=== PATIENT | female | born 2000 | race Caucasian/White ===

== ENCOUNTER 2021-07-23 01:14 | Emergency (ER) | payer MEDICAID, SELFPAY ==
[2021-07-23 01:21] VITALS: BP 127/71; PULSE 79; TEMP 36.7; O2SAT 96; BMI 30.2
[2021-07-23 04:48] VITALS: BP 122/70; PULSE 90; RESP 16; TEMP 36.6; O2SAT 97
--- NOTE | 2021-07-23 04:53 | PC.NURSE ---
Assumed care of pt Pt c/o itching at nape of neck, scalp, abdomen and back of bilateral hands x 2 weeks Per pt, areas get red when she scratches it. No redness in areas currently but pt c/o itching Denies use of any new soaps/lotions. Denies any allergies NAD Will continue to monitor
--- NOTE | 2021-07-23 05:07 | ED.SKABFB ---
HPI - Skin/Abscess/Foreign Bdy General Chief complaint: Skin/Abscess/Foreign Body Stated complaint: rash on arms, hands, neck Time Seen by Provider: 07/23/21 01:29 Source: patient Mode of arrival: ambulatory Limitations: no limitations History of Present Illness HPI narrative: Patient complaining of itchy feeling for last few days no rash no shortness of breath no facial swelling no lip swelling or tongue swelling Related Data Previous Rx's Medication Instructions Recorded hydroxyzine HCl 25 mg tablet 25 mg PO Q6-8H PRN #20 tab 07/23/21 Allergies Allergy/AdvReac Type Severity Reaction Status Date / Time No Known Allergies Allergy Verified 07/23/21 05:11 Review of Systems Review of Systems: Yes all other systems are reviewed and are negative PMFSH Social History Social History Advance Directives: No Patient : No Physical Exam Vital Signs: Vital Signs: Last Vital Signs Temp 97.9 F 07/23/21 04:48 Pulse 90 07/23/21 04:48 Resp 16 07/23/21 04:48 BP 122/70 07/23/21 04:48 Pulse Ox 97 07/23/21 04:48 BMI result Body Mass Index 30.2 Appearance: Alert. Oriented X3. No acute distress. Anxious ENT: Pharynx normal. Oral Mucosa moist Neck: Normal inspection. Neck supple. CVS: Normal heart rate and rhythm. Pulses normal. Respiratory: No respiratory distress. Equal air entry bilateral, no wheezing/rales/rhonchi Abdomen: Soft and nontender. Bowel sounds are present, Skin: Skin warm and dry. Normal skin color. Normal skin turgor. No rash noticed patient has dry skin Extremities: No lower Discharge Plan Discharge Clinical Impression: Dry skin dermatitis Patient Disposition: Home, Self-Care Instructions: Dermatitis (ED) Additional Instructions: You have itching secondary to dry skin Take Atarax for itching and apply moisturizing lotion daily Prescriptions: New hydroxyzine HCl 25 mg tablet 25 mg PO Q6-8H PRN (Reason: itching) Qty: 20 0RF
[2021-07-23] MEDS: hydrOXYzine HCL 25 MG TABLET PO (05:23)
--- NOTE | 2021-07-23 05:26 | PC.NURSE ---
Pt medicated per MAR Pt tolerated well Will continue to monitor
== END 2021-07-23 05:28 | disposition home or self-care (01) ==
PROVIDERS: Emergency Provider Internal Medicine
DX: L30.9 Dermatitis, unspecified (principal); R21 Rash and other nonspecific skin eruption
CPT/HCPCS: 99283

== ENCOUNTER 2021-12-19 11:33 | Emergency (ER) | payer MEDICAID, SELFPAY ==
--- NOTE | ~2021-12-19 | US_ITS ---
EXAMINATION: ULTRASOUND ABDOMEN LIMITED. ULTRASOUND OB LESS THAN 14 WEEKS CLINICAL INFORMATION: Bilateral upper quadrant pain. Positive . LMP 11/04/2021. Distal age by LMP 6 weeks 3 days and KIARA of 08/11/2022. COMPARISON: None TECHNIQUE: Limited ultrasound imaging of gallbladder and CBD was performed. Transabdominal imaging of pelvis is performed. FINDINGS: Limited abdomen: The gallbladder is visualized with no echogenic stones or wall thickening. No tenderness in right upper quadrant. CBD measures 0.2 cm. OB: There is intrauterine gestational sac and yolk sac. pole is not seen. There is no heart rate seen. Right ovary measures 2.4 x 1.6 x 1.5 cm and appears unremarkable. Left ovary measures 2.9 x 2.2 x 2.0 cm. There is corpus luteal cyst measuring 1.8 x 2.0 x 1.2 cm. There is no free fluid in the cul-de-sac. US/US abdomen limited IMPRESSION: Unremarkable gallbladder on limited abdomen ultrasound. Intrauterine gestational sac with yolk sac but no pole seen. No heart rate. This is most likely too early in the . Small corpus luteal cyst left ovary. No free fluid in cul-de-sac.
--- NOTE | ~2021-12-19 | US_ITS ---
EXAMINATION: ULTRASOUND ABDOMEN LIMITED. ULTRASOUND OB LESS THAN 14 WEEKS CLINICAL INFORMATION: Bilateral upper quadrant pain. Positive . LMP 11/04/2021. Distal age by LMP 6 weeks 3 days and KIARA of 08/11/2022. COMPARISON: None TECHNIQUE: Limited ultrasound imaging of gallbladder and CBD was performed. Transabdominal imaging of pelvis is performed. FINDINGS: Limited abdomen: The gallbladder is visualized with no echogenic stones or wall thickening. No tenderness in right upper quadrant. CBD measures 0.2 cm. OB: There is intrauterine gestational sac and yolk sac. pole is not seen. There is no heart rate seen. Right ovary measures 2.4 x 1.6 x 1.5 cm and appears unremarkable. Left ovary measures 2.9 x 2.2 x 2.0 cm. There is corpus luteal cyst measuring 1.8 x 2.0 x 1.2 cm. There is no free fluid in the cul-de-sac. US/US OB <= 14 weeks fetus IMPRESSION: Unremarkable gallbladder on limited abdomen ultrasound. Intrauterine gestational sac with yolk sac but no pole seen. No heart rate. This is most likely too early in the . Small corpus luteal cyst left ovary. No free fluid in cul-de-sac.
[2021-12-19 11:38] VITALS: BP 125/69; PULSE 67; RESP 16; TEMP 36.3; O2SAT 98; BMI 29.9
[2021-12-19 11:49] LABS: MANUAL DIFF FLAG NO
[2021-12-19 11:57] LABS: Basophils Percent Auto 0.8 % (0-2); Eosinophils Absolute Auto 0.1 X10*3/uL (0.0-0.4); Hematocrit 37.5 % (37.0-47.0); Hemoglobin 12.3 g/dl (12.0-16.0); Imm Gran Abs Auto 0.01 X10*3/uL (0.00-0.03); Imm Gran Pct Auto 0.2 % (0.0-0.4); Lymphocytes Absolute Auto 2.2 X10*3/uL (1.2-4.9); Mean Corpuscular HGB Conc 32.8 g/dl (31.0-35.0); Mean Corpuscular Hemoglobin 26.3 pg (27.0-33.0); Mean Corpuscular Volume 80.1 fL (80.0-98.0); Mean Platelet Volume 9.5 fL (9.4-12.3); Monocytes Absolute Auto 0.4 X10*3/uL (0.1-1.2); Monocytes Percent Auto 8.6 % (2-11); Neutrophils Absolute Auto 2.2 x10*3/uL (2.0-8.3); Neutrophils Percent Auto 44.4 % (45-73); Platelet Count 318 X10*3/uL (160-400); Red Blood Count 4.68 X10*6/uL (4.20-5.50); Red Cell Distribution Width 15.4 % (11.0-16.0); White Blood Count 4.9 X10*3/uL (4.8-10.8)
[2021-12-19 12:09] LABS: Anion Gap 13 (12-20); Blood Urea Nitrogen 6 mg/dL (9-16); Calcium 8.7 mg/dL (8.4-10.2); Carbon Dioxide 22 mmol/L (22-29); Chloride 108 mmol/L (96-108); Creatinine Clr Calc Pharmacy 137.1; Estimated Glomerular Filt Rate > 60; Glucose Random 93 mg/dL (60-115); Potassium 4.3 mmol/L (3.3-5.1); Sodium 139 mmol/L (135-145)
[2021-12-19 12:20] LABS: HCG Quantitative 9701 mIU/mL
--- NOTE | 2021-12-19 16:15 | ED_ITS ---
HPI - Abdominal Pain General Chief Complaint: Abdominal Pain <MAGGIE Martínez Last Filed: 12/19/21 18:50> Stated Complaint: abd pain <MAGGIE Martínez Last Filed: 12/19/21 18:50> Time Seen by Provider: 12/19/21 16:02 <MAGGIE Martínez Last Filed: 12/19/21 18:50> Source: patient <MAGGIE Martínez Last Filed: 12/19/21 18:50> Mode of arrival: ambulatory <MAGGIE Martínez Last Filed: 12/19/21 18:50> Limitations: no limitations <MAGGIE Martínez Last Filed: 12/19/21 18:50> History of Present Illness HPI narrative: 21-year-old female who is healthy presents with 2 weeks of left upper quadrant abdominal pain with nausea. Patient denies any associated diarrhea, constipation, urinary symptoms, fevers or chills. Patient tells me she took a home test that was positive and she felt the symptoms may be some morning sickness however the pain got more severe in the last 24 hours which prompted her to come into the emergency room. She is . Her last menstrual cycle was November 04. She has an appointment January 22 with a OBGYN at [place] for her 1st appointment. She has not had an ultrasound to confirm IUP to this point She denies any lower abdominal pain, vaginal bleeding or cramping <MAGGIE Martínez Last Filed: 12/19/21 18:50> Related Data Home Medications: Previous Rx's Medication Instructions Recorded hydroxyzine HCl 25 mg tablet 25 mg PO Q6-8H PRN itching #20 tabs 07/23/21 cefuroxime axetil 250 mg tablet 250 mg PO BID #14 tabs 12/19/21 <MAGGIE Martínez Last Filed: 12/19/21 18:50> Allergies/Adverse Reactions: Allergies Allergy/AdvReac Type Severity Reaction Status Date / Time No Known Allergies Allergy Verified 07/23/21 05:11 <MAGGIE Martínez Last Filed: 12/19/21 18:50> Review of Systems Review of Systems Yes all other systems are reviewed and are negative <Thais Santiago NP - Last Filed: 12/19/21 18:50> Constitutional: Reports no additional constitutional complaints, Denies body ache(s), Denies chills, Denies fever(s), Denies headache(s) and Denies weakness <Thais Santiago NP - Last Filed: 12/19/21 18:50> Eyes: Reports no additional eye complaints and Denies change in vision <Thais Santiago NP - Last Filed: 12/19/21 18:50> Reports system reviewed and no additional complaints, except as documented, Denies dizziness, Denies headache(s), Denies nasal congestion, Denies nasal discharge and Denies neck pain <Thais Santiago NP - Last Filed: 12/19/21 18:50> Cardiovascular: Reports no additional cardiovascular complaints, Denies chest pain, Denies leg edema and Denies dyspnea <Thais Santiago NP - Last Filed: 12/19/21 18:50> Respiratory: Reports no additional respiratory complaints, Denies cough and Denies dyspnea <Thais Santiago NP - Last Filed: 12/19/21 18:50> Gastrointestinal: Reports no additional gastrointestinal complaints, Reports abdominal pain, Denies diarrhea, Reports nausea and Denies vomiting <Thais Santiago NP - Last Filed: 12/19/21 18:50> Genitourinary: Reports no additional female genitourinary complaints and Denies urinary incontinence <Thais Santiago NP - Last Filed: 12/19/21 18:50> Musculoskeletal: Reports no additional musculoskeletal complaints, Denies back pain, Denies arthralgias, Denies joint swelling, Denies neck pain, Denies numbness and Denies tingling <Thais Santiago NP - Last Filed: 12/19/21 18:50> Skin/Breast: Reports system reviewed and no additional complaints, except as docu and Denies rash <Thais Santiago NP - Last Filed: 12/19/21 18:50> Reports system reviewed and no additional complaints, except as documented, Denies dizziness, Denies headache(s), Denies numbness, Denies tingling and Denies weakness <Thais Santiago NP - Last Filed: 12/19/21 18:50> [facility] Past Medical History Attestation statement: The following information was validated with the patient. <Thais Santiago NP - Last Filed: 12/19/21 18:50> Source: old records reviewed and nursing notes reviewed <Thais Santiago NP - Last Filed: 12/19/21 18:50> Social History Social History: Social History Advance Directives: No Advance Directives Information Provided: No <Thais Santiago NP - Last Filed: 12/19/21 18:50> Physical Exam ED Vital Signs: Vital Signs - 24 hr 12/19/21 11:38 Temperature 97.4 F Pulse Rate 67 Respiratory Rate 16 Blood Pressure 125/69 Pulse Oximetry 98 Oxygen Delivery Method Room Air BMI result Body Mass Index 29.9 <Thais Santiago NP - Last Filed: 12/19/21 18:50> Vital Signs - 24 hr 12/19/21 11:38 Temperature 97.4 F Pulse Rate 67 Respiratory Rate 16 Blood Pressure 125/69 Pulse Oximetry 98 Oxygen Delivery Method Room Air BMI result Body Mass Index 29.9 <BOBY Conti - Last Filed: 12/19/21 19:29> Const General: cooperative, healthy appearing, comfortable and no acute distress <Thais Santiago NP - Last Filed: 12/19/21 18:50> Orientation/consciousness: patient oriented x3 <Thais Santiago NP - Last Filed: 12/19/21 18:50> Limitations: no limitations <Thais Santiago NP - Last Filed: 12/19/21 18:50> HENMT Head: Yes normal to inspection <Thais Santiago NP - Last Filed: 12/19/21 18:50> Ears: hearing grossly normal bilaterally <Thais Santiago NP - Last Filed: 12/19/21 18:50> Eyes General: appearance normal, both eyes and all related structures <Thais Santiago NP - Last Filed: 12/19/21 18:50> Pupils: Equal, round and reactive pupils present <Thais Santiago NP - Last Filed: 12/19/21 18:50> Neck Neck: Yes normal visual inspection, Yes full ROM and Yes no lymphadenopathy <Thais Santiago NP - Last Filed: 12/19/21 18:50> Chest Chest palpation & inspection: normal inspection of the chest <Thais Santiago NP - Last Filed: 12/19/21 18:50> Resp Effort & Inspection: normal respiratory effort <Thais Santiago NP - Last Filed: 12/19/21 18:5 0> Auscultation: clear to auscultation bilaterally <Thais Santiago NP - Last Filed: 12/19/21 18:50> Cardio Rate: regular rate <Thais Santiago NP - Last Filed: 12/19/21 18:50> Rhythm: regular rhythm <Thais Santiago NP - Last Filed: 12/19/21 18:50> Peripheral pulses: Peripheral pulses 2+ throughout <Thais Santiago [employer] - Last Filed: 12/19/21 18:50> GI Inspection: Yes normal to inspection <Thais Santiago NP - Last Filed: 12/19/21 18:50> Palpation (GI): Soft to palpation and Tenderness to palpation present (GI) in the LUQ <Thais Santiago NP - Last Filed: 12/19/21 18:50> General: Yes no CVA tenderness <Thais Santiago NP - Last Filed: 12/19/21 18:50> Back/Spine/Pelvis Back: no CVA tenderness <Thais Santiago NP - Last Filed: 12/19/21 18:50> Thoracic/Lumbar Spine: thoracic and lumbar spine normal to inspection <Thais Santiago NP - Last Filed: 12/19/21 18:50> Skin General skin exam: no rashes or lesions noted <Thais Santiago NP - Last Filed: 12/19/21 18:50> Neuro General: patient oriented x3 and moves all extremities <Thais Santiago NP - Last Filed: 12/19/21 18:50> Cranial nerves: Yes Equal, round and reactive pupils present <Thais Santiago NP - Last Filed: 12/19/21 18:50> Cognition (Neuro): normal cognition <Thais Santiago NP - Last Filed: 12/19/21 18:50> Gait exam (Neuro): Normal gait present <Thais Santiago NP - Last Filed: 12/19/21 18:50> Course Course Course Narrative: UA is consistent with UTI. Labs unremarkable. Patient will have abdominal ultrasound as well as ultrasound. No -related complaints. <Thais Santiago NP - Last Filed: 12/19/21 18:50> Reevaluation(s) Reevaluation #1: 1850- SIgn out to [facility] pending ultrasound and disposition <Thais Santiago NP - Last Filed: 12/19/21 18:50> Reevaluation #2: Ultrasound showing no acute intra abdominal pathology. Gestational sac and yolk were seen intrauterine, no heart tones most likely due to too early in . At this time patient is stable for discharge home with plan to follow-up with her OB. Antibiotics sent to her pharmacy for UTI. <BOBY Conti - Last Filed: 12/19/21 19:29> MDM - Abdominal Pain MDM Narrative Medical decision making narrative: 21-year-old female who is currently here with left upper quadrant abdominal pain for the last 2 weeks worsened over the last 24 hours with intermittent nausea. Patient will need labs, UA, anticipate US. No related complaints <Thais Santiago NP - Last Filed: 12/19/21 18:50> Medical Records Attestation: I reviewed the patient's medical records. <Thais Santiago NP - Last Filed: 12/19/21 18:50> Lab Data Attestation: I reviewed the patient's lab results. <Thais Santiago NP - Last Filed: 12/19/21 18:50> Result diagrams: : 12/19/21 11:45 08/16/22 11:45 <Thais Santiago, [employer] - Last Filed: 12/19/21 18:50> Labs: Lab Results 12/19/21 12/19/21 12/19/21 Range/Units 11:45 11:45 16:31 WBC 4.9 (4.8-10.8) X10*3/uL RBC 4.68 (4.20-5.50) X10*6/uL Hgb 12.3 (12.0-16.0) g/dl Hct 37.5 (37.0-47.0) % MCV 80.1 (80.0-98.0) fL MCH 26.3 L (27.0-33.0) pg MCHC 32.8 (31.0-35.0) g/dl RDW 15.4 (11.0-16.0) % Plt Count 318 (160-400) X10*3/uL MPV 9.5 (9.4-12.3) fL Immature Gran % (Auto) 0.2 (0.0-0.4) % Neut % (Auto) 44.4 L (45-73) % Lymph % (Auto) 45.0 H (20-40) % [place] % (Auto) 8.6 (2-11) % Eos % (Auto) 1.0 (0-4) % Baso % (Auto) 0.8 (0-2) % Lymph # (Auto) 2.2 (1.2-4.9) X10*3/uL [place] # (Auto) 0.4 (0.1-1.2) X10*3/uL Eos # (Auto) 0.1 (0.0-0.4) X10*3/uL Baso # (Auto) 0.0 (0.0-0.2) X10*3/uL Abs Immat Gran (auto) 0.01 (0.00-0.03) X10*3/uL Absolute Neuts (auto) 2.2 (2.0-8.3) x10*3/uL Absolute Nucleated RBC 0.000 (0.0-0.012) X10*3/uL Nucleated RBC % (auto) 0.0 (0.0-0.2) /100WBC Sodium 139 (135-145) mmol/L Potassium 4.3 (3.3-5.1) mmol/L Chloride 108 (96-108) mmol/L Carbon Dioxide 22 (22-29) mmol/L Anion Gap 13 (12-20) BUN 6 L (9-16) mg/dL Creatinine 0.71 (0.5-1.4) mg/dL Estim Creat Clear Calc 137.1 Estimated GFR > 60 Random Glucose 93 (60-115) mg/dL Calcium 8.7 (8.4-10.2) mg/dL Total Bilirubin 0.3 (0.0-1.0) mg/dL Direct Bilirubin 0.2 (0.0-0.5) mg/dL AST 14 (5-31) U/L ALT 12 (0-31) U/L Alkaline Phosphatase 80 (39-117) U/L Total Protein 7.2 (6.5-8.0) g/dL Albumin 4.2 (3.5-5.0) g/dL Lipase 31 (8-78) U/L Beta HCG, Quant 9701 mIU/mL Urine Color Yellow Urine Appearance Cloudy Urine pH 6.5 (5.0-8.0) Ur Specific [place] 1.025 (1.005-1.025) Urine Protein Negative (Neg-Trace) mg/dL Urine Glucose (UA) Negative (Negative) mg/dL Urine Ketones Trace (Negative) mg/dL Urine Blood Negative (Negative) Urine Nitrite Negative (Negative) Ur Leukocyte Esterase Moderate (2+) H (Negative) Urine RBC 3-5 H (0-2) /HPF Urine WBC 11-20 H (0-5) /HPF Ur Squamous Epith Cells 11-20 (0-2) /HPF Urine Bacteria 2+ (None Seen) Hyaline Casts 0-2 (0-2) /LPF <Thais Santiago, [employer] - Last Filed: 12/19/21 18:50> Lab Results 12/19/21 12/19/21 12/19/21 Range/Units 11:45 11:45 16:31 WBC 4.9 (4.8-10.8) X10*3/uL RBC 4.68 (4.20-5.50) X10*6/uL Hgb 12.3 (12.0-16.0) g/dl Hct 37.5 (37.0-47.0) % MCV 80.1 (80.0-98.0) fL MCH 26.3 L (27.0-33.0) pg MCHC 32.8 (31.0-35.0) g/dl RDW 15.4 (11.0-16.0) % Plt Count 318 (160-400) X10*3/uL MPV 9.5 (9.4-12.3) fL Immature Gran % (Auto) 0.2 (0.0-0.4) % Neut % (Auto) 44.4 L (45-73) % Lymph % (Auto) 45.0 H (20-40) % [place] % (Auto) 8.6 (2-11) % Eos % (Auto) 1.0 (0-4) % Baso % (Auto) 0.8 (0-2) % Lymph # (Auto) 2.2 (1.2-4.9) X10*3/uL [place] # (Auto) 0.4 (0.1-1.2) X10*3/uL Eos # (Auto) 0.1 (0.0-0.4) X10*3/uL Baso # (Auto) 0.0 (0.0-0.2) X10*3/uL Abs Immat Gran (auto) 0.01 (0.00-0.03) X10*3/uL Absolute Neuts (auto) 2.2 (2.0-8.3) x10*3/uL Absolute Nucleated RBC 0.000 (0.0-0.012) X10*3/uL Nucleated RBC % (auto) 0.0 (0.0-0.2) /100WBC Sodium 139 (135-145) mmol/L Potassium 4.3 (3.3-5.1) mmol/L Chloride 108 (96-108) mmol/L Carbon Dioxide 22 (22-29) mmol/L Anion Gap 13 (12-20) BUN 6 L (9-16) mg/dL Creatinine 0.71 (0.5-1.4) mg/dL Estim Creat Clear Calc 137.1 Estimated GFR > 60 Random Glucose 93 (60-115) mg/dL Calcium 8.7 (8.4-10.2) mg/dL Total Bilirubin 0.3 (0.0-1.0) mg/dL Direct Bilirubin 0.2 (0.0-0.5) mg/dL AST 14 (5-31) U/L ALT 12 (0-31) U/L Alkaline Phosphatase 80 (39-117) U/L Total Protein 7.2 (6.5-8.0) g/dL Albumin 4.2 (3.5-5.0) g/dL Lipase 31 (8-78) U/L Beta HCG, Quant 9701 mIU/mL Urine Color Yellow Urine Appearance Cloudy Urine pH 6.5 (5.0-8.0) Ur Specific [place] 1.025 (1.005-1.025) Urine Protein Negative (Neg-Trace) mg/dL Urine Glucose (UA) Negative (Negative) mg/dL Urine Ketones Trace (Negative) mg/dL Urine Blood Negative (Negative) Urine Nitrite Negative (Negative) Ur Leukocyte Esterase Moderate (2+) H (Negative) Urine RBC 3-5 H (0-2) /HPF Urine WBC 11-20 H (0-5) /HPF Ur Squamous Epith Cells 11-20 (0-2) /HPF Urine Bacteria 2+ (None Seen) Hyaline Casts 0-2 (0-2) /LPF <BOBY Conti - Last Filed: 12/19/21 19:29> Discharge Plan Discharge Clinical Impression: Abdominal pain, UTI (urinary tract infection) <Thais Santiago NP - Last Filed: 12/19/21 18:50> Patient Disposition: Still a Patient <Thais Santiago NP - Last Filed: 12/19/21 18:50> Instructions: Abdominal Pain (ED), Urinary Tract Infection in (ED) <Thais Santiago NP - Last Filed: 12/19/21 18:50> Additional Instructions: keep your appointment with the [facility] Tylenol only for pain Take your vitamins Return for intractable vomiting, fever, severe abdominal pain, vaginal bleeding <Thais Santiago NP - Last Filed: 12/19/21 18:50> Prescriptions: New cefuroxime axetil 250 mg tablet 250 mg PO BID Qty: 14 0RF No Action hydroxyzine HCl 25 mg tablet 25 mg PO Q6-8H PRN (Reason: itching) Qty: 20 0RF <Thais Santiago NP - Last Filed: 12/19/21 18:50> Referrals: Physician,Nonstaff [Primary Care Provider] - <Thais Santiago NP - Last Filed: 12/19/21 18:50>
[2021-12-19 16:38] LABS: Appearance Urine Cloudy; Color Urine Yellow; Glucose Urine UA Negative (Negative); Leukocyte Esterase Urine Moderate (2+) (Negative); Nitrite Urine Negative (Negative); PH 6.5 (5.0-8.0); Specific Gravity - Urine 1.025 (1.005-1.025); Urine Blood Negative (Negative); Urine Ketones Trace mg/dL (Negative); Urine Protein Negative (Neg-Trace)
[2021-12-19 16:42] LABS: Alanine Aminotransferase 12 U/L (0-31); Albumin Level 4.2 g/dL (3.5-5.0); Alkaline Phosphatase 80 U/L (39-117); Aspartate Amino Transferase 14 U/L (5-31); Bilirubin Direct 0.2 mg/dL (0.0-0.5); Bilirubin Total 0.3 mg/dL (0.0-1.0); Lipase 31 U/L (8-78); Total Protein 7.2 g/dL (6.5-8.0)
[2021-12-19 16:47] LABS: Bacteria Urine 2+ (None Seen); Hyaline Casts Urine 0-2 /LPF (0-2); UACC Culture Trigger YES
[2021-12-19 19:39] VITALS: BP 122/71; PULSE 75; RESP 12; TEMP 37.2; O2SAT 98
== END 2021-12-19 19:40 | disposition still patient (30) ==
PROVIDERS: Emergency Medicine; Nurse Practitioner Family; Emergency Provider Internal Medicine
DX: N39.0 Urinary tract infection, site not specified (principal); R10.12 Left upper quadrant pain; Z79.899 Other long term (current) drug therapy
CPT/HCPCS: 36415; 76705; 76801; 80048; 80076; 81001; 83690; 84702; 85025; 87086; 99283; 99284

== ENCOUNTER 2023-02-04 11:36 | Outpatient (REF) | payer MEDICAID, SELFPAY ==
--- NOTE | ~2023-02-04 | XR_ITS ---
EXAMINATION: XR CHEST CLINICAL INFORMATION: Chest pain since last night. Atypical chest pain COMPARISON: None available. TECHNIQUE: 2 views of the chest were obtained. 11:45 AM FINDINGS: No significant abnormality is noted involving the heart, lungs, mediastinum, bony thorax or soft tissues. XR/XR chest 2V IMPRESSION: No acute cardiopulmonary disease.
== END 2023-02-04 11:37 | disposition home or self-care (01) ==
LOC: HO.HHCX 11:36
PROVIDERS: Visit Provider Internal Medicine
DX: R07.89 Other chest pain (principal)
CPT/HCPCS: 36415; 71046; 85025; 85379; 85652

== ENCOUNTER 2023-02-04 12:21 | Outpatient (REF) | payer MEDICAID, SELFPAY ==
[2023-02-04 12:53] LABS: MANUAL DIFF FLAG NO
[2023-02-04 13:48] LABS: Basophils Percent Auto 0.7 % (0-2); Eosinophils Absolute Auto 0.1 X10*3/uL (0.0-0.4); Eosinophils Percent Auto 2.2 % (0-4); Hematocrit 38.3 % (37.0-47.0); Hemoglobin 11.7 g/dl (12.0-16.0); Imm Gran Abs Auto 0.02 X10*3/uL (0.00-0.03); Imm Gran Pct Auto 0.4 % (0.0-0.4); Lymphocytes Absolute Auto 2.5 X10*3/uL (1.2-4.9); Lymphocytes Percent Auto 45.1 % (20-40); Mean Corpuscular HGB Conc 30.5 g/dl (31.0-35.0); Mean Corpuscular Hemoglobin 23.2 pg (27.0-33.0); Mean Corpuscular Volume 75.8 fL (80.0-98.0); Mean Platelet Volume 9.7 fL (9.4-12.3); Monocytes Absolute Auto 0.5 X10*3/uL (0.1-1.2); Monocytes Percent Auto 8.1 % (2-11); Neutrophils Absolute Auto 2.4 x10*3/uL (2.0-8.3); Neutrophils Percent Auto 43.5 % (45-73); Platelet Count 278 X10*3/uL (160-400); Red Blood Count 5.05 X10*6/uL (4.20-5.50); Red Cell Distribution Width 21.7 % (11.0-16.0); White Blood Count 5.5 X10*3/uL (4.8-10.8)
[2023-02-04 14:19] LABS: D Dimer High Sensitivity 263 NG/ML
[2023-02-04 14:20] LABS: Erythrocyte Sedimentation Rate 22 MM/HR (0-20)
== END 2023-02-04 12:22 | disposition home or self-care (01) ==
LOC: HO.LAB 12:21
PROVIDERS: PCP Family Medicine; Visit Provider Internal Medicine
DX: R07.89 Other chest pain (principal)
CPT/HCPCS: 36415; 85025; 85379; 85652

== ENCOUNTER 2023-03-08 09:44 | Outpatient (REF) | payer MEDICAID, SELFPAY ==
[2023-03-08 14:44] LABS: MANUAL DIFF FLAG NO
[2023-03-08 14:47] LABS: Basophils Absolute Auto 0.1 X10*3/uL (0.0-0.2); Eosinophils Absolute Auto 0.2 X10*3/uL (0.0-0.4); Eosinophils Percent Auto 2.8 % (0-4); Hematocrit 39.3 % (37.0-47.0); Hemoglobin 12.5 g/dl (12.0-16.0); Imm Gran Abs Auto 0.01 X10*3/uL (0.00-0.03); Imm Gran Pct Auto 0.2 % (0.0-0.4); Lymphocytes Absolute Auto 2.7 X10*3/uL (1.2-4.9); Lymphocytes Percent Auto 43.2 % (20-40); Mean Corpuscular HGB Conc 31.8 g/dl (31.0-35.0); Mean Corpuscular Hemoglobin 25.2 pg (27.0-33.0); Mean Corpuscular Volume 79.1 fL (80.0-98.0); Mean Platelet Volume 9.5 fL (9.4-12.3); Monocytes Absolute Auto 0.6 X10*3/uL (0.1-1.2); Monocytes Percent Auto 9.5 % (2-11); Neutrophils Absolute Auto 2.7 x10*3/uL (2.0-8.3); Neutrophils Percent Auto 43.3 % (45-73); Platelet Count 388 X10*3/uL (160-400); Red Blood Count 4.97 X10*6/uL (4.20-5.50); Red Cell Distribution Width 22.6 % (11.0-16.0); White Blood Count 6.1 X10*3/uL (4.8-10.8)
[2023-03-08 15:41] LABS: Iron 38 mcg/dL (30-160); Percent Iron Saturation 12 % (15-50); Total Iron Binding Capacity 311 mcg/dL (228-428); Unsaturated Iron Binding 273 ug/dL
[2023-03-08 15:56] LABS: Ferritin 18 ng/mL (10-122)
[2023-03-12 12:18] LABS: VITAMIN D (1,25 OH) D3 53 pg/mL; Vit D (1,25-Dihydroxy) Total 53 pg/mL (18-72); Vitamin D (1,25 OH) D2 <8 pg/mL
== END 2023-03-08 09:45 | disposition home or self-care (01) ==
LOC: HO.CHCLDS 09:44
PROVIDERS: Visit Provider Family Medicine
DX: D50.9 Iron deficiency anemia, unspecified (principal); E55.9 Vitamin D deficiency, unspecified
CPT/HCPCS: 36415; 82652; 82728; 83540; 85025

== ENCOUNTER 2023-03-26 00:02 | Emergency (ER) | payer MEDICAID, SELFPAY ==
[2023-03-26 00:22] VITALS: BP 124/72; PULSE 67; RESP 18; TEMP 37; O2SAT 98; BMI 30.2
--- NOTE | 2023-03-26 00:38 | ED.GENADULT ---
HPI - General Adult General Chief complaint: General Medical Stated complaint: Rectal bleeding Time Seen by Provider: 03/26/23 00:35 Source: patient Mode of arrival: ambulatory Limitations: no limitations History of Present Illness HPI narrative: Patient 3 months noticed bright red blood when she wiped earlier today patient has been constipated lately no history of hemorrhoids no significant abdominal pain no nausea no vomiting no blood clots no significant family history of chronic inflammatory bowel disease no rectal pain Related Data Previous Rx's Medication Instructions Recorded hydroxyzine HCl 25 mg tablet 25 mg PO Q6-8H PRN itching #20 tabs 07/23/21 cefuroxime axetil 250 mg tablet 250 mg PO BID #14 tabs 12/19/21 hydrocortisone acetate 25 mg 25 mg [place] BID #24 ea 03/26/23 rectal suppository (Anusol-HC) polyethylene glycol 3350 17 17 g PO DAILY #510 grams 03/26/23 gram/dose oral powder (Miralax) Allergies Allergy/AdvReac Type Severity Reaction Status Date / Time No Known Allergies Allergy Verified 03/26/23 00:21 Review of Systems Review of Systems: Yes all other systems are reviewed and are negative [facility] Social History Social History Smoked in Last 30 Days: No Use of substances other than those prescribed or required for medical reasons: No Advance Directives: No Advance Directives Information Provided: Yes Physical Exam ED Vital Signs: Vital Signs - 24 hr 03/26/23 00:22 Temperature 98.6 F Pulse Rate 67 Respiratory Rate 18 Blood Pressure 124/72 Pulse Oximetry 98 Oxygen Delivery Method Room Air BMI result Body Mass Index 30.2 Appearance: Alert. Oriented X3. No acute distress. Eyes: PERRLA, No Nystagmus ENT: Pharynx normal. Oral Mucosa moist Neck: Normal inspection. Neck supple. CVS: Normal heart rate and rhythm. Pulses normal. Respiratory: No respiratory distress. Equal air entry bilateral, no wheezing/rales/rhonchi Abdomen: Soft and nontender. Bowel sounds are present, no mass palpable, no CVA tenderness rectal: Patient deferred exam Skin: Skin warm and dry. Normal skin color. Normal skin turgor. Extremities: No lower extremity edema. No calf tenderness Neuro: Oriented X 3. Medications Administered Discontinued Medications Generic Name Dose Route Start Last Admin Trade Name Freq PRN Reason Stop Dose Admin Magnesium Hydroxide 30 ml 03/26/23 00:46 03/26/23 01:04 Milk Of Magnesia 30 Ml Oral.Susp PO 03/26/23 00:47 30 ml ONCE ONE Administration Medical Decision Making Medical Decision Making [facility] Narrative: Patient clinically with internal hemorrhoids with minor bleed H&H stable chemistries stable advised to use Anusol suppository and avoid constipation Differential Diagnosis Differential Diagnoses: The differential diagnosis associated with the presentation includes Lab Data [facility] Lab Attestation statement: I reviewed the patient's lab results. 03/26/23 00:35 03/26/23 00:35 Labs: Lab Results 03/26/23 Range/Units 00:35 WBC 7.0 (4.8-10.8) X10*3/uL RBC 4.51 (4.20-5.50) X10*6/uL Hgb 11.3 L (12.0-16.0) g/dl Hct 35.5 L (37.0-47.0) % MCV 78.7 L (80.0-98.0) fL MCH 25.1 L (27.0-33.0) pg MCHC 31.8 (31.0-35.0) g/dl RDW 19.4 H (11.0-16.0) % Plt Count 289 D (160-400) X10*3/uL MPV 9.4 (9.4-12.3) fL Immature Gran % (Auto) 0.3 (0.0-0.4) % Neut % (Auto) 44.8 L (45-73) % Lymph % (Auto) 43.2 H (20-40) % [place] % (Auto) 8.7 (2-11) % Eos % (Auto) 2.4 (0-4) % Baso % (Auto) 0.6 (0-2) % Lymph # (Auto) 3.0 (1.2-4.9) X10*3/uL [place] # (Auto) 0.6 (0.1-1.2) X10*3/uL Eos # (Auto) 0.2 (0.0-0.4) X10*3/uL Baso # (Auto) 0.0 (0.0-0.2) X10*3/uL Abs Immat Gran (auto) 0.02 (0.00-0.03) X10*3/uL Absolute Neuts (auto) 3.2 (2.0-8.3) x10*3/uL Absolute Nucleated RBC 0.000 (0.0-0.012) X10*3/uL Nucleated RBC % (auto) 0.0 (0.0-0.2) /100WBC Sodium 140 (135-145) mmol/L Potassium 3.6 (3.3-5.1) mmol/L Chloride 109 H (96-108) mmol/L Carbon Dioxide 25 (22-29) mmol/L Anion Gap 10 L (12-20) BUN 10 (9-16) mg/dL Creatinine 0.71 (0.5-1.4) mg/dL Estim Creat Clear Calc 136.3 Estimated GFR > 60 Random Glucose 117 H (60-115) mg/dL Calcium 8.8 (8.4-10.2) mg/dL Total Bilirubin 0.2 (0.0-1.0) mg/dL AST 14 (5-31) U/L ALT 15 (0-31) U/L Alkaline Phosphatase 96 (39-117) U/L Total Protein 6.8 (6.5-8.0) g/dL Albumin 3.7 (3.5-5.0) g/dL Discharge Plan Discharge Clinical Impression: Bleeding internal hemorrhoids, Constipation Patient Disposition: Home, Self-Care Instructions: Constipation (ED), Hemorrhoids (ED) Additional Instructions: Avoid constipation Take stool softener as prescribed Use Anusol suppository twice daily as advised Prescriptions: New polyethylene glycol 3350 [Miralax] 17 gram/dose powder 17 g PO DAILY Qty: 510 0RF hydrocortisone acetate [Anusol-HC] 25 mg suppository 25 mg [place] BID Qty: 24 0RF No Action hydroxyzine HCl 25 mg tablet 25 mg PO Q6-8H PRN (Reason: itching) Qty: 20 0RF cefuroxime axetil 250 mg tablet 250 mg PO BID Qty: 14 0RF
[2023-03-26 00:39] LABS: Basophils Percent Auto 0.6 % (0-2); Eosinophils Absolute Auto 0.2 X10*3/uL (0.0-0.4); Eosinophils Percent Auto 2.4 % (0-4); Hematocrit 35.5 % (37.0-47.0); Hemoglobin 11.3 g/dl (12.0-16.0); Imm Gran Abs Auto 0.02 X10*3/uL (0.00-0.03); Imm Gran Pct Auto 0.3 % (0.0-0.4); Lymphocytes Percent Auto 43.2 % (20-40); MANUAL DIFF FLAG NO; Mean Corpuscular HGB Conc 31.8 g/dl (31.0-35.0); Mean Corpuscular Hemoglobin 25.1 pg (27.0-33.0); Mean Corpuscular Volume 78.7 fL (80.0-98.0); Mean Platelet Volume 9.4 fL (9.4-12.3); Monocytes Absolute Auto 0.6 X10*3/uL (0.1-1.2); Monocytes Percent Auto 8.7 % (2-11); Neutrophils Absolute Auto 3.2 x10*3/uL (2.0-8.3); Neutrophils Percent Auto 44.8 % (45-73); Platelet Count 289 X10*3/uL (160-400); Red Blood Count 4.51 X10*6/uL (4.20-5.50); Red Cell Distribution Width 19.4 % (11.0-16.0)
--- OUTSIDE RECORDS SUMMARY | 2023-03-26 00:44 | XMS_ITS | Continuity of Care Document ---
Author Name Unknown Organization [facility] ter Address [address] [place] [id number]- Care Team Providers Care Commissioning Manager Name Role Phone Not on Staff, PCP Primary Care Physician Unavail able Encounter [facility] Date(s): 12/19/22 - 12/21/[address] [address]- Discharge Disposition: A-D/C Home Attending Physician: Rosemarie Hearn DO Admitting Physician: Rosemarie Hearn DO Referring Physician: Rosemarie Hearn DO Allergies, Adverse Reactions, Alerts No Known Medication Allergies Immunizations Given and Recorded Vaccine Date Status Refusal Reason tetanus/diphtheria/pertussis, acel(Tdap) 10/26/22 Given Medications Acetaminophen Tablet 650 mg, Tablet, By Mouth, Every 4 hours, PRN for Pain , Mild, (1-3), may give 325mg per patient preference and re-dose with 325mg within 4 hours, if needed. Patient should only receive a total of 650mg of Acetaminophen every 4 hours., Routine, 12/19... Start Date: 12/19/22 Stop Date: 12/22/22 Status: Discontinued Alcohol Wipes See Instructions, # 200 each, Maintenance, glucose monitoring 4 times daily during , 10/15/22 11:28:00 EDT, Supply, 168, cm, 10/03/22 14:55:00 EDT, Height, 86, kg, 10/01/22 20:23:00 EDT, DryWeight Start Date: 10/15/22 Status: Ordered aspirin 81 mg oral delayed release tablet See Instructions, 2 tablet By Mouth Daily at bedtime, # 60 tablet, Refills 8, Tot. Refills 8, Maintenance, 08/30/22 14:18:00 EDT, Instructions Replace Required Details, Route to Pharmacy Electronically, [facility] #[id number], Partial fill upon p... Start Date: 08/30/22 Status: Ordered docusate sodium 100 mg oral capsule 1 capsule = 100 mg, By Mouth, 2 times a day, PRN as needed for constipation, # 20 capsule, 2 Refills, Maintenance, 11/15/22 12:51:00 EDT, Capsule, [facility] #[id number], Partial fill upon patient request if the prescription is for a schedule II... Start Date: 11/15/22 Status: Ordered famotidine 20 mg oral tablet 20 mg, 1, tablet, By Mouth, 2 times a day, Take twice daily for acid reflux and to help with nauseaand vomiting., # 60 tablet, Refills 2, Tot. Refills 2, Maintenance, 10/03/22 15:40:00 EDT, Route toPharmacy Electronically, [facility] #[id number]... Start Date: 10/03/22 Status: Ordered Freestyle Lite Lancets See Instructions, # 200 each, Maintenance, glucose monitoring 4 times daily during , 10/15/22 11:28:00 EDT, Supply, 168, cm, 10/03/22 14:55:00 EDT, Height, 86, kg, 10/01/22 20:23:00 EDT, DryWeight Start Date: 10/15/22 Status: Ordered ibuprofen 600 mg oral tablet 600 mg, 1, tablet, By Mouth, Every 6 hours, # 40 tablet, Refills 0, Tot. Refills 0, Maintenance, 12/20/22 9:10:00 EDT, Route to Pharmacy Electronically, [facility] #[id number], Partial fill uponpatient request if the prescription is for a schedu... Start Date: 12/20/22 Status: Ordered Ibuprofen Tablet 800 mg, Tablet, By Mouth, Every 8 hours, PRN for Pain , Moderate, (4-6), may give 400mg per patientpreference and re-dose with 400mg within 8 hours if needed. Patient should only receive a total of 800mg of Ibuprofen every 8 hours., Routine, ... Start Date: 12/19/22 Stop Date: 12/22/22 Status: Discontinued MiraLax oral powder for reconstitution = 17 Gm, By Mouth, Daily, Take daily as needed for constipation, # 255 Gm, 1 Refills, Maintenance, 06/25/22 15:48:00 EST, REC Powder, [facility] #[id number], Partial fill upon patient request ifthe prescription is for a schedule II opioid drug.,... Start Date: 06/25/22 Status: Ordered MiraLax oral powder for reconstitution = 17 Gm, By Mouth, Daily, dissolve in water before taking, # 255 Gm, 0 Refills, Maintenance, 12/20/22 9:10:00 EDT, REC Powder, [facility] #[id number], Partial fill upon patient request if the prescription is for a schedule II opioid drug., 17 Gm... Start Date: 12/20/22 Status: Ordered MiraLax oral powder for reconstitution = 17 Gm, By Mouth, Daily, dissolve in water before taking. Use daily until regular bowel movements., # 255 Gm, 4 Refills, Maintenance, 11/15/22 12:51:00 EDT, [id number], Partial fill upon patient request if the prescriptio... Start Date: 11/15/22 Status: Ordered Multivitamins with Folic Acid 1 mg oral tablet 1 tablet, By Mouth, Daily, # 30 tablet, 0 Refills, Maintenance, 03/07/22 11:03:00 EDT, Tablet, Partial fill upon patient request if the prescription is for a schedule II opioid drug. Start Date: 03/07/22 Status: Ordered simethicone 180 mg oral capsule 1 capsule = 180 mg, By Mouth, 4 times a day, # 60 capsule, 0 Refills, Maintenance, 12/20/22 9:10:00EDT, Capsule, [facility] #[id number], Partial fill upon patient request if the prescription isfor a schedule II opioid drug., 168, cm, 12/20/22 8... Start Date: 12/20/22 Status: Ordered Tylenol 325 mg oral tablet 975 mg, 3, tablet, By Mouth, Every 8 hours, # 60 tablet, Refills 0, Tot. Refills 0, Maintenance, 12/20/22 9:10:00 EDT, Route to Pharmacy Electronically, [facility] #[id number], Partial fill uponpatient request if the prescription is for a schedu... Start Date: 12/20/22 Status: Ordered Unisom 25 mg oral tablet 1 tablet = 25 mg, By Mouth, Daily at bedtime, PRN for sleep, # 32 tablet, 0 Refills, Maintenance, 07/03/22 5:15:00 EST, Tablet, [facility] #[id number], Partial fill upon patient request if the prescription is for a schedule II opioid drug., 168,... Start Date: 07/03/22 Status: Ordered Problem List Condition Confirmation Course Effective Dates Status Health St atus Informant Marginal insertion of umbilical cord affecting management of mother Confirmed Active Anemia Confirmed Active Constipation Confirmed Active Increased nuchal translucency space on ultrasound Confirmed Active Frequent headaches Confirmed Active Acid reflux Confirmed Active Gestational diabetes Confirmed Active Three previous miscarriages, affecting care of mother in first trimester, antepartum Confirmed Active H/O gestational diabetes in prior , currently 1 Confirmed Active History of placental abruption Confirmed Active Confirmed Active 99069 then 3 miscarriages Vital Signs Most recent to oldest [Reference Range]: 1 2 3 Height 168 cm (12/21/22 8:50 AM) 168 cm (12/20/22 4:45 PM) 168 cm (12/20/22 8:57 AM) Weight 91.8 kg (12/19/22 6:25 AM) 91.8 kg (12/19/22 2:23 AM) Oxygen Saturation [94-100 %] 97 % (12/21/22 8:50 AM) 100 % (12/21/22 12:00 AM) 98 % (12/20/22 4:45 PM) Pulse Rate [55-90 bpm] 68 bpm (12/21/22 8:50 AM) 67 bpm (12/21/22 12:00 AM) 76 bpm (12/20/22 4:45 PM) Body Mass Index [18.5-24.99 kg/m2] 32.53 kg/m2 *>HHI* (12/19/22 6:25 AM) Blood Pressure [90-138/55-84 mm Hg] 118/77mm Hg (12/21/22 8:50 AM) 117/68mm Hg (12/21/22 12:00 AM) 121/74mm Hg (12/20/22 4:45 PM) Respiratory Rate [16-30 br/min] 18 br/min (12/21/22 10:00 AM) 18 br/min (12/21/22 10:00 AM) 18 br/min (12/21/22 8:50 AM) Temperature [96.8-100.4 DegF] 98.1 DegF (12/21/22 8:50 AM) 98.4 DegF (12/21/22 12:00 AM) 98.2 DegF (12/20/22 4:45 PM) Mode of Delivery (Oxygen) Room air (12/21/22 8:50 AM) Room air (12/21/22 12:00 AM) Room air (12/20/22 4:45 PM) Blood pressure sites Arm, right (12/21/22 8:50 AM) Arm, right (12/21/22 12:00 AM) Arm, right (12/20/22 4:45 PM) Temperature Route Oral (12/21/22 8:50 AM) Oral (12/21/22 12:00 AM) Oral (12/20/22 4:45 PM) Dry Weight 91.8 kg (12/19/22 6:25 AM) 91.8 kg (12/19/22 2:23 AM) Weight Obtained Via Standing scale (12/19/22 2:23 AM) Dry Weight Obtained Via Standing scale (12/19/22 2:23 AM) Social History Social History Type Response Smoking Status Never (less than 100 in lifetime) entered on: 05/22/22 Sex History and physical note * Will Linda MD: PERFORM Event Display: History and Physical Hospital Authored Date: [id number] Patient: ??RUDY WILKINS ? Age:??22 Years?Sex:??Female?:??2000?? OB Reason for Admission OB Reason for Admission Reason for admission: labor LMP/EGA/KIARA Gestational Age (EGA) and KIARA? * Note: EGA calculated as of 12/19/2022 ?? KIARA:??01/18/2023?EGA*:??35 weeks 5 days ? History?(1,0,3,1)?Method:??Ultrasound??(06/04/2022) History of Present Illness Patient is a??22 year old @??35w5d gestation??presenting for labor. She reports regular contractions every 2-5 minutes. Denies??LOF, VB. Reports decreased movement for 2 days. Denies fever/chills, LIMA, dizziness, changes in vision, CP, SOB, RUQ pain, UE/LE swelling. Overall, doing well with no complaints. Review of Systems Constitutional:??No fever, chills, or fatigue. HEENT:??No changes in vision, sneezing, congestion, runny nose or sore throat. Skin:??No rash or itching. Cardiovascular:??No chest pain. Respiratory:??No shortness of breath. Gastrointestinal:??No anorexia, nausea/vomiting, constipation/diarrhea. Genitourinary:??No burning micturition, urinary frequency or incontinence. Gynecologic: No vaginal bleeding, vaginal discharge, or vaginal itching. Neurologic:??No headaches. Musculoskeletal:??No muscle pains. Psychiatric:??No depression or anxiety. Physical Exam Vitals & Measurements T:??98.0?F?? HR:??71??(Monitored)?? RR:??18?? BP:??111/63?? SpO2:??99%?? WT:??91.8??kg?? Constitutional:??Well-developed, no acute distress. Respiratory:??Unlabored breathing. ?? Abdomen/GI:??Soft, non-tender, non-distended, no guarding or rebound tenderness.??Gravid. Gynecologic:?External Genitalia: normal exam, without lesions ??Vagina: no lesions, well-rugated ??Cervix: normal exam, no lesions Extremities:??Warm and well-perfused.?? Skin:??Normal for ethnicity. Neurological/Psychiatric:??Appearance appropriate, mood and affect stable. Presentation confirmed by:??Cephalic by U/S OB Assessment Baby A Cervical Estimated Weight:2800 gm Membrane Status:Intact Cervical Cervical Dilatation4 cm Cervical Vilusiqfye24% Station-2 Assessment/Plan Assessment:??22 yo @35w5d admitted for labor. GBS negative. Early labor. Expectant management at this time. Cat I tracing. ?? labor (O60.00):? -Expectant management -Continuous monitoring -Low PPH risk -Pain control: Desires epidural in active labor -Re-evaluation in 2 hrs or PRN ?? Gestational diabetes (O24.419):? GDMA2 on insulin Lantus: 47u --> 24u?? Lispro 20/20/20 with meals POCs fasting and post-prandial POCs q2h with epidural, q1h in active labor ?? History of placental abruption (Z87.59):? Abruption??suspected in her last based on clots noted on the placenta at time of delivery Cat 1 tracing on admission with no vaginal bleeding ?? Marginal insertion of umbilical cord affecting management of mother (O43.199):??. ?? Plan of care discussed with Dr. Hearn, attending. OB History History?(1,0,3,1)? # 1 ?Baby 1 ?Outcome Date:??2018 ?Outcome or Result:??Vaginal ?Gest Age:??38 weeks 6 days ? Outcome:??Live ? Sex:??Male ?Maternal Complications:??Gestational diabetes ?Child's Name:??Herve ?Hospital:[facility] ?? # 2 ?Baby 1 ?Outcome Date:??2020 ?Outcome or Result:??Spontaneous ?Gest Age:??4 weeks ? Outcome:? Sex:??-- ?? # 3 ?Baby 1 ?Outcome Date:??2021 ?Outcome or Result:??Spontaneous ?Gest Age:??4 weeks ? Outcome:? Sex:??-- ?? # 4 ?Baby 1 ?Outcome Date:??02/2022 ?Outcome or Result:??Spontaneous with D&C ?Gest Age:??12 weeks ? Outcome:? Sex:??-- ?Comment:??She states she was 12 weeks she was told she was only 6 weeks. Labs Labs Labs & Tests Antibody Screen: Negative (05/22/22) Chlamydia Trachomatis Amplified Probe: NEGATIVE (12/03/22) Creatinine-Blood: 0.5 mg/dL (07/03/22) Fibronectin: NEGATIVE (11/18/22) Glucose 3hr Gest Ras, +120 minutes:??171 mg/dL??High (10/12/22) Glucose 3hr Gest Ras, +180 minutes:??156 mg/dL??High (10/12/22) Glucose 3hr Gest Ras, +60 minutes:??208 mg/dL??High (10/12/22) Glucose 50 Gm, +60 Minutes:??141 mg/dL??High (10/03/22) Glucose Tolerance, Fasting:??98 mg/dL??High (10/12/22) Hct:??31.3 %??Low (10/26/22) Hepatitis B Surface Antigen: NEGATIVE (05/22/22) Hepatitis C Ab: NEGATIVE (05/22/22) Hgb:??9.9 Gm/dL??Low (10/26/22) HIV 4th Generation Ab-Ag Result: NEGATIVE (05/22/22) RPR Titer Result: NOT INDICATED (10/26/22) Rubella IgG Ab: POSITIVE (05/22/22) Syphilis Screen by MATT: NEGATIVE (10/26/22) Urine Culture: Urine Culture (12/03/22) Problem List Active Active Problem List Acid reflux: (Medical) Anemia: (Medical) Constipation: (Medical) Frequent headaches: (Medical) Gestational diabetes: (Medical) H/O gestational diabetes in prior , currently : (Medical) 2019 then 3 miscarriages History of placental abruption: (Medical) Increased nuchal translucency space on ultrasound: (Medical) Marginal insertion of umbilical cord affecting management of mother: (Medical) : (Obstetric) (04/06/22) : (Medical) Three previous miscarriages, affecting care of mother in first trimester, antepartum: (Medical) Procedure/Surgical History Vaginal delivery Miscarriage Home Medications Aspirin: See Instructions, 2 tablet By Mouth Daily at bedtime Docusate: 100 mg = 1 capsule, By Mouth, 2 times a day, PRN (as needed for constipation) Doxylamine: 25 mg = 1 tablet, By Mouth, Daily at bedtime, PRN (for sleep) Durable Medical Equipment: See Instructions, glucose monitoring 4 times daily during Durable Medical Equipment: See Instructions, glucose monitoring 4 times daily during Durable Medical Equipment: See Instructions, glucose monitoring 4 times daily during Durable Medical Equipment: See Instructions, glucose monitoring 4 times daily during Famotidine: 20 mg = 1 tablet, By Mouth, 2 times a day, Take twice daily for acid reflux and to helpwith nausea and vomiting. Ferrous Sulfate: 325 mg = 1 tablet, By Mouth, Daily Insulin Glargine: 45 units, Subcutaneous Injection, Daily at bedtime Insulin Glargine: 47 units, Subcutaneous Injection, Daily at bedtime Insulin Lispro: 20 units, Subcutaneous Infusion, 3 times a day before meals Metronidazole Topical: 1 application, Vaginally, Daily, At night Miscellaneous Rx (FREESTYLE LANCETS 100): See Instructions, USE DIRECTED FOUR TIMES DAILY Miscellaneous Rx (FREESTYLE LITE BLOOD GLUCOSE STRIPS): See Instructions, USE DIRECTED FOUR TIMES DAILY Multivitamin, : 1 tablet, By Mouth, Daily Polyethylene Glycol 3350: 17 Gm, By Mouth, Daily, Take daily as needed for constipation Polyethylene Glycol 3350: 17 Gm, By Mouth, Daily, dissolve in water before taking. Use daily until regular bowel movements. Allergies No Known Medication Allergies Social History Alcohol Use: Never. Electronic Cigarette/Vaping Electronic Cigarette Use: Never. Employment/School Status: Employed. Other: [employer]. Exercise Self assessment: Good condition. Other: Stopped gym while . Home/Environment Living situation: Home/Independent. Lives with: Children, Spouse. Other: [employer]. Nutrition/Health Diet: Regular. Sexual Sexually involved in last 6 months: Yes. Gender identity: Identifies as female. Self described orientation: Straight or heterosexual. Substance Abuse Use: Never. Tobacco Use: Never (less than 100 in lifetime). Family History Mother: Negative Father: Negative Plan OB Plan Feeding Plan: Breast milk & Formula (12/19/22) Labor Coping Mechanisms: Epidural (12/19/22) Patient Requests: girl (12/19/22) * Rosemarie Hearn DO: PERFORM Event Display: History and Physical Hospital Authored Date: [id number] Attending Attestation:??I have seen and evaluated this patient. ??I have discussed the case and itsmanagement with the resident and agree with the findings and plan as documented in the resident???snote. ?? Lauro, DO?? Hospital Progress note * Carmen Cruz RN: PERFORM, SIGN, VERIFY Event Display: Progress Note Hospital Authored Date: [id number] Patient: RUDY WILKINS Age: 22 years Sex: Female : 2000 Associated Diagnoses: None Author: Carmen Cruz RN OB stable upon discharge. Incision well approximated. No s/s of infection. Pt educated on warning signs, care, care and need for follow-up for self and . Pt verbalized understanding and all questions were answered. identification bracelets were verified. Pt discharged to home with . placed in car seat by patient prior to leaving. Findings Problem Related to Alteration in Comfort : Alteration in Comfort/new 12/21/2022 14:00 EDT Alteration in Comfort Related to Other: vaginal delivery Goals & Outcomes: Comfort Pt will report acceptable level of comfort & pain control, Pt will state importance of adhering to pain strategy regime, Non- verbal indicators will indicate comfort/pain control Interventions Implemented: Comfort Assess pain using appropriate pain scale/tools Goals/Interventions, Comfort Yes Comfort, Problem Start 12/19/2022 23:00 Reviewed plan with, Comfort Patient Patient Progression, Comfort Resolved problem Comfort, Problem Ongoing Yes Comfort, Problem Resolved 12/21/2022 14:40 . * Alana Wilcox RN: PERFORM, SIGN, VERIFY Event Display: Progress Note Hospital Authored Date: [id number] Patient: RUDY WILKINS Age: 22 years Sex: Female : 2000 Associated Diagnoses: None Author: Alana Wilcox RN Findings Narrative/Incidental Pt alert and oriented x4. VSS overnight. Pain well controlled with PRN meds. Endorses intermittent increasing abd cramping. OB stable. Down 1, firm. Mild lochia noted with no clots observed. +CMS noted to all extremities. Trace edema. Tolerating PO intake without nausea, passing flatus. Denies issues with urination. Ambulating to bathroom and within room with steady gait. Pumping and formula feeding . Bonding appropriately. Safe sleep continuously encouraged. No acute distress noted. Callbell within reach. Plan of care updated.. * Desiree Jarrell RN: PERFORM, SIGN, VERIFY Event Display: Progress Note Hospital Authored Date: [id number] Patient: RUDY WILKINS Age: 22 years Sex: Female : 2000 Associated Diagnoses: None Author: Desiree Jarrell RN Findings Patient doing well. Pain well controlled with Tylenol and Motrin. Lochia is minimal, fundus firm. Patient ambulating to NICU throughout the morning. voiding independently. and bottle feeding, plans to pump as well. EPDS left bedside. plan of care discussed. All needs met Note * Artis Barbosa: PERFORM Event Display: Care Team Progress Note Authored Date: Patient: ??RUDY WILKINS ? Age:??22 Years?Sex:??Female?:??2000?? Subjective Follow up consult for multip and 35w5d now 39hrs.?? Reunited from NICU.?? Baby is being supplemented with 22cal and expressed milk. Assessment/Plan ?? Maternal barriers to : maternal separation barriers to : large amounts of formula, early introduction of artificial nipples, prematurity Feeding Observation: Scheduled with mother to return for feeding, when arrived mother stated she fed baby just before LCarrival.?? Verbally reviewed positioning. ?? Care Plan: ??Breastfeed baby on demand, following their feeding cues, attempting a feeding q2-3 hours Frequent skin to skin helps baby with feeding reflexes and stimulates mother's milk production Adequate diaper output for days of life is a good indication of milk transfer Follow up with if any concerns about output or weight loss ?? Late Pre-Term & Early Term [place] Education:? Higher risk for feeding related issues ? Under developed fat cheek pads leading to less milk removal in early days ? Increased sleepiness?? Parent Resource Sheet given including??supplement recommendations via ABM protocol ? Day 1: Hand express and spoon feed 5-10 mL? Day 2-4: Hand express/pump 10-15 mL using spoon/bottle or cup with provider guidance ? Day 4 and on: Pump 10-30 mL using bottle or cup with provider guidance ?*These measurements are to supplement when a latch is not achieved and can be added to the end of??feed during slow weight gain ?? Education Given:?? Frequent breast stimulation for initiation and maintenance of milk supply ?Stimulation and Milk Supply Education ? Breast milk supply is created in the first two weeks ? Stimulate every 2-3 hours for optimal supply ? Don't go longer than 4 hours without stimulation ? Stimulation includes hand expression, latching or pumping ? Hormones release with initial touch, therefore frequent touch is supportive ? Coming to full milk volume in first 14 days Engorgement prevention and management ? Between day 3-5 milk volume will dramatically increase as milk transitions from colostrum to mature milk.? Frequent milk removal by latching baby or pumping--do not overstimulate breasts by pumping after feeding unless instructed to do so by ? Discomfort can be managed with cool compresses and/or ice on breasts after feeding ? If engorgement remains painful call When to use a breast pump Information on how to obtain a breast pump [place] Expectations ?1-2 feeds/1??void?in first 24 hours, ? 8-10 feeds/ 4 voids/2-3 stool by day 4 when milk arrives, ? Feeds are not routine but balance out over 24 hours.? Sleepy behavior during the day ? Frustrated and cluster feeding throughout the night ?? Consultation reference guide given to mother with contact information for services and ongoing support as needed.? OB Summary : 5 Parity: 1 . Baby A - Weight: 3.151 kg Baby A - Date, Time of : 12/19/22 17:25:00 Baby A - Date, Time of : 12/19/22 14:25:00 Baby A - Gender: Female Baby A - Gender: Female Baby A - Complications: None Baby A - Complications: None EGA at Documented Date, Time: 35W 5D Weight at Delivery Baby A - Delivery Type: Vaginal Baby A - Delivery Type: Vaginal Delivery Complications: None OB History History?(1,0,3,1)? # 1 ?Baby 1 ?Outcome Date:??2018 ?Outcome or Result:??Vaginal ?Gest Age:??38 weeks 6 days ? Outcome:??Live ? Sex:??Male ?Maternal Complications:??Gestational diabetes ?Child's Name:??Herve ?Hospital:[facility] ?? # 2 ?Baby 1 ?Outcome Date:??2020 ?Outcome or Result:??Spontaneous ?Gest Age:??4 weeks ? Outcome:? Sex:??-- ?? # 3 ?Baby 1 ?Outcome Date:??2021 ?Outcome or Result:??Spontaneous ?Gest Age:??4 weeks ? Outcome:? Sex:??-- ?? # 4 ?Baby 1 ?Outcome Date:??02/2022 ?Outcome or Result:??Spontaneous with D&C ?Gest Age:??12 weeks ? Outcome:? Sex:??-- ?Comment:??She states she was 12 weeks she was told she was only 6 weeks. 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, antepartum: (Medical) Home Medications Acetaminophen: 975 mg = 3 tablet, By Mouth, Every 8 hours Aspirin: See Instructions, 2 tablet By Mouth Daily at bedtime Docusate: 100 mg = 1 capsule, By Mouth, 2 times a day, PRN (as needed for constipation) Doxylamine: 25 mg = 1 tablet, By Mouth, Daily at bedtime, PRN (for sleep) Durable Medical Equipment: See Instructions, glucose monitoring 4 times daily during Durable Medical Equipment: See Instructions, glucose monitoring 4 times daily during Famotidine: 20 mg = 1 tablet, By Mouth, 2 times a day, Take twice daily for acid reflux and to helpwith nausea and vomiting. Ibuprofen: 600 mg = 1 tablet, By Mouth, Every 6 hours Multivitamin, : 1 tablet, By Mouth, Daily Polyethylene Glycol 3350: 17 Gm, By Mouth, Daily, Take daily as needed for constipation Polyethylene Glycol 3350: 17 Gm, By Mouth, Daily, dissolve in water before taking. Use daily until regular bowel movements. Polyethylene Glycol 3350: 17 Gm, By Mouth, Daily, dissolve in water before taking Simethicone: 180 mg = 1 capsule, By Mouth, 4 times a day Medications Medications (4) Active SCHEDULED: (1) Multivitamin Tablet ??1 tablet, By Mouth, Daily CONTINUOUS: (0) PRN: (3) Acetaminophen 325 mg Tablet (Acetaminophen Tablet) ??650 mg, By Mouth, Every 4 hours Docusate Sodium 100 mg Capsule (Docusate Sodium Capsule) ??100 mg 1 capsule, By Mouth, 2 times a day Ibuprofen 800 mg Tablet (Ibuprofen Tablet) ??800 mg, By Mouth, Every 8 hours * Carmen Cruz RN: PERFORM Event Display: Discharge/Transfer Note Hospital Authored Date: [id number] Nursing Discharge Note Entered On: 12/21/2022 14:44 EDT Performed On: 12/21/2022 14:43 EDT by Carmen Cruz RN Nursing Discharge Note 2 Discharge Time : 12/21/2022 14:40 EDT Discharge Level of Care at Discharge : Home/Usp/Foster Care Patient Left Unit Via : Ambulatory Patient Accompanied Off Unit with : Significant other DC Instructions Provided & Signed by Pt : Yes Patient Understands D/C Instructions : Yes Patient Instructions Discharge Signed : Yes Did Pt have Specialty Bed or Wound Vac : No Carmen Cruz RN - 12/21/2022 14:43 EDT * Luz Bills DO: PERFORM Event Display: Discharge/Transfer Note Hospital Authored Date: [id number] Patient: ??RUDY WILKINS ? Age:??22 Years?Sex:??Female?:??2000?? Admit Date Admission Date: 12/19/2022 Discharge Date 12/21/2022 OB Reason for Admission OB Reason for Admission Reason for admission: labor [facility] Hospital Course 22 yo @35w5d admitted for labor. GBS unknown. Rh positive. Rubella immune. Patient proceeded to on 12/19 of female with first degree repair. course was uncomplicated. ?? Patient would like to be discharged today.??On day of discharge, patient is resting comfortably and feeling well. States her pain is well controlled with PO pain meds. Her lochia is like a medium period. She is ambulating, voiding spontaneously, and tolerating regular diet. Has passed flatus. Bonding with baby appropriately. ?? Denies fevers, chills, headache, dizziness, vision changes, chest pain, shortness of breath, RUQ pain, nausea, vomiting, and calf tenderness. ?? Discussed self care, and depression. Patient was counseled on warning signs for calling or returning to care including but not limited to fever of 100.4 or greater, heavy vaginal bleeding, foul-smelling vaginal discharge, difficulty or burning with urination, nausea and vomiting with inability to tolerate food, pain not controlled by medications, shortness of breath or chest pain, and depression. Counseled to place nothing in the vagina in the next 4-6wks. Patient verbalized understanding. Objective/Physical Exam on Day of Discharge Vitals & Measurements T:??98.4?F?? HR:??67??(Peripheral)?? RR:??18?? BP:??117/68?? SpO2:??100%?? HT:??168??cm?? WT:??91.8??kg?? BMI:??32.53?? General: Awake, alert HEENT: Within normal limits Breast: Not engorged, nipples intact and everted CV: RRR, no murmurs, rubs or gallops Lung: CTAB, no wheezes, crackles, or rhonchi Abdomen: Fundus is firm??@ umbilicus -2 Perineum: 1st degree laceration well approximated, no erythema, no edema Ext: No edema of bilateral lower ext. Assessment/Plan/Discharge Diagnosis Assessment:??Patient is a 22 yo G5 now P2 s/p on 12/19 with first degree repair. Pain well controlled with prn ibuprofen/tylenol. control is OCPs. The patient is meeting appropriate milestones. ?? state (Z39.2):? - Continue routine care - Diet: Regular - Pain control: Ibuprofen & Tylenol - Encourage ambulation - Expected discharge PPD2 - PPBC: OCPs - Feeding plan: Pumping and bottle feeding ?? Gestational diabetes (O24.419):? - In : GDMA2 on insulin - ( ) 2hr GTT in 6 weeks ?? Elevated BP without diagnosis of hypertension (R03.0):? - Will continue to monitor Care: Screening for diabetes Delivery Summary Delivery Summary Maternal Information ??Labor Information ?Baby A ?Labor Onset Methods: ??Spontaneous ??Delivery Information ?Gestational Age at Delivery: ??35W 5D ?Anesthesia OB: ??Epidural ??12/19/22 08:40:32 ?Obstetrical Laceration: ??Perineal laceration ?Perineal Laceration: ??Midline, 1st degree ?Perineal Laceration Repair: ??Vicryl suture ?Anesthesia for Repair: ??Epidural ?Delivery Complications: ??None ?Blood Loss - Quantitative: ??300 mL ? Baby A ??Delivery Information ?Delivery Type: ??Vaginal ?Date, Time of : ??12/19/22 17:25:00 ? Position: ??Supine ?Foot of bed removed: ??No ?Delayed Cord Clamping: ??Yes ?Placenta Delivery Date/Time: ??12/19/22 17:29:00 ?Placenta Delivery Method: ??Assisted ?Placenta Appearance: ??Marginal cord insertion ?Placenta to Pathology: ??No ??Care Team ?Attending Provider: ??James Morelos MD ?Delivery Physician: ??Negar KAPOOR, Luz ?residential treatment staff #1: ??Dolores Moreno RN ?residential treatment staff #2: ??Liseth Quigley RN ?A[employer]: ??Obed KAPOOR, Jeffrey Paz ?Anesthesiology Attending: ??James Morelos MD ?Time NICU Team Called: ??12/19/22 17:19:00 ??Labor Information ? monitoring: ??External monitor ?? Information ? Outcome: ??Live ? Position: ??Right occiput anterior ? Weight: ??3.151 kg ? Score 1 minute: ??8 ? Score 5 minute: ??9 ? Score 10 minute: ??9 ?Transferred To: ?? Care area with Family ?Umbilical Cord Description: ??3 vessel cord, Nuchal cord ?Nuchal cord times: ??1 ?Nuchal cord tension: ??Loose ?Nuchal cord Intervention: ??Somersault maneuver ? Complications: ??None ?Gender: ??Female ? Procedures Performed Vaginal delivery ? Discharge Medications ???Acetaminophen (Tylenol 325 mg oral tablet)???Aspirin (aspirin 81 mg oral delayed release tablet)???Docusate (docusate sodium 100 mg oral capsule)???Doxylamine (Unisom 25 mg oral tablet)???Durable Medical Equipment (Alcohol Wipes)???Durable Medical Equipment (Freestyle Lite Lancets)???Famotidine (famotidine 20 mg oral tablet)???Ibuprofen (ibuprofen 600 mg oral tablet)???Multivitamin, ( Multivitamins with Folic Acid 1 mg oral tablet)???Polyethylene Glycol 3350 (MiraLax oral powder for reconstitution)???Polyethylene Glycol 3350 (MiraLax oral powder for reconstitution)???Polyethylene Glycol 3350 (MiraLax oral powder for reconstitution)???Simethicone (simethicone 180 mg oral capsule) Stop taking these medications ???Ferrous Sulfate (ferrous sulfate 325 mg oral tablet)???Insulin Glargine (Lantus Solostar Pen 100 units/mL subcutaneous solution)???Insulin Glargine (Lantus Solostar Pen 100 units/mL subcutaneous solution)???Insulin Lispro (Insulin Lispro KwikPen 100 units/mL injectable solution)???Metronidazole Topical (metroNIDAZOLE 0.75% topical gel)???Miscellaneous Rx (FREESTYLE LANCETS 100)???Miscellaneous Rx (FREESTYLE LITE BLOOD GLUCOSE STRIPS) Immunizations during Hospitalization Vaccine Date Status tetanus/diphtheria/pertussis, acel(Tdap) 10/26/2022 Given Contraception Combined oral contraceptive device [pill/patch/ring] ? Infant Feeding Method No Results Patient Instructions Congratulations on your baby! ?? Discharge: home, Call your the office with any concerns including:?? Heavy vaginal bleeding?? Fever of 100.4 or greater Foul-smelling vaginal discharge Difficulty or burning with urination?? Nausea and vomiting with inability to tolerate food,?? Pain not controlled by your prescribed medications Shortness of breath or chest pain. Swelling of the extremities. ?? General Instructions: - Avoid lifting anything 15 lbs or greater until cleared by doctor. - Stairs are OK but avoid multiple trips/ skipping steps and go slowly. - Walk as often as you are able. - Do not put anything in the vagina. No intercourse, tampons, or douching - Continue your stool softeners (examples: colace/docusate, senna, miralax) - Shower as usual. Avoid tubs/ soaking/ pools. ?? Thank you for allowing us to be part of your care team. * Ariana LINN, Colby Jacobs: PERFORM Event Display: Discharge/Transfer Note Hospital Authored Date: I saw the above patient and reviewed the findings and plan with the resident. Agree with assessmentand plan. K Ariana LINN * Anthony RICE, Carmen: PERFORM Event Display: Patient Education/Instruction Authored Date: Inpatient Adult Discharge Instructions [place] [id number] Name: RUDY ORDAZ : 2000 Visit: 12/19/2022 03:09:00 Current Date: 12/21/2022 11:51 Account: [id number] Inpatient Adult Discharge Instructions We would like to thank you for allowing us to assist you with your healthcare needs. The following includes patient education materials and information regarding your injury/illness. Our entire staffstrives to provide an excellent experience for our patients and their families. PLEASE ENSURE YOU FOLLOW-UP PER THE INSTRUCTIONS BELOW! ?? YOUR OPINION IS IMPORTANT TO US! Please complete the survey you may receive by mail or email. Your feedback will be used to make improvements to the healthcare experiences of our patients and their families. Surveys are administered by [employer] ?? If further treatment with your primary care physician or another doctor is recommended, it is important for you to keep the appointment. Call your primary care physician or return to the Emergency Department immediately if your condition worsens, fails to improve, or new symptoms develop. If you need to find a doctor, you can call [facility] [employer] [facility] for a referral at [phone] or toll free at [phone] or log in to [email or web address].. ?? You can view and manage your care through the patient portal or by using a health care [facility] of your choosing. [employer] is a website that allows you to securely view your medical information including your hospital discharge summary, office visit summaries, medications and follow-up visits. You can also request appointments, renew medications, and request access to your medical information using a health care [facility] of your choosing, or just ask a question. You can enroll at [email or web address] or register during your next office visit. You have been discharged from [facility], Patient Care Unit: WIN2. If you have any questions regarding these instructions after you leave, please call us and we will be happy to assist you. [facility] Your Care Team Attending Physician Rosemarie Hearn DO Discharging Providers Luz Bills DO Reason for Admission labor Your Diagnosis Gestational diabetes labor Marginal insertion of umbilical cord affecting management of mother History of placental abruption state Elevated BP without diagnosis of hypertension Tests Performed Below is a partial list of the tests performed during your hospitalization. You may have had other tests and procedures not included in this list. Please discuss all test results with your provider. CBC GLUCOSE POC Type and Screen Primary Care Provider Not on Staff, PCP Advance Directive Health Care Proxy on File Yes - Health Care Proxy Discharge Vitals Temperature: 98.1 DegF Height: 168 cm Pulse Rate: 68 bpm Weight: 91.8 kg Respiratory Rate: 18 br/min Body Mass Index:??32.53 kg/m2??Critical Systolic Blood Pressure: 118 mm Hg Body surface area: 2.07 Diastolic Blood Pressure: 77 mm Hg ?? Oxygen Saturation: 97 % ?? Studies Pending All tests and labs ordered during this hospital stay have been completed unless listed below. Please discuss all pending results with your provider listed above in these instructions. ?? No incomplete studies found What to do next Instructions From Your Doctor Congratulations on your baby! ?? Discharge: home, Call your the office with any concerns including:?? Heavy vaginal bleeding?? Fever of 100.4 or greater Foul-smelling vaginal discharge Difficulty or burning with urination?? Nausea and vomiting with inability to tolerate food,?? Pain not controlled by your prescribed medications Shortness of breath or chest pain. Swelling of the extremities. ?? General Instructions: - Avoid lifting anything 15 lbs or greater until cleared by doctor. - Stairs are OK but avoid multiple trips/ skipping steps and go slowly. - Walk as often as you are able. - Do not put anything in the vagina. No intercourse, tampons, or douching - Continue your stool softeners (examples: colace/docusate, senna, miralax) - Shower as usual. Avoid tubs/ soaking/ pools. ?? Thank you for allowing us to be part of your care team. Discharge Orders Scheduled Follow-Up Appointments Saturday 1:40 PM EDT ?? Where: [facility] - Shutdown Coordinator [address] [place] [id number] Status: Pending You Need to Schedule the Following Appointments Follow Up with??Please follow up with [facility] pediatricians on 12/24/22 at 10:00am Discharge Medications RUDY WILKINS :2000 Visit Date:12/19/2022 Medications: Please continue your medications until treatment is completed or stopped by your provider. Medications not listed below should be discontinued. Discuss any questions related to medications with your provider. What How Much When Why Instructions Next Dose New Acetaminophen (Tylenol 325 mg oral tablet) 3 tab(s) Oral Every 8 hours Pickup at [facility] #[id number] 5:00pm New Ibuprofen (ibuprofen 600 mg oral tablet) 1 tab(s) Oral Every 6 hours Pickup at [facility] #24768 3:00pm New Simethicone (simethicone 180 mg oral capsule) 1 capsule Oral 4 times a day Pickup at [facility] #[id number] Changed Durable Medical Equipment (Alcohol Wipes) See instructions glucose monitoring 4 times daily during ?? Changed Durable Medical Equipment (Freestyle Lite Lancets) See instructions glucose monitoring 4 times daily during ?? Changed Polyethylene Glycol 3350 (MiraLax oral powder for reconstitution) 17 gram Oral Daily dissolve in water before taking ?? Pickup at [facility] #[id number] Changed Polyethylene Glycol 3350 (MiraLax oral powder for reconstitution) 17 gram Oral Daily Take daily as needed for constipation ?? Changed Polyethylene Glycol 3350 (MiraLax oral powder for reconstitution) 17 gram Oral Daily dissolve in water before taking. Use daily until regular bowel movements. ?? Unchanged Aspirin (aspirin 81 mg oral delayed release tablet) See instructions History of gestational diabetes 2 tablet By Mouth Daily at bedtime ?? Unchanged Docusate (docusate sodium 100 mg oral capsule) 1 capsule Oral Twice a day as needed for as needed for constipation Unchanged Doxylamine (Unisom 25 mg oral tablet) 1 tab(s) Oral Daily at Bedtime as needed for for sleep Unchanged Famotidine (famotidine 20 mg oral tablet) 1 tab(s) Oral Twice a day Take twice daily for acid reflux and to help with nausea and vomiting. ?? Unchanged Multivitamin, ( Multivitamins with Folic Acid 1 mg oral tablet) 1 tab(s) Oral Daily Pharmacy Information [facility] #[id number]: [address] [place] [address] [phone] ?? What How Much When Why Comments Stop Taking Ferrous Sulfate (ferrous sulfate 325 mg oral tablet) 1 tab(s) Oral Daily Stop Taking Insulin Glargine (Lantus Solostar Pen 100 units/ mL subcutaneous solution) 47 unit(s) Subcutaneous Injection Daily at Bedtime Gestational diabetes Stop Taking Insulin Glargine (Lantus Solostar Pen 100 units/ mL subcutaneous solution) 45 unit(s) Subcutaneous Injection Daily at Bedtime Stop Taking Insulin Lispro (Insulin Lispro KwikPen 100 units/ mL injectable solution) 20 unit(s) Subcutaneous Infusion 3 times a day before meals Gestational diabetes Stop Taking Metronidazole Topical (metroNIDAZOLE 0.75% topical gel) 1 quin[facility] Vaginally Daily Duration: 5 Days At night ?? Stop Taking Miscellaneous Rx (FREESTYLE LANCETS 100) See instructions USE DIRECTED FOUR TIMES DAILY ?? Stop Taking Miscellaneous Rx (FREESTYLE LITE BLOOD GLUCOSE STRIPS) See instructions USE DIRECTED FOUR TIMES DAILY ?? Test Results Below is a partial list of the most recent Laboratory test results done prior to this discharge. You may have had other tests and procedures not included in this list. Please discuss all test resultswith your provider. Antibody Identification 1 - Inconclusive Wkup use SP XMs (12/19/2022) CBC (12/19/2022) ???WBC - 8.8 k/mm3???RBC - 4.29 m/mm3???Hgb - 9.8 Gm/dL???Hct - 32.9 %???MCV - 76.7 femtoliters???MCH - 22.8 pg???MCHC - 29.8 g/dL???Platelet Count - 262 k/mm3???RDW-SD - 44.9 femtoliters???MPV - 10.2 femtoliters???Nucleated RBC (Automated) - 0.0 #/100 WBC'S???Abs. NRBC - 0.0 k/mm3 GLUCOSE POC (12/19/2022) ???Glucose, POC - 75 mg/dL Type and Screen (12/19/2022) ???Blood Type - AB Positive???Antibody Screen - Positive Allergies (NKA means No Known Allergies) No Known Medication Allergies Problems Active Problems??(12) Acid reflux?? Anemia?? Constipation?? Frequent headaches?? Gestational diabetes?? H/O gestational diabetes in prior , currently ?? History of placental abruption?? Increased nuchal translucency space on ultrasound?? Marginal insertion of umbilical cord affecting management of mother? 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 Education Materials Below is the list of Educational Leaflet Providered with your Discharge Instructions. OB [facility]- Discharge Instructions?? Valuables and Belongings I fully understand and agree that [facility] accepts no responsibility for all my personal property including clothing, toilet articles, radios, jewelry, dentures, hearing aids, rings, money, or any other property that is in my possession or is brought to me after admission. I understand certain valuables may be placed in a hospital safe for a short period of time. I understand that the hospital is not liable for loss or damage due to accident, fire, or other natural occurrence while said property is in the safe. I accept full responsibility for any personal property that I keep with me, and will not hold the hospital responsible in case of loss or disappearance. I acknowledge that i have been encouraged to send valuables and belongings home. ?? Disposition of Belongings: Sent home with patient/family Date for Pt to Sign Valuables/Belongings: 12/21/22 09:09:00 ?? Other Discharge Information ? Pulmonary Rehab Status?? Pulmonary Rehab Discharge Status?? Respiratory Rate: 18 br/min ? Common Emergency Awareness Tips IS IT A STROKE? Act FAST and Check for these signs: FACE Does the face look uneven? ARM Does one arm drift down? SPEECH Does their speech sound strange? TIME Call at any sign of stroke ?? Heart Attack Signs Chest discomfort: Most heart attacks involve discomfort in the center of the chest and lasts more than a few minutes, or goes away and comes back. It can feel like uncomfortable pressure, squeezing, fullness or pain. Discomfort in upper body: Symptoms can include pain or discomfort in one or both arms, back, neck, jaw or stomach. Shortness of breath: With or without discomfort. Other signs: Breaking out in a cold sweat, nausea, or lightheaded. Remember, MINUTES DO MATTER. If you experience any of these heart attack warning signs, call to get immediate medical attention! ?? Smoking can increase your chances of developing chronic health problems and can cause harmful effects to other family members in your house. If you smoke, you are strongly encouraged to quit. Please call [facility] [employer] Link at [phone] or [phone] ([phone]) or log in to [email or web address] for referrals to smoking cessation programs. ?? 170 Suicide & Crisis Lifeline is available 26/11 if you or someone you know needs to find a reason to keep living. By calling 053 you'll be connected to a skilled, trained counselor at a crisis center in your area. INPATIENT DISCHARGE INSTRUCTIONS SIGNATURE PAGE RUDY WILKINS Location:[facility] Registration Date and Time:12/19/2022 03:09 EDT Primary Care Physician: Not on Staff, PCP Attending Physician: Rosemarie Hearn DO, I RUDY WILKINS, have received the above patient education materials/instructions and have verbalized understanding. If ambulance or transport services are being used I further acknowledge beinggiven a choice of service. ?? If you need to contact me, please call me at this number: . Patient/Coiler Operator Name: Patient/Coiler Operator Signature: Relationship to Patient: Witness Name/Signature: Date: * Carmen Cruz RN: PERFORM, SIGN, VERIFY Event Display: Patient Education Handout Authored Date: [id number] * Carmen Cruz RN: PERFORM Event Display: Patient Education Leaflets Authored Date: [id number] OB PP [facility]- Discharge Instructions ?? 209 Discharge Care Instructions for the New Mom and Baby Please take a few moments to read through these helpful instructions before you leave the hospital.?? Your nurse will be glad to answer any questions you may have.?? You can also find this and more information throughout the purple Becoming a Family booklet, [facility]???s New Beginnings Guide and the Consultation Services Guide given to you after the of your baby.?? You may also phone our nurses stations if you have further questions.?? [facility]:?? First Floor ([phone]), Second Floor ([phone]).?? Please call your provider if you have any questions or concerns?? before your next appointment. For ongoing support please ???Like?? us on our Facebook page ???[facility]???s New Beginnings?? andsign up for our email newsletter at [email or web address].?? News and information will besent to you until your baby???s third birthday. Instructions for the New Mother Activity: For the next 2 weeks at home ??? no heavy lifting, avoid unnecessary stair climbing, and no driving(especially if you are taking medicine that may make you sleepy or feel that you are sleep deprived).?? For the next 4-6 weeks - no tampons, no douches, no sexual intercourse. Use your maya bottle to rinse your perineum until your vaginal flow stops.?? If you have stitches in your bottom, they generally dissolve within 7-10 days.?? Apply Tucks/witch julia pads until your soreness subsides.?? Use your bathroom at home every 3 to 4 hours, rinse, and change your pads. Warm showers feel great on achy muscles, sore backs and sore bottoms. Exercise: Walking is the best form of exercise.?? Wait until your follow up appointment with your provider in4-6 weeks before engaging in more strenuous activity. Diet: Drink plenty of fluids to avoid constipation and to help support your recovery. Eat plenty of iron rich foods such as red meat, iron fortified cereals like Total and Cream of Wheat, raisins, prunes, greens and spinach.?? These will help to build your blood count back up as all women lose some blood after delivery.?? Also add foods rich in Vitamin C such as strawberries, oranges, papayas, kale and kraus peppers. Continue to take your vitamins if you are .?? If you are not follow the instructions of your provider.?? If you were prescribed iron supplements such as ferrous sulfate, it is important to continue these until your doctor or machine heddle cleaner tells you to stop. Breast Care for Nursing Mothers: Wear a comfortable fitting, supportive nursing bra.?? An underwire bra is not recommended. Express drops of breast milk and rub over your nipples and areola (brown area) before and after each feeding to protect and heal sensitive skin and then air dry your nipples.?? If you are experiencing any soreness, you may purchase nipple cream such as TenderCare or Lansinoh.?? Use it in the following manner:?? finish your feeding or pumping session, self-express colostrum onto your nipple and air dry, apply the nipple cream to the nipple and areola.?? Use only small amounts for best results. If you are having difficulty getting the baby to latch onto the breast due to swelling of the areola, try applying pressure with your fingers for a couple of minutes above and below your nipple and walk your fingers outward softening the area and pushing the swelling away.?? This technique is knownas reverse pressure softening.?? For demonstrations of this and other techniques such as the [place] Hand Expression technique, please refer to the resources section of the Consultation Services Guide that you received from services. When your milk first comes in, usually within 3 to 5 days after delivery, you may experience engorgement.?? Your breasts may become swollen and very tender.?? Cold compresses work great to help with discomfort and reduce swelling. It will get better in a couple of days.?? Continue to nurse your baby frequently.?? Call [facility]???s Consultation Service at [phone], press 1 to schedule an outpatient appointment or press 3 and a method consultant will return your call that day or the next if you call after 3pm. Breast Care for Bottle Feeding Mothers: Engorgement may occur within the first week after delivery.?? Your breasts may become hard and verytender.?? A cool compress of cleaned raw green cabbage leaves applied to the breast and changed as leaves wilt has been proven helpful for many women.?? Ice packs or frozen bags of peas also work nicely to ease the discomfort.?? The soreness will only last a couple of days. Keep your back turned to the water while showering to decrease breast stimulation. Wear a snug fitting bra such as a sports bra. Incision Care Following Tubal or Section: You may shower as directed by your doctor or machine heddle cleaner.?? Pat your incision dry with a clean towel.??You will not need a bandage after the first day. Call your doctor or machine heddle cleaner with any signs of infection such as a hard, hot swollen tender incision, especially if the skin around the incision looks pink or red.?? Yellow drainage with an odor may also be a sign of infection to report. Call your doctor or machine heddle cleaner if the incision begins to separate. If you have steri-strips on the incision, they will likely fall off in the first week.?? If they have not fallen off by 10 days after delivery, you may remove them. Control: Your doctor or machine heddle cleaner will discuss control methods with you when [facility] or at your checkup.?? Be sure to let your provider know if you are . You had a Paragard IUD placed on .?? This control method is effective for 10 years. You had a Liletta placed on .?? This control method is effective for up to 5 years. You had a Nexplanon placed on .?? This control method is effective for up to 3 years. You received a Depo Provera injection on .?? This control method is effective as longas you repeat it every 3 months.?? Schedule your next dose before . You have a prescription for control pills .?? It is important to take a pill everyday at around the same time of day for effective control protection.?? Pain Management: Cramping after is common and increases in strength with each baby you have.?? If you experience painful cramps, and have no allergies to acetaminophen (Tylenol) or ibuprofen (Motrin), you may continue to take these medications as you did in the hospital.?? Ibuprofen is also helpful with back aches following epidurals, perineal pain following a vaginal delivery, and moderate incisional pain after a section or a tubal ligation.?? If you experience gas distention, especially after surgery, you may take an over the counter medication called simethicone.?? Take these chewable tablets 4 times a day as needed and directed on the package.?? Keep moving.?? Walking or rocking in a chair, will help to move the gas along.?? Bryce tea made with heated bryce jennifer (instead of water) and a tea bag, stirred to dissolve carbonation (bubbles) is a helpful drink to soothe a gassy stomach. Warning Signs of a Problem to Notify Your Doctor or Pick Pulling Machine Operator of: Heavy vaginal bleeding ??? which is soaking a pad every hour with bright red blood. Passing blood clots the size of an egg or larger. An incision that is not healing. A temperature greater than or equal to 100.4 especially if accompanied by any of the following symptoms ??? painful, frequent urination; extreme back or flank pain; lower belly pain with a foul smellto your vaginal flow; a red hard hot area on your breast.?? Severe headache that does not go away after taking acetaminophen or ibuprofen.?? A headache that changes your vision, including seeing spots or blurring. Right sided upper abdominal pain along the rib cage area. Pain in your legs that is warm and tender to the touch. depression signs may include ??? loss of interest in your baby, weepiness, difficulty focusing, weight loss with no appetite, exhaustion, feeling overwhelmed or anxious, feelings of despair, or thoughts of harming yourself or your baby.?? These symptoms are important and should be discussed with your doctor or machine heddle cleaner. depression may develop over a period of time and needs prompt medical attention.?? Do not suffer in silence.?? In both the Becoming a Family booklet and [facility] Guide there is a screening tool used to identify women at risk, called the George Scale which you have taken in the office prior to delivery and again during your hospital s [place].?? Three to four weeks after your delivery, and before your check with your provider, take this test and share your results with your provider.?? Be sure to mention any score of 10 or more.?? Many women, and even some partners, may experience the ???baby blues?? .?? This is a state of feeling overwhelmed and weepy.?? Discomfort from childbirth, hormonal changes, exhaustion, changes to your body and lifestyle are a few of the things that contribute to the highs and lows new parents go through.?? Don???t be afraid to ask your partner or family and friends for some help at home so you can get some rest and a few minutes to yourself.?? The blues will quickly pass. Personal Safety: Every person has the right to feel safe at home and live free from physical or emotional harm.?? Ifyou have suffered mental or physical abuse at home, you are not alone.?? There is help.?? Please call [employer] or the [employer] [facility] at [phone]. CARE Bathing: Give your baby a sponge bath until the cord falls off in about 1-3 weeks.?? It is not necessary to bathe your baby every day, usually every few days is sufficient. ??Keep the cord area dry.?? Some baby girls will have a small bloody vaginal discharge. No need to worry as this is normal. It is not necessary to use lotions on the baby???s skin.?? Powders and oils are not recommended.?? Babies often get rash on their skin which comes and goes quickly and does not require any special care.?? Diaper rash can be treated with a zinc oxide preparation such as Desitin or Balmex diaper cream. Circumcision Care: Your nurse will teach you how to care for your baby???s circumcision depending on the type of circumcision your doctor or machine heddle cleaner performed.?? Most circumcisions require A&D ointment for about 4-5 days.?? Be generous with the amount of A&D used as this will prevent the diaper from sticking when you go to change it. If a plastibell circumcision was done, the plastic ring around the penis will fall off in a week orso. Diapers: After the 1st??few days, the baby will start wetting more often.?? A breast fed baby will wet about6-8 times a day once mom???s milk comes in ??? usually day 4 or 5.?? This is a good sign that the baby is getting plenty to eat.?? You may notice an orangey-pink stain in the diaper which is normal for the first few days. The baby???s first bowel movements are sticky, black and tarry.?? As the baby starts to feed more often over the next couple of days, the stool will change to a seedy yellowish green color and eventually a loose mustard like stool for a breast fed baby and a more formed yellow stool for a bottle fed baby. your Baby: ??Congratulations on deciding to breastfeed your baby! You are providing your baby with the most nourishing food source on the planet, your breast milk.?? Cues such as rooting, suckling, licking and fussing may be telling you that your baby is ready to eat ??? and it is time to offer your breasts. The first weeks following the are a time for you and your baby to learn.?? The baby may be sleepy the first day after with 8 to 12 attempts ??? including 2 to 4 good feedings.?? Over the next couple of days the baby will become more wakeful, feed 8 to 12 times a day and have more wet and poopy diapers.?? Cluster feeding, especially during the evening/night time, is normal. ?? Listen for swallowing sounds and watch the baby as they become more relaxed at the breast ??? both good signs that the baby is getting a good amount of milk.?? Refrain from smoking or eating edible marijuana while you are . Even though marijuana is legal in the state of [place],??it is harmful for your baby.??It stays in breast milk for along period of time and THC can be found in the baby's urine for up to 3 weeks. Second hand smoke can also increase the risk??of Sudden Infant Syndrome / SIDS. ?? Nursing is wonderful but many moms and babies have some degree of difficulty with at first. Don???t give up!?? There are many resources available to help you overcome these temporary problems. Your dye house wheel operator wants to hear from you if you are having difficulties and can offermany helpful suggestions.?? Some offices have consultants on staff. [facility]???s Consultation Service is available 7 days a week, 8am to 3pm at [phone].?? Press 1 to schedule an outpatient appointment.?? Press 3 to leave a message for the sap business objects consultant, a method consultant will return your call that day or the next if you call after 3pm. Support Groups ??? [facility] offers free gatherings for moms and babies weekly.?? All groups meet at the [facility]???s 2nd??floor, typically in the [facility] Conference Room, Saturday???s 1 to 2 pm.?? [employer] is a worldwide organization with local community support, mother to mother support.?? Information can be found at https://www.lllusa.org Formula Feeding your Baby: Formula fed babies should eat every 3 to 4 hours.?? Look for cues that your baby is ready ??? such as rooting and sucking, licking and fussing.?? At the baby???s stomach is small and may take 10-15ml of formula.?? Over the next few days the baby will become more wakeful and feed more frequently, gradually increasing the amounts of formula taken at a feeding.?? Your dye house wheel operator will provideinstructions on how to increase the amount.?? Refer to packaging for formula preparation directions, depending on the type of formula you purchase ??? powder, concentrate or ready to feed. Infant Safety: ALWAYS REMEMBER - BACK TO SLEEP! Babies sleep safest on their backs.?? Every sleep.?? Every time.?? Every nap. Babies need a firm sleep surface with a tight fitting bottom sheet.?? NO loose bedding.?? NO pillows.?? NO bumper pads or rolls.?? NO heavy or fluffy blankets. NO stuffed toys. It is not safe for your baby to sleep in your bed, in a chair, or on a sofa.?? Your baby should notsleep with you or anyone else. Car Seat: Always place your baby in a rear facing car seat in the backseat of the car. Car seat inserts that come with the car seat can be used as they are crash tested with the seat.?? You should not buy additional inserts.?? Dress the baby in a weather appropriate outfit.?? Avoid bulky clothing such as snowsuits or jackets as the baby may squirm in the seat, loosening the shoulder straps and come out of the top of the harness if you need to brake hard or are in an accident.?? Once the baby issecured in the seat you can cover your little one with a blanket if needed.?? If your baby was bornprematurely, follow the directions given to you.?? If you have not already done so, check to make sure your car seat is installed correctly. Check with your local Fire and Police Department to see if they offer car seat inspections at a location close to you. Babies Can Move: ?? Never leave your baby unattended on any surface, raised or flat, or while bathing.?? They can squirm, fall or hurt themselves.?? Always fasten the safety belt when using an infantseat or swing ??? as they may lean forward and fall. Good Handwashing is the number one way you can protect the baby from too?? many germs and prevent infection.?? When family and friends visit ask that they wash their hands before holding your baby.??Also avoid crowds the first month of your baby???s life to protect from colds and flus. Shaking a baby out of frustration can cause severe and lasting damage, even to a baby.?? If you feel you are becoming angry or overwhelmed, place the baby in a safe place and walk away.?? Call a friend or family member.?? If they are not able to offer immediate help call the Parental Stress Hotline at?? , an anonymous 26/11 source of help. Warning Signs to notify your dye house wheel operator of: Most babies develop a small amount of jaundice (a yellowish skin color) in the face and upper chest, by about 3 days of age.?? If the yellow color extends below the baby???s belly or if the baby is very sleepy and not feeding well, call your dye house wheel operator. A rectal temperature of 100.4F as it could be a sign of infection. Projectile vomiting that continues with each feeding could indicate reflux or a problem with the formula. Extreme sleepiness or very fussy. Cold symptoms with nasal stuffiness, especially if the baby is having difficulty feeding. Constipation with hard stools. Blue or dusky color, call 911. If Your Baby Needs to Remain in the Hospital: Please leave your baby???s ID bracelets on if your baby needs to remain in the hospital after you are discharged home. The phone number to NICU is [phone]. The phone number to [facility] is [phone]. The phone number to [facility] is [phone]. moms should pump every 2-3 hours or 8-12 times in 24 hours.?? If unable to place the baby to breast, if you are having difficulty getting the baby to latch on, or if the baby remains inthe hospital after you are discharged ??? bring the pumped milk to the hospital, labeled with name,date and time.?? Carry it in a small cooler or diaper bag with an ice pack and bring it the next time you visit your baby.?? Consultation Services is available if you need to rent or purchase a pump or products.?? Call and leave a message at [phone] ??? press 3 and a method consultant will return your call that day or the next if you call after 3pm. ? * Joellen RICE, Rosemarie Nelson: PERFORM Event Display: Care Team Progress Note Authored Date: [id number] Patient: ??RUDY WILKINS ? Age:??22 Years?Sex:??Female?:??2000?? Subjective my baby is coming back to me today Assessment/Plan Symphony pump use demonstrated to mother.?Initiation/maintenance mode explained.?? Set up and flange fit to 27mm. ??Educated on: Frequency and duration of pumping Hands on pumping Adding hand expression Correct flange size Cleaning of pump parts ?? Mother states she has pumped once in the NICU and has latched the baby once with some good sucks.??She noted that the pump was painful when she used it. Flange fit and increased her size.?? Mother denies any pain now with pumping. Encouraged to continue to pump even after feeding baby due to late .?? Mom states baby is supplementing with formula in the NICU currently. ?? guide and services contact information given.?? Encouraged mom to call out to nurse for help with latch when baby comes back to her room. services will follow up before discharge. MOther admits to having a pump for home already. OB Summary : 5 Parity: 1 . Baby A - Weight: 3.151 kg Baby A - Date, Time of : 12/19/22 17:25:00 Baby A - Date, Time of : 12/19/22 14:25:00 Baby A - Gender: Female Baby A - Gender: Female Baby A - Complications: None Baby A - Complications: None EGA at Documented Date, Time: 35W 5D Weight at Delivery Baby A - Delivery Type: Vaginal Baby A - Delivery Type: Vaginal Delivery Complications: None OB History History?(1,0,3,1)? # 1 ?Baby 1 ?Outcome Date:??2018 ?Outcome or Result:??Vaginal ?Gest Age:??38 weeks 6 days ? Outcome:??Live ? Sex:??Male ?Maternal Complications:??Gestational diabetes ?Child's Name:??Herve ?Hospital:[facility] M ?? # 2 ?Baby 1 ?Outcome Date:??2020 ?Outcome or Result:??Spontaneous ?Gest Age:??4 weeks ? Outcome:? Sex:??-- ?? # 3 ?Baby 1 ?Outcome Date:??2021 ?Outcome or Result:??Spontaneous ?Gest Age:??4 weeks ? Outcome:? Sex:??-- ?? # 4 ?Baby 1 ?Outcome Date:??02/2022 ?Outcome or Result:??Spontaneous with D&C ?Gest Age:??12 weeks ? Outcome:? Sex:??-- ?Comment:??She states she was 12 weeks she was told she was only 6 weeks. 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, antepartum: (Medical) Home Medications Acetaminophen: 975 mg = 3 tablet, By Mouth, Every 8 hours Aspirin: See Instructions, 2 tablet By Mouth Daily at bedtime Docusate: 100 mg = 1 capsule, By Mouth, 2 times a day, PRN (as needed for constipation) Doxylamine: 25 mg = 1 tablet, By Mouth, Daily at bedtime, PRN (for sleep) Durable Medical Equipment: See Instructions, glucose monitoring 4 times daily during Durable Medical Equipment: See Instructions, glucose monitoring 4 times daily during Durable Medical Equipment: See Instructions, glucose monitoring 4 times daily during Durable Medical Equipment: See Instructions, glucose monitoring 4 times daily during Famotidine: 20 mg = 1 tablet, By Mouth, 2 times a day, Take twice daily for acid reflux and to helpwith nausea and vomiting. Ferrous Sulfate: 325 mg = 1 tablet, By Mouth, Daily Ibuprofen: 600 mg = 1 tablet, By Mouth, Every 6 hours Insulin Glargine: 45 units, Subcutaneous Injection, Daily at bedtime Insulin Glargine: 47 units, Subcutaneous Injection, Daily at bedtime Insulin Lispro: 20 units, Subcutaneous Infusion, 3 times a day before meals Metronidazole Topical: 1 application, Vaginally, Daily, At night Miscellaneous Rx (FREESTYLE LANCETS 100): See Instructions, USE DIRECTED FOUR TIMES DAILY Miscellaneous Rx (FREESTYLE LITE BLOOD GLUCOSE STRIPS): See Instructions, USE DIRECTED FOUR TIMES DAILY Multivitamin, : 1 tablet, By Mouth, Daily Polyethylene Glycol 3350: 17 Gm, By Mouth, Daily, Take daily as needed for constipation Polyethylene Glycol 3350: 17 Gm, By Mouth, Daily, dissolve in water before taking. Use daily until regular bowel movements. Polyethylene Glycol 3350: 17 Gm, By Mouth, Daily, dissolve in water before taking Simethicone: 180 mg = 1 capsule, By Mouth, 4 times a day Medications Medications (5) Active SCHEDULED: (2) Insulin Glargine 100 units/mL Inj (Lantus Inj) ??24 units 0.24 mL, Subcutaneous Injection, Daily atbedtime Multivitamin Tablet ??1 tablet, By Mouth, Daily CONTINUOUS: (0) PRN: (3) Acetaminophen 325 mg Tablet (Acetaminophen Tablet) ??650 mg, By Mouth, Every 4 hours Docusate Sodium 100 mg Capsule (Docusate Sodium Capsule) ??100 mg 1 capsule, By Mouth, 2 times a day Ibuprofen 800 mg Tablet (Ibuprofen Tablet) ??800 mg, By Mouth, Every 8 hours Patient Care team information Care Team Personnel Name: Not on Staff, PCP Position: [facility] Physician (General Medicine) Member Role: PCP Name: Cara Haq RN Position: [facility] OB RN Member Role: Patient Care Provider Name: Carmen Cruz RN Position: [facility] OB RN Member Role: Patient Care Provider Care Team Related Persons Name: RUDY WILKINS GIRL Address: [id number] Address: home [address] [place] [id number] Name: KEI DUNCAN Address: home [address] [place] [id number]
--- OUTSIDE RECORDS SUMMARY | 2023-03-26 00:44 | XMS_ITS | Continuity of Care Document ---
Author Name Unknown Organization [facility] Address [address] [place] [id number] Care Team Providers Care Behavioral Health Rn Name Role Phone Not on Staff, PCP Primary Care Physician Unavail able Encounter [facility] Date(s): 05/09/22 - 06/08/[address] [id number]- Allergies, Adverse Reactions, Alerts No Known Medication Allergies Medications doxylamine 25 mg oral tablet 1 tablet = 25 mg, By Mouth, Daily at bedtime, PRN for sleep, # 60 tablet, 0 Refills, Maintenance, 05/27/22 22:41:00 EST, Tablet, [id number], Partial fill upon patient request if the prescription is for a schedule II opioid drug., 168,... Start Date: 05/27/22 Status: Ordered ondansetron 4 mg oral tablet 1 tablet = 4 mg, By Mouth, Every 6 hours, # 12 tablet, 1 Refills, Maintenance, 05/27/22 21:28:00 EST, Tablet, [facility] #[id number], Partial fill upon patient request if the prescription is fora schedule II opioid drug., 168, cm, 05/27/22 12:06... Start Date: 05/27/22 Status: Ordered Multivitamins with Folic Acid 1 mg oral tablet 1 tablet, By Mouth, Daily, # 30 tablet, 0 Refills, Maintenance, 03/07/22 11:03:00 EDT, Tablet, Partial fill upon patient request if the prescription is for a schedule II opioid drug. Start Date: 03/07/22 Status: Ordered Vitamin B6 25 mg oral tablet 1 tablet = 25 mg, By Mouth, 3 times a day, # 60 tablet, 0 Refills, Maintenance, 05/27/22 22:41:00 EST, [facility] #[id number], Partial fill upon patient request if the prescription is for a schedule II opioid drug., 168, cm, 05/27/22 12:06:00 EST... Start Date: 05/27/22 Status: Ordered Vitamin D2 2000 intl units oral capsule 1 capsule = 50 mcg, By Mouth, Daily, with food, # 60 capsule, 0 Refills, Maintenance, 03/07/22 11:03:00 EDT, Capsule, Partial fill upon patient request if the prescription is for a schedule II opioiddrug. Start Date: 03/07/22 Status: Ordered Problem List Condition Confirmation Course Effective Dates Status Health St [facility]us Informant Three previous miscarriages, affecting care of mother in first trimester, antepartum Confirmed Active H/O gestational diabetes in prior , currently 1 Confirmed Active [id number] then 3 miscarriages Social History Social History Type Response Smoking Status Never (less than 100 in lifetime) entered on: 05/22/22 Sex Patient Care team information Care Team Personnel Name: Not on Staff, PCP Position: S Physician (General Medicine) Member Role: PCP Care Team Related Persons Name: HALEYGUILLERMINAKEI Address: home [address] [place] [id number]
--- OUTSIDE RECORDS SUMMARY | 2023-03-26 00:44 | XMS_ITS | Continuity of Care Document ---
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 Date(s): 10/26/22 - 01/06/[address] [address]- Attending Physician: Not on Staff, Attending MD Admitting Physician: Not on Staff, Admitting MD Referring Physician: Not on Staff, Referring MD Allergies, Adverse Reactions, Alerts No Known Medication Allergies Immunizations Given and Recorded Vaccine Date Status Refusal Reason tetanus/diphtheria/pertussis, acel(Tdap) 10/26/22 Given Medications Alcohol Wipes See Instructions, # 200 each, [...] Replace Required Details, Route to Pharmacy Electronically, [facility] #[id number], Partial fill upon p... Start Date: 08/30/22 Status: Ordered docusate sodium 100 mg oral capsule 1 capsule = 100 mg, By Mouth, 2 times a day, PRN as needed for constipation, # 20 capsule, 2 Refills, Maintenance, 11/15/22 12:51:00 EDT, Capsule, [email or web address] #[id number], Partial fill upon patient request if the prescription is for a schedule II... Start Date: 11/15/22 Status: Ordered famotidine 20 mg oral tablet 20 mg, 1, tablet, By Mouth, 2 times a day, Take twice daily for acid reflux and to help with nauseaand vomiting., # 60 tablet, Refills 2, Tot. Refills 2, Maintenance, 10/03/22 15:40:00 EDT, Route toPharmacy Electronically, [facility] #[id number]... Start Date: 10/03/22 Status: Ordered Freestyle [...] 12/20/22 9:10:00 EDT, Route to Pharmacy Electronically, [email or web address] #[id number], Partial fill uponpatient request if the prescription is for a schedu... Start Date: 12/20/22 Status: Ordered MiraLax oral powder for reconstitution = 17 Gm, By Mouth, Daily, Take daily as needed for constipation, # 255 Gm, 1 Refills, Maintenance, 06/25/22 15:48:00 EST, REC Powder, [facility] #[id number], Partial fill upon patient request ifthe prescription is for a schedule II opioid drug.,... Start Date: 06/25/22 Status: Ordered MiraLax oral powder for reconstitution = 17 Gm, By Mouth, Daily, dissolve in water before taking, # 255 Gm, 0 Refills, Maintenance, 12/20/22 9:10:00 EDT, REC Powder, [facility] #[id number], Partial fill upon patient request if the prescription is for a schedule II opioid drug., 17 Gm... Start Date: 12/20/22 Status: Ordered MiraLax oral powder for reconstitution = 17 Gm, By Mouth, Daily, dissolve in water before taking. Use daily until regular bowel movements., # 255 Gm, 4 Refills, Maintenance, 11/15/22 12:51:00 EDT, REC Powder, [facility] #[id number], Partial fill upon patient request if the [...] capsule, 0 Refills, Maintenance, 12/20/22 9:10:00EDT, Capsule, [facility] #[id number], Partial fill upon patient request if the prescription isfor a schedule II opioid drug., 168, cm, 12/20/22 8... Start Date: 12/20/22 Status: Ordered Tylenol 325 mg oral tablet 975 mg, 3, tablet, By Mouth, Every 8 hours, # 60 tablet, Refills 0, Tot. Refills 0, Maintenance, 12/20/22 9:10:00 EDT, Route to Pharmacy Electronically, [facility] #[id number], Partial fill uponpatient request if the prescription is for a schedu... Start Date: 12/20/22 Status: Ordered Unisom 25 mg oral tablet 1 tablet = 25 mg, By Mouth, Daily at bedtime, PRN for sleep, # 32 tablet, 0 Refills, Maintenance, 07/03/22 5:15:00 EST, Tablet, [facility] #[id number], Partial fill upon patient request if the [...] of placental abruption Confirmed Active Confirmed Active 35166 then 3 miscarriages Social History Social History Type Response Smoking Status Never (less than 100 in lifetime) entered on: 05/22/22 Sex Patient Care team information Care Team Personnel Name: Not on Staff, PCP Position: S Physician (General Medicine) Member Role: PCP Care Team Related Persons Name: KEI DUNCAN Address: home [address] [place] [id number] Name: DILEEP DUNCAN Address: [id number] Address: home [address] [place] [address]
--- OUTSIDE RECORDS SUMMARY | 2023-03-26 00:44 | XMS_ITS | Continuity of Care Document ---
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 Start Date: 08/30/22 Status: Ordered docusate sodium 100 mg oral capsule 1 capsule = 100 mg, By Mouth, 2 times a day, PRN as needed for constipation, # 20 capsule, 2 Refills, Maintenance, 11/15/22 12:51:00 EDT, Capsule, [facility] #[id number], Partial fill upon patient request if the prescription is for a schedule II... Start Date: 11/15/22 Status: Ordered famotidine 20 mg oral tablet 20 mg, 1, tablet, By Mouth, 2 times a day, Take twice daily for acid reflux and to help with nauseaand vomiting., # 60 tablet, Refills 2, Tot. Refills 2, Maintenance, 10/03/22 15:40:00 EDT, Route toPharmacy Electronically, [facility] #[id number]... Start Date: 10/03/22 Status: Ordered ferrous sulfate 325 mg oral tablet 1 tablet = 325 mg, By Mouth, Daily, # 90 tablet, 1 Refills, Maintenance, 11/02/22 7:39:00 EDT, Tablet, [facility] #[id number], Partial fill upon patient request if the prescription is for a schedule II opioid drug., 168, cm, 10/26/22 13:03:00 EDT... Start Date: 11/02/22 Status: Ordered Freestyle Lite Lancets See Instructions, # 200 each, Maintenance, glucose monitoring 4 times daily during , 10/15/22 11:28:00 EDT, Supply, 168, cm, 10/03/22 14:55:00 EDT, Height, 86, kg, 10/01/22 20:23:00 EDT, DryWeight Start Date: 10/15/22 Status: Ordered Freestyle Lite Monitor See Instructions, # 1 each, Refills 0, Tot. Refills 0, Maintenance, glucose monitoring 4 times daily during , 10/15/22 11:28:00 EDT, Supply, 168, cm, 10/03/22 14:55:00 EDT, Height, 86, kg, 10/01/22 20:23:00 EDT, Dry Weight Start Date: 10/15/22 Status: Ordered Freestyle Lite Test Strips See Instructions, # 200 each, Refills 0, Tot. Refills 0, Maintenance, glucose monitoring 4 times daily during , 10/15/22 11:28:00 EDT, Supply, 168, cm, 10/03/22 14:55:00 EDT, Height, 86, kg,10/01/22 20:23:00 EDT, Dry Weight Start Date: 10/15/22 Status: Ordered Insulin Lispro KwikPen 100 units/mL injectable solution = 20 units, Subcutaneous Infusion, 3 times a day before meals, # 15 mL, 1 Refills, Maintenance, 11/16/22 16:15:00 EDT, [facility] #[id number], Partial fill upon patient request if the prescription is for a schedule II opioid drug. This replaces p... Start Date: 11/16/22 Status: Ordered Lantus Solostar Pen 100 units/mL subcutaneous solution = 45 units, Subcutaneous Injection, Daily at bedtime, # 15 mL, 0 Refills, Maintenance, 10/22/22 14:12:00 EDT, Solution, [facility], Partial fill upon patient request if the prescriptionis for a schedule II opioid drug., 168, cm, ... Start Date: 10/22/22 Status: Ordered Lantus Solostar Pen 100 units/mL subcutaneous solution = 47 units, Subcutaneous Injection, Daily at bedtime, # 15 mL, 1 Refills, Maintenance, 11/16/22 16:15:00 EDT, Solution, [facility] #[id number], Partial fill upon patient request if the prescription is for a schedule II opioid drug. This replaces... Start Date: 11/16/22 Status: Ordered MiraLax oral powder for reconstitution = 17 Gm, By Mouth, Daily, Take daily as needed for constipation, # 255 Gm, 1 Refills, Maintenance, 06/25/22 15:48:00 EST, REC Powder, [facility] #[id number], Partial fill upon patient request ifthe prescription is for a schedule II opioid drug.,... Start Date: 06/25/22 Status: Ordered MiraLax oral powder for reconstitution = 17 Gm, By Mouth, Daily, dissolve in water before taking. Use daily until regular bowel movements., # 255 Gm, 4 Refills, Maintenance, 11/15/22 12:51:00 EDT, REC Powder, [facility] #[id number], Partial fill upon patient request if the prescriptio... Start Date: 11/15/22 Status: Ordered ondansetron 4 mg oral tablet 1 tablet = 4 mg, By Mouth, Every 8 hours, PRN Nausea & Vomiting, # 10 tablet, 0 Refills, Acute 12/06/22 23:41:00 EDT, 12/02/22 23:41:00 EDT, Tablet, [facility] #[id number], Partial fill uponpatient request if the prescription is for a schedule I... Start Date: 12/02/22 Stop Date: 12/06/22 Status: Ordered Multivitamins with Folic Acid 1 mg oral tablet 1 tablet, By Mouth, Daily, # 30 tablet, 0 Refills, Maintenance, 03/07/22 11:03:00 EDT, Tablet, Partial fill upon patient request if the prescription is for a schedule II opioid drug. 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
--- OUTSIDE RECORDS SUMMARY | 2023-03-26 00:44 | XMS_ITS | Continuity of Care Document ---
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 Start Date: 03/07/22 Status: Ordered ibuprofen 800 mg oral tablet 800 mg, 1, tablet, By Mouth, Every 8 hours, # 30 tablet, Refills 0, Tot. Refills 0, Maintenance, 01/22/22 13:08:00 EDT, Route to Pharmacy Electronically, [facility] #[id number], Partial fill upon patient request if the prescription is for a sched... Start Date: 01/22/22 Status: Ordered ondansetron 4 mg oral tablet, disintegrating 1 tablet = 4 mg, By Mouth, Every 8 hours, PRN Nausea & Vomiting, # 10 tablet, 0 Refills, Maintenance, 08/05/21 18:51:00 EDT, Tablet, [facility] #[id number], Partial fill upon patient requestif the prescription is for a schedule II opioid drug.,... Start Date: 08/05/21 Status: Ordered Multivitamins with Folic Acid 1 mg oral tablet 1 tablet, By Mouth, Daily, # 30 tablet, 0 Refills, Maintenance, 03/07/22 11:03:00 EDT, Tablet, Partial fill upon patient request if the prescription is for a schedule II opioid drug. Start Date: 03/07/22 Status: Ordered Tylenol Extra Strength 500 mg oral tablet 2 tablet = 1,000 mg, By Mouth, Every 8 hours, PRN for pain, # 40 tablet, 0 Refills, Maintenance, 01/22/22 13:08:00 EDT, Tablet, [facility] #[id number], Partial fill upon patient request if the prescription is for a schedule II opioid drug., 168,... Start Date: 01/22/22 Status: Ordered Vitamin D2 2000 intl units oral capsule 1 capsule = 50 mcg, By Mouth, Daily, with food, # 60 capsule, 0 Refills, Maintenance, 03/07/22 11:03:00 EDT, Capsule, Partial fill upon patient request if the prescription is for a schedule II opioiddrug. Start Date: 03/07/22 Status: Ordered Vitamin D3 50,000 intl units oral capsule 1 capsule = 1,250 mcg, By Mouth, Every week, # 12 capsule, 0 Refills, Maintenance, 03/07/22 11:03:00 EDT, Capsule, Partial fill upon patient request if the prescription is for a schedule II opioid drug. Start Date: 03/07/22 Status: Ordered Problem List Condition Confirmation Course Effective Dates Status [facility] Informant Obese class I Confirmed Active Social History Social History Type Response Smoking Status Never (less than 100 in lifetime) entered on: 08/05/21 Sex Patient Care team information Care Team Personnel Name: Not on Staff, PCP Position: S Physician (General Medicine) Member Role: PCP Care Team Related Persons Name: KEI DUNCAN Address: home [address] [place] [id number]
--- OUTSIDE RECORDS SUMMARY | 2023-03-26 00:44 | XMS_ITS | Continuity of Care Document ---
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 Role Phone Not on Staff, PCP Primary Care Physician Unavail able Encounter [facility] Date(s): 07/09/22 - 08/08/22 [facility] [address] [place] [id number] Attending Physician: Héctor Zaldivar Admitting Physician: Héctor Zaldivar Referring Physician: Admtr, Ar8 Allergies, Adverse Reactions, Alerts No Known Medication Allergies Medications doxylamine 25 mg oral tablet 1 tablet = 25 mg, By Mouth, Daily at bedtime, PRN for sleep, # 60 tablet, 0 Refills, Maintenance, 05/27/22 22:41:00 EST, Tablet, [facility] #[id number], Partial fill upon patient request if the prescription is for a schedule II opioid drug., 168,... Start Date: 05/27/22 Status: Ordered famotidine 20 mg oral tablet 20 mg, 1, tablet, By Mouth, 2 times a day, Take twice daily for acid reflux and to help with nauseaand vomiting., # 60 tablet, Refills 2, Tot. Refills 2, Maintenance, 06/25/22 15:48:00 EST, Route toPharmacy Electronically, [facility] #[id number]... Start Date: 06/25/22 Status: Ordered MiraLax oral powder for reconstitution = 17 Gm, By Mouth, Daily, Take daily as needed for constipation, # 255 Gm, 1 Refills, Maintenance, 06/25/22 15:48:00 EST, REC Powder, [facility] #[id number], Partial fill upon patient request ifthe prescription is for a schedule II opioid drug.,... Start Date: 06/25/22 Status: Ordered ondansetron 4 mg oral tablet 1 tablet = 4 mg, By Mouth, Every 6 hours, # 12 tablet, 1 Refills, Maintenance, 05/27/22 21:28:00 EST, Tablet, [facility] #[id number], Partial fill upon patient request if the prescription is fora schedule II opioid drug., 168, cm, 05/27/22 12:06... Start Date: 05/27/22 Status: Ordered ondansetron 4 mg oral tablet, disintegrating 1 tablet = 4 mg, By Mouth, Every 8 hours, PRN Nausea & Vomiting, # 30 tablet, 0 Refills, Maintenance, 07/03/22 5:15:00 EST, Tablet, [facility] #[id number], Partial fill upon patient request if the prescription is for a schedule II opioid drug., 1... Start Date: 07/03/22 Status: Ordered pantoprazole 20 mg oral delayed release tablet 1 tablet = 20 mg, By Mouth, Daily, # 30 tablet, 0 Refills, Maintenance, 07/03/22 5:17:00 EST, CR Tablet, 168, cm, 07/03/22 5:10:00 EST, Height, 87, kg, 05/27/22 12:06:00 EST, Dry Weight Start Date: 07/03/22 Status: Ordered Multivitamins with Folic Acid 1 mg oral tablet 1 tablet, By Mouth, Daily, # 30 tablet, 0 Refills, Maintenance, 03/07/22 11:03:00 EDT, Tablet, Partial fill upon patient request if the prescription is for a schedule II opioid drug. Start Date: 03/07/22 Status: Ordered Reglan 10 mg oral tablet 1 tablet = 10 mg, By Mouth, 3 times a day, PRN Nausea & Vomiting, # 30 tablet, 1 Refills, Maintenance, 06/25/22 15:25:00 EST, [facility] #[id number], Partial fill upon patient request if theprescription is for a schedule II opioid drug., 168, cm... Start Date: 06/25/22 Status: Ordered Unisom 25 mg oral tablet 1 tablet = 25 mg, By Mouth, Daily at bedtime, PRN for sleep, # 32 tablet, 0 Refills, Maintenance, 07/03/22 5:15:00 EST, Tablet, [facility] #[id number], Partial fill upon patient request if the prescription is for a schedule II opioid drug., 168,... Start Date: 07/03/22 Status: Ordered Vitamin B6 25 mg oral tablet 1 tablet = 25 mg, By Mouth, 3 times a day, # 60 tablet, 0 Refills, Maintenance, 05/27/22 22:41:00 EST, [facility] #[id number], Partial fill upon patient request if the prescription is for a schedule II opioid drug., 168, cm, 05/27/22 12:06:00 EST... Start Date: 05/27/22 Status: Ordered Vitamin B6 50 mg oral tablet 50 mg, 1, tablet, By Mouth, 3 times a day, for 30 days, # 90 tablet, Refills 2, Tot. Refills 2, Acute 10/04/22 15:53:00 EDT, 07/06/22 15:53:00 EST, Route to Pharmacy Electronically, [facility] #[id number], Partial fill upon patient request if the... Start Date: 07/06/22 Stop Date: 10/04/22 Status: Ordered Vitamin D2 2000 intl units oral capsule 1 capsule = 50 mcg, By Mouth, Daily, with food, # 60 capsule, 0 Refills, Maintenance, 03/07/22 11:03:00 EDT, Capsule, Partial fill upon patient request if the prescription is for a schedule II opioiddrug. Start Date: 03/07/22 Status: Ordered Problem List Condition Confirmation Course Effective Dates Status [facility] Inform[facility] Constipation Confirmed Active Frequent headaches Confirmed Active Acid reflux Confirmed Active Three previous miscarriages, affecting care of mother in first trimester, antepartum Confirmed Active H/O gestational diabetes in prior , currently 1 Confirmed Active History of placental abruption Confirmed Active Nausea and vomiting in Confirmed Active Confirmed Active [address] then 3 miscarriages Social History Social History Type Response Smoking Status Never (less than 100 in lifetime) entered on: 05/22/22 Sex Patient Care team information Care Team Personnel Name: Not on Staff, PCP Position: S Physician (General Medicine) Member Role: PCP Care Team Related Persons Name: KEI DUNCAN Address: home [address] [place] [address] [address] [place] [address]
--- OUTSIDE RECORDS SUMMARY | 2023-03-26 00:44 | XMS_ITS | Continuity of Care Document ---
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 Name Role Phone Not on Staff, PCP Primary Care Physician Unavail able Encounter [facility] Date(s): 07/03/22 - 07/03/[address] [address]- Discharge Disposition: A-D/C Home Attending Physician: Lanette Constantino MD Admitting Physician: Lanette Constantino MD Referring Physician: Lanette Constantino MD Allergies, Adverse Reactions, Alerts No Known Medication Allergies Medications doxylamine 25 mg oral tablet 1 tablet = 25 mg, By Mouth, Daily at bedtime, PRN for sleep, # 60 tablet, 0 Refills, Maintenance, 05/27/22 22:41:00 EST, Tablet, [facility] #[id number], Partial fill upon patient request if the prescription is for a schedule II opioid drug., 168,... Start Date: 05/27/22 Status: Ordered famotidine 20 mg oral tablet 20 mg, 1, tablet, By Mouth, 2 times a day, Take twice daily for acid reflux and to help with nauseaand vomiting., # 60 tablet, Refills 2, Tot. Refills 2, Maintenance, 06/25/22 15:48:00 EST, Route toPharmacy Electronically, [facility] #[id number]... Start Date: 06/25/22 Status: Ordered MiraLax oral powder for reconstitution = 17 Gm, By Mouth, Daily, Take daily as needed for constipation, # 255 Gm, 1 Refills, Maintenance, 06/25/22 15:48:00 EST, REC Powder, [facility] #[id number], Partial fill upon patient request ifthe prescription is for a schedule II opioid drug.,... Start Date: 06/25/22 Status: Ordered ondansetron 4 mg oral tablet 1 tablet = 4 mg, By Mouth, Every 6 hours, # 12 tablet, 1 Refills, Maintenance, 05/27/22 21:28:00 EST, Tablet, [facility] #[id number], Partial fill upon patient request if the prescription is fora schedule II opioid drug., 168, cm, 05/27/22 12:06... Start Date: 05/27/22 Status: Ordered ondansetron 4 mg oral tablet, disintegrating 1 tablet = 4 mg, By Mouth, Every 8 hours, PRN Nausea & Vomiting, # 30 tablet, 0 Refills, Maintenance, 07/03/22 5:15:00 EST, Tablet, [facility] #[id number], Partial fill upon patient request if the [...] tablet, 1 Refills, Maintenance, 06/25/22 15:25:00 EST, [facility] #[id number], Partial fill upon patient request if theprescription is for a schedule II opioid drug., 168, cm... Start Date: 06/25/22 Status: Ordered Unisom 25 mg oral tablet 1 tablet = 25 mg, By Mouth, Daily at bedtime, PRN for sleep, # 32 tablet, 0 Refills, Maintenance, 07/03/22 5:15:00 EST, Tablet, [facility] #[id number], Partial fill upon patient request if the prescription is for a schedule II opioid drug., 168,... Start Date: 07/03/22 Status: Ordered Vitamin B6 25 mg oral tablet 1 tablet = 25 mg, By Mouth, 3 times a day, # 60 tablet, 0 Refills, Maintenance, 05/27/22 22:41:00 EST, [facility] #[id number], Partial fill upon patient request if the prescription is for a schedule II opioid drug., 168, cm, 05/27/22 12:06:00 EST... Start Date: 05/27/22 Status: Ordered Vitamin B6 50 mg oral tablet 50 mg, 1, tablet, By Mouth, 3 times a day, for 30 days, # 90 tablet, Refills 0, Tot. Refills 0, Acute 08/02/22 5:15:00 EDT, 07/03/22 5:15:00 EST, Route to Pharmacy Electronically, [facility] #[id number], Partial fill upon patient request if the p... Start Date: 07/03/22 Stop Date: 08/02/22 Status: Ordered Vitamin D2 2000 intl units oral capsule 1 capsule = 50 mcg, By Mouth, Daily, with food, # 60 capsule, 0 Refills, Maintenance, 03/07/22 11:03:00 EDT, Capsule, Partial fill upon patient request if the prescription is for a schedule II opioiddrug. Start Date: 03/07/22 Status: Ordered Problem List Condition Confirmation Course Effective Dates Status Health St atus Informant Constipation Confirmed Active Frequent headaches Confirmed Active Acid reflux Confirmed Active Three previous miscarriages, affecting care of mother in first trimester, antepartum Confirmed Active H/O gestational diabetes in prior , currently 1 Confirmed Active History of placental abruption Confirmed Active Nausea and vomiting in Confirmed Active Confirmed Active 18092 then 3 miscarriages Vital Signs Most recent to oldest [Reference Range]: 1 Height 168 cm (07/02/22 11:58 PM) Oxygen Saturation [94-100 %] 99 % (07/03/22 12:13 AM) Pulse Rate [55-90 bpm] 72 bpm (07/03/22 12:13 AM) Blood Pressure [90-138/55-84 mm Hg] 102/ 55mm Hg (07/03/22 12:13 AM) Respiratory Rate [16-30 br/min] 18 br/mi n (07/03/22 12:13 AM) Temperature [96.8-100.4 DegF] 98.0 DegF (07/03/22 12:13 AM) Mode of Delivery (Oxygen) Room air (07/03/22 12:13 AM) Blood pressure sites Arm, left 1 (07/03/22 12:13 AM) Temperature Route Oral (07/03/22 12:13 AM) 1Result Comment: 35cm Social History Social History Type Response Smoking Status Never (less than 100 in lifetime) entered on: 05/22/22 Sex Note * Kim RICE, Breann Parry: PERFORM Event Display: Discharge/Transfer Note Hospital Authored Date: [id number] Nursing Discharge Note Entered On: 07/03/2022 5:11 EST Performed On: 07/03/2022 5:11 EST by Breann Alvarez RN Nursing Discharge Note 2 Discharge Time : 07/03/2022 5:11 EST Discharge Level of Care at Discharge : Home/Nursing Home/Foster Care Patient Left Unit Via : Ambulatory Patient Accompanied Off Unit with : Other: self DC Instructions Provided & Signed by Pt : Yes Patient Understands D/C Instructions : Yes Patient Instructions Discharge Signed : Yes Did Pt have Specialty Bed or Wound Vac : No Breann Alvarez RN - 07/03/2022 5:11 EST * Event Display: Discharge/Transfer Note Hospital Authored Date: [id number] * Breann Alvarez RN: PERFORM Event Display: Patient Education/Instruction Authored Date: [id number] Inpatient Adult Discharge Instructions [address] [address] Name: RUDY ORDAZ : 2000 Visit: 07/03/2022 00:03:00 Current Date: 07/03/2022 04:43 Account: [id number] Inpatient Adult Discharge Instructions We would like [...] and their families. Surveys are administered by [employer] ?? If further treatment with your primary care physician or another doctor is recommended, it is important for you to keep the appointment. Call your primary care physician or return to the Emergency Department immediately if your condition worsens, fails to improve, or new symptoms develop. If you need to find a doctor, you can call [facility] for a referral at [phone] or toll free at [phone]) or log in to [email or web address].. ?? You can view and manage your care through the patient portal or by using a health care [facility] of your choosing. [employer] is a website that allows you to securely view your medical information including your hospital discharge summary, office visit summaries, medications and follow-up visits. You can also request appointments, renew medications, and request access to your medical information using a health care [facility] of your choosing, or just ask a question. You can enroll at [email or web address] or register during your next office visit. You have been discharged from [facility], Patient Care Unit: [id number]. If you have any questions regarding these instructions after you leave, please call us and we will be happy to assist you. [facility] Your Care Team Attending Physician Dougie LINN, Lanette Jacobs Reason for Admission PREG KIARA 01 11 23 ABDPAANA PAULA Tests Performed Below is a partial list of the tests performed during your hospitalization. You may have had other tests and procedures not included in this list. Please discuss all test results with your provider. Amylase CBC Comprehensive Metabolic Panel Lipase Primary Care Provider Not on Staff, PCP Advance Directive Health Care Proxy on File No Discharge Vitals Temperature: 98 DegF Pulse Rate: 72 bpm Respiratory Rate: 18 br/min Systolic Blood Pressure: 102 mm Hg Diastolic Blood Pressure: 55 mm Hg Oxygen Saturation: 99 % Studies Pending All tests and labs ordered during this hospital stay have been completed unless listed below. Please discuss all pending results with your provider listed above in these instructions. ?? No incomplete studies found What to do next Instructions From Your Doctor Discharge Orders Scheduled Follow-Up Appointments Saturday 2:40 PM EDT ?? With: Renate Cotter CNM Where: [facility] [address] [place] [id number]- Saturday 1:00 PM EDT ?? With: Renate Cotter CNM Where: [facility] [address] [place] [phone]- Saturday 2:20 PM EDT ?? With: Ladonna Lovell DO Where: [facility] [address] [place] [address]- You Need to Schedule the Following Appointments Follow Up with??[facility] [phone] When?? Discharge Medications EL RUDY ORDAZ :2000 Visit Date:07/03/2022 Medications: Please continue your medications until treatment is completed or stopped by your provider. Medications not listed below should be discontinued. Discuss any questions related to medications with your provider. What How Much When Instructions Next Dose Unchanged Doxylamine (doxylamine 25 mg oral tablet) 1 tab(s) Oral Daily at Bedtime as needed for for sleep Unchanged Ergocalciferol (Vitamin D2 2000 intl units oral capsule) 1 capsule Oral Daily with food ?? Unchanged Famotidine (famotidine 20 mg oral tablet) 1 tab(s) Oral Twice a day Take twice daily for acid reflux and to help with nausea and vomiting. ?? Unchanged Metoclopramide (Reglan 10 mg oral tablet) 1 tab(s) Oral 3 times a day as needed for Nausea & Vomiting Unchanged Multivitamin, ( Multivitamins with Folic Acid 1 mg oral tablet) 1 tab(s) Oral Daily Unchanged Ondansetron (ondansetron 4 mg oral tablet) 1 tab(s) Oral Every 6 hours Unchanged Polyethylene Glycol 3350 (MiraLax oral powder for reconstitution) 17 gram Oral Daily Take daily as needed for constipation ?? Unchanged Pyridoxine (Vitamin B6 25 mg oral tablet) 1 tab(s) Oral 3 times a day Test Results Below is a partial list of the most recent Laboratory test results done prior to this discharge. You may have had other tests and procedures not included in this list. Please discuss all test resultswith your provider. Amylase (07/03/2022) ???Amylase - 85 units/L CBC (07/03/2022) ???WBC - 9.2 k/mm3???RBC - 4.31 m/mm3???Hgb - 12.2 Gm/dL???Hct - 35.5 %???MCV - 82.4 femtoliters???MCH - 28.3 pg???MCHC - 34.4 g/dL???Platelet Count - 276 k/mm3???RDW-SD - 42.8 femtoliters???MPV - 9.8 femtoliters???Nucleated RBC (Automated) - 0.0 #/100 WBC'S???Abs. NRBC - 0.0 k/mm3 Comprehensive Metabolic Panel (07/03/2022) ???Sodium - 135 mmol/L???Potassium - 4.4 mmol/L???Chloride - 102 mmol/L???Bicarbonate Level - 20 mmol/L???Anion Gap - 13???Glucose Level - 100 mg/dL???BUN - 5 mg/dL???Creatinine-Blood - 0.5 mg/dL???Estimated GFR Creatinine - 139 ML/MIN/1.73 M2???Calcium - 9.2 mg/dL???Protein, Total - 6.8 Gm/dL???Alb umin - 3.8 Gm/dL???AG Ratio - 1.3???Alkaline Phosphatase - 104 units/L???AST (SGOT) - 24 units/L???ALT (SGPT) - 13 units/L???Bilirubin, Total - 0.4 mg/dL Lipase (07/03/2022) ???Lipase - 51 units/L Allergies (NKA means No Known Allergies) No Known Medication Allergies Problems Active Problems??(9) Acid reflux?? Constipation?? Frequent headaches?? H/O gestational diabetes in prior , currently ?? History of placental abruption?? Nausea and vomiting in ? 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 Education Materials Below is the list of Educational Leaflet Providered with your Discharge Instructions. : Your First Trimester Changes?? Adapting to : First Trimester?? Common Discomforts During ?? Severe Morning Sickness (Hyperemesis Gravidarum)?? Hyperemesis Gravidarum?? Valuables and Belongings I fully understand and agree that [facility] accepts no responsibility for all [...] encouraged to send valuables and belongings home. ? Other Discharge Information ? Pulmonary Rehab Status?? [...] strongly encouraged to quit. Please call [facility] at [phone] or [phone] ([phone]) or log in to [email or web address] for referrals to smoking cessation programs. ?? The National Suicide Prevention Hotline is available 26/11 if you or someone you know needs to find a reason to keep living. By calling 8-171-139-NextDocs (0555) you'll be connected to a skilled, trained counselor at a crisis center in your area. INPATIENT DISCHARGE INSTRUCTIONS SIGNATURE PAGE RUDY WILKINS Location:[facility] Registration Date and Time:07/03/2022 00:03 EST Primary Care Physician: Not on Staff, PCP I RUDY WILKINS, have received the above patient education materials/instructions and have verbalized understanding. If ambulance or transport services are being used I further acknowledge beinggiven a choice of service. ?? If you need to contact me, please call me at this number: . Patient/Corporate Financial Analyst Name: Patient/Corporate Financial Analyst Signature: Relationship to Patient: Witness Name/Signature: Date: * Breann Alvarez RN: PERFORM Event Display: Patient Education Leaflets Authored Date: : Your First Trimester Changes ?? [address] : Your First Trimester Changes The first trimester is a time of rapid development for your baby. Because your baby is growing so quickly, it is important that you start a healthy lifestyle right away. By the end of the first trimester, your baby has formed all of its major body organs and weighs just over an ounce. Month 1 (weeks 1 to 4) The placenta (the organ that nourishes your baby) begins to form. The??brain, spinal cord,??heart,??gastrointestinal tract,??and lungs begin to develop. Your baby is about ?? inch long by the end of the first month. Actual size of baby is 1/4 . ?? Month 2 (weeks 5 to 8) All of your baby???s major body organs form. The face, fingers, toes, ears, and eyes appear. By theend of the month, your baby is about 1 inch long. Actual size of baby is 1 . ?? Month 3 (weeks 9 to 12) Your baby can open and close its fists and mouth. The sexual organs begin to form. As the first trimester ends, your baby is about 3 inches long. Actual size of baby is 3 . ?? Last Reviewed Date: 2022 ?? [employer]. All rights reserved. This information is not intended as a substitute for professional medical care. Always follow your healthcare professional's instructions. ?? * Breann Alvarez RN: PERFORM Event Display: Patient Education Leaflets Authored Date: [id number] Adapting to : First Trimester ?? [id number] Adapting to : First Trimester As your body adjusts during your first trimester of , you may have to change or limit yourdaily activities. You???ll need more rest. You may also need to use the energy you have more wisely. Your changing body Almost every part of your body is affected as you adapt to . The uterus and cervix will start to soften right away. You may not look very during the first 3 months. But you are likely to have some common signs of early : ??? Nausea ??? Fatigue ??? Frequent urination ??? Mood swings ??? Bloating of the belly ??? Constipation ??? Heartburn ??? Missed or light periods (first trimester bleeding) ??? Nipple or breast tenderness and breast swelling ?? It???s not too late to start good habits What matters most is protecting your baby from this moment on. If you smoke, drink alcohol, or use drugs, now is the time to stop. If you need help, talk with your healthcare provider: ??? Smoking increases the risk of stillbirth??or having a [id number]-[id number] baby. If you smoke, quit now. ??? Alcohol and drugs have been linked with miscarriage, defects, intellectual disability, and low weight. Don't drink alcohol or take drugs. ?? Tips to relieve nausea During , nausea can happen at any time of the day, but it may be worse in the morning. To help prevent nausea: ??? Eat small, light meals at frequent intervals. ??? Drink fluids often. ??? Get up slowly. Eat a few unsalted crackers before you get out of bed. ??? Avoid smells that bother you. ??? Avoid spicy and fatty foods. ??? Eat an ice pop??in your favorite flavor. ??? Get plenty of rest. ??? Ask your healthcare provider about taking bryce or vitamin B6 for nausea and vomiting. ???Talk with your healthcare provider if you take vitamins that upset your stomach. ?? Work concerns The end of the first trimester is a good time to discuss working during with your employer. Follow your healthcare provider???s advice if your job needs you to stand for a long time, work with hazardous tools, or even sit at a desk all day. Your workspace, workload, or scheduled hours mayneed to be adjusted. Perhaps you can change body postures more often or take an extra break. ?? Advice for travel Talk to your healthcare provider first, but the second trimester may be the best time for any travel. You may be advised to avoid certain trips while you???re . Food and water can be concernsin developing countries. Travel by car is a good choice, as you can stop, get out, and stretch. Bring snacks and water along. Fasten the lap belt below your belly, low over your hips. Also be sure to wear the shoulder harness. ?? Intimacy Unless your healthcare provider tells you to, there's no reason to stop having sex while you???re . You or your partner may notice changes in desire. Desire may be less in the first trimesterdue to nausea and fatigue. In the second trimester, sex may be very enjoyable. The third trimester can be a challenge comfort-sethi. Try different positions and see what???s best for you both. ?? How daily issues affect your health Many things in your daily life impact your health. This can include transportation, money problems,housing, access to food, and child daycare worker. If you can???t get to medical appointments, you may not receive the care you need. When money is tight, it may be difficult to pay for medicines. And living far from a grocery store can make it hard to buy healthy food. If you have concerns in any of these or other areas, talk with your healthcare team. They may know of local resources to assist you. Or they may have a staff person who can help. ?? Last Reviewed Date: 2022 ?? [id number] [employer]. All rights reserved. This information is not intended as a substitute for professional medical care. Always follow your healthcare professional's instructions. ?? * Kim RICE, Breann Parry: PERFORM Event Display: Patient Education Leaflets Authored Date: [id number] Common Discomforts During ?? Q09005 Common Discomforts During Symptoms of discomfort due to vary from person to person. Below are some common discomforts. But each [id number] may have different symptoms or none at all: ??? Nausea and vomiting. Abouthalf of all people have nausea and sometimes vomiting in the first trimester. This is alsocalled morning sickness. That's because symptoms are most severe in the morning. Some people may have nausea and vomiting throughout the .??Morning sickness may be due to the changes in hormone levels during . Morning sickness seems to be??made worse??by stress, traveling, and certain foods, like spicy or fatty foods. Eating small meals several times a day may help lessen the symptoms. A diet high in protein and complex carbohydrates (like whole-wheat bread, pasta, bananas, and green, leafy vegetables) may also help reduce the severity of the nausea. If vomiting is severe, causing you to lose fluids and weight, it may??be a sign of??a condition called hyperemesis gravidarum. Hyperemesis can lead to dehydration and may need a hospital stay for intravenous fluids and nutrition. Call your healthcare provider or special weapons unit officer if you are having constant or severe nausea and vomiting. ??? Fatigue. As the body works overtime to provide a nourishing environment for the fetus, it is no wonder a person often feels tired. In the first trimester, their blood volume and other fluids increase as their body adjusts to the . Sometimes anemia is the underlying cause of the fatigue. Anemia is a drop in the ability of red blood cells to carry oxygen. It is often due to low iron levels. A simple blood test done at a visit will check for anemia. ??? Hemorrhoids. Hemorrhoids are common in late . That's because of the increased pressure on the rectum and perineum, the increased blood volume, and the increased likelihood of becoming constipated as the progresses. Preventing constipation and straining may help to prevent hemorrhoids. Always check with your healthcare provider or special weapons unit officer before using any medicine to treat this condition.??? Varicose veins. Varicose veins???swollen, purple veins???are common in the legs and around the vaginal opening during late . In most cases, varicose veins are caused by the increased pressure on the legs and the pelvic veins. It is also caused by the increased blood volume. ??? Heartburn and indigestion. Heartburn and indigestion is caused by pressure on the intestines and stomach (which, in turn, pushes stomach contents back up into the esophagus). It can be prevented or reduced by eating smaller meals throughout the day and by not lying down shortly after eating. ??? Bleeding gums. Gums may become more spongy as blood flow increases during . This causes them to bleedeasily. A person should continue to take care of her teeth and gums and go to the dentist for regular checkups. This symptom usually disappears after . ??? Pica. Pica is a rare craving to eat substances other than food, like dirt, magdalena, or coal. The craving may be a sign of a nutritional deficiency. ??? Swelling or fluid retention. Mild swelling is common during . But se james swelling that??lasts may??be a sign of??preeclampsia (abnormal condition marked by high blood pressure). Lying on the left side, elevating the legs, and wearing support hose and comfortable shoes may help to relieve the swelling. Be sure to notify your??healthcare provider??or special weapons unit officer about sudden swelling, especially in the hands or face, or rapid weight gain. ??? Skin changes. Because of changes in hormone levels, including hormones that stimulate pigmentation of the skin, brown, blotchypatches may??happen on the face, forehead, or cheeks. This is often called the mask of , or chloasma. It often disappears soon after delivery. Using sunscreen when outside can reduce the amount of darkening that happens.?? Pigmentation may also increase in the skin surrounding the nipples,called the areola. A dark line??also often appears down the middle of the stomach. Freckles may darken, and moles may grow. ??? Stretch rizo. Pinkish stretch rizo may appear on the stomach, breasts, thighs, or buttocks. Stretch rizo are generally caused by a rapid increase in weight. The rizo us ually fade after . ??? Yeast infections. Due to hormone changes and increased vaginal discharge, also called leukorrhea, a person is more prone to yeast infections. Yeast infectionscause a thick, whitish discharge from the vagina and itching. Yeast infections are highly treatable. Always talk with your healthcare provider or special weapons unit officer before taking any medicine for this condition.? Congested or bloody nose. During , the lining of the respiratory tract receives more blood, often making it more congested. This congestion can also cause stuffiness in the nose or nosebleeds. Small blood vessels in the nose are also easily damaged due to the increased blood volume, causing nosebleeds. ??? Constipation. Increased pressure from the on the rectum and intestines can interfere with digestion and bowel movements. Hormone changes may also slow down the food being processed by the body. Increasing fluids, exercising regularly, and increasing the fiber in your diet are some of the ways to prevent constipation. Always check with your healthcare provider or special weapons unit officer before taking any medicine for this condition.? Backache. As a person's weight increases, their balance changes. Their center of gravity is pulled forward,??straining the back. Pelvic joints that begin to loosen in preparation for childbirth also contribute to this back strain. Correct posture and correct lifting methods throughout the can help reduce the strain on the back.??? Dizziness. Dizziness during is a common symptom. It may be caused by: o Low blood pressure due to the uterus compressing major arteries o Low blood sugar o Low iron o Quickly moving from a sitting position to a standing position o Dehydration To prevent injury from falling during episodes of dizziness, a person should stand up slowly and hold on to the childers and other stable structures for support and balance. ??? Headaches. Hormonal changes may be the cause of headaches during , especially during the first trimester. Rest, correct nutrition, and adequate fluidintake may help??ease headache symptoms. Always talk with your healthcare provider or special weapons unit officer??before taking any medicine for this condition. If you have a severe headache or a headache that does notgo away, call your healthcare provider. It may be a sign of preeclampsia.?? Last Reviewed Date: 2022 ?? 9037-9241 [employer]. All rights reserved. This information is not intended as a substitute for professional medical care. Always follow your healthcare professional's instructions. ?? Patient Care team information Care Team Personnel Name: Not on Staff, PCP Position: [facility] Physician (General Medicine) Member Role: PCP Name: Breann Alvarez RN Position: [facility] OB RN Member Role: Patient Care Provider Care Team Related Persons Name: KEI DUNCAN Address: home [address] [place] [id number]
--- OUTSIDE RECORDS SUMMARY | 2023-03-26 00:44 | XMS_ITS | Continuity of Care Document ---
Author Name Unknown Organization [facility] Address [address] [place] [address]- Care Team Providers Care Utility Lineman Name Role Phone Not on Staff, PCP Primary Care Physician Unavail able Encounter [facility] Date(s): 12/14/22 - 01/19/23 [facility] [address] [address]- Attending Physician: Hannah Covington MD Admitting Physician: Hannah Covington MD Referring Physician: Will Linda MD Allergies, Adverse Reactions, Alerts No Known [...] Replace Required Details, Route to Pharmacy Electronically, [facility] #[id number], Partial fill upon p... Start Date: 08/30/22 Status: Ordered docusate sodium 100 mg oral capsule 1 capsule = 100 mg, By Mouth, 2 times a day, PRN as needed for constipation, # 20 capsule, 2 Refills, Maintenance, 11/15/22 12:51:00 EDT, Capsule, [facility] #[id number], Partial fill upon patient request if the prescription is for a schedule II... Start Date: 11/15/22 Status: Ordered famotidine 20 mg oral tablet 20 mg, 1, tablet, By Mouth, 2 times a day, Take twice daily for acid reflux and to help with nauseaand vomiting., # 60 tablet, Refills 2, Tot. Refills 2, Maintenance, 10/03/22 15:40:00 EDT, Route toPharmacy Electronically, [facility] #[id number]... Start Date: 10/03/22 Status: Ordered [...] 12/20/22 9:10:00 EDT, Route to Pharmacy Electronically, [facility] #[id number], Partial fill uponpatient request if the prescription is for a schedu... Start Date: 12/20/22 Status: Ordered MiraLax oral powder for reconstitution = 17 Gm, By Mouth, Daily, Take daily as needed for constipation, # 255 Gm, 1 Refills, Maintenance, 06/25/22 15:48:00 EST, REC Powder, [facility] #[id number], Partial fill upon patient request ifthe prescription is for a schedule II opioid drug.,... Start Date: 06/25/22 Status: Ordered MiraLax oral powder for reconstitution = 17 Gm, By Mouth, Daily, dissolve in water before taking, # 255 Gm, 0 Refills, Maintenance, 12/20/22 9:10:00 EDT, REC Powder, [facility] #[id number], Partial fill upon patient request if the prescription is for a schedule II opioid drug., 17 Gm... Start Date: 12/20/22 Status: Ordered MiraLax oral powder for reconstitution = 17 Gm, By Mouth, Daily, dissolve in water before taking. Use daily until regular bowel movements., # 255 Gm, 4 Refills, Maintenance, 11/15/22 12:51:00 EDT, REC Powder, [facility] #[id number], Partial fill upon patient request if the [...] capsule, 0 Refills, Maintenance, 12/20/22 9:10:00EDT, Capsule, [facility] #[id number], Partial fill upon patient request if the prescription isfor a schedule II opioid drug., 168, cm, 12/20/22 8... Start Date: 12/20/22 Status: Ordered Tylenol 325 mg oral tablet 975 mg, 3, tablet, By Mouth, Every 8 hours, # 60 tablet, Refills 0, Tot. Refills 0, Maintenance, 12/20/22 9:10:00 EDT, Route to Pharmacy Electronically, [facility] #[id number], Partial fill uponpatient request if the prescription is for a schedu... Start Date: 12/20/22 Status: Ordered Unisom 25 mg oral tablet 1 tablet = 25 mg, By Mouth, Daily at bedtime, PRN for sleep, # 32 tablet, 0 Refills, Maintenance, 07/03/22 5:15:00 EST, Tablet, [facility] #[id number], Partial fill upon patient request if the [...] of placental abruption Confirmed Active Confirmed Active 70890 then 3 miscarriages Social History Social History Type Response Smoking Status Never (less than 100 in lifetime) entered on: 05/22/22 Sex Patient Care team information Care Team Personnel Name: Not on Staff, PCP Position: S Physician (General Medicine) Member Role: PCP Care Team Related Persons Name: KEI DUNCAN Address: [address] [address] Name: DILEEP DUNCAN Address: [id number] Address: home [address] [place] [address]
--- OUTSIDE RECORDS SUMMARY | 2023-03-26 00:44 | XMS_ITS | Continuity of Care Document ---
Author Name Unknown Organization [facility] ter Address [address] [place] [address]- Care Team Providers Care Nutrition Representative Name Role Phone Not on Staff, PCP Primary Care Physician Unavail able Encounter [facility] ACCT R [id number] Date(s): 08/05/21 - 08/05/[address] [address]- Encounter Diagnosis Viral gastritis(Final) - 08/05/21 Abdominal pain(Final) - 08/05/21 Discharge Disposition: A-D/C Home Attending Physician: Miguel Millan MD Admitting Physician: Miguel Millan MD Referring Physician: Not on Staff, Referring MD Allergies, Adverse Reactions, Alerts No Known Medication Allergies Medications cephalexin monohydrate 500 mg oral capsule 1 capsule = 500 mg, By Mouth, 4 times a day, for 7 days, # 28 capsule, 0 Refills, Acute 08/12/21 20:31:00 EDT, 08/05/21 20:31:00 EDT, Capsule, [facility] #[id number], Partial fill upon patient request if the prescription is for a schedule II opio... Start Date: 08/05/21 Stop Date: 08/12/21 Status: Ordered ondansetron 4 mg oral tablet, disintegrating 1 tablet = 4 mg, By Mouth, Every 8 hours, PRN Nausea & Vomiting, # 10 tablet, 0 Refills, Maintenance, 08/05/21 18:51:00 EDT, Tablet, [facility] #[id number], Partial fill upon patient requestif the prescription is for a schedule II opioid drug.,... Start Date: 08/05/21 Status: Ordered Problem List Condition Effective Dates Status Health Status Inform ant Obese class I(Confirmed) Active Vital Signs Most recent to oldest [Reference Range]: 1 2 3 Height 168 cm (08/05/21 6:17 PM) 168 cm (08/05/21 4:32 PM) 168 cm (08/05/21 10:34 AM) Weight 85.9 kg (08/05/21 6:17 PM) 85.9 kg (08/05/21 4:32 PM) 85.9 kg (08/05/21 10:34 AM) Oxygen Saturation [94-100 %] 98 % (08/05/21 6:17 PM) 98 % (08/05/21 4:32 PM) 100 % (08/05/21 2:27 PM) Pulse Rate [55-90 bpm] 70 bpm (08/05/21 6:17 PM) 88 bpm (08/05/21 4:32 PM) 75 bpm (08/05/21 2:27 PM) Body Mass Index [18.5-24.99] 30.44 *>HHI* (08/05/21 6:17 PM) 30.44 *>HHI* (08/05/21 4:32 PM) 30.44 *>HHI* (08/05/21 10:34 AM) Blood Pressure [90-138/55-84 mm Hg] 115/71mm Hg (08/05/21 6:17 PM) 118/68mm Hg (08/05/21 4:32 PM) 114/72mm Hg (08/05/21 2:27 PM) Respiratory Rate [16-30 br/min] 15 br/min *L* (08/05/21 6:17 PM) 20 br/min (08/05/21 4:32 PM) 20 br/min (08/05/21 10:34 AM) Temperature [96.8-100.4 DegF] 98.2 DegF (08/05/21 6:17 PM) 98.9 DegF (08/05/21 4:32 PM) 97.8 DegF (08/05/21 2:27 PM) Liters per Minute 0 L/min (08/05/21 6:17 PM) 0 L/min (08/05/21 4:32 PM) Mode of Delivery (Oxygen) Room air (08/05/21 6:17 PM) Room air (08/05/21 4:32 PM) Room air (08/05/21 2:27 PM) Blood pressure sites Arm, right (08/05/21 6:17 PM) Arm, right (08/05/21 4:32 PM) Arm, right (08/05/21 2:27 PM) Temperature Route Oral (08/05/21 6:17 PM) Oral (08/05/21 4:32 PM) Oral (08/05/21 2:27 PM) Dry Weight 85.9 kg (08/05/21 6:17 PM) 85.9 kg (08/05/21 4:32 PM) 85.9 kg (08/05/21 10:34 AM) Social History Social History Type Response Smoking Status Never (less than 100 in lifetime) entered on: 08/05/21 Sex
--- OUTSIDE RECORDS SUMMARY | 2023-03-26 00:44 | XMS_ITS | Continuity of Care Document ---
Author Name Unknown Organization [facility] Address [address] [place] [address]- Care Team Providers Care Firearms Instructor Name Role Phone Not on Staff, PCP Primary Care Physician Unavail able Encounter [facility] Date(s): 10/22/22 - 11/21/[address] [address]- Allergies, Adverse Reactions, Alerts No Known Medication [...] Replace Required Details, Route to Pharmacy Electronically, [facility] #[id number], Partial fill upon p... Start Date: 08/30/22 Status: Ordered docusate sodium 100 mg oral capsule 1 capsule = 100 mg, By Mouth, 2 times a day, PRN as needed for constipation, # 20 capsule, 2 Refills, Maintenance, 11/15/22 12:51:00 EDT, Capsule, [facility] #[id number], Partial fill upon patient request if the prescription is for a schedule II... Start Date: 11/15/22 Status: Ordered famotidine 20 mg oral tablet 20 mg, 1, tablet, By Mouth, 2 times a day, Take twice daily for acid reflux and to help with nauseaand vomiting., # 60 tablet, Refills 2, Tot. Refills 2, Maintenance, 10/03/22 15:40:00 EDT, Route toPharmacy Electronically, [facility] #[id number]... Start Date: 10/03/22 Status: Ordered ferrous sulfate 325 mg oral tablet 1 tablet = 325 mg, By Mouth, Daily, # 90 tablet, 1 Refills, Maintenance, 11/02/22 7:39:00 EDT, Tablet, [facility] #[id number], Partial fill upon patient request if the prescription is for a schedule II opioid drug., 168, cm, 10/26/22 13:03:00 EDT... Start Date: 11/02/22 Status: Ordered ferrous sulfate 325 mg oral tablet 1 tablet = 325 mg, By Mouth, Every other day, # 90 tablet, 0 Refills, Maintenance, 10/01/22 22:08:00 EDT, Tablet, [facility] #[id number], Partial fill upon patient request if the prescription isfor a schedule II opioid drug., 168, cm, 08/30/22 1... Start Date: 10/01/22 Status: Ordered Freestyle Lite Lancets See Instructions, [...] mL, 1 Refills, Maintenance, 11/16/22 16:15:00 EDT, [facility] #[id number], Partial fill upon patient request if the prescription is for a schedule II opioid drug. This replaces p... Start Date: 11/16/22 Status: Ordered Lantus Solostar Pen 100 units/mL subcutaneous solution = 45 units, Subcutaneous Injection, Daily at bedtime, # 15 mL, 0 Refills, Maintenance, 10/22/22 14:12:00 EDT, Solution, [facility], Partial fill upon patient request if the prescriptionis for a schedule II opioid drug., 168, cm, ... Start Date: 10/22/22 Status: Ordered Lantus Solostar Pen 100 units/mL subcutaneous solution = 47 units, Subcutaneous Injection, Daily at bedtime, # 15 mL, 1 Refills, Maintenance, 11/16/22 16:15:00 EDT, Solution, [facility] #[id number], Partial fill upon patient request if the prescription is for a schedule II opioid drug. This replaces... Start Date: 11/16/22 Status: Ordered metroNIDAZOLE 500 mg oral tablet 1 tablet = 500 mg, By Mouth, Every 12 hours, for 7 days, # 14 tablet, 0 Refills, Acute 11/26/22 9:46:00 EDT, 11/19/22 9:46:00 EDT, Tablet, [facility] #[id number], Partial fill upon patient request if the prescription is for a schedule II opioid d... Start Date: 11/19/22 Stop Date: 11/26/22 Status: Ordered MiraLax oral powder for reconstitution = 17 Gm, By Mouth, Daily, Take daily as needed for constipation, # 255 Gm, 1 Refills, Maintenance, 06/25/22 15:48:00 EST, REC Powder, [facility] #[id number], Partial fill upon patient request ifthe prescription is for a schedule II opioid drug.,... Start Date: 06/25/22 Status: Ordered MiraLax oral powder for reconstitution = 17 Gm, By Mouth, Daily, dissolve in water before taking. Use daily until regular bowel movements., # 255 Gm, 4 Refills, Maintenance, 11/15/22 12:51:00 EDT, REC Powder, [facility] #[id number], Partial fill upon patient request if the prescriptio... Start Date: 11/15/22 Status: Ordered ondansetron 4 mg oral tablet 1 tablet = 4 mg, By Mouth, Every 6 hours, # 12 tablet, 1 Refills, Maintenance, 05/27/22 21:28:00 EST, Tablet, [facility] #[id number], Partial fill upon patient request if the prescription is fora schedule II opioid drug., 168, cm, 05/27/22 12:06... Start Date: 05/27/22 Status: Ordered pantoprazole 20 mg oral delayed [...] 0 Refills, Maintenance, 07/03/22 5:15:00 EST, Tablet, [facility] #[id number], Partial fill upon patient request if the [...] and vomiting in Confirmed Active Confirmed Active 72382 then 3 miscarriages Social History Social History Type Response Smoking Status Never (less than 100 in lifetime) entered on: 05/22/22 Sex Patient Care team information Care Team Personnel Name: Not on Staff, PCP Position: [facility] Physician (General Medicine) Member Role: PCP Care Team Related Persons Name: BARRIE DUNCANSARA Address: home [address] [place] [address]
--- OUTSIDE RECORDS SUMMARY | 2023-03-26 00:44 | XMS_ITS | Continuity of Care Document ---
Author Name Unknown Organization [facility] ter Address [address] [place] [address]- Care Team Providers Care Excavator Backhoe Operator Name Role Phone Not on Staff, PCP Primary Care Physician Unavail able En[place] [facility] Date(s): 11/26/22 - 11/26/[address] [address]- Discharge Disposition: A-D/C Home Attending Physician: Rowena Schwartz DO Admitting Physician: Rowena Schwartz DO Referring Physician: Phoebe Gutiérrez MD Allergies, Adverse Reactions, Alerts No Known [...] Replace Required Details, Route to Pharmacy Electronically, [facility] #[id number], Partial fill upon p... Start Date: 08/30/22 Status: Ordered docusate sodium 100 mg oral capsule 1 capsule = 100 mg, By Mouth, 2 times a day, PRN as needed for constipation, # 20 capsule, 2 Refills, Maintenance, 11/15/22 12:51:00 EDT, Capsule, [facility] #[id number], Partial fill upon patient request if the prescription is for a schedule II... Start Date: 11/15/22 Status: Ordered famotidine 20 mg oral tablet 20 mg, 1, tablet, By Mouth, 2 times a day, Take twice daily for acid reflux and to help with nauseaand vomiting., # 60 tablet, Refills 2, Tot. Refills 2, Maintenance, 10/03/22 15:40:00 EDT, Route toPharmacy Electronically, [facility] #[id number]... Start Date: 10/03/22 Status: Ordered ferrous sulfate 325 mg oral tablet 1 tablet = 325 mg, By Mouth, Daily, # 90 tablet, 1 Refills, Maintenance, 11/02/22 7:39:00 EDT, Tablet, [facility] #[id number], Partial fill upon patient request if the [...] mL, 1 Refills, Maintenance, 11/16/22 16:15:00 EDT, [facility] #[id number], Partial fill upon patient request if the prescription is for a schedule II opioid drug. This replaces p... Start Date: 11/16/22 Status: Ordered Lantus Solostar Pen 100 units/mL subcutaneous solution = 45 units, Subcutaneous Injection, Daily at bedtime, # 15 mL, 0 Refills, Maintenance, 10/22/22 14:12:00 EDT, Solution, [facility], Partial fill upon patient request if the prescriptionis for a schedule II opioid drug., 168, cm, ... Start Date: 10/22/22 Status: Ordered Lantus Solostar Pen 100 units/mL subcutaneous solution = 47 units, Subcutaneous Injection, Daily at bedtime, # 15 mL, 1 Refills, Maintenance, 11/16/22 16:15:00 EDT, Solution, [facility] #[id number], Partial fill upon patient request if the prescription is for a schedule II opioid drug. This replaces... Start Date: 11/16/22 Status: Ordered MiraLax oral powder for reconstitution = 17 Gm, By Mouth, Daily, Take daily as needed for constipation, # 255 Gm, 1 Refills, Maintenance, 06/25/22 15:48:00 EST, REC Powder, [facility] #[id number], Partial fill upon patient request ifthe prescription is for a schedule II opioid drug.,... Start Date: 06/25/22 Status: Ordered MiraLax oral powder for reconstitution = 17 Gm, By Mouth, Daily, dissolve in water before taking. Use daily until regular bowel movements., # 255 Gm, 4 Refills, Maintenance, 11/15/22 12:51:00 EDT, REC Powder, [facility] #[id number], Partial fill upon patient request if the [...] 0 Refills, Maintenance, 07/03/22 5:15:00 EST, Tablet, [facility] #[id number], Partial fill upon patient request if the [...] of placental abruption Confirmed Active Confirmed Active 38437 then 3 miscarriages Social History Social History Type Response Smoking Status Never (less than 100 in lifetime) entered on: 05/22/22 Sex Patient Care team information Care Team Personnel Name: Not on Staff, PCP Position: [facility] Physician (General Medicine) Member Role: PCP Name: Rowan Stokes V Position: [facility] OB RN Member Role: Patient Care Provider Care Team Related Persons Name: KEI DUNCAN Address: [address] [address]
--- OUTSIDE RECORDS SUMMARY | 2023-03-26 00:44 | XMS_ITS | Continuity of Care Document ---
Author Name Unknown Organization [facility] Address [address] [place] [address]- Care Team Providers Care Medical Office Assistant Instructor Name Role Phone Not on Staff, PCP Primary Care Physician Unavail able Encounter [facility] Date(s): 11/22/22 - 12/22/22 [facility] [address] [place] [id number] Allergies, Adverse Reactions, Alerts No Known Medication [...] Replace Required Details, Route to Pharmacy Electronically, [facility] #[id number], Partial fill upon p... Start Date: 08/30/22 Status: Ordered docusate sodium 100 mg oral capsule 1 capsule = 100 mg, By Mouth, 2 times a day, PRN as needed for constipation, # 20 capsule, 2 Refills, Maintenance, 11/15/22 12:51:00 EDT, Capsule, [facility] #[id number], Partial fill upon patient request if the prescription is for a schedule II... Start Date: 11/15/22 Status: Ordered famotidine 20 mg oral tablet 20 mg, 1, tablet, By Mouth, 2 times a day, Take twice daily for acid reflux and to help with nauseaand vomiting., # 60 tablet, Refills 2, Tot. Refills 2, Maintenance, 10/03/22 15:40:00 EDT, Route toPharmacy Electronically, [facility] #[id number]... Start Date: 10/03/22 Status: Ordered Freestyle [...] 12/20/22 9:10:00 EDT, Route to Pharmacy Electronically, [facility] #[id number], Partial fill uponpatient request if the prescription is for a schedu... Start Date: 12/20/22 Status: Ordered MiraLax oral powder for reconstitution = 17 Gm, By Mouth, Daily, Take daily as needed for constipation, # 255 Gm, 1 Refills, Maintenance, 06/25/22 15:48:00 EST, REC Powder, [facility] #[id number], Partial fill upon patient request ifthe prescription is for a schedule II opioid drug.,... Start Date: 06/25/22 Status: Ordered MiraLax oral powder for reconstitution = 17 Gm, By Mouth, Daily, dissolve in water before taking, # 255 Gm, 0 Refills, Maintenance, 12/20/22 9:10:00 EDT, REC Powder, [facility] #[id number], Partial fill upon patient request if the prescription is for a schedule II opioid drug., 17 Gm... Start Date: 12/20/22 Status: Ordered MiraLax oral powder for reconstitution = 17 Gm, By Mouth, Daily, dissolve in water before taking. Use daily until regular bowel movements., # 255 Gm, 4 Refills, Maintenance, 11/15/22 12:51:00 EDT, REC Powder, [facility] #[id number], Partial fill upon patient request if the [...] capsule, 0 Refills, Maintenance, 12/20/22 9:10:00EDT, Capsule, [facility] #[id number], Partial fill upon patient request if the prescription isfor a schedule II opioid drug., 168, cm, 12/20/22 8... Start Date: 12/20/22 Status: Ordered Tylenol 325 mg oral tablet 975 mg, 3, tablet, By Mouth, Every 8 hours, # 60 tablet, Refills 0, Tot. Refills 0, Maintenance, 12/20/22 9:10:00 EDT, Route to Pharmacy Electronically, [facility] #[id number], Partial fill uponpatient request if the prescription is for a schedu... Start Date: 12/20/22 Status: Ordered Unisom 25 mg oral tablet 1 tablet = 25 mg, By Mouth, Daily at bedtime, PRN for sleep, # 32 tablet, 0 Refills, Maintenance, 07/03/22 5:15:00 EST, Tablet, [facility] #[id number], Partial fill upon patient request if the [...] of placental abruption Confirmed Active Confirmed Active 69999 then 3 miscarriages Social History Social History Type Response Smoking Status Never (less than 100 in lifetime) entered on: 05/22/22 Sex Patient Care team information Care Team Personnel Name: Not on Staff, PCP Position: [facility] Physician (General Medicine) Member Role: PCP Care Team Related Persons Name: RUDY WILKINS GIRL Address: [id number] Address: home [address] [place] [address] Name: SHAR DUNCANGIA Address: home [address] [place] [address]
--- OUTSIDE RECORDS SUMMARY | 2023-03-26 00:44 | XMS_ITS | Continuity of Care Document ---
Author Name Unknown Organization [facility] Address [address] [place] [address]- Care Team Providers Care Military Personnel Specialist Name Role Phone Not on Staff, PCP Primary Care Physician Unavail able Encounter [facility] [id number] Date(s): 01/23/22 - 03/09/[address] [address]- Attending Physician: Not on Staff, Attending MD Allergies, Adverse Reactions, Alerts No Known [...] 01/22/22 13:08:00 EDT, Route to Pharmacy Electronically, [facility] #[id number], Partial fill upon patient request if the prescription is for a sched... Start Date: 01/22/22 Status: Ordered ondansetron 4 mg oral tablet, disintegrating 1 tablet = 4 mg, By Mouth, Every 8 hours, PRN Nausea & Vomiting, # 10 tablet, 0 Refills, Maintenance, 08/05/21 18:51:00 EDT, Tablet, [facility] #[id number], Partial fill upon patient requestif the prescription [...] 0 Refills, Maintenance, 01/22/22 13:08:00 EDT, Tablet, [facility] #[id number], Partial fill upon patient request if the [...] Effective Dates Status Health St atus Informant Obese class I Confirmed Active Social History Social History Type Response Smoking Status Never (less than 100 in lifetime) entered on: 08/05/21 Sex Patient Care team information Personnel Name: Not on Staff, PCP
--- OUTSIDE RECORDS SUMMARY | 2023-03-26 00:44 | XMS_ITS | Continuity of Care Document ---
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 Start Date: 08/30/22 Status: Ordered docusate sodium 100 mg oral capsule 1 capsule = 100 mg, By Mouth, 2 times a day, PRN as needed for constipation, # 20 capsule, 2 Refills, Maintenance, 11/15/22 12:51:00 EDT, Capsule, [facility] #[id number], Partial fill upon patient request if the prescription is for a schedule II... Start Date: 11/15/22 Status: Ordered famotidine 20 mg oral tablet 20 mg, 1, tablet, By Mouth, 2 times a day, Take twice daily for acid reflux and to help with nauseaand vomiting., # 60 tablet, Refills 2, Tot. Refills 2, Maintenance, 10/03/22 15:40:00 EDT, Route toPharmacy Electronically, [facility] #[id number]... Start Date: 10/03/22 Status: Ordered ferrous sulfate 325 mg oral tablet 1 tablet = 325 mg, By Mouth, Daily, # 90 tablet, 1 Refills, Maintenance, 11/02/22 7:39:00 EDT, Tablet, [facility] #[id number], Partial fill upon patient request if the prescription is for a schedule II opioid drug., 168, cm, 10/26/22 13:03:00 EDT... Start Date: 11/02/22 Status: Ordered FREESTYLE LANCETS 100 FREESTYLE LANCETS 100, See Instructions, # 200 each, 0 Refills, Maintenance, USE DIRECTED FOUR TIMES DAILY, 12/06/22 13:05:00 EDT, 168, cm, 11/22/22 15:57:00 EDT, Height, 86, kg, 10/01/22 20:23:00EDT, Dry Weight Start Date: 12/06/22 Status: Ordered FREESTYLE LITE BLOOD GLUCOSE STRIPS FREESTYLE LITE BLOOD GLUCOSE STRIPS, See Instructions, # 200 Unknown, 0 Refills, Maintenance, USE DIRECTED FOUR TIMES DAILY, 12/06/22 13:05:00 EDT, 168, cm, 11/22/22 15:57:00 EDT, Height, 86, kg, 10/01/22 20:23:00 EDT, Dry Weight Start Date: 12/06/22 Status: Ordered Freestyle Lite Lancets See Instructions, [...] mL, 1 Refills, Maintenance, 11/16/22 16:15:00 EDT, [email or web address] #[id number], Partial fill upon patient request if the prescription is for a schedule II opioid drug. This replaces p... Start Date: 11/16/22 Status: Ordered Lantus Solostar Pen 100 units/mL subcutaneous solution = 45 units, Subcutaneous Injection, Daily at bedtime, # 15 mL, 0 Refills, Maintenance, 10/22/22 14:12:00 EDT, Solution, [facility], Partial fill upon patient request if the prescriptionis for a schedule II opioid drug., 168, cm, ... Start Date: 10/22/22 Status: Ordered Lantus Solostar Pen 100 units/mL subcutaneous solution = 47 units, Subcutaneous Injection, Daily at bedtime, # 15 mL, 1 Refills, Maintenance, 11/16/22 16:15:00 EDT, Solution, [email or web address] #[id number], Partial fill upon patient request if the prescription is for a schedule II opioid drug. This replaces... Start Date: 11/16/22 Status: Ordered metroNIDAZOLE 0.75% topical gel 1 application, Vaginally, Daily, At night, # 70 Gm, 0 Refills, Maintenance, 12/04/22 13:55:00 EDT, [facility] #[id number], Partial fill upon patient request if the prescription is for a scheduleII opioid drug., 1 application Vaginally Daily,x5 d... Start Date: 12/04/22 Stop Date: 12/09/22 Status: Ordered MiraLax oral powder for reconstitution = 17 Gm, By Mouth, Daily, Take daily as needed for constipation, # 255 Gm, 1 Refills, Maintenance, 06/25/22 15:48:00 EST, REC Powder, [facility] #[id number], Partial fill upon patient request ifthe prescription is for a schedule II opioid drug.,... Start Date: 06/25/22 Status: Ordered MiraLax oral powder for reconstitution = 17 Gm, By Mouth, Daily, dissolve in water before taking. Use daily until regular bowel movements., # 255 Gm, 4 Refills, Maintenance, 11/15/22 12:51:00 EDT, REC Powder, [facility] #[id number], Partial fill upon patient request if the [...] 0 Refills, Maintenance, 07/03/22 5:15:00 EST, Tablet, [facility] #[id number], Partial fill upon patient request if the [...] of placental abruption Confirmed Active Confirmed Active 96107 then 3 miscarriages Social History Social History Type Response Smoking Status Never (less than 100 in lifetime) entered on: 05/22/22 Sex Radiology * Event Display: PDC Limited Fluid Check * Event Display: PDC Limited Fluid Check Authored Date: [id number] OBSTETRICS REPORT PATIENT INFO: CMRN: [id number] BMRN: [id number] : [birth year] (22 yrs)(F) Name: RUDY ORDAZ Visit Date: 12/17/2022 01:20 pm PERFORMED BY: Performed By: Gretel Monson RDMS Attending: Evelyn Ernandez MD Referred By: SIDDHARTH Schwartz DO [facility] INDICATIONS: Marginal insertion of umbilical cord affecting O43.199 management of mother Gestational diabetes requiring insulin O24.414 FHR deceleration, arrhythmia ( variables) O36.83 VITAL SIGNS: Height: 5'6 EVALUATION: Num Of Fetuses: 1 Heart Rate(bpm): 166 Cardiac Activity: Present Presentation: Cephalic Placenta: Anterior Amniotic Fluid CHERI FV: Within normal limits CHERI Sum(cm) Largest Pocket(cm) 15.3 6.2 RUQ(cm) RLQ(cm) LUQ(cm) LLQ(cm) 6.2 2.4 3.3 3.4 BIOMETRY: OB HISTORY: Blood Type: AB+ : 5 Term: 1 SAB: 3 Livin GESTATIONAL AGE: LMP: 36w 4d Date: 04/05/22 KIARA: 01/10/23 Best: 35w 3d Det. By: Peña Olson KIARA: 01/18/23 (06/04/22) CERVIX UTERUS ADNEXA: Cervix Not well seen COMMENTS: The amniotic fluid volume is normal. Evelyn Ernandez MD Electronically Signed Corrected Final Report 12/17/2022 02:53 pm * Event Display: PDC Limited Fluid Check Authored Date: [id number] Please click on pdf link to open report Patient Care team information Care Team Personnel Name: Not on Staff, PCP Position: [facility] Physician (General Medicine) Member Role: PCP Care Team Related Persons Name: KEI DUNCAN Address: home [address] [place] [address]
--- OUTSIDE RECORDS SUMMARY | 2023-03-26 00:44 | XMS_ITS | Continuity of Care Document ---
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 Start Date: 08/30/22 Status: Ordered docusate sodium 100 mg oral capsule 1 capsule = 100 mg, By Mouth, 2 times a day, PRN as needed for constipation, # 20 capsule, 2 Refills, Maintenance, 11/15/22 12:51:00 EDT, Capsule, [facility] #[id number], Partial fill upon patient request if the prescription is for a schedule II... Start Date: 11/15/22 Status: Ordered famotidine 20 mg oral tablet 20 mg, 1, tablet, By Mouth, 2 times a day, Take twice daily for acid reflux and to help with nauseaand vomiting., # 60 tablet, Refills 2, Tot. Refills 2, Maintenance, 10/03/22 15:40:00 EDT, Route toPharmacy Electronically, [facility] #[id number]... Start Date: 10/03/22 Status: Ordered Freestyle [...] 12/20/22 9:10:00 EDT, Route to Pharmacy Electronically, [facility] #[id number], Partial fill uponpatient request if the prescription is for a schedu... Start Date: 12/20/22 Status: Ordered MiraLax oral powder for reconstitution = 17 Gm, By Mouth, Daily, Take daily as needed for constipation, # 255 Gm, 1 Refills, Maintenance, 06/25/22 15:48:00 EST, REC Powder, [facility] #[id number], Partial fill upon patient request ifthe prescription is for a schedule II opioid drug.,... Start Date: 06/25/22 Status: Ordered MiraLax oral powder for reconstitution = 17 Gm, By Mouth, Daily, dissolve in water before taking, # 255 Gm, 0 Refills, Maintenance, 12/20/22 9:10:00 EDT, REC Powder, [facility] #[id number], Partial fill upon patient request if the prescription is for a schedule II opioid drug., 17 Gm... Start Date: 12/20/22 Status: Ordered MiraLax oral powder for reconstitution = 17 Gm, By Mouth, Daily, dissolve in water before taking. Use daily until regular bowel movements., # 255 Gm, 4 Refills, Maintenance, 11/15/22 12:51:00 EDT, REC Powder, [facility] #[id number], Partial fill upon patient request if the [...] capsule, 0 Refills, Maintenance, 12/20/22 9:10:00EDT, Capsule, [facility] #[id number], Partial fill upon patient request if the prescription isfor a schedule II opioid drug., 168, cm, 12/20/22 8... Start Date: 12/20/22 Status: Ordered Tylenol 325 mg oral tablet 975 mg, 3, tablet, By Mouth, Every 8 hours, # 60 tablet, Refills 0, Tot. Refills 0, Maintenance, 12/20/22 9:10:00 EDT, Route to Pharmacy Electronically, [facility] #[id number], Partial fill uponpatient request if the prescription is for a schedu... Start Date: 12/20/22 Status: Ordered Unisom 25 mg oral tablet 1 tablet = 25 mg, By Mouth, Daily at bedtime, PRN for sleep, # 32 tablet, 0 Refills, Maintenance, 07/03/22 5:15:00 EST, Tablet, [facility] #[id number], Partial fill upon patient request if the [...] of placental abruption Confirmed Active Confirmed Active [address] then 3 miscarriages Social History Social History Type Response Smoking Status Never (less than 100 in lifetime) entered on: 05/22/22 Sex Patient Care team information Care Team Personnel Name: Not on Staff, PCP Position: S Physician (General Medicine) Member Role: PCP Care Team Related Persons Name: KEI DUNCAN Address: home [address] [place] [id number] Name: DILEEP DUNCAN Address: [id number] Address: home [address] [place] [address]
--- OUTSIDE RECORDS SUMMARY | 2023-03-26 00:45 | XMS_ITS | Continuity of Care Document ---
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 Start Date: 08/30/22 Status: Ordered docusate sodium 100 mg oral capsule 1 capsule = 100 mg, By Mouth, 2 times a day, PRN as needed for constipation, # 20 capsule, 2 Refills, Maintenance, 11/15/22 12:51:00 EDT, Capsule, [email or web address] #[id number], Partial fill upon patient request if the prescription is for a schedule II... Start Date: 11/15/22 Status: Ordered famotidine 20 mg oral tablet 20 mg, 1, tablet, By Mouth, 2 times a day, Take twice daily for acid reflux and to help with nauseaand vomiting., # 60 tablet, Refills 2, Tot. Refills 2, Maintenance, 10/03/22 15:40:00 EDT, Route toPharmacy Electronically, [email or web address] #[id number]... Start Date: 10/03/22 Status: Ordered Freestyle [...] 12/20/22 9:10:00 EDT, Route to Pharmacy Electronically, [email or web address] #[id number], Partial fill uponpatient request if the prescription is for a schedu... Start Date: 12/20/22 Status: Ordered MiraLax oral powder for reconstitution = 17 Gm, By Mouth, Daily, Take daily as needed for constipation, # 255 Gm, 1 Refills, Maintenance, 06/25/22 15:48:00 EST, REC Powder, [email or web address] #23737, Partial fill upon patient request ifthe prescription is for a schedule II opioid drug.,... Start Date: 06/25/22 Status: Ordered MiraLax oral powder for reconstitution = 17 Gm, By Mouth, Daily, dissolve in water before taking, # 255 Gm, 0 Refills, Maintenance, 12/20/22 9:10:00 EDT, REC Powder, [facility] #[id number], Partial fill upon patient request if the prescription is for a schedule II opioid drug., 17 Gm... Start Date: 12/20/22 Status: Ordered MiraLax oral powder for reconstitution = 17 Gm, By Mouth, Daily, dissolve in water before taking. Use daily until regular bowel movements., # 255 Gm, 4 Refills, Maintenance, 11/15/22 12:51:00 EDT, REC Powder, [facility] #[id number], Partial fill upon patient request if the [...] capsule, 0 Refills, Maintenance, 12/20/22 9:10:00EDT, Capsule, [facility] #[id number], Partial fill upon patient request if the prescription isfor a schedule II opioid drug., 168, cm, 12/20/22 8... Start Date: 12/20/22 Status: Ordered Tylenol 325 mg oral tablet 975 mg, 3, tablet, By Mouth, Every 8 hours, # 60 tablet, Refills 0, Tot. Refills 0, Maintenance, 12/20/22 9:10:00 EDT, Route to Pharmacy Electronically, [facility] #[id number], Partial fill uponpatient request if the prescription is for a schedu... Start Date: 12/20/22 Status: Ordered Unisom 25 mg oral tablet 1 tablet = 25 mg, By Mouth, Daily at bedtime, PRN for sleep, # 32 tablet, 0 Refills, Maintenance, 07/03/22 5:15:00 EST, Tablet, [facility] #[id number], Partial fill upon patient request if the [...] of placental abruption Confirmed Active Confirmed Active 47180 then 3 miscarriages Social History Social History Type Response Smoking Status Never (less than 100 in lifetime) entered on: 05/22/22 Sex Patient Care team information Care Team Personnel Name: Not on Staff, PCP Position: [facility] Physician (General Medicine) Member Role: PCP Care Team Related Persons Name: HALEYGUILLERMINA KEI Address: home [address] [place] [address] Name: DILEEP DUNCAN Address: [id number] Address: home [address] [place] [address]
--- OUTSIDE RECORDS SUMMARY | 2023-03-26 00:45 | XMS_ITS | Continuity of Care Document ---
Author Name Unknown Organization 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 Start Date: 08/30/22 Status: Ordered docusate sodium 100 mg oral capsule 1 capsule = 100 mg, By Mouth, 2 times a day, PRN as needed for constipation, # 20 capsule, 2 Refills, Maintenance, 11/15/22 12:51:00 EDT, Capsule, [facility] #[id number], Partial fill upon patient request if the prescription is for a schedule II... Start Date: 11/15/22 Status: Ordered famotidine 20 mg oral tablet 20 mg, 1, tablet, By Mouth, 2 times a day, Take twice daily for acid reflux and to help with nauseaand vomiting., # 60 tablet, Refills 2, Tot. Refills 2, Maintenance, 10/03/22 15:40:00 EDT, Route toPharmacy Electronically, [facility] #[id number]... Start Date: 10/03/22 Status: Ordered Freestyle [...] 12/20/22 9:10:00 EDT, Route to Pharmacy Electronically, [facility] #[id number], Partial fill uponpatient request if the prescription is for a schedu... Start Date: 12/20/22 Status: Ordered MiraLax oral powder for reconstitution = 17 Gm, By Mouth, Daily, Take daily as needed for constipation, # 255 Gm, 1 Refills, Maintenance, 06/25/22 15:48:00 EST, REC Powder, [facility] #[id number], Partial fill upon patient request ifthe prescription is for a schedule II opioid drug.,... Start Date: 06/25/22 Status: Ordered MiraLax oral powder for reconstitution = 17 Gm, By Mouth, Daily, dissolve in water before taking, # 255 Gm, 0 Refills, Maintenance, 12/20/22 9:10:00 EDT, REC Powder, [facility] #[id number], Partial fill upon patient request if the prescription is for a schedule II opioid drug., 17 Gm... Start Date: 12/20/22 Status: Ordered MiraLax oral powder for reconstitution = 17 Gm, By Mouth, Daily, dissolve in water before taking. Use daily until regular bowel movements., # 255 Gm, 4 Refills, Maintenance, 11/15/22 12:51:00 EDT, REC Powder, [facility] #[id number], Partial fill upon patient request if the [...] capsule, 0 Refills, Maintenance, 12/20/22 9:10:00EDT, Capsule, [facility] #[id number], Partial fill upon patient request if the prescription isfor a schedule II opioid drug., 168, cm, 12/20/22 8... Start Date: 12/20/22 Status: Ordered Tylenol 325 mg oral tablet 975 mg, 3, tablet, By Mouth, Every 8 hours, # 60 tablet, Refills 0, Tot. Refills 0, Maintenance, 12/20/22 9:10:00 EDT, Route to Pharmacy Electronically, [facility] #[id number], Partial fill uponpatient request if the prescription is for a schedu... Start Date: 12/20/22 Status: Ordered Unisom 25 mg oral tablet 1 tablet = 25 mg, By Mouth, Daily at bedtime, PRN for sleep, # 32 tablet, 0 Refills, Maintenance, 07/03/22 5:15:00 EST, Tablet, [facility] #[id number], Partial fill upon patient request if the [...] of placental abruption Confirmed Active Confirmed Active 536[address] then 3 miscarriages Social History Social History Type Response Smoking Status Never (less than 100 in lifetime) entered on: 05/22/22 Sex Patient Care team information Care Team Personnel Name: Not on Staff, PCP Position: [facility] Physician (General Medicine) Member Role: PCP Care Team Related Persons Name: RUDY WILKINS GIRL Address: [id number] Address: home [address] [address] Name: KEI DUNCAN Address: home [address] [address]
--- OUTSIDE RECORDS SUMMARY | 2023-03-26 00:45 | XMS_ITS | Continuity of Care Document ---
Author Name Unknown Organization [facility] ter Address [address] [place] [id number]- Care Team Providers Care Toddler Caregiver Name Role Phone Not on Staff, PCP Primary Care Physician Unavail able Encounter [facility] Date(s): 11/18/22 - 11/19/[address] [address]- Discharge Disposition: A-D/C Home Attending Physician: Rosemarie [...] Replace Required Details, Route to Pharmacy Electronically, [facility] #[id number], Partial fill upon p... Start Date: 08/30/22 Status: Ordered docusate sodium 100 mg oral capsule 1 capsule = 100 mg, By Mouth, 2 times a day, PRN as needed for constipation, # 20 capsule, 2 Refills, Maintenance, 11/15/22 12:51:00 EDT, Capsule, [facility] #[id number], Partial fill upon patient request if the prescription is for a schedule II... Start Date: 11/15/22 Status: Ordered famotidine 20 mg oral tablet 20 mg, 1, tablet, By Mouth, 2 times a day, Take twice daily for acid reflux and to help with nauseaand vomiting., # 60 tablet, Refills 2, Tot. Refills 2, Maintenance, 10/03/22 15:40:00 EDT, Route toPharmacy Electronically, [facility] #[id number]... Start Date: 10/03/22 Status: Ordered ferrous sulfate 325 mg oral tablet 1 tablet = 325 mg, By Mouth, Daily, # 90 tablet, 1 Refills, Maintenance, 11/02/22 7:39:00 EDT, Tablet, [facility] #[id number], Partial fill upon patient request if the prescription is for a schedule II opioid drug., 168, cm, 10/26/22 13:03:00 EDT... Start Date: 11/02/22 Status: Ordered ferrous sulfate 325 mg oral tablet 1 tablet = 325 mg, By Mouth, Every other day, # 90 tablet, 0 Refills, Maintenance, 10/01/22 22:08:00 EDT, Tablet, [facility] #[id number], Partial fill upon patient request if the [...] mL, 1 Refills, Maintenance, 11/16/22 16:15:00 EDT, [facility] #[id number], Partial fill upon patient request if the prescription is for a schedule II opioid drug. This replaces p... Start Date: 11/16/22 Status: Ordered Lantus Solostar Pen 100 units/mL subcutaneous solution = 45 units, Subcutaneous Injection, Daily at bedtime, # 15 mL, 0 Refills, Maintenance, 10/22/22 14:12:00 EDT, Solution, [facility], Partial fill upon patient request if the prescriptionis for a schedule II opioid drug., 168, cm, ... Start Date: 10/22/22 Status: Ordered Lantus Solostar Pen 100 units/mL subcutaneous solution = 47 units, Subcutaneous Injection, Daily at bedtime, # 15 mL, 1 Refills, Maintenance, 11/16/22 16:15:00 EDT, Solution, [facility] #[id number], Partial fill upon patient request if the prescription is for a schedule II opioid drug. This replaces... Start Date: 11/16/22 Status: Ordered metroNIDAZOLE 500 mg oral tablet 1 tablet = 500 mg, By Mouth, Every 12 hours, for 7 days, # 14 tablet, 0 Refills, Acute 11/26/22 9:46:00 EDT, 11/19/22 9:46:00 EDT, Tablet, [facility] #[id number], Partial fill upon patient request if the prescription is for a schedule II opioid d... Start Date: 11/19/22 Stop Date: 11/26/22 Status: Ordered MiraLax oral powder for reconstitution = 17 Gm, By Mouth, Daily, Take daily as needed for constipation, # 255 Gm, 1 Refills, Maintenance, 06/25/22 15:48:00 EST, REC Powder, [facility] #[id number], Partial fill upon patient request ifthe prescription is for a schedule II opioid drug.,... Start Date: 06/25/22 Status: Ordered MiraLax oral powder for reconstitution = 17 Gm, By Mouth, Daily, dissolve in water before taking. Use daily until regular bowel movements., # 255 Gm, 4 Refills, Maintenance, 11/15/22 12:51:00 EDT, REC Powder, [facility] #[id number], Partial fill upon patient request if the prescriptio... Start Date: 11/15/22 Status: Ordered ondansetron 4 mg oral tablet 1 tablet = 4 mg, By Mouth, Every 6 hours, # 12 tablet, 1 Refills, Maintenance, 05/27/22 21:28:00 EST, Tablet, [facility] #[id number], Partial fill upon patient request if the [...] 0 Refills, Maintenance, 07/03/22 5:15:00 EST, Tablet, [facility] #[id number], Partial fill upon patient request if the [...] and vomiting in Confirmed Active Confirmed Active [address] then 3 miscarriages Results Orders for Microbiology Reports Name Date Urine Culture (Culture Urine) 11/18/22 Microbiology Reports TEST:Urine Culture STATUS:Auth (Verified) BODY SITE: SOURCE:URINE COLLECTED DATE/TIME:11/18/22 9:50 PM Urine Culture SPECIMEN DESCRIPTION : URINE CLEAN CATCH/MIDSTREAM SPECIAL REQUESTS : NONE CULTURE : Mixed bacterial migdalia, indicative of urogenital contamination. REPORT STATUS : FINAL 11/19/2022 Vital Signs Most recent to oldest [Reference Range]: 1 2 Weight 90.5 kg (11/18/22 9:31 PM) Oxygen Saturation [94-100 %] 99 % (11/18/22 9:51 PM) 99 % (11/18/22 9:32 PM) Blood Pressure [90-138/55-84 mm Hg] 111/ 61mm Hg (11/18/22 9:32 PM) Respiratory Rate [16-30 br/min] 18 br/mi n (11/18/22 9:31 PM) Temperature [96.8-100.4 DegF] 98.2 DegF (11/18/22 9:31 PM) Mode of Delivery (Oxygen) Room air (11/18/22 9:31 PM) Blood pressure sites Arm, right (11/18/22 9:31 PM) Temperature Route Oral (11/18/22 9:31 PM) Weight Obtained Via Standing scale (11/18/22 9:31 PM) Social History Social History Type Response Smoking Status Never (less than 100 in lifetime) entered on: 05/22/22 Sex Note * Rafa RICE, Rowena: PERFORM Event Display: Discharge/Transfer Note Hospital Authored Date: [id number] Nursing Discharge Note Entered On: 11/19/2022 1:48 EDT Performed On: 11/19/2022 1:47 EDT by Rowena Craig RN Nursing Discharge Note 2 Discharge Time : 11/19/2022 1:30 EDT Discharge Level of Care at Discharge : Home/Alf/Foster Care Accounting Methods Analyst Utilized : No Patient Left Unit Via : Ambulatory Patient Accompanied Off Unit with : Significant other, Responsible adult DC Instructions Provided & Signed by Pt : Yes Patient Understands D/C Instructions : Yes Verbalized Understanding of D/C Plan By : Patient, Significant other Patient Instructions Discharge Signed : Yes Did Pt have Specialty Bed or Wound Vac : No Rowena Craig RN - 11/19/2022 1:47 EDT Caregiver Notification Patient has a Designated Caregiver : No Rowena Craig RN - 11/19/2022 1:47 EDT * Kim RICE, Breann Parry: PERFORM Event Display: Patient Education/Instruction Authored Date: [id number] Inpatient Adult Discharge Instructions [address] [address] Name: RUDY ORDAZ : 2000 Visit: 11/18/2022 21:08:00 Current Date: 11/19/2022 00:25 Account: [id number] Inpatient Adult Discharge Instructions We would like [...] and their families. Surveys are administered by [employer] ?? If further treatment with your primary care physician or another doctor is recommended, it is important for you to keep the appointment. Call your primary care physician or return to the Emergency Department immediately if your condition worsens, fails to improve, or new symptoms develop. If you need to find a doctor, you can call [facility] [employer] for a referral at [phone] or toll free at [phone]) or log in to [email or web address].. ?? You can view and manage your care through the patient portal or by using a health care [facility] of your choosing. [employer] is a website that allows you to securely view your medical information including your hospital discharge summary, office visit summaries, medications and follow-up visits. You can also request appointments, renew medications, and request access to your medical information using a health care [facility] of your choosing, or just ask a question. You can enroll at [email or web address] or register during your next office visit. You have been discharged from [facility], Patient Care Unit: [id number]. If you have any questions regarding these instructions after you leave, please call us and we will be happy to assist you. [facility] Your Care Team Attending Physician Rosemarie Hearn DO Tests Performed Below is a partial list of the tests performed during your hospitalization. You may have had other tests and procedures not included in this list. Please discuss all test results with your provider. Fibronectin Urinalysis Complete Primary Care Provider Not on Staff, PCP Advance Directive Health Care Proxy on File No Patient has a Designated Caregiver: No Discharge Vitals Temperature: 98.2 DegF Weight: 90.5 kg Respiratory Rate: 18 br/min ?? Systolic Blood Pressure: 111 mm Hg ?? Diastolic Blood Pressure: 61 mm Hg ?? Oxygen Saturation: 99 % ?? Studies Pending All tests and labs ordered during this hospital stay have been completed unless listed below. Please discuss all pending results with your provider listed above in these instructions. ?? Chlamydia/N. Gonorrhoeae TMA (NAAT) Group B Strep by PCR Urine Culture (Culture Urine) What to do next Instructions From Your Doctor Discharge Orders Scheduled Follow-Up Appointments 2022 4:20 PM EDT ?? With: Robson Jay MD Where: [facility] [address] [place] [id number]- Status: Pending 2022 1:40 PM EDT ?? Where: [facility] [address] [place] [address]- Status: Pending 2022 2:00 PM EDT ?? With: Phoebe Gutiérrez MD Where: [facility] [address] [place] [id number]- Status: Pending 2022 1:40 PM EDT ?? Where: [facility] [address] [place] [phone]- Status: Pending 2022 2:40 PM EDT ?? With: Phoebe Gutiérrez MD Where: [address] [address]- Status: Pending 2022 4:00 PM EDT ?? With: Zaida Ashraf MD Where: [address] [address]- Status: Pending 2022 3:00 PM EDT ?? With: Zaida Ashraf MD Where: [facility] [address] [address]- Status: Pending You Need to Schedule the Following Appointments Follow Up with??[facility] [phone] Discharge Medications EL MAYLINRUDY GRAY :2000 Visit Date:11/18/2022 Medications: Please continue your medications until treatment is completed or stopped by your provider. Medications not listed below should be discontinued. Discuss any questions related to medications with your provider. What How Much When Why Instructions Next Dose Unchanged Aspirin (aspirin 81 mg oral delayed releasetablet) See instructions History of gestational diabetes 2 tablet By Mouth Daily at bedtime ?? Unchanged Docusate (docusate sodium 100 mg oral capsule) 1 capsule Oral Twice a day as needed for as needed for constipation Unchanged Doxylamine (Unisom 25 mg oral tablet) 1 tab(s) Oral Daily at Bedtime as needed for for sleep Unchanged Durable Medical Equipment (Alcohol Wipes) See instructions glucose monitoring 4 times daily during ?? Unchanged Durable Medical Equipment (Freestyle Lite Lancets) See instructions glucose monitoring 4 times daily during ?? Unchanged Durable Medical Equipment (Freestyle Lite Monitor) See instructions glucose monitoring 4 times daily during ?? Unchanged Durable Medical Equipment (Freestyle Lite Test Strips) See instructions glucose monitoring 4 times daily during ?? Unchanged Famotidine (famotidine 20 mg oral tablet) 1 tab(s) Oral Twice a day Take twice daily for acid reflux and to help with nausea and vomiting. ?? Unchanged Ferrous Sulfate (ferrous sulfate 325 mg oral tablet) 1 tab(s) Oral Every other day Unchanged Ferrous Sulfate (ferrous sulfate 325 mg oral tablet) 1 tab(s) Oral Daily Unchanged Insulin Glargine (Lantus Solostar Pen 100 units/ mL subcutaneous solution) 47 unit(s) Subcutaneous Injection Daily at Bedtime Gestational diabetes Unchanged Insulin Glargine (Lantus Solostar Pen 100 units/ mL subcutaneous solution) 45 unit(s) Subcutaneous Injection Daily at Bedtime Unchanged Insulin Lispro (Insulin Lispro KwikPen 100 units/ mL injectable solution) 20 unit(s) Subcutaneous Infusion 3 times a day before meals Gestational diabetes Unchanged Multivitamin, ( Multivitamins with Folic Acid 1 mg oral tablet) 1 tab(s) Oral Daily Unchanged Ondansetron (ondansetron 4 mg oral tablet) 1 tab(s) Oral Every 6 hours Unchanged Pantoprazole (pantoprazole 20 mg oral delayed release tablet) 1 tab(s) Oral Daily Unchanged Polyethylene Glycol 3350 (MiraLax oral powder for reconstitution) 17 gram Oral Daily Take daily as needed for constipation ?? Unchanged Polyethylene Glycol 3350 (MiraLax oral powder for reconstitution) 17 gram Oral Daily dissolve in water before taking. Use daily until regular bowel movements. ?? Test Results Below is a partial list of the most recent Laboratory test results done prior to this discharge. You may have had other tests and procedures not included in this list. Please discuss all test resultswith your provider. Fibronectin (11/18/2022) ??? Fibronectin - NEGATIVE Urinalysis Complete (11/18/2022) ???Appear/Color, Urine - YELLOW???Specific Pease, Urine - 1.027???pH, Urine - 6.5???Albumin, Urine - 1+???Glucose, Urine - NEGATIVE???Ketones, Urine - NEGATIVE???Bilirubin, Urine - NEGATIVE???Hemoglobin, Urine - NEGATIVE???Nitrite, Urine - NEGATIVE???Leukocyte, Urine - 3+???Urobilinogen - NORMAL???WBC's, Urine - 18 /HPF???RBC's, Urine - 1 /HPF???Bacteria - HEAVY???Squamous Epith - 36 /HPF???Amorphous Crystals - SLIGHT???Calcium Oxal - SLIGHT???Mucus - MODERATE Allergies (NKA means No Known Allergies) No Known Medication Allergies Problems Active Problems??(9) Acid reflux?? Constipation?? Frequent headaches?? H/O gestational diabetes in prior , currently ?? History of placental abruption?? Nausea and vomiting in ? 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 Education Materials Below is the list of Educational Leaflet Providered with your Discharge Instructions. Vaginal Infection: Bacterial Vaginosis?? Bacterial Vaginosis?? Premature Labor?? Kick Counts?? : Your Third Trimester Changes?? Adapting to : Third Trimester?? Valuables and Belongings I fully understand and agree that [facility] accepts no responsibility for all my personal [...] are strongly encouraged to quit. Please call [facility] [employer] at [phone] or [phone] ([phone]) or log in to [email or web address] for referrals to smoking cessation programs. ?? 717 Suicide & Crisis Lifeline is available 26/11 if you or someone you know needs to find a reason to keep living. By calling 614 you'll be connected to a skilled, trained counselor at a crisis center in your area. INPATIENT DISCHARGE INSTRUCTIONS SIGNATURE PAGE RUDY WILKINS Location:[facility] Registration Date and Time:11/18/2022 21:08 EDT Primary Care Physician: Not on Staff, PCP Attending Physician: Rosemarie Hearn DO, I NESTOR RUDY ORDAZ, have received the above patient education materials/instructions and have verbalized understanding. If ambulance or transport services are being used I further acknowledge beinggiven a choice of service. ?? If you need to contact me, please call me at this number: . Patient/Information Resources Director Name: Patient/Information Resources Director Signature: Relationship to Patient: Witness Name/Signature: Date: * Kim RICE, Breann Parry: PERFORM Event Display: Patient Education Leaflets Authored Date: [id number] Vaginal Infection: Bacterial Vaginosis ?? [address] Vaginal Infection: Bacterial Vaginosis Both good and bad bacteria are present in a healthy vagina. Bacterial vaginosis (BV) occurs when these bacteria get out of balance. The numbers of good bacteria decrease. This allows the numbers of bad bacteria to increase and cause BV. BV is not a serious problem in most cases. Causes of bacterial vaginosis The cause of BV is not clear. Douching may lead to it. Having sex with a new partner or more than??one partner makes it more likely. ?? Symptoms of bacterial vaginosis Symptoms of BV vary for each person. Some people have few symptoms or none at all. If symptoms are present, they can include: ??? Thin, milky white or cheney or sometimes green discharge ??? Unpleasant???fishy?? odor ??? Irritation, itching, and burning at opening of vagina. This may mean it's caused by more than one type of bacteria. ??? Burning or irritation with sex or when you pee. This may mean it's caused by more than one type of bacteria. ?? Diagnosing bacterial vaginosis Your healthcare provider will ask about your symptoms and health history. They will also do a pelvic exam. This is an exam of your vagina and cervix. They may take a sample of vaginal fluid or discharge. This sample is checked for signs of BV. ?? Treating bacterial vaginosis BV is often treated with antibiotics. They may be given as a pill you take by mouth or as a vaginalcream. To use these medicines: ??? Be sure to take all of your medicine, even if your symptoms go away. ??? If you???re taking antibiotic pills, don't drink alcohol until you???re finished with all of your medicine. ??? If you???re using vaginal cream, apply it as directed. Be aware that the cream may make condoms and diaphragms less effective. ??? Call your healthcare provider if symptoms don't go away within 4 days of starting treatment. Also call if you have a reaction to the medicine. ?? Why treatment matters BV should be treated even if you have no symptoms or your symptoms are mild. Untreated BV can lead to health problems such as: ??? Increased risk for delivery if you???re ??? Increased risk for complications after surgery on the reproductive organs ??? Possible increased risk for pelvic inflammatory disease (PID) ?? Last Reviewed Date: 2021 ?? 1216-7416 [employer]. All rights reserved. This information is not intended as a substitute for professional medical care. Always follow your healthcare professional's instructions. ?? * Kim RICE, Breann Parry: PERFORM Event Display: Patient Education Leaflets Authored Date: [id number] Bacterial Vaginosis ?? [id number] Bacterial Vaginosis You have a vaginal infection called bacterial vaginosis (BV). Both good and bad bacteria are present in a healthy vagina. BV occurs when these bacteria get out of balance. The number of bad bacteria increase. And the number of good bacteria decrease. BV is linked with sexual activity, but it's not a sexually transmitted infection (STI). BV may or may not cause symptoms. If symptoms do occur, they can include: ??? Thin, cheney, milky-white, or sometimes green discharge ??? Unpleasant odor or ???fishy?? smell ??? Itching, burning, or pain in or around the vagina It's not known what causes BV, but certain factors can make the problem more likely. These can include: ??? Douching ??? Spermicides ??? Use of antibiotics ??? Change in hormone levels with , , or menopause ??? Having sex with a new partner ??? Having sex with more than one partner BV will sometimes go away on its own. But treatment is often advised. This is because untreated BV can raise the risk of more serious health problems, such as: ??? Pelvic inflammatory disease (PID) ??? delivery (giving to a baby early if you???re ) ??? HIV and some other sexually transmitted infections (STIs) ??? Infection after surgery on the reproductive organs Home care General care ??? BV is most often treated with medicines called antibiotics. These may be given as pills or as avaginal cream.??If antibiotics are prescribed, be sure to use them exactly as directed. And complete all of the medicine, even if your symptoms go away. ??? Don't douche or have sex during treatment.??? If you have sex with a female partner, ask your healthcare provider if she should also be treated. Prevention ??? Don't douche. ??? Don't have sex. If you do have sex, take steps to lower your risk:o Use condoms when having sex. o Limit the number of sex partners you have. ?? Follow-up care Follow up with your healthcare provider, or as advised. ?? When to get medical advice Call your healthcare provider right away if any of the following occur: ??? You have a fever of??100.4??F (38??C)??or higher, or as directed by your healthcare provider. ??? Your symptoms get worse, or they don???t go away within a few days of starting treatment. ??? You have new pain in the lower belly??or pelvic region. ??? You have side effects that bother you or a reaction to the pills or cream you???re prescribed. ??? You or any of your sex partners have new symptoms, such as a rash, jointpain, or sores. ?? Last Reviewed Date: 2022 ?? [employer]. All rights reserved. This information is not intended as a substitute for professional medical care. Always follow your healthcare professional's instructions. ?? * Kim RICE, Breann Parry: PERFORM Event Display: Patient Education Leaflets Authored Date: [id number] Premature Labor ?? [id number] Premature Labor Premature labor ( labor) is when symptoms of labor occur before 37 weeks of . (Thisis 3 weeks before your due date.) Premature labor can lead to premature delivery. This means givingbirth to your baby early. Babies need at least 37 weeks of for all the organs to develop normally. The earlier the delivery, the greater the risks to the baby. In most cases, the cause of premature labor is unknown. But certain factors may make the problem more likely. These include: ??? History of premature labor with other pregnancies ??? Smoking ??? Alcohol or substance abuse ??? Low prepregnancy weight or weight gain during ??? Short time period between pregnancies ??? Being with twins, triplets, or more ??? History of certain types of surgery on the cervix or uterus ??? Having a short cervix ??? Certain infections There are a number of other risk factors. Ask your healthcare provider to help you understand the risk factors specific to your case. Then find out what you can do to control or reduce them. Contractions are one of the main signs of premature labor. A contraction is different from cramping. It may feel painful and the belly (abdomen) may get hard. It can last from a few seconds to a few minutes. Some women may feel only a sense of pressure in the belly, thighs, rectum, or vagina. Some may feel only the hardening of the uterus without pain or pressure. Or there may be a constant pain in the lower back, which spreads forward toward the belly. Premature labor is often treated with medicines.??A hospital stay may be needed. If labor doesn't progress and you and your baby are both healthy, you may be discharged to continue care at home. Home care ??? Ask your provider any questions you have. Be certain you understand how to care for yourself at home. Also follow all recommendations given by your healthcare providers. ??? Learn the signs of premature labor.??Watch for these signs when you get home. ??? Limit or restrict activities as advised. This may include stopping certain physical activities and cutting back hours at work. ??? Don't do strenuous work as advised by your provider.??Ask family and friends for help with tasks and support at home, if needed. ??? Don???t smoke, drink alcohol, or use other harmful substances. ??? Take steps to reduce stress. ??? Report any unusual symptoms to your provider. ?? Follow-up care Follow up with your healthcare provider directed.??Weekly visits with your provider may be needed. ?? When to seek medical advice Call your healthcare provider right away if any of these occur: ??? Regular or frequent contractions, whether they're painful or not ??? Pressure in the pelvis ??? Pressure in the lower belly or mildcramping in your belly with or without diarrhea ??? Constant low, dull backache ??? Gush or slow leaking of water from your vagina ??? Change in vaginal discharge (watery, mucus, or bloody) ??? Any vaginal bleeding ??? Decreased movement of your baby ?? Last Reviewed Date: 2021 ?? 9513-5614 [employer]. All rights reserved. This information is not intended as a substitute for professional medical care. Always follow your healthcare professional's instructions. ?? Patient Care team information Care Team Personnel Name: Not on Staff, PCP Position: [facility] Physician (General Medicine) Member Role: PCP Name: Rowena Craig RN Position: [facility] OB RN Member Role: OB RN Care Team Related Persons Name: SHAR DUNCANGIA Address: [address] [address]
--- OUTSIDE RECORDS SUMMARY | 2023-03-26 00:45 | XMS_ITS | Continuity of Care Document ---
Author Name Unknown Organization [facility] Address [address] [place] [id number]- Care Team Providers Care Cuff Slitter Name Role Phone Not on Staff, PCP Primary Care Physician Unavail able Encounter [facility] Date(s): 10/12/22 - 11/11/22 [facility] [address] [address]- Allergies, Adverse Reactions, Alerts No Known Medication [...] Replace Required Details, Route to Pharmacy Electronically, [facility] #[id number], Partial fill upon p... Start Date: 08/30/22 Status: Ordered famotidine 20 mg oral tablet 20 mg, 1, tablet, By Mouth, 2 times a day, Take twice daily for acid reflux and to help with nauseaand vomiting., # 60 tablet, Refills 2, Tot. Refills 2, Maintenance, 10/03/22 15:40:00 EDT, Route toPharmacy Electronically, [facility] #[id number]... Start Date: 10/03/22 Status: Ordered ferrous sulfate 325 mg oral tablet 1 tablet = 325 mg, By Mouth, Daily, # 90 tablet, 1 Refills, Maintenance, 11/02/22 7:39:00 EDT, Tablet, [facility] #[id number], Partial fill upon patient request if the prescription is for a schedule II opioid drug., 168, cm, 10/26/22 13:03:00 EDT... Start Date: 11/02/22 Status: Ordered ferrous sulfate 325 mg oral tablet 1 tablet = 325 mg, By Mouth, Every other day, # 90 tablet, 0 Refills, Maintenance, 10/01/22 22:08:00 EDT, Tablet, [facility] #[id number], Partial fill upon patient request if the [...] Dry Weight Start Date: 10/15/22 Status: Ordered insulin lispro 100 u/ml subcutaneous injection = 15 units, Subcutaneous Injection, 3 times a day with meals, # 10 mL, 0 Refills, Maintenance, 10/22/22 14:12:00 EDT, Solution, [facility], Partial fill upon patient request if the prescription is for a schedule II opioid drug., 168, cm,... Start Date: 10/22/22 Status: Ordered insulin lispro 100 units/mL injectable solution = 18 units, Subcutaneous Injection, 3 times a day before meals, # 10 mL, 0 Refills, Maintenance, 10/26/22 23:16:00 EDT, Solution, [facility], Partial fill upon patient request if the prescription is for a schedule II opioid drug., 168, c... Start Date: 10/26/22 Status: Ordered Lantus Solostar Pen 100 units/mL subcutaneous solution = 45 units, Subcutaneous Injection, Daily at bedtime, # 15 mL, 0 Refills, Maintenance, 10/22/22 14:12:00 EDT, Solution, [facility], Partial fill upon patient request if the prescriptionis for a schedule II opioid drug., 168, cm, ... Start Date: 10/22/22 Status: Ordered MiraLax oral powder for reconstitution = 17 Gm, By Mouth, Daily, Take daily as needed for constipation, # 255 Gm, 1 Refills, Maintenance, 06/25/22 15:48:00 EST, REC Powder, [facility] #[id number], Partial fill upon patient request ifthe prescription is for a schedule II opioid drug.,... 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
--- OUTSIDE RECORDS SUMMARY | 2023-03-26 00:45 | XMS_ITS | Continuity of Care Document ---
Author Name Unknown Organization [facility] Address [address] [place] [address]- Care Team Providers Care Pump Technician Name Role Phone Not on Staff, PCP Primary Care Physician Unavail able Encounter [facility] [place] Date(s): 02/07/23 - 03/09/[address] [address]- Attending Physician: Héctor Zaldivar Admitting Physician: Héctor Zaldivar Referring Physician: AdmtrHéctor Allergies, Adverse Reactions, Alerts No Known Medication [...] Replace Required Details, Route to Pharmacy Electronically, [facility] #[id number], Partial fill upon p... Start Date: 08/30/22 Status: Ordered docusate sodium 100 mg oral capsule 1 capsule = 100 mg, By Mouth, 2 times a day, PRN as needed for constipation, # 20 capsule, 2 Refills, Maintenance, 11/15/22 12:51:00 EDT, Capsule, [facility] #[id number], Partial fill upon patient request if the prescription is for a schedule II... Start Date: 11/15/22 Status: Ordered famotidine 20 mg oral tablet 20 mg, 1, tablet, By Mouth, 2 times a day, Take twice daily for acid reflux and to help with nauseaand vomiting., # 60 tablet, Refills 2, Tot. Refills 2, Maintenance, 10/03/22 15:40:00 EDT, Route toPharmacy Electronically, [facility] #[id number]... Start Date: 10/03/22 Status: Ordered Freestyle Lite Lancets See Instructions, # 200 each, Maintenance, glucose monitoring 4 times daily during , 10/15/22 11:28:00 EDT, Supply, 168, cm, 10/03/22 14:55:00 EDT, Height, 86, kg, 10/01/22 20:23:00 EDT, DryWeight Start Date: 10/15/22 Status: Ordered ibuprofen 600 mg oral tablet 600 mg, 1, tablet, By Mouth, 4 times a day, # 40 tablet, Refills 0, Tot. Refills 0, Maintenance, 02/04/23 21:07:00 EDT, Route to Pharmacy Electronically, [facility] #[id number], Partial fill upon patient request if the prescription is for a sched... Start Date: 02/04/23 Status: Ordered ibuprofen 600 mg oral tablet 600 mg, 1, tablet, By Mouth, Every 6 hours, # 40 tablet, Refills 0, Tot. Refills 0, Maintenance, 12/20/22 9:10:00 EDT, Route to Pharmacy Electronically, [facility] #[id number], Partial fill uponpatient request if the prescription is for a schedu... Start Date: 12/20/22 Status: Ordered MiraLax oral powder for reconstitution = 17 Gm, By Mouth, Daily, Take daily as needed for constipation, # 255 Gm, 1 Refills, Maintenance, 06/25/22 15:48:00 EST, REC Powder, [facility] #[id number], Partial fill upon patient request ifthe prescription is for a schedule II opioid drug.,... Start Date: 06/25/22 Status: Ordered MiraLax oral powder for reconstitution = 17 Gm, By Mouth, Daily, dissolve in water before taking, # 255 Gm, 0 Refills, Maintenance, 12/20/22 9:10:00 EDT, REC Powder, [facility] #[id number], Partial fill upon patient request if the prescription is for a schedule II opioid drug., 17 Gm... Start Date: 12/20/22 Status: Ordered MiraLax oral powder for reconstitution = 17 Gm, By Mouth, Daily, dissolve in water before taking. Use daily until regular bowel movements., # 255 Gm, 4 Refills, Maintenance, 11/15/22 12:51:00 EDT, REC Powder, [facility] #[id number], Partial fill upon patient request if the prescriptio... Start Date: 11/15/22 Status: Ordered ondansetron 8 mg oral tablet, disintegrating 1 tablet = 8 mg, By Mouth, 3 times a day, PRN Nausea & Vomiting, # 9 tablet, 0 Refills, Maintenance, 02/04/23 21:08:00 EDT, DIS Tablet, [facility] #[id number], Partial fill upon patient request if the prescription is for a schedule II opioid drug... Start Date: 02/04/23 Status: Ordered Multivitamins with Folic Acid 1 [...] capsule, 0 Refills, Maintenance, 12/20/22 9:10:00EDT, Capsule, [facility] #[id number], Partial fill upon patient request if the prescription isfor a schedule II opioid drug., 168, cm, 12/20/22 8... Start Date: 12/20/22 Status: Ordered Sprintec 0.25 mg-35 mcg oral tablet 1 tablet, By Mouth, Daily, Maintenance, # 28 tablet, 12 Refills, Maintenance, 02/07/23 12:19:00 EDT, [facility] #[id number], Partial fill upon patient request if the prescription is for a schedule II opioid drug., 1 tablet By Mouth Daily,x28 days... Start Date: 02/07/23 Stop Date: 02/06/24 Status: Ordered Tylenol 325 mg oral tablet 975 mg, 3, tablet, By Mouth, Every 8 hours, # 60 tablet, Refills 0, Tot. Refills 0, Maintenance, 12/20/22 9:10:00 EDT, Route to Pharmacy Electronically, [facility] #[id number], Partial fill uponpatient request if the prescription is for a schedu... Start Date: 12/20/22 Status: Ordered Unisom 25 mg oral tablet 1 tablet = 25 mg, By Mouth, Daily at bedtime, PRN for sleep, # 32 tablet, 0 Refills, Maintenance, 07/03/22 5:15:00 EST, Tablet, [facility] #[id number], Partial fill upon patient request if the prescription is for a schedule II opioid drug., 168,... Start Date: 07/03/22 Status: Ordered Problem List Condition Confirmation Course Effective Dates Status Health St atus Informant Constipation Confirmed Active Social History Social History Type Response Smoking Status Never (less than 100 in lifetime) entered on: 05/22/22 Sex Patient Care team information Care Team Personnel Name: Not on Staff, PCP Position: S Physician (General Medicine) Member Role: PCP Care Team Related Persons Name: KEI DUNCAN Address: home [address] [place] [id number] Name: DILEEP DUNCAN Address: [id number] Address: home [address] [place] [address]
--- OUTSIDE RECORDS SUMMARY | 2023-03-26 00:45 | XMS_ITS | Continuity of Care Document ---
Author Name Unknown Organization [facility] Address [address] [place] [id number]- Care Team Providers Care Triage Technician Name Role Phone Not on Staff, PCP Primary Care Physician Unavail able Encounter [facility] Date(s): 11/09/22 - 01/19/23 [facility] [address] [address]- Attending Physician: Not on Staff, Attending MD [...] Replace Required Details, Route to Pharmacy Electronically, [facility] #[id number], Partial fill upon p... Start Date: 08/30/22 Status: Ordered docusate sodium 100 mg oral capsule 1 capsule = 100 mg, By Mouth, 2 times a day, PRN as needed for constipation, # 20 capsule, 2 Refills, Maintenance, 11/15/22 12:51:00 EDT, Capsule, [facility] #[id number], Partial fill upon patient request if the prescription is for a schedule II... Start Date: 11/15/22 Status: Ordered famotidine 20 mg oral tablet 20 mg, 1, tablet, By Mouth, 2 times a day, Take twice daily for acid reflux and to help with nauseaand vomiting., # 60 tablet, Refills 2, Tot. Refills 2, Maintenance, 10/03/22 15:40:00 EDT, Route toPharmacy Electronically, [facility] #[id number]... Start Date: 10/03/22 Status: Ordered Freestyle [...] 12/20/22 9:10:00 EDT, Route to Pharmacy Electronically, [facility] #[id number], Partial fill uponpatient request if the prescription is for a schedu... Start Date: 12/20/22 Status: Ordered MiraLax oral powder for reconstitution = 17 Gm, By Mouth, Daily, Take daily as needed for constipation, # 255 Gm, 1 Refills, Maintenance, 06/25/22 15:48:00 EST, REC Powder, [facility] #[id number], Partial fill upon patient request ifthe prescription is for a schedule II opioid drug.,... Start Date: 06/25/22 Status: Ordered MiraLax oral powder for reconstitution = 17 Gm, By Mouth, Daily, dissolve in water before taking, # 255 Gm, 0 Refills, Maintenance, 12/20/22 9:10:00 EDT, REC Powder, [facility] #[id number], Partial fill upon patient request if the prescription is for a schedule II opioid drug., 17 Gm... Start Date: 12/20/22 Status: Ordered MiraLax oral powder for reconstitution = 17 Gm, By Mouth, Daily, dissolve in water before taking. Use daily until regular bowel movements., # 255 Gm, 4 Refills, Maintenance, 11/15/22 12:51:00 EDT, REC Powder, [facility] #[id number], Partial fill upon patient request if the [...] capsule, 0 Refills, Maintenance, 12/20/22 9:10:00EDT, Capsule, [facility] #[id number], Partial fill upon patient request if the prescription isfor a schedule II opioid drug., 168, cm, 12/20/22 8... Start Date: 12/20/22 Status: Ordered Tylenol 325 mg oral tablet 975 mg, 3, tablet, By Mouth, Every 8 hours, # 60 tablet, Refills 0, Tot. Refills 0, Maintenance, 12/20/22 9:10:00 EDT, Route to Pharmacy Electronically, [facility] #[id number], Partial fill uponpatient request if the prescription is for a schedu... Start Date: 12/20/22 Status: Ordered Unisom 25 mg oral tablet 1 tablet = 25 mg, By Mouth, Daily at bedtime, PRN for sleep, # 32 tablet, 0 Refills, Maintenance, 07/03/22 5:15:00 EST, Tablet, [facility] #[id number], Partial fill upon patient request if the [...] of placental abruption Confirmed Active Confirmed Active 12263 then 3 miscarriages Social History Social History Type Response Smoking Status Never (less than 100 in lifetime) entered on: 05/22/22 Sex Patient Care team information Care Team Personnel Name: Not on Staff, PCP Position: S Physician (General Medicine) Member Role: PCP Care Team Related Persons Name: KEI DUNCAN Address: home [address] [place] [address] Name: DILEEP DUNCAN Address: [id number] Address: home [address] [place] [address]
--- OUTSIDE RECORDS SUMMARY | 2023-03-26 00:45 | XMS_ITS | Continuity of Care Document ---
Author Name Unknown Organization [facility] Address [address] [place] [address]- Care Team Providers Care Food And Nutrition Supervisor Name Role Phone Marielle Hayes MD Primary Care Physician Encounter [facility] [place] [place] Date(s): 02/04/23 - 02/04/[address] [address]- Discharge Disposition: A-D/C Home Attending Physician: Andriy Driscoll MD Admitting Physician: Andriy Driscoll MD Referring Physician: Not on Staff, Referring [...] Replace Required Details, Route to Pharmacy Electronically, [facility] #[id number], Partial fill upon p... Start Date: 08/30/22 Status: Ordered docusate sodium 100 mg oral capsule 1 capsule = 100 mg, By Mouth, 2 times a day, PRN as needed for constipation, # 20 capsule, 2 Refills, Maintenance, 11/15/22 12:51:00 EDT, Capsule, [facility] #[id number], Partial fill upon patient request if the prescription is for a schedule II... Start Date: 11/15/22 Status: Ordered famotidine 20 mg oral tablet 20 mg, 1, tablet, By Mouth, 2 times a day, Take twice daily for acid reflux and to help with nauseaand vomiting., # 60 tablet, Refills 2, Tot. Refills 2, Maintenance, 10/03/22 15:40:00 EDT, Route toPharmacy Electronically, [facility] #[id number]... Start Date: 10/03/22 Status: Ordered [...] 02/04/23 21:07:00 EDT, Route to Pharmacy Electronically, [facility] #[id number], Partial fill upon patient request if the prescription is for a sched... Start Date: 02/04/23 Status: Ordered ibuprofen 600 mg oral tablet 600 mg, 1, tablet, By Mouth, Every 6 hours, # 40 tablet, Refills 0, Tot. Refills 0, Maintenance, 12/20/22 9:10:00 EDT, Route to Pharmacy Electronically, [facility] #[id number], Partial fill uponpatient request if the prescription is for a schedu... Start Date: 12/20/22 Status: Ordered MiraLax oral powder for reconstitution = 17 Gm, By Mouth, Daily, Take daily as needed for constipation, # 255 Gm, 1 Refills, Maintenance, 06/25/22 15:48:00 EST, REC Powder, [facility] #[id number], Partial fill upon patient request ifthe prescription is for a schedule II opioid drug.,... Start Date: 06/25/22 Status: Ordered MiraLax oral powder for reconstitution = 17 Gm, By Mouth, Daily, dissolve in water before taking, # 255 Gm, 0 Refills, Maintenance, 12/20/22 9:10:00 EDT, REC Powder, [facility] #[id number], Partial fill upon patient request if the prescription is for a schedule II opioid drug., 17 Gm... Start Date: 12/20/22 Status: Ordered MiraLax oral powder for reconstitution = 17 Gm, By Mouth, Daily, dissolve in water before taking. Use daily until regular bowel movements., # 255 Gm, 4 Refills, Maintenance, 11/15/22 12:51:00 EDT, REC Powder, [facility] #[id number], Partial fill upon patient request if the prescriptio... Start Date: 11/15/22 Status: Ordered ondansetron 8 mg oral tablet, disintegrating 1 tablet = 8 mg, By Mouth, 3 times a day, PRN Nausea & Vomiting, # 9 tablet, 0 Refills, Maintenance, 02/04/23 21:08:00 EDT, DIS Tablet, [facility] #[id number], Partial fill upon patient request if the [...] capsule, 0 Refills, Maintenance, 12/20/22 9:10:00EDT, Capsule, [facility] #[id number], Partial fill upon patient request if the prescription isfor a schedule II opioid drug., 168, cm, 12/20/22 8... Start Date: 12/20/22 Status: Ordered Tylenol 325 mg oral tablet 975 mg, 3, tablet, By Mouth, Every 8 hours, # 60 tablet, Refills 0, Tot. Refills 0, Maintenance, 12/20/22 9:10:00 EDT, Route to Pharmacy Electronically, [facility] #[id number], Partial fill uponpatient request if the prescription is for a schedu... Start Date: 12/20/22 Status: Ordered Unisom 25 mg oral tablet 1 tablet = 25 mg, By Mouth, Daily at bedtime, PRN for sleep, # 32 tablet, 0 Refills, Maintenance, 07/03/22 5:15:00 EST, Tablet, [facility] #[id number], Partial fill upon patient request if the [...] of placental abruption Confirmed Active Confirmed Active 04419 then 3 miscarriages Results Radiology Reports * Exam Date Time Procedure Performing Provider Status 02/04/23 8:09 PM Chest 2 Views Frontal and Lat Esme Marquez; Pio (Verified) Notes: (Chest 2 Views Frontal and Lat) Reason For Exam: Shortness of Breath, Fever;Other: RESULT: Chest 2 Views Frontal and Lat Chest 2 Views Frontal and Lat Reason: Other:; Shortness of Breath, Fever; Clinical Question(s): Pneumonia COMPARISON: 04/14/2022 FINDINGS: LINES AND TUBES: None. LUNGS AND PLEURA: Clear lungs. Normal pulmonary vascularity. No pleural effusion. No pneumothorax. HEART, MEDIASTINUM AND VARSHA: Heart is normal in size. Normal mediastinal and hilar contour. BONES AND SOFT TISSUES: No acute abnormality. IMPRESSION: No acute abnormality. WSN: [id number] Ordering Physician: Davidson Watson Dictated By: Narciso Miles MD Dictated Date/Time: 02/04/23 8:24 pm Reviewed By: Narciso Miles MD Signed By: Narciso Miles MD Signed Date/Time: 02/04/23 8:24 pm Transcribed By: NANCY Transcribed Date/Time: 02/04/23 8:24 pm Vital Signs Most recent to oldest [Reference Range]: 1 2 3 Height 168 cm (02/04/23 10:00 PM) 168 cm (02/04/23 8:48 PM) 168 cm (02/04/23 4:04 PM) Oxygen Saturation [94-100 %] 100 % (02/04/23 10:00 PM) 99 % (02/04/23 4:04 PM) Pulse Rate [55-90 bpm] 62 bpm (02/04/23 10:00 PM) 74 bpm (02/04/23 4:04 PM) Blood Pressure [90-138/55-84 mm Hg] 114/71mm Hg (02/04/23 10:00 PM) 121/69mm Hg (02/04/23 4:04 PM) Respiratory Rate [16-30 br/min] 20 br/min (02/04/23 10:00 PM) 18 br/min (02/04/23 4:04 PM) Temperature [96.8-100.4 DegF] 98.2 DegF (02/04/23 4:04 PM) Mode of Delivery (Oxygen) Room air (02/04/23 10:00 PM) Room air (02/04/23 4:04 PM) Blood pressure sites Arm, right (02/04/23 10:00 PM) Arm, left (02/04/23 4:04 PM) Temperature Route Oral (02/04/23 4:04 PM) Dry Weight 80.5 kg (02/04/23 10:00 PM) 80.5 kg (02/04/23 8:48 PM) 80.5 kg (02/04/23 4:04 PM) Dry Weight Obtained Via Patient/family s tated (02/04/23 4:04 PM) Social History Social History Type Response Smoking Status Never (less than 100 in lifetime) entered on: 05/22/22 Sex Note * Yamila LINN, Andriy Nelson: PERFORM Event Display: Patient Education Leaflets Authored Date: [id number] Chest Wall Pain: Costochondritis ?? [id number] Chest Wall Pain: Costochondritis The chest pain that you have had today is caused by costochondritis. This condition is caused by aninflammation of the cartilage joining your ribs to your breastbone. It's not caused by heart or lung problems. Your healthcare team has made sure that the chest pain you feel is not from a life threatening cause of chest pain such as heart attack, collapsed lung, blood clot in the lung, tear in theaorta, or esophageal rupture. The inflammation may have been brought on by a blow to the chest, lifting heavy objects, intense exercise, or an illness that made you cough and sneeze a lot. It??often occurs??during times of emotional stress.??It can be painful, but it's not dangerous. It usually goes away in 1 to 2 weeks. But it may happen again. Rarely, a more serious condition may cause symptomssimilar to costochondritis. That???s why it???s important to watch for the warning signs listed below. Home care Follow these guidelines when caring for yourself at home: ??? If you feel that emotional stress is a cause of your condition, try to figure out the sources of that stress. It may not be obvious. Learn ways to deal with the stress in your life. This can include regular exercise, muscle relaxation, meditation, or simply taking time out for yourself. ??? You may use acetaminophen, ibuprofen, or naproxen to control pain, unless another pain medicine was prescribed. If you have liver or kidney disease or ever had a stomach ulcer, talk with your healthcare provider before using these medicines. ???You can also help ease pain by using a hot, wet compress or heating pad. Use this with or without amedicated skin cream that helps relieves pain. ??? Do stretching exercise as advised by your provider. Typically rest is beneficial for the first few days. Avoid strenuous activity that worsens the pain. ??? Take any prescribed medicines as directed. ?? Follow-up care Follow up with your healthcare provider, or as advised. Call 911 Call 911 if any of these occur: ??? A change in the type of pain which feels different, becomes more serious, lasts longer, or spreads into your shoulder, arm, neck, jaw, or back ??? Fainting ??? Shortness of breath or trouble breathing ?? When to get medical advice Call your healthcare provider right away if any of these occur: ??? Pain gets worse when you breathe ??? Weakness or dizziness ??? Cough with dark-colored sputum (phlegm) or blood ??? Fever of 100.4??F (38??C) or higher, or as advised by your provider ?? Last Reviewed Date: 2021 ?? [id number] [employer]. All rights reserved. This information is not intended as a substitute for professional medical care. Always follow your healthcare professional's instructions. ?? Patient Care team information Care Team Personnel Name: Marielle Hayes MD Position: Reference Physician Member Role: PCP Address: Address: [address] [place] [id number] Name: *[facility], ED Attending Position: [facility] ED Attendings Patient Name: Marjorie Escobar Position: [facility] ED TA [facility] Name: Andriy Driscoll MD Position: [facility] ED Medicine MD Member Role: Admitting Physician Address: Address: [address] [place] [id number] Name: Davidson Watson MD Position: [facility] ED Medicine MD Member Role: ED Attending Physician Address: Address: [address] [place] [id number] Name: Rachel Cruz RN Position: [facility] ED RN W/OE and Tasks Member Role: Patient Care Provider Care Team Related Persons Name: KEI DUNCAN Address: home [address] [address] Name: DILEEP DUNCAN Address: [id number] Address: home [address] [address] [place]
--- OUTSIDE RECORDS SUMMARY | 2023-03-26 00:45 | XMS_ITS | Continuity of Care Document ---
Author Name Unknown Organization [facility] ter Address [address] [place] [address]- Care Team Providers Care Ash Worker Name Role Phone Not on Staff, PCP Primary Care Physician Unavail able [place] [facility] [place] - 01/22/[address] [address]- Encounter Diagnosis Spontaneous miscarriage(Final) - 01/22/22 Discharge Disposition: A-D/C Home Attending Physician: Ladonna Yoder MD Admitting Physician: Ladonna Yoder MD Referring Physician: Not on Staff, Referring MD Allergies, Adverse Reactions, Alerts No Known Medication Allergies Medications ibuprofen 800 mg oral tablet 800 mg, 1, tablet, By Mouth, Every 8 hours, # 30 tablet, Refills 0, Tot. Refills 0, Maintenance, 01/22/22 13:08:00 EDT, Route to Pharmacy Electronically, [facility] #[id number], Partial fill upon patient request if the prescription is for a sched... Start Date: 01/22/22 Status: Ordered MorPHINE Inj 4 mg, Injection, IV Push Slowly, Every 3 hours for 7 days, PRN for Pain , Moderate, Routine, 01/22/22 9:01:00 EDT, Stop date 01/29/22 9:00:00 EDT Start Date: 01/22/22 Stop Date: 01/22/22 Status: Discontinued ondansetron 4 mg oral tablet, disintegrating 1 tablet = 4 mg, By Mouth, Every 8 hours, PRN Nausea & Vomiting, # 10 tablet, 0 Refills, Maintenance, 08/05/21 18:51:00 EDT, Tablet, [facility] #[id number], Partial fill upon patient requestif the prescription is for a schedule II opioid drug.,... Start Date: 08/05/21 Status: Ordered Tylenol Extra Strength 500 mg oral tablet 2 tablet = 1,000 mg, By Mouth, Every 8 hours, PRN for pain, # 40 tablet, 0 Refills, Maintenance, 01/22/22 13:08:00 EDT, Tablet, [email or web address] #[id number], Partial fill upon patient request if the prescription is for a schedule II opioid drug., 168,... Start Date: 01/22/22 Status: Ordered Problem List Condition Effective Dates Status Health Status Inform ant Obese class I(Confirmed) Active Vital Signs Most recent to oldest [Reference Range]: 1 2 3 Oxygen Saturation [94-100 %] 98 % (01/22/22 10:37 AM) 100 % (01/22/22 9:54 AM) Pulse Rate [55-90 bpm] 75 bpm (01/22/22 10:37 AM) 69 bpm (01/22/22 9:54 AM) Blood Pressure [90-138/55-84 mm Hg] 125/69mm Hg (01/22/22 10:37 AM) 135/68mm Hg (01/22/22 9:54 AM) Respiratory Rate [16-30 br/min] 16 br/min (01/22/22 10:37 AM) 22 br/min (01/22/22 9:54 AM) 18 br/min (01/22/22 9:20 AM) Temperature [96.8-100.4 DegF] 97.6 DegF (01/22/22 9:54 AM) Mode of Delivery (Oxygen) Room air (01/22/22 10:37 AM) Room air (01/22/22 9:54 AM) Blood pressure sites Arm, left (01/22/22 10:37 AM) Temperature Route Oral (01/22/22 9:54 AM) Social History Social History Type Response Smoking Status Never (less than 100 in lifetime) entered on: 08/05/21 Sex Care Team Personnel Name: Not on Staff, PCP
--- OUTSIDE RECORDS SUMMARY | 2023-03-26 00:45 | XMS_ITS | Continuity of Care Document ---
Author Name Unknown Organization [facility] Address [address] [place] [address]- Care Team Providers Care Mortgage Processor Name Role Phone Not on Staff, PCP Primary Care Physician Unavail able Encounter [facility] [place] Date(s): 07/23/22 - 08/22/[address] [address]- Allergies, Adverse Reactions, Alerts No Known Medication Allergies Medications doxylamine 25 mg oral tablet 1 tablet = 25 mg, By Mouth, Daily at bedtime, PRN for sleep, # 60 tablet, 0 Refills, Maintenance, 05/27/22 22:41:00 EST, Tablet, [facility] #[id number], Partial fill upon patient request if the prescription is for a schedule II opioid drug., 168,... Start Date: 05/27/22 Status: Ordered famotidine 20 mg oral tablet 20 mg, 1, tablet, By Mouth, 2 times a day, Take twice daily for acid reflux and to help with nauseaand vomiting., # 60 tablet, Refills 2, Tot. Refills 2, Maintenance, 06/25/22 15:48:00 EST, Route toPharmacy Electronically, [facility] #[id number]... Start Date: 06/25/22 Status: Ordered MiraLax oral powder for reconstitution = 17 Gm, By Mouth, Daily, Take daily as needed for constipation, # 255 Gm, 1 Refills, Maintenance, 06/25/22 15:48:00 EST, REC Powder, [facility] #[id number], Partial fill upon patient request ifthe prescription is for a schedule II opioid drug.,... Start Date: 06/25/22 Status: Ordered ondansetron 4 mg oral tablet 1 tablet = 4 mg, By Mouth, Every 6 hours, # 12 tablet, 1 Refills, Maintenance, 05/27/22 21:28:00 EST, Tablet, [facility] #[id number], Partial fill upon patient request if the prescription is fora schedule II opioid drug., 168, cm, 05/27/22 12:06... Start Date: 05/27/22 Status: Ordered ondansetron 4 mg oral tablet, disintegrating 1 tablet = 4 mg, By Mouth, Every 8 hours, PRN Nausea & Vomiting, # 30 tablet, 0 Refills, Maintenance, 07/03/22 5:15:00 EST, Tablet, [facility] #[id number], Partial fill upon patient request if the [...] tablet, 1 Refills, Maintenance, 06/25/22 15:25:00 EST, [facility] #[id number], Partial fill upon patient request if theprescription is for a schedule II opioid drug., 168, cm... Start Date: 06/25/22 Status: Ordered Unisom 25 mg oral tablet 1 tablet = 25 mg, By Mouth, Daily at bedtime, PRN for sleep, # 32 tablet, 0 Refills, Maintenance, 07/03/22 5:15:00 EST, Tablet, [facility] #[id number], Partial fill upon patient request if the prescription is for a schedule II opioid drug., 168,... Start Date: 07/03/22 Status: Ordered Vitamin B6 25 mg oral tablet 1 tablet = 25 mg, By Mouth, 3 times a day, # 60 tablet, 0 Refills, Maintenance, 05/27/22 22:41:00 EST, [facility] #[id number], Partial fill upon patient request if the prescription is for a schedule II opioid drug., 168, cm, 05/27/22 12:06:00 EST... Start Date: 05/27/22 Status: Ordered Vitamin B6 50 mg oral tablet 50 mg, 1, tablet, By Mouth, 3 times a day, for 30 days, # 90 tablet, Refills 2, Tot. Refills 2, Acute 10/04/22 15:53:00 EDT, 07/06/22 15:53:00 EST, Route to Pharmacy Electronically, [facility] #[id number], Partial fill upon patient request if the... [...] and vomiting in Confirmed Active Confirmed Active 37019 then 3 miscarriages Social History Social History Type Response Smoking Status Never (less than 100 in lifetime) entered on: 05/22/22 Sex Patient Care team information Care Team Personnel Name: Not on Staff, PCP Position: S Physician (General Medicine) Member Role: PCP Care Team Related Persons Name: KEI DUNCAN Address: home [address] [place] [id number]
--- OUTSIDE RECORDS SUMMARY | 2023-03-26 00:45 | XMS_ITS | Continuity of Care Document ---
Author Name Unknown Organization [facility] Address [address] [place] [address]- Care Team Providers Care Records Management Coordinator Name Role Phone Not on Staff, PCP Primary Care Physician Unavail able [place] [facility] [place] - 01/20/[address] [address]- Allergies, Adverse Reactions, Alerts No Known Medication [...] Replace Required Details, Route to Pharmacy Electronically, [facility] #[id number], Partial fill upon p... Start Date: 08/30/22 Status: Ordered docusate sodium 100 mg oral capsule 1 capsule = 100 mg, By Mouth, 2 times a day, PRN as needed for constipation, # 20 capsule, 2 Refills, Maintenance, 11/15/22 12:51:00 EDT, Capsule, [facility] #[id number], Partial fill upon patient request if the prescription is for a schedule II... Start Date: 11/15/22 Status: Ordered famotidine 20 mg oral tablet 20 mg, 1, tablet, By Mouth, 2 times a day, Take twice daily for acid reflux and to help with nauseaand vomiting., # 60 tablet, Refills 2, Tot. Refills 2, Maintenance, 10/03/22 15:40:00 EDT, Route toPharmacy Electronically, [facility] #[id number]... Start Date: 10/03/22 Status: Ordered Freestyle [...] 12/20/22 9:10:00 EDT, Route to Pharmacy Electronically, [facility] #[id number], Partial fill uponpatient request if the prescription is for a schedu... Start Date: 12/20/22 Status: Ordered MiraLax oral powder for reconstitution = 17 Gm, By Mouth, Daily, Take daily as needed for constipation, # 255 Gm, 1 Refills, Maintenance, 06/25/22 15:48:00 EST, REC Powder, [facility] #[id number], Partial fill upon patient request ifthe prescription is for a schedule II opioid drug.,... Start Date: 06/25/22 Status: Ordered MiraLax oral powder for reconstitution = 17 Gm, By Mouth, Daily, dissolve in water before taking, # 255 Gm, 0 Refills, Maintenance, 12/20/22 9:10:00 EDT, REC Powder, [facility] #[id number], Partial fill upon patient request if the prescription is for a schedule II opioid drug., 17 Gm... Start Date: 12/20/22 Status: Ordered MiraLax oral powder for reconstitution = 17 Gm, By Mouth, Daily, dissolve in water before taking. Use daily until regular bowel movements., # 255 Gm, 4 Refills, Maintenance, 11/15/22 12:51:00 EDT, REC Powder, [facility] #[id number], Partial fill upon patient request if the [...] capsule, 0 Refills, Maintenance, 12/20/22 9:10:00EDT, Capsule, [facility] #[id number], Partial fill upon patient request if the prescription isfor a schedule II opioid drug., 168, cm, 12/20/22 8... Start Date: 12/20/22 Status: Ordered Tylenol 325 mg oral tablet 975 mg, 3, tablet, By Mouth, Every 8 hours, # 60 tablet, Refills 0, Tot. Refills 0, Maintenance, 12/20/22 9:10:00 EDT, Route to Pharmacy Electronically, [facility] #[id number], Partial fill uponpatient request if the prescription is for a schedu... Start Date: 12/20/22 Status: Ordered Unisom 25 mg oral tablet 1 tablet = 25 mg, By Mouth, Daily at bedtime, PRN for sleep, # 32 tablet, 0 Refills, Maintenance, 07/03/22 5:15:00 EST, Tablet, [facility] #[id number], Partial fill upon patient request if the [...] of placental abruption Confirmed Active Confirmed Active 53154 then 3 miscarriages Social History Social History Type Response Smoking Status Never (less than 100 in lifetime) entered on: 05/22/22 Sex Patient Care team information Care Team Personnel Name: Not on Staff, PCP Position: [facility] Physician (General Medicine) Member Role: PCP Care Team Related Persons Name: KEI DUNCAN Address: home [address] [place] [address] Name: DILEEP DUNCAN Address: [id number] Address: home [address] [place] [address]
--- OUTSIDE RECORDS SUMMARY | 2023-03-26 00:45 | XMS_ITS | Continuity of Care Document ---
Author Name Unknown Organization [facility] Address [address] [place] [address]- Care Team Providers Care Furniture Associate Name Role Phone Not on Staff, PCP Primary Care Physician Unavail able Encounter [facility] [place] Date(s): 10/26/22 - 12/23/[address] [address]- Attending Physician: Not on Staff, Attending MD [...] Replace Required Details, Route to Pharmacy Electronically, [facility] #[id number], Partial fill upon p... Start Date: 08/30/22 Status: Ordered docusate sodium 100 mg oral capsule 1 capsule = 100 mg, By Mouth, 2 times a day, PRN as needed for constipation, # 20 capsule, 2 Refills, Maintenance, 11/15/22 12:51:00 EDT, Capsule, [facility] #[id number], Partial fill upon patient request if the prescription is for a schedule II... Start Date: 11/15/22 Status: Ordered famotidine 20 mg oral tablet 20 mg, 1, tablet, By Mouth, 2 times a day, Take twice daily for acid reflux and to help with nauseaand vomiting., # 60 tablet, Refills 2, Tot. Refills 2, Maintenance, 10/03/22 15:40:00 EDT, Route toPharmacy Electronically, [facility] #[id number]... Start Date: 10/03/22 Status: Ordered Freestyle [...] 12/20/22 9:10:00 EDT, Route to Pharmacy Electronically, [facility] #[id number], Partial fill uponpatient request if the prescription is for a schedu... Start Date: 12/20/22 Status: Ordered MiraLax oral powder for reconstitution = 17 Gm, By Mouth, Daily, Take daily as needed for constipation, # 255 Gm, 1 Refills, Maintenance, 06/25/22 15:48:00 EST, REC Powder, [facility] #[id number], Partial fill upon patient request ifthe prescription is for a schedule II opioid drug.,... Start Date: 06/25/22 Status: Ordered MiraLax oral powder for reconstitution = 17 Gm, By Mouth, Daily, dissolve in water before taking, # 255 Gm, 0 Refills, Maintenance, 12/20/22 9:10:00 EDT, REC Powder, [facility] #[id number], Partial fill upon patient request if the prescription is for a schedule II opioid drug., 17 Gm... Start Date: 12/20/22 Status: Ordered MiraLax oral powder for reconstitution = 17 Gm, By Mouth, Daily, dissolve in water before taking. Use daily until regular bowel movements., # 255 Gm, 4 Refills, Maintenance, 11/15/22 12:51:00 EDT, REC Powder, [facility] #[id number], Partial fill upon patient request if the [...] capsule, 0 Refills, Maintenance, 12/20/22 9:10:00EDT, Capsule, [facility] #[id number], Partial fill upon patient request if the prescription isfor a schedule II opioid drug., 168, cm, 12/20/22 8... Start Date: 12/20/22 Status: Ordered Tylenol 325 mg oral tablet 975 mg, 3, tablet, By Mouth, Every 8 hours, # 60 tablet, Refills 0, Tot. Refills 0, Maintenance, 12/20/22 9:10:00 EDT, Route to Pharmacy Electronically, [facility] #[id number], Partial fill uponpatient request if the prescription is for a schedu... Start Date: 12/20/22 Status: Ordered Unisom 25 mg oral tablet 1 tablet = 25 mg, By Mouth, Daily at bedtime, PRN for sleep, # 32 tablet, 0 Refills, Maintenance, 07/03/22 5:15:00 EST, Tablet, [facility] #[id number], Partial fill upon patient request if the [...] of placental abruption Confirmed Active Confirmed Active 93021 then 3 miscarriages Social History Social History Type Response Smoking Status Never (less than 100 in lifetime) entered on: 05/22/22 Sex Patient Care team information Care Team Personnel Name: Not on Staff, PCP Position: S Physician (General Medicine) Member Role: PCP Care Team Related Persons Name: RUDY WILKINS GIRL Address: [id number] Address: home [address] [place], [place] [id number] [place] Name: KEI DUNCAN Address: home [address] [place] [address]
--- OUTSIDE RECORDS SUMMARY | 2023-03-26 00:45 | XMS_ITS | Continuity of Care Document ---
Author Name Unknown Organization [facility] Address [address] [place] [address]- Care Team Providers Care Med Spa Manager Name Role Phone Not on Staff, PCP Primary Care Physician Unavail able [place] [facility] [place] - 08/22/[address] [address]- Attending Physician: Renate Cotter CNM Admitting Physician: Renate Cotter CNM Allergies, Adverse Reactions, Alerts No Known Medication Allergies Medications doxylamine 25 mg oral tablet 1 tablet = 25 mg, By Mouth, Daily at bedtime, PRN for sleep, # 60 tablet, 0 Refills, Maintenance, 05/27/22 22:41:00 EST, Tablet, [facility] #[id number], Partial fill upon patient request if the prescription is for a schedule II opioid drug., 168,... Start Date: 05/27/22 Status: Ordered famotidine 20 mg oral tablet 20 mg, 1, tablet, By Mouth, 2 times a day, Take twice daily for acid reflux and to help with nauseaand vomiting., # 60 tablet, Refills 2, Tot. Refills 2, Maintenance, 06/25/22 15:48:00 EST, Route toPharmacy Electronically, [facility] #[id number]... Start Date: 06/25/22 Status: Ordered MiraLax oral powder for reconstitution = 17 Gm, By Mouth, Daily, Take daily as needed for constipation, # 255 Gm, 1 Refills, Maintenance, 06/25/22 15:48:00 EST, REC Powder, [facility] #[id number], Partial fill upon patient request ifthe prescription is for a schedule II opioid drug.,... Start Date: 06/25/22 Status: Ordered ondansetron 4 mg oral tablet 1 tablet = 4 mg, By Mouth, Every 6 hours, # 12 tablet, 1 Refills, Maintenance, 05/27/22 21:28:00 EST, Tablet, [facility] #[id number], Partial fill upon patient request if the prescription is fora schedule II opioid drug., 168, cm, 05/27/22 12:06... Start Date: 05/27/22 Status: Ordered ondansetron 4 mg oral tablet, disintegrating 1 tablet = 4 mg, By Mouth, Every 8 hours, PRN Nausea & Vomiting, # 30 tablet, 0 Refills, Maintenance, 07/03/22 5:15:00 EST, Tablet, [facility] #[id number], Partial fill upon patient request if the [...] tablet, 1 Refills, Maintenance, 06/25/22 15:25:00 EST, [facility] #[id number], Partial fill upon patient request if theprescription is for a schedule II opioid drug., 168, cm... Start Date: 06/25/22 Status: Ordered Unisom 25 mg oral tablet 1 tablet = 25 mg, By Mouth, Daily at bedtime, PRN for sleep, # 32 tablet, 0 Refills, Maintenance, 07/03/22 5:15:00 EST, Tablet, [facility] #[id number], Partial fill upon patient request if the prescription is for a schedule II opioid drug., 168,... Start Date: 07/03/22 Status: Ordered Vitamin B6 25 mg oral tablet 1 tablet = 25 mg, By Mouth, 3 times a day, # 60 tablet, 0 Refills, Maintenance, 05/27/22 22:41:00 EST, [facility] #[id number], Partial fill upon patient request if the prescription is for a schedule II opioid drug., 168, cm, 05/27/22 12:06:00 EST... Start Date: 05/27/22 Status: Ordered Vitamin B6 50 mg oral tablet 50 mg, 1, tablet, By Mouth, 3 times a day, for 30 days, # 90 tablet, Refills 2, Tot. Refills 2, Acute 10/04/22 15:53:00 EDT, 07/06/22 15:53:00 EST, Route to Pharmacy Electronically, [facility] #[id number], Partial fill upon patient request if the... [...] and vomiting in Confirmed Active Confirmed Active 249[address] then 3 miscarriages Social History Social History Type Response Smoking Status Never (less than 100 in lifetime) entered on: 05/22/22 Sex Patient Care team information Care Team Personnel Name: Not on Staff, PCP Position: S Physician (General Medicine) Member Role: PCP Care Team Related Persons Name: BARRIE DUNCANSARA Address: home [address] [place] [address] [address] [place] [address]
--- OUTSIDE RECORDS SUMMARY | 2023-03-26 00:45 | XMS_ITS | Continuity of Care Document ---
Author Name Unknown Organization [facility] ter Address [address] [place] [address]- Care Team Providers Care Flight Operations Specialist Name Role Phone Not on Staff, PCP Primary Care Physician Unavail able [place] [facility] [place] - 10/22/[address] [address]- Discharge Disposition: A-D/C Home Attending Physician: James Morelos MD Admitting Physician: James Morelos MD Referring Physician: James Morelos MD Allergies, Adverse Reactions, Alerts No Known Medication Allergies Medications Alcohol Wipes See Instructions, # 200 [...] Replace Required Details, Route to Pharmacy Electronically, [facility] #[id number], Partial fill upon p... Start Date: 08/30/22 Status: Ordered famotidine 20 mg oral tablet 20 mg, 1, tablet, By Mouth, 2 times a day, Take twice daily for acid reflux and to help with nauseaand vomiting., # 60 tablet, Refills 2, Tot. Refills 2, Maintenance, 10/03/22 15:40:00 EDT, Route toPharmacy Electronically, [facility] #[id number]... Start Date: 10/03/22 Status: Ordered ferrous sulfate 325 mg oral tablet 1 tablet = 325 mg, By Mouth, Every other day, # 90 tablet, 0 Refills, Maintenance, 10/01/22 22:08:00 EDT, Tablet, [facility] #[id number], Partial fill upon patient request if the [...] 0 Refills, Maintenance, 10/22/22 14:12:00 EDT, Solution, [facility], Partial fill upon patient request if the prescription is for a schedule II opioid drug., 168, cm,... Start Date: 10/22/22 Status: Ordered Lantus Solostar Pen 100 units/mL subcutaneous solution = 45 units, Subcutaneous Injection, Daily at bedtime, # 15 mL, 0 Refills, Maintenance, 10/22/22 14:12:00 EDT, Solution, [facility], Partial fill upon patient request if the prescriptionis for a schedule II opioid drug., 168, cm, ... Start Date: 10/22/22 Status: Ordered MiraLax oral powder for reconstitution = 17 Gm, By Mouth, Daily, Take daily as needed for constipation, # 255 Gm, 1 Refills, Maintenance, 06/25/22 15:48:00 EST, REC Powder, [facility] #[id number], Partial fill upon patient request ifthe prescription is for a schedule II opioid drug.,... Start Date: 06/25/22 Status: Ordered ondansetron 4 mg oral tablet 1 tablet = 4 mg, By Mouth, Every 6 hours, # 12 tablet, 1 Refills, Maintenance, 05/27/22 21:28:00 EST, Tablet, [facility] #[id number], Partial fill upon patient request if the [...] 0 Refills, Maintenance, 07/03/22 5:15:00 EST, Tablet, [facility] #[id number], Partial fill upon patient request if the [...] and vomiting in Confirmed Active Confirmed Active 64197 then 3 miscarriages Social History Social History Type Response Smoking Status Never (less than 100 in lifetime) entered on: 05/22/22 Sex Patient Care team information Care Team Personnel Name: Not on Staff, PCP Position: [facility] Physician (General Medicine) Member Role: PCP Name: Yin Mtz RN Position: [facility] OB RN Member Role: Patient Care Provider Care Team Related Persons Name: BARRIE DUNCANSARA Address: home [address] [place] [phone]
--- OUTSIDE RECORDS SUMMARY | 2023-03-26 00:45 | XMS_ITS | Continuity of Care Document ---
Author Name Unknown Organization [facility] Address [address] [place] [address]- Care Team Providers Care Chaplain Name Role Phone Not on Staff, PCP Primary Care Physician Unavail able Encounter [facility] Date(s): 10/05/22 - 11/04/[address] [address]- Allergies, Adverse Reactions, Alerts No Known Medication [...] Replace Required Details, Route to Pharmacy Electronically, [facility] #[id number], Partial fill upon p... Start Date: 08/30/22 Status: Ordered famotidine 20 mg oral tablet 20 mg, 1, tablet, By Mouth, 2 times a day, Take twice daily for acid reflux and to help with nauseaand vomiting., # 60 tablet, Refills 2, Tot. Refills 2, Maintenance, 10/03/22 15:40:00 EDT, Route toPharmacy Electronically, [facility] #[id number]... Start Date: 10/03/22 Status: Ordered ferrous sulfate 325 mg oral tablet 1 tablet = 325 mg, By Mouth, Daily, # 90 tablet, 1 Refills, Maintenance, 11/02/22 7:39:00 EDT, Tablet, [facility] #[id number], Partial fill upon patient request if the prescription is for a schedule II opioid drug., 168, cm, 10/26/22 13:03:00 EDT... Start Date: 11/02/22 Status: Ordered ferrous sulfate 325 mg oral tablet 1 tablet = 325 mg, By Mouth, Every other day, # 90 tablet, 0 Refills, Maintenance, 10/01/22 22:08:00 EDT, Tablet, [facility] #[id number], Partial fill upon patient request if the [...] 0 Refills, Maintenance, 10/22/22 14:12:00 EDT, Solution, [facility], Partial fill upon patient request if the prescription is for a schedule II opioid drug., 168, cm,... Start Date: 10/22/22 Status: Ordered insulin lispro 100 units/mL injectable solution = 18 units, Subcutaneous Injection, 3 times a day before meals, # 10 mL, 0 Refills, Maintenance, 10/26/22 23:16:00 EDT, Solution, [facility], Partial fill upon patient request if the prescription is for a schedule II opioid drug., 168, c... Start Date: 10/26/22 Status: Ordered Lantus Solostar Pen 100 units/mL subcutaneous solution = 45 units, Subcutaneous Injection, Daily at bedtime, # 15 mL, 0 Refills, Maintenance, 10/22/22 14:12:00 EDT, Solution, [facility], Partial fill upon patient request if the prescriptionis for a schedule II opioid drug., 168, cm, ... Start Date: 10/22/22 Status: Ordered MiraLax oral powder for reconstitution = 17 Gm, By Mouth, Daily, Take daily as needed for constipation, # 255 Gm, 1 Refills, Maintenance, 06/25/22 15:48:00 EST, REC Powder, [facility] #[id number], Partial fill upon patient request ifthe prescription is for a schedule II opioid drug.,... Start Date: 06/25/22 Status: Ordered ondansetron 4 mg oral tablet 1 tablet = 4 mg, By Mouth, Every 6 hours, # 12 tablet, 1 Refills, Maintenance, 05/27/22 21:28:00 EST, Tablet, [facility] #[id number], Partial fill upon patient request if the prescription is fora schedule II opioid drug., 168 cm, 05/27/22 12:06... Start Date: 05/27/22 Status: [...] 0 Refills, Maintenance, 07/03/22 5:15:00 EST, Tablet, [facility] #[id number], Partial fill upon patient request if the [...] and vomiting in Confirmed Active Confirmed Active 23840 then 3 miscarriages Social History Social History Type Response Smoking Status Never (less than 100 in lifetime) entered on: 05/22/22 Sex Patient Care team information Care Team Personnel Name: Not on Staff, PCP Position: S Physician (General Medicine) Member Role: PCP Care Team Related Persons Name: KEI DUNCAN Address: home [address] [place] [id number]
--- OUTSIDE RECORDS SUMMARY | 2023-03-26 00:45 | XMS_ITS | Continuity of Care Document ---
Author Name Unknown Organization [facility] ter Address [address] [place] [address]- Care Team Providers Care Manager Farm Name Role Phone Not on Staff, PCP Primary Care Physician Unavail able Encounter [facility] Date(s): 05/27/22 - 05/27/[address] [address]- Discharge Disposition: A-D/C Home Attending Physician: Freddy Engel DO Admitting Physician: Freddy Engel DO Referring Physician: Not on Staff, Referring MD Allergies, Adverse Reactions, Alerts No Known Medication Allergies Medications doxylamine 25 mg oral tablet 1 tablet = 25 mg, By Mouth, Daily at bedtime, PRN for sleep, # 60 tablet, 0 Refills, Maintenance, 05/27/22 22:41:00 EST, Tablet, [facility] #[id number], Partial fill upon patient request if the prescription is for a schedule II opioid drug., 168,... Start Date: 05/27/22 Status: Ordered ondansetron 4 mg oral tablet 1 tablet = 4 mg, By Mouth, Every 6 hours, # 12 tablet, 1 Refills, Maintenance, 05/27/22 21:28:00 EST, Tablet, [facility] #[id number], Partial fill upon patient request if the [...] tablet, 0 Refills, Maintenance, 05/27/22 22:41:00 EST, [facility] #[id number], Partial fill upon patient request if the [...] in prior , currently 1 Confirmed Active 13269 then 3 miscarriages Vital Signs Most recent to oldest [Reference Range]: 1 2 3 Height 168 cm (05/27/22 12:06 PM) Weight 87 kg (05/27/22 12:06 PM) Oxygen Saturation [94-100 %] 99 % (05/27/22 1:47 PM) 100 % (05/27/22 12:06 PM) 99 % (05/27/22 11:54 AM) Pulse Rate [55-90 bpm] 80 bpm (05/27/22 1:47 PM) 99 bpm *H* (05/27/22 12:06 PM) 84 bpm (05/27/22 11:54 AM) Body Mass Index [18.5-24.99 kg/m2] 30.82 kg/m2 *>HHI* (05/27/22 12:06 PM) Blood Pressure [90-138/55-84 mm Hg] 126/61mm Hg (05/27/22 1:47 PM) 157/94mm Hg *H* (05/27/22 12:06 PM) Respiratory Rate [16-30 br/min] 18 br/min (05/27/22 1:47 PM) 16 br/min (05/27/22 12:06 PM) Temperature [96.8-100.4 DegF] 98.1 DegF (05/27/22 1:47 PM) 99.3 DegF (05/27/22 12:06 PM) Mode of Delivery (Oxygen) Room air (05/27/22 1:47 PM) Room air (05/27/22 12:06 PM) Room air (05/27/22 11:54 AM) Blood pressure sites Arm, left (05/27/22 1:47 PM) Arm, right (05/27/22 12:06 PM) Temperature Route Oral (05/27/22 1:47 PM) Oral (05/27/22 12:06 PM) Dry Weight 87 kg (05/27/22 12:06 PM) Weight Obtained Via Patient/family state d (05/27/22 12:06 PM) Dry Weight Obtained Via Patient/family s tated (05/27/22 12:06 PM) Social History Social History Type Response Smoking Status Never (less than 100 in lifetime) entered on: 05/22/22 Sex Patient Care team information Care Team Personnel Name: Not on Staff, PCP Position: [facility] Physician (General Medicine) Member Role: PCP Name: Freddy Engel DO Position: [facility] Resident Member Role: Admitting Physician Address: Address: [address] [place] [address] [place] [address]- Name: Yin Walker RN Position: [facility] ED RN W/OE and Tasks Member Role: Patient Care Provider Care Team Related Persons Name: KEI DUNCAN Address: [address] [address]
--- OUTSIDE RECORDS SUMMARY | 2023-03-26 00:45 | XMS_ITS | Continuity of Care Document ---
Author Name Unknown Organization [facility] Address [address] [place] [address]- Care Team Providers Care Medical Affairs Director Name Role Phone Not on Staff, PCP Primary Care Physician Unavail able [place] [facility] [place] - 01/17/[address] [address]- Attending Physician: Not on Staff, Attending MD [...] Replace Required Details, Route to Pharmacy Electronically, [facility] #[id number], Partial fill upon p... Start Date: 08/30/22 Status: Ordered docusate sodium 100 mg oral capsule 1 capsule = 100 mg, By Mouth, 2 times a day, PRN as needed for constipation, # 20 capsule, 2 Refills, Maintenance, 11/15/22 12:51:00 EDT, Capsule, [facility] #[id number], Partial fill upon patient request if the prescription is for a schedule II... Start Date: 11/15/22 Status: Ordered famotidine 20 mg oral tablet 20 mg, 1, tablet, By Mouth, 2 times a day, Take twice daily for acid reflux and to help with nauseaand vomiting., # 60 tablet, Refills 2, Tot. Refills 2, Maintenance, 10/03/22 15:40:00 EDT, Route toPharmacy Electronically, [facility] #[id number]... Start Date: 10/03/22 Status: Ordered Freestyle [...] 12/20/22 9:10:00 EDT, Route to Pharmacy Electronically, [facility] #[id number], Partial fill uponpatient request if the prescription is for a schedu... Start Date: 12/20/22 Status: Ordered MiraLax oral powder for reconstitution = 17 Gm, By Mouth, Daily, Take daily as needed for constipation, # 255 Gm, 1 Refills, Maintenance, 06/25/22 15:48:00 EST, REC Powder, [facility] #[id number], Partial fill upon patient request ifthe prescription is for a schedule II opioid drug.,... Start Date: 06/25/22 Status: Ordered MiraLax oral powder for reconstitution = 17 Gm, By Mouth, Daily, dissolve in water before taking, # 255 Gm, 0 Refills, Maintenance, 12/20/22 9:10:00 EDT, REC Powder, [facility] #[id number], Partial fill upon patient request if the prescription is for a schedule II opioid drug., 17 Gm... Start Date: 12/20/22 Status: Ordered MiraLax oral powder for reconstitution = 17 Gm, By Mouth, Daily, dissolve in water before taking. Use daily until regular bowel movements., # 255 Gm, 4 Refills, Maintenance, 11/15/22 12:51:00 EDT, REC Powder, [facility] #[id number], Partial fill upon patient request if the [...] capsule, 0 Refills, Maintenance, 12/20/22 9:10:00EDT, Capsule, [facility] #[id number], Partial fill upon patient request if the prescription isfor a schedule II opioid drug., 168, cm, 12/20/22 8... Start Date: 12/20/22 Status: Ordered Tylenol 325 mg oral tablet 975 mg, 3, tablet, By Mouth, Every 8 hours, # 60 tablet, Refills 0, Tot. Refills 0, Maintenance, 12/20/22 9:10:00 EDT, Route to Pharmacy Electronically, [facility] #[id number], Partial fill uponpatient request if the prescription is for a schedu... Start Date: 12/20/22 Status: Ordered Unisom 25 mg oral tablet 1 tablet = 25 mg, By Mouth, Daily at bedtime, PRN for sleep, # 32 tablet, 0 Refills, Maintenance, 07/03/22 5:15:00 EST, Tablet, [facility] #[id number], Partial fill upon patient request if the [...] of placental abruption Confirmed Active Confirmed Active 245[address] then 3 miscarriages Social History Social History Type Response Smoking Status Never (less than 100 in lifetime) entered on: 05/22/22 Sex Patient Care team information Care Team Personnel Name: Not on Staff, PCP Position: S Physician (General Medicine) Member Role: PCP Care Team Related Persons Name: KEI DUNCAN Address: home [address] [place] [phone] Name: DILEEP DUNCAN Address: [id number] Address: home [address] [place] [address]
--- OUTSIDE RECORDS SUMMARY | 2023-03-26 00:45 | XMS_ITS | Continuity of Care Document ---
Author Name Unknown Organization [facility] Address [address] [place] [address]- Care Team Providers Care Animal Shelter Manager Name Role Phone Not on Staff, PCP Primary Care Physician Unavail able Encounter [facility] Date(s): 11/01/22 - 12/01/22 [facility] [address] [address]- Allergies, Adverse Reactions, Alerts No Known Medication [...] Replace Required Details, Route to Pharmacy Electronically, [facility] #[id number], Partial fill upon p... Start Date: 08/30/22 Status: Ordered docusate sodium 100 mg oral capsule 1 capsule = 100 mg, By Mouth, 2 times a day, PRN as needed for constipation, # 20 capsule, 2 Refills, Maintenance, 11/15/22 12:51:00 EDT, Capsule, [facility] #[id number], Partial fill upon patient request if the prescription is for a schedule II... Start Date: 11/15/22 Status: Ordered famotidine 20 mg oral tablet 20 mg, 1, tablet, By Mouth, 2 times a day, Take twice daily for acid reflux and to help with nauseaand vomiting., # 60 tablet, Refills 2, Tot. Refills 2, Maintenance, 10/03/22 15:40:00 EDT, Route toPharmacy Electronically, [facility] #[id number]... Start Date: 10/03/22 Status: Ordered ferrous sulfate 325 mg oral tablet 1 tablet = 325 mg, By Mouth, Daily, # 90 tablet, 1 Refills, Maintenance, 11/02/22 7:39:00 EDT, Tablet, [facility] #[id number], Partial fill upon patient request if the [...] mL, 1 Refills, Maintenance, 11/16/22 16:15:00 EDT, [facility] #[id number], Partial fill upon patient request if the prescription is for a schedule II opioid drug. This replaces p... Start Date: 11/16/22 Status: Ordered Lantus Solostar Pen 100 units/mL subcutaneous solution = 45 units, Subcutaneous Injection, Daily at bedtime, # 15 mL, 0 Refills, Maintenance, 10/22/22 14:12:00 EDT, Solution, [facility], Partial fill upon patient request if the prescriptionis for a schedule II opioid drug., 168, cm, ... Start Date: 10/22/22 Status: Ordered Lantus Solostar Pen 100 units/mL subcutaneous solution = 47 units, Subcutaneous Injection, Daily at bedtime, # 15 mL, 1 Refills, Maintenance, 11/16/22 16:15:00 EDT, Solution, [facility] #[id number], Partial fill upon patient request if the prescription is for a schedule II opioid drug. This replaces... Start Date: 11/16/22 Status: Ordered MiraLax oral powder for reconstitution = 17 Gm, By Mouth, Daily, Take daily as needed for constipation, # 255 Gm, 1 Refills, Maintenance, 06/25/22 15:48:00 EST, REC Powder, [facility] #[id number], Partial fill upon patient request ifthe prescription is for a schedule II opioid drug.,... Start Date: 06/25/22 Status: Ordered MiraLax oral powder for reconstitution = 17 Gm, By Mouth, Daily, dissolve in water before taking. Use daily until regular bowel movements., # 255 Gm, 4 Refills, Maintenance, 11/15/22 12:51:00 EDT, REC Powder, [facility] #[id number], Partial fill upon patient request if the [...] 0 Refills, Maintenance, 07/03/22 5:15:00 EST, Tablet, [facility] #[id number], Partial fill upon patient request if the [...] of placental abruption Confirmed Active Confirmed Active 66365 then 3 miscarriages Social History Social History Type Response Smoking Status Never (less than 100 in lifetime) entered on: 05/22/22 Sex Patient Care team information Care Team Personnel Name: Not on Staff, PCP Position: S Physician (General Medicine) Member Role: PCP Care Team Related Persons Name: PERLA KEI Address: home [address] [place] [id number]
--- OUTSIDE RECORDS SUMMARY | 2023-03-26 00:45 | XMS_ITS | Continuity of Care Document ---
Author Name Unknown Organization [facility] Address [address] [place] [address]- Care Team Providers Care Metaphysician Name Role Phone Not on Staff, PCP Primary Care Physician Unavail able Encounter [facility] Date(s): 12/04/22 - 01/03/[address] [address]- Allergies, Adverse Reactions, Alerts No Known Medication [...] Replace Required Details, Route to Pharmacy Electronically, [facility] #[id number], Partial fill upon p... Start Date: 08/30/22 Status: Ordered docusate sodium 100 mg oral capsule 1 capsule = 100 mg, By Mouth, 2 times a day, PRN as needed for constipation, # 20 capsule, 2 Refills, Maintenance, 11/15/22 12:51:00 EDT, Capsule, [facility] #[id number], Partial fill upon patient request if the prescription is for a schedule II... Start Date: 11/15/22 Status: Ordered famotidine 20 mg oral tablet 20 mg, 1, tablet, By Mouth, 2 times a day, Take twice daily for acid reflux and to help with nauseaand vomiting., # 60 tablet, Refills 2, Tot. Refills 2, Maintenance, 10/03/22 15:40:00 EDT, Route toPharmacy Electronically, [facility] #[id number]... Start Date: 10/03/22 Status: Ordered Freestyle [...] 12/20/22 9:10:00 EDT, Route to Pharmacy Electronically, [facility] #[id number], Partial fill uponpatient request if the prescription is for a schedu... Start Date: 12/20/22 Status: Ordered MiraLax oral powder for reconstitution = 17 Gm, By Mouth, Daily, Take daily as needed for constipation, # 255 Gm, 1 Refills, Maintenance, 06/25/22 15:48:00 EST, REC Powder, [facility] #[id number], Partial fill upon patient request ifthe prescription is for a schedule II opioid drug.,... Start Date: 06/25/22 Status: Ordered MiraLax oral powder for reconstitution = 17 Gm, By Mouth, Daily, dissolve in water before taking, # 255 Gm, 0 Refills, Maintenance, 12/20/22 9:10:00 EDT, REC Powder, [facility] #[id number], Partial fill upon patient request if the prescription is for a schedule II opioid drug., 17 Gm... Start Date: 12/20/22 Status: Ordered MiraLax oral powder for reconstitution = 17 Gm, By Mouth, Daily, dissolve in water before taking. Use daily until regular bowel movements., # 255 Gm, 4 Refills, Maintenance, 11/15/22 12:51:00 EDT, REC Powder, [facility] #[id number], Partial fill upon patient request if the [...] capsule, 0 Refills, Maintenance, 12/20/22 9:10:00EDT, Capsule, [facility] #[id number], Partial fill upon patient request if the prescription isfor a schedule II opioid drug., 168, cm, 12/20/22 8... Start Date: 12/20/22 Status: Ordered Tylenol 325 mg oral tablet 975 mg, 3, tablet, By Mouth, Every 8 hours, # 60 tablet, Refills 0, Tot. Refills 0, Maintenance, 12/20/22 9:10:00 EDT, Route to Pharmacy Electronically, [facility] #[id number], Partial fill uponpatient request if the prescription is for a schedu... Start Date: 12/20/22 Status: Ordered Unisom 25 mg oral tablet 1 tablet = 25 mg, By Mouth, Daily at bedtime, PRN for sleep, # 32 tablet, 0 Refills, Maintenance, 07/03/22 5:15:00 EST, Tablet, [facility] #[id number], Partial fill upon patient request if the [...] of placental abruption Confirmed Active Confirmed Active 990[address] then 3 miscarriages Social History Social History Type Response Smoking Status Never (less than 100 in lifetime) entered on: 05/22/22 Sex Patient Care team information Care Team Personnel Name: Not on Staff, PCP Position: [facility] Physician (General Medicine) Member Role: PCP Care Team Related Persons Name: KEI DUNCAN Address: home [address] [place] [address] Name: DILEEP DUNCAN Address: [id number] Address: home [address] [place] [address]
--- OUTSIDE RECORDS SUMMARY | 2023-03-26 00:45 | XMS_ITS | Continuity of Care Document ---
Author Name Unknown Organization [facility] ter Address [address] [place] [address]- Care Team Providers Care Assistant Floor Covering Printer Name Role Phone Not on Staff, PCP Primary Care Physician Unavail able Encounter [facility] Date(s): 12/18/22 - 01/23/[address] [address]- Attending Physician: Rowena Schwartz DO Admitting Physician: [...] Replace Required Details, Route to Pharmacy Electronically, [facility] #[id number], Partial fill upon p... Start Date: 08/30/22 Status: Ordered docusate sodium 100 mg oral capsule 1 capsule = 100 mg, By Mouth, 2 times a day, PRN as needed for constipation, # 20 capsule, 2 Refills, Maintenance, 11/15/22 12:51:00 EDT, Capsule, [facility] #[id number], Partial fill upon patient request if the prescription is for a schedule II... Start Date: 11/15/22 Status: Ordered famotidine 20 mg oral tablet 20 mg, 1, tablet, By Mouth, 2 times a day, Take twice daily for acid reflux and to help with nauseaand vomiting., # 60 tablet, Refills 2, Tot. Refills 2, Maintenance, 10/03/22 15:40:00 EDT, Route toPharmacy Electronically, [facility] #[id number]... Start Date: 10/03/22 Status: Ordered Freestyle [...] 12/20/22 9:10:00 EDT, Route to Pharmacy Electronically, [facility] #[id number], Partial fill uponpatient request if the prescription is for a schedu... Start Date: 12/20/22 Status: Ordered MiraLax oral powder for reconstitution = 17 Gm, By Mouth, Daily, Take daily as needed for constipation, # 255 Gm, 1 Refills, Maintenance, 06/25/22 15:48:00 EST, REC Powder, [facility] #[id number], Partial fill upon patient request ifthe prescription is for a schedule II opioid drug.,... Start Date: 06/25/22 Status: Ordered MiraLax oral powder for reconstitution = 17 Gm, By Mouth, Daily, dissolve in water before taking, # 255 Gm, 0 Refills, Maintenance, 12/20/22 9:10:00 EDT, REC Powder, [facility] #[id number], Partial fill upon patient request if the prescription is for a schedule II opioid drug., 17 Gm... Start Date: 12/20/22 Status: Ordered MiraLax oral powder for reconstitution = 17 Gm, By Mouth, Daily, dissolve in water before taking. Use daily until regular bowel movements., # 255 Gm, 4 Refills, Maintenance, 11/15/22 12:51:00 EDT, REC Powder, [facility] #[id number], Partial fill upon patient request if the [...] capsule, 0 Refills, Maintenance, 12/20/22 9:10:00EDT, Capsule, [facility] #[id number], Partial fill upon patient request if the prescription isfor a schedule II opioid drug., 168, cm, 12/20/22 8... Start Date: 12/20/22 Status: Ordered Tylenol 325 mg oral tablet 975 mg, 3, tablet, By Mouth, Every 8 hours, # 60 tablet, Refills 0, Tot. Refills 0, Maintenance, 12/20/22 9:10:00 EDT, Route to Pharmacy Electronically, [facility] #[id number], Partial fill uponpatient request if the prescription is for a schedu... Start Date: 12/20/22 Status: Ordered Unisom 25 mg oral tablet 1 tablet = 25 mg, By Mouth, Daily at bedtime, PRN for sleep, # 32 tablet, 0 Refills, Maintenance, 07/03/22 5:15:00 EST, Tablet, [facility] #[id number], Partial fill upon patient request if the [...] of placental abruption Confirmed Active Confirmed Active 12636 then 3 miscarriages Social History Social History Type Response Smoking Status Never (less than 100 in lifetime) entered on: 05/22/22 Sex Patient Care team information Care Team Personnel Name: Not on Staff, PCP Position: S Physician (General Medicine) Member Role: PCP Care Team Related Persons Name: KEI DUNCAN Address: home [address] [place] [id number] Name: DILEEP DUNCAN Address: [id number] Address: home [address] [place] [address]
--- OUTSIDE RECORDS SUMMARY | 2023-03-26 00:45 | XMS_ITS | Continuity of Care Document ---
Author Name Unknown Organization [facility] Address [address] [place] [id number]- Care Team Providers Care Branch Services Manager Name Role Phone Not on Staff, PCP Primary Care Physician Unavail able [place] [facility] [place] - 10/[place]/22 [facility] [address] [address]- Attending Physician: Ya Howe CNM Admitting Physician: Ya Howe CNM Allergies, Adverse Reactions, Alerts No Known [...] Replace Required Details, Route to Pharmacy Electronically, [facility] #[id number], Partial fill upon p... Start Date: 08/30/22 Status: Ordered famotidine 20 mg oral tablet 20 mg, 1, tablet, By Mouth, 2 times a day, Take twice daily for acid reflux and to help with nauseaand vomiting., # 60 tablet, Refills 2, Tot. Refills 2, Maintenance, 10/03/22 15:40:00 EDT, Route toPharmacy Electronically, [facility] #[id number]... Start Date: 10/03/22 Status: Ordered ferrous sulfate 325 mg oral tablet 1 tablet = 325 mg, By Mouth, Every other day, # 90 tablet, 0 Refills, Maintenance, 10/01/22 22:08:00 EDT, Tablet, [facility] #[id number], Partial fill upon patient request if the [...] 0 Refills, Maintenance, 10/22/22 14:12:00 EDT, Solution, [facility], Partial fill upon patient request if the prescription is for a schedule II opioid drug., 168, cm,... Start Date: 10/22/22 Status: Ordered insulin lispro 100 units/mL injectable solution = 18 units, Subcutaneous Injection, 3 times a day before meals, # 10 mL, 0 Refills, Maintenance, 10/26/22 23:16:00 EDT, Solution, [facility], Partial fill upon patient request if the prescription is for a schedule II opioid drug., 168, c... Start Date: 10/26/22 Status: Ordered Lantus Solostar Pen 100 units/mL subcutaneous solution = 45 units, Subcutaneous Injection, Daily at bedtime, # 15 mL, 0 Refills, Maintenance, 10/22/22 14:12:00 EDT, Solution, [facility], Partial fill upon patient request if the prescriptionis for a schedule II opioid drug., 168, cm, ... Start Date: 10/22/22 Status: Ordered MiraLax oral powder for reconstitution = 17 Gm, By Mouth, Daily, Take daily as needed for constipation, # 255 Gm, 1 Refills, Maintenance, 06/25/22 15:48:00 EST, REC Powder, [facility] #[id number], Partial fill upon patient request ifthe prescription is for a schedule II opioid drug.,... Start Date: 06/25/22 Status: Ordered ondansetron 4 mg oral tablet 1 tablet = 4 mg, By Mouth, Every 6 hours, # 12 tablet, 1 Refills, Maintenance, 05/27/22 21:28:00 EST, Tablet, [facility] #[id number], Partial fill upon patient request if the [...] 0 Refills, Maintenance, 07/03/22 5:15:00 EST, [facility][id number], Partial fill upon patient request if the [...] and vomiting in Confirmed Active Confirmed Active 81202 then 3 miscarriages Social History Social History Type Response Smoking Status Never (less than 100 in lifetime) entered on: 05/22/22 Sex Patient Care team information Care Team Personnel Name: Not on Staff, PCP Position: S Physician (General Medicine) Member Role: PCP Care Team Related Persons Name: KEI DUNCAN Address: home [address] [place] [id number]
--- OUTSIDE RECORDS SUMMARY | 2023-03-26 00:45 | XMS_ITS | Continuity of Care Document ---
Author Name Unknown Organization [facility] Address [address] [place] [id number]- Care Team Providers Care Dedicated Local Truck Driver Name Role Phone Not on Staff, PCP Primary Care Physician Unavail able [place] [facility] [place] 10[place]26/22 - 02/03/23 [facility] [address] [address]- Attending Physician: Not on Staff, Attending MD [...] Replace Required Details, Route to Pharmacy Electronically, [facility] #[id number], Partial fill upon p... Start Date: 08/30/22 Status: Ordered docusate sodium 100 mg oral capsule 1 capsule = 100 mg, By Mouth, 2 times a day, PRN as needed for constipation, # 20 capsule, 2 Refills, Maintenance, 11/15/22 12:51:00 EDT, Capsule, [facility] #[id number], Partial fill upon patient request if the prescription is for a schedule II... Start Date: 11/15/22 Status: Ordered famotidine 20 mg oral tablet 20 mg, 1, tablet, By Mouth, 2 times a day, Take twice daily for acid reflux and to help with nauseaand vomiting., # 60 tablet, Refills 2, Tot. Refills 2, Maintenance, 10/03/22 15:40:00 EDT, Route toPharmacy Electronically, [facility] #[id number]... Start Date: 10/03/22 Status: Ordered Freestyle [...] 12/20/22 9:10:00 EDT, Route to Pharmacy Electronically, [facility] #[id number], Partial fill uponpatient request if the prescription is for a schedu... Start Date: 12/20/22 Status: Ordered MiraLax oral powder for reconstitution = 17 Gm, By Mouth, Daily, Take daily as needed for constipation, # 255 Gm, 1 Refills, Maintenance, 06/25/22 15:48:00 EST, REC Powder, [facility] #[id number], Partial fill upon patient request ifthe prescription is for a schedule II opioid drug.,... Start Date: 06/25/22 Status: Ordered MiraLax oral powder for reconstitution = 17 Gm, By Mouth, Daily, dissolve in water before taking, # 255 Gm, 0 Refills, Maintenance, 12/20/22 9:10:00 EDT, REC Powder, [facility] #[id number], Partial fill upon patient request if the prescription is for a schedule II opioid drug., 17 Gm... Start Date: 12/20/22 Status: Ordered MiraLax oral powder for reconstitution = 17 Gm, By Mouth, Daily, dissolve in water before taking. Use daily until regular bowel movements., # 255 Gm, 4 Refills, Maintenance, 11/15/22 12:51:00 EDT, REC Powder, [facility] #[id number], Partial fill upon patient request if the [...] capsule, 0 Refills, Maintenance, 12/20/22 9:10:00EDT, Capsule, [facility] #[id number], Partial fill upon patient request if the prescription isfor a schedule II opioid drug., 168, cm, 12/20/22 8... Start Date: 12/20/22 Status: Ordered Tylenol 325 mg oral tablet 975 mg, 3, tablet, By Mouth, Every 8 hours, # 60 tablet, Refills 0, Tot. Refills 0, Maintenance, 12/20/22 9:10:00 EDT, Route to Pharmacy Electronically, [facility] #[id number], Partial fill uponpatient request if the prescription is for a schedu... Start Date: 12/20/22 Status: Ordered Unisom 25 mg oral tablet 1 tablet = 25 mg, By Mouth, Daily at bedtime, PRN for sleep, # 32 tablet, 0 Refills, Maintenance, 07/03/22 5:15:00 EST, Tablet, [facility] #[id number], Partial fill upon patient request if the [...] of placental abruption Confirmed Active Confirmed Active 13525 then 3 miscarriages Social History Social History Type Response Smoking Status Never (less than 100 in lifetime) entered on: 05/22/22 Sex Patient Care team information Care Team Personnel Name: Not on Staff, PCP Position: [facility] Physician (General Medicine) Member Role: PCP Care Team Related Persons Name: KEI DUNCAN Address: home [address] [place] [address] Name: DILEEP DUNCAN Address: [id number] Address: home [address] [place] [address]
--- OUTSIDE RECORDS SUMMARY | 2023-03-26 00:45 | XMS_ITS | Continuity of Care Document ---
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 Start Date: 08/30/22 Status: Ordered docusate sodium 100 mg oral capsule 1 capsule = 100 mg, By Mouth, 2 times a day, PRN as needed for constipation, # 20 capsule, 2 Refills, Maintenance, 11/15/22 12:51:00 EDT, Capsule, [facility] #[id number], Partial fill upon patient request if the prescription is for a schedule II... Start Date: 11/15/22 Status: Ordered famotidine 20 mg oral tablet 20 mg, 1, tablet, By Mouth, 2 times a day, Take twice daily for acid reflux and to help with nauseaand vomiting., # 60 tablet, Refills 2, Tot. Refills 2, Maintenance, 10/03/22 15:40:00 EDT, Route toPharmacy Electronically, [facility] #[id number]... Start Date: 10/03/22 Status: Ordered Freestyle [...] 02/04/23 21:07:00 EDT, Route to Pharmacy Electronically, [facility] #[id number], Partial fill upon patient request if the prescription is for a sched... Start Date: 02/04/23 Status: Ordered ibuprofen 600 mg oral tablet 600 mg, 1, tablet, By Mouth, Every 6 hours, # 40 tablet, Refills 0, Tot. Refills 0, Maintenance, 12/20/22 9:10:00 EDT, Route to Pharmacy Electronically, [facility] #[id number], Partial fill uponpatient request if the prescription is for a schedu... Start Date: 12/20/22 Status: Ordered MiraLax oral powder for reconstitution = 17 Gm, By Mouth, Daily, Take daily as needed for constipation, # 255 Gm, 1 Refills, Maintenance, 06/25/22 15:48:00 EST, REC Powder, [facility] #[id number], Partial fill upon patient request ifthe prescription is for a schedule II opioid drug.,... Start Date: 06/25/22 Status: Ordered MiraLax oral powder for reconstitution = 17 Gm, By Mouth, Daily, dissolve in water before taking, # 255 Gm, 0 Refills, Maintenance, 12/20/22 9:10:00 EDT, REC Powder, [facility] #[id number], Partial fill upon patient request if the prescription is for a schedule II opioid drug., 17 Gm... Start Date: 12/20/22 Status: Ordered MiraLax oral powder for reconstitution = 17 Gm, By Mouth, Daily, dissolve in water before taking. Use daily until regular bowel movements., # 255 Gm, 4 Refills, Maintenance, 11/15/22 12:51:00 EDT, REC Powder, [facility] #[id number], Partial fill upon patient request if the prescriptio... Start Date: 11/15/22 Status: Ordered ondansetron 8 mg oral tablet, disintegrating 1 tablet = 8 mg, By Mouth, 3 times a day, PRN Nausea & Vomiting, # 9 tablet, 0 Refills, Maintenance, 02/04/23 21:08:00 EDT, DIS Tablet, [facility] #[id number], Partial fill upon patient request if the [...] capsule, 0 Refills, Maintenance, 12/20/22 9:10:00EDT, Capsule, [facility] #[id number], Partial fill upon patient request if the prescription isfor a schedule II opioid drug., 168, cm, 12/20/22 8... Start Date: 12/20/22 Status: Ordered Sprintec 0.25 mg-35 mcg oral tablet 1 tablet, By Mouth, Daily, Maintenance, # 28 tablet, 12 Refills, Maintenance, 02/07/23 12:19:00 EDT, [facility] #[id number], Partial fill upon patient request if the prescription is for a schedule II opioid drug., 1 tablet By Mouth Daily,x28 days... Start Date: 02/07/23 Stop Date: 02/06/24 Status: Ordered Tylenol 325 mg oral tablet 975 mg, 3, tablet, By Mouth, Every 8 hours, # 60 tablet, Refills 0, Tot. Refills 0, Maintenance, 12/20/22 9:10:00 EDT, Route to Pharmacy Electronically, [facility] #[id number], Partial fill uponpatient request if the prescription is for a schedu... Start Date: 12/20/22 Status: Ordered Unisom 25 mg oral tablet 1 tablet = 25 mg, By Mouth, Daily at bedtime, PRN for sleep, # 32 tablet, 0 Refills, Maintenance, 07/03/22 5:15:00 EST, Tablet, [facility] #[id number], Partial fill upon patient request if the [...] Related Persons Name: KEI DUNCAN Address: home [address] [place] [address] Name: DILEEP DUNCAN Address: [id number] Address: home [address] [place] [id number] [place]
--- OUTSIDE RECORDS SUMMARY | 2023-03-26 00:45 | XMS_ITS | Continuity of Care Document ---
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 Start Date: 08/30/22 Status: Ordered docusate sodium 100 mg oral capsule 1 capsule = 100 mg, By Mouth, 2 times a day, PRN as needed for constipation, # 20 capsule, 2 Refills, Maintenance, 11/15/22 12:51:00 EDT, Capsule, [facility] #[id number], Partial fill upon patient request if the prescription is for a schedule II... Start Date: 11/15/22 Status: Ordered famotidine 20 mg oral tablet 20 mg, 1, tablet, By Mouth, 2 times a day, Take twice daily for acid reflux and to help with nauseaand vomiting., # 60 tablet, Refills 2, Tot. Refills 2, Maintenance, 10/03/22 15:40:00 EDT, Route toPharmacy Electronically, [facility] #[id number]... Start Date: 10/03/22 Status: Ordered Freestyle [...] 12/20/22 9:10:00 EDT, Route to Pharmacy Electronically, [facility] #[id number], Partial fill uponpatient request if the prescription is for a schedu... Start Date: 12/20/22 Status: Ordered MiraLax oral powder for reconstitution = 17 Gm, By Mouth, Daily, Take daily as needed for constipation, # 255 Gm, 1 Refills, Maintenance, 06/25/22 15:48:00 EST, REC Powder, [facility] #[id number], Partial fill upon patient request ifthe prescription is for a schedule II opioid drug.,... Start Date: 06/25/22 Status: Ordered MiraLax oral powder for reconstitution = 17 Gm, By Mouth, Daily, dissolve in water before taking, # 255 Gm, 0 Refills, Maintenance, 12/20/22 9:10:00 EDT, REC Powder, [facility] #[id number], Partial fill upon patient request if the prescription is for a schedule II opioid drug., 17 Gm... Start Date: 12/20/22 Status: Ordered MiraLax oral powder for reconstitution = 17 Gm, By Mouth, Daily, dissolve in water before taking. Use daily until regular bowel movements., # 255 Gm, 4 Refills, Maintenance, 11/15/22 12:51:00 EDT, REC Powder, [facility] #[id number], Partial fill upon patient request if the [...] capsule, 0 Refills, Maintenance, 12/20/22 9:10:00EDT, Capsule, [facility] #[id number], Partial fill upon patient request if the prescription isfor a schedule II opioid drug., 168, cm, 12/20/22 8... Start Date: 12/20/22 Status: Ordered Tylenol 325 mg oral tablet 975 mg, 3, tablet, By Mouth, Every 8 hours, # 60 tablet, Refills 0, Tot. Refills 0, Maintenance, 12/20/22 9:10:00 EDT, Route to Pharmacy Electronically, [facility] #[id number], Partial fill uponpatient request if the prescription is for a schedu... Start Date: 12/20/22 Status: Ordered Unisom 25 mg oral tablet 1 tablet = 25 mg, By Mouth, Daily at bedtime, PRN for sleep, # 32 tablet, 0 Refills, Maintenance, 07/03/22 5:15:00 EST, Tablet, [facility] #[id number], Partial fill upon patient request if the [...] of placental abruption Confirmed Active Confirmed Active 668[address] then 3 miscarriages Social History Social History Type Response Smoking Status Never (less than 100 in lifetime) entered on: 05/22/22 Sex Patient Care team information Care Team Personnel Name: Not on Staff, PCP Position: S Physician (General Medicine) Member Role: PCP Care Team Related Persons Name: KEI DUNCAN Address: home [address] [place] [address] Name: DILEEP DUNCAN Address: [id number] Address: home [address] [place] [address]
--- OUTSIDE RECORDS SUMMARY | 2023-03-26 00:46 | XMS_ITS | Continuity of Care Document ---
Author Name Unknown Organization [facility] ter Address [address] [place] [address]- Care Team Providers Care Fitting Room Associate Name Role Phone Not on Staff, PCP Primary Care Physician Unavail able Encounter [facility] Date(s): 12/03/22 - 12/10/[address] [address]- Encounter Diagnosis Other specified related conditions, third trimester(Final) - Discharge Disposition: A-D/C Home Attending Physician: Rowena [...] Replace Required Details, Route to Pharmacy Electronically, [facility] #[id number], Partial fill upon p... Start Date: 08/30/22 Status: Ordered docusate sodium 100 mg oral capsule 1 capsule = 100 mg, By Mouth, 2 times a day, PRN as needed for constipation, # 20 capsule, 2 Refills, Maintenance, 11/15/22 12:51:00 EDT, Capsule, [facility] #[id number], Partial fill upon patient request if the prescription is for a schedule II... Start Date: 11/15/22 Status: Ordered famotidine 20 mg oral tablet 20 mg, 1, tablet, By Mouth, 2 times a day, Take twice daily for acid reflux and to help with nauseaand vomiting., # 60 tablet, Refills 2, Tot. Refills 2, Maintenance, 10/03/22 15:40:00 EDT, Route toPharmacy Electronically, [facility] #[id number]... Start Date: 10/03/22 Status: Ordered ferrous sulfate 325 mg oral tablet 1 tablet = 325 mg, By Mouth, Daily, # 90 tablet, 1 Refills, Maintenance, 11/02/22 7:39:00 EDT, Tablet, [facility] #[id number], Partial fill upon patient request if the [...] mL, 1 Refills, Maintenance, 11/16/22 16:15:00 EDT, [facility] #[id number], Partial fill upon patient request if the prescription is for a schedule II opioid drug. This replaces p... Start Date: 11/16/22 Status: Ordered Lantus Solostar Pen 100 units/mL subcutaneous solution = 45 units, Subcutaneous Injection, Daily at bedtime, # 15 mL, 0 Refills, Maintenance, 10/22/22 14:12:00 EDT, Solution, [facility], Partial fill upon patient request if the prescriptionis for a schedule II opioid drug., 168, cm, ... Start Date: 10/22/22 Status: Ordered Lantus Solostar Pen 100 units/mL subcutaneous solution = 47 units, Subcutaneous Injection, Daily at bedtime, # 15 mL, 1 Refills, Maintenance, 11/16/22 16:15:00 EDT, Solution, [facility] #[id number], Partial fill upon patient request if the prescription is for a schedule II opioid drug. This replaces... Start Date: 11/16/22 Status: Ordered metroNIDAZOLE 0.75% topical gel 1 application, Vaginally, Daily, At night, # 70 Gm, 0 Refills, Maintenance, 12/04/22 13:55:00 EDT, [facility] #[id number], Partial fill upon patient request if the prescription is for a scheduleII opioid drug., 1 application Vaginally Daily,x5 d... Start Date: 12/04/22 Stop Date: 12/09/22 Status: Ordered MiraLax oral powder for reconstitution = 17 Gm, By Mouth, Daily, Take daily as needed for constipation, # 255 Gm, 1 Refills, Maintenance, 06/25/22 15:48:00 EST, REC Powder, [facility] #[id number], Partial fill upon patient request ifthe prescription is for a schedule II opioid drug.,... Start Date: 06/25/22 Status: Ordered MiraLax oral powder for reconstitution = 17 Gm, By Mouth, Daily, dissolve in water before taking. Use daily until regular bowel movements., # 255 Gm, 4 Refills, Maintenance, 11/15/22 12:51:00 EDT, REC Powder, [facility] #[id number], Partial fill upon patient request if the [...] 0 Refills, Maintenance, 07/03/22 5:15:00 EST, Tablet, [facility] #[id number], Partial fill upon patient request if the [...] of placental abruption Confirmed Active Confirmed Active 45656 then 3 miscarriages Results Orders for Microbiology Reports Name Date Urine Culture 12/03/22 Microbiology Reports TEST:Urine Culture STATUS:Auth (Verified) BODY SITE: SOURCE:URINE COLLECTED DATE/TIME:12/03/22 1:30 PM Urine Culture SPECIMEN DESCRIPTION : URINE CLEAN CATCH/MIDSTREAM SPECIAL REQUESTS : NONE CULTURE : Mixed bacterial migdalia, indicative of urogenital contamination. REPORT STATUS : FINAL 12/05/2022 Vital Signs Most recent to oldest [Reference Range]: 1 Weight 89.9 kg (12/03/22 2:49 PM) Oxygen Saturation [94-100 %] 100 % (12/03/22 1:03 PM) Blood Pressure [90-138/55-84 mm Hg] 120/ 67mm Hg (12/03/22 1:03 PM) Respiratory Rate [16-30 br/min] 16 br/mi n (12/03/22 1:03 PM) Temperature [96.8-100.4 DegF] 98.3 DegF (12/03/22 2:49 PM) Mode of Delivery (Oxygen) Room air (12/03/22 1:03 PM) Blood pressure sites Arm, left (12/03/22 1:03 PM) Temperature Route Oral (12/03/22 2:49 PM) Weight Obtained Via Standing scale (12/03/22 2:49 PM) Social History Social History Type Response Smoking Status Never (less than 100 in lifetime) entered on: 05/22/22 Sex Note * Event Display: Discharge/Transfer Note Hospital Authored Date: [id number] * Denisa Anthony: PERFORM Event Display: Discharge/Transfer Note Hospital Authored Date: [id number] Nursing Discharge Note Entered On: 12/03/2022 19:03 EDT Performed On: 12/03/2022 19:03 EDT by Denisa Anthony Nursing Discharge Note 2 Discharge Time : 12/03/2022 19:03 EDT Discharge Level of Care at Discharge : Home/Halfway/Foster Care Patient Left Unit Via : Ambulatory Patient Accompanied Off Unit with : Significant other DC Instructions Provided & Signed by Pt : Yes Patient Understands D/C Instructions : Yes Patient Instructions Discharge Signed : Yes Did Pt have Specialty Bed or Wound Vac : No Denisa Anthony - 12/03/2022 19:03 EDT * Denisa Anthony: PERFORM Event Display: Patient Education/Instruction Authored Date: [id number] Inpatient Adult Discharge Instructions [address] [address] Name: RUDY ORDAZ : 2000 Visit: 12/03/2022 10:47:00 Current Date: 12/03/2022 18:05 Account: [id number] Inpatient Adult Discharge Instructions We would like [...] and their families. Surveys are administered by [employer] ?? If further treatment with your primary care physician or another doctor is recommended, it is important for you to keep the appointment. Call your primary care physician or return to the Emergency Department immediately if your condition worsens, fails to improve, or new symptoms develop. If you need to find a doctor, you can call [facility] for a referral at [phone] or toll free at [phone] or log in to [email or web address].. ?? You can view and manage your care through the patient portal or by using a health care quincy of your choosing. [employer] is a website that allows you to securely view your medical information including your hospital discharge summary, office visit summaries, medications and follow-up visits. You can also request appointments, renew medications, and request access to your medical information using a health care quin[facility] of your choosing, or just ask a question. You can enroll at [email or web address] or register during your next office visit. You have been discharged from [facility], Patient Care Unit: [id number]. If you have any questions regarding these instructions after you leave, please call us and we will be happy to assist you. [facility] Your Care Team Attending Physician Rowena Schwartz DO Your Diagnosis contractions Nausea Tests Performed Below is a partial list of the tests performed during your hospitalization. You may have had other tests and procedures not included in this list. Please discuss all test results with your provider. COMPLETE URINALYSIS GLUCOSE POC Primary Care Provider Not on Staff, PCP Advance Directive Health Care Proxy on File No Discharge Vitals Temperature: 98.3 DegF Weight: 89.9 kg Respiratory Rate: 16 br/min ?? Systolic Blood Pressure: 120 mm Hg ?? Diastolic Blood Pressure: 67 mm Hg ?? Oxygen Saturation: 100 % ?? Studies Pending All tests and labs ordered during this hospital stay have been completed unless listed below. Please discuss all pending results with your provider listed above in these instructions. ?? Chlamydia/N. Gonorrhoeae TMA (NAAT) Urine Culture Vaginosis Vaginitis Panel (BV, CV/TV) What to do next Instructions From Your Doctor Discharge Orders Scheduled Follow-Up Appointments 2022 2:00 PM EDT ?? With: Phoebe Gutiérrez MD Where: [facility] - Reporting Consultant [address] [place] [address]- Status: Pending 2022 1:40 PM EDT ?? Where: [address] [address]- Status: Pending 2022 2:40 PM EDT ?? With: Phoebe Gutiérrez MD Where: [facility] Reporting Consultant [address] [place] [address]- Status: Pending 2022 4:00 PM EDT ?? With: Zaida Ashraf MD Where: [facility] Reporting Consultant [address] [place] [address]- Status: Pending 2022 3:00 PM EDT ?? With: Zaida Ashraf MD Where: [facility] Reporting Consultant [address] [place] [address]- Status: Pending You Need to Schedule the Following Appointments Follow Up with[facility] [phone] Why: Keep scheduled appointments. Call office with questions or concerns. Discharge Medications EL RUDY ORDAZ :2000 Visit Date:12/03/2022 Medications: Please continue your medications until treatment [...] oral tablet) 1 tab(s) Oral Daily Unchanged Polyethylene [...] Please discuss all test resultswith your provider. COMPLETE URINALYSIS (12/03/2022) ???Appear/Color, Urine - YELLOW???Specific [place], Urine - 1.028???pH, Urine - 6.5???Albumin, Urine - 1+???Glucose, Urine - NEGATIVE???Ketones, Urine - 4+???Bilirubin, Urine - NEGATIVE???Hemoglobin,Urine - NEGATIVE???Nitrite, Urine - NEGATIVE???Leukocyte, Urine - 2+???Urobilinogen - NORMAL???WBC's, Urine - 6 /HPF???RBC's, Urine - 3 /HPF???Bacteria - SLIGHT???Squamous Epith - 32 /HPF???Mucus - HEAVY GLUCOSE POC (12/03/2022) ???Glucose, POC - 74 mg/dL Allergies (NKA means No Known Allergies) No Known Medication Allergies Problems Active Problems??(11) Acid reflux?? Anemia?? Constipation?? Frequent headaches?? H/O gestational diabetes in prior , currently ?? History of placental abruption?? Increased nuchal translucency space on ultrasound?? Marginal insertion of umbilical cord affecting management of mother? 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 Education Materials Below is the list of Educational Leaflet Providered with your Discharge Instructions. Common Discomforts During ?? Understanding Labor?? Kick Counts?? Valuables and Belongings I fully understand and agree that [facility] accepts no responsibility for all my [...] Status?? Pulmonary Rehab Discharge Status?? Respiratory Rate: 16 br/min ? Common Emergency Awareness Tips IS [...] are strongly encouraged to quit. Please call [facility] Link at [phone] or [phone]) or log in to [email or web address] for referrals to smoking cessation programs. ?? 852 Suicide & Crisis Lifeline is available 26/11 if you or someone you know needs to find a reason to keep living. By calling 667 you'll be connected to a skilled, trained counselor at a crisis center in your area. INPATIENT DISCHARGE INSTRUCTIONS SIGNATURE PAGE RUDY WILKINS Location:[facility] Registration Date and Time:12/03/2022 10:47 EDT Primary Care Physician: Not on Staff, PCP Attending Physician: Rowena Schwartz DO, I RUDY WILKINS, have received the above patient education materials/instructions and have verbalized understanding. If ambulance or transport services are being used I further acknowledge beinggiven a choice of service. ?? If you need to contact me, please call me at this number: . Patient/Cad Draftsman Name: Patient/Cad Draftsman Signature: Relationship to Patient: Witness Name/Signature: Date: * Denisa Anthony: PERFORM Event Display: Patient Education Leaflets Authored Date: [id number] Common Discomforts During ?? [id number] Common Discomforts During Symptoms of discomfort due to vary from person to person. Below are some common discomforts. But each [id number] may have different symptoms or none at [...] and nutrition. Call your healthcare provider or lead software qa engineer if you are having constant or severe [...] Always check with your healthcare provider or lead software qa engineer before using any medicine to treat this [...] swelling. Be sure to notify your??healthcare provider??or lead software qa engineer about sudden swelling, especially in the hands [...] Always talk with your healthcare provider or lead software qa engineer before taking any medicine for this condition.? [...] Always check with your healthcare provider or lead software qa engineer before taking any medicine for this condition.? [...] Always talk with your healthcare provider or lead software qa engineer??before taking any medicine for this condition. If you have a severe headache or a headache that does notgo away, call your healthcare provider. It may be a sign of preeclampsia.?? Last Reviewed Date: 2022 ?? 2191-6254 [employer]. All rights reserved. This information is not intended as a substitute for professional medical care. Always follow your healthcare professional's instructions. ?? * Denisa Anthony: PERFORM Event Display: Patient Education Leaflets Authored Date: [id number] Understanding Labor ?? 37309 Understanding Labor Going into labor before week 37 of is called labor. labor can cause your baby to be born too soon. This can lead to health problems for your baby. Before labor, the cervix is thick and closed. In labor, the cervix begins to efface (thin) and dilate (open). Symptoms of labor If you think you???re having labor, get medical help right away. Contractions alone don???tmean you???re in labor. What matters more are changes in your cervix. The cervix is the opening at the lower end of the uterus. Symptoms of labor include: ??? 4 or more contractions per hour ??? Strong contractions ??? Constant menstrual-like cramping ??? Low-back pain ??? Mucous orbloody fluid from the vagina ??? Bleeding or spotting in the second or third trimester ?? Evaluating labor Your??healthcare provider??will try to find out if you???re in labor or just having contractions. They may watch you for a few hours. You may have these tests: ??? Pelvic exam. This is??to see if your cervix has effaced (thinned) and dilated (opened). ??? Uterine activity monitoring. This is used??to detect contractions. ??? monitoring. This is??done to check the health of your baby. ??? Ultrasound. This test looks at your baby???s size and position. ??? Amniocentesis. This test??checks how mature your baby???s lungs are. ?? Caring for yourself at home If you have contractions, but your cervix is still thick and closed, your healthcare provider may tell you to: ??? Drink plenty of water. ??? Do fewer activities. ??? Rest in bed on your side. ??? Don't have intercourse or stimulate your nipples. ?? When to call your healthcare provider Call your healthcare provider if you have any of these: ??? 4 or more contractions per hour ??? Bagof water breaks ??? Bleeding or spotting ?? If you need hospital care labor often means that you need hospital care. You may need complete bed rest. You may havean IV (intravenous) line in your arm or hand. This is to give you fluids. You may be given pills orinjections. These are done to help prevent contractions. You may get a medicine called a corticosteroid.??This is to help your baby???s lungs mature more quickly. ?? Are you at risk? Any woman can have labor. It may start for no reason. But these risk factors can increase your chances: ??? Past labor or early ??? Smoking, drug, or alcohol use in ??? A multiple (twins or more) ??? Problems with the shape of the uterus ??? Bleeding during the ?? The dangers of A baby born too soon may have health problems. This is because the baby didn???t have enough time to grow. Some of the risks for your baby include: ??? Not or feeding well ??? Having immature lungs ??? Bleeding in the brain ? Reaching term Your goal is to get as close to term (week 37 or later) as you can before giving . The closer you get to term, the??higher your chance of having a healthy baby. Work with your healthcare provider. Together, you can take steps that may keep you from giving too early. ?? Last Reviewed Date: 2021 ?? 3052-5717 [employer]. All rights reserved. This information is not intended as a substitute for professional medical care. Always follow your healthcare professional's instructions. ?? * Denisa Anthony: PERFORM Event Display: Patient Education Leaflets Authored Date: [id number] Kick Counts ?? [address] Kick Counts It???s normal to worry about your baby???s health. Generally, you will feel your baby start to movein your 2nd trimester at around 16 to 24 weeks. Getting to know the pattern of your baby's movements is one way to know what's normal for you and baby. This is called a kick count. Talk with your healthcare provider about kick counts and your specific situation. Always follow your provider's instructions. How to count kicks Here is just one way to do kick counts. Always follow your healthcare provider's instructions. Starting at 28 weeks, count your baby's movements daily. Time how long it takes you to feel 10 kicks, flutters, swishes, or rolls. Ideally, you want to feel at least 10 movements in 2 hours. You will likely feel 10 movements in less time than that. Here are tips for counting kicks: ??? Choose a time when the baby is active, such as after a meal.? Sit comfortably or lie on your side.? The first time the baby moves,??write down??the time.? Count each movement until the baby has moved?? 10??times. This can take from 20 minutes to 2??hours.? If you haven't felt 10 kicks by the end of the second hour, wait a few hours. Then try again. ??? Try to do it at the same time each day. ?? When to call your healthcare provider Follow your provider's instructions about when to call about your baby's movements. Don't hesitate to call if you have concerns. Call your healthcare provider?? right away??if: ??? You do a couple sets of kick counts during the day and your baby moves fewer than 10??times in??2??hours. ??? Your baby moves much less often than on the??days before. ??? You haven't felt your baby move all day. ?? Last Reviewed Date: 2022 ?? 4678-8671 [employer]. All rights reserved. This information is not intended as a substitute for professional medical care. Always follow your healthcare professional's instructions. ?? Patient Care team information Care Team Personnel Name: Not on Staff, PCP Position: S Physician (General Medicine) Member Role: PCP Care Team Related Persons Name: PERLA KEI Address: [address] [place] [id number]
--- OUTSIDE RECORDS SUMMARY | 2023-03-26 00:46 | XMS_ITS | Continuity of Care Document ---
Author Name Unknown Organization [facility] ter Address [address] [place] [phone] Care Team Providers Care Assistant Department Manager Name Role Phone Not on Staff, PCP Primary Care Physician Unavail able Encounter [facility] Date(s): 04/14/22 - 04/15/[address] [address]- Encounter Diagnosis Chest wall pain(Final) - 04/14/22 Discharge Disposition: A-D/C Home Attending Physician: Palma Gutiérrez MD Admitting Physician: Palma Gutiérrez MD Referring Physician: Not on Staff, Referring [...] 01/22/22 13:08:00 EDT, Route to Pharmacy Electronically, [facility][id number], Partial fill upon patient request if the prescription is for a sched... Start Date: 01/22/22 Status: Ordered ondansetron 4 mg oral tablet, disintegrating 1 tablet = 4 mg, By Mouth, Every 8 hours, PRN Nausea & Vomiting, # 10 tablet, 0 Refills, Maintenance, 08/05/21 18:51:00 EDT, Tablet, [id number], Partial fill upon patient requestif the prescription [...] 0 Refills, Maintenance, 01/22/22 13:08:00 EDT, Tablet, [facility] #[id number], Partial fill upon patient request if the [...] opioid drug. Start Date: 03/07/22 Status: Ordered Results Radiology Reports * Exam Date Time Procedure Performing Provider Status 04/14/22 8:52 PM Chest 2 Views Frontal and Lat Fatimah Wolf; Auth (Verified) Notes: (Chest 2 Views Frontal and Lat) Reason For Exam: Shortness of Breath, Fever;Other: RESULT: Chest 2 Views Frontal and Lat Chest 2 Views Frontal and Lat Hx of Present Illness: L shoulder pain x 2 weeks going into arm and chest. Intermittant shortness of breath and feeling faint; Reason: Other:; Shortness of Breath, Fever; Clinical Question(s): Pneumonia COMPARISON: None. FINDINGS: LINES AND TUBES: None. LUNGS AND PLEURA: Clear lungs. Normal pulmonary vascularity. No pleural effusion. No pneumothorax. HEART, MEDIASTINUM AND VARSHA: Heart is normal in size. Normal mediastinal and hilar contour. BONES AND SOFT TISSUES: No acute abnormality. IMPRESSION: No acute abnormality. WSN: [id number] Ordering Physician: Palma Gutiérrez Dictated By: Tramaine Portillo MD Dictated Date/Time: 04/14/22 8:53 pm Reviewed By: Tramaine Portillo MD Signed By: Tramaine Portillo MD Signed Date/Time: 04/14/22 8:53 pm Transcribed By: NANCY Transcribed Date/Time: 04/14/22 8:53 pm Vital Signs Most recent to oldest [Reference Range]: 1 2 3 Height 196 cm (04/15/22 12:01 AM) 196 cm (04/14/22 3:43 PM) 196 cm (04/14/22 3:07 PM) Weight 89.5 kg (04/15/22 12:01 AM) 89.5 kg (04/14/22 3:43 PM) 89.5 kg (04/14/22 3:07 PM) Oxygen Saturation [94-100 %] 98 % (04/15/22 12:01 AM) 100 % (04/14/22:22 PM) 98 % (04/14/22: PM) Pulse Rate [55-90 bpm] 61 bpm (04/15/22 12:01 AM) 75 bpm (04/14/22:22 PM) 71 bpm (04/14/22:22 PM) Body Mass Index [18.5-24.99 kg/m2] 23.3 kg/m2 (04/15/22 12:01 AM) 23.3 kg/m2 (04/14/22 3:07 PM) Blood Pressure [90-138/55-84 mm Hg] 115/85mm Hg (04/15/22 12:01 AM) 134/74mm Hg (04/14/22:22 PM) 124/73mm Hg (04/14/22:22 PM) Respiratory Rate [16-30 br/min] 16 br/min (04/15/22 12:01 AM) 16 br/min (04/14/22:22 PM) 18 br/min (04/14/22 3:07 PM) Temperature [96.8-100.4 DegF] 97.7 DegF (04/15/22 12:01 AM) 97.7 DegF (04/14/22 8:22 PM) 98.3 DegF (04/14/22:22 PM) Mode of Delivery (Oxygen) Room air (04/15/22 12:01 AM) Room air (04/14/22 8:22 PM) Room air (04/14/22 5:22 PM) Blood pressure sites Arm, left (04/15/22 12:01 AM) Arm, right (04/14/22 8:22 PM) Arm, right (04/14/22 5:22 PM) Temperature Route Oral (04/15/22 12:01 AM) Oral (04/14/22 8:22 PM) Oral (04/14/22 5:22 PM) Dry Weight 89.5 kg (04/15/22 12:01 AM) 89.5 kg (04/14/22 3:43 PM) 89.5 kg (04/14/22 3:07 PM) Weight Obtained Via Patient/family state d (04/14/22 3:07 PM) Dry Weight Obtained Via Patient/family s tated (04/14/22 3:07 PM) Social History Social History Type Response Smoking Status Never (less than 100 in lifetime) entered on: 08/05/21 Sex EKG study * Event Display: EKG Authored Date: * Event Display: ECG 12-Lead Authored Date: Please click on pdf link to open report * Event Display: ECG 12-Lead Authored Date: Ventricular Rate: 75 BPM Atrial Rate: 75 BPM P-R Interval: 138 ms QRS Duration: 88 ms Q-T Interval: 370 ms QTC Calculation(Bazett): 413 ms P [place]: 64 degrees R [place]: 73 degrees T [place]: 57 degrees Normal sinus rhythm with sinus arrhythmia Normal ECG When compared with ECG of 22-JAN-2022 08:33, Vent. rate has decreased BY 37 BPM T wave inversion no longer evident in Inferior leads Confirmed by SYDNEY MACKAY DO ([id number]) on 04/15/2022 10:08:19 AM [place]: SYDNEY MACKAY DO Note * Krystyna Zhong MD, Palma: PERFORM Event Display: Patient Education Leaflets Authored Date: Chest Wall Pain: Costochondritis ?? [id number] Chest Wall Pain: Costochondritis The chest pain [...] provider ?? Last Reviewed Date: 2021 ?? [id number] [employer]. All rights reserved. This information is not intended as a substitute for professional medical care. Always follow your healthcare professional's instructions. ?? * [employer] , CIS S: TRANSCRIBE Tramaine Portillo MD: VERIFY Event Display: Result: Authored Date: [id number] Chest 2 Views Frontal and Lat Hx of Present Illness: L shoulder pain x 2 weeks going into arm and chest. Intermittant shortness of breath and feeling faint; Reason: Other:; Shortness of Breath, Fever; Clinical Question(s): Pneumonia COMPARISON: None. FINDINGS: LINES AND TUBES: None. LUNGS AND PLEURA: Clear lungs. Normal pulmonary vascularity. No pleural effusion. No pneumothorax. HEART, MEDIASTINUM AND VARSHA: Heart is normal in size. Normal mediastinal and hilar contour. BONES AND SOFT TISSUES: No acute abnormality. IMPRESSION: No acute abnormality. WSN: [id number] Ordering Physician: Palma Gutiérrez Dictated By: Tramaine Portillo MD Dictated Date/Time: 04/14/22 8:53 pm Reviewed By: Tramaine Portillo MD Signed By: Tramaine Portillo MD Signed Date/Time: 04/14/22 8:53 pm Transcribed By: NANCY Transcribed Date/Time: 04/14/22 8:53 pm Patient Care team information Care Team Personnel Name: Not on Staff, PCP Position: [facility] Physician (General Medicine) Member Role: PCP Name: Palma Gutiérrez MD Position: [facility] ED Medicine MD Member Role: ED Attending Physician Address: Address: [address] [place] [address] [place] [address]- [place] Name: Gabrielle Carver RN Position: S ED RN W/OE and Tasks Member Role: Patient Care Provider Care Team Related Persons Name: SHAR DUNCANGIA Address: home [address] [place] [id number]
[2023-03-26 00:55] LABS: Alanine Aminotransferase 15 U/L (0-31); Albumin Level 3.7 g/dL (3.5-5.0); Alkaline Phosphatase 96 U/L (39-117); Anion Gap 10 (12-20); Aspartate Amino Transferase 14 U/L (5-31); Bilirubin Total 0.2 mg/dL (0.0-1.0); Blood Urea Nitrogen 10 mg/dL (9-16); Calcium 8.8 mg/dL (8.4-10.2); Carbon Dioxide 25 mmol/L (22-29); Chloride 109 mmol/L (96-108); Creatinine Clr Calc Pharmacy 136.3; Estimated Glomerular Filt Rate > 60; Glucose Random 117 mg/dL (60-115); Potassium 3.6 mmol/L (3.3-5.1); Sodium 140 mmol/L (135-145); Total Protein 6.8 g/dL (6.5-8.0)
[2023-03-26] MEDS: Milk of Magnesia 30 ML ORAL.SUSP PO (01:04)
== END 2023-03-26 01:08 | disposition home or self-care (01) ==
PROVIDERS: Emergency Provider Internal Medicine
DX: K64.9 Unspecified hemorrhoids (principal); K59.00 Constipation, unspecified; Z79.899 Other long term (current) drug therapy
CPT/HCPCS: 36415; 80053; 85025; 99283; 99284

== ENCOUNTER 2023-04-28 10:43 | Emergency (ER) | payer MEDICAID, SELFPAY ==
[2023-04-28 11:02] VITALS: BP 101/69; PULSE 93; RESP 18; TEMP 37.6; O2SAT 98; BMI 29.9
[2023-04-28 11:32] LABS: MANUAL DIFF FLAG NO
[2023-04-28 11:35] LABS: Basophils Percent Auto 0.2 % (0-2); Eosinophils Absolute Auto 0.1 X10*3/uL (0.0-0.4); Eosinophils Percent Auto 2.3 % (0-4); Hemoglobin 12.9 g/dl (12.0-16.0); Imm Gran Abs Auto 0.01 X10*3/uL (0.00-0.03); Imm Gran Pct Auto 0.2 % (0.0-0.4); Lymphocytes Absolute Auto 0.8 X10*3/uL (1.2-4.9); Lymphocytes Percent Auto 16.2 % (20-40); Mean Corpuscular HGB Conc 32.3 g/dl (31.0-35.0); Mean Corpuscular Volume 80.6 fL (80.0-98.0); Mean Platelet Volume 9.3 fL (9.4-12.3); Monocytes Absolute Auto 0.6 X10*3/uL (0.1-1.2); Monocytes Percent Auto 13.4 % (2-11); Neutrophils Absolute Auto 3.2 x10*3/uL (2.0-8.3); Neutrophils Percent Auto 67.7 % (45-73); Platelet Count 274 X10*3/uL (160-400); Red Blood Count 4.96 X10*6/uL (4.20-5.50); Red Cell Distribution Width 14.9 % (11.0-16.0); White Blood Count 4.7 X10*3/uL (4.8-10.8)
[2023-04-28 11:36] LABS: Appearance Urine Turbid; Color Urine Yellow; Glucose Urine UA Negative (Negative); Leukocyte Esterase Urine Small (1+) (Negative); Nitrite Urine Negative (Negative); PH 5.5 (5.0-9.0); Specific Gravity - Urine >= 1.030 (1.005-1.025); UMIC TRIGGER UACC YES; Urine Blood Negative (Negative); Urine Ketones Trace mg/dL (Negative); Urine Protein Negative (Neg-Trace)
[2023-04-28 11:37] LABS: UPreg QC Valid YES; Urine Pregnancy POSITIVE (NEGATIVE)
[2023-04-28 11:48] LABS: Bacteria Urine Trace (None Seen); Hyaline Casts Urine 0-2 /LPF (0-2); RBC Urine 0-2 /HPF (0-2); Squamous Epithelial Cell Urine >20 /HPF (0-2); UACC Culture Trigger YES
[2023-04-28 11:53] LABS: COVID-19 Test Negative (Negative); IDNOW Serial# 08D9AD1C; IDNOW Serial# BCCEAD1C; Influenza A Positive (Negative); Influenza B2 Negative (Negative)
[2023-04-28 11:56] LABS: Alanine Aminotransferase 15 U/L (0-31); Alkaline Phosphatase 97 U/L (39-117); Anion Gap 12 (12-20); Aspartate Amino Transferase 15 U/L (5-31); Bilirubin Total 0.3 mg/dL (0.0-1.0); Blood Urea Nitrogen 9 mg/dL (9-16); Carbon Dioxide 22 mmol/L (22-29); Chloride 108 mmol/L (96-108); Creatinine Clr Calc Pharmacy 127.3; Estimated Glomerular Filt Rate > 60; Glucose Random 97 mg/dL (60-115); Lipase 26 U/L (8-78); Potassium 3.7 mmol/L (3.3-5.1); Sodium 138 mmol/L (135-145); Total Protein 7.4 g/dL (6.5-8.0)
[2023-04-28 12:36] LABS: HCG Quantitative 361 mIU/mL
--- NOTE | 2023-04-28 13:22 | ED_ITS ---
HPI - Nausea/Vomiting/Diarrhea General Chief complaint: Nausea/Vomiting/Diarrhea Stated complaint: Nausea, dizziness, headache Time Seen by Provider: 04/28/23 11:34 Source: patient Mode of arrival: ambulatory History of Present Illness HPI Narrative: This is a 23-year-old female who is 4 months and reports 6-7 days of headache, nausea, vomiting, decreased appetite and reports some diarrhea. Patient reports that she is on control. Related Data Previous Rx's Medication Instructions Recorded hydroxyzine HCl 25 mg tablet 25 mg PO Q6-8H PRN itching #20 tabs 07/23/21 cefuroxime axetil 250 mg tablet 250 mg PO BID #14 tabs 12/19/21 hydrocortisone acetate 25 mg 25 mg [place] BID #24 ea 03/26/23 rectal suppository (Anusol-HC) polyethylene glycol 3350 17 17 g PO DAILY #510 grams 03/26/23 gram/dose oral powder (Miralax) ondansetron HCl 4 mg tablet 4 mg PO Q8H PRN nausea and 04/28/23 vomiting 4 days #14 tabs Allergies Allergy/AdvReac Type Severity Reaction Status Date / Time No Known Allergies Allergy Verified 03/26/23 00:21 Review of Systems 2 Review of Systems: Pertinent positives and negatives as stated in HPI PMFSH Past Medical History Source: nursing notes reviewed Social History Social History Advance Directives: No Advance Directives Information Provided: Yes Physical Exam 2 Vital Signs: Vital Signs: Last Vital Signs Temp 99.7 F 04/28/23 11:02 Pulse 93 04/28/23 11:02 Resp 18 04/28/23 11:02 BP 101/69 04/28/23 11:02 Pulse Ox 98 04/28/23 11:02 O2 Del Method Room Air 04/28/23 11:02 BMI result Body Mass Index 29.9 VITAL SIGNS: Reviewed. GENERAL: Well developed, well nourished, in no acute distress. HEAD: Normocephalic/atraumatic EYES: PERRLA, EOMI EARS: Ext canals without abnormality, TMs non-bulging and non-erythematous NOSE: Nares patent bilateral OROPHARYNX: no oral lesions noted, posterior pharynx clear and non-erythematous without noted tonsillar enlargement/erythema/exudates NECK: Supple, no adenopathy LUNGS: Normal breath sounds. No adventitious sounds or accessory muscle use. SpO2<98> CARDIOVASCULAR: Regular rate and rhythm without noted murmurs ABDOMEN: Soft, non-tender, non-distended with bowel sounds. MUSCULOSKELETAL: No tenderness, deformities, or effusions noted on gross inspection. EXTREMITIES: No cyanosis, clubbing or edema. SKIN: Inspection of the skin reveals no rashes NEUROLOGIC: Alert and oriented x 4. Strength and sensation to light touch were grossly intact x 4. Medical Decision Making Medical Decision Making [facility] Narrative: 23-year-old female with history and clinical presentation, DDX: Viral syndrome, UTI, gastroenteritis a viral etiology, lower clinical suspicion for given patient currently on control. I reviewed all investigations and hematologic indices are negative for leukocytosis or left shift, there is no anemia or thrombocytopenia. Chemistry indices are grossly within normal limits and there are no derangements. Baby hCG-361 with a positive urine test. Urinalysis is a contaminated sample and despite patient being I will not empirically treat for a urinary tract infection. I did discuss all results and findings with the patient at bedside she understands that she will need to stop all control measures at this time. Viral testing is positive for influenza A but patient is on day 6/7 and recommended Tylenol for symptoms and will discharge with a prescription for Zofran. Patient is otherwise discharged with viral illness, influenza A positive, positive. Differential Diagnosis Differential Diagnoses: The differential diagnosis associated with the presentation includes Please see the discussion above Admission/Observation Consideration of admission/observation: Escalation of care including admission/observation considered Please see the discussion above Lab Data [facility] Lab Attestation statement: I reviewed the patient's lab results. Please see the discussion above 04/28/23 11:27 04/28/23 11:27 Labs: Lab Results 04/28/23 04/28/23 Range/Units 11:25 11:27 WBC 4.7 L (4.8-10.8) X10*3/uL RBC 4.96 (4.20-5.50) X10*6/uL Hgb 12.9 (12.0-16.0) g/dl Hct 40.0 (37.0-47.0) % MCV 80.6 (80.0-98.0) fL MCH 26.0 L (27.0-33.0) pg MCHC 32.3 (31.0-35.0) g/dl RDW 14.9 (11.0-16.0) % Plt Count 274 (160-400) X10*3/uL MPV 9.3 L (9.4-12.3) fL Immature Gran % (Auto) 0.2 (0.0-0.4) % Neut % (Auto) 67.7 (45-73) % Lymph % (Auto) 16.2 L (20-40) % Morgan % (Auto) 13.4 H (2-11) % Eos % (Auto) 2.3 (0-4) % Baso % (Auto) 0.2 (0-2) % Lymph # (Auto) 0.8 L (1.2-4.9) X10*3/uL Morgan # (Auto) 0.6 (0.1-1.2) X10*3/uL Eos # (Auto) 0.1 (0.0-0.4) X10*3/uL Baso # (Auto) 0.0 (0.0-0.2) X10*3/uL Abs Immat Gran (auto) 0.01 (0.00-0.03) X10*3/uL Absolute Neuts (auto) 3.2 (2.0-8.3) x10*3/uL Absolute Nucleated RBC 0.000 (0.0-0.012) X10*3/uL Nucleated RBC % (auto) 0.0 (0.0-0.2) /100WBC Sodium 138 (135-145) mmol/L Potassium 3.7 (3.3-5.1) mmol/L Chloride 108 (96-108) mmol/L Carbon Dioxide 22 (22-29) mmol/L Anion Gap 12 (12-20) BUN 9 (9-16) mg/dL Creatinine 0.75 (0.5-1.4) mg/dL Estim Creat Clear Calc 127.3 Estimated GFR > 60 Random Glucose 97 (60-115) mg/dL Calcium 9.0 (8.4-10.2) mg/dL Total Bilirubin 0.3 (0.0-1.0) mg/dL AST 15 (5-31) U/L ALT 15 (0-31) U/L Alkaline Phosphatase 97 (39-117) U/L Total Protein 7.4 (6.5-8.0) g/dL Albumin 4.0 (3.5-5.0) g/dL Lipase 26 (8-78) U/L Beta HCG, Quant 361 mIU/mL Urine Color Yellow Urine Appearance Turbid Urine pH 5.5 (5.0-9.0) Ur Specific [place] >= 1.030 H (1.005-1.025) Urine Protein Negative (Neg-Trace) mg/dL Urine Glucose (UA) Negative (Negative) mg/dL Urine Ketones Trace (Negative) mg/dL Urine Blood Negative (Negative) Urine Nitrite Negative (Negative) Ur Leukocyte Esterase Small (1+) H (Negative) Urine RBC 0-2 (0-2) /HPF Urine WBC 6-10 (0-5) /HPF Ur Squamous Epith Cells >20 (0-2) /HPF Urine Bacteria Trace (None Seen) Hyaline Casts 0-2 (0-2) /LPF Urine Test POSITIVE H (NEGATIVE) COVID-19 (TITO) Negative (Negative) COVID-19 Clin Com See Note Influenza Type A (DAVIS) Positive A (Negative) Influenza Type B (DAVIS) Negative (Negative) Influenza A & B Note See Note External Record Review External record reviewed: Outpatient record, Prior outpatient labs and Prior outpatient radiology Discharge Plan Discharge Clinical Impression: Viral syndrome, , Influenza A Patient Disposition: Home, Self-Care Instructions: (ED), Influenza (ED), Viral Syndrome (ED) Additional Instructions: 1. Recommend [id number] Tylenol for headache, temperatures greater than 100.4, body aches. 2. I have given you prescription for nausea control. 3. Your test is positive today and you need to stop the control. 4. Please follow-up with a primary care doctor or an real estate sales associate at your earliest convenience. Return to the emergency room for any worsening symptoms. Prescriptions: New ondansetron HCl 4 mg tablet 4 mg PO Q8H PRN (Reason: nausea and vomiting) 4 Days Qty: 14 0RF No Action hydroxyzine HCl 25 mg tablet 25 mg PO Q6-8H PRN (Reason: itching) Qty: 20 0RF cefuroxime axetil 250 mg tablet 250 mg PO BID Qty: 14 0RF polyethylene glycol 3350 [Miralax] 17 gram/dose powder 17 g PO DAILY Qty: 510 0RF hydrocortisone acetate [Anusol-HC] 25 mg suppository 25 mg WI BID Qty: 24 0RF Referrals: Marielle Hayes MD [Primary Care Provider] -
[2023-04-28 13:54] VITALS: BP 132/76; PULSE 102; RESP 12; TEMP 36.9; O2SAT 98
== END 2023-04-28 14:05 | disposition home or self-care (01) ==
PROVIDERS: Emergency Provider Student in an Organized Health Care Education/Training Program; PCP Family Medicine
DX: O98.519 Other viral diseases complicating pregnancy, unspecified trimester (principal); B34.9 Viral infection, unspecified; O99.519 Diseases of the respiratory system complicating pregnancy, unspecified trimester; J10.1 Influenza due to other identified influenza virus with other respiratory manifestations; Z3A.00 Weeks of gestation of pregnancy not specified; Z11.52 Encounter for screening for COVID-19
CPT/HCPCS: 80053; 81001; 81025; 83690; 84702; 85025; 87086; 87502; 87635; 99283

== ENCOUNTER 2023-05-30 22:25 | Outpatient (REF) | payer MEDICAID, SELFPAY | END 2023-05-30 22:26 | disposition home or self-care (01) | LOC: HO.HHCLNP 22:25 | PROVIDERS: Visit Provider Family Medicine | DX: R10.9 Unspecified abdominal pain (principal) | CPT/HCPCS: 87338 ==

== ENCOUNTER 2023-12-10 13:14 | Outpatient (REF) | payer MEDICAID, SELFPAY ==
[2023-12-10 15:36] LABS: Bacterial Vaginosis PCR NEGATIVE (Negative); Candida Group PCR DETECTED (Not Detect); Candida glab krusei PCR NOT DETECTED (Not Detect); Trichomonas vaginalis PCR NOT DETECTED (Not Detect)
[2023-12-10 16:06] LABS: CT PCR NOT DETECTED (Not Detect.); NG PCR NOT DETECTED (Not Detect.)
== END 2023-12-10 13:15 | disposition home or self-care (01) ==
LOC: HO.CHCLNP 13:14
PROVIDERS: Visit Provider Internal Medicine
DX: B37.31 Acute candidiasis of vulva and vagina (principal)
CPT/HCPCS: 0352U; 87491; 87591

== ENCOUNTER 2023-12-16 17:52 | Outpatient (REF) | payer MEDICAID, SELFPAY ==
[2023-12-17 11:33] LABS: Bacterial Vaginosis PCR NEGATIVE (Negative); Candida Group PCR NOT DETECTED (Not Detect); Candida glab krusei PCR NOT DETECTED (Not Detect); Trichomonas vaginalis PCR NOT DETECTED (Not Detect)
== END 2023-12-16 17:53 | disposition home or self-care (01) ==
LOC: HO.HHCLNP 17:52
PROVIDERS: Visit Provider Internal Medicine Geriatric Medicine
DX: B37.31 Acute candidiasis of vulva and vagina (principal)
CPT/HCPCS: 0352U

== ENCOUNTER 2023-12-17 18:34 | Emergency (ER) | payer MEDICAID, SELFPAY ==
--- NOTE | ~2023-12-17 | XR_ITS ---
EXAMINATION: XR LUMBOSACRAL SPINE CLINICAL INFORMATION: Low back pain, fall. COMPARISON: None available. TECHNIQUE: Three views of the lumbosacral spine. FINDINGS: Mild right apical curvature of the lumbar spine. No evidence of acute compression deformity or subluxation. Intervertebral disc heights are maintained. Normal appearance of the posterior elements. SI joints are symmetric. No significant paraspinal soft tissue abnormality. XR/XR lumbar spine 2-3V IMPRESSION: No significant radiographic abnormality.
[2023-12-17 18:44] VITALS: BP 128/64; PULSE 92; RESP 18; TEMP 36.8; O2SAT 100; BMI 30.7
--- NOTE | 2023-12-17 18:45 | ED_ITS ---
HPI - Back Pain/Injury General Chief Complaint: Back Pain/Injury Stated Complaint: back spasm/pain Time Seen by Provider: 12/17/23 19:04 Source: patient, RN notes reviewed and old records reviewed Mode of arrival: wheelchair Limitations: no limitations History of Present Illness ED Provider: Jose SCOTT Narrative: 23-year-old female presents for evaluation of lower back pain. Patient reports she has had lower back pain for the last few hours. Patient states that she was changing her baby's diaper. She states that while turning she heard a crack in her lower back. The immediate pain caused her to fall to the floor. She called the ambulance and was transported to [facility]. She reports that from there she was ?waiting for a while and they were not listening to me so I came here instead. ? She denies any numbness, tingling. She reports that her pain radiates into both of her legs Her pain is 10/10 and is uncomfortable for her to sit, stand or lie down The patient is 1 month Related Data Previous Rx's ?Medication ?Instructions ?Recorded hydroxyzine HCl 25 mg tablet 25 mg PO Q6-8H PRN itching #20 tabs 07/23/21 cefuroxime axetil 250 mg tablet 250 mg PO BID #14 tabs 12/19/21 hydrocortisone acetate 25 mg 25 mg [place] BID #24 ea 03/26/23 rectal suppository (Anusol-HC) polyethylene glycol 3350 17 17 g PO DAILY #510 grams 03/26/23 gram/dose oral powder (Miralax) ondansetron HCl 4 mg tablet 4 mg PO Q8H PRN nausea and 04/28/23 vomiting 4 days #14 tabs dexamethasone 4 mg tablet 4 mg PO BID #6 tabs 12/17/23 morphine 15 mg immediate release 15 mg PO Q8H PRN severe pain 12/17/23 tablet (scale score 7-10) #12 tabs Allergies Allergy/AdvReac Type Severity Reaction Status Date / Time No Known Allergies Allergy Verified 12/17/23 18:45 Review of Systems Constitutional: Constitutional: Denies body ache(s), Denies chills and Denies headache(s) ENT: Denies headache(s) Cardiovascular: Cardiovascular: Denies chest pain and Denies dyspnea Respiratory: Respiratory: Denies cough and Denies dyspnea Gastrointestinal: Gastrointestinal: Denies abdominal pain, Denies nausea and Denies vomiting Musculoskeletal: Musculoskeletal: Reports back pain and Reports radiating pain into limb Integumentary/Breasts: Skin/Breast: Denies rash Neurologic: Denies headache(s) PMFSH Social History Social History Advance Directives: No Advance Directives Information Provided: No Do you have a plan to hurt others: No Plan Physical Exam Vital Signs: Vital Signs: Last Vital Signs Temp 98.1 F 12/17/23 22:41 Pulse 70 12/17/23 22:41 Resp 20 12/17/23 22:41 BP 118/76 12/17/23 22:41 Pulse Ox 97 12/17/23 22:41 O2 Del Method Room Air 12/17/23 22:41 BMI result Body Mass Index 30.7 Const: General: healthy appearing, alert, awake and acute distress mild Nutritional Appearance: well nourished Orientation/consciousness: patient oriented x3 HEENT: Head: Yes normocephalic and Yes atraumatic Eyes: Eyelids: Yes eyelids normal Conjunctivae: conjunctivae normal Sclerae: sclerae normal Corneas: corneas normal Pupils: Equal, round and reactive pupils present EOM: EOMs intact bilaterally Neck: Neck: Yes full ROM Resp: Effort & Inspection: normal respiratory effort, able to speak in complete sentences and not labored GI: Inspection: No distended Palpation (GI): Soft to palpation, not firm, nontender, no guarding and not rigid Back/Spine/Pelvis: Other: Patient has tenderness across the lumbar spine and paraspinous region. No step- offs or deformities. Straight leg raise positive bilaterally. Skin: General skin exam: elasticity normal Neuro: General: patient oriented x3 Cranial nerves: Yes Equal, round and reactive pupils present and Yes Bilaterally intact EOM present Cognition (Neuro): normal cognition Course Course Course Narrative: This is a Rapid Medical Examination (RME) performed by Otoniel Hopkins PA-C in triage. Full HPI, ROS, assessment and treatment plan per primary provider in the Main ED. 23 yo female presenting to the ER for evaluation of lower back pain that started today. She reports feeling a pop or crack today when she was changing her baby's diaper and she fell to the ground. Pain radiates to both of the lower extremities. No numbness or tingling in the legs. Difficulty standing, walking and sitting. Plan: XR lumbar spine, UA, treat pain and reassess Reevaluation(s) Reevaluation #1: Patient feels much better after receiving a few doses of analgesia as well as steroids. She is able to stand and ambulate without assistance at this time. She is comfortable with discharge. She is generally her child but is currently holding breast milk due to being on antibiotics. I encouraged her to continue to withhold breast-feeding and feed the baby with formula while she is taking narcotics. Time: 23:25 Medications Administered Discontinued Medications Generic Name Dose Route Start Last Admin Trade Name Corbyq PRN Reason Stop Dose Admin Hydromorphone HCl 1 mg 12/17/23 22:03 12/17/23 22:31 Hydromorphone Hcl 1 Mg/Ml Syringe IVPUSH 12/17/23 22:04 1 mg ONCE ONE Administration Protocol Methylprednisolone Sodium Succinate 125 mg 12/17/23 19:38 12/17/23 20:18 Methylprednisolone Sod Succ 125 Mg/2 Ml Vial IVPUSH 12/17/23 19:39 125 mg ONCE ONE Administration Morphine Sulfate 4 mg 12/17/23 19:38 12/17/23 20:18 Morphine Sulfate 4 Mg/Ml Cartridge IVPUSH 12/17/23 19:39 4 mg ONCE ONE Administration Protocol Ondansetron HCl 4 mg 12/17/23 19:38 12/17/23 20:18 Ondansetron Hcl 4 Mg/2 Ml Vial IVPUSH 12/17/23 19:39 4 mg ONCE ONE Administration Medical Decision Making Medical Decision Making [facility] Narrative: 23-year-old female presents for evaluation of sudden onset of back pain. There was no significant trauma, the patient was standing changing her child when she felt a sharp pain in her back. She is quite uncomfortable and physical exam is limited by her pain at this time. Will treat her pain and re-evaluate. X-ray w as ordered as well as a urinalysis. She has no warning signs for cauda equina syndrome, no weakness, no numbness, tingling, no difficulty urinating. Differential Diagnosis Differential Diagnoses: The differential diagnosis associated with the presentation includes Acute low back pain Radiculopathy Sciatica Muscle spasm Discharge Plan Discharge Clinical Impression: Lumbar radiculopathy Patient Disposition: Home, Self-Care Instructions: Lumbar Radiculopathy (ED) Additional Instructions: Your x-ray showed no fractures You do have mild curvature of the lower back/lumbar spine which can be followed up with your primary doctor In the meantime, take dexamethasone twice daily for 3 days. Use ibuprofen/Tylenol as needed for pain You may use morphine for severe breakthrough pain. I recommend avoiding breast-feeding while taking the morphine Prescriptions: New morphine 15 mg tablet 15 mg PO Q8H PRN (Reason: severe pain (scale score 7-10)) Qty: 12 0RF Rx Instructions: Partial Fill upon patient request. dexamethasone 4 mg tablet 4 mg PO BID Qty: 6 0RF No Action hydroxyzine HCl 25 mg tablet 25 mg PO Q6-8H PRN (Reason: itching) Qty: 20 0RF cefuroxime axetil 250 mg tablet 250 mg PO BID Qty: 14 0RF ondansetron HCl 4 mg tablet 4 mg PO Q8H PRN (Reason: nausea and vomiting) 4 Days Qty: 14 0RF polyethylene glycol 3350 [Miralax] 17 gram/dose powder 17 g PO DAILY Qty: 510 0RF hydrocortisone acetate [Anusol-HC] 25 mg suppository 25 mg [place] BID Qty: 24 0RF Print Language: Persian
[2023-12-17] MEDS: ondansetron HCL 4 MG/2 ML VIAL IVPUSH (20:18)
[2023-12-17] MEDS: Morphine Sulfate 4 MG/ML CARTRIDGE IVPUSH (20:18)
[2023-12-17] MEDS: methylPREDNISolone Sod Succ 125 MG/2 ML VIAL IVPUSH (20:18)
[2023-12-17 21:01] VITALS: BP 117/77; PULSE 71; RESP 20; TEMP 36.6; O2SAT 98
[2023-12-17 22:31] VITALS: RESP 18
[2023-12-17] MEDS: HYDROmorphone HCl 1 MG/ML SYRINGE IVPUSH (22:31)
[2023-12-17 22:41] VITALS: BP 118/76; PULSE 70; RESP 20; TEMP 36.7; O2SAT 97
[2023-12-17 23:33] VITALS: BP 118/76; PULSE 70; RESP 20; TEMP 36.7; O2SAT 97
== END 2023-12-17 23:34 | disposition home or self-care (01) ==
PROVIDERS: Emergency Provider Emergency Medicine; PCP Family Medicine
DX: M54.16 Radiculopathy, lumbar region (principal); M54.50 Low back pain, unspecified
CPT/HCPCS: 72100; 96374; 96375; 99282; 99284; J1170; J2270; J2405; J2919

== ENCOUNTER 2023-12-26 22:00 | Emergency (ER) | payer MEDICAID, SELFPAY ==
--- NOTE | 2023-12-26 | ECG_ITS ---
Test Reason : CHEST PAIN COVID Blood Pressure : / mmHG Vent. Rate : 096 BPM Atrial Rate : 096 BPM P-R Int : 128 ms QRS Dur : 082 ms QT Int : 330 ms P-R-T Axes : 051 041 022 degrees QTc Int : 416 ms Normal sinus rhythm Normal ECG No previous ECGs available Referred By: Generic ED Physician Electronically Signed By:MALVIN NUNEZ
[2023-12-26 22:23] VITALS: BP 136/73; PULSE 108; RESP 22; TEMP 37.6; O2SAT 97; BMI 31.1
[2023-12-26 23:02] LABS: Alanine Aminotransferase 14 U/L (0-31); Alkaline Phosphatase 108 U/L (39-117); Anion Gap 12 (12-20); Aspartate Amino Transferase 14 U/L (5-31); Bilirubin Total 0.2 mg/dL (0.0-1.0); Blood Urea Nitrogen 10 mg/dL (9-16); Calcium 8.8 mg/dL (8.4-10.2); Carbon Dioxide 21 mmol/L (22-29); Chloride 112 mmol/L (96-108); Creatinine Clr Calc Pharmacy 133.5; Estimated Glomerular Filt Rate > 60; Glucose Random 103 mg/dL (60-115); Potassium 3.7 mmol/L (3.3-5.1); Sodium 141 mmol/L (135-145); Total Protein 7.2 g/dL (6.5-8.0)
[2023-12-26 23:09] LABS: Troponin-I High Sensitivity < 2.7 ng/L (<3.5-17.0)
[2023-12-26 23:10] LABS: Hematocrit 33.6 % (37.0-47.0); Hemoglobin 10.3 g/dl (12.0-16.0); Mean Corpuscular HGB Conc 30.7 g/dl (31.0-35.0); Mean Corpuscular Hemoglobin 22.2 pg (27.0-33.0); Mean Corpuscular Volume 72.4 fL (80.0-98.0); Mean Platelet Volume 9.6 fL (9.4-12.3); Platelet Count 362 X10*3/uL (160-400); Red Blood Count 4.64 X10*6/uL (4.20-5.50); White Blood Count 8.9 X10*3/uL (4.8-10.8)
[2023-12-27 03:22] VITALS: BP 107/59; PULSE 93; RESP 16; TEMP 37; O2SAT 97
--- NOTE | 2023-12-27 03:36 | ED_ITS ---
HPI - Chest Pain General Chief Complaint: Chest Pain Stated Complaint: chest pain Time Seen by Provider: 12/27/23 03:26 Source: patient Limitations: no limitations History of Present Illness ED Provider: erinn SCOTT narrative: Patient with cough upper respiratory symptoms for last 2 days other family member sick checked COVID at home were positive complaining of body aches and cough mostly dry and low-grade fever Related Data Previous Rx's ?Medication ?Instructions ?Recorded hydroxyzine HCl 25 mg tablet 25 mg PO Q6-8H PRN itching #20 tabs 07/23/21 cefuroxime axetil 250 mg tablet 250 mg PO BID #14 tabs 12/19/21 hydrocortisone acetate 25 mg 25 mg IA BID #24 ea 03/26/23 rectal suppository (Anusol-HC) polyethylene glycol 3350 17 17 g PO DAILY #510 grams 03/26/23 gram/dose oral powder (Miralax) ondansetron HCl 4 mg tablet 4 mg PO Q8H PRN nausea and 04/28/23 vomiting 4 days #14 tabs dexamethasone 4 mg tablet 4 mg PO BID #6 tabs 12/17/23 morphine 15 mg immediate release 15 mg PO Q8H PRN severe pain 12/17/23 tablet (scale score 7-10) #12 tabs benzonatate 200 mg capsule 200 mg PO TID PRN cough #30 caps 12/27/23 ibuprofen 600 mg tablet 600 mg PO Q6H PRN fever or pain 12/27/23 #30 tabs Allergies Allergy/AdvReac Type Severity Reaction Status Date / Time No Known Allergies Allergy Verified 12/26/23 22:25 Review of Systems 2 Review of Systems: Yes all other systems are reviewed and are negative [facility] Social History Social History Smoked in Last 30 Days: No Use of substances other than those prescribed or required for medical reasons: No Advance Directives: No Advance Directives Information Provided: No Do you have a plan to hurt others: No Plan Patient : No Physical Exam 2 Vital Signs: Vital Signs: Last Vital Signs Temp 98.6 F 12/27/23 03:57 Pulse 93 12/27/23 03:57 Resp 16 12/27/23 03:57 BP 107/59 L 12/27/23 03:57 Pulse Ox 97 12/27/23 03:57 O2 Del Method Room Air 12/27/23 03:57 BMI result Body Mass Index 31.1 Appearance: Alert. Oriented X3. No acute distress. ENT: Pharynx normal. Oral Mucosa moist Neck: Normal inspection. Neck supple. CVS: Normal heart rate and rhythm. Pulses normal. Respiratory: No respiratory distress. Equal air entry bilateral, no wheezing/rales/rhonchi Skin: Skin warm and dry. Normal skin color. Normal skin turgor. Extremities: No lower extremity edema. Neuro: Oriented X 3. Medications Administered Discontinued Medications Generic Name Dose Route Start Last Admin Trade Name Freq PRN Reason Stop Dose Admin Benzonatate 200 mg 12/27/23 03:26 12/27/23 03:39 Benzonatate 100 Mg Capsule PO 12/27/23 03:27 200 mg ONCE ONE Administration Ibuprofen 600 mg 12/27/23 03:26 12/27/23 03:39 Ibuprofen 600 Mg Tablet PO 12/27/23 03:27 600 mg ONCE ONE Administration Medical Decision Making Medical Decision Making [facility] Narrative: Patient with COVID positive stable labs stable vitals will discharge patient home on Tessalon supportive treatment advised to take ibuprofen for pain drink plenty of fluids Lab Data [facility] Lab Attestation statement: I reviewed the patient's lab results. 12/26/23 22:31 12/26/23 22:31 Labs: Lab Results 12/26/23 Range/Units 22:31 WBC 8.9 (4.8-10.8) X10*3/uL RBC 4.64 (4.20-5.50) X10*6/uL Hgb 10.3 L D (12.0-16.0) g/dl Hct 33.6 L (37.0-47.0) % MCV 72.4 L (80.0-98.0) fL MCH 22.2 L (27.0-33.0) pg MCHC 30.7 L (31.0-35.0) g/dl RDW 18.0 H (11.0-16.0) % Plt Count 362 D (160-400) X10*3/uL MPV 9.6 (9.4-12.3) fL Absolute Nucleated RBC 0.000 (0.0-0.012) X10*3/uL Nucleated RBC % (auto) 0.0 (0.0-0.2) /100WBC Sodium 141 (135-145) mmol/L Potassium 3.7 (3.3-5.1) mmol/L Chloride 112 H (96-108) mmol/L Carbon Dioxide 21 L (22-29) mmol/L Anion Gap 12 (12-20) BUN 10 (9-16) mg/dL Creatinine 0.73 (0.5-1.4) mg/dL Estim Creat Clear Calc 133.5 Estimated GFR > 60 Random Glucose 103 (60-115) mg/dL Calcium 8.8 (8.4-10.2) mg/dL Total Bilirubin 0.2 (0.0-1.0) mg/dL AST 14 (5-31) U/L ALT 14 (0-31) U/L Alkaline Phosphatase 108 (39-117) U/L Troponin I High Sens < 2.7 (<3.5-17.0) ng/L Total Protein 7.2 (6.5-8.0) g/dL Albumin 4.0 (3.5-5.0) g/dL Discharge Plan Discharge Clinical Impression: COVID-19 Patient Disposition: Home, Self-Care Instructions: COVID-19 (Coronavirus Disease 2019) (ED) Additional Instructions: Drink plenty of fluids Cough drops as advised Ibuprofen /Tylenol for pain Prescriptions: New benzonatate 200 mg capsule 200 mg PO TID PRN (Reason: cough) Qty: 30 0RF ibuprofen 600 mg tablet 600 mg PO Q6H PRN (Reason: fever or pain) Qty: 30 0RF No Action hydroxyzine HCl 25 mg tablet 25 mg PO Q6-8H PRN (Reason: itching) Qty: 20 0RF cefuroxime axetil 250 mg tablet 250 mg PO BID Qty: 14 0RF ondansetron HCl 4 mg tablet 4 mg PO Q8H PRN (Reason: nausea and vomiting) 4 Days Qty: 14 0RF morphine 15 mg tablet 15 mg PO Q8H PRN (Reason: severe pain (scale score 7-10)) Qty: 12 0RF Rx Instructions: Partial Fill upon patient request. dexamethasone 4 mg tablet 4 mg PO BID Qty: 6 0RF polyethylene glycol 3350 [Miralax] 17 gram/dose powder 17 g PO DAILY Qty: 510 0RF hydrocortisone acetate [Anusol-HC] 25 mg suppository 25 mg IA BID Qty: 24 0RF Interventions: ED Discharge Assessment Last Done: 12/27/23 03:57 Discharge Date/Time: 12/27/23 03:58 Print Language: Egyptian
[2023-12-27] MEDS: Ibuprofen 600 MG TABLET PO (03:39)
[2023-12-27] MEDS: Benzonatate 100 MG CAPSULE 200 MG PO (03:39)
[2023-12-27 03:57] VITALS: BP 107/59; PULSE 93; RESP 16; TEMP 37; O2SAT 97
== END 2023-12-27 03:58 | disposition home or self-care (01) ==
PROVIDERS: Emergency Provider Internal Medicine; PCP Family Medicine
DX: U07.1 COVID-19 (principal); R05.9 Cough, unspecified
CPT/HCPCS: 36415; 80053; 84484; 85027; 93005; 99283; 99285

== ENCOUNTER 2024-01-27 09:02 | Outpatient (AMB) | payer MEDICAID, SELFPAY ==
--- NOTE | 2024-01-27 09:09 | MHC.OFFVIS ---
Vital Signs 01/27/24 09:12 Height 5 ft 6 in Weight 192 lb BMI 31.0 BP 100/51 L Blood Pressure Location Lt brachial Position Sitting Pulse 75 Intake Visit Reasons: Abdominal pain Intake Note: Patient new consult for abdominal pain. 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 Reports around 3 years ago started noticing some vague epigastric discomfort with heartburn. At that time assoc with . (had 2 pregnancies close together) However now for the past 3 months despite delivering the baby has persistent sx. 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 Yellow/bilious output. Took omeprazole during which helped but has not been on since delivering her baby. Also reports having low back pain and a dental infection recently and was taking ibuprofen 600 frequently. [facility] Social History (Updated 01/27/24 @ 09:11 by Margot Delvalle) Household Members: Spouse and Family Alcohol intake: never Patient Tobacco Use Status: Never used Tobacco Review of Systems Const All systems reviewed & are unremarkable except as noted in HPI and below Physical Exam Vital Signs: Last Vital Signs Pulse 75 01/27/24 09:12 BP 100/51 L 01/27/24 09:12 BMI result Body Mass Index 31.0 No apparent distress Nonicteric Abdomen soft, tenderness in epigastrium, nondistended Alert and oriented x3, normal gait Assessment & Plan Assessment & Plan (1) Abdominal pain: Code(s): R10.9 - Unspecified abdominal pain Category: Medical (2) Nausea & vomiting: Code(s): R11.2 - Nausea with vomiting, unspecified Category: Medical Plan DDx include GERD, esophagitis, gastritis, PUD, celiac, symptomatic gallstones. Plan: - Labs as below - Barium swallow - US Abd - Omeprazole 20 mg once daily in the AM 30-40 mins before breakfast FOllow up 2 months Orders: Orders Hepatitis B Core Antibody Today R10.9 - Unspecified abdominal pain Hepatitis B Surface Antigen Today R10.9 - Unspecified abdominal pain Immunoglobulin A Today R10.9 - Unspecified abdominal pain HIV Ab/Ag Today R10.9 - Unspecified abdominal pain TSH reflex Free T4 Today R10.9 - Unspecified abdominal pain US abdomen complete Today R10.13 - Epigastric pain FL barium swallow Today R11.2 - Nausea with vomiting, unspecified Hemoglobin A1c Today R10.9 - Unspecified abdominal pain Hepatitis A IgG Today R10.9 - Unspecified abdominal pain Hepatitis B Surface Antibody Today R10.9 - Unspecified abdominal pain Hepatitis C Antibody Today R10.9 - Unspecified abdominal pain Transglutaminase IgA Today R10.9 - Unspecified abdominal pain Medications: New omeprazole 20 mg PO DAILY 90 days 90 caps 1RF Coding Level of Care Code New Pt Level 4 (24703) Diagnoses Abdominal pain R10.9 Nausea & vomiting R11.2
[2024-01-27 09:12] VITALS: BP 100/51; PULSE 75; BMI 31.0
== END 2024-01-27 12:42 | disposition home or self-care (01) ==
PROVIDERS: PCP Family Medicine; Visit Provider Internal Medicine
DX: R10.9 Unspecified abdominal pain (principal); R11.2 Nausea with vomiting, unspecified
CPT/HCPCS: 99204

== ENCOUNTER 2024-01-27 09:02 | Outpatient (REF) | payer MEDICAID, SELFPAY ==
[2024-01-27 10:57] LABS: Estimated Average Glucose 108 mg/dL; Hemoglobin A1c % 5.4 % (<6.0)
[2024-01-27 11:42] LABS: TSH reflex Free T4 1.27 uIU/mL (0.32-4.0)
[2024-01-27 11:43] LABS: Hepatitis A Antibody IgG REACTIVE (Nonreactive); ~Hepatitis A Antibody IgG 12.69 S/CO (0.00-0.99)
[2024-01-27 11:44] LABS: HBS Num1 7.84 mIU/mL (0-7.99); HBsAGNum1 0.28 S/CO (0.00-0.99); HIV AB/AG Nonreactive (Nonreactive); HIV Num 1 0.05 S/CO (0.00-0.99); Hepatitis B Core Antibody Nonreactive (Nonreactive); Hepatitis B Surface Antigen Negative (Negative); ~HepC Num1 0.21 S/CO (0.00-0.79); ~Hepatitis B Surface Antibody NONREACTIVE (Nonreactive); ~Hepatitis C Antibody Nonreactive (Nonreactive)
[2024-01-28 13:53] LABS: Immunoglobulin A 159 mg/dL (47-310)
[2024-01-28 20:38] LABS: Transglutaminase IgA <1.0 U/mL
== END 2024-01-27 09:03 | disposition home or self-care (01) ==
LOC: HO.LAB 09:02
PROVIDERS: PCP Family Medicine; Visit Provider Internal Medicine
DX: R10.9 Unspecified abdominal pain (principal); R11.2 Nausea with vomiting, unspecified
CPT/HCPCS: 36415; 82784; 83036; 84443; 86364; 86704; 86706; 86708; 86803; 87340; 87389; 99202

== ENCOUNTER 2024-02-10 10:14 | Outpatient (REF) | payer MEDICAID, SELFPAY ==
[2024-02-10 14:12] LABS: MANUAL DIFF FLAG NO
[2024-02-10 14:18] LABS: Basophils Absolute Auto 0.1 X10*3/uL (0.0-0.2); Basophils Percent Auto 1.2 % (0-2); Eosinophils Absolute Auto 0.2 X10*3/uL (0.0-0.4); Eosinophils Percent Auto 3.3 % (0-4); Hematocrit 35.1 % (37.0-47.0); Hemoglobin 10.5 g/dl (12.0-16.0); Imm Gran Abs Auto 0.01 X10*3/uL (0.00-0.03); Imm Gran Pct Auto 0.2 % (0.0-0.4); Lymphocytes Absolute Auto 2.1 X10*3/uL (1.2-4.9); Lymphocytes Percent Auto 43.6 % (20-40); Mean Corpuscular HGB Conc 29.9 g/dl (31.0-35.0); Mean Corpuscular Hemoglobin 21.8 pg (27.0-33.0); Mean Platelet Volume 9.7 fL (9.4-12.3); Monocytes Absolute Auto 0.4 X10*3/uL (0.1-1.2); Monocytes Percent Auto 8.1 % (2-11); Neutrophils Absolute Auto 2.1 x10*3/uL (2.0-8.3); Neutrophils Percent Auto 43.6 % (45-73); Platelet Count 355 X10*3/uL (160-400); Red Blood Count 4.81 X10*6/uL (4.20-5.50); Red Cell Distribution Width 18.4 % (11.0-16.0); White Blood Count 4.8 X10*3/uL (4.8-10.8)
[2024-02-10 14:33] LABS: Iron 27 mcg/dL (30-160); Percent Iron Saturation 9 % (15-50); Total Iron Binding Capacity 288 mcg/dL (228-428); Unsaturated Iron Binding 261 ug/dL
[2024-02-10 14:47] LABS: Ferritin 6 ng/mL (10-122); Vitamin D 25-OH Total 43.1 ng/mL (>30)
== END 2024-02-10 10:15 | disposition home or self-care (01) ==
LOC: HO.CHCLDS 10:14
PROVIDERS: Visit Provider Family Medicine
DX: D50.9 Iron deficiency anemia, unspecified (principal); E55.9 Vitamin D deficiency, unspecified
CPT/HCPCS: 36415; 82306; 82728; 83540; 85025

== ENCOUNTER 2024-02-18 09:00 | Outpatient (RCR) | payer MEDICAID, SELFPAY | END 2024-03-18 14:52 | disposition home or self-care (01) | LOC: HO.PTCHIC 09:00 | PROVIDERS: PCP Family Medicine; Visit Provider Family Medicine | DX: M54.16 Radiculopathy, lumbar region (principal) | CPT/HCPCS: 97110; 97162 ==

== ENCOUNTER 2024-03-06 08:57 | Outpatient (REF) | payer MEDICAID, SELFPAY | END 2024-03-06 08:58 | disposition home or self-care (01) | LOC: HO.US 08:57 | PROVIDERS: PCP Family Medicine; Visit Provider Internal Medicine | DX: R10.13 Epigastric pain (principal) | CPT/HCPCS: 76700 ==

== ENCOUNTER → 2024-03-06 08:59 | Outpatient (BNV) | payer MEDICAID, SELFPAY | PROVIDERS: PCP Family Medicine; Visit Provider Radiology Diagnostic Radiology | DX: R10.13 Epigastric pain (principal) | CPT/HCPCS: 76700 ==

== ENCOUNTER 2024-03-24 10:27 | Outpatient (REF) | payer MEDICAID, SELFPAY ==
--- NOTE | ~2024-03-24 | XR_ITS ---
EXAMINATION: XR CHEST 2 VIEW CLINICAL INFORMATION: Pleuritic left chest pain COMPARISON: 02/04/2023 TECHNIQUE: PA and lateral views of the chest obtained. FINDINGS: The lungs are clear. There are no pleural effusions. The cardiomediastinal silhouette is normal. XR/XR chest 2V IMPRESSION: No acute cardiopulmonary disease. Electronically signed by: Oli Moscoso MD 03/24/2024 11:25 AM [facility]
== END 2024-03-24 10:28 | disposition home or self-care (01) ==
LOC: HO.HHCX 10:27
PROVIDERS: Visit Provider Internal Medicine
DX: R07.81 Pleurodynia (principal)
CPT/HCPCS: 71046

== ENCOUNTER 2024-04-14 09:03 | Outpatient (REF) | payer MEDICAID, SELFPAY ==
--- NOTE | ~2024-04-14 | FL_ITS ---
EXAMINATION: XR FLUOROSCOPY UPPER GI WITH AIR CLINICAL INFORMATION: Nausea. Epigastric pain. COMPARISON: None TECHNIQUE: Fluoroscopic air contrast upper GI examination was performed utilizing standard techniques with thin and thick barium and effervescent granules. Numerous spot images were obtained. FINDINGS: Dual and single contrast images of the esophagus demonstrate normal caliber, contour, and mucosal pattern. No evidence of stricture, mass, or ulcerations identified. Esophageal peristalsis was normal. No evidence of hiatus hernia identified. No significant gastroesophageal reflux was seen during the course of the examination and on reflux views. Dual contrast and single contrast images of the stomach demonstrated a normal contour. The gastric rugal folds have a mildly thickened appearance, suggestive of gastritis. No masses or ulcerations are seen. Contrast freely passed into the gastric antrum and duodenal bulb without delay. Single and air-contrast images of the duodenal bulb demonstrate no abnormality. The duodenal sweep has a normal appearance, course, and mucosal fold appearance. The imaged proximal jejunum has a normal fold pattern and caliber. FLUOROSCOPY TIME: 3 minutes 12 seconds Number of Spot Images: 7 Number of Cine: 12 DOSE AREA PRODUCT: 2181 uGy-m2 (microgray-meter squared) FL/FL barium swallow with air IMPRESSION: 1. Mildly thickened appearance of the gastric rugal folds, suggestive of gastritis, otherwise unremarkable upper GI series. This procedure was performed by Jeramie Lepe PA-C, and supervised by Dr. Ramos Electronically signed by: Naun Ramos MD 04/15/2024 05:43 PM [facility]
== END 2024-04-14 09:04 | disposition home or self-care (01) ==
LOC: HO.XRAY 09:03
PROVIDERS: PCP Family Medicine; Visit Provider Internal Medicine
DX: R11.2 Nausea with vomiting, unspecified (principal)
CPT/HCPCS: 74221

== ENCOUNTER → 2024-04-14 09:04 | Outpatient (BNV) | payer MEDICAID, SELFPAY | PROVIDERS: PCP Family Medicine; Visit Provider Physician Assistant Surgical | DX: R10.13 Epigastric pain (principal) | CPT/HCPCS: 74221 ==

== ENCOUNTER 2024-04-20 14:07 | Outpatient (REF) | payer MEDICAID, SELFPAY ==
[2024-04-20 16:00] LABS: Hematocrit 36.4 % (37.0-47.0); Hemoglobin 11.3 g/dl (12.0-16.0); Mean Corpuscular Volume 74.1 fL (80.0-98.0); Mean Platelet Volume 9.9 fL (9.4-12.3); Platelet Count 381 X10*3/uL (160-400); Red Blood Count 4.91 X10*6/uL (4.20-5.50); Red Cell Distribution Width 17.6 % (11.0-16.0); White Blood Count 6.1 X10*3/uL (4.8-10.8)
[2024-04-20 17:25] LABS: Ferritin 12 ng/mL (10-122)
[2024-04-20 17:41] LABS: Folate 10.6 ng/mL (> or = 4.0); Vitamin B12 367 pg/mL (200-900)
== END 2024-04-20 14:08 | disposition home or self-care (01) ==
LOC: HO.LAB 14:07
PROVIDERS: PCP Family Medicine; Visit Provider Internal Medicine
DX: D64.9 Anemia, unspecified (principal); R10.9 Unspecified abdominal pain; R11.2 Nausea with vomiting, unspecified; R10.13 Epigastric pain
CPT/HCPCS: 36415; 82607; 82728; 82746; 85027; 99212

== ENCOUNTER 2024-04-20 14:07 | Outpatient (AMB) | payer MEDICAID, SELFPAY ==
[2024-04-20 14:13] VITALS: BP 124/64; PULSE 72; O2SAT 98; BMI 33.4
--- NOTE | 2024-04-20 14:13 | MHC.OFFVIS ---
Vital Signs 04/20/24 14:13 Height 5 ft 6 in Weight 207 lb 3.752 oz BMI 33.4 BP 124/64 Blood Pressure Location Rt brachial Position Sitting Pulse 72 Pulse Source Pulse Oximeter Pulse Oximetry (%) 98 Oxygen Delivery Method Room Air Intake Visit Reasons: 2 months f/u Abdominal pain r/s from 03/25 Intake Note: ESTABLISHED PATIENT David presents in office today for a scheduled ~ 2-3 mos FUV. Meds and Allergies reviewed? Y No recent or relevant surgeries? None Any significant concerns or new changes? No significant concerns or sx at this time. Pharmacy verified? [facility] [employer] Network Architect Required: No Allergies No Known Allergies Allergy (Verified 04/20/24 14:14) HPI Comments Details: 23 y.o F who is here for abd complaints as below. Reports around 3 years ago started noticing some vague epigastric discomfort with heartburn. At that time assoc with . (had 2 pregnancies close together) However now for the past 3 months despite delivering the baby has persistent sx. 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 Yellow/bilious output. Took omeprazole during which helped but has not been on since delivering her baby. Also reports having low back pain and a dental infection recently and was taking ibuprofen 600 frequently. 04/20/24: Here for follow up. Reports minimal improvement with omeprazole, in fact if anything, sx got worse the past few weeks. US abd pending. Barium swallow reviewed. Pt also with RAPHAEL and on iron supplements through her PCP. [facility] Social History Household Members: Spouse and Family Alcohol intake: never Patient Tobacco Use Status: Never used Tobacco Review of Systems Const All systems reviewed & are unremarkable except as noted in HPI and below Physical Exam Vital Signs: Last Vital Signs Pulse 72 04/20/24 14:13 BP 124/64 04/20/24 14:13 Pulse Ox 98 04/20/24 14:13 Oxygen Delivery Method Room Air 04/20/24 14:13 BMI result Body Mass Index 33.4 No apparent distress Nonicteric Abdomen soft, nondistended Alert and oriented x3, normal gait Results Reviewed Results Reviewed: 04/14/24: 1. Mildly thickened appearance of the gastric rugal folds, suggestive of gastritis, otherwise unremarkable upper GI series. Assessment & Plan Assessment & Plan (1) Abdominal pain: Code(s): R10.9 - Unspecified abdominal pain Category: Medical (2) Nausea & vomiting: Code(s): R11.2 - Nausea with vomiting, unspecified Category: Medical (3) Anemia: Code(s): D64.9 - Anemia, unspecified Category: Medical (4) Epigastric pain: Code(s): R10.13 - Epigastric pain Category: Medical Plan Reviewed with the pt that typically expect gastritis to improve with PPI therapy. Will book for egd to r/o other causes such as PUD, eosinophilic GI disorder, etc. We will also get US ABd read expedited. Plan: - EGD to be booked - US read pending - Omeprazole 20 mg once daily In terms of RAPHAEL 2/2 menstrual losses, will recheck labs and if cont with suboptimal ferritin, can discuss IV iron. Orders: Orders Complete Blood Count no Diff Today D64.9 - Anemia, unspecified Vitamin B12 and Folate Today D64.9 - Anemia, unspecified Ferritin Today D64.9 - Anemia, unspecified Coding Level of Care Code Est Pt Level 4 (09679) Diagnoses Abdominal pain R10.9 Nausea & vomiting R11.2 Anemia D64.9 Epigastric pain R10.13
== END 2024-04-22 09:27 | disposition home or self-care (01) ==
PROVIDERS: PCP Family Medicine; Visit Provider Internal Medicine
DX: R10.9 Unspecified abdominal pain (principal); R11.2 Nausea with vomiting, unspecified; D64.9 Anemia, unspecified; R10.13 Epigastric pain
CPT/HCPCS: 99214

== ENCOUNTER 2024-06-06 19:22 | Emergency (ER) | payer MEDICAID, SELFPAY ==
[2024-06-06 19:25] VITALS: BP 116/70; PULSE 82; RESP 16; TEMP 36.7; O2SAT 98; BMI 33.8
--- NOTE | 2024-06-06 19:26 | ED.ABDPAIN ---
HPI - Abdominal Pain General Chief Complaint: Abdominal Pain Stated Complaint: abd pain , n+v Time Seen by Provider: 06/06/24 21:28 Source: patient, RN notes reviewed and old records reviewed Mode of arrival: ambulatory Limitations: no limitations History of Present Illness ED Provider: Wilda HPI narrative: Patient is a 24-year-old female with history of iron-deficiency anemia, chronic abdominal pain followed by GI presenting to the emergency department with acute exacerbation of epigastric pain as well as nausea, vomiting and diarrhea since yesterday. Reports subjective fevers. States emesis was nonbloody, nonbilious. Denies hematochezia. Is currently on omeprazole but was unable to tolerate any food or fluids by mouth today. MD elicited complaint: abdominal pain Onset (ago): day(s) Location: epigastric Severity: severe Exacerbating factors: eating Associated symptoms: nausea, vomiting, diarrhea and chills Related Data Home Medications ?Medication ?Instructions ?Recorded ?Confirmed cholecalciferol (vitamin D3) 50 50 mcg PO DAILY 04/20/24 mcg (2,000 unit) capsule Previous Rx's ?Medication ?Instructions ?Recorded hydroxyzine HCl 25 mg tablet 25 mg PO Q6-8H PRN itching #20 tabs 07/23/21 hydrocortisone acetate 25 mg 25 mg DE BID #24 ea 03/26/23 rectal suppository (Anusol-HC) polyethylene glycol 3350 17 17 g PO DAILY #510 grams 03/26/23 gram/dose oral powder (Miralax) ondansetron HCl 4 mg tablet 4 mg PO Q8H PRN nausea and 04/28/23 vomiting 4 days #14 tabs dexamethasone 4 mg tablet 4 mg PO BID #6 tabs 12/17/23 benzonatate 200 mg capsule 200 mg PO TID PRN cough #30 caps 12/27/23 ibuprofen 600 mg tablet 600 mg PO Q6H PRN fever or pain 12/27/23 #30 tabs omeprazole 20 mg capsule,delayed 20 mg PO DAILY 90 days #90 caps 01/27/24 release sucralfate 1 gram tablet 1 g PO TID #20 tabs 06/06/24 Allergies Allergy/AdvReac Type Severity Reaction Status Date / Time No Known Allergies Allergy Verified 06/06/24 19:29 Review of Systems Review of Systems As per HPI Yes all other systems are reviewed and are negative Constitutional: Reports as per [facility] Social History Social History Household Members: Spouse and Family Alcohol intake: never Patient Tobacco Use Status: Never used Tobacco Smoked in Last 30 Days: No Use of substances other than those prescribed or required for medical reasons: No Advance Directives: No Advance Directives Information Provided: No Do you have a plan to hurt others: No Plan Patient : No Physical Exam ED Vital Signs: Vital Signs - 24 hr 06/06/24 23:23 06/06/24 23:50 Temperature 98.4 F 98.4 F Pulse Rate 69 69 Respiratory Rate 16 16 Blood Pressure 106/44 L 106/44 L Pulse Oximetry 99 99 Oxygen Delivery Method Room Air Room Air BMI result Body Mass Index 33.8 Vital signs have been reviewed and appear to be correct. Blood pressure normal. Heart rate normal. Respiratory rate normal. Temperature normal. Oxygen saturation normal. Const General: cooperative, healthy appearing and no acute distress Orientation/consciousness: oriented to person, oriented to place, oriented to time and patient oriented x3 Limitations: no limitations [facility] Head: Yes normocephalic and Yes atraumatic Ears: external ears normal General nose exam: Normal external nose present Face and sinus: Yes face symmetric Mouth: oropharynx normal and moist mucous membranes Throat: Yes uvula midline Eyes Pupils: Equal, round and reactive pupils present Neck Neck: Yes normal visual inspection and Yes supple Resp Effort & Inspection: normal respiratory effort and able to speak in complete sentences Auscultation: clear to auscultation bilaterally Cardio Rate: regular rate Rhythm: regular rhythm Heart sounds: S1 normal heart sound present and S2 normal heart sound present GI Inspection: Yes normal to inspection Palpation (GI): Soft to palpation, Tenderness to palpation present (GI) in the epigastrum, no guarding, No hepatosplenomegaly present and No Rebound tenderness present Auscultation: normoactive bowel sounds General: Yes no CVA tenderness Back/Spine/Pelvis Back: no CVA tenderness Skin General skin exam: elasticity normal and turgor normal Neuro General: oriented to person, oriented to place, oriented to time, patient oriented x3, moves all extremities, no focal motor deficits and CN's II-XI intact bilaterally Cranial nerves: Yes Equal, round and reactive pupils present Cognition (Neuro): normal cognition Extrem General: Yes full ROM, Yes no pedal edema and Yes no calf tenderness Psych Mental Status: mental status grossly normal Affect: normal affect Thought process: Normal thought process present Course Course Course Narrative: This is a Rapid Medical Exam performed in triage by Carla Alejandre PA-C. Full HPI, ROS and PE to be performed by primary ED provider. 24yo F w/PMHx chronic abd pain, 6mos post vaginal delivery, follows with GI here presenting to the ED c/o epigastric abdominal pain, nausea, vomiting worsening since yesterday. denies fever, chills. PE: abdomen soft, epigastric/LLQ tenderness. No rebound or guarding Plan: labs, UA Medical Decision Making Medical Decision Making [facility] Narrative: Patient is a 24-year-old female with history of iron-deficiency anemia, chronic abdominal pain followed by GI presenting to the emergency department with acute exacerbation of epigastric pain as well as nausea, vomiting and diarrhea since yesterday. On exam patient is awake, A+Ox3, VS WNL, afebrile, normal neurological exam without focal deficits, physical exam findings as above. Given reported symptoms and physical exam findings, initial differential includes but is not limited to GERD, PUD, gastritis, gastroenteritis. Labs unremarkable. Urinalysis is without evidence of infection. Abdomen soft and nontender on exam, do not feel imaging indicated at this time. Patient reports full resolution of symptoms after medications administered in the ED. Will discharge with prescription for sucralfate. Follow up with GI to schedule EGD. Return precautions discussed. Patient verbalized understanding of and agreement with plan. Differential Diagnosis Differential Diagnoses: The differential diagnosis associated with the presentation includes As per [facility] Admission/Observation Consideration of admission/observation: Escalation of care including admission/observation considered Patient would have been admitted to the hospital had their work up had any findings where hospital admission was appropriate and their clinical presentation warranted hospital admission. Lab Data [facility] Lab Attestation statement: I reviewed the patient's lab results. As per [facility] 06/06/24 19:51 06/06/24 19:51 Labs: Lab Results 06/06/24 06/06/24 Range/Units 19:51 20:38 WBC 4.8 (4.8-10.8) X10*3/uL RBC 5.06 (4.20-5.50) X10*6/uL Hgb 11.9 L (12.0-16.0) g/dl Hct 37.5 (37.0-47.0) % MCV 74.1 L (80.0-98.0) fL MCH 23.5 L (27.0-33.0) pg MCHC 31.7 (31.0-35.0) g/dl RDW 16.8 H (11.0-16.0) % Plt Count 338 (160-400) X10*3/uL MPV 9.2 L (9.4-12.3) fL Immature Gran % (Auto) 0.2 (0.0-0.4) % Neut % (Auto) 50.4 (45-73) % Lymph % (Auto) 36.2 (20-40) % Mckean % (Auto) 11.6 H (2-11) % Eos % (Auto) 1.2 (0-4) % Baso % (Auto) 0.4 (0-2) % Lymph # (Auto) 1.8 (1.2-4.9) X10*3/uL Mckean # (Auto) 0.6 (0.1-1.2) X10*3/uL Eos # (Auto) 0.1 (0.0-0.4) X10*3/uL Baso # (Auto) 0.0 (0.0-0.2) X10*3/uL Abs Immat Gran (auto) 0.01 (0.00-0.03) X10*3/uL Absolute Neuts (auto) 2.4 (2.0-8.3) x10*3/uL Absolute Nucleated RBC 0.000 (0.0-0.012) X10*3/uL Nucleated RBC % (auto) 0.0 (0.0-0.2) /100WBC Sodium 142 (135-145) mmol/L Potassium 3.7 (3.3-5.1) mmol/L Chloride 112 H (96-108) mmol/L Carbon Dioxide 22 (22-29) mmol/L Anion Gap 12 (12-20) BUN 10 (9-16) mg/dL Creatinine 0.69 (0.5-1.4) mg/dL Estim Creat Clear Calc 146.0 Estimated GFR > 60 Random Glucose 98 (60-115) mg/dL Calcium 8.8 (8.4-10.2) mg/dL Magnesium 1.9 (1.6-2.6) mg/dL Total Bilirubin 0.3 (0.0-1.0) mg/dL Direct Bilirubin 0.1 (0.0-0.5) mg/dL AST 20 (5-31) U/L ALT 18 (0-31) U/L Alkaline Phosphatase 100 (39-117) U/L Total Protein 7.8 (6.5-8.0) g/dL Albumin 4.2 (3.5-5.0) g/dL Lipase 37 (8-78) U/L Urine Color Yellow Urine Appearance Clear Urine pH 6.5 (5.0-9.0) Ur Specific [place] 1.025 (1.005-1.025) Urine Protein Negative (Neg-Trace) mg/dL Urine Glucose (UA) Negative (Negative) mg/dL Urine Ketones Trace (Negative) mg/dL Urine Blood Negative (Negative) Urine Nitrite Negative (Negative) Ur Leukocyte Esterase Trace H (Negative) Urine RBC 0-2 (0-2) /HPF Urine WBC 0-5 (0-5) /HPF Ur Squamous Epith Cells 3-5 (0-2) /HPF Urine Bacteria None Seen (None Seen) Hyaline Casts 0-2 (0-2) /LPF Urine Test NEGATIVE (NEGATIVE) External Record Review External record reviewed: Inpatient record, Office record and Outpatient record Prescription Management I considered prescription management with: Other Attestation Attending Attestation: I was personally present and available for consultation in the ED. I have reviewed everything on the chart that is available and agree with the documentation provided by the ANATOLY including discussion about the assessment, treatment plan and discussion. Based on medical record the care appears appropriate. Musa Maciel MD FAEM Emergency Medicine Medications Administered Discontinued Medications Generic Name Dose Route Start Last Admin Trade Name Freq PRN Reason Stop Dose Admin Al Hydroxide/Mg Hydroxide 30 ml 06/06/24 22:09 06/06/24 22:22 Magnesium Hydrox/Alum Hydrox 30 Ml Oral.Susp PO 06/06/24 22:10 30 ml ONCE ONE Administration Dicyclomine HCl 10 mg 06/06/24 22:09 06/06/24 22:22 Dicyclomine Hcl 10 Mg Capsule PO 06/06/24 22:10 10 mg ONCE ONE Administration Lidocaine HCl 15 ml 06/06/24 22:09 06/06/24 22:22 Lidocaine Hcl Viscous 2 % 15 Ml Solution MUCOUS MEM 06/06/24 22:10 15 ml ONCE ONE Administration Ondansetron HCl 4 mg 06/06/24 22:09 06/06/24 22:22 Ondansetron Odt 4 Mg Tab.Dariodis JERALDINGU 06/06/24 22:10 4 mg ONCE ONE Administration Discharge Plan Discharge Clinical Impression: Epigastric pain, Nausea, vomiting, and diarrhea Patient Disposition: Home, Self-Care Instructions: Acute Nausea and Vomiting (ED), Acute Diarrhea (ED), Abdominal Pain (ED), Epigastric Pain (ED), Chronic Abdominal Pain (ED), Upper Endoscopy (DC) Additional Instructions: You have been evaluated in the emergency department today for abdominal pain. Your evaluation did not show evidence of medical conditions requiring emergent intervention at this time. Your symptoms improved in the emergency department with medication. We recommend that you follow-up with your plate gauger to complete the previously scheduled upper endoscopy. You are being prescribed a medication called sucralfate which you can take prior to eating to decrease your pain. Please schedule an appointment with your primary care physician as well. Return to the emergency department if you experience worsening or uncontrolled pain, fevers 100.4? F or greater, recurrent vomiting, inability to tolerate food or fluids by mouth, bloody stools or vomit, black or tarry stools, or any other concerning symptoms. Prescriptions: New sucralfate 1 gram tablet 1 g PO TID Qty: 20 0RF No Action hydroxyzine HCl 25 mg tablet 25 mg PO Q6-8H PRN (Reason: itching) Qty: 20 0RF ondansetron HCl 4 mg tablet 4 mg PO Q8H PRN (Reason: nausea and vomiting) 4 Days Qty: 14 0RF dexamethasone 4 mg tablet 4 mg PO BID Qty: 6 0RF benzonatate 200 mg capsule 200 mg PO TID PRN (Reason: cough) Qty: 30 0RF ibuprofen 600 mg tablet 600 mg PO Q6H PRN (Reason: fever or pain) Qty: 30 0RF polyethylene glycol 3350 [Miralax] 17 gram/dose powder 17 g PO DAILY Qty: 510 0RF hydrocortisone acetate [Anusol-HC] 25 mg suppository 25 mg DE BID Qty: 24 0RF omeprazole 20 mg capsule,delayed release(DR/EC) 20 mg PO DAILY 90 Days Qty: 90 1RF cholecalciferol (vitamin D3) 50 mcg (2,000 unit) capsule 50 mcg PO DAILY Referrals: Gina Nicole MD [Physician] - Interventions: ED Discharge Assessment Last Done: 06/06/24 23:50 Discharge Date/Time: 06/06/24 23:53 Print Language: Bolivian
[2024-06-06 19:56] LABS: Basophils Percent Auto 0.4 % (0-2); Eosinophils Absolute Auto 0.1 X10*3/uL (0.0-0.4); Eosinophils Percent Auto 1.2 % (0-4); Hematocrit 37.5 % (37.0-47.0); Hemoglobin 11.9 g/dl (12.0-16.0); Imm Gran Abs Auto 0.01 X10*3/uL (0.00-0.03); Imm Gran Pct Auto 0.2 % (0.0-0.4); Lymphocytes Absolute Auto 1.8 X10*3/uL (1.2-4.9); Lymphocytes Percent Auto 36.2 % (20-40); MANUAL DIFF FLAG NO; Mean Corpuscular HGB Conc 31.7 g/dl (31.0-35.0); Mean Corpuscular Hemoglobin 23.5 pg (27.0-33.0); Mean Corpuscular Volume 74.1 fL (80.0-98.0); Mean Platelet Volume 9.2 fL (9.4-12.3); Monocytes Absolute Auto 0.6 X10*3/uL (0.1-1.2); Monocytes Percent Auto 11.6 % (2-11); Neutrophils Absolute Auto 2.4 x10*3/uL (2.0-8.3); Neutrophils Percent Auto 50.4 % (45-73); Platelet Count 338 X10*3/uL (160-400); Red Blood Count 5.06 X10*6/uL (4.20-5.50); Red Cell Distribution Width 16.8 % (11.0-16.0); White Blood Count 4.8 X10*3/uL (4.8-10.8)
--- OUTSIDE RECORDS SUMMARY | 2024-06-06 20:03 | XMS_ITS | Encounter Summary ---
Author Organization [employer] Address [address] [place] [address] Care Team Providers Care International Student Advisor Name Role Phone Marielle Hayes MD Primary Care Provider [phone] Reason for Visit * Reason Onset Date Comments ER Follow-up 12/18/2023 Encounter Details Date Type Department Care Team (Late st Contact Info) Description 12/18/2023 Telephone [facility] [address] [place] [address] Marielle Hayes MD [address] [place], [place] [id number] ER Follow-up Social History Tobacco Use Types Packs/Day Years Used Date Smoking Tobacco: Never Passive Smoke Exposure: Never Smokeless Tobacco: Never Housing Stability Answer Date Recorded What is your housing situation today? I have adithya tayla 02/18/[address] you li ve. Do you have problems with any of the following? None of the above 02/18/2023 Food Insecurity Answer Date Recorded Within the past 12 months, y ou worried that your food would run out before you got money to buy more: Never True 02/18/2023 Within the past 12 months,th e food you bought just didn't last and you didn't have enough money to get more: Never True Transportation Answer Date Recorded In the past 12 months, has l ack of transportation kept you from medical appts, meetings, work or from getting things needed for daily living? No 02/18/2023 Utilities Answer Date Recorded In the past 12 months, has t he electric, gas, oil or water [employer] threatened to shut off services in your home? No 02/18/2023 Comments Yes Sex and Gender Information Value Date Recorded Sex Assigned at Female 03/05/2022 10:40 AM EDT Legal Sex Female 10:40 AM EDT Gender Identity Female 03/05/2022 10:40 AM EDT Sexual Orientation Choose not to disclose 2023 10:23 AM EDT documented as of this encounter Miscellaneous Notes * Telephone Encounter - Gretel Vasquez RN - 12/18/2023 2:51 PM EDT Triage call Pt reports had back pain which caused bilateral lower leg weakness and Pt fell down. Ptwent to [facility] via ambulance but, because it was so full Pt then went to [facility] ED 12/17/23 .Pt did have xrays done and was told the pain was due to sciatica and there was a curvature in the spine. [facility] information is not on the chart but, will be requested. Pt reports when discharged Pt was gerardo paulson prescription for MS 15mg and dexamethasone. Pt was supposed to stop breast feeding but, reports no other alternative for feeding baby. Pt requests to see PCP only. ASK apt with Dr. Hayes 330pm 12/30/23. Insurance is verified as active prior to booking. Protocol Used: Back Pain (Adult) Protocol-Based Disposition: See in Office or Video Visit within 3 Days Override (Final) Disposition: See in Office or Video Visit within 2 Weeks Override Reason: Other Override Notes: Pt seen in [facility] Ed Video visit not offered Positive Triage Questions: * Moderate back pain (e.g., interferes with normal activities) and present > 3 days * Pain radiates into the thigh or further down the leg * All higher-acuity triage questions were negative Care Advice Discussed: * Reassurance and Education - Back Pain * Cold or Heat * Sleep * Activity * Pain Medicines * Pain Medicines - Extra Notes and Warnings * Reasons To Call Back - Fever occurs - Numbness or weakness occurs, or bowel/bladder problems - Pain begins to shoot into the leg - Pain persists over 2 weeks - Pain becomes worse - You become worse * Use a Cold Pack for Pain * Use Heat After 48 Hours for Pain * Telephone Encounter - Kiki Thomas - 12/18/2023 1:52 PM EDT Tc from Alondra at [facility] stating pt is still in severe pain and is requesting to speak to a nurse or be seen. Alondra stated pt is unable to take medication prescribed at [facility] due to breast feeding. Advised will forward to triage nurse. Contact pt at [phone] * Telephone Encounter - Nirav Corrales - 12/18/2023 8:31 AM EDT Patient calling to report ED visit on : Date: 12/16 Hospital: [facility] Seen for: Back Pain Patient advised will forward to team nurse for follow up documented in this encounter Plan of Treatment Upcoming Encounters Date Type Department Care Team (Late st Contact Info) Description 08/18/2024 10:00 AM EDT Office Visit [facility] [address] [place] [address] Celso Gil documented as of this encounter Visit Diagnoses Not on filedocumented in this encounter Care Teams International Student Advisor Relationship Specialty Start Date End Date Marielle Hayes MD [address] [place] [id number] PCP - General Family Medicine 01/25/22 marielle Hayes Shield CleanerGate Clerk 07/11/23 Bryan Vyas Shield CleanerGate Clerk 11/05/23 documented as of this encounter
--- OUTSIDE RECORDS SUMMARY | 2024-06-06 20:03 | XMS_ITS | Clinical Summary ---
Author Organization [employer] Address [address] [facility] [address] [place] [address] Care Team Providers Care Phone Triage Specialist Name Role Phone Andrea Hayes MD Primary Care Provider [phone] Allergies No known active allergies Medications simethicone (Mylicon,Gas-X) 180 MG capsule Take 1 capsule by mouth if needed in the morning, at noon, in the evening, and at bedtime. Active polyethylene glycol, PEG, 3350 (Glycolax) 17 GM/SCOOP powder TAKE 17GM BY MOUTH DISSOLVED IN WATER ONCE DAILY 12/21/19 23 Active Aspirin Low Dose 81 MG EC tablet TAKE 2 TABLETS BY MOUTH DAILY AT BEDTIME 08/31/19 23 Active multivitamin () 27-0.8 MG tablet Take 1 tablet by mouth in the morning. 120 tablet 1 03/11/20 23 Active Additional Information Patient not taking.Reported on 02/14/2024 diclofenac (Cataflam) 50 MG tablet Take 1 tablet (50 mg) by mouth 3 times daily. 90 tablet 12/30/19 24 Active Additional Information Patient not taking.Reported on 02/14/2024 cyclobenzaprine (Flexeril) 10 MG tablet Take 1 tablet (10 mg) by mouth 3 times daily for 10 days. 30 tablet 12/30/19 24 Active cholecalciferol (Vitamin D-3) 50 MCG (1999 UT) capsule Take 1 capsule (50 mcg) by mouth Once per day. 120 capsule 3 12/30/19 24 Active acetaminophen (Tylenol) 500 MG tablet Take 1 tablet (500 mg) by mouth every 6 (six) hours if needed for mild pain for up to 20 doses. 20 tablet 01/01/20 24 Active Additional Information Patient not taking.Reported on 02/14/2024 hydrocortisone (Anusol-HC) 2.5 % rectal cream Insert into the rectum 2 times daily. 90 g 1 02/10/20 24 Active Additional Information Patient not taking.Reported on 02/14/2024 hydrocortisone (Anusol-HC) 25 MG suppository Insert 1 suppository (25 mg) into the rectum 2 times daily. 60 suppository 1 02/10/20 24 Active Additional Information Patient not taking.Reported on 02/14/2024 senna-docusate sodium (Senokot-S) 8.6-50 MG tablet Take 1 tablet by mouth Once per day. 30 tablet 11 02/10/20 24 025 Active Additional Information Patient not taking.Reported on 02/14/2024 Etonogestrel (NEXPLANON SC) Inject under the skin. Active ferrous gluconate (Fergon) 324 (38 Fe) MG tablet Take 1 tablet (324 mg) by mouth 2 times daily. 180 tablet 1 02/11/20 24 Active Additional Information Patient not taking.Reported on 02/14/2024 ibuprofen 400 MG tablet Take 1 tablet (400 mg) by mouth every 8 (eight) hours if needed for moderate pain. 60 tablet 03/24/20 24 Active Active Problems Problem Noted Date Diagnosed Date History of gestational diabetes 02/10/2024 Assessment & Plan (02/10/2024 10:11 AM EDT): Continue to follow up with lab work. 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 Referral to PT. Follow up in 6 weeks. Relevant Medication Diclofenac (Cataflam) 50 mg tablet Cyclobenzaprine (Flexeril) 10 mg tablet Encounter for health-related screening Assessment & Plan (03/11/2023 9:33 AM EST): Patient was advised to get Flu shot, however, patient denied. Medication and refill. -Labs: HIV-1/2, Hep.C, Iron deficiency anemia 01/04/2023 Assessment & Plan (12/30/2023 4:04 PM EDT): Hx of anemia, ordering lab work for recheck. Prescribing Fergon. Relevant Medications Ferrous Gluconate (Fergon) 324 (38 Fe) mg tablet Assessment & Plan (03/11/2023 9:33 AM EST): -Labs: CBC, Ferritin, Iron and Iron Binding Capacity. Assessment & Plan (01/04/2023 9:18 AM EDT): Will send labs Vitamin D deficiency 01/04/2023 Assessment & Plan (12/30/2023 4:03 PM EDT): Prescribing Cholecalciferol (Vitamin D-3) 50 MCG (1999 UT) capsule Assessment & Plan (03/11/2023 9:32 AM EST): Cholecalciferol refill. Upper back pain on right side 01/04/2023 Assessment & Plan (01/04/2023 9:17 AM EDT): Patient with complaints of back pain was referred for further evaluation. Resolved Problems Problem Noted Date Diagnosed Date Resolved Date Insulin controlled gestation al diabetes mellitus (GDM) during , antepartum 01/04/2023 02/10/2024 Encounters Date Type Department Care Team Description 06/06/2024 Orders Only GENERIC EXTERNAL DATA DEPARTMENT Provider, Generic External Data 04/22/2024 5:20 PM EST Office Visit [facility] [address] [place] [phone] Shashi Flynn MD Dyspnea, unspecified type (Primary Dx); Dizziness 04/22/2024 Telephone [facility] [address] [place] [address] Shalonda Dent, DWAYNE Nurse Triage 04/20/2024 Orders Only GENERIC EXTERNAL DATA DEPARTMENT Provider, Generic External Data 04/14/2024 Orders Only [facility] External Provider, [facility] 03/24/2024 10:20 AM EST Office Visit [facility] [address] [place] [address] María Lewis MD Pleuritic chest pain (Primary Dx) 03/09/2024 Patient Outreach [facility] [address] [place] [address] Andrea Hayes MD Care Coordination (CH[facility] outreach for SDOH PT-1 and food needs-referral completed /) 03/09/2024 Telephone [facility] [address] [place] [address] Andrea Hayes MD PT-1 from Last 3 Months Immunizations Name Administration Dates Next Due Tdap 10/18/2023,10/26/2022 Social History Tobacco Use Types Packs/Day Years Used Date Smoking Tobacco: Never Passive Smoke Exposure: Never Smokeless Tobacco: Never Tobacco Cessation:Counseling Given: Not Answered Alcohol Use Standard Drinks/Week Comments Defer 0 (1 standard drink = 0.6 oz pur e alcohol) Depression Answer Date Recorded Patient Health Questionnaire-9 Score 0 02/10/2024 Patient Health Questionnaire-9 Score 0 02/10/2024 Last PHQ-9: Questionnaire Data Not on file 1 Housing Stability Answer Date Recorded What is your housing situation today? I have adithya bourne 02/10/[address] you li ve. Do you have problems with any of the following? None of the above 02/10/2024 Food Insecurity Answer Date Recorded Within the past 12 months, y ou worried that your food would run out before you got money to buy more: Never True 02/10/2024 Within the past 12 months,th e food you bought just didn't last and you didn't have enough money to get more: Never True 11/2023 Transportation Answer Date Recorded In the past 12 months, has l ack of transportation kept you from medical appts, meetings, work or from getting things needed for daily living? No 02/10/2024 Utilities Answer Date Recorded In the past 12 months, has t he electric, gas, oil or water company threatened to shut off services in your home? No 02/10/2024 Depression Answer Date Recorded Patient Health Questionnaire-2 Score 0 02/10/2024 Internet Access Answer Date Recorded Internet Access Q1 Yes 02/10/2024 Internet Access Q2 Not on file 02/10/2024 Comments No Sex and Gender Information Value Date Recorded Sex Assigned at Female 03/05/2022 10:40 AM EDT Legal Sex Female 10:40 AM EDT Gender Identity Female 03/05/2022 10:40 AM EDT Sexual Orientation Choose not to disclose 2023 10:23 AM EDT Last Filed Vital Signs Vital Sign Reading Time Taken Comments Blood Pressure 136/88 04/22/2024 4:58 PM EST Pulse 74 04/22/2024 4:58 PM EST Temperature 36.5 ??C (97.7 ??F) 04/22/2024 4:58 PM ES T Respiratory Rate 18 04/22/2024 4:58 PM EST Oxygen Saturation 98% 04/22/2024 4:58 PM EST Inhaled Oxygen Concentration - - Weight 88.5 kg (195 lb) 04/22/2024 4:58 PM EST Height 167.6 cm (5' 6 ) 04/22/2024 4:58 PM EST Body Mass Index 31.47 04/22/2024 4:58 PM EST Plan of Treatment Upcoming Encounters Date Type Department Care Team (Late st Contact Info) Description 08/18/2024 10:00 AM EDT Office Visit [facility] [address] [place] [phone] Celso Gil Health Maintenance Due Date Last Done Comments Alcohol/Substance Use Screening 2012 Family Planning (PISQ) 2015 Dental Oral Exam 07/29/2024 01/29/2024 Dental Prophylaxis 08/15/2024 02/14/2024 Influenza Vaccine (#1) 2024 Postp oned from 01/05/2024 (Patient Refused) Dental X-Ray: Bitewings 01/29/2025 01/29/2024 COVID-19 Vaccine ( - 2023-2 5 season) 2025 Postponed from 01/05/2024 (Patient Refused) Depression Screening 02/09/2025 02/10/2024, 01/04/2023 HPV Vaccines (1 - 3-dose series) 02/09/2025 Postponed from 2015 (Patient Refused) SDOH Screening 02/09/2025 02/10/2024 Tobacco Screening 04/22/2025 04/22/2024 Pap Smear 06/25/2025 06/25/2022 Dental X-Ray: Full Mouth 01/29/2027 024, 11/26/2023 DTaP/Tdap/Td Vaccines (3 - T d or Tdap) 10/17/2033 10/18/2023, 10/26/2022 Zoster Vaccines (1 of 2) 2050 RSV Patients and Patients Aged 60 years or older (1 - 1-dose 75+ series) 2075 HIV Screening Completed 01/27/2024 Hepatitis C Screening Completed 01/27/2024 , 06/25/2022 HIB Vaccines Aged Out No longer eligi ble based on patient's age to complete this topic Hepatitis A Vaccines Aged Out No long er eligible based on patient's age to complete this topic Hepatitis B Vaccines Discontinued IPV Vaccines Aged Out No longer eligi ble based on patient's age to complete this topic Meningococcal Vaccine Aged Out No ai ondina eligible based on patient's age to complete this topic Pneumococcal Vaccine: Pediatrics (0 to 5 Years) and At-Risk Patients (6 to 49) Years) Aged Out No longer eligible b ased on patient's age to complete this topic RSV under 20 months Aged Out No longe r eligible based on patient's age to complete this topic Rotavirus Vaccines Aged Out No longer eligible based on patient's age to complete this topic Procedures Procedure Name Priority Date/Time Associated Diagnosis Comments CBC WITH AUTO DIFFERENTIAL Routine 06/06/2024 7:51 PM EST ECG 12-LEAD Routine 04/22/2024 8:35 PM EST Dyspnea, unspecified type VITAMIN B12/FOLATE, SERUM PANEL Routine 04/20/2024 3:20 PM EST FERRITIN Routine 04/20/2024 3:20 PM EST CBC Routine 04/20/2024 3:20 PM EST FL ESOPHAGUS BARIUM SWALLOW WITH AIR Routine 04/14/2024 9:30 AM EST XR CHEST 2 VIEWS STAT 03/24/2024 10:2 7 AM EST Pleuritic chest pain US ABDOMEN COMPLETE Routine 03/06/2024 9 :12 AM EDT PROPHYLAXIS - ADULT Routine 02/14/2024 9 :00 AM EDT DIAGNOSTIC - DIAGNOSTIC IMAGING - INTRAORAL - COMPREHENSIVE SERIES OF RADIOGRAPHIC IMAGES Routine 01/29/2024 9:30 AM EDT COMPREHENSIVE ORAL EVALUATION - NEW OR ESTABLISHED PATIENT Routine 01/29/2024 9:30 AM EDT HEPATITIS C ANTIBODY Routine 01/27/2024 10:13 AM EDT HIV 1/2 ANTIGEN/ANTIBODY, FOURTH GENERATION W/RFL Routine 01/27/2024 10:13 AM EDT HM PAP/HPV Routine 06/25/2022 from Last 3 Months or Most Recently Relevant to Health Maintenance Results * (ABNORMAL) CBC auto differential (06/06/2024 7:51 PM EST) White Blood Count 4.8 4.8 - 10.8 X10*3/uL [facility] Red Blood Count 5.06 4.20 - 5.50 X10*6/uL [facility] Hemoglobin 11.9(L) 12.0 - 16.0 g/dl [facility] Hematocrit 37.5 37.0 - 47.0 % [facility] Mean Corpuscular Volume 74.1(L) 80.0 - 98.0 fL [facility] Mean Corpuscular Hemoglobin 23.5(L) 27.0 - 33.0 pg [facility] Mean Corpuscular HGB Conc 31.7 31.0 - 35.0 g/dl [facility] Red Cell Distribution Width 16.8(H) 11.0 - 16.0 % [facility] Platelet Count 338 160 - 400 X10*3/uL [facility] Mean Platelet Volume 9.2(L) 9.4 - 12.3 fL [facility] Neutrophils Percent Auto 50.4 45 - 73 % [facility] Imm Gran Pct Auto 0.2 0.0 - 0.4 % [facility] Lymphocytes Percent Auto 36.2 20 - 40 % [facility] Monocytes Percent Auto 11.6(H) 2 - 11 % [facility] Eosinophils Percent Auto 1.2 0 - 4 % [facility] Basophils Percent Auto 0.4 0 - 2 % [facility] NRBC Pct Auto 0.0 0.0 - 0.2 /100WBC [facility] Neutrophils Absolute Auto 2.4 2.0 - 8.3 x10*3/uL [facility] Imm Gran Abs Auto 0.01 0.00 - 0.03 X10*3/uL [facility] Lymphocytes Absolute Auto 1.8 1.2 - 4.9 X10*3/uL [facility] Monocytes Absolute Auto 0.6 0.1 - 1.2 X10*3/uL [facility] Eosinophils Absolute Auto 0.1 0.0 - 0.4 X10*3/uL [facility] Basophils Absolute Auto 0.0 0.0 - 0.2 X10*3/uL [facility] NRBC Abs Auto 0.000 0.0 - 0.012 X10*3/uL [facility] 06/06/2024 7:51 PM EST 06/06/2024 7:55 PM EST us Generic External Data Provider LAB BLOOD ORDERAB LES Final Result [facility] [address] [place] [phone] * ECG 12 lead (04/22/2024 8:35 PM EST) Narrative Shashi Flynn MD - 04/22/2024 8:35 PM EST NSR 69, no arrhythmia, normal axis, no ST-T changes, no Q-waves. us Shashi Flynn MD ECG ORDERABLES Final Result * Vitamin B12 (Cobalamin) and Folate Panel, Serum (04/20/2024 3:20 PM EST) Pathologist [facility] Vitamin B12 367 200 - 900 pg/mL [facility] Comment:NORMAL 200-900 PG/ML INDETERMINATE 160-199 PG/ML DEFICIENT < 160 PG/ML Folate 10.6 > or = 4.0 ng/mL [facility] Comment:Reference Values:> o r = 4.0 ng/mL< 4.0 ng/mL suggests folate deficiency Methotrexate, aminopterin and folinic acid(leucovorin) are chemotherapeutic agents whose molecularstructures are similar to folate; therefore, the Architectfolate assay cannot be used for patients using these drugs. 04/20/2024 3:20 PM EST 04/20/2024 3:20 PM EST us Generic External Data Provider LAB BLOOD ORDERAB LES Final Result Performing Organization Address City/State/[facility] Co de Phone Number [facility] [address] [place] [phone] * (ABNORMAL) CBC (04/20/2024 3:20 PM EST) Pathologist [facility] White Blood Count 6.1 4.8 - 10.8 X10*3/uL [facility] Red Blood Count 4.91 4.20 - 5.50 X10*6/uL [facility] Hemoglobin 11.3(L) 12.0 - 16.0 g/dl [facility] Hematocrit 36.4(L) 37.0 - 47.0 % [facility] Mean Corpuscular Volume 74.1(L) 80.0 - 98.0 fL [facility] Mean Corpuscular Hemoglobin 23.0(L) 27.0 - 33.0 pg [facility] Mean Corpuscular HGB Conc 31.0 31.0 - 35.0 g/dl [facility] Red Cell Distribution Width 17.6(H) 11.0 - 16.0 % [facility] Platelet Count 381 160 - 400 X10*3/uL [facility] Mean Platelet Volume 9.9 9.4 - 12.3 fL [facility] NRBC Pct Auto 0.0 0.0 - 0.2 /100WBC [facility] NRBC Abs Auto 0.000 0.0 - 0.012 X10*3/uL [facility] 04/20/2024 3:20 PM EST 04/20/2024 3:20 PM EST us Generic External Data Provider LAB BLOOD ORDERAB LES Final Result Performing Organization Address [facility] de Phone Number [facility] [address] [place] [phone] * Ferritin (04/20/2024 3:20 PM EST) Ferritin 12 10 - 122 ng/mL [facility] 04/20/2024 3:20 PM EST 04/20/2024 3:20 PM EST Generic External Data Provider LAB BLOOD ORDERAB LES Final Result Performing Organization Address [facility] Phone Number [facility] [address] [place] [phone] * FL Esophagus Barium Swallow w/Air (04/14/2024 9:30 AM EST) Anatomical Region Laterality Modality Head, Neck Radiographic Bailee ging 04/14/2024 9:30 AM EST Narrative 04/15/2024 5:45 PM EST ? [facility] ?[address] ?[place] [address] ? Fluoroscopy Report ? Signed ? Patient: Elatifi,Soukaina ?MR#: [id number] ?? [id number] ? : 2000 ?Acct:[id number] ? Age/Sex: 24 / F ?ADM Date: 12/10/24 ? Loc: HO.XRAY ? Attending Dr: Gina Nicole MD ? Ordering Physician: Gina Nicole MD ?? Date of Service: 04/14/24 ?? Procedure(s): FL barium swallow with air ?? Accession Number(s): [id number] ? cc: Andrea Hayes MD; Gina Nicole MD ? EXAMINATION: ?? XR FLUOROSCOPY UPPER GI WITH AIR ? CLINICAL INFORMATION: ?? Nausea. ??Epigastric pain. ? COMPARISON: ?? None ? TECHNIQUE: ?? Fluoroscopic air contrast upper GI examination was performed utilizing ?? standard techniques with thin and thick barium and effervescent ?? granules. Numerous spot images were obtained. ? FINDINGS: ?? Dual and single contrast images of the esophagus demonstrate normal ?? caliber, contour, and mucosal pattern. No evidence of stricture, mass, ?? or ulcerations identified. Esophageal peristalsis was normal. ? No evidence of hiatus hernia identified. No significant ?? gastroesophageal reflux was seen during the course of the examination ?? and on reflux views. ? Dual contrast and single contrast images of the stomach demonstrated a ?? normal contour. The gastric rugal folds have a mildly thickened ?? appearance, suggestive of gastritis. No masses or ulcerations are seen. ?? Contrast freely passed into the gastric antrum and duodenal bulb ?? without delay. ? Single and air-contrast images of the duodenal bulb demonstrate no ?? abnormality. The duodenal sweep has a normal appearance, course, and ?? mucosal fold appearance. The imaged proximal jejunum has a normal fold ?? pattern and caliber. ? FLUOROSCOPY TIME: ?? 3 minutes 12 seconds ? Number of Spot Images: 7 ?? Number of Cine: 12 ? DOSE AREA PRODUCT: ?? 2181 uGy-m2 (microgray-meter squared) ? FL/FL barium swallow with air ?? IMPRESSION: ?? 1. Mildly thickened appearance of the gastric rugal folds, suggestive ?? of gastritis, otherwise unremarkable upper GI series. ? This procedure was performed by Jeramie Lepe PA-C, and supervised by ?? Dr. Ramos ? Electronically signed by: ??Naun Ramos MD ??04/15/2024 05:43 PM EST RP ? Dictated By: ?Jeramie Lepe ? Signed By: ?<Electronically signed by Jeramie Lepe in OV> ? 04/15/24 1743 ?<Electronically signed by Naun Ramos MD in OV> ? 04/15/24 1745 ? DD/ 0930 ? TD/TT: 04/14/24 0930 ? Remediation Project Engineer: ? Procedure Note Donotuseinterpreter, Image - 04/15/[address] [address] Fluoroscopy Report Signed Patient: David SilvaMR#: [id number] : 2000Acct:[id number] Age/Sex: 24 / FADM Date: 04/14/24 Loc: HO.XRAY Attending Dr: Gina Nicole MD Ordering Physician: Gina Nicole MD Date of Service: 04/14/24 Procedure(s): FL barium swallow with air Accession Number(s): [id number] cc: Andrea Hayes MD; Gina Nicole MD EXAMINATION: XR FLUOROSCOPY UPPER GI WITH AIR CLINICAL INFORMATION: Nausea. Epigastric pain. COMPARISON: None TECHNIQUE: Fluoroscopic air contrast upper GI examination was performed utilizing standard techniques with thin and thick barium and effervescent granules. Numerous spot images were obtained. FINDINGS: Dual and single contrast images of the esophagus demonstrate normal caliber, contour, and mucosal pattern. No evidence of stricture, mass, or ulcerations identified. Esophageal peristalsis was normal. No evidence of hiatus hernia identified. No significant gastroesophageal reflux was seen during the course of the examination and on reflux views. Dual contrast and single contrast images of the stomach demonstrated a normal contour. The gastric rugal folds have a mildly thickened appearance, suggestive of gastritis. No masses or ulcerations are seen. Contrast freely passed into the gastric antrum and duodenal bulb without delay. Single and air-contrast images of the duodenal bulb demonstrate no abnormality. The duodenal sweep has a normal appearance, course, and mucosal fold appearance. The imaged proximal jejunum has a normal fold pattern and caliber. FLUOROSCOPY TIME: 3 minutes 12 seconds Number of Spot Images: 7 Number of Cine: 12 DOSE AREA PRODUCT: 2181 uGy-m2 (microgray-meter squared) FL/FL barium swallow with air IMPRESSION: 1. Mildly thickened appearance of the gastric rugal folds, suggestive of gastritis, otherwise unremarkable upper GI series. This procedure was performed by Jeramie Lepe PA-C, and supervised by Dr. Ramos Electronically signed by: Naun Ramos MD 04/15/2024 05:43 PM EST RP Dictated By: Jeramie Lepe Signed By: <Electronically signed by Jeramie Lepe in OV> 04/15/241742 <Electronically signed by Naun Ramos MD in OV> 04/15/241744 DD/ 9 TD/TT: 04/14/24929 Remediation Project Engineer: [facility] External Provider IMG FLU OROSCOPY PROCEDURES Final Result * XR Chest 2 Views (03/24/2024 10:27 AM EST) Anatomical Region Laterality Modality Chest Radiographic Bailee ging 03/24/2024 10:2 7 AM EST Narrative 03/24/2024 11:28 AM EST ?[facility] ?[address] ?[place] [address] ?XRay Report ? Signed ? Patient: Elatifi,Soukaina ?MR#: [id number] ?? [id number] ? : 2000 ?Acct:[id number] ? Age/Sex: 23 / F ?ADM Date: 03/24/24 ? Loc: HO.HHCX ? Attending Dr: María Lewis MD ? Ordering Physician: María Lewis MD ?? Date of Service: 03/24/24 ?? Procedure(s): XR chest 2V ?? Accession Number(s): [id number] ? cc: María Lewis MD ? EXAMINATION: ?? XR CHEST 2 VIEW ? CLINICAL INFORMATION: ?? Pleuritic left chest pain ? COMPARISON: ?? 02/04/2023 ? TECHNIQUE: ?? PA and lateral views of the chest obtained. ? FINDINGS: ?? The lungs are clear. There are no pleural effusions. The ?? cardiomediastinal silhouette is normal. ? XR/XR chest 2V ?? IMPRESSION: ?? No acute cardiopulmonary disease. ? Electronically signed by: ??Oli Moscoso MD ??03/24/2024 11:25 AM EST RP ? Dictated By: ?Oli Moscoso MD ? Signed By: ?<Electronically signed by Oli Moscoso MD in OV> ?03/24/24 1125 ? DD/ 1027 ? TD/TT: 03/24/24 1040 ? Remediation Project Engineer: ? Procedure Note DonJimmie poole - 03/24/2024 [facility] [address] [place] [address] XRay Report Signed Patient: David SilvaMR#: [id number] : 2000Acct:[id number] Age/Sex: 23 / FADM Date: 03/24/24 Loc: HO.HHCX Attending Dr: María Lewis MD Ordering Physician: María Lewis MD Date of Service: 03/24/24 Procedure(s): XR chest 2V Accession Number(s): [id number] cc: María Lewis MD EXAMINATION: XR CHEST 2 VIEW CLINICAL INFORMATION: Pleuritic left chest pain COMPARISON: 02/04/2023 TECHNIQUE: PA and lateral views of the chest obtained. FINDINGS: The lungs are clear. There are no pleural effusions. The cardiomediastinal silhouette is normal. XR/XR chest 2V IMPRESSION: No acute cardiopulmonary disease. Electronically signed by: Oli Moscoso MD 03/24/2024 11:25 AM EST Dictated By: Oli Moscoso MD Signed By: <Electronically signed by Oli Moscoso MD in OV> 03/24/24 1125 DD/ 1027 TD/TT: 03/24/24 1040 Remediation Project Engineer: us María Lewis MD IMG XR PROCEDURES Final Resul t * US Abdomen Complete (03/06/2024 9:12 AM EDT) Anatomical Region Laterality Modality Abdomen Ultrasound 03/06/2024 9:12 AM EDT Narrative 04/22/2024 2:45 PM EST ? [facility] ?[address] ?[place] [address] ? Ultrasound Report ? Signed ? Patient: Elatifi,Soukaina ?MR#: [id number] ?? [id number] ? : 2000 ?Acct:[id number] ? Age/Sex: 23 / F ?ADM Date: 11/01/24 ? Loc: HO.US ? Attending Dr: Gina Nicole MD ? Ordering Physician: Gina Nicole MD ?? Date of Service: 03/06/24 ?? Procedure(s): US abdomen complete ?? Accession Number(s): [id number] ? cc: Andrea Hayes MD; Gina Nicole MD ? EXAMINATION: ?? US ABDOMEN COMPLETE ? CLINICAL INFORMATION: ?? Epigastric pain. ? COMPARISON: ?? Ultrasound abdomen Limited 12/19/2021. ? TECHNIQUE: ?? Real-time imaging of the abdominal viscera. Technically limited study ?? secondary to bowel gas. ? FINDINGS: ? PANCREAS: Normal. Tail obscured by gas. ? ABDOMINAL AORTA: The proximal, mid, and distal segments are normal in ?? caliber. ? INFERIOR VENA CAVA: Visualized portions are normal. ? LIVER: The liver is normal in size. The liver contour is normal. There ?? is slightly increased hepatic echogenicity. No focal hepatic lesion. ?? There is no intrahepatic biliary duct dilatation seen. ? GALLBLADDER: Normal. The gallbladder is physiologically distended ?? without evidence of stones, sludge, polyps, wall thickening or ?? pericholecystic fluid. ? COMMON BILE DUCT: Normal in caliber measuring 0.3 cm in diameter. ? RIGHT KIDNEY: Normal. No hydronephrosis. No renal calculi or focal ?? parenchymal lesions. The kidney measures 10.7 cm in maximum dimension. ? LEFT KIDNEY: Normal. No hydronephrosis. No renal calculi or focal ?? parenchymal lesions. The kidney measures 11.3 cm in maximum dimension. ? SPLEEN: Normal. The spleen measures 10.1 cm in maximum dimension. ? FREE FLUID: None. ? US/US abdomen complete ?? IMPRESSION: ? 1. Mild fatty infiltration of the liver. Normal hepatic contour. No ?? focal liver lesion. ?? 2. No biliary or gallbladder abnormality. ?? 3. The remainder the exam is normal. ? Electronically signed by: ??Naun Ramos MD ??04/22/2024 02:43 PM EST RP ? Dictated By: ?Naun Ramos MD ? Signed By: ?<Electronically signed by Naun Ramos MD in OV> ?04/22/24 1443 ? DD/ 1 ? TD/TT: 03/06/24 0946 ? Remediation Project Engineer: ? Procedure Note Donotuseinterpreter, Image - 04/22/2024 [place] [address] Ultrasound Report Signed Patient: David SilvaMR#: [id number] : 2000Acct:[id number] Age/Sex: 23 / FADM Date: 03/06/24 Loc: HO.US Attending Dr: Gina Nicole MD Ordering Physician: Gina Nicole MD Date of Service: 03/06/24 Procedure(s): US abdomen complete Accession Number(s): [id number] cc: Andrea Hayes MD; Gina Nicole MD EXAMINATION: US ABDOMEN COMPLETE CLINICAL INFORMATION: Epigastric pain. COMPARISON: Ultrasound abdomen Limited 12/19/2021. TECHNIQUE: Real-time imaging of the abdominal viscera. Technically limited study secondary to bowel gas. FINDINGS: PANCREAS: Normal. Tail obscured by gas. ABDOMINAL AORTA: The proximal, mid, and distal segments are normal in caliber. INFERIOR VENA CAVA: Visualized portions are normal. LIVER: The liver is normal in size. The liver contour is normal. There is slightly increased hepatic echogenicity. No focal hepatic lesion. There is no intrahepatic biliary duct dilatation seen. GALLBLADDER: Normal. The gallbladder is physiologically distended without evidence of stones, sludge, polyps, wall thickening or pericholecystic fluid. COMMON BILE DUCT: Normal in caliber measuring 0.3 cm in diameter. RIGHT KIDNEY: Normal. No hydronephrosis. No renal calculi or focal parenchymal lesions. The kidney measures 10.7 cm in maximum dimension. LEFT KIDNEY: Normal. No hydronephrosis. No renal calculi or focal parenchymal lesions. The kidney measures 11.3 cm in maximum dimension. SPLEEN: Normal. The spleen measures 10.1 cm in maximum dimension. FREE FLUID: None. US/US abdomen complete IMPRESSION: 1. Mild fatty infiltration of the liver. Normal hepatic contour. No focal liver lesion. 2. No biliary or gallbladder abnormality. 3. The remainder the exam is normal. Electronically signed by: Naun Ramos MD 04/22/2024 02:43 PM [facility] Dictated By: Naun Ramos MD Signed By: <Electronically signed by Naun Ramos MD in OV> 04/22/24 1443 DD/ 0912 TD/TT: 03/06/24 0946 Remediation Project Engineer: [facility] External Provider IMG US PROCEDURES Edited Result - Final * Hepatitis C Ab (01/27/2024 10:13 AM EDT) Hepatitis C Antibody Nonreactive Nonreactive [facility] Comment:Antibodies to HCV no t detected; does not exclude early acuteHCV infection. 01/27/2024 10:1 3 AM EDT 01/27/2024 10:13 AM EDT Generic External Data Provider LAB BLOOD ORDERAB LES Final Result [facility] [address] [place] [phone] * HIV-1/2 Antigen and Antibodies, Fourth Generation, with Reflexes (01/27/2024 10:13 AM EDT) HIV AB/AG Nonreactive Nonreactive [facility] Comment:HIV-1 p24 Ag and/or HIV-1/HIV-2 Ab not detected.A test result that is nonreactive does not exclude thepossibility of exposure to or infection with HIV-1 and/orHIV-2. Nonreactive results in this assay for individualswith prior exposure to HIV-1 and/or HIV-2 may be due toantigen and antibody levels that are below the limit ofdetection of this assay.The SeeWhy HIV Ag/Ab Combo assay result andsupplemental assay results should be interpreted inconjunction with the patient's clinical presentation,history and other laboratory results. If the results areinconsistent with clinical evidence, additional testing issuggested to confirm the result. 01/27/2024 10:1 3 AM EDT 01/27/2024 10:13 AM EDT us Generic External Data Provider LAB BLOOD ORDERAB LES Final Result [facility] [address] [place] [address] [phone] * Pap Smear (06/25/2022) Pap Negative for intraephithelial lesion or malignancy Negative for intraephithelial lesion or malignancy, Other Historical Provider HEALTH MAINTENANCE Final Result from Last 3 Months or Most Recently Relevant to Health Maintenance Insurance [facility] C3 DENTAL-[facility] MEDICAID STAND ADULT Care Teams Phone Triage Specialist Relationship Specialty Start Date End Date Andrea Hayes MD [address] [place] [phone] PCP - General Family Medicine 01/25/22 andrea Hayes Savings TellerOccupational Therapist Aide 07/11/23 Bryan Vyas Savings TellerOccupational Therapist Aide 11/05/23
--- OUTSIDE RECORDS SUMMARY | 2024-06-06 20:03 | XMS_ITS | Encounter Summary ---
Author Organization [employer] Address [address] [facility] 7t [place] [address] Care Team Providers Care Manager Publishing Name Role Phone Marielle Hayes MD Primary Care Provider [phone] Encounter Details Date Type Department Care Team ([facility] st Contact Info) Description 02/11/2024 Orders Only [facility] CHC MED & PEDS [address] [place] [address] Marielle Hayes MD [address] [place] [address] Iron deficiency anemia, unspecified iron deficiency anemia type (Primary Dx) Social History Tobacco Use Types Packs/Day Years Used Date Smoking Tobacco: Never Passive Smoke Exposure: Never Smokeless Tobacco: Never Depression Answer Date Recorded Patient Health Questionnaire-9 Score 0 02/10/2024 Patient Health Questionnaire-9 Score 0 02/10/2024 Last PHQ-9: Questionnaire Data Not on file 1 Housing Stability Answer Date Recorded What is your housing situation today? I have adithyabrandie bourne 02/10/[address] you [...] AM EDT documented as of this encounter Plan of Treatment Upcoming Encounters Date Type Department Care Team (Late st Contact Info) Description 08/18/2024 10:00 AM EDT Office Visit [facility] ADULT DENTAL [address] [place] [address] Celso Gil Scheduled Orders Name Type Priority Associated Diagnoses Orde r Schedule CBC auto differential Lab Routine Iron deficiency anemia, unspecified iron deficiency anemia type Expected: 02/11/2024 (Approximate), Expires: 02/10/2025 documented as of this encounter Procedures Procedure Name Priority Date/Time Associated Diagnosis Comments US ABDOMEN COMPLETE Routine 03/06/2024 9 :12 AM EDT documented in this encounter Results * US Abdomen Complete (03/06/2024 9:12 AM EDT) Anatomical Region Laterality Modality Abdomen Ultrasound 03/06/2024 9:12 AM EDT Narrative 04/22/2024 2:45 PM EST ? [facility] ?[address] ?[place] [address] ? Ultrasound Report ? Signed ? Patient: Elatifi,Soukaina ?MR#: [id number] ?? [id number] ? : 2000 ?Acct:[id number] ? Age/Sex: 23 / F ?ADM Date: 11/01/24 ? Loc: HO.US ? Attending Dr: Gina Nicole MD ? Ordering Physician: Gina Nicole MD ?? Date of Service: 03/06/24 ?? Procedure(s): US abdomen complete ?? Accession Number(s): [id number] ? cc: Marielle Hayes MD; Gina Nicole MD ? EXAMINATION: [...] MD in OV> ?04/22/24 1443 ? DD/ ? TD/TT: 03/06/24 0946 ? Hammer Shop Supervisor: ? Procedure Note Donotuseinterpreter, Image - 04/22/[address] [address] Ultrasound Report Signed Patient: David SilvaMR#: [id number] : 2000Acct:[id number] Age/Sex: 23 / FADM Date: 03/06/24 Loc: HO.US Attending Dr: Gina Nicole MD Ordering Physician: Gina Nicole MD Date of Service: 03/06/24 Procedure(s): US abdomen complete Accession Number(s): [id number] cc: Marielle Hayes MD; Gina Nicole MD EXAMINATION: US [...] by: Naun Ramos MD 04/22/2024 02:43 PM EST Dictated By: Naun Ramos MD Signed By: <Electronically signed by Naun Ramos MD in OV> 04/22/24 1443 DD/ 1 TD/TT: 03/06/24945 Hammer Shop Supervisor: [facility] External Provider IMG US PROCEDURES Edited Result - Final documented in this encounter Visit Diagnoses Diagnosis Iron deficiency anemia, unspecified iron deficiency anemia type- Primary documented in this encounter Additional Health Concerns Assessment Noted Time PHQ-9 Depression Total Score: 0 02/10/20 9:50 AM EDT documented as of this encounter Care Teams Manager Publishing Relationship Specialty Start Date End Date Marielle Hayes MD [address] [place] [address] PCP - General Family Medicine 01/25/22 marielle Hayes Hand LaminatorCommercial Artist 07/11/23 Bryan Vyas Hand LaminatorCommercial Artist 11/05/23 documented as of this encounter
--- OUTSIDE RECORDS SUMMARY | 2024-06-06 20:03 | XMS_ITS | Encounter Summary ---
Author Organization [employer] Address [address] [facility] 7t [place] [address] Care Team Providers Care Indexer Name Role Phone Marielle Hayes MD Primary Care Provider [phone] Reason for Visit * Reason Onset Date Comments PT-1 03/09/2024 Encounter Details Date Type Department Care Team (Late st Contact Info) Description 03/09/2024 Telephone [facility] MEDICINE [address] [place] [address] Marielle Hayes MD [address] [place] [address] PT-1 Social History Tobacco Use Types Packs/Day Years Used Date Smoking Tobacco: Never Passive Smoke Exposure: Never Smokeless Tobacco: Never Alcohol Use Standard Drinks/Week Comments Defer 0 [...] encounter Miscellaneous Notes * Telephone Encounter - Dee Ventura - 03/09/2024 9:55 AM EST Tc from [place] animal caretaker supervisor from [facility] calling requesting PT1 Home Address verified: Y/N: Yes Provider name or facility name: [facility] Address: [address] [place] [address] Escort needed: Yes ( companionship three kids ) Do you have a wheelchair: Y/N: No If yes- Manual or electric: No Visits: 8-12 x a month documented in this encounter Plan of Treatment Upcoming Encounters Date Type Department Care Team (Late st Contact Info) Description 08/18/2024 10:00 AM EDT Office Visit [facility] CH[facility] ADULT DENTAL [address] [place] [address] Celso Gil documented as of this encounter Visit Diagnoses Not on filedocumented in this encounter Additional Health Concerns Assessment Noted Time PHQ-9 Depression Total Score: 0 02/10/20 24 9:50 AM EDT documented as of this encounter Care Teams Indexer Relationship Specialty Start Date End Date Marielle Hayes MD [address] [place] [address] PCP - General Family Medicine 01/25/22 marielle Hayes Professor Of GermanHarvest Field Ticketer 07/11/23 Bryan Vyas Professor Of GermanHarvest Field Ticketer 11/05/23 documented as of this encounter
--- OUTSIDE RECORDS SUMMARY | 2024-06-06 20:03 | XMS_ITS | Encounter Summary ---
Author Organization [employer] Address [address] [facility] 7t [place] [address] Care Team Providers Care Canvas Goods Supervisor Name Role Phone Marielle Hayes MD Primary Care Provider [phone] Encounter Details Date Type Department Care Team ([facility] st Contact Info) Description 11/26/2023 Orders Only [facility] CHC MED & PEDS [address] [place] [address] Bora Gil MD [address] [place] [address] Social History Tobacco Use Types Packs/Day Years Used Date Smoking Tobacco: Never Passive Smoke Exposure: Never Smokeless Tobacco: Never Housing Stability Answer Date Recorded What is your housing situation today? I have adithyabrandie bourne 02/18/[address] you li [...] 10:00 AM EDT Office Visit [facility] ADULT DENTAL [address] [place] [address] Celso Gil documented as of this encounter Procedures Procedure Name Priority Date/Time Associated Diagnosis Comments XR LUMBAR SPINE 2-3 VIEWS Routine 12/17/2023 7:05 PM EDT documented in this encounter Results * XR Lumbar Spine 2-3 Views (12/17/2023 7:05 PM EDT) Anatomical Region Laterality Modality Spine, L-spine Radiographic Bailee ging 12/17/2023 7:05 PM EDT Narrative 12/17/2023 8:08 PM EDT ? [facility] ?[address] ?[place] [address] ?XRay Report ? Signed ? Patient: Elatifi,Soukaina ?MR#: [id number] ?? [id number] ? : 2000 ?Acct:[id number] ? Age/Sex: 23 / F ?ADM Date: 12/17/23 ? Loc: HO.ED ? Attending Dr: ? Ordering Physician: Stephanie Hopkins ?? Date of Service: 12/17/23 ?? Procedure(s): XR lumbar spine 2-3V ?? Accession Number(s): [id number] ? cc: Stephanie Hopkins; Marielle Hayes MD ? EXAMINATION: ?? XR LUMBOSACRAL SPINE ? CLINICAL INFORMATION: ?? Low back pain, fall. ? COMPARISON: ?? None available. ? TECHNIQUE: ?? Three views of the lumbosacral spine. ? FINDINGS: ?? Mild right apical curvature of the lumbar spine. No evidence of acute ?? compression deformity or subluxation. Intervertebral disc heights are ?? maintained. Normal appearance of the posterior elements. SI joints are ?? symmetric. No significant paraspinal soft tissue abnormality. ? XR/XR lumbar spine 2-3V ?? IMPRESSION: ?? No significant radiographic abnormality. ? Dictated By: ?Adair,Autumn ? Signed By: ?<Electronically signed by Autumn ??Dager in OV> ? 12/17/23 2005 ? DD/ ? TD/TT: ? Handmade Tile Artist: ? Procedure Note Gem, Image - 12/17/[address] [address] XRay Report Signed Patient: David SilvaMR#: [id number] : 2000Acct:[id number] Age/Sex: 23 / FADM Date: 12/17/23 Loc: HO.ED Attending Dr: Ordering Physician: Stephanie Hopkins Date of Service: 12/17/23 Procedure(s): XR lumbar spine 2-3V Accession Number(s): [id number] cc: Stephanie Hopkins; Marielle Hayes MD EXAMINATION: XR LUMBOSACRAL SPINE CLINICAL INFORMATION: Low back pain, fall. COMPARISON: None available. TECHNIQUE: Three views of the lumbosacral spine. FINDINGS: Mild right apical curvature of the lumbar spine. No evidence of acute compression deformity or subluxation. Intervertebral disc heights are maintained. Normal appearance of the posterior elements. SI joints are symmetric. No significant paraspinal soft tissue abnormality. XR/XR lumbar spine 2-3V IMPRESSION: No significant radiographic abnormality. Dictated By: Autumn Borrero Signed By: <Electronically signed by Autumn Borrero in OV> 12/17/232004 DD/ 04 TD/TT: Handmade Tile Artist: [facility] External Provider IMG XR PROCEDURES Edited Result - Final documented in this encounter Visit Diagnoses Not on filedocumented in this encounter Care Teams Canvas Goods Supervisor Relationship Specialty Start Date End Date Marielle Hayes MD [address] [place] [address] PCP - General Family Medicine 01/25/22 marielle Hayes Revenue AccountantClinique Counter Manager 07/11/23 Bryan Vyas Revenue AccountantClinique Counter Manager 11/05/23 documented as of this encounter
--- OUTSIDE RECORDS SUMMARY | 2024-06-06 20:03 | XMS_ITS | Encounter Summary ---
Author Organization [employer] Address [address] [facility] 7t [place] [address] Care Team Providers Care Call Center Director Name Role Phone Marielle Hayes MD Primary Care Provider [phone] Reason for Visit * Reason Onset Date Comments Nurse Triage 12/13/2023 Encounter Details Date Type Department Care Team (Late st Contact Info) Description 12/13/2023 Telephone [facility] MEDICINE [address] [place] [address] Marielle Hayes MD [address] [place], [place] [phone] Nurse Triage Social History Tobacco Use Types Packs/Day Years [...] encounter Miscellaneous Notes * Telephone Encounter - Ann Aguilar RN - 12/13/2023 11:37 AM EDT called pt to triage, spoke to pt. pt states seen in the clinic on 12/09 and treated for vaginal yeast. pt took the one day oral medication and is taking the vaginal cream for 7 days. pt states itching and burning and was told if no better by the end of the week to call back. no available appt to schedule, and was advised home care: rest, fluids, continue and complete the vaginal cream, and call back Saturday if no improvement. pt understands and agrees with plan. insurance verified. Protocol Used: Vaginal Symptoms (Adult) Protocol-Based Disposition: Home Care Positive Triage Question: * Symptoms of a yeast infection (i.e., itchy, white discharge, not bad smelling) and feels like prior vaginal yeast infections * All higher-acuity triage questions were negative Care Advice Discussed: * Reassurance and Education - Vaginal Yeast Infection * Antifungal Medicine for Yeast Infection * Antifungal Medicine for Yeast Infection - Extra Notes and Warnings * Genital Hygiene * Expected Course * Reasons To Call Back - Vaginal discharge becomes yellow or green - Vaginal discharge becomes foul smelling or itchy - Fever or abdomen pain occur - You become worse * Telephone Encounter - Jose Elias Finch - 12/13/2023 10:12 AM EDT Symptom: Vaginal Symptoms - Not Bleeding Outcome: Schedule an urgent appointment (within 1 hour) or talk to a nurse or provider soon Reason: Any pelvic pain documented in this encounter Plan of Treatment Upcoming Encounters Date Type Department Care Team (Angelo Contact Info) Description 08/18/2024 10:00 AM EDT Office Visit [facility] ADULT D[facility] [address] [place] [address] Celso Gil documented as of this encounter Visit Diagnoses Not on filedocumented in this encounter Care Teams Call Center Director Relationship Specialty Start Date End Date Marielle Hayes MD [address] [place] [address] PCP - General Family Medicine 01/25/22 marielle Hayes Value EngineerNursing Assistants Teacher 07/11/23 Bryan Vyas Value EngineerNursing Assistants Teacher 11/05/23 documented as of this encounter
--- OUTSIDE RECORDS SUMMARY | 2024-06-06 20:03 | XMS_ITS | Encounter Summary ---
Author Organization [employer] Address [address] [facility] 7t [place] [address] Care Team Providers Care Ribbon Blocker Name Role Phone Andrea Hayes MD Primary Care Provider [phone] Encounter Details Date Type Department Care Team (Late st Contact Info) Description 06/06/2024 Orders Only GENERIC EXTERNAL DATA DEPARTMENT Provider, Generic External Data Social History Tobacco Use Types Packs/Day Years [...] Description 08/18/2024 10:00 AM EDT Office Visit [facility] ADULT D[facility] [address] [place] [address] Celso Gil documented as of this encounter Procedures Procedure Name Priority Date/Time Associated Diagnosis Comments CBC WITH AUTO DIFFERENTIAL Routine 06/06/2024 7:51 PM EST documented in this encounter Results * (ABNORMAL) CBC auto differential (06/06/2024 7:51 PM EST) White Blood Count 4.8 4.8 - 10.8 X10*3/uL [facility] Red Blood Count 5.06 4.20 - 5.50 X10*6/uL [facility] Hemoglobin 11.9(L) 12.0 - 16.0 g/dl [facility] Hematocrit 37.5 37.0 - 47.0 % [facility] Mean Corpuscular Volume 74.1(L) 80.0 - 98.0 fL [facility] Mean Corpuscular Hemoglobin 23.5(L) 27.0 - 33.0 pg [facility] Mean Corpuscular HGB Conc 31.7 31.0 - 35.0 g/dl [facility] Red Cell Distribution Width 16.8(H) 11.0 - 16.0 % [facility] Platelet Count 338 160 - 400 X10*3/uL [facility] Mean Platelet Volume 9.2(L) 9.4 - 12.3 fL [facility] Neutrophils Percent Auto 50.4 45 - 73 % [facility] Imm Gran Pct Auto 0.2 0.0 - 0.4 % [facility] Lymphocytes Percent Auto 36.2 20 - 40 % [facility] Monocytes Percent Auto 11.6(H) 2 - 11 % [facility] Eosinophils Percent Auto 1.2 0 - 4 % [facility] Basophils Percent Auto 0.4 0 - 2 % [facility] NRBC Pct Auto 0.0 0.0 - 0.2 /100WBC [facility] Neutrophils Absolute Auto 2.4 2.0 - 8.3 x10*3/uL [facility] Imm Gran Abs Auto 0.01 0.00 - 0.03 X10*3/uL [facility] Lymphocytes Absolute Auto 1.8 1.2 - 4.9 X10*3/uL [facility] Monocytes Absolute Auto 0.6 0.1 - 1.2 X10*3/uL [facility] Eosinophils Absolute Auto 0.1 0.0 - 0.4 X10*3/uL [facility] Basophils Absolute Auto 0.0 0.0 - 0.2 X10*3/uL [facility] NRBC Abs Auto 0.000 0.0 - 0.012 X10*3/uL [facility] 06/06/2024 7:51 PM EST 06/06/2024 7:55 PM EST us Generic External Data Provider LAB BLOOD ORDERAB LES Final Result [facility] [address] [place] [address] [phone] documented in this encounter Visit Diagnoses Not on filedocumented in this encounter Additional Health Concerns Assessment Noted Time PHQ-9 Depression Total Score: 0 02/10/20 24 9:50 AM EDT documented as of this encounter Care Teams Ribbon Blocker Relationship Specialty Start Date End Date Andrea Hayes MD [address] [place] [address] PCP - General Family Medicine 01/25/22 andrea Hayes Outside Sales InspectorHealth Insurance Sales Agent 07/11/23 Bryan Vyas Outside Sales InspectorHealth Insurance Sales Agent 11/05/23 documented as of this encounter
[2024-06-06 20:13] LABS: Alanine Aminotransferase 18 U/L (0-31); Albumin Level 4.2 g/dL (3.5-5.0); Alkaline Phosphatase 100 U/L (39-117); Anion Gap 12 (12-20); Aspartate Amino Transferase 20 U/L (5-31); Bilirubin Direct 0.1 mg/dL (0.0-0.5); Bilirubin Total 0.3 mg/dL (0.0-1.0); Blood Urea Nitrogen 10 mg/dL (9-16); Calcium 8.8 mg/dL (8.4-10.2); Carbon Dioxide 22 mmol/L (22-29); Chloride 112 mmol/L (96-108); Estimated Glomerular Filt Rate > 60; Glucose Random 98 mg/dL (60-115); Lipase 37 U/L (8-78); Magnesium 1.9 mg/dL (1.6-2.6); Potassium 3.7 mmol/L (3.3-5.1); Sodium 142 mmol/L (135-145); Total Protein 7.8 g/dL (6.5-8.0)
[2024-06-06 20:33] VITALS: BP 106/61; PULSE 73; RESP 20; TEMP 36.8; O2SAT 100
[2024-06-06 20:52] LABS: Appearance Urine Clear; Color Urine Yellow; Glucose Urine UA Negative (Negative); Leukocyte Esterase Urine Trace (Negative); Nitrite Urine Negative (Negative); PH 6.5 (5.0-9.0); Specific Gravity - Urine 1.025 (1.005-1.025); UMIC TRIGGER UACC YES; Urine Blood Negative (Negative); Urine Ketones Trace mg/dL (Negative); Urine Protein Negative (Neg-Trace)
[2024-06-06 20:57] LABS: Bacteria Urine None Seen (None Seen); Hyaline Casts Urine 0-2 /LPF (0-2); RBC Urine 0-2 /HPF (0-2); UPreg QC Valid YES; Urine Pregnancy NEGATIVE (NEGATIVE); WBC Urine 0-5 /HPF (0-5)
[2024-06-06] MEDS: Magnesium Hydrox/Alum Hydrox 30 ML ORAL.SUSP PO (22:22)
[2024-06-06] MEDS: Lidocaine HCl Viscous 2 % 15 ML SOLUTION MUCOUS MEM (22:22)
[2024-06-06] MEDS: Ondansetron ODT 4 MG TAB.RAPDIS TRANSLINGU (22:22)
[2024-06-06] MEDS: Dicyclomine HCl 10 MG CAPSULE PO (22:22)
[2024-06-06 23:23] VITALS: BP 106/44; PULSE 69; RESP 16; TEMP 36.9; O2SAT 99
[2024-06-06 23:50] VITALS: BP 106/44; PULSE 69; RESP 16; TEMP 36.9; O2SAT 99
== END 2024-06-06 23:53 | disposition home or self-care (01) ==
PROVIDERS: Physician Assistant; Emergency Provider Emergency Medicine; PCP Family Medicine
DX: R10.13 Epigastric pain (principal); R11.2 Nausea with vomiting, unspecified; R19.7 Diarrhea, unspecified; D50.9 Iron deficiency anemia, unspecified; Z79.899 Other long term (current) drug therapy
CPT/HCPCS: 36415; 80048; 80076; 81001; 81025; 83690; 83735; 85025; 99283; 99284

== ENCOUNTER 2024-07-08 17:28 | Outpatient (REF) | payer MEDICAID, SELFPAY ==
--- OUTSIDE RECORDS SUMMARY | 2024-07-08 19:31 | XMS_ITS | Encounter Summary ---
Author Organization [employer] Address [address] [facility] [address] [place] [address] Care Team Providers Care Marine Insurance Claim Examiner Name Role Phone Marielle aHyes MD Primary Care Provider [phone] Encounter Details Date Type Department Care Team ([facility] st Contact Info) Description 07/08/2024 9:40 AM EST Office Visit [facility] [address] [place] [id number] Margot Alexandra MD [address] [place] [address] Dizziness; UTI symptoms Social History Tobacco Use Types Packs/Day Years [...] AM EDT documented as of this encounter Last Filed Vital Signs Vital Sign Reading Time Taken Comments Blood Pressure 116/70 07/08/2024 10:02 AM EST Pulse 70 07/08/2024 10:02 AM EST Temperature 36.9 ??C (98.5 ??F) 07/08/2024 10:[address] Respiratory Rate 20 07/08/2024 10:02 AM EST Oxygen Saturation 98% 07/08/2024 10:02 AM EST Inhaled Oxygen Concentration - - Weight 94.3 kg (208 lb) 07/08/2024 10:02 AM EST Height 167.6 cm (5' 6 ) 07/08/2024 10:02 AM EST Body Mass Index 33.57 07/08/2024 10:02 AM EST documented in this encounter Progress Notes * Margot Marquez MD - 07/08/2024 9:40 AM EST SUBJECTIVE: David Lopez is a 24 y.o. year old female who presents for sick appointment . Acute Concerns: Patient reports for the past few days she has being having nausea, dizziness, body ache, malaise, she also reports urinary frequency, bilateral flank pain, change in color of urine and strong odor. Patient is concerned because she has history of gestational diabetes and a strong family history of diabetes she would like to know how long her sugars and her A1c. Social History Social History Narrative Not on file Patient Active Problem List Diagnosis Iron deficiency anemia Vitamin D deficiency Upper back pain on right side Encounter for health-related screening Lumbar back pain with radiculopathy affecting lower extremity History of gestational diabetes Pelvic somatic dysfunction UTI symptoms Dizziness No family history on file. Review of Systems Constitutional: Negative. HENT: Negative. Respiratory: Negative. Cardiovascular: Negative. Genitourinary: Positive for flank pain, frequency and urgency. Negative for decreased urine volume,difficulty urinating, dyspareunia, dysuria, enuresis, genital sores, hematuria, menstrual problem, pelvic pain, vaginal bleeding, vaginal discharge and vaginal pain. OBJECTIVE: Vitals: 07/08/24 1002 BP: 116/70 BP Location: Right arm Patient Position: Sitting BP Cuff Size: Adult Pulse: 70 Resp: 20 Temp: 98.5 ??F (36.9 ??C) TempSrc: Temporal SpO2: 98% Weight: 208 lb (94.3 kg) Height: 5' 6 (1.676 m) Physical Exam Constitutional: Appearance: Normal appearance. Cardiovascular: Rate and Rhythm: Normal rate and regular rhythm. Pulmonary: Effort: Pulmonary effort is normal. Breath sounds: Normal breath sounds. Abdominal: General: Abdomen is flat. Palpations: Abdomen is soft. Tenderness: There is no abdominal tenderness. There is right CVA tenderness and left CVA tenderness. Musculoskeletal: Right lower leg: No edema. Left lower leg: No edema. Neurological: Mental Status: She is alert. Follow Up: No follow-ups on file. Current Outpatient Medications on File Prior to Visit Medication Sig Dispense Refill acetaminophen (Tylenol) 500 MG tablet Take 1 tablet (500 mg) by mouth every 6 (six) hours if neededfor mild pain for up to 20 doses. (Patient not taking: Reported on 02/14/2024) 20 tablet 0 Aspirin Low Dose 81 MG EC tablet TAKE 2 TABLETS BY MOUTH DAILY AT BEDTIME cholecalciferol (Vitamin D-3) 50 MCG (2000 UT) capsule Take 1 capsule (50 mcg) by mouth Once per day. 120 capsule 3 cyclobenzaprine (Flexeril) 10 MG tablet Take 1 tablet (10 mg) by mouth 3 times daily for 10 days. 30 tablet 0 diclofenac (Cataflam) 50 MG tablet Take 1 tablet (50 mg) by mouth 3 times daily. (Patient not taking: Reported on 02/14/2024) 90 tablet 0 Etonogestrel (NEXPLANON SC) Inject under the skin. ferrous gluconate (Fergon) 324 (38 Fe) MG tablet Take 1 tablet (324 mg) by mouth 2 times daily. (Patient not taking: Reported on 02/14/2024) 180 tablet 1 hydrocortisone (Anusol-HC) 2.5 % rectal cream Insert into the rectum 2 times daily. (Patient not taking: Reported on 02/14/2024) 90 g 1 hydrocortisone (Anusol-HC) 25 MG suppository Insert 1 suppository (25 mg) into the rectum 2 times daily. (Patient not taking: Reported on 02/14/2024) 60 suppository 1 ibuprofen 400 MG tablet Take 1 tablet (400 mg) by mouth every 8 (eight) hours if needed for moderate pain. 60 tablet 0 multivitamin () 27-0.8 MG tablet Take 1 tablet by mouth in the morning. (Patient not taking: Reported on 02/14/2024) 120 tablet 1 polyethylene glycol, PEG, 3350 (Glycolax) 17 GM/SCOOP powder TAKE 17GM BY MOUTH DISSOLVED IN WATER ONCE DAILY senna-docusate sodium (Senokot-S) 8.6-50 MG tablet Take 1 tablet by mouth Once per day. (Patient not taking: Reported on 02/14/2024) 30 tablet 11 simethicone (Mylicon,Gas-X) 180 MG capsule Take 1 capsule by mouth if needed in the morning, at noon, in the evening, and at bedtime. No current facility-administered medications on file prior to visit. Problem List Items Addressed This Visit Dizziness I reviewed with patient her glucose and A1c results, I let her know glucose is 119 and A1c is 5.7 this means that she does not has diabetes at this time but she may be at risk, counseling done about healthy diet and weight reduction. I advised to drink plenty of water and change positions slowly Relevant Orders POCT Glucose (Completed) POCT HGB A1C (Completed) UTI symptoms Drink plenty of fluids do not hold the urine I will prescribe Macrobid 100 mg twice a day for 1 week in light of clinical symptoms Acetaminophen as needed x-ray results: UA and culture done patient will be contacted with culture results Relevant Medications nitrofurantoin, macrocrystal-monohydrate, (Macrobid) 100 MG capsule acetaminophen (Tylenol Extra Strength) 500 MG tablet Other Relevant Orders POCT urinalysis dipstick manually resulted (Completed) Culture, Urine, Routine documented in this encounter Miscellaneous Notes * Assessment & Plan Note - Margot Marquez MD - 07/08/2024 10:37 AM EST Associated Problem(s): Dizziness I reviewed with patient her glucose and A1c results, I let her know glucose is 119 and A1c is 5.7 this means that she does not has diabetes at this time but she may be at risk, counseling done about healthy diet and weight reduction. I advised to drink plenty of water and change positions slowly * Assessment & Plan Note - Margot Marquez MD - 07/08/2024 10:35 AM EST Associated Problem(s): UTI symptoms Drink plenty of fluids do not hold the urine I will prescribe Macrobid 100 mg twice a day for 1 week in light of clinical symptoms Acetaminophen as needed x-ray results: UA and culture done patient will be contacted with culture results documented in this encounter Plan of Treatment Upcoming Encounters Date Type Department Care Team (Late st Contact Info) Description 08/18/2024 10:00 AM EDT Office Visit [facility]ULT [facility] [address] [place] [address] Celso Gil Scheduled Orders Name Type Priority Associated Diagnoses Orde r Schedule Culture, Urine, Routine Microbiology Routine UTI symptoms Ordered: 07/08/2024 documented as of this encounter Procedures Procedure Name Priority Date/Time Associated Diagnosis Comments POCT URINALYSIS DIPSTICK Routine 07/08/2024 10:34 AM EST UTI symptoms POCT GLYCATED HEMOGLOBIN, TOTAL Routine 07/08/2024 10:06 AM EST Dizziness POCT GLUCOSE Routine 07/08/2024 10:04 AM EST Dizziness documented in this encounter Results * (ABNORMAL) POCT urinalysis dipstick manually resulted (07/08/2024 10:34 AM EST) Color, UA Yellow Clarity, UA Clear Glucose, UA Negative Bilirubin, UA Negative Ketones, UA Negative Spec Grav, UA 1.030 Blood, UA Positive(A) Negative, None Detected Comment:Trace pH, UA 5.5 Protein, UA Negative Urobilinogen, UA 0.2 Leukocytes, UA Negative Negative, Rare, Trace Nitrite, UA Negative Negative, None Detected Appearance, UA OK Urine 07/08/2024 10:3 4 AM EST Margot Marquez MD POINT OF CARE TEST EN TER/EDIT ORDERABLES Final Result * POCT HGB A1C (07/08/2024 10:06 AM EST) Hemoglobin A1C 5.7 4.0 - 6.0 % QC Media Lot # [id number] Lot# Expiration Date Blood 07/08/2024 10:0 6 AM EST Margot Marquez MD POINT OF CARE TEST EN TER/EDIT ORDERABLES Final Result * POCT Glucose (07/08/2024 10:04 AM EST) Glucose Blood, POC 118 60 - 200 mg/dL Comment:Fasting QC Media Lot # [id number] Lot# Expiration Date Blood Capillary blood specimen / Unknown 07/08/2024 10:04 AM EST us Margot Marquez MD POINT OF CARE TEST EN TER/EDIT ORDERABLES Final Result documented in this encounter Visit Diagnoses Diagnosis Dizziness Dizziness and giddiness UTI symptoms documented in this encounter Additional Health Concerns Assessment Noted Time PHQ-9 Depression Total Score: 0 02/10/20 9:50 AM EDT documented as of this encounter Care Teams Marine Insurance Claim Examiner Relationship Specialty Start Date End Date Marielle Hayes MD [address] [place] [id number] PCP - General Family Medicine 01/25/22 marielle Hayes Milk Bottling Machine OperatorStenciling Machine Tender 07/11/23 Bryan Vyas Milk Bottling Machine OperatorStenciling Machine Tender 11/05/23 documented as of this encounter
--- OUTSIDE RECORDS SUMMARY | 2024-07-08 19:31 | XMS_ITS | Encounter Summary ---
Author Organization [employer] Address [address] [facility] 7t [place] [address] Care Team Providers Care Failure Analysis Engineer Name Role Phone Marielle Hayes MD Primary Care Provider [phone] Encounter Details Date Type Department Care Team ([facility] st Contact Info) Description 02/11/2024 Orders Only [facility] [address] [place] [address] Marielle Hayes MD [address] [place] [address] Iron deficiency anemia, unspecified iron deficiency anemia [...] 08/18/2024 10:00 AM EDT Office Visit [facility] [address] [place] [address] Celso Gil Scheduled Orders Name Type Priority [...] EDT Narrative 04/22/2024 2:45 PM EST ? [facility] ?[address] ?[place] [address] ? Ultrasound Report ? Signed ? Patient: Elatifi,Soukaina ?MR#: [id number] ?? [id number] ? : 2000 ?Acct:[id number] ? Age/Sex: 23 / F ?ADM Date: 11/01/24 ? Loc: HO.US ? Attending Dr: Gina Nicole MD ? Ordering Physician: Gina Nicole MD ?? Date of Service: 03/06/24 ?? Procedure(s): US abdomen complete ?? Accession Number(s): [id number] ? cc: Marielle Hayes MD; Gina Nicole [...] ? DD/ ? TD/TT: 03/06/24 0946 ? Teller Supervisor: ? Procedure Note Donotuseinterpreter, Image - 04/22/[address] [address] Ultrasound Report Signed Patient: David SilvaMR#: [id number] : 2000Acct:[id number] Age/Sex: 23 / FADM Date: 03/06/24 Loc: HO.US Attending Dr: Gina Nicole MD Ordering Physician: Gina Nicole MD Date of Service: 03/06/24 Procedure(s): US abdomen complete Accession Number(s): [id number] cc: Marielle Hayes MD; Gina Nicole MD [...] OV> 04/22/24 1443 DD/ 1 TD/TT: 03/06/249[address] Teller Supervisor: [facility] External Provider IMG US PROCEDURES Edited Result - Final documented in this encounter Visit Diagnoses Diagnosis Iron deficiency anemia, unspecified iron deficiency anemia type- Primary documented in this encounter Additional Health Concerns Assessment Noted Time PHQ-9 Depression Total Score: 0 02/10/20 9:50 AM EDT documented as of this encounter Care Teams Failure Analysis Engineer Relationship Specialty Start Date End Date Marielle Hayes MD [address] [place] [address] PCP - General Family Medicine 01/25/22 marielle Hayes Final Cigar And Box ExaminerNon Destructive Testing Scientist 07/11/23 Bryan Vyas Final Cigar And Box ExaminerNon Destructive Testing Scientist 11/05/23 documented as of this encounter
--- OUTSIDE RECORDS SUMMARY | 2024-07-08 19:31 | XMS_ITS | Encounter Summary ---
Author Organization [employer] Address [address] [facility] 7t [place] [address] Care Team Providers Care Mail Carrier Name Role Phone Marielle Hayes MD Primary Care Provider [phone] Reason for Visit * Reason Onset Date Comments ER Follow-up 12/18/2023 Encounter Details Date Type Department Care Team (Late st Contact Info) Description 12/18/2023 Telephone [facility] [address] [place] [address] Marielle Hayes MD [address] [place], [place] [id number] ER Follow-up Social History Tobacco Use Types [...] t he electric, gas, oil or water [employer] threatened to shut off services in your [...] weakness and Pt fell down. Ptwent to [facility] via ambulance but, because it was so full Pt then went to [facility] 12/17/23 .Pt did have xrays done and was told the pain was due to sciatica and there was a curvature in the spine. [facility] information is not on the chart but, [...] Reason: Other Override Notes: Pt seen in [facility] Ed Video visit not offered Positive Triage [...] 1:52 PM EDT Tc from Alondra at [facility] stating pt is still in severe pain and is requesting to speak to a nurse or be seen. Alondra stated pt is unable to take medication prescribed at [facility] due to breast feeding. Advised will forward to triage nurse. Contact pt at [phone] * Telephone Encounter - Nirav Corrales - 12/18/2023 8:31 AM EDT Patient calling to report ED visit on : Date: 12/16 Hospital: [facility] Seen for: Back Pain Patient advised will forward to team nurse for follow up documented in this encounter Plan of Treatment Upcoming Encounters Date Type Department Care Team (Late st Contact Info) Description 08/18/2024 10:00 AM EDT Office Visit [facility] [address] [place] [address] Celso Gil documented as of this encounter Visit Diagnoses Not on filedocumented in this encounter Care Teams Mail Carrier Relationship Specialty Start Date End Date Marielle Hayes MD [address] [place] [id number] PCP - General Family Medicine 01/25/22 marielle Hayes Segment Block LayerCrossword Puzzle Maker 07/11/23 Bryan Vyas Segment Block LayerCrossword Puzzle Maker 11/05/23 documented as of this encounter
--- OUTSIDE RECORDS SUMMARY | 2024-07-08 19:31 | XMS_ITS | Encounter Summary ---
Author Organization [employer] Address [address] [facility] [address] [place] [address] Care Team Providers Care Telecom Field Technician Name Role Phone Marielle Hayes MD Primary Care Provider [phone] Reason for Visit * Reason Onset Date Comments Nurse Triage 12/13/2023 Encounter Details Date Type Department Care Team (Late st Contact Info) Description 12/13/2023 Telephone [facility] [address] [place] [address] Marielle Hayes MD [address] [place], [place] [phone] Nurse Triage Social History Tobacco Use Types [...] Description 08/18/2024 10:00 AM EDT Office Visit [facility] [address] [place] [address] Cleso Gil documented as of this encounter Visit Diagnoses Not on filedocumented in this encounter Care Teams Telecom Field Technician Relationship Specialty Start Date End Date Marielle Hayes MD [address] [place] [address] PCP - General Family Medicine 01/25/22 marielle Hayes Wedding Transportation DriverCraft Artist 07/11/23 Bryan Vyas Wedding Transportation DriverCraft Artist 11/05/23 documented as of this encounter
--- OUTSIDE RECORDS SUMMARY | 2024-07-08 19:31 | XMS_ITS | Clinical Summary ---
Author Organization [facility] Address [address] [place] [address] Care Team Providers Care Theology Professor Name Role Phone Unavailable Primary Care Provider Unavailabl e Social History Tobacco Use Types Packs/Day Years Used Date Smoking Tobacco: Never Assessed Comments Unknown Sex and Gender Information Value Date Recorded Sex Assigned at Not on file Legal Sex Female 4:22 PM EST Gender Identity Not on file Sexual Orientation Not on file Plan of Treatment Health Maintenance Due Date Last Done Comments Gonorrhea/Chlamydia Screening 2000 HPV Vaccines (1 - 3-dose series) 2015 DTaP,Tdap,and Td Vaccines (1 - Tdap) 2019 Hepatitis B Vaccines (1 of 3 - 19+ 3-dose series) 2019 Cervical Cancer Screening: P ap Smear 2021 Depression Screening 04/04/2022 HIV Screening 04/04/2022 Hepatitis C Screening 04/04/2022 Social Influencers of Health Screening 04/04/2022 COVID-19 Vaccine (2023-2 5 season) 2024 Influenza Vaccine (#1) 2024 HIB Vaccines Aged Out No longer eligi ble based on patient's age to complete this topic Hepatitis A Vaccines Aged Out No long er eligible based on patient's age to complete this topic IPV Vaccines Aged Out No longer eligi ble based on patient's age to complete this topic MMR Vaccines Aged Out No longer eligi ble based on patient's age to complete this topic Meningococcal ACWY Vaccine Aged Out N o longer eligible based on patient's age to complete this topic Meningococcal B Vacine Aged Out No lo nger eligible based on patient's age to complete this topic Pneumococcal Vaccine: Pediat rics (0 to 5 Years) and At-Risk Patients (6 to 64 Years) Aged Out No longer eligible b ased on patient's age to complete this topic RSV Immunization Patients Un alejandro 20 months Aged Out No longer eligible b ased on patient's age to complete this topic Varicella Vaccines Aged Out No longer eligible based on patient's age to complete this topic
--- OUTSIDE RECORDS SUMMARY | 2024-07-08 19:31 | XMS_ITS | Encounter Summary ---
Author Organization [employer] Address [address] [facility] [address] [place] [address] Care Team Providers Care Yarn Hauler Name Role Phone Marielle Hayes MD Primary Care Provider [phone] Encounter Details Date Type Department Care Team ([facility] st Contact Info) Description 11/26/2023 Orders Only [facility] [address] [place] [address] Bora Gil MD [address] [place] [address] Social History Tobacco Use Types Packs/Day Years [...] Description 08/18/2024 10:00 AM EDT Office Visit [facility] [address] [place] [address] Celso Gil documented as of this encounter Procedures Procedure Name Priority Date/Time Associated Diagnosis Comments XR LUMBAR SPINE 2-3 VIEWS Routine 12/17/2023 7:05 PM EDT documented in this encounter Results * XR Lumbar Spine 2-3 Views (12/17/2023 7:05 PM EDT) Anatomical Region Laterality Modality Spine, L-spine Radiographic Bailee ging 12/17/2023 7:05 PM EDT Narrative 12/17/2023 8:08 PM EDT ? [facility] ?[address] ?[place] [address] ?XRay Report ? Signed ? Patient: Elatifi,Soukaina ?MR#: [id number] ?? [id number] ? : 2000 ?Acct:[id number] ? Age/Sex: 23 / F ?ADM Date: 12/17/23 ? Loc: HO.ED ? Attending Dr: ? Ordering Physician: Stephanie Hopkins ?? Date of Service: 12/17/23 ?? Procedure(s): XR lumbar spine 2-3V ?? Accession Number(s): [id number] ? cc: Stephanie Hopkins; Marielle Hayes MD [...] 12/17/23 2005 ? DD/ ? TD/TT: ? Traffic Engineering Technician: ? Procedure Note Gem, Image - 12/17/[address] [address] XRay Report Signed Patient: David SilvaMR#: [id number] : 2000Acct:[id number] Age/Sex: 23 / FADM Date: 12/17/23 Loc: HO.ED Attending Dr: Ordering Physician: Stephanie Hpokins Date of Service: 12/17/23 Procedure(s): XR lumbar spine 2-3V Accession Number(s): [id number] cc: Stephanie Hopkins; Marielle Hayes MD EXAMINATION: [...] Borrero in OV> 12/17/232004 DD/ 04 TD/TT: Traffic Engineering Technician: [facility] External Provider IMG XR PROCEDURES Edited Result - Final documented in this encounter Visit Diagnoses Not on filedocumented in this encounter Care Teams Yarn Hauler Relationship Specialty Start Date End Date Marielle Hayes MD [address] [place] [address] PCP - General Family Medicine 01/25/22 marielle Hayes Certified Flex Endoscope ReprocessorMusical Instrument Maker Or Repairer 07/11/23 Bryan Vyas Certified Flex Endoscope ReprocessorMusical Instrument Maker Or Repairer 11/05/23 documented as of this encounter
--- OUTSIDE RECORDS SUMMARY | 2024-07-08 19:31 | XMS_ITS | Clinical Summary ---
Author Organization [employer] Address [address] [facility] [address] [place] [address] Care Team Providers Care Control Area Operator Name Role Phone Andrea Hayes MD Primary Care Provider [phone] Allergies No known active allergies Medications simethicone [...] 2 times daily. 90 g 1 02/10/20 Active Additional Information Patient not taking.Reported on [...] 2 times daily. 180 tablet 1 02/11/20 Active Additional Information Patient not taking.Reported on 02/14/2024 ibuprofen 400 MG tablet Take 1 tablet (400 mg) by mouth every 8 (eight) hours if needed for moderate pain. 60 tablet 03/24/20 24 Active nitrofurantoin, macrocrystal-mo nohydrate, (Macrobid) 100 MG capsuleIndicati ons:UTI symptoms Take 1 capsule (100 mg) by mouth 2 times daily for 7 days. 14 capsule 07/09/19 25 025 Active acetaminophen (Tylenol Extra Strength) 500 MG tabletIndicatio ns:UTI symptoms Take 2 tablets (1,000 mg) by mouth every 8 (eight) hours if needed for mild pain for up to 10 days. 30 tablet 07/09/19 25 025 Active Active Problems Problem Noted Date Diagnosed Date UTI symptoms 07/08/2024 Assessment & Plan (07/08/2024 10:35 AM EST): Drink plenty of fluids do not hold the urine I will prescribe Macrobid 100 mg twice a day for 1 week in light of clinical symptoms Acetaminophen as needed x-ray results: UA and culture done patient will be contacted with culture results Dizziness 07/08/2024 Assessment & Plan (07/08/2024 10:37 AM EST): I reviewed with patient her glucose and A1c results, I let her know glucose is 119 and A1c is 5.7 this means that she does not has diabetes at this time but she may be at risk, counseling done about healthy diet and weight reduction. I advised to drink plenty of water and change positions slowly History of gestational diabetes 02/10/2024 Assessment & [...] Encounters Date Type Department Care Team Description 07/08/2024 9:40 AM EST Office Visit [facility] [address] [address] Margot Alexandra MD Dizziness; UTI symptoms 06/06/2024 Orders Only GENERIC EXTERNAL DATA DEPARTMENT Provider, Generic External Data 04/22/2024 5:20 PM EST Office Visit [facility] [address] [address] Shashi Flynn MD Dyspnea, unspecified type (Primary Dx); Dizziness 04/22/2024 [facility] [address] [address] Shalonda Dent, DWAYNE Nurse Triage 04/20/2024 Orders Only GENERIC EXTERNAL DATA DEPARTMENT Provider, Generic External Data 04/14/2024 Orders Only [facility] External Provider, [facility] from Last 3 Months Immunizations Name Administration [...] Mass Index 33.57 07/08/2024 10:02 AM EST Plan of Treatment Upcoming Encounters Date Type Department Care Team (Late st Contact Info) Description 08/18/2024 10:00 AM EDT Office Visit [facility] ADULT DENTAL [address] [place], [place] [phone] Celso Gil Health Maintenance Due Date Last [...] 2015 (Patient Refused) SDOH Screening 02/09/2025 02/10/2024 HPV/Cotest 06/25/2025 Pap Smear 06/25/2025 06/25/2022 Diabetes: Hemoglobin A1C 07/08/2025 025, 01/27/2024 Tobacco Screening 07/08/2025 07/08/2024 Dental X-Ray: Full Mouth 01/29/2027 024, 11/26/2023 [...] GLUCOSE Routine 07/08/2024 10:04 AM EST Dizziness HCG, QL, URINE Routine 06/06/2024 8:38 PM EST URINALYSIS, COMPLETE, WITH REFLEX TO CULTURE Routine 06/06/2024 8:38 PM EST LIPASE Routine 06/06/2024 7:51 PM EST MAGNESIUM Routine 06/06/2024 7:51 PM EST BASIC METABOLIC PANEL Routine 06/06/2024 7:51 PM EST HEPATIC FUNCTION PANEL Routine 7:51 PM EST CBC WITH AUTO DIFFERENTIAL Routine 06/06/2024 7:51 PM EST ECG 12-LEAD Routine 04/22/2024 8:35 PM EST Dyspnea, unspecified type VITAMIN B12/FOLATE, SERUM PANEL Routine 04/20/2024 3:20 PM EST FERRITIN Routine 04/20/2024 3:20 PM EST CBC Routine 04/20/2024 3:20 PM EST FL ESOPHAGUS BARIUM SWALLOW WITH AIR Routine 04/14/2024 9:30 AM EST PROPHYLAXIS - ADULT Routine 02/14/2024 9 :00 AM EDT INTRAORAL - COMPLETE SERIES OF RADIOGRAPHIC IMAGES Routine 01/29/2024 9:30 AM EDT COMPREHENSIVE ORAL EVALUATION - NEW OR ESTABLISHED PATIENT Routine 01/29/2024 9:30 AM EDT HEPATITIS C ANTIBODY Routine 01/27/2024 10:13 AM EDT HIV 1/2 ANTIGEN/ANTIBODY, FOURTH GENERATION W/RFL Routine 01/27/2024 10:13 AM EDT HM PAP/HPV Routine 06/25/2022 from Last 3 Months or Most Recently Relevant to Health Maintenance Results * (ABNORMAL) POCT urinalysis dipstick manually [...] OK Urine 07/08/2024 10:3 4 AM EST us Margot Marquez MD POINT OF CARE TEST EN TER/EDIT ORDERABLES Final Result * POCT HGB A1C (07/08/2024 10:06 AM EST) Hemoglobin A1C 5.7 4.0 - 6.0 % QC Media Lot # [id number] Lot# Expiration Date Blood 07/08/2024 10:0 6 AM EST us Margot Marquez MD POINT OF CARE TEST EN TER/EDIT ORDERABLES Final Result * POCT Glucose (07/08/2024 10:04 AM EST) Glucose Blood, POC 118 60 - 200 mg/dL Comment:Fasting QC Media Lot # [id number] Lot# Expiration Date Blood Capillary blood specimen / Unknown 07/08/2024 10:04 AM EST us Margot Marquez MD POINT OF CARE TEST EN TER/EDIT ORDERABLES Final Result * (ABNORMAL) Urinalysis, Complete, with Reflex to Culture (06/06/2024 8:38 PM EST) Color Urine Yellow [facility] Appearance Urine Clear [facility] PH 6.5 5.0 - 9.0 [facility] Glucose Urine UA Negative Negative mg/dL [facility] Urine Blood Negative Negative [facility] Specific [place] - Urine 1.025 1.005 - 1.025 [facility] Urine Protein Negative Neg-Trace mg/dL [facility] Urine Ketones Trace Negative mg/dL [facility] Nitrite Urine Negative Negative [facility] Leukocyte Esterase Urine Trace(A) Negative [facility] RBC Urine 0-2 0 - 2 /HPF [facility] Urine WBC 0-5 0 - 5 /HPF [facility] Urine Squamous Epithelial Cell 3-5 0 - 2 /HPF [facility] Urine Bacteria None Seen None Seen [facility] Hyaline Casts, Urine 0-2 0 - 2 /LPF [facility] 06/06/2024 8:38 PM EST 06/06/2024 8:43 PM EST Narrative [facility] - 06/06/2024 9:00 PM EST Urine, Clean Catch us Generic External Data Provider LAB URINE ORDERAB LES Final Result [facility] [address] [place] [phone] * HCG, Qualitative, Urine (06/06/2024 8:38 PM EST) Urine NEGATIVE NEGATIVE [facility] Comment:This test was develo ped to detect early . Falsenegative results may occur after the 5th - 7th week ofpregnancy when using this test method. If clinicallyindicated, consider a serum hCG. 06/06/2024 8:38 PM EST 06/06/2024 8:43 PM EST us Generic External Data Provider LAB URINE ORDERAB LES Final Result [facility] [address] [place] [address] [phone] * (ABNORMAL) CBC auto differential (06/06/2024 7:51 PM EST) White Blood Count 4.8 4.8 - 10.8 X10*3/uL [facility] Red Blood Count 5.06 4.20 - 5.50 X10*6/uL [facility] Hemoglobin 11.9(L) 12.0 - 16.0 g/dl [facility] Hematocrit 37.5 37.0 - 47.0 % [facility] Mean Corpuscular Volume 74.1(L) 80.0 - 98.0 fL [facility] Mean Corpuscular Hemoglobin 23.5(L) 27.0 - 33.0 pg [facility] Mean Corpuscular HGB Conc 31.7 31.0 - 35.0 g/dl [facility] Red Cell Distribution Width 16.8(H) 11.0 - 16.0 % [facility] Platelet Count 338 160 - 400 X10*3/uL [facility] Mean Platelet Volume 9.2(L) 9.4 - 12.3 fL [facility] Neutrophils Percent Auto 50.4 45 - 73 % [facility] Imm Gran Pct Auto 0.2 0.0 - 0.4 % [facility] Lymphocytes Percent Auto 36.2 20 - 40 % [facility] Monocytes Percent Auto 11.6(H) 2 - 11 % [facility] Eosinophils Percent Auto 1.2 0 - 4 % [facility] Basophils Percent Auto 0.4 0 - 2 % [facility] NRBC Pct Auto 0.0 0.0 - 0.2 /100WBC [facility] Neutrophils Absolute Auto 2.4 2.0 - 8.3 x10*3/uL [facility] Imm Gran Abs Auto 0.01 0.00 - 0.03 X10*3/uL [facility] Lymphocytes Absolute Auto 1.8 1.2 - 4.9 X10*3/uL [facility] Monocytes Absolute Auto 0.6 0.1 - 1.2 X10*3/uL [facility] Eosinophils Absolute Auto 0.1 0.0 - 0.4 X10*3/uL [facility] Basophils Absolute Auto 0.0 0.0 - 0.2 X10*3/uL [facility] NRBC Abs Auto 0.000 0.0 - 0.012 X10*3/uL [facility] 06/06/2024 7:51 PM EST 06/06/2024 7:55 PM EST us Generic External Data Provider LAB BLOOD ORDERAB LES Final Result Performing Organization Address [facility]/ZIP Co de Phone Number [facility] [address] [place] [phone] * Magnesium (06/06/2024 7:51 PM EST) Magnesium 1.9 1.6 - 2.6 mg/dL [facility] 06/06/2024 7:51 PM EST 06/06/2024 7:55 PM EST Generic External Data Provider LAB BLOOD ORDERAB LES Final Result Performing Organization Address [facility]/ZIP Co de Phone Number [facility] [address] [place] [phone] * Lipase (06/06/2024 7:51 PM EST) Lipase 37 8 - 78 U/L [facility] 06/06/2024 7:51 PM EST 06/06/2024 7:55 PM EST Generic External Data Provider LAB BLOOD ORDERAB LES Final Result Performing Organization Address [facility] Co de Phone Number [facility] [address] [place] [phone] * Hepatic Function Panel (06/06/2024 7:51 PM EST) Pathologist [facility] Bilirubin, Total 0.3 0.0 - 1.0 mg/dL [facility] Bilirubin, Direct 0.1 0.0 - 0.5 mg/dL [facility] Aspartate Amino Transferase 20 5 - 31 U/L [facility] Alanine Aminotransferase 18 0 - 31 U/L [facility] Total Protein 7.8 6.5 - 8.0 g/dL [facility] Albumin Level 4.2 3.5 - 5.0 g/dL [facility] Alkaline Phosphatase 100 39 - 117 U/L [facility] 06/06/2024 7:51 PM EST 06/06/2024 7:55 PM EST us Generic External Data Provider LAB BLOOD ORDERAB LES Final Result Performing Organization Address [facility] Co de Phone Number [facility] [address] [place] [phone] * (ABNORMAL) Basic Metabolic Panel (06/06/2024 7:51 PM EST) Pathologist [facility] Sodium 142 135 - 145 mmol/L [facility] Potassium 3.7 3.3 - 5.1 mmol/L [facility] Chloride 112(H) 96 - 108 mmol/L [facility] Carbon Dioxide 22 22 - 29 mmol/L [facility] Anion Gap 12 12 - 20 [facility] Urea Nitrogen (BUN) 10 9 - 16 mg/dL [facility] Creatinine, Serum 0.69 0.5 - 1.4 mg/dL [facility] Creatinine Clr Calc Pharmacy 146.0 [facility] Comment:Provided height and weight: 167.64 cm,95 kg.eGFR (calculated from the MDRD study equation) and eCrCl(calculated from the Cockcroft-Gault equation) are based ondifferent parameters and may not yield comparable results.If eCrCl result is absurd, please check patient'sheight/weight. Estimated Glomerular Filt Rate >60 [facility] Comment:Chronic Kidney Disea se: Estimated GFR < 60 mL/min/1.55v1Jsuokd Kidney Disease: Estimated GFR < 15 mL/min/1.73m2 Glucose 98 60 - 115 mg/dL [facility] Calcium 8.8 8.4 - 10.2 mg/dL [facility] 06/06/2024 7:51 PM EST 06/06/2024 7:55 PM EST us Generic External Data Provider LAB BLOOD ORDERAB LES Final Result [facility] [address] [place], [place] [phone] * ECG 12 lead (04/22/2024 8:35 PM EST) Narrative Shashi Flynn MD - 04/22/2024 8:35 PM EST NSR 69, no arrhythmia, normal axis, no ST-T changes, no Q-waves. us Shashi Flynn MD ECG ORDERABLES Final Result * Vitamin B12 (Cobalamin) and Folate Panel, Serum (04/20/2024 3:20 PM EST) Vitamin B12 367 200 - 900 pg/mL [facility] Comment:NORMAL 200-900 PG/M L INDETERMINATE 160-199 PG/ML DEFICIENT < 160 PG/ML Folate 10.6 > or = 4.0 ng/mL [facility] Comment:Reference Values:> o r = 4.0 ng/mL< 4.0 ng/mL suggests folate deficiency Methotrexate, aminopterin and folinic acid(leucovorin) are chemotherapeutic agents whose molecularstructures are similar to folate; therefore, the Architectfolate assay cannot be used for patients using these drugs. 04/20/2024 3:20 PM EST 04/20/2024 3:20 PM EST us Generic External Data Provider LAB BLOOD ORDERAB LES Final Result [facility] [address] [place] [phone] * (ABNORMAL) CBC (04/20/2024 3:20 PM EST) White Blood Count 6.1 4.8 - 10.8 X10*3/uL [facility] Red Blood Count 4.91 4.20 - 5.50 X10*6/uL [facility] Hemoglobin 11.3(L) 12.0 - 16.0 g/dl [facility] Hematocrit 36.4(L) 37.0 - 47.0 % [facility] Mean Corpuscular Volume 74.1(L) 80.0 - 98.0 fL [facility] Mean Corpuscular Hemoglobin 23.0(L) 27.0 - 33.0 pg [facility] Mean Corpuscular HGB Conc 31.0 31.0 - 35.0 g/dl [facility] Red Cell Distribution Width 17.6(H) 11.0 - 16.0 % [facility] Platelet Count 381 160 - 400 X10*3/uL [facility] Mean Platelet Volume 9.9 9.4 - 12.3 fL [facility] NRBC Pct Auto 0.0 0.0 - 0.2 /100WBC [facility] NRBC Abs Auto 0.000 0.0 - 0.012 X10*3/uL [facility] 04/20/2024 3:20 PM EST 04/20/2024 3:20 PM EST us Generic External Data Provider LAB BLOOD ORDERAB LES Final Result Performing Organization Address [facility] de Phone Number [facility] [address] [place] [phone] * Ferritin (04/20/2024 3:20 PM EST) Ferritin 12 10 - 122 ng/mL [facility] 04/20/2024 3:20 PM EST 04/20/2024 3:20 PM EST Generic External Data Provider LAB BLOOD ORDERAB LES Final Result Performing Organization Address [facility] Phone Number [facility] [address] [place] [phone] * FL Esophagus Barium Swallow w/Air (04/14/2024 9:30 AM EST) Anatomical Region Laterality Modality Head, Neck Radiographic Bailee ging 04/14/2024 9:30 AM EST Narrative 04/15/2024 5:45 PM EST ? [facility] ?[address] ?[place] [address] ? Fluoroscopy Report ? Signed ? Patient: David Silva ?MR#: [id number] ?? [id number] ? : 2000 ?Acct:[id number] ? Age/Sex: 24 / F ?ADM Date: 04/14/24 ? Loc: HO.XRAY ? Attending Dr: Gina Nicole MD ? Ordering Physician: Gina Nicole MD ?? Date of Service: 04/14/24 ?? Procedure(s): FL barium swallow with air ?? Accession Number(s): [id number] ? cc: Andrea Hayes MD; Gina Nicole [...] Ramos MD ??04/15/2024 05:43 PM EST RP ?? Workstation: [id number] ? Dictated By: ?Jeramie Lepe ? Signed By: ?<Electronically signed by Jeramie Lepe in OV> ? 04/15/24 1743 ?<Electronically signed by Naun Ramos MD in OV> ? 04/15/24 1745 ? DD/ 9 ? TD/TT: 04/14/2430 ? Form Setter Helper: ? Procedure Note Jimmie Rabago - 04/15/[address] [address] Fluoroscopy Report Signed Patient: David SilvaMR#: [id number] : 2000Acct:[id number] Age/Sex: 24 / FADM Date: 04/14/24 Loc: HO.XRAY Attending Dr: Gina Nicole MD Ordering Physician: Gina Nicole MD Date of Service: 04/14/24 Procedure(s): FL barium swallow with air Accession Number(s): [id number] cc: Andrea Hayes MD; Gina Nicole MD [...] by: Naun Ramos MD 04/15/2024 05:43 PM [facility] Dictated By: Jeramie Lepe Signed By: <Electronically signed by Jeramie Lepe in OV> 04/15/241742 <Electronically signed by Naun Ramos MD in OV> 04/15/241744 DD/ 9 TD/TT: 04/14/24929 Form Setter Helper: [facility] External Provider IMG FLU OROSCOPY PROCEDURES Final Result * Hepatitis C Ab (01/27/2024 10:13 AM EDT) Pathologist [facility] Hepatitis C Antibody Nonreactive Nonreactive [facility] Comment:Antibodies to HCV no t detected; does not exclude early acuteHCV infection. 01/27/2024 10:1 3 AM EDT 01/27/2024 10:13 AM EDT us Generic External Data Provider LAB BLOOD ORDERAB LES Final Result Performing Organization Address City/[facility]/ZIP Co de Phone Number [facility] [address] [place] [phone] * HIV-1/2 Antigen and Antibodies, Fourth Generation, with Reflexes (01/27/2024 10:13 AM EDT) [facility] HIV AB/AG Nonreactive Nonreactive [facility] Comment:HIV-1 p24 Ag and/or HIV-1/HIV-2 Ab not detected.A test result that is nonreactive does not exclude thepossibility of exposure to or infection with HIV-1 and/orHIV-2. Nonreactive results in this assay for individualswith prior exposure to HIV-1 and/or HIV-2 may be due toantigen and antibody levels that are below the limit ofdetection of this assay.The [employer] Watchdog HIV Ag/Ab Combo assay result andsupplemental assay results should be interpreted inconjunction with the patient's clinical presentation,history and other laboratory results. If the results areinconsistent with clinical evidence, additional testing issuggested to confirm the result. 01/27/2024 10:1 3 AM EDT 01/27/2024 10:13 AM EDT us Generic External Data Provider LAB BLOOD ORDERAB LES Final Result Performing Organization Address [facility]/ZIP Co de Phone Number [facility] [address] [place] [phone] * Hm Pap Smear (06/25/2022) Pap Negative for intraephithelial lesion or malignancy Negative for intraephithelial lesion or malignancy, Other us Historical Provider HEALTH MAINTENANCE Final Result from Last 3 Months or Most Recently Relevant to Health Maintenance Insurance [facility] MEDICAID STAND ADULT Care Teams Control Area Operator Relationship Specialty Start Date End Date Andrea Hayes MD [address] [place] [address] PCP - General Family Medicine 01/25/22 andrea Hayes Guest Experience RepresentativeTechnical Proposal Writer 07/11/23 Bryan Vyas Guest Experience RepresentativeTechnical Proposal Writer 11/05/23
== END 2024-07-08 17:29 | disposition home or self-care (01) ==
LOC: HO.HHCLNP 17:28
PROVIDERS: Visit Provider Internal Medicine
DX: R39.9 Unspecified symptoms and signs involving the genitourinary system (principal)
CPT/HCPCS: 87086

== ENCOUNTER 2024-07-12 14:49 | Emergency (ER) | payer MEDICAID, SELFPAY ==
[2024-07-12 15:01] VITALS: BP 140/75; PULSE 85; RESP 20; TEMP 36.8; O2SAT 97; BMI 33.3
--- NOTE | 2024-07-12 15:12 | ED.GENADULT ---
HPI - General Adult General Chief complaint: Abdominal Pain Stated complaint: kidney pain - possibly History of Present Illness HPI narrative: patient left before completion of treatment by ED provider. Related Data Home Medications ?Medication ?Instructions ?Recorded ?Confirmed cholecalciferol (vitamin D3) 50 50 mcg PO DAILY 04/20/24 mcg (2,000 unit) capsule Previous Rx's ?Medication ?Instructions ?Recorded hydroxyzine HCl 25 mg tablet 25 mg PO Q6-8H PRN itching #20 tabs 07/23/21 hydrocortisone acetate 25 mg 25 mg UT BID #24 ea 03/26/23 rectal suppository (Anusol-HC) polyethylene glycol 3350 17 17 g PO DAILY #510 grams 03/26/23 gram/dose oral powder (Miralax) ondansetron HCl 4 mg tablet 4 mg PO Q8H PRN nausea and 04/28/23 vomiting 4 days #14 tabs dexamethasone 4 mg tablet 4 mg PO BID #6 tabs 12/17/23 benzonatate 200 mg capsule 200 mg PO TID PRN cough #30 caps 12/27/23 ibuprofen 600 mg tablet 600 mg PO Q6H PRN fever or pain 12/27/23 #30 tabs omeprazole 20 mg capsule,delayed 20 mg PO DAILY 90 days #90 caps 01/27/24 release sucralfate 1 gram tablet 1 g PO TID #20 tabs 06/06/24 Allergies Allergy/AdvReac Type Severity Reaction Status Date / Time No Known Allergies Allergy Verified 07/12/24 15:05 [facility] Social History Social History Household Members: Spouse and Family Alcohol intake: never Patient Tobacco Use Status: Never used Tobacco Advance Directives: No Advance Directives Information Provided: No Do you have a plan to hurt others: No Plan Physical Exam ED Vital Signs: Vital Signs - 24 hr 07/12/24 15:01 Temperature 98.2 F Pulse Rate 85 Respiratory Rate 20 Blood Pressure 140/75 H Pulse Oximetry 97 Oxygen Delivery Method Room Air BMI result Body Mass Index 33.3 Course Course Course Narrative: RME 24 yold female presents to the ED for Rigth flank pain and states positive at home. labs, hCG, UA ordered. Medical Decision Making Lab Data 07/12/24 15:42 07/12/24 15:42 Labs: Lab Results 07/12/24 Range/Units 15:42 WBC 5.0 (4.8-10.8) X10*3/uL RBC 4.81 (4.20-5.50) X10*6/uL Hgb 11.4 L (12.0-16.0) g/dl Hct 36.0 L (37.0-47.0) % MCV 74.8 L (80.0-98.0) fL MCH 23.7 L (27.0-33.0) pg MCHC 31.7 (31.0-35.0) g/dl RDW 16.8 H (11.0-16.0) % Plt Count 383 (160-400) X10*3/uL MPV 9.6 (9.4-12.3) fL Immature Gran % (Auto) 0.2 (0.0-0.4) % Neut % (Auto) 47.0 (45-73) % Lymph % (Auto) 38.2 (20-40) % [place] % (Auto) 11.4 H (2-11) % Eos % (Auto) 2.4 (0-4) % Baso % (Auto) 0.8 (0-2) % Lymph # (Auto) 1.9 (1.2-4.9) X10*3/uL [place] # (Auto) 0.6 (0.1-1.2) X10*3/uL Eos # (Auto) 0.1 (0.0-0.4) X10*3/uL Baso # (Auto) 0.0 (0.0-0.2) X10*3/uL Abs Immat Gran (auto) 0.01 (0.00-0.03) X10*3/uL Absolute Neuts (auto) 2.3 (2.0-8.3) x10*3/uL Absolute Nucleated RBC 0.000 (0.0-0.012) X10*3/uL Nucleated RBC % (auto) 0.0 (0.0-0.2) /100WBC PT 12.6 H (10.9-12.4) SEC INR 1.1 (0.9-1.1) APTT 31.8 (26.0-36.8) SEC Sodium 142 (135-145) mmol/L Potassium 4.0 (3.3-5.1) mmol/L Chloride 112 H (96-108) mmol/L Carbon Dioxide 23 (22-29) mmol/L Anion Gap 11 L (12-20) BUN 11 (9-16) mg/dL Creatinine 0.66 (0.5-1.4) mg/dL Estim Creat Clear Calc 151.4 Estimated GFR > 60 Random Glucose 94 (60-115) mg/dL Calcium 8.8 (8.4-10.2) mg/dL Total Bilirubin 0.3 (0.0-1.0) mg/dL AST 17 (5-31) U/L ALT 14 (0-31) U/L Alkaline Phosphatase 101 (39-117) U/L Total Protein 7.5 (6.5-8.0) g/dL Albumin 4.0 (3.5-5.0) g/dL Beta HCG, Quant < 2 mIU/mL Urine Color Yellow Urine Appearance Clear Urine pH 8.0 (5.0-9.0) Ur Specific [place] 1.025 (1.005-1.025) Urine Protein Trace (Neg-Trace) mg/dL Urine Glucose (UA) Negative (Negative) mg/dL Urine Ketones 15 (Negative) mg/dL Urine Blood Negative (Negative) Urine Nitrite Negative (Negative) Ur Leukocyte Esterase Negative (Negative) Urine Test NEGATIVE (NEGATIVE) Blood Type AB Positive Discharge Plan Discharge Clinical Impression: Flank pain Patient Disposition: Left W/O Completing Treatment Prescriptions: No Action hydroxyzine HCl 25 mg tablet 25 mg PO Q6-8H PRN (Reason: itching) Qty: 20 0RF ondansetron HCl 4 mg tablet 4 mg PO Q8H PRN (Reason: nausea and vomiting) 4 Days Qty: 14 0RF dexamethasone 4 mg tablet 4 mg PO BID Qty: 6 0RF benzonatate 200 mg capsule 200 mg PO TID PRN (Reason: cough) Qty: 30 0RF ibuprofen 600 mg tablet 600 mg PO Q6H PRN (Reason: fever or pain) Qty: 30 0RF polyethylene glycol 3350 [Miralax] 17 gram/dose powder 17 g PO DAILY Qty: 510 0RF hydrocortisone acetate [Anusol-HC] 25 mg suppository 25 mg UT BID Qty: 24 0RF sucralfate 1 gram tablet 1 g PO TID Qty: 20 0RF omeprazole 20 mg capsule,delayed release(DR/EC) 20 mg PO DAILY 90 Days Qty: 90 1RF cholecalciferol (vitamin D3) 50 mcg (2,000 unit) capsule 50 mcg PO DAILY Discharge Date/Time: 07/12/24 20:47
--- OUTSIDE RECORDS SUMMARY | 2024-07-12 15:44 | XMS_ITS | Clinical Summary ---
Author Organization [employer] Address [address] [facility] 7t [place] [address] Care Team Providers Care Community Services Manager Name Role Phone Andrea Hayes MD Primary Care Provider [phone] Allergies No known active allergies Medications simethicone [...] Description 07/08/2024 9:40 AM EST Office Visit [facility] [address] [address] Margot Alexandra MD Dizziness; UTI symptoms 06/06/2024 Orders Only GENERIC EXTERNAL DATA DEPARTMENT Provider, Generic External Data 04/22/2024 5:20 PM EST Office Visit [facility] [address] [address] Shashi Flynn MD Dyspnea, unspecified type (Primary Dx); Dizziness 04/22/[address] [facility] [address] [address] Shalonda Dent, DWAYNE Nurse Triage 04/20/2024 Orders Only GENERIC EXTERNAL DATA DEPARTMENT Provider, Generic External Data 04/14/2024 Orders Only [facility] External Provider, [facility] from Last 3 Months Immunizations Name Administration [...] Visit [facility] [address] [place], [place] [phone] Celso Gil Health Maintenance Due Date Last [...] Routine 07/08/2024 10:34 AM EST UTI symptoms CULTURE, URINE, ROUTINE Routine 07/08/2024 10:33 AM EST UTI symptoms POCT GLYCATED HEMOGLOBIN, [...] TEST EN TER/EDIT ORDERABLES Final Result * Culture, Urine, Routine (07/08/2024 10:33 AM EST) Urine Urine specimen obtained by clean catch procedure / Unknown 07/08/2024 10:33 AM EST 07/08/2024 5:29 PM EST Comment:UACC Narrative [facility] - 07/10/2024 12:17 PM EST Urine Culture Report Result Urine Culture 50,000 to 100,000 cfu/ml Urine Culture Mixed bacterial migdalia characteristic of Urine Culture urogenital contamination. Specimen Source: Urine clean catch Margot Marquez MD LAB MICROBIOLOGY - GE NERAL ORDERABLES Final Result [facility] [address] [place] [address] [phone] * POCT HGB A1C (07/08/2024 10:06 AM EST) Hemoglobin A1C 5.7 4.0 - 6.0 % QC Media Lot # [id number] Lot# Expiration Date Blood 07/08/2024 10:0 6 AM EST Result [facility] Margot Marquez MD POINT OF CARE TEST EN TER/EDIT ORDERABLES Final Result * POCT Glucose (07/08/2024 10:04 AM EST) Glucose Blood, POC 118 60 - 200 mg/dL Comment:Fasting QC Media Lot # [id number] Lot# Expiration Date Blood Capillary blood specimen / Unknown 07/08/2024 10:04 AM EST Result [facility] Margot Marquez MD POINT OF CARE TEST EN TER/EDIT ORDERABLES Final Result * (ABNORMAL) Urinalysis, Complete, with Reflex to Culture (06/06/2024 8:38 PM EST) Color Urine Yellow [facility] Appearance Urine Clear [facility] PH 6.5 5.0 - 9.0 [facility] Glucose Urine UA Negative Negative mg/dL [facility] Urine Blood Negative Negative [facility] Specific [place] - Urine 1.025 1.005 - 1.025 [facility] Urine Protein Negative Neg-Trace mg/dL [facility] Urine Ketones Trace Negative mg/dL [facility] Nitrite Urine Negative Negative [facility] Leukocyte Esterase Urine Trace(A) Negative [facility] RBC Urine 0-2 0 - 2 /HPF [facility] Urine WBC 0-5 0 - 5 /HPF [facility] Urine Squamous Epithelial Cell 3-5 0 - 2 /HPF [facility] Urine Bacteria None Seen None Seen [facility] Hyaline Casts, Urine 0-2 0 - 2 /LPF [facility] 06/06/2024 8:38 PM EST 06/06/2024 8:43 PM EST Narrative [facility] - 06/06/2024 9:00 PM EST Urine, Clean Catch Generic External Data Provider LAB URINE ORDERAB LES Final Result Performing Organization Address [facility] de Phone Number [facility] [address] [place] [phone] * HCG, Qualitative, Urine (06/06/2024 8:38 PM EST) Pathologist [facility] Urine NEGATIVE NEGATIVE [facility] Comment:This test was develo ped to detect early . Falsenegative results may occur after the 5th - 7th week ofpregnancy when using this test method. If clinicallyindicated, consider a serum hCG. 06/06/2024 8:38 PM EST 06/06/2024 8:43 PM EST Generic External Data Provider LAB URINE ORDERAB LES Final Result Performing Organization Address [facility] Co de Phone Number [facility] [address] [place] [phone] * (ABNORMAL) CBC auto differential (06/06/2024 7:51 PM EST) Pathologist [facility] White Blood Count 4.8 4.8 - 10.8 X10*3/uL [facility] Red Blood Count 5.06 4.20 - 5.50 X10*6/uL [facility] Hemoglobin 11.9(L) 12.0 - 16.0 g/dl [facility] Hematocrit 37.5 37.0 - 47.0 % [facility] Mean Corpuscular Volume 74.1(L) 80.0 - 98.0 fL [facility] Mean Corpuscular Hemoglobin 23.5(L) 27.0 - 33.0 pg [facility] Mean Corpuscular HGB Conc 31.7 31.0 - 35.0 g/dl [facility] Red Cell Distribution Width 16.8(H) 11.0 - 16.0 % [facility] Platelet Count 338 160 - 400 X10*3/uL [facility] Mean Platelet Volume 9.2(L) 9.4 - 12.3 fL [facility] Neutrophils Percent Auto 50.4 45 - 73 % [facility] Imm Gran Pct Auto 0.2 0.0 - 0.4 % [facility] Lymphocytes Percent Auto 36.2 20 - 40 % [facility] Monocytes Percent Auto 11.6(H) 2 - 11 % [facility] Eosinophils Percent Auto 1.2 0 - 4 % [facility] Basophils Percent Auto 0.4 0 - 2 % [facility] NRBC Pct Auto 0.0 0.0 - 0.2 /100WBC [facility] Neutrophils Absolute Auto 2.4 2.0 - 8.3 x10*3/uL [facility] Imm Gran Abs Auto 0.01 0.00 - 0.03 X10*3/uL [facility] Lymphocytes Absolute Auto 1.8 1.2 - 4.9 X10*3/uL [facility] Monocytes Absolute Auto 0.6 0.1 - 1.2 X10*3/uL [facility] Eosinophils Absolute Auto 0.1 0.0 - 0.4 X10*3/uL [facility] Basophils Absolute Auto 0.0 0.0 - 0.2 X10*3/uL [facility] NRBC Abs Auto 0.000 0.0 - 0.012 X10*3/uL [facility] 06/06/2024 7:51 PM EST 06/06/2024 7:55 PM EST us Generic External Data Provider LAB BLOOD ORDERAB LES Final Result Performing Organization Address [facility] Co de Phone Number [facility] [address] [place] [phone] * Magnesium (06/06/2024 7:51 PM EST) Magnesium 1.9 1.6 - 2.6 mg/dL [facility] 06/06/2024 7:51 PM EST 06/06/2024 7:55 PM EST Generic External Data Provider LAB BLOOD ORDERAB LES Final Result Performing Organization Address [facility] Co nj Phone Number [facility] [address] [place] [phone] * Lipase (06/06/2024 7:51 PM EST) Lipase 37 8 - 78 U/L [facility] 06/06/2024 7:51 PM EST 06/06/2024 7:55 PM EST Generic External Data Provider LAB BLOOD ORDERAB LES Final Result Performing Organization Address [facility] Phone Number [facility] [address] [place] [phone] * Hepatic Function Panel (06/06/2024 7:51 PM EST) Bilirubin, Total 0.3 0.0 - 1.0 mg/dL [facility] Bilirubin, Direct 0.1 0.0 - 0.5 mg/dL [facility] Aspartate Amino Transferase 20 5 - 31 U/L [facility] Alanine Aminotransferase 18 0 - 31 U/L [facility] Total Protein 7.8 6.5 - 8.0 g/dL [facility] Albumin Level 4.2 3.5 - 5.0 g/dL [facility] Alkaline Phosphatase 100 39 - 117 U/L [facility] 06/06/2024 7:51 PM EST 06/06/2024 7:55 PM EST us Generic External Data Provider LAB BLOOD ORDERAB LES Final Result Performing Organization Address City/[facility]/ZIP Co de Phone Number [facility] [address] [place] [phone] * (ABNORMAL) Basic Metabolic Panel (06/06/2024 7:51 PM EST) Sodium 142 135 - 145 mmol/L [facility] Potassium 3.7 3.3 - 5.1 mmol/L [facility] Chloride 112(H) 96 - 108 mmol/L [facility] Carbon Dioxide 22 22 - 29 mmol/L [facility] Anion Gap 12 12 - 20 [facility] Urea Nitrogen (BUN) 10 9 - 16 mg/dL [facility] Creatinine, Serum 0.69 0.5 - 1.4 mg/dL [facility] Creatinine Clr Calc Pharmacy 146.0 [facility] Comment:Provided height and weight: 167.64 cm,95 kg.eGFR (calculated from the MDRD study equation) and eCrCl(calculated from the Cockcroft-Gault equation) are based ondifferent parameters and may not yield comparable results.If eCrCl result is absurd, please check patient'sheight/weight. Estimated Glomerular Filt Rate >60 [facility] Comment:Chronic Kidney Disea se: Estimated GFR < 60 mL/min/1.02b0Rhpxnd Kidney Disease: Estimated GFR < 15 mL/min/1.73m2 Glucose 98 60 - 115 mg/dL [facility] Calcium 8.8 8.4 - 10.2 mg/dL [facility] 06/06/2024 7:51 PM EST 06/06/2024 7:55 PM EST us Generic External Data Provider LAB BLOOD ORDERAB LES Final Result Performing Organization Address City/[facility]/ZIP Co de Phone Number [facility] [address] [place] [phone] * ECG 12 lead (04/22/2024 8:35 PM EST) Narrative Shashi Flynn MD - 04/22/2024 8:35 PM EST NSR 69, no arrhythmia, normal axis, no ST-T changes, no Q-waves. us Shashi Flynn MD ECG ORDERABLES Final Result * Vitamin B12 (Cobalamin) and Folate Panel, Serum (04/20/2024 3:20 PM EST) Vitamin B12 367 200 - 900 pg/mL [facility] Comment:NORMAL 200-900 PG/ML INDETERMINATE 160-199 PG/ML DEFICIENT < 160 PG/ML Folate 10.6 > or = 4.0 ng/mL [facility] Comment:Reference Values:> o r = 4.0 ng/mL< 4.0 ng/mL suggests folate deficiency Methotrexate, aminopterin and folinic acid(leucovorin) are chemotherapeutic agents whose molecularstructures are similar to folate; therefore, the Architectfolate assay cannot be used for patients using these drugs. 04/20/2024 3:20 PM EST 04/20/2024 3:20 PM EST us Generic External Data Provider LAB BLOOD ORDERAB LES Final Result [facility] [address] [place] [phone] * (ABNORMAL) CBC (04/20/2024 3:20 PM EST) White Blood Count 6.1 4.8 - 10.8 X10*3/uL [facility] Red Blood Count 4.91 4.20 - 5.50 X10*6/uL [facility] Hemoglobin 11.3(L) 12.0 - 16.0 g/dl [facility] Hematocrit 36.4(L) 37.0 - 47.0 % [facility] Mean Corpuscular Volume 74.1(L) 80.0 - 98.0 fL [facility] Mean Corpuscular Hemoglobin 23.0(L) 27.0 - 33.0 pg [facility] Mean Corpuscular HGB Conc 31.0 31.0 - 35.0 g/dl [facility] Red Cell Distribution Width 17.6(H) 11.0 - 16.0 % [facility] Platelet Count 381 160 - 400 X10*3/uL [facility] Mean Platelet Volume 9.9 9.4 - 12.3 fL [facility] NRBC Pct Auto 0.0 0.0 - 0.2 /100WBC [facility] NRBC Abs Auto 0.000 0.0 - 0.012 X10*3/uL [facility] 04/20/2024 3:20 PM EST 04/20/2024 3:20 PM EST us Generic External Data Provider LAB BLOOD ORDERAB LES Final Result Performing Organization Address [facility] Co de Phone Number [facility] [address] [place] [phone] * Ferritin (04/20/2024 3:20 PM EST) Ferritin 12 10 - 122 ng/mL [facility] 04/20/2024 3:20 PM EST 04/20/2024 3:20 PM EST Generic External Data Provider LAB BLOOD ORDERAB LES Final Result Performing Organization Address [facility] de Phone Number [facility] [address] [place] [phone] * FL Esophagus Barium Swallow w/Air (04/14/2024 9:30 AM EST) Anatomical Region Laterality Modality Head, Neck Radiographic Bailee ging 04/14/2024 9:30 AM EST Narrative 04/15/2024 5:45 PM EST ? [facility] ?[address] ?[place] [address] ? Fluoroscopy Report ? Signed ? Patient: Elatifi,Soukaina ?MR#: [id number] ?? [id number] ? : 2000 ?Acct:[id number] ? Age/Sex: 24 / F ?ADM Date: 04/14/24 ? Loc: HO.XRAY ? Attending Dr: Gina Nicole MD ? Ordering Physician: Gina Nicole MD ?? Date of Service: 04/14/24 ?? Procedure(s): FL barium swallow with air ?? Accession Number(s): [id number] ? cc: Andrea Hayes MD; Gina Nicole [...] DD/ 0930 ? TD/TT: 04/14/24 0930 ? Private Watchman: ? Procedure Note Donkiinterpreter, Image - 04/15/[address] [address] Fluoroscopy Report Signed Patient: Allyn Silva#: [id number] : 2000Acct:[id number] Age/Sex: 24 / FADM Date: 04/14/24 [facility] Dr: Gina Nicole MD Ordering Physician: Gina Nicole MD Date of Service: 04/14/24 Procedure(s): FL barium swallow with air Accession Number(s): [id number] cc: Andrea Hayes MD; Gina Nicole MD [...] by: Naun Ramos MD 04/15/2024 05:43 PM [facility] Dictated By: Jeramie Lepe Signed By: <Electronically signed by Jeramie Lepe in OV> 04/15/241742 <Electronically signed by Naun Ramos MD in OV> 04/15/241744 DD/ 9 TD/TT: 04/14/24929 Private Watchman: [facility] External Provider IMG FLU OROSCOPY PROCEDURES Final Result * Hepatitis C Ab (01/27/2024 10:13 AM EDT) Hepatitis C Antibody Nonreactive Nonreactive [facility] Comment:Antibodies to HCV no t detected; does not exclude early acuteHCV infection. 01/27/2024 10:1 3 AM EDT 01/27/2024 10:13 AM EDT Generic External Data Provider LAB BLOOD ORDERAB LES Final Result [facility] [address] [place] [phone] * HIV-1/2 Antigen and Antibodies, Fourth Generation, with Reflexes (01/27/2024 10:13 AM EDT) HIV AB/AG Nonreactive Nonreactive [facility] Comment:HIV-1 p24 Ag and/or HIV-1/HIV-2 Ab not detected.A test result that is nonreactive does not exclude thepossibility of exposure to or infection with HIV-1 and/orHIV-2. Nonreactive results in this assay for individualswith prior exposure to HIV-1 and/or HIV-2 may be due toantigen and antibody levels that are below the limit ofdetection of this assay.The dooub Alinity HIV Ag/Ab Combo assay result andsupplemental assay results should be interpreted inconjunction with the patient's clinical presentation,history and other laboratory results. If the results areinconsistent with clinical evidence, additional testing issuggested to confirm the result. 01/27/2024 10:1 3 AM EDT 01/27/2024 10:13 AM EDT us Generic External Data Provider LAB BLOOD ORDERAB LES Final Result [facility] [address] [place] [phone] * Pap Smear (06/25/2022) Pap Negative for intraephithelial lesion or malignancy Negative for intraephithelial lesion or malignancy, Other Historical Provider HEALTH MAINTENANCE Final Result from Last 3 Months or Most Recently Relevant to Health Maintenance Insurance [facility] C[place] [id number] [place] [id number] Care Teams Community Services Manager Relationship Specialty Start Date End Date Andrea Hayes MD [address] [place] [phone] PCP - General Family Medicine 01/25/22 andrea Hayes Alterations ManagerOil Program Compliance Specialist 07/11/23 Bryan Vyas Alterations ManagerOil Program Compliance Specialist 11/05/23
--- OUTSIDE RECORDS SUMMARY | 2024-07-12 15:44 | XMS_ITS | Encounter Summary ---
Author Organization [employer] Address [address] [facility] 7t [place] [address] Care Team Providers Care Civil Draftsman Name Role Phone Marielle Hayes MD Primary Care Provider [phone] Encounter Details Date Type Department Care Team ([facility] st Contact Info) Description 02/11/2024 Orders Only [facility] & PED[facility] [address] [place] [address] Marielle Hayes MD [address] [place] [address] Iron deficiency anemia, unspecified iron deficiency anemia [...] 08/18/2024 10:00 AM EDT Office Visit [facility] [address] [place] [address] Celso Gil Scheduled Orders Name Type Priority [...] EDT Narrative 04/22/2024 2:45 PM EST ? [facility] ?[address] ?[place] [address] ? Ultrasound Report ? Signed ? Patient: Elatifi,Soukaina ?MR#: [id number] ?? [id number] ? : 2000 ?Acct:[id number] ? Age/Sex: 23 / F ?ADM Date: 11/01/24 ? Loc: HO.US ? Attending Dr: Gina Nicole MD ? Ordering Physician: Gina Nicole MD ?? Date of Service: 03/06/24 ?? Procedure(s): US abdomen complete ?? Accession Number(s): [id number] ? cc: Marielle Hayes MD; Gina Nicole [...] ? DD/ ? TD/TT: 03/06/24 0946 ? Classification Counselor: ? Procedure Note Donotuseinterpreter, Image - 04/22/[address] [address] Ultrasound Report Signed Patient: David SilvaMR#: [id number] : 2000Acct:[id number] Age/Sex: 23 / FADM Date: 03/06/24 Loc: HO.US Attending Dr: Gina Nicole MD Ordering Physician: Gina Nicole MD Date of Service: 03/06/24 Procedure(s): US abdomen complete Accession Number(s): [id number] cc: Marielle Hayes MD; Gina Nicole MD [...] OV> 04/22/24 1443 DD/ 1 TD/TT: 03/06/24945 Classification Counselor: [facility] External Provider IMG US PROCEDURES Edited Result - Final documented in this encounter Visit Diagnoses Diagnosis Iron deficiency anemia, unspecified iron deficiency anemia type- Primary documented in this encounter Additional Health Concerns Assessment Noted Time PHQ-9 Depression Total Score: 0 02/10/20 9:50 AM EDT documented as of this encounter Care Teams Civil Draftsman Relationship Specialty Start Date End Date Marielle Hayes MD [address] [place] [address] PCP - General Family Medicine 01/25/22 marielle Hayes Drilling Field OperatorGarageman 07/11/23 Bryan Vyas Drilling Field OperatorGarageman 11/05/23 documented as of this encounter
--- OUTSIDE RECORDS SUMMARY | 2024-07-12 15:44 | XMS_ITS | Encounter Summary ---
Author Organization [employer] Address [address] [facility] [address] [place] [address] Care Team Providers Care Water Treatment Technician Name Role Phone Marielle Hayes MD Primary Care Provider [phone] Encounter Details Date Type Department Care Team ([facility] st Contact Info) Description 07/08/2024 9:40 AM EST Office Visit [facility] [address] [place] [phone] Margot Alexandra MD [address] [place] [address] Dizziness; UTI symptoms Social History Tobacco Use [...] 10:00 AM EDT Office Visit [facility] [address] [place] [address] Celso Gil documented as of this encounter [...] EST 07/08/2024 5:29 PM EST Comment:UACC Narrative [facility] - 07/10/2024 12:17 PM EST Urine Culture Report Result Urine Culture 50,000 to 100,000 cfu/ml Urine Culture Mixed bacterial migdalia characteristic of Urine Culture urogenital contamination. Specimen Source: Urine clean catch Margot Marquez MD LAB MICROBIOLOGY - GE NERAL ORDERABLES Final Result [facility] [address] [place] [phone] * POCT HGB A1C (07/08/2024 10:06 AM [...] specimen / Unknown 07/08/2024 10:04 AM EST Margot Marquez MD POINT OF CARE TEST EN TER/EDIT ORDERABLES Final Result documented in this encounter Visit Diagnoses Diagnosis Dizziness Dizziness and giddiness UTI symptoms documented in this encounter Additional Health Concerns Assessment Noted Time PHQ-9 Depression Total Score: 0 02/10/20 24 9:50 AM EDT documented as of this encounter Care Teams Water Treatment Technician Relationship Specialty Start Date End Date Marielle Hayes MD [address] [place] [address] PCP - General Family Medicine 01/25/22 marielle Hayes Contribution SolicitorTile Molder 07/11/23 Bryan Vyas Contribution SolicitorTile Molder 11/05/23 documented as of this encounter
--- OUTSIDE RECORDS SUMMARY | 2024-07-12 15:44 | XMS_ITS | Encounter Summary ---
Author Organization [employer] Address [address] [facility] [address] [place] [address] Care Team Providers Care Headlight Adjuster Name Role Phone Marielle Hayes MD Primary Care Provider [phone] Encounter Details Date Type Department Care Team ([facility] st Contact Info) Description 11/26/2023 Orders Only [facility] CH[facility] MED & PEDS [address] [place] [address] Bora Gil MD [address] [place] [address] Social History Tobacco Use Types Packs/Day Years Used Date Smoking Tobacco: Never Passive Smoke Exposure: Never Smokeless Tobacco: Never Housing Stability Answer Date Recorded What is your housing situation today? I have adithya sing 02/18/[address] you li [...] Description 08/18/2024 10:00 AM EDT Office Visit [facility] ADULT DENTAL [address] [place] [address] Celso Gil documented as of this encounter Procedures Procedure Name Priority Date/Time Associated Diagnosis Comments XR LUMBAR SPINE 2-3 VIEWS Routine 12/17/2023 7:05 PM EDT documented in this encounter Results * XR Lumbar Spine 2-3 Views (12/17/2023 7:05 PM EDT) Anatomical Region Laterality Modality Spine, L-spine Radiographic Bailee ging 12/17/2023 7:05 PM EDT Narrative 12/17/2023 8:08 PM EDT ? [facility] ?[address] ?[place] [address] ?XRay Report ? Signed ? Patient: Elatifi,Soukaina ?MR#: [id number] ?? [id number] ? : 2000 ?Acct:[id number] ? Age/Sex: 23 / F ?ADM Date: 12/17/23 ? Loc: HO.ED ? Attending Dr: ? Ordering Physician: Stephanie Hopkins ?? Date of Service: 12/17/23 ?? Procedure(s): XR lumbar spine 2-3V ?? Accession Number(s): [id number] ? cc: Stephanie Hopkins; Marielle Hayes MD [...] 12/17/23 2005 ? DD/ ? TD/TT: ? Tuck Pointer Helper: ? Procedure Note Gem, Image - 12/17/[address] [address] XRay Report Signed Patient: David SilvaMR#: [id number] : 2000Acct:[id number] Age/Sex: 23 / FADM Date: 12/17/23 Loc: HO.ED Attending Dr: Ordering Physician: Stephanie Hopkins Date of Service: 12/17/23 Procedure(s): XR lumbar spine 2-3V Accession Number(s): [id number] cc: Stephanie Hopkins; Marielle Hayes MD EXAMINATION: [...] Borrero in OV> 12/17/232004 DD/ 04 TD/TT: Tuck Pointer Helper: [facility] External Provider IMG XR PROCEDURES Edited Result - Final documented in this encounter Visit Diagnoses Not on filedocumented in this encounter Care Teams Headlight Adjuster Relationship Specialty Start Date End Date Marielle Hayes MD [address] [place] [address] PCP - General Family Medicine 01/25/22 marielle Hayes Sterilizer OperatorLabel Drier 07/11/23 Bryan Vyas Sterilizer OperatorLabel Drier 11/05/23 documented as of this encounter
--- OUTSIDE RECORDS SUMMARY | 2024-07-12 15:44 | XMS_ITS | Encounter Summary ---
Author Organization [employer] Address [address] [facility] [address] [place] [address] Care Team Providers Care Head Host/Hostess Name Role Phone Marielle Hayes MD Primary Care Provider [phone] Reason for Visit * Reason Onset Date Comments Nurse Triage 12/13/2023 Encounter Details Date Type Department Care Team (Late st Contact Info) Description 12/13/2023 Telephone [facility] MEDICINE [address] [place] [address] Marielle Hayes MD [address] [place], [place] [phone] Nurse Triage Social History Tobacco Use Types [...] 10:00 AM EDT Office Visit [facility] AD[facility]AL [address] [place] [address] Celso Gil documented as of this encounter Visit Diagnoses Not on filedocumented in this encounter Care Teams Head Host/Hostess Relationship Specialty Start Date End Date Marielle Hayes MD [address] [place] [phone] PCP - General Family Medicine 01/25/22 marielle Hayes OptometristCompliance Clerk 07/11/23 Bryan Vyas OptometristCompliance Clerk 11/05/23 documented as of this encounter
--- OUTSIDE RECORDS SUMMARY | 2024-07-12 15:44 | XMS_ITS | Encounter Summary ---
Author Organization [employer] Address [address] [facility] 7t [place] [address] Care Team Providers Care Sales Representative Womens Health Name Role Phone Marielle Hayes MD Primary Care Provider [phone] Reason for Visit * Reason Onset Date Comments ER Follow-up 12/18/2023 Encounter Details Date Type Department Care Team (Late st Contact Info) Description 12/18/2023 Telephone [facility] MEDICINE [address] [place] [address] Marielle Hayes MD [address] [place], [place] [phone] ER Follow-up Social History Tobacco Use Types [...] t he electric, gas, oil or water [employer] threatened to shut off services in your [...] weakness and Pt fell down. Ptwent to [facility] via ambulance but, because it was so full Pt then went to [facility] 12/17/23 .Pt did have xrays done and was told the pain was due to sciatica and there was a curvature in the spine. [facility] information is not on the chart but, [...] Reason: Other Override Notes: Pt seen in [facility] Ed Video visit not offered Positive Triage [...] 1:52 PM EDT Tc from Alondra at [facility] stating pt is still in severe pain and is requesting to speak to a nurse or be seen. Alondra stated pt is unable to take medication prescribed at [facility] due to breast feeding. Advised will forward to triage nurse. Contact pt at [phone] * Telephone Encounter - Nirav Corrales - 12/18/2023 8:31 AM EDT Patient calling to report ED visit on : Date: 12/16 Hospital: [facility] Seen for: Back Pain Patient advised will forward to team nurse for follow up documented in this encounter Plan of Treatment Upcoming Encounters Date Type Department Care Team (Late st Contact Info) Description 08/18/2024 10:00 AM EDT Office Visit [facility] ADULT DENTAL [address] [place] [address] Celso Gil documented as of this encounter Visit Diagnoses Not on filedocumented in this encounter Care Teams Sales Representative Womens Health Relationship Specialty Start Date End Date Marielle Hayes MD [address] [place] [phone] PCP - General Family Medicine 01/25/22 marielle Hayes Terrazzo MechanicFruit And Vegetable Packer 07/11/23 Bryan Vyas Terrazzo MechanicFruit And Vegetable Packer 11/05/23 documented as of this encounter
[2024-07-12 15:49] LABS: MANUAL DIFF FLAG NO
[2024-07-12 15:51] LABS: Basophils Percent Auto 0.8 % (0-2); Eosinophils Absolute Auto 0.1 X10*3/uL (0.0-0.4); Eosinophils Percent Auto 2.4 % (0-4); Hemoglobin 11.4 g/dl (12.0-16.0); Imm Gran Abs Auto 0.01 X10*3/uL (0.00-0.03); Imm Gran Pct Auto 0.2 % (0.0-0.4); Lymphocytes Absolute Auto 1.9 X10*3/uL (1.2-4.9); Lymphocytes Percent Auto 38.2 % (20-40); Mean Corpuscular HGB Conc 31.7 g/dl (31.0-35.0); Mean Corpuscular Hemoglobin 23.7 pg (27.0-33.0); Mean Corpuscular Volume 74.8 fL (80.0-98.0); Mean Platelet Volume 9.6 fL (9.4-12.3); Monocytes Absolute Auto 0.6 X10*3/uL (0.1-1.2); Monocytes Percent Auto 11.4 % (2-11); Neutrophils Absolute Auto 2.3 x10*3/uL (2.0-8.3); Platelet Count 383 X10*3/uL (160-400); Red Blood Count 4.81 X10*6/uL (4.20-5.50); Red Cell Distribution Width 16.8 % (11.0-16.0)
[2024-07-12 15:54] LABS: Appearance Urine Clear; Color Urine Yellow; Glucose Urine UA Negative (Negative); Leukocyte Esterase Urine Negative (Negative); Nitrite Urine Negative (Negative); Specific Gravity - Urine 1.025 (1.005-1.025); UPreg QC Valid YES; Urine Blood Negative (Negative); Urine Ketones 15 mg/dL (Negative); Urine Pregnancy NEGATIVE (NEGATIVE); Urine Protein Trace mg/dL (Neg-Trace)
[2024-07-12 15:56] LABS: INTERNATIONAL NORM RATIO 1.1 (0.9-1.1); Prothrombin Time 12.6 SEC (10.9-12.4)
[2024-07-12 15:58] LABS: Partial Thromboplastin Time 31.8 SEC (26.0-36.8)
[2024-07-12 16:18] LABS: Alanine Aminotransferase 14 U/L (0-31); Alkaline Phosphatase 101 U/L (39-117); Anion Gap 11 (12-20); Aspartate Amino Transferase 17 U/L (5-31); Bilirubin Total 0.3 mg/dL (0.0-1.0); Blood Urea Nitrogen 11 mg/dL (9-16); Calcium 8.8 mg/dL (8.4-10.2); Carbon Dioxide 23 mmol/L (22-29); Chloride 112 mmol/L (96-108); Creatinine Clr Calc Pharmacy 151.4; Estimated Glomerular Filt Rate > 60; Glucose Random 94 mg/dL (60-115); HCG Quantitative < 2 mIU/mL; Sodium 142 mmol/L (135-145); Total Protein 7.5 g/dL (6.5-8.0)
== END 2024-07-12 20:47 | disposition left against medical advice (07) ==
PROVIDERS: Physician Assistant; Emergency Provider Emergency Medicine; PCP Family Medicine
DX: R10.9 Unspecified abdominal pain (principal); Z79.899 Other long term (current) drug therapy
CPT/HCPCS: 36415; 80053; 81003; 81025; 84702; 85025; 85610; 85730; 86900; 86901; 99282; 99283

== ENCOUNTER 2024-08-06 07:31 | Day surgery (SDC) | payer MEDICAID, SELFPAY ==
[2024-08-04 10:41] VITALS: BMI 33.4
--- NOTE | 2024-08-05 08:27 | P.CONAN_ITS ---
Documented by User: Kayla Trujillo NP 08/05/24 08:27 HPI - Anesthesia Eval Consult details Narrative: 24yo F for Upper Endoscopy [facility] Active Problems Active Problems: All Active Problems Iron deficiency anemia (Acute) Anemia (Acute) Nausea & vomiting (Acute) Epigastric pain (Acute) COVID-19 (Acute) Past Medical History Medical History (Updated 08/06/24 @ 08:21 by Sujatha Murray, RN) Anemia Social History Social History Household Members: Spouse and Family Alcohol intake: never Patient Tobacco Use Status: Never used Tobacco Use of substances other than those prescribed or required for medical reasons: No Are you DNR?: No Advance Directives: No Advance Directives Information Provided: Yes Meds Allergies Allergy/AdvReac Type Severity Reaction Status Date / Time No Known Allergies Allergy Verified 08/06/24 08:23 Home Medications ?Medication ?Instructions ?Recorded ?Confirmed ?Last Taken ?Type ferrous gluconate 324 mg (38 mg 324 mg PO DAILY 08/06/24 08/06/24 Unknown History iron) tablet Exam Height,Weight and Vital Signs: Height 5 ft 6 in Weight 93.894 kg Assessment and Plan Assessment Anesthesia Assessment: Chart Reviewed Documented by User: Tara Bear MD 08/06/24 09:12 [facility] Past Medical History Medical History (Updated 08/06/24 @ 08:21 by Sujatha Murray, DWAYNE) Anemia Family History Family history of problems with anesthesia: No Surgical History History of Problems with Anesthesia: No Social History Social History Household Members: Spouse and Family Alcohol intake: never Patient Tobacco Use Status: Never used Tobacco Use of substances other than those prescribed or required for medical reasons: No Are you DNR?: No Advance Directives: No Advance Directives Information Provided: Yes Meds Allergies Allergy/AdvReac Type Severity Reaction Status Date / Time No Known Allergies Allergy Verified 08/06/24 08:23 Home Medications ?Medication ?Instructions ?Recorded ?Confirmed ?Last Taken ?Type ferrous gluconate 324 mg (38 mg 324 mg PO DAILY 08/06/24 08/06/24 Unknown History iron) tablet Exam Airway Mallampati Class: II TM Dist: >3cm Neck ROM: Full Assessment and Plan Assessment Anesthesia Assessment: Anesthesia Plan Discussed Final Anesthetic Review Family History of Problems with Anesthesia: No History of Problems with Anesthesia: No NPO: Yes ASA Class: II Final Preanesthetic Review: No Changes in Pt Med Stat, Meds/Allgs Chart Reviewed, Consent Obtained/Reviewed and Anes Risks/Benef Reviewed Patient Risk: Low Procedure Risk: Low Anesthetic Plan Anesthetic Plan: TIVA Disposition: Standard PACU
[2024-08-06 08:23] LABS: UPreg QC Valid YES; Urine Pregnancy NEGATIVE (NEGATIVE)
[2024-08-06 08:24] VITALS: BP 110/63; PULSE 72; RESP 15; TEMP 36.6; O2SAT 97; BMI 33.4
[2024-08-06] MEDS: Lactated Ringers 1,000 ML 100 ML IVCONT (08:35)
--- NOTE | 2024-08-06 09:18 | MHC.SHP ---
Pre-Procedural Eval Section A - 24 Hr Update-Section A only Date of Service: 08/06/24 Section B - Complete if H&P > 30 days Chief Complaint: Unspecified abdominal pain,nausea and vomiting Present Medications: see Short Stay Collaborative assessment Medical History: No relevant PMH History of Previous Operations: No relevant previous surgery Allergies: Allergies Allergy/AdvReac Type Severity Reaction Status Date / Time No Known Allergies Allergy Verified 08/06/24 08:23 Review of Systems Review of Systems Comment: Ten point ROS negative Exam Exam Comment: Gen appear: No acute distress HEENT: no icterus Chest: No overt resp distress Abd: soft, nontender, nondistended Psych: Stable affect, answering questions appropriately Neuro: A/Ox3 noted to move all extremities spontaneously Ext: no peripheral edema Plan Diagnosis/Plan: Unchanged I have reviewed the history and physical and performed a pertinent physical examination on my patient. No changes have occurred unless specified. Time Spent With Patient Time: Total time managing care of this patient today ____ minutes.
--- NOTE | 2024-08-06 09:44 | P.OP_ITS ---
Operative Note Operative Note Date of Service: 08/06/24 Narrative: Procedure: Esophagogastroduodenoscopy Endoscopist: Gina Nicole MD Indication: Gastritis Anesthesia Provider: Faustina Cloud MD Anesthesia Type: MAC ?? EGD Procedure:?? The procedure, indications, preparation and potential complications were reviewed with the patient, who indicated understanding and gave written informed consent to proceed. A physical exam was performed. The endoscope was introduced through the mouth, and advanced to the second part of duodenum. The mucosa was carefully examined on slow withdrawal of the endoscope. The patient tolerated the procedure well. There were no immediate complications.? ? EGD Findings:? * Esophagus:? Small erosions measuring < 5 mm noted at the GE junction. The Z line was at 40 cm. Middle and lower esophagus forceps biopsies were obtained to rule out eosinophilic esophagitis. * Stomach:? Normal mucosa was noted in the stomach. Retroflexion was performed in the cardia. Random cold forceps biopsies were taken to rule out H Pylori infection. * Duodenum:? Normal mucosa was noted in the whole of the examined duodenum. Cold forceps biopsies were taken from duodenal bulb and second portion of the duodenum to rule out celiac sprue. ? EGD Impressions:? * Grade A esophagitis (biopsy) * Normal stomach (biopsy) * Normal duodenum (biopsy) ?? Recommendations:?? * Follow biopsy results. Our office will call or send a letter with results within 7-10 days. * Increase omeprazole 20 mg to twice a day for at least 8-12 weeks and then once daily. * If H pylori +, patient will be prescribed eradication therapy followed by test of cure. * Avoid NSAIDs. Above has been reviewed with the patient.
[2024-08-06 09:49] VITALS: BP 102/61; PULSE 84; RESP 14; TEMP 36.4; O2SAT 97
[2024-08-06 09:59] VITALS: BP 102/59; PULSE 85; RESP 14; O2SAT 100
[2024-08-06 10:04] VITALS: BP 112/65; PULSE 85; RESP 14; O2SAT 100
[2024-08-06 10:12] VITALS: BP 126/85; PULSE 84; RESP 14; TEMP 36.3; O2SAT 100
== END 2024-08-06 10:36 | disposition home or self-care (01) ==
PROVIDERS: Nurse Practitioner; PCP Family Medicine; Visit Provider Internal Medicine
PROC: 0DJ08ZZ Inspection of Upper Intestinal Tract, Via Natural or Artificial Opening Endoscopic (ICD-10-PCS; CPT 43235; principal; 2024-08-06 09:50)
DX: R10.13 Epigastric pain (principal); R11.2 Nausea with vomiting, unspecified; K29.50 Unspecified chronic gastritis without bleeding; K20.80 Other esophagitis without bleeding; D64.9 Anemia, unspecified; Z79.899 Other long term (current) drug therapy
CPT/HCPCS: 43239; 81025; 88305; 88313; 88342; J2003; J2250; J2704

== ENCOUNTER → 2024-08-06 07:31 | Outpatient (BNV) | payer MEDICAID, SELFPAY | PROVIDERS: PCP Family Medicine; Visit Provider Internal Medicine | DX: K29.70 Gastritis, unspecified, without bleeding (principal); K20.90 Esophagitis, unspecified without bleeding | CPT/HCPCS: 43239 ==

== ENCOUNTER 2024-08-26 10:42 | Outpatient (REF) | payer MEDICAID, SELFPAY ==
[2024-08-26 11:55] LABS: Hematocrit 37.9 % (37.0-47.0); Hemoglobin 11.9 g/dl (12.0-16.0); Mean Corpuscular HGB Conc 31.4 g/dl (31.0-35.0); Mean Corpuscular Hemoglobin 23.4 pg (27.0-33.0); Mean Corpuscular Volume 74.6 fL (80.0-98.0); Mean Platelet Volume 9.7 fL (9.4-12.3); Platelet Count 400 X10*3/uL (160-400); Red Blood Count 5.08 X10*6/uL (4.20-5.50); Red Cell Distribution Width 16.9 % (11.0-16.0); White Blood Count 5.3 X10*3/uL (4.8-10.8)
[2024-08-26 12:30] LABS: Iron 200 mcg/dL (30-160); Percent Iron Saturation 60 % (15-50); Total Iron Binding Capacity 332 mcg/dL (228-428); Unsaturated Iron Binding 132 ug/dL
[2024-08-26 12:49] LABS: Ferritin 11 ng/mL (10-122); Vitamin D 25-OH Total 15.9 ng/mL (>30)
[2024-08-26 12:57] LABS: Folate 11.3 ng/mL (> or = 4.0); Vitamin B12 391 pg/mL (200-900)
--- OUTSIDE RECORDS SUMMARY | 2024-08-26 13:48 | XMS_ITS | Encounter Summary ---
Author Organization [employer] Address [address] [facility] 7t [place] [address] Care Team Providers Care Drywall Taper Name Role Phone Andrea Hayes MD Primary Care Provider [phone] Encounter Details Date Type Department Care Team ([facility] st Contact Info) Description 08/26/2024 Orders Only [...] Description 09/03/2024 9:00 AM EDT Office Visit [facility] ADULT DENTAL [address] [place] [address] Jacqueline Irwinanpreet [address] [place] [address] documented as of this encounter Procedures Procedure Name Priority Date/Time Associated Diagnosis Comments VITAMIN D,25-OH,TOTAL,IA Routine 08/26/2024 11:32 AM EDT VITAMIN B12/FOLATE, SERUM PANEL Routine 08/26/2024 11:32 AM EDT IRON AND TOTAL IRON BINDING CAPACITY Routine 08/26/2024 11:32 AM EDT CBC Routine 08/26/2024 11:32 AM EDT FERRITIN Routine 08/26/2024 11:32 AM EDT documented in this encounter Results * Vitamin B12 (Cobalamin) and Folate Panel, Serum (08/26/2024 11:32 AM EDT) Vitamin B12 391 200 - 900 pg/mL [facility] Comment:NORMAL 200-900 PG/M L INDETERMINATE 160-199 PG/ML DEFICIENT < 160 PG/ML Folate 11.3 > or = 4.0 ng/mL [facility] Comment:Reference Values:> o r = 4.0 ng/mL< 4.0 ng/mL suggests folate deficiency Methotrexate, aminopterin and folinic acid(leucovorin) are chemotherapeutic agents whose molecularstructures are similar to folate; therefore, the Architectfolate assay cannot be used for patients using these drugs. 08/26/2024 11:3 2 AM EDT 08/26/2024 11:32 AM EDT us Generic External Data Provider LAB BLOOD ORDERAB LES Final Result [facility] [address] [place] [address] [phone] * (ABNORMAL) Vitamin D, 25-Hydroxy, Total, Immunoassay (08/26/2024 11:32 AM EDT) Vitamin D 25-OH Total 15.9(L) >30 ng/mL [facility] Comment: Health Based Reference Values*< 20 ??ng/mL ??[id number] ng/mL ??Insufficient> 30 ??ng/mL ??Sufficient*Quintin AMBROSE. N Engl J Med. 2007;357:266-280There is no well-established upper level of normal vitamin Dlevels. Some laboratories use 50 ng/mL as an upper limit ofnormal. However, toxicity is patient-dependent and may occurat any level. Careful correlation with the patient'spresentation is necessary and, if there is concern forvitamin D toxicity, treatment should be consideredirrespective of the serum level.Care must be taken in interpreting Vitamin D results fromdifferent laboratories and methodologies. ??Published datademonstrated that results from patients undergoinghemodialysis may show a negative bias when tested withvarious automated 25-OH vitamin D assays when compared toLC- MS/MS.When testing samples from patients whose predominant form ofVitamin D is Vitamin D2, such as patients receiving VitaminD2 supplementation, results that are subtherapeutic shouldbe confirmed with another method such as LC-MS/MS. 08/26/2024 11:3 2 AM EDT 08/26/2024 11:32 AM EDT Generic External Data Provider LAB BLOOD ORDERAB LES Final Result Performing Organization Address [facility] Co de Phone Number [facility] [address] [place] [phone] * Ferritin (08/26/2024 11:32 AM EDT) Ferritin 11 10 - 122 ng/mL [facility] 08/26/2024 11:3 2 AM EDT 08/26/2024 11:32 AM EDT Generic External Data Provider LAB BLOOD ORDERAB LES Final Result Performing Organization Address [facility] Phone Number [facility] [address] [place] [phone] * (ABNORMAL) Iron And Total Iron Binding Capacity (08/26/2024 11:32 AM EDT) Iron 200(H) 30 - 160 mcg/dL [facility] Total Iron Binding Capacity 332 228 - 428 mcg/dL [facility] Percent Iron Saturation 60(H) 15 - 50 % [facility] Unsaturated Iron Binding 132 ug/dL [facility] 08/26/2024 11:3 2 AM EDT 08/26/2024 11:32 AM EDT Generic External Data Provider LAB BLOOD ORDERAB LES Final Result Performing Organization Address [facility] Co de Phone Number [facility] [address] [place] [phone] * (ABNORMAL) CBC (08/26/2024 11:32 AM EDT) White Blood Count 5.3 4.8 - 10.8 X10*3/uL [facility] Red Blood Count 5.08 4.20 - 5.50 X10*6/uL [facility] Hemoglobin 11.9(L) 12.0 - 16.0 g/dl [facility] Hematocrit 37.9 37.0 - 47.0 % [facility] Mean Corpuscular Volume 74.6(L) 80.0 - 98.0 fL [facility] Mean Corpuscular Hemoglobin 23.4(L) 27.0 - 33.0 pg [facility] Mean Corpuscular HGB Conc 31.4 31.0 - 35.0 g/dl [facility] Red Cell Distribution Width 16.9(H) 11.0 - 16.0 % [facility] Platelet Count 400 160 - 400 X10*3/uL [facility] Mean Platelet Volume 9.7 9.4 - 12.3 fL [facility] NRBC Pct Auto 0.0 0.0 - 0.2 /100WBC [facility] NRBC Abs Auto 0.000 0.0 - 0.012 X10*3/uL [facility] 08/26/2024 11:3 2 AM EDT 08/26/2024 11:32 AM EDT us Generic External Data Provider LAB BLOOD ORDERAB LES Final Result [facility] [address] [place] [phone] documented in this encounter Visit Diagnoses Not on filedocumented in this encounter Additional Health Concerns Assessment Noted Time PHQ-9 Depression Total Score: 0 02/10/20 24 9:50 AM EDT documented as of this encounter Care Teams Drywall Taper Relationship Specialty Start Date End Date Andrea Hayes MD [address] [place] [phone] PCP - General Family Medicine 01/25/22 andrea Hayes Senior Finance ManagerRefined Syrup Operator 07/11/23 Bryan Vyas Senior Finance ManagerRefined Syrup Operator 11/05/23 documented as of this encounter
--- OUTSIDE RECORDS SUMMARY | 2024-08-26 13:48 | XMS_ITS | Clinical Summary ---
Author Organization [facility] ity Address [address] [place] [address] Care Team Providers Care Financial Service Professional Name Role Phone Unavailable Primary Care Provider [...]
--- OUTSIDE RECORDS SUMMARY | 2024-08-26 13:48 | XMS_ITS | Encounter Summary ---
Author Organization [employer] Address [address] [facility] 7t [place] [address] Care Team Providers Care Inhalation Therapist Name Role Phone Marielle Hayes MD Primary Care Provider [phone] Reason for Visit * Reason Onset Date Comments Nurse Triage 12/13/2023 Encounter Details Date Type Department Care Team (Late st Contact Info) Description 12/13/2023 Telephone [facility] MEDICINE [address] [place] [address] Marielle Hayes MD [address] [place], [place] [phone] Nurse Triage Social History Tobacco Use Types [...] Description 09/03/2024 9:00 AM EDT Office Visit [facility] ADULT DENTAL [address] [place], [place] [phone] Ajay Irwin [address] [place], [place] [phone] documented as of this encounter Visit Diagnoses Not on filedocumented in this encounter Care Teams Inhalation Therapist Relationship Specialty Start Date End Date Marielle Hayes MD [address] [place] [phone] PCP - General Family Medicine 01/25/22 marielle Hayes Porter Used Car LotEyeglass Assembler 07/11/23 Bryan Vyas Porter Used Car LotEyeglass Assembler 11/05/23 documented as of this encounter
--- OUTSIDE RECORDS SUMMARY | 2024-08-26 13:48 | XMS_ITS | Clinical Summary ---
Author Organization [employer] Address [address] [facility] [address] [place] [address] Care Team Providers Care Senior Project Leader/Team Lead Name Role Phone Andrea Hayes MD Primary Care Provider [phone] Allergies No known active allergies Medications simethicone [...] Data 08/18/2024 10:00 AM EDT Office Visit [facility] [address] [place] [address] Celso Gil Dental calculus (Primary Dx) 08/12/2024 5:40 PM EDT Office Visit [facility] [address] [place] [phone] Pain of both heels (Primary Dx) 08/06/2024 Orders Only GENERIC EXTERNAL DATA DEPARTMENT Provider, Generic External Data 07/17/2024 Population Health Risk Score Community [facility] (C3) Department [address] [place] [phone] Provider, Population Health Generic 07/12/2024 Orders Only GENERIC EXTERNAL DATA DEPARTMENT Provider, Generic External Data 07/08/2024 9:40 AM EST Office Visit [facility] [address] [place] [phone] Margot Alexandra MD Dizziness; UTI symptoms 06/06/2024 [...] Description 09/03/2024 9:00 AM EDT Office Visit [facility] [address] [place] [address] Oscar Irwinpreet [address] [place] [address] Health Maintenance Due Date Last Done Comments [...] Name Priority Date/Time Associated Diagnosis Comments VITAMIN B12/FOLATE, SERUM PANEL Routine 08/26/2024 11:32 AM EDT VITAMIN D,25-OH,TOTAL,IA Routine 08/26/2024 11:32 AM EDT FERRITIN Routine 08/26/2024 11:32 AM EDT IRON AND [...] Relevant to Health Maintenance Results * (ABNORMAL) Vitamin D, 25-Hydroxy, Total, Immunoassay (08/26/2024 11:32 AM EDT) [facility] Vitamin D 25-OH Total 15.9(L) >30 ng/mL [facility] Comment: Health Based Reference Values*< 20 ??ng/mL ??[id number] ng/mL ??Insufficient> 30 ??ng/mL ??Sufficient*Quintin AMBROSE. N [...] ORDERAB LES Final Result Performing Organization Address [facility]/ZIP Co de Phone Number [facility] [address] [place] [phone] * Vitamin B12 (Cobalamin) and Folate Panel, Serum (08/26/2024 11:32 AM EDT) Vitamin B12 391 200 - 900 pg/mL [facility] Comment:NORMAL 200-900 PG/ML INDETERMINATE 160-199 PG/ML DEFICIENT < 160 PG/ML Folate 11.3 > or = 4.0 ng/mL [facility] Comment:Reference Values:> o r = 4.0 ng/mL< 4.0 ng/mL suggests folate deficiency Methotrexate, aminopterin and folinic acid(leucovorin) are chemotherapeutic agents whose molecularstructures are similar to folate; therefore, the Architectfolate assay cannot be used for patients using these drugs. 08/26/2024 11:3 2 AM EDT 08/26/2024 11:32 AM EDT us Generic External Data Provider LAB BLOOD ORDERAB LES Final Result Performing Organization Address [facility] Co de Phone Number [facility] [address] [place] [phone] * (ABNORMAL) Iron And Total Iron Binding Capacity (08/26/2024 11:32 AM EDT) Iron 200(H) 30 - 160 mcg/dL [facility] Total Iron Binding Capacity 332 228 - 428 mcg/dL [facility] Percent Iron Saturation 60(H) 15 - 50 % [facility] Unsaturated Iron Binding 132 ug/dL [facility] 08/26/2024 11:3 2 AM EDT 08/26/2024 11:32 AM EDT us Generic External Data Provider LAB BLOOD ORDERAB LES Final Result [facility] [address] [place] [phone] [phone] * (ABNORMAL) CBC (08/26/2024 11:32 AM EDT) White Blood Count 5.3 4.8 - 10.8 X10*3/uL [facility] Red Blood Count 5.08 4.20 - 5.50 X10*6/uL [facility] Hemoglobin 11.9(L) 12.0 - 16.0 g/dl [facility] Hematocrit 37.9 37.0 - 47.0 % [facility] Mean Corpuscular Volume 74.6(L) 80.0 - 98.0 fL [facility] Mean Corpuscular Hemoglobin 23.4(L) 27.0 - 33.0 pg [facility] Mean Corpuscular HGB Conc 31.4 31.0 - 35.0 g/dl [facility] Red Cell Distribution Width 16.9(H) 11.0 - 16.0 % [facility] Platelet Count 400 160 - 400 X10*3/uL [facility] Mean Platelet Volume 9.7 9.4 - 12.3 fL [facility] NRBC Pct Auto 0.0 0.0 - 0.2 /100WBC [facility] NRBC Abs Auto 0.000 0.0 - 0.012 X10*3/uL [facility] 08/26/2024 11:3 2 AM EDT 08/26/2024 11:32 AM EDT us Generic External Data Provider LAB BLOOD ORDERAB LES Final Result [facility] [address] [place] [address] [phone] * Ferritin (08/26/2024 11:32 AM EDT) Pathologist [facility] Ferritin 11 10 - 122 ng/mL [facility] 08/26/2024 11:3 2 AM EDT 08/26/2024 11:32 AM EDT us Generic External Data Provider LAB BLOOD ORDERAB LES Final Result [facility] [address] [place] [address] [phone] * Hematoxylin and Eosin Stain (08/06/2024 9:41 AM EDT) 08/06/2024 9:41 AM EDT 08/06/2024 10:33 AM EDT Narrative [facility] - 08/10/2024 3:28 PM EDT ----- ------- Name: David Silva ? Age/Sex: 24/F ? : 2000 Unit#: [id number] ?? Attend Dr: Gina Nicole MD ?Re08/06/24 ?Status: DEP SDC ? Location: HO.SSS ?Disch: ? ----- ------- SPEC : [id number] ? RECD: 08/06/24-3 ? STATUS: ??SOUT ? REQ NUM: [id number] ? SUBHASH: 08/06/24-940 ? SUBM DR: Gina [...] ? Age/Sex: 24/F ? : 2000 Unit#: [id number] ?? Attend Dr: Gina Nicole MD ?Re08/06/24 ?Status: DEP [facility] ? Location: HO.SSS ?Disch: ? ----- ------- SPEC : [id number] ? RECD: 08/06/24-1033 ? STATUS: ??SOUT ? REQ NUM: [id number] ? SUBHASH: 08/06/24-0941 ? SUBM DR: Gina Nicole MD ? ENTERED: ??08/06/24-1038 ?SP TYPE: Surgical ? OTHR DR: Andrea Hayes MD ? ORDERED: ??HE Stain/12, Gross Micro L4/4, IHC, Special st. 2/2, H. pylori, AB/PAS/2 ? Gross Description ?(Continued) [...] ?? [address] ?? [place] [address] ?? [phone] ?? Gina Nicole MD ?? [facility] ?? [address] ?? [place] [address] ?? [phone] ?? [email or web address] ----- ------- Signed (signature on file) James Wallace MD 08/10/24 1528 ? ----- ------- ? END OF REPORT ? Generic External Data Provider LAB BLOOD ORDERAB LES Final Result Performing Organization Address [facility] Co de Phone Number [facility] [address] [place] [address] [phone] * HCG, Qualitative, Urine (08/06/2024 8:10 AM EDT) Only the most recent of3 resultswithin the time period is included. [facility] Urine NEGATIVE NEGATIVE [facility] Comment:This test was develo ped to detect early . Falsenegative results may occur after the 5th - 7th week ofpregnancy when using this test method. If clinicallyindicated, consider a serum hCG. 08/06/2024 8:10 AM EDT 08/06/2024 8:17 AM EDT Generic External Data Provider LAB URINE ORDERAB LES Final Result Performing Organization Address [facility] Co de Phone Number [facility] [address] [place] [address] [phone] * (ABNORMAL) CBC auto differential (07/12/2024 3:42 PM EDT) Only the most recent of2 resultswithin the time period is included. White Blood Count 5.0 4.8 - 10.8 X10*3/uL [facility] Red Blood Count 4.81 4.20 - 5.50 X10*6/uL [facility] Hemoglobin 11.4(L) 12.0 - 16.0 g/dl [facility] Hematocrit 36.0(L) 37.0 - 47.0 % [facility] Mean Corpuscular Volume 74.8(L) 80.0 - 98.0 fL [facility] Mean Corpuscular Hemoglobin 23.7(L) 27.0 - 33.0 pg [facility] Mean Corpuscular HGB Conc 31.7 31.0 - 35.0 g/dl [facility] Red Cell Distribution Width 16.8(H) 11.0 - 16.0 % [facility] Platelet Count 383 160 - 400 X10*3/uL [facility] Mean Platelet Volume 9.6 9.4 - 12.3 fL [facility] Neutrophils Percent Auto 47.0 45 - 73 % [facility] Imm Gran Pct Auto 0.2 0.0 - 0.4 % [facility] Lymphocytes Percent Auto 38.2 20 - 40 % [facility] Monocytes Percent Auto 11.4(H) 2 - 11 % [facility] Eosinophils Percent Auto 2.4 0 - 4 % [facility] Basophils Percent Auto 0.8 0 - 2 % [facility] NRBC Pct Auto 0.0 0.0 - 0.2 /100WBC [facility] Neutrophils Absolute Auto 2.3 2.0 - 8.3 x10*3/uL [facility] Imm Gran Abs Auto 0.01 0.00 - 0.03 X10*3/uL [facility] Lymphocytes Absolute Auto 1.9 1.2 - 4.9 X10*3/uL [facility] Monocytes Absolute Auto 0.6 0.1 - 1.2 X10*3/uL [facility] Eosinophils Absolute Auto 0.1 0.0 - 0.4 X10*3/uL [facility] Basophils Absolute Auto 0.0 0.0 - 0.2 X10*3/uL [facility] NRBC Abs Auto 0.000 0.0 - 0.012 X10*3/uL [facility] 07/12/2024 3:42 PM EDT 07/12/2024 3:47 PM EDT Generic External Data Provider LAB BLOOD ORDERAB LES Final Result Performing Organization Address [facility]/ZIP Co de Phone Number [facility] [address] [place] [phone] * ABO Group And RH Type (07/12/2024 3:42 PM EDT) Blood Type ABP [facility] Comment:RH IMMUNE GLOBULIN I NDICATED: NO 07/12/2024 3:42 PM EDT 07/12/2024 3:49 PM EDT Generic External Data Provider LAB BLOOD BANK TE ST ORDERABLES Final Result Performing Organization Address [facility] Co de Phone Number [facility] [address] [place] [phone] * Urinalysis w/reflex microscopic (07/12/2024 3:42 PM EDT) Color Urine Yellow [facility] Appearance Urine Clear [facility] PH 8.0 5.0 - 9.0 [facility] Glucose Urine UA Negative Negative mg/dL [facility] Urine Blood Negative Negative [facility] Specific [place] - Urine 1.025 1.005 - 1.025 [facility] Urine Protein Trace Neg-Trace mg/dL [facility] Urine Ketones 15 Negative mg/dL [facility] Nitrite Urine Negative Negative [facility] Leukocyte Esterase Urine Negative Negative [facility] 07/12/2024 3:42 PM EDT 07/12/2024 3:47 PM EDT Narrative [facility] - 07/12/2024 3:54 PM EDT [id number], Clean Catch Generic External Data Provider LAB URINE ORDERAB LES Final Result Performing Organization Address [facility]/ZIP Co de Phone Number [facility] [address] [place] [phone] * Partial Thromboplastin Time, Activated (APTT) (07/12/2024 3:42 PM EDT) Partial Thromboplastin Time 31.8 26.0 - 36.8 SEC [facility] Comment:For information rega rding the monitoring of direct thrombininhibitors, please refer to Pharmacy. 07/12/2024 3:42 PM EDT 07/12/2024 3:47 PM EDT Generic External Data Provider LAB BLOOD ORDERAB LES Final Result Performing Organization Address [facility] Co de Phone Number [facility] [address] [place] [phone] * (ABNORMAL) Prothrombin Time-INR (07/12/2024 3:42 PM EDT) Prothrombin Time 12.6(H) 10.9 - 12.4 SEC [facility] INTERNATIONAL NORM RATIO 1.1 0.9 - 1.1 [facility] Comment:INTERNATIONAL NORMAL IZED RATIO (INR) REFERENCE [...] ORDERAB LES Final Result Performing Organization Address City/[facility] Co de Phone Number [facility] [address] [place] [phone] * hCG, Total, Quantitative (07/12/2024 3:42 PM EDT) HCG Quantitative <2 mIU/mL [facility] Comment:Weeks post LMP Appro ximate hCG(Last Menstrual Period) Range (mIU/ml)3 - 4 weeks 9 - 1304 - 5 weeks 75 - 2,6005 - 6 weeks 850 - 20,8006 - 7 weeks 4000 - 100,2007 - 12 weeks 11,500 - 289,78759 - 16 weeks 18,300 - 137,97401 - 29 weeks (2nd trimester) 1,400 - 53,12406 - 41 weeks (3rd trimester) 940 - [...] ORDERAB LES Final Result Performing Organization Address City/[facility]/ZIP Co de Phone Number [facility] [address] [place] [phone] * (ABNORMAL) Comprehensive Metabolic Panel (07/12/2024 3:42 PM EDT) Pathologist [facility] Sodium 142 135 - 145 mmol/L [facility] Potassium 4.0 3.3 - 5.1 mmol/L [facility] Chloride 112(H) 96 - 108 mmol/L [facility] Carbon Dioxide 23 22 - 29 mmol/L [facility] Anion Gap 11(L) 12 - 20 [facility] Urea Nitrogen (BUN) 11 9 - 16 mg/dL [facility] Creatinine, Serum 0.66 0.5 - 1.4 mg/dL [facility] Creatinine Clr Calc Pharmacy 151.4 [facility] Comment:Provided height and weight: 167.64 cm,93.5 kg.eGFR (calculated from the MDRD study equation) and eCrCl(calculated from the Cockcroft-Gault equation) are based ondifferent parameters and may not yield comparable results.If eCrCl result is absurd, please check patient'sheight/weight. Estimated Glomerular Filt Rate >60 [facility] Comment:Chronic Kidney Disea se: Estimated GFR < 60 mL/min/1.75w2Ewxxga Kidney Disease: Estimated GFR < 15 mL/min/1.73m2 Glucose 94 60 - 115 mg/dL [facility] Calcium 8.8 8.4 - 10.2 mg/dL [facility] Bilirubin, Total 0.3 0.0 - 1.0 mg/dL [facility] Aspartate Amino Transferase 17 5 - 31 U/L [facility] Alanine Aminotransferase 14 0 - 31 U/L [facility] Total Protein 7.5 6.5 - 8.0 g/dL [facility] Albumin Level 4.0 3.5 - 5.0 g/dL [facility] Alkaline Phosphatase 101 39 - 117 U/L [facility] 07/12/2024 3:42 PM EDT 07/12/2024 3:47 PM EDT us Generic External Data Provider LAB BLOOD ORDERAB LES Final Result [facility] [address] [place], [place] [phone] * (ABNORMAL) POCT urinalysis dipstick manually [...] OK Urine 07/08/2024 10:3 4 AM EST Result [facility] Margot Marquez MD POINT OF CARE TEST EN TER/EDIT ORDERABLES Final Result * Culture, Urine, Routine (07/08/2024 10:33 AM EST) Urine Urine specimen obtained by clean catch procedure / Unknown 07/08/2024 10:33 AM EST 07/08/2024 5:29 PM EST Comment:UACC Narrative [facility] - 07/10/2024 12:17 PM EST Urine Culture Report Result Urine Culture 50,000 to 100,000 cfu/ml Urine Culture Mixed bacterial migdalia characteristic of Urine Culture urogenital contamination. Specimen Source: Urine clean catch Margot Marquez MD LAB MICROBIOLOGY - NERAL ORDERABLES Final Result [facility] [address] [place] [address] [phone] * POCT HGB A1C (07/08/2024 10:06 AM EST) Hemoglobin A1C 5.7 4.0 - 6.0 % QC Media Lot # [id number] Lot# Expiration Date Blood 07/08/2024 10:0 6 AM EST Result [facility] Margot Marquez MD POINT OF CARE [...] (06/06/2024 8:38 PM EST) Color Urine Yellow [facility] Appearance Urine Clear [facility] PH 6.5 5.0 - 9.0 [facility] Glucose Urine UA Negative Negative mg/dL [facility] Urine Blood Negative Negative [facility] Specific [place] - Urine 1.025 1.005 - 1.025 [facility] Urine Protein Negative Neg-Trace mg/dL [facility] Urine Ketones Trace Negative mg/dL [facility] Nitrite Urine Negative Negative [facility] Leukocyte Esterase Urine Trace(A) Negative [facility] RBC Urine 0-2 0 - 2 /HPF [facility] Urine WBC 0-5 0 - 5 /HPF [facility] Urine Squamous Epithelial Cell 3-5 0 - 2 /HPF [facility] Urine Bacteria None Seen None Seen [facility] Hyaline Casts, Urine 0-2 0 - 2 /LPF [facility] 06/06/2024 8:38 PM EST 06/06/2024 8:43 PM EST Narrative [facility] - 06/06/2024 9:00 PM EST Urine, Clean Catch us Generic External Data Provider LAB URINE ORDERAB LES Final Result [facility] [address] [place] [address] [phone] * Magnesium (06/06/2024 7:51 PM EST) Magnesium 1.9 1.6 - 2.6 mg/dL [facility] 06/06/2024 7:51 PM EST 06/06/2024 7:55 PM EST us Generic External Data Provider LAB BLOOD ORDERAB LES Final Result Performing Organization Address City/[facility]/ZIP Co de Phone Number [facility] [address] [place] [phone] * Lipase (06/06/2024 7:51 PM EST) Lipase 37 8 - 78 U/L [facility] 06/06/2024 7:51 PM EST 06/06/2024 7:55 PM EST Generic External Data Provider LAB BLOOD ORDERAB LES Final Result Performing Organization Address [facility] de Phone Number [facility] [address] [place] [phone] * Hepatic Function Panel (06/06/2024 7:51 PM EST) Bilirubin, Total 0.3 0.0 - 1.0 mg/dL [facility] Bilirubin, Direct 0.1 0.0 - 0.5 mg/dL [facility] Aspartate Amino Transferase 20 5 - 31 U/L [facility] Alanine Aminotransferase 18 0 - 31 U/L [facility] Total Protein 7.8 6.5 - 8.0 g/dL [facility] Albumin Level 4.2 3.5 - 5.0 g/dL [facility] Alkaline Phosphatase 100 39 - 117 U/L [facility] 06/06/2024 7:51 PM EST 06/06/2024 7:55 PM EST Generic External Data Provider LAB BLOOD ORDERAB LES Final Result Performing Organization Address [facility] Co de Phone Number [facility] [address] [place] [phone] * (ABNORMAL) Basic Metabolic Panel (06/06/2024 7:51 PM EST) Sodium 142 135 - 145 mmol/L [facility] Potassium 3.7 3.3 - 5.1 mmol/L [facility] Chloride 112(H) 96 - 108 mmol/L [facility] Carbon Dioxide 22 22 - 29 mmol/L [facility] Anion Gap 12 12 - 20 [facility] Urea Nitrogen (BUN) 10 9 - 16 mg/dL [facility] Creatinine, Serum 0.69 0.5 - 1.4 mg/dL [facility] Creatinine Clr Calc Pharmacy 146.0 [facility] Comment:Provided height and weight: 167.64 cm,95 kg.eGFR (calculated from the MDRD study equation) and eCrCl(calculated from the Cockcroft-Gault equation) are based ondifferent parameters and may not yield comparable results.If eCrCl result is absurd, please check patient'sheight/weight. Estimated Glomerular Filt Rate >60 [facility] Comment:Chronic Kidney Disea se: Estimated GFR < 60 mL/min/1.32i5Pxmgrc Kidney Disease: Estimated GFR < 15 mL/min/1.73m2 Glucose 98 60 - 115 mg/dL [facility] Calcium 8.8 8.4 - 10.2 mg/dL [facility] 06/06/2024 7:51 PM EST 06/06/2024 7:55 PM EST us Generic External Data Provider LAB BLOOD ORDERAB LES Final Result Performing Organization Address City/State/[facility] Co de Phone Number [facility] [address] [place] [address] [phone] * Hepatitis C Ab (01/27/2024 10:13 AM EDT) Hepatitis C Antibody Nonreactive Nonreactive [facility] Comment:Antibodies to HCV no t detected; does not exclude early acuteHCV infection. 01/27/2024 10:1 3 AM EDT 01/27/2024 10:13 AM EDT us Generic External Data Provider LAB BLOOD ORDERAB LES Final Result Performing Organization Address City/[facility] Co de Phone Number [facility] [address] [place] [phone] * HIV-1/2 Antigen and Antibodies, Fourth Generation, with Reflexes (01/27/2024 10:13 AM EDT) HIV AB/AG Nonreactive Nonreactive [facility] Comment:HIV-1 p24 Ag and/or HIV-1/HIV-2 Ab not detected.A test result that is nonreactive does not exclude thepossibility of exposure to or infection with HIV-1 and/orHIV-2. Nonreactive results in this assay for individualswith prior exposure to HIV-1 and/or HIV-2 may be due toantigen and antibody levels that are below the limit ofdetection of this assay.The [employer] HIV Ag/Ab Combo assay result andsupplemental assay results should be interpreted inconjunction with the patient's clinical presentation,history and other laboratory results. If the results areinconsistent with clinical evidence, additional testing issuggested to confirm the result. 01/27/2024 10:1 3 AM EDT 01/27/2024 10:13 AM EDT us Generic External Data Provider LAB BLOOD ORDERAB LES Final Result Performing Organization Address [facility] Co de Phone Number [facility] [address] [place] [phone] * Hm Pap Smear (06/25/2022) Pap Negative for intraephithelial lesion or malignancy Negative for intraephithelial lesion or malignancy, Other Historical Provider HEALTH MAINTENANCE Final Result from Last 3 Months or Most Recently Relevant to Health Maintenance Insurance [facility] C3 DENTAL-[facility] MEDICAID STAND ADULT Care Teams Senior Project Leader/Team Lead Relationship Specialty Start Date End Date Andrea Hayes MD [address] [place] [phone] PCP - General Family Medicine 01/25/22 andrea Hayes Top And Seat Cover FitterManager Inpatient 07/11/23 Bryan Vyas Top And Seat Cover FitterManager Inpatient 11/05/23
--- OUTSIDE RECORDS SUMMARY | 2024-08-26 13:48 | XMS_ITS | Encounter Summary ---
Author Organization [employer] Address [address] [facility] 7t [place] [address] Care Team Providers Care Trouble Dispatcher Name Role Phone Marielle Hayes MD Primary Care Provider [phone] Encounter Details Date Type Department Care Team ([facility] st Contact Info) Description 11/26/2023 Orders Only [facility] CHC MED & PEDS [address] [place] [address] Bora Gil MD [address] [place] [address] Social History Tobacco Use Types Packs/Day Years [...] Description 09/03/2024 9:00 AM EDT Office Visit [facility] ADULT DENTAL [address] [place] [address] Oscar Irwinprenorma [address] [place] [address] documented as of this encounter Procedures Procedure Name Priority Date/Time Associated Diagnosis Comments XR LUMBAR SPINE 2-3 VIEWS Routine 12/17/2023 7:05 PM EDT documented in this encounter Results * XR Lumbar Spine 2-3 Views (12/17/2023 7:05 PM EDT) Anatomical Region Laterality Modality Spine, L-spine Radiographic Bailee ging 12/17/2023 7:05 PM EDT Narrative 12/17/2023 8:08 PM EDT ? [facility] ?[address] ?[place] [address] ?XRay Report ? Signed ? Patient: Elatifi,Soukaina ?MR#: [id number] ?? [id number] ? : 2000 ?Acct:[id number] ? Age/Sex: 23 / F ?ADM Date: 12/17/23 ? Loc: HO.ED ? Attending Dr: ? Ordering Physician: Stephanie Hopkins ?? Date of Service: 12/17/23 ?? Procedure(s): XR lumbar spine 2-3V ?? Accession Number(s): [id number] ? cc: Stephanie Hopkins; Marielle Hayes MD [...] 12/17/232004 ? DD/ 04 ? TD/TT: ? Breakdown Man: ? Procedure Note Gem, Jimmie - 12/17/2023 [place] [address] XRay Report Signed Patient: David SilvaMR#: [id number] : 2000Acct:[id number] Age/Sex: 23 FADM Date: 12/17/23 Loc: .ED Attending Dr: Ordering Physician: Stephanie Hopkins Date of Service: 12/17/23 Procedure(s): XR lumbar spine 2-3V Accession Number(s): [id number] cc: Stephanie Hopkins; Marielle Hayes MD EXAMINATION: [...] Borrero in OV> 12/17/232004 DD/ 04 TD/TT: Breakdown Man: [facility] External Provider IMG XR PROCEDURES Edited Result - Final documented in this encounter Visit Diagnoses Not on filedocumented in this encounter Care Teams Trouble Dispatcher Relationship Specialty Start Date End Date Marielle Hayes MD [address] [place] [address] PCP - General Family Medicine 01/25/22 marielle Hayes Systems AdminBehavioral Health Worker 07/11/23 Bryan Vyas Systems AdminBehavioral Health Worker 11/05/23 documented as of this encounter
--- OUTSIDE RECORDS SUMMARY | 2024-08-26 13:48 | XMS_ITS | Encounter Summary ---
Author Organization [employer] Address 75 [facility] 7t [place] [address] Care Team Providers Care Pipe Finisher Name Role Phone Marielle Hayes MD Primary Care Provider [phone] Reason for Visit * Reason Onset Date Comments ER Follow-up 12/18/2023 Encounter Details Date Type Department Care Team (Late st Contact Info) Description 12/18/2023 Telephone [facility] MEDICINE [address] [place] [address] Marielle Hayes MD [address] [place], [place] [id number] ER Follow-up Social History Tobacco Use Types [...] t he electric, gas, oil or water [employer] threatened to shut off services in your [...] weakness and Pt fell down. Ptwent to [facility] via ambulance but, because it was so full Pt then went to [facility] ED 12/17/23 .Pt did have xrays done and was told the pain was due to sciatica and there was a curvature in the spine. [facility] information is not on the chart but, [...] Reason: Other Override Notes: Pt seen in [facility] Ed Video visit not offered Positive Triage [...] 1:52 PM EDT Tc from Alondra at [facility] stating pt is still in severe pain and is requesting to speak to a nurse or be seen. Alondra stated pt is unable to take medication prescribed at [facility] due to breast feeding. Advised will forward to triage nurse. Contact pt at [phone] * Telephone Encounter - Nirav Corrales - 12/18/2023 8:31 AM EDT Patient calling to report ED visit on : Date: 12/16 Hospital: [facility] Seen for: Back Pain Patient advised will forward to team nurse for follow up documented in this encounter Plan of Treatment Upcoming Encounters Date Type Department Care Team (Late st Contact Info) Description 09/03/2024 9:00 AM EDT Office Visit [facility] CHC ADULT DENTAL [address] [place] [address] Ajay Irwin [address] [place] [address] documented as of this encounter Visit Diagnoses Not on filedocumented in this encounter Care Teams Pipe Finisher Relationship Specialty Start Date End Date Marielle Hayes MD [address] [place] [address] PCP - General Family Medicine 01/25/22 marielle Hayes Job HandTool Trouble Shooter 07/11/23 Bryan Vyas Job HandTool Trouble Shooter 11/05/23 documented as of this encounter
--- OUTSIDE RECORDS SUMMARY | 2024-08-26 13:48 | XMS_ITS | Encounter Summary ---
Author Organization [employer] Address [address] [facility] 7t [place] [address] Care Team Providers Care Vice Principal Name Role Phone Marielle Hayes MD Primary Care Provider [phone] Encounter Details Date Type Department Care Team ([facility] st Contact Info) Description 02/11/2024 Orders Only [facility] CHC MED & PEDS [address] [place] [address] Marielle Hayes MD [address] [place] [address] Iron deficiency anemia, unspecified iron deficiency anemia [...] Description 09/03/2024 9:00 AM EDT Office Visit [facility] ADULT DENTAL [address] [place] [address] Irwin Harmanpreet [address] [place] [address] Scheduled Orders Name Type Priority Associated Diagnoses [...] EDT Narrative 04/22/2024 2:45 PM EST ? [facility] ?[address] ?[place] [address] ? Ultrasound Report ? Signed ? Patient: Elatifi,Soukaina ?MR#: [id number] ?? [id number] ? : 2000 ?Acct:[id number] ? Age/Sex: 23 / F ?ADM Date: 11/01/24 ? Loc: HO.US ? Attending Dr: Gina Nicole MD ? Ordering Physician: Gina Nicole MD ?? Date of Service: 03/06/24 ?? Procedure(s): US abdomen complete ?? Accession Number(s): [id number] ? cc: Marielle Hayes MD; Gina Nicole [...] DD/ 1 ? TD/TT: 03/06/24 0946 ? Level Vial Inspector: ? Procedure Note Donotuseinterpreter, Image - 04/22/[address] [address] Ultrasound Report Signed Patient: David SilvaMR#: [id number] : 2000Acct:[id number] Age/Sex: 23 / FADM Date: 03/06/24 Loc: HO.US Attending Dr: Gina Nicole MD Ordering Physician: Gina Nicole MD Date of Service: 03/06/24 Procedure(s): US abdomen complete Accession Number(s): [id number] cc: Marielle Hayes MD; Gina Nicole MD [...] by: Naun Ramos MD 04/22/2024 02:43 PM [facility] Dictated By: Naun Ramos MD Signed By: <Electronically signed by Naun Ramos MD in OV> 04/22/24 1443 DD/ TD/TT: 03/06/24 0946 Level Vial Inspector: [facility] External Provider IMG US PROCEDURES Edited Result - Final documented in this encounter Visit Diagnoses Diagnosis Iron deficiency anemia, unspecified iron deficiency anemia type- Primary documented in this encounter Additional Health Concerns Assessment Noted Time PHQ-9 Depression Total Score: 0 02/10/20 9:50 AM EDT documented as of this encounter Care Teams Vice Principal Relationship Specialty Start Date End Date Marielle Hayes MD [address] [place] [address] PCP - General Family Medicine 01/25/22 marielle Hayes Medical Transport SpecialistSite Promotion Agent 07/11/23 Bryan Vyas Medical Transport SpecialistSite Promotion Agent 11/05/23 documented as of this encounter
== END 2024-08-26 10:43 | disposition home or self-care (01) ==
LOC: HO.LAB 10:42
PROVIDERS: PCP Family Medicine; Visit Provider Internal Medicine
DX: R53.83 Other fatigue (principal); D50.9 Iron deficiency anemia, unspecified; D64.9 Anemia, unspecified; R10.13 Epigastric pain; K20.80 Other esophagitis without bleeding
CPT/HCPCS: 36415; 82306; 82607; 82728; 82746; 83540; 85027; 99212

== ENCOUNTER 2024-08-26 10:42 | Outpatient (AMB) | payer MEDICAID, SELFPAY ==
--- NOTE | 2024-08-26 10:45 | A.OFFVIS_ITS ---
Vital Signs 08/26/24 10:49 Height 5 ft 6 in Weight 200 lb 9.93 oz BMI 32.4 BP 115/67 Blood Pressure Location Lt brachial Position Sitting Pulse 71 Intake Visit Reasons: s/p egd Intake Note: David presents in the office as a follow up EGD. CC: She states that she is not having any concerns at this time. Allergies No Known Allergies Allergy (Verified 08/06/24 08:23) HPI Comments Details: 23 y.o F who is here for abd complaints as below. Reports around 3 years ago started noticing some vague epigastric discomfort with heartburn. At that time assoc with . (had 2 pregnancies close together) However now for the past 3 months despite delivering the baby has persistent sx. 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 Yellow/bilious output. Took omeprazole during which helped but has not been on since delivering her baby. Also reports having low back pain and a dental infection recently and was taking ibuprofen 600 frequently. 04/20/24: Here for follow up. Reports minimal improvement with omeprazole, in fact if anything, sx got worse the past few weeks. US abd pending. Barium swallow reviewed. Pt also with RAPHAEL and on iron supplements through her PCP. 08/06/24: EGD Impressions:? * Grade A esophagitis (biopsy) * Normal stomach (biopsy) * Normal duodenum (biopsy)?? A. Duodenum, biopsy: Duodenal mucosa with focal heterotopic gastric tissue; otherwise within normal limits. B. Stomach, random, biopsy: Antral-type and oxyntic mucosa with mild chronic inactive inflammation; no Helicobacter organisms seen. C. Esophagus, lower, biopsy: Squamous epithelium within normal limits; no inflammation seen. D. Esophagus, middle, biopsy: Squamous epithelium within normal limits; no inflammation seen 08/26/24: Here for follow up. Reports improvement in reflux and pyrosis on bid omeprazole. However says had to pick it up OTC as pharmacy nevetr got the script. Will resend today. Also reports fatigue and easy tiredness. On nexplanon for control but also had 2 pregnancies in a short time and is iron deficient. Has been on PO iron x months - will recheck labs today and if minimal improvement will recommend IV infisions. [facility] Medical History (Updated 08/26/24 @ 11:40 by Gina Nicole MD) Anemia Surgical History (Updated 08/26/24 @ 10:50 by ALYSA Mckeon) History of esophagogastroduodenoscopy (EGD) Social History Household Members: Spouse and Family Alcohol intake: never Patient Tobacco Use Status: Never used Tobacco Review of Systems Const All systems reviewed & are unremarkable except as noted in HPI and below Physical Exam Vital Signs: Last Vital Signs Pulse 71 08/26/24 10:49 BP 115/67 08/26/24 10:49 BMI result Body Mass Index 32.4 No apparent distress Nonicteric Abdomen soft, nondistended Alert and oriented x3, normal gait Assessment & Plan Assessment & Plan (1) Fatigue: Code(s): R53.83 - Other fatigue Category: Medical (2) Iron deficiency anemia: Code(s): D50.9 - Iron deficiency anemia, unspecified Category: Medical (3) Anemia: Code(s): D64.9 - Anemia, unspecified Category: Medical (4) Epigastric pain: Code(s): R10.13 - Epigastric pain Category: Medical (5) Moffett grade A esophagitis: Code(s): K20.80 - Other esophagitis without bleeding Category: Medical Plan 1. GERD with esophagitis Reviewed to take omeprazole 20 BID x 8-12 weeks. Predisposing risk factors include central obesity, diet, decreased physical activity 2. Fatigue Will recheck anemia panel Will also check Vit D levels If iron levels unchanged, will set up for venofer infusions Follow up contingent on above Orders: Orders IRON PROFILE Today R53.83 - Other fatigue Vitamin B12 and Folate Today R53.83 - Other fatigue Vitamin D 25-OH Total Today R53.83 - Other fatigue Ferritin Today R53.83 - Other fatigue Complete Blood Count no Diff Today R53.83 - Other fatigue Medications: Refilled omeprazole 20 mg PO BID 90 days 90 caps 1RF Coding Level of Care Code Est Pt Level 4 (40932) Diagnoses Fatigue R53.83 Iron deficiency anemia D50.9 Anemia D64.9 Epigastric pain R10.13 Moffett grade A esophagitis K20.80
[2024-08-26 10:49] VITALS: BP 115/67; PULSE 71; BMI 32.4
--- OUTSIDE RECORDS SUMMARY | 2024-08-26 12:43 | XMS_ITS | Encounter Summary ---
Author Organization [employer] Address [address] [facility] [address] [place] [address] Care Team Providers Care Dry House Tender Name Role Phone Marielle Hayes MD Primary Care Provider [phone] Reason for Visit * Reason Onset Date Comments ER Follow-up 12/18/2023 Encounter Details Date Type Department Care Team (Late st Contact Info) Description 12/18/2023 Telephone [facility] MEDICINE [address] [place] [address] Marielle Hayes MD [address] [place], [place] [phone] ER Follow-up Social History Tobacco Use Types [...] t he electric, gas, oil or water [employer] threatened to shut off services in your [...] weakness and Pt fell down. Ptwent to [facility] via ambulance but, because it was [...] 1:52 PM EDT Tc from Alondra at [facility] stating pt is still in severe pain and is requesting to speak to a nurse or be seen. Alondra stated pt is unable to take medication prescribed at [facility] due to breast feeding. Advised will forward to triage nurse. Contact pt at [phone] * Telephone Encounter - Nirav Corrales - 12/18/2023 8:31 AM EDT Patient calling to report ED visit on : Date: 12/16 Hospital: [facility] Seen for: Back Pain Patient advised will forward to team nurse for follow up documented in this encounter Plan of Treatment Upcoming Encounters Date Type Department Care Team (Late st Contact Info) Description 09/03/2024 9:00 AM EDT Office Visit [facility] ADULT DENTAL [address] [place] [address] Ajay Irwin [address] [place] [address] documented as of this encounter Visit Diagnoses Not on filedocumented in this encounter Care Teams Dry House Tender Relationship Specialty Start Date End Date Marielle Hayes MD [address] [place] [phone] PCP - General Family Medicine 01/25/22 marielle Hayes Software Build EngineerToolroom Attendant 07/11/23 Bryan Vyas Software Build EngineerToolroom Attendant 11/05/23 documented as of this encounter
--- OUTSIDE RECORDS SUMMARY | 2024-08-26 12:43 | XMS_ITS | Clinical Summary ---
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 Active polyethylene glycol, PEG, 3350 (Glycolax) 17 GM/SCOOP powder TAKE 17GM BY MOUTH DISSOLVED IN WATER ONCE DAILY 023 Active Aspirin Low Dose 81 MG EC tablet TAKE 2 TABLETS BY MOUTH DAILY AT BEDTIME 023 Active multivitamin () 27-0.8 MG tablet Take 1 tablet by mouth in the morning. 120 tablet 1 023 Active Additional Information Patient not taking.Reported on 02/14/2024 diclofenac (Cataflam) 50 MG tablet Take 1 tablet (50 mg) by mouth 3 times daily. 90 tablet 024 Active Additional Information Patient not taking.Reported on 02/14/2024 cyclobenzaprin e (Flexeril) 10 MG tablet Take 1 tablet (10 mg) by mouth 3 times daily for 10 days. 30 tablet 024 Active cholecalcifero l (Vitamin D-3) 50 MCG (1999 UT) capsule Take 1 capsule (50 mcg) by mouth Once per day. 120 capsule 3 024 Active hydrocortisone (Anusol-HC) 2.5 % rectal cream Insert into the rectum 2 times daily. 90 g 1 Active Additional Information Patient not taking.Reported on 02/14/2024 hydrocortisone (Anusol-HC) 25 MG suppository Insert 1 suppository (25 mg) into the rectum 2 times daily. 60 suppository 1 Active Additional Information Patient not taking.Reported on 02/14/2024 senna-docusate sodium (Senokot-S) 8.6-50 MG tablet Take 1 tablet by mouth Once per day. 30 tablet 11 024 2024 Active Additional Information Patient not taking.Reported on 02/14/2024 Etonogestrel (NEXPLANON SC) Inject under the skin. Active ferrous gluconate (Fergon) 324 (38 Fe) MG tablet Take 1 tablet (324 mg) by mouth 2 times daily. 180 tablet 1 Active Additional Information Patient not taking.Reported on 02/14/2024 acetaminophen (Tylenol) 500 MG tabletIndicati ons:Pain of both heels Take 1 tablet (500 mg) by mouth every 6 (six) hours if needed for mild pain. 120 tablet 1 025 2024 Active Diclofenac Sodium 1 % gelIndications :Pain of both heels Apply 1 g topically if needed in the morning, at noon, and at bedtime (pain). 100 g 1 025 2024 Active acetaminophen (Tylenol) 500 MG tablet Take 1 tablet (500 mg) by mouth every 6 (six) hours if needed for mild pain for up to 20 doses. 20 tablet 024 2024 Discontinued(R eorder (will not trigger notification to Pharmacy)) ibuprofen 400 MG tablet Take 1 tablet (400 mg) by mouth every 8 (eight) hours if needed for moderate pain. 60 tablet 024 2024 Discontinued(M ed list cleanup (will not trigger notification to Pharmacy)) Active Problems Problem Noted Date Diagnosed Date [...] Encounters Date Type Department Care Team Description 08/26/2024 Orders Only GENERIC EXTERNAL DATA DEPARTMENT Provider, Generic External Data 08/18/2024 10:00 AM EDT Office Visit [facility] [address] [place] [address] Celso Gil Dental calculus (Primary Dx) 08/12/2024 5:40 PM EDT Office Visit [facility] [address] [place] [phone] Pain of both heels (Primary Dx) 08/06/2024 Orders Only GENERIC EXTERNAL DATA DEPARTMENT Provider, Generic External Data 07/17/2024 Population Health Risk Score [facility] Department [address] [place] [phone] Provider, Population Health Generic 07/12/2024 Orders Only GENERIC EXTERNAL DATA DEPARTMENT Provider, Generic External Data 07/08/2024 9:40 AM EST Office Visit [facility] [address] [place] [phone] Margot Alexandra MD Dizziness; UTI symptoms 06/06/2024 Orders Only GENERIC EXTERNAL DATA DEPARTMENT Provider, Generic External Data from Last 3 Months Immunizations Name Administration [...] Sign Reading Time Taken Comments Blood Pressure 124/62 08/18/2024 10:08 AM EDT Pulse 66 08/18/2024 10:08 AM EDT Temperature 37.2 ??C (98.9 ??F) 08/12/2024 5:53 PM ED T Respiratory Rate 16 08/12/2024 5:53 PM EDT Oxygen Saturation 100% 08/12/2024 5:53 PM EDT Inhaled Oxygen Concentration - - Weight 95.3 kg (210 lb 2 oz) 08/12/2024 5:53 PM EDT Height 167.6 cm (5' 6 ) 08/12/2024 5:53 PM EDT Body Mass Index 33.92 08/12/2024 5:53 PM EDT Plan of Treatment Upcoming Encounters Date Type Department Care Team (Late st Contact Info) Description 09/03/2024 9:00 AM EDT Office Visit [facility] [address] [place] [address] Oscar Irwinpreet [address] [place] [address] Health Maintenance Due Date Last Done Comments Alcohol/Substance Use Screening 2012 Family Planning (PISQ) 2015 Influenza Vaccine (#1) 2024 Postp oned from 01/05/2024 (Patient Refused) Dental X-Ray: Bitewings 01/29/2025 01/29/2024 COVID-19 Vaccine (1 - 2023-2 5 season) 2025 Postponed from 01/05/2024 (Patient Refused) Depression Screening 02/09/2025 02/10/2024, 01/04/2023 HPV Vaccines (1 - 3-dose series) 02/09/2025 Postponed from 2015 (Patient Refused) SDOH Screening 02/09/2025 02/10/2024 Dental Oral Exam 02/18/2025 08/18/2024, 01/29/2024 Dental Prophylaxis 02/18/2025 08/18/2024, 02/14/2024 HPV/Cotest 06/25/2025 Pap Smear 06/25/2025 06/25/2022 Diabetes: Hemoglobin A1C 07/08/2025 025, 01/27/2024 Tobacco Screening 08/18/2025 08/18/2024 Dental X-Ray: Full Mouth 01/29/2027 024, 11/26/2023 [...] Procedure Name Priority Date/Time Associated Diagnosis Comments IRON AND TOTAL IRON BINDING CAPACITY Routine 08/26/2024 11:32 AM EDT CBC Routine 08/26/2024 11:32 AM EDT PERIODIC ORAL EVALUATION - ESTABLISHED PATIENT Routine 08/18/2024 10:00 AM EDT ORAL HYGIENE INSTRUCTIONS Routine 08/18/2024 10:00 AM EDT Full PROPHYLAXIS - ADULT Routine 08/18/2024 10:00 AM EDT CASE PRESENTATION, DETAILED AND EXTENSIVE TREATMENT PLANNING Routine 08/18/2024 10:00 AM EDT HEMATOXYLIN AND EOSIN STAIN Routine 08/06/2024 9:41 AM EDT HCG, QL, URINE Routine 08/06/2024 8:10 AM EDT HCG, TOTAL, QN Routine 07/12/2024 3:42 PM EDT COMPREHENSIVE METABOLIC PANEL Routine 07/12/2024 3:42 PM EDT ABO GROUP AND RH TYPE Routine 07/12/2024 3:42 PM EDT APTT Routine 07/12/2024 3:42 PM EDT PROTHROMBIN TIME-INR Routine 07/12/2024 3:42 PM EDT HCG, QL, URINE Routine 07/12/2024 3:42 PM EDT URINALYSIS WITH REFLEX MICROSCOPIC Routine 07/12/2024 3:42 PM EDT CBC WITH AUTO DIFFERENTIAL Routine 07/12/2024 3:42 PM EDT POCT URINALYSIS DIPSTICK Routine 07/08/2024 10:34 AM [...] AUTO DIFFERENTIAL Routine 06/06/2024 7:51 PM EST INTRAORAL - COMPLETE SERIES OF RADIOGRAPHIC IMAGES Routine 01/29/2024 9:30 AM EDT HEPATITIS C ANTIBODY Routine 01/27/2024 10:13 AM EDT HIV 1/2 ANTIGEN/ANTIBODY, FOURTH GENERATION W/RFL Routine 01/27/2024 10:13 AM EDT HM PAP/HPV Routine 06/25/2022 from Last 3 Months or Most Recently Relevant to Health Maintenance Results * (ABNORMAL) CBC (08/26/2024 11:32 AM EDT) White Blood Count 5.3 4.8 - 10.8 X10*3/uL [facility] Red Blood Count 5.08 4.20 - 5.50 X10*6/uL [facility] Hemoglobin 11.9(L) 12.0 - 16.0 g/dl [facility] Hematocrit 37.9 37.0 - 47.0 % [facility] Mean Corpuscular Volume 74.6(L) 80.0 - 98.0 fL [facility] Mean Corpuscular Hemoglobin 23.4(L) 27.0 - 33.0 pg [facility] Mean Corpuscular HGB Conc 31.4 31.0 - 35.0 g/dl [facility] Red Cell Distribution Width 16.9(H) 11.0 - 16.0 % [facility] Platelet Count 400 160 - 400 X10*3/uL [facility] Mean Platelet Volume 9.7 9.4 - 12.3 fL [facility] NRBC Pct Auto 0.0 0.0 - 0.2 /100WBC [facility] NRBC Abs Auto 0.000 0.0 - 0.012 X10*3/uL [facility] 08/26/2024 11:3 2 AM EDT 08/26/2024 11:32 AM EDT us Generic External Data Provider LAB BLOOD ORDERAB LES Final Result [facility] [address], [place] [phone] * Hematoxylin and Eosin Stain (08/06/2024 9:41 AM EDT) 08/06/2024 9:41 AM EDT 08/06/2024 10:33 AM EDT [facility] - 08/10/2024 3:28 PM EDT ----- ------- Name: David Silva ? Age/Sex: 24/F ? : 2000 Unit#: [id number] ?? Attend Dr: Gina Nicole MD ?Re08/06/24 ?Status: DEP SDC ? Location: HO.SSS ?Disch: ? ----- ------- SPEC : [id number] ? RECD: 08/06/24-1032 ? STATUS: ??SOUT ? REQ NUM: [id number] ? SUBHASH: 08/06/24-940 ? SUBM DR: Gina Nicole MD ? ENTERED: ??08/06/24-1038 ?SP TYPE: Surgical ? OTHR DR: Andrea Hayes MD ? ORDERED: ??HE Stain/12, Gross Micro L4/4, IHC, Special st. 2/2, H. pylori, AB/PAS/2 ? Diagnosis ?? A. ??Duodenum, biopsy: ??Duodenal mucosa with focal heterotopic gastric tissue; otherwise ?? within normal limits. ? B. ??Stomach, random, biopsy: ??Antral-type and oxyntic mucosa with mild chronic inactive ?? inflammation; no Helicobacter organisms seen. ? C. ??Esophagus, lower, biopsy: ??Squamous epithelium within normal limits; no inflammation ?? seen. ? D. ??Esophagus, middle, biopsy: ??Squamous epithelium within normal limits; no inflammation ?? seen. ?Clinical History Pre-Op Dx: ??Abdominal pain, gastritis Post-Op Dx: Grade A esophagitis ?Microscopic Description A-D. ??Microscopic sections examined. ??No metaplastic changes are seen, supported by AB/PAS stains (A and B); no Helicobacter organisms are seen, supported by H. pylori immunostain (B). ? Material Received ?? A. Duodenum bx's ?? B. Random gastric bx's ?? C. Lower esophagus bx's ?? D. Middle esophagus bx's ? Gross Description Received in four parts. Part A: ??Received in formalin labeled ?duodenum bx's? are 3 dias-pink irregular and rectangular tissue fragments ranging from 0.2-0.3 cm, submitted in toto in a cassette labeled A. Part B: ??Received in formalin labeled ?random gastric bx's? are 2 dias-pink irregular and rectangular tissue fragments measuring 0.2 and 0.35 cm, submitted in toto in a cassette labeled B. ? CONTINUED ON NEXT PAGE ----- ------- Name: David Silva ? Age/Sex: 24/ ? : 2000 Unit#: [id number] ?? Attend Dr: Gina Nicole MD ?Re08/06/24 ?Status: DEP SDC ? Location: HO.SSS ?Disch: ? ----- ------- SPEC : [id number] ? RECD: 08/06/24-1032 ? STATUS: ??SOUT ? REQ NUM: [id number] ? SUBHASH: 08/06/24-86 ? SUBM DR: Gina Nicole MD ? ENTERED: ??08/06/24-1038 ?SP TYPE: Surgical ? OTHR DR: Andrea Hayes MD ? ORDERED: ??HE /, Gross Micro L4/4, IHC, Special st. 06/07, H. pylori, AB/PAS/2 ? Gross Description ?(Continued) Part C: ??Received in formalin labeled ?lower esophagus bx's? are 4 cheney-white and dias-pink irregular tissue fragments ranging from 0.15-0.3 cm, submitted in toto in a cassette labeled C. Part D: ??Received in formalin labeled ?middle esophagus bx's? are 3 cheney-white irregular and rectangular tissue fragments ranging from 0.2 to 0.35 cm, submitted in toto in a cassette labeled D. ??CEDS Special studies ordered and performed: Immunostain for H. pylori on B; AB/PAS stains on A and B Copies To: ?? Andrea Hayes MD ?? [address] ?? [place] [address] ?? [phone] ?? Gina Nicole MD ?? [facility] ?? [address] ?? [place] [address] ?? [phone] ?? [email or web address] ----- ------- Signed (signature on file) James Wallace MD 08/10/24 1528 ? ----- ------- ? END OF REPORT ? Generic External Data Provider LAB BLOOD ORDERAB LES Final Result Performing Organization Address [facility] de Phone Number [facility] [address] [place] [address] [phone] * HCG, Qualitative, Urine (08/06/2024 8:10 AM EDT) Only the most recent of3 resultswithin the time period is included. [facility] Urine NEGATIVE NEGATIVE [facility] Comment:This test was develo ped to detect early . Falsenegative results may occur after the 5th - 7th week ofpregnancy when using this test method. If clinicallyindicated, consider a serum hCG. 08/06/2024 8:10 AM EDT 08/06/2024 8:17 AM EDT Generic External Data Provider LAB URINE ORDERAB LES Final Result Performing Organization Address [facility] de Phone Number [facility] [address] [place] [phone] * (ABNORMAL) CBC auto differential (07/12/2024 3:42 PM EDT) Only the most recent of2 resultswithin the time period is included. [facility] White Blood Count 5.0 4.8 - 10.8 X10*3/uL [facility] Red Blood Count 4.81 4.20 - 5.50 X10*6/uL [facility] Hemoglobin 11.4(L) 12.0 - 16.0 g/dl [facility] Hematocrit 36.0(L) 37.0 - 47.0 % [facility] Mean Corpuscular Volume 74.8(L) 80.0 - 98.0 fL [facility] Mean Corpuscular Hemoglobin 23.7(L) 27.0 - 33.0 pg [facility] Mean Corpuscular HGB Conc 31.7 31.0 - 35.0 g/dl [facility] Red Cell Distribution Width 16.8(H) 11.0 - 16.0 % [facility] Platelet Count 383 160 - 400 X10*3/uL [facility] Mean Platelet Volume 9.6 9.4 - 12.3 fL [facility] Neutrophils Percent Auto 47.0 45 - 73 % [facility] Imm Gran Pct Auto 0.2 0.0 - 0.4 % [facility] Lymphocytes Percent Auto 38.2 20 - 40 % [facility] Monocytes Percent Auto 11.4(H) 2 - 11 % [facility] Eosinophils Percent Auto 2.4 0 - 4 % [facility] Basophils Percent Auto 0.8 0 - 2 % [facility] NRBC Pct Auto 0.0 0.0 - 0.2 /100WBC [facility] Neutrophils Absolute Auto 2.3 2.0 - 8.3 x10*3/uL [facility] Imm Gran Abs Auto 0.01 0.00 - 0.03 X10*3/uL [facility] Lymphocytes Absolute Auto 1.9 1.2 - 4.9 X10*3/uL [facility] Monocytes Absolute Auto 0.6 0.1 - 1.2 X10*3/uL [facility] Eosinophils Absolute Auto 0.1 0.0 - 0.4 X10*3/uL [facility] Basophils Absolute Auto 0.0 0.0 - 0.2 X10*3/uL [facility] NRBC Abs Auto 0.000 0.0 - 0.012 X10*3/uL [facility] 07/12/2024 3:42 PM EDT 07/12/2024 3:47 PM EDT us Generic External Data Provider LAB BLOOD ORDERAB LES Final Result Performing Organization Address [facility] Co de Phone Number [facility] [address] [place] [phone] * ABO Group And RH Type (07/12/2024 3:42 PM EDT) Blood Type ABP [facility] Comment:RH IMMUNE GLOBULIN I NDICATED: NO 07/12/2024 3:42 PM EDT 07/12/2024 3:49 PM EDT Generic External Data Provider LAB BLOOD BANK TE ST ORDERABLES Final Result Performing Organization Address [facility] de Phone Number [facility] [address] [place] [phone] * Urinalysis w/reflex microscopic (07/12/2024 3:42 PM EDT) Color Urine Yellow [facility] Appearance Urine Clear [facility] PH 8.0 5.0 - 9.0 [facility] Glucose Urine UA Negative Negative mg/dL [facility] Urine Blood Negative Negative [facility] Specific [place] - Urine 1.025 1.005 - 1.025 [facility] Urine Protein Trace Neg-Trace mg/dL [facility] Urine Ketones 15 Negative mg/dL [facility] Nitrite Urine Negative Negative [facility] Leukocyte Esterase Urine Negative Negative [facility] 07/12/2024 3:42 PM EDT 07/12/2024 3:47 PM EDT Narrative [facility] - 07/12/2024 3:54 PM EDT [id number], Clean Catch Generic External Data Provider LAB URINE ORDERAB LES Final Result Performing Organization Address [facility] Co de Phone Number [facility] [address] [place] [phone] * Partial Thromboplastin Time, Activated (APTT) (07/12/2024 3:42 PM EDT) [facility] Partial Thromboplastin Time 31.8 26.0 - 36.8 SEC [facility] Comment:For information rega rding the monitoring of direct thrombininhibitors, please refer to Pharmacy. 07/12/2024 3:42 PM EDT 07/12/2024 3:47 PM EDT Generic External Data Provider LAB BLOOD ORDERAB LES Final Result Performing Organization Address City/[facility]/ZIP Co de Phone Number [facility] [address] [place] [phone] * (ABNORMAL) Prothrombin Time-INR (07/12/2024 3:42 PM EDT) [facility] Prothrombin Time 12.6(H) 10.9 - 12.4 SEC [facility] INTERNATIONAL NORM RATIO 1.1 0.9 - 1.1 [facility] Comment:INTERNATIONAL NORMAL IZED RATIO (INR) REFERENCE RANGES Reference RangeFor patients not on anticoagulant therapy: 0.9 - 1.1INR ranges for oral anticoagulanttherapy:For prevention and treatment of venous thrombosis and pulmonary embolism: 2.0 - 3.0For acute myocardial infarction with aspirin therapy: 2.0 - 3.0For acute myocardial infarction without aspirin therapy: 3.0 - 4.0For patients with mechanical prosthetic heart valves: 2.5 - 3.5 07/12/2024 3:42 PM EDT 07/12/2024 3:47 PM EDT Generic External Data Provider LAB BLOOD ORDERAB LES Final Result Performing Organization Address [facility]/ZIP Co de Phone Number [facility] [address] [place] [phone] * hCG, Total, Quantitative (07/12/2024 3:42 PM EDT) HCG Quantitative <2 mIU/mL [facility] Comment:Weeks post LMP Appr oximate hCG(Last Menstrual Period) Range (mIU/ml)3 - 4 weeks 9 - 1304 - 5 weeks 75 - 2,6005 - 6 weeks 850 - 20,8006 - 7 weeks 4000 - 100,2007 - 12 weeks 11,500 - 289,26489 - 16 weeks 18,300 - 137,72424 - 29 weeks (2nd trimester) 1,400 - 53,06186 - 41 weeks (3rd trimester) 940 - 60,000The Mendoza B- hCG assay is used for the early detection ofpregnancy; it cannot be used to diagnose any conditionunrelated to . If a B-hCG level is not supportedby the clinical evidence, results should be confirmed by analternative method (qualitative urine hCG, for example). 07/12/2024 3:42 PM EDT 07/12/2024 3:47 PM EDT us Generic External Data Provider LAB BLOOD ORDERAB LES Final Result [facility] [address] [place] [phone] * (ABNORMAL) Comprehensive Metabolic Panel (07/12/2024 3:42 PM EDT) Sodium 142 135 - 145 mmol/L [facility] Potassium 4.0 3.3 - 5.1 mmol/L [facility] Chloride 112(H) 96 - 108 mmol/L [facility] Carbon Dioxide 23 22 - 29 mmol/L [facility] Anion Gap 11(L) 12 - 20 [facility] Urea Nitrogen (BUN) 11 9 - 16 mg/dL [facility] Creatinine, Serum 0.66 0.5 - 1.4 mg/dL [facility] Creatinine Clr Calc Pharmacy 151.4 [facility] Comment:Provided height and weight: 167.64 cm,93.5 kg.eGFR (calculated from the MDRD study equation) and eCrCl(calculated from the Cockcroft-Gault equation) are based ondifferent parameters and may not yield comparable results.If eCrCl result is absurd, please check patient'sheight/weight. Estimated Glomerular Filt Rate >60 [facility] Comment:Chronic Kidney Disea se: Estimated GFR < 60 mL/min/1.66o4Luyptk Kidney Disease: Estimated GFR < 15 mL/min/1.73m2 Glucose 94 60 - 115 mg/dL [facility] Calcium 8.8 8.4 - 10.2 mg/dL [facility] Bilirubin, Total 0.3 0.0 - 1.0 mg/dL [facility] Aspartate Amino Transferase 17 5 - 31 U/L [facility] Alanine Aminotransferase 14 0 - 31 U/L [facility] Total Protein 7.5 6.5 - 8.0 g/dL [facility] Albumin Level 4.0 3.5 - 5.0 g/dL [facility] Alkaline Phosphatase 101 39 - 117 U/L [facility] 07/12/2024 3:42 PM EDT 07/12/2024 3:47 PM EDT us Generic External Data Provider LAB BLOOD ORDERAB LES Final Result [facility] [address] [place] [phone] * (ABNORMAL) POCT urinalysis dipstick manually resulted [...] 10:33 AM EST 07/08/2024 5:29 PM EST Comment:CC Narrative [facility] - 07/10/2024 12:17 PM EST Urine Culture Report Result Urine Culture 50,000 to 100,000 cfu/ml Urine Culture Mixed bacterial migdalia characteristic of Urine Culture urogenital contamination. Specimen Source: Urine clean catch Margot Marquez MD LAB MICROBIOLOGY - NERAL ORDERABLES Final Result [facility] [address] [place] [phone] * POCT HGB A1C (07/08/2024 10:06 [...] (06/06/2024 8:38 PM EST) Color Urine Yellow [facility] Appearance Urine Clear [facility] PH 6.5 5.0 - 9.0 [facility] Glucose Urine UA Negative Negative mg/dL [facility] Urine Blood Negative Negative [facility] Specific [place] - Urine 1.025 1.005 - 1.025 [facility] Urine Protein Negative Neg-Trace mg/dL [facility] Urine Ketones Trace Negative mg/dL [facility] Nitrite Urine Negative Negative [facility] Leukocyte Esterase Urine Trace(A) Negative [facility] RBC Urine 0-2 0 - 2 /HPF [facility] Urine WBC 0-5 0 - 5 /HPF [facility] Urine Squamous Epithelial Cell 3-5 0 - 2 /HPF [facility] Urine Bacteria None Seen None Seen [facility] Hyaline Casts, Urine 0-2 0 - 2 /LPF [facility] 06/06/2024 8:38 PM EST 06/06/2024 8:43 PM EST Narrative [facility] - 06/06/2024 9:00 PM EST Urine, Clean Catch us Generic External Data Provider LAB URINE ORDERAB LES Final Result Performing Organization Address [facility]/ZIP Co de Phone Number [facility] [address] [place] [phone] * Magnesium (06/06/2024 7:51 PM EST) Magnesium 1.9 1.6 - 2.6 mg/dL [facility] 06/06/2024 7:51 PM EST 06/06/2024 7:55 PM EST us Generic External Data Provider LAB BLOOD ORDERAB LES Final Result Performing Organization Address [facility] Co de Phone Number [facility] [address] [place] [phone] * Lipase (06/06/2024 7:51 PM EST) Lipase 37 8 - 78 U/L [facility] 06/06/2024 7:51 PM EST 06/06/2024 7:55 PM EST Generic External Data Provider LAB BLOOD ORDERAB LES Final Result Performing Organization Address [facility] Phone Number [facility] [address] [place] [phone] * Hepatic Function Panel (06/06/2024 7:51 PM EST) Bilirubin, Total 0.3 0.0 - 1.0 mg/dL [facility] Bilirubin, Direct 0.1 0.0 - 0.5 mg/dL [facility] Aspartate Amino Transferase 20 5 - 31 U/L [facility] Alanine Aminotransferase 18 0 - 31 U/L [facility] Total Protein 7.8 6.5 - 8.0 g/dL [facility] Albumin Level 4.2 3.5 - 5.0 g/dL [facility] Alkaline Phosphatase 100 39 - 117 U/L [facility] 06/06/2024 7:51 PM EST 06/06/2024 7:55 PM EST Pixalate External Data Provider LAB BLOOD ORDERAB LES Final Result Performing Organization Address [facility] Phone Number [facility] [address] [place] [phone] * (ABNORMAL) Basic Metabolic Panel (06/06/2024 7:51 PM EST) Sodium 142 135 - 145 mmol/L [facility] [facility] Potassium 3.7 3.3 - 5.1 mmol/L [facility] Chloride 112(H) 96 - 108 mmol/L [facility] Carbon Dioxide 22 22 - 29 mmol/L [facility] Anion Gap 12 12 - 20 [facility] Urea Nitrogen (BUN) 10 9 - 16 mg/dL [facility] Creatinine, Serum 0.69 0.5 - 1.4 mg/dL [facility] Creatinine Clr Calc Pharmacy 146.0 [facility] Comment:Provided height and weight: 167.64 cm,95 kg.eGFR (calculated from the MDRD study equation) and eCrCl(calculated from the Cockcroft-Gault equation) are based ondifferent parameters and may not yield comparable results.If eCrCl result is absurd, please check patient'sheight/weight. Estimated Glomerular Filt Rate >60 [facility] Comment:Chronic Kidney Disea se: Estimated GFR < 60 mL/min/1.68v9Lmdvrt Kidney Disease: Estimated GFR < 15 mL/min/1.73m2 Glucose 98 60 - 115 mg/dL [facility] Calcium 8.8 8.4 - 10.2 mg/dL [facility] 06/06/2024 7:51 PM EST 06/06/2024 7:55 PM EST Generic External Data Provider LAB BLOOD ORDERAB LES Final Result Performing Organization Address City/[facility]/ZIP Co de Phone Number [facility] [address] [place] [phone] * Hepatitis C Ab (01/27/2024 10:13 AM EDT) Hepatitis C Antibody Nonreactive Nonreactive [facility] Comment:Antibodies to HCV no t detected; does not exclude early acuteHCV infection. 01/27/2024 10:1 3 AM EDT 01/27/2024 10:13 AM EDT Generic External Data Provider LAB BLOOD ORDERAB LES Final Result Performing Organization Address City/[facility]/ZIP Co de Phone Number [facility] [address] [place] [phone] * HIV-1/2 Antigen and Antibodies, Fourth Generation, with Reflexes (01/27/2024 10:13 AM EDT) HIV AB/AG Nonreactive Nonreactive [facility] Comment:HIV-1 p24 Ag and/or HIV-1/HIV-2 Ab not detected.A test result that is nonreactive does not exclude thepossibility of exposure to or infection with HIV-1 and/orHIV-2. Nonreactive results in this assay for individualswith prior exposure to HIV-1 and/or HIV-2 may be due toantigen and antibody levels that are below the limit ofdetection of this assay.The Coapt Systemsnity HIV Ag/Ab Combo assay result andsupplemental assay results should be interpreted inconjunction with the patient's clinical presentation,history and other laboratory results. If the results areinconsistent with clinical evidence, additional testing issuggested to confirm the result. 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
--- OUTSIDE RECORDS SUMMARY | 2024-08-26 12:43 | XMS_ITS | Encounter Summary ---
Author Organization [employer] Address [address] [facility] 7t [place] [address] Care Team Providers Care Director Of Neighborhood Service Center Name Role Phone Andrea Hayes MD Primary Care Provider [phone] Encounter Details Date Type Department Care Team ([facility] st Contact Info) Description 08/26/2024 Orders Only GENERIC EXTERNAL DATA [...] Description 09/03/2024 9:00 AM EDT Office Visit [facility] ADULT DENTAL [address] [place] [address] Oscar Irwinkarenet [address] [place] [address] Pending Results Name Type Priority Associated Diagnoses Date /Time Iron And Total Iron Binding Capacity Lab Routine 08/26/2024 11:3 2 AM EDT documented as of this encounter Procedures Procedure Name Priority Date/Time Associated Diagnosis Comments IRON AND TOTAL IRON BINDING CAPACITY Routine 08/26/2024 11:32 AM EDT CBC Routine 08/26/2024 11:32 AM EDT documented in this encounter Results * (ABNORMAL) CBC (08/26/2024 11:32 AM EDT) White Blood Count 5.3 4.8 - 10.8 X10*3/uL [facility] Red Blood Count 5.08 4.20 - 5.50 X10*6/uL [facility] Hemoglobin 11.9(L) 12.0 - 16.0 g/dl [facility] Hematocrit 37.9 37.0 - 47.0 % [facility] Mean Corpuscular Volume 74.6(L) 80.0 - 98.0 fL [facility] Mean Corpuscular Hemoglobin 23.4(L) 27.0 - 33.0 pg [facility] Mean Corpuscular HGB Conc 31.4 31.0 - 35.0 g/dl [facility] Red Cell Distribution Width 16.9(H) 11.0 - 16.0 % [facility] Platelet Count 400 160 - 400 X10*3/uL [facility] Mean Platelet Volume 9.7 9.4 - 12.3 fL [facility] NRBC Pct Auto 0.0 0.0 - 0.2 /100WBC [facility] NRBC Abs Auto 0.000 0.0 - 0.012 X10*3/uL [facility] 08/26/2024 11:3 2 AM EDT 08/26/2024 11:32 AM EDT us Generic External Data Provider LAB BLOOD ORDERAB LES Final Result Performing Organization Address City/State/[facility] Co de Phone Number [facility] [address] [place] [phone] documented in this encounter Visit Diagnoses Not on filedocumented in this encounter Additional Health Concerns Assessment Noted Time PHQ-9 Depression Total Score: 0 02/10/20 24 9:50 AM EDT documented as of this encounter Care Teams Director Of Neighborhood Service Center Relationship Specialty Start Date End Date Andrea Hayes MD [address] [place] [address] PCP - General Family Medicine 01/25/22 andrea Hayes Cut To Length OperatorRelay Telegrapher 07/11/23 Bryan Vyas Cut To Length OperatorRelay Telegrapher 11/05/23 documented as of this encounter
--- OUTSIDE RECORDS SUMMARY | 2024-08-26 12:43 | XMS_ITS | Clinical Summary ---
Author Organization [facility] ity Address [address] [place] [address] Care Team Providers Care Professor Of Astronomy Name Role Phone Unavailable Primary Care Provider [...] Vaccine (2023-2 5 season) 2024 Influenza Vaccine (Season Ended) 2025 HIB Vaccines Aged Out No longer eligi [...] age to complete this topic Meningococcal B Vaccine Aged Out No l onger eligible based on patient's age to complete [...]
--- OUTSIDE RECORDS SUMMARY | 2024-08-26 12:43 | XMS_ITS | Encounter Summary ---
Author Organization [employer] Address [address] [facility] 7t [place] [address] Care Team Providers Care Pharmacy Clinical Coordinator Name Role Phone Marielle Hayes MD Primary Care Provider [phone] Encounter Details Date Type Department Care Team ([facility] st Contact Info) Description 02/11/2024 Orders Only [facility] CH[facility] MED & PEDS [address] [place] [address] Marielle Hayes MD [address] [place] [address] Iron deficiency anemia, unspecified iron deficiency anemia [...] Description 09/03/2024 9:00 AM EDT Office Visit [facility]ULT D[facility]AL [address] [place] [address] Irwin Harmanpreet [address] [place] [address] Scheduled Orders Name Type Priority Associated Diagnoses [...] EDT Narrative 04/22/2024 2:45 PM EST ? [facility] ?[address] ?[place] [address] ? Ultrasound Report ? Signed ? Patient: Elatifi,Soukaina ?MR#: [id number] ?? [id number] ? : 2000 ?Acct:[id number] ? Age/Sex: 23 / F ?ADM Date: 11/01/24 ? Loc: HO.US ? Attending Dr: Gina Nicole MD ? Ordering Physician: Gina Nicole MD ?? Date of Service: 03/06/24 ?? Procedure(s): US abdomen complete ?? Accession Number(s): [id number] ? cc: Marielle Hayes MD; Gina Nicole [...] DD/ 1 ? TD/TT: 03/06/24 0946 ? Watch Dial Maker: ? Procedure Note Donotuseinterpreter, Image - 04/22/[address] [address] Ultrasound Report Signed Patient: David SilvaMR#: [id number] : 2000Acct:[id number] Age/Sex: 23 / FADM Date: 03/06/24 Loc: HO.US Attending Dr: Gina Nicole MD Ordering Physician: Gina Nicole MD Date of Service: 03/06/24 Procedure(s): US abdomen complete Accession Number(s): [id number] cc: Marielle Hayes MD; Gina Nicole MD [...] by: Naun Ramos MD 04/22/2024 02:43 PM [facility] [place] Dictated By: Naun Ramos MD Signed By: <Electronically signed by Naun Ramos MD in OV> 04/22/24 1443 DD/ TD/TT: 03/06/24 0946 Watch Dial Maker: [facility] External Provider IMG US PROCEDURES Edited Result - Final documented in this encounter Visit Diagnoses Diagnosis Iron deficiency anemia, unspecified iron deficiency anemia type- Primary documented in this encounter Additional Health Concerns Assessment Noted Time PHQ-9 Depression Total Score: 0 02/10/20 9:50 AM EDT documented as of this encounter Care Teams Pharmacy Clinical Coordinator Relationship Specialty Start Date End Date Marielle Hayes MD [address] [place] [phone] PCP - General Family Medicine 01/25/22 marielle Hayes Pet Store MerchandiserTurbogenerator Operator 07/11/23 Bryan Vyas Pet Store MerchandiserTurbogenerator Operator 11/05/23 documented as of this encounter
--- OUTSIDE RECORDS SUMMARY | 2024-08-26 12:43 | XMS_ITS | Encounter Summary ---
Author Organization [employer] Address [address] [facility] 7t [place] [address] Care Team Providers Care Bagging Machine Operator Name Role Phone Marielle Hayes MD Primary Care Provider Encounter Details Date Type Department Care Team ([facility] st Contact Info) Description 11/26/2023 Orders Only [facility] CHC MED & PEDS [address] [place] [address] Bora Gil MD [address] [place] [address] Social History Tobacco Use Types Packs/Day Years [...] Description 09/03/2024 9:00 AM EDT Office Visit [facility] ADULT DENTAL [address] [place] [address] Oscar Irwinprenorma [address] [place] [address] documented as of this encounter Procedures Procedure Name Priority Date/Time Associated Diagnosis Comments XR LUMBAR SPINE 2-3 VIEWS Routine 12/17/2023 7:05 PM EDT documented in this encounter Results * XR Lumbar Spine 2-3 Views (12/17/2023 7:05 PM EDT) Anatomical Region Laterality Modality Spine, L-spine Radiographic Bailee ging 12/17/2023 7:05 PM EDT Narrative 12/17/2023 8:08 PM EDT ? [facility] ?[address] ?[place] [address] ?XRay Report ? Signed ? Patient: Elatifi,Soukaina ?MR#: [id number] ?? [id number] ? : 2000 ?Acct:[id number] ? Age/Sex: 23 / F ?ADM Date: 12/17/23 ? Loc: HO.ED ? Attending Dr: ? Ordering Physician: Stephanie Hopkins ?? Date of Service: 12/17/23 ?? Procedure(s): XR lumbar spine 2-3V ?? Accession Number(s): [id number] ? cc: Stephanie Hopkins; Marielle Hayes MD [...] No significant radiographic abnormality. ? Dictated By: ?Autumn Borrero ? Signed By: ?<Electronically signed by Autumn ??Dagtammy in OV> ? 12/17/232004 ? DD/ 04 ? TD/TT: ? Lumber Driver: ? Procedure Note Gem, Jimmie - 12/17/2023 [place] [address] XRay Report Signed Patient: David SilvaMR#: [id number] : 2000Acct:[id number] Age/Sex: 23 FADM Date: 12/17/23 Loc: .ED Attending Dr: Ordering Physician: Stephanie Hopkins Date of Service: 12/17/23 Procedure(s): XR lumbar spine 2-3V Accession Number(s): [id number] cc: Stephanie Hopkins; Marielle Hayes MD EXAMINATION: [...] Borrero in OV> 12/17/232004 DD/ 04 TD/TT: Lumber Driver: [facility] External Provider IMG XR PROCEDURES Edited Result - Final documented in this encounter Visit Diagnoses Not on filedocumented in this encounter Care Teams Bagging Machine Operator Relationship Specialty Start Date End Date Marielle Hayes MD [address] [place] [address] PCP - General Family Medicine 01/25/22 marielle Hayes Dial RefinisherLivestock Handler 07/11/23 Bryan Vyas Dial RefinisherLivestock Handler 11/05/23 documented as of this encounter
--- OUTSIDE RECORDS SUMMARY | 2024-08-26 12:43 | XMS_ITS | Encounter Summary ---
Author Organization [employer] Address [address] [facility] 7t [place] [address] Care Team Providers Care Viscera Washer Name Role Phone Marielle Hayes MD Primary Care Provider [phone] Reason for Visit * Reason Onset Date Comments Nurse Triage 12/13/2023 Encounter Details Date Type Department Care Team (Late st Contact Info) Description 12/13/2023 Telephone [facility] MEDICINE [address] [place] [address] Marielle Hayes MD [address] [place], [place] [phone] Nurse Triage Social History Tobacco Use Types [...] Department Care Team (Angelo Contact Info) Description 09/03/2024 9:00 AM EDT Office Visit [facility]ULT [facility] [address] [place], [place] [phone] Ajay Irwin [address] [place], [place] [phone] documented as of this encounter Visit Diagnoses Not on filedocumented in this encounter Care Teams Viscera Washer Relationship Specialty Start Date End Date Marielle Hayes MD [address] [place] [phone] PCP - General Family Medicine 01/25/22 marielle Hayes Slasher HandSteward Dishwasher 07/11/23 Bryan Vyas Slasher HandSteward Dishwasher 11/05/23 documented as of this encounter
== END 2024-08-26 16:41 | disposition home or self-care (01) ==
LOC: HO.HGI 10:42
PROVIDERS: PCP Family Medicine; Visit Provider Internal Medicine
DX: R53.83 Other fatigue (principal); D50.9 Iron deficiency anemia, unspecified; D64.9 Anemia, unspecified; R10.13 Epigastric pain; K20.80 Other esophagitis without bleeding
CPT/HCPCS: 99214

== ENCOUNTER 2024-10-09 09:15 | Outpatient (RCR) | payer MEDICAID, SELFPAY ==
[2024-09-14 12:23] VITALS: BP 110/62; PULSE 70; RESP 16; TEMP 36.7; O2SAT 98
[2024-09-14] MEDS: Iron Sucrose Complex 200 MG in 0.9 % Sodium Chloride 100 ML 440 MG IV (12:28)
[2024-09-25 09:17] VITALS: BP 122/76; PULSE 76; RESP 16; TEMP 36.2; O2SAT 96
[2024-09-25] MEDS: Iron Sucrose Complex 200 MG in 0.9 % Sodium Chloride 100 ML 440 MG IV (09:26)
[2024-10-02 09:07] VITALS: BP 119/45; PULSE 67; RESP 16; TEMP 36.7; O2SAT 97
[2024-10-02] MEDS: Iron Sucrose Complex 200 MG in 0.9 % Sodium Chloride 100 ML 440 MG IV (09:10)
[2024-10-09 09:11] VITALS: BP 106/61; PULSE 79; RESP 16; TEMP 36.7; O2SAT 98
[2024-10-09] MEDS: Iron Sucrose Complex 200 MG in 0.9 % Sodium Chloride 100 ML 440 MG IV (09:16)
== END 2024-10-09 09:37 | disposition home or self-care (01) ==
LOC: HO.INF 09:15
PROVIDERS: Visit Provider Internal Medicine
DX: D50.9 Iron deficiency anemia, unspecified (principal)
CPT/HCPCS: 96365; J1756

== ENCOUNTER 2024-10-25 05:03 | Emergency (ER) | payer MEDICAID, SELFPAY ==
[2024-10-25 05:05] VITALS: BP 107/60; PULSE 79; RESP 14; TEMP 36.6; O2SAT 96; BMI 33.1
[2024-10-25 05:24] LABS: Basophils Absolute Auto 0.1 X10*3/uL (0.0-0.2); Basophils Percent Auto 0.7 % (0-2); Eosinophils Absolute Auto 0.1 X10*3/uL (0.0-0.4); Eosinophils Percent Auto 1.6 % (0-4); Hematocrit 39.8 % (37.0-47.0); Hemoglobin 13.2 g/dl (12.0-16.0); Imm Gran Abs Auto 0.01 X10*3/uL (0.00-0.03); Imm Gran Pct Auto 0.1 % (0.0-0.4); Lymphocytes Absolute Auto 2.5 X10*3/uL (1.2-4.9); Lymphocytes Percent Auto 34.7 % (20-40); MANUAL DIFF FLAG NO; Mean Corpuscular HGB Conc 33.2 g/dl (31.0-35.0); Mean Corpuscular Volume 78.3 fL (80.0-98.0); Mean Platelet Volume 9.5 fL (9.4-12.3); Monocytes Absolute Auto 0.6 X10*3/uL (0.1-1.2); Monocytes Percent Auto 8.5 % (2-11); Neutrophils Percent Auto 54.4 % (45-73); Platelet Count 274 X10*3/uL (160-400); Red Blood Count 5.08 X10*6/uL (4.20-5.50); Red Cell Distribution Width 19.3 % (11.0-16.0); White Blood Count 7.3 X10*3/uL (4.8-10.8)
[2024-10-25 05:26] LABS: Appearance Urine Cloudy; Color Urine Yellow; Glucose Urine UA Negative (Negative); Leukocyte Esterase Urine Large (3+) (Negative); Nitrite Urine Positive (Negative); Specific Gravity - Urine 1.025 (1.005-1.025); UMIC TRIGGER UACC YES; Urine Blood Small (1+) (Negative); Urine Ketones Negative (Negative); Urine Protein 30 (1+) mg/dL (Neg-Trace)
[2024-10-25 05:27] LABS: UPreg QC Valid YES; Urine Pregnancy NEGATIVE (NEGATIVE)
[2024-10-25 05:28] LABS: Bacteria Urine 4+ (None Seen); UACC Culture Trigger YES; WBC Urine >50 /HPF (0-5)
[2024-10-25 05:45] LABS: Alanine Aminotransferase 20 U/L (0-31); Albumin Level 4.4 g/dL (3.5-5.0); Alkaline Phosphatase 103 U/L (39-117); Anion Gap 12 (12-20); Aspartate Amino Transferase 22 U/L (5-31); Bilirubin Total 0.3 mg/dL (0.0-1.0); Blood Urea Nitrogen 12 mg/dL (9-16); Calcium 9.2 mg/dL (8.4-10.2); Carbon Dioxide 23 mmol/L (22-29); Chloride 111 mmol/L (96-108); Creatinine Clr Calc Pharmacy 146.6; Estimated Glomerular Filt Rate > 60; Glucose Random 103 mg/dL (60-115); Sodium 142 mmol/L (135-145); Total Protein 7.3 g/dL (6.5-8.0)
--- NOTE | 2024-10-25 05:50 | ED_ITS ---
HPI - Female Genitourinary General Chief complaint: Urogenital-Female Stated complaint: burning when urinating Time Seen by Provider: 10/25/24 05:50 Source: patient Mode of arrival: ambulatory Limitations: no limitations History of Present Illness ED Provider: HPI Narrative: Patient no significant past medical history been having dysuria frequency urgency for last 5 days getting worse in last 2 days denies any history of kidney stone no nausea no vomiting no fever no chills no vaginal discharge Related Data Home Medications ?Medication ?Instructions ?Recorded ?Confirmed ferrous gluconate 324 mg (38 mg 324 mg PO DAILY 08/06/24 iron) tablet Previous Rx's ?Medication ?Instructions ?Recorded omeprazole 20 mg capsule,delayed 20 mg PO BID 90 days #90 caps 08/26/24 release cholecalciferol (vitamin D3) 1,250 1,250 mcg PO QWEEK 90 days #13 caps 09/07/24 mcg (50,000 unit) capsule cefuroxime axetil 500 mg tablet 500 mg PO BID 7 days # 14 tabs 10/25/24 phenazopyridine 200 mg tablet 200 mg PO TID 2 days #6 tabs 10/25/24 (Pyridium) Allergies Allergy/AdvReac Type Severity Reaction Status Date / Time No Known Allergies Allergy Verified 10/25/24 05:11 Review of Systems 2 Review of Systems: Yes all other systems are reviewed and are negative PMFSH Past Medical History Medical History Anemia Surgical History History of esophagogastroduodenoscopy (EGD) Social History Social History Household Members: Spouse and Family Alcohol intake: never Patient Tobacco Use Status: Never used Tobacco Advance Directives: No Physical Exam 2 Vital Signs: Vital Signs: Last Vital Signs Temp 97.9 F 10/25/24 05:05 Pulse 79 10/25/24 05:05 Resp 14 10/25/24 05:05 BP 107/60 10/25/24 05:05 Pulse Ox 96 10/25/24 05:05 O2 Del Method Room Air 10/25/24 05:05 BMI result Body Mass Index 33.1 Appearance: Alert. Oriented X3. No acute distress. Eyes: PERRLA, No Nystagmus ENT: Pharynx normal. Oral Mucosa moist Neck: Normal inspection. Neck supple. CVS: Normal heart rate and rhythm. Pulses normal. Respiratory: No respiratory distress. Equal air entry bilateral, no wheezing/rales/rhonchi Abdomen: Soft and mild suprapubic tenderness. Bowel sounds are present, no mass palpable, no CVA tenderness Skin: Skin warm and dry. Normal skin color. Normal skin turgor. Extremities: No lower extremity edema. No calf tenderness Neuro: Oriented X 3. Medical Decision Making Medical Decision Making [facility] Narrative: Patient's uncomplicated UTI will give cefuroxime and Pyridium Lab Data [facility] Lab Attestation statement: I reviewed the patient's lab results. 10/25/24 05:20 10/25/24 05:20 Labs: Lab Results 10/25/24 Range/Units 05:20 WBC 7.3 (4.8-10.8) X10*3/uL RBC 5.08 (4.20-5.50) X10*6/uL Hgb 13.2 (12.0-16.0) g/dl Hct 39.8 (37.0-47.0) % MCV 78.3 L (80.0-98.0) fL MCH 26.0 L (27.0-33.0) pg MCHC 33.2 (31.0-35.0) g/dl RDW 19.3 H (11.0-16.0) % Plt Count 274 D (160-400) X10*3/uL MPV 9.5 (9.4-12.3) fL Immature Gran % (Auto) 0.1 (0.0-0.4) % Neut % (Auto) 54.4 (45-73) % Lymph % (Auto) 34.7 (20-40) % [place] % (Auto) 8.5 (2-11) % Eos % (Auto) 1.6 (0-4) % Baso % (Auto) 0.7 (0-2) % Lymph # (Auto) 2.5 (1.2-4.9) X10*3/uL [place] # (Auto) 0.6 (0.1-1.2) X10*3/uL Eos # (Auto) 0.1 (0.0-0.4) X10*3/uL Baso # (Auto) 0.1 (0.0-0.2) X10*3/uL Abs Immat Gran (auto) 0.01 (0.00-0.03) X10*3/uL Absolute Neuts (auto) 4.0 (2.0-8.3) x10*3/uL Absolute Nucleated RBC 0.000 (0.0-0.012) X10*3/uL Nucleated RBC % (auto) 0.0 (0.0-0.2) /100WBC Sodium 142 (135-145) mmol/L Potassium 4.0 (3.3-5.1) mmol/L Chloride 111 H (96-108) mmol/L Carbon Dioxide 23 (22-29) mmol/L Anion Gap 12 (12-20) BUN 12 (9-16) mg/dL Creatinine 0.68 (0.5-1.4) mg/dL Estim Creat Clear Calc 146.6 Estimated GFR > 60 Random Glucose 103 (60-115) mg/dL Calcium 9.2 (8.4-10.2) mg/dL Total Bilirubin 0.3 (0.0-1.0) mg/dL AST 22 (5-31) U/L ALT 20 (0-31) U/L Alkaline Phosphatase 103 (39-117) U/L Total Protein 7.3 (6.5-8.0) g/dL Albumin 4.4 (3.5-5.0) g/dL Urine Color Yellow Urine Appearance Cloudy Urine pH 6.0 (5.0-9.0) Ur Specific [place] 1.025 (1.005-1.025) Urine Protein 30 (1+) H (Neg-Trace) mg/dL Urine Glucose (UA) Negative (Negative) mg/dL Urine Ketones Negative (Negative) mg/dL Urine Blood Small (1+) H (Negative) Urine Nitrite Positive H (Negative) Ur Leukocyte Esterase Large (3+) H (Negative) Urine RBC 6-10 H (0-2) /HPF Urine WBC >50 H (0-5) /HPF Ur Squamous Epith Cells 6-10 (0-2) /HPF Urine Bacteria 4+ (None Seen) Hyaline Casts 3-5 (0-2) /LPF Urine Test NEGATIVE (NEGATIVE) Discharge Plan Discharge Clinical Impression: Urinary tract infection Patient Disposition: Home, Self-Care Instructions: Urinary Tract Infection in Women (DC) Additional Instructions: Drink plenty of fluids Take antibiotic as prescribed Pyridium for discomfort Report to the ER/PCP if increased pain/vomiting/high fever Prescriptions: New cefuroxime axetil 500 mg tablet 500 mg PO BID 7 Days Qty: 14 0RF phenazopyridine [Pyridium] 200 mg tablet 200 mg PO TID 2 Days Qty: 6 0RF No Action cholecalciferol (vitamin D3) 1,250 mcg (50,000 unit) capsule 1,250 mcg PO QWEEK 90 Days Qty: 13 1RF ferrous gluconate 324 mg (38 mg iron) tablet 324 mg PO DAILY omeprazole 20 mg capsule,delayed release(DR/EC) 20 mg PO BID 90 Days Qty: 90 1RF Print Language: Portuguese
[2024-10-25] MEDS: cefuroxime axetiL 500 MG TABLET PO (06:15)
[2024-10-25] MEDS: Phenazopyridine HCL 200 MG TABLET PO (06:15)
[2024-10-25 06:20] VITALS: BP 107/60; PULSE 79; RESP 14; TEMP 36.6; O2SAT 96
== END 2024-10-25 06:22 | disposition home or self-care (01) ==
PROVIDERS: Emergency Provider Internal Medicine; PCP Family Medicine
DX: N39.0 Urinary tract infection, site not specified (principal); R30.0 Dysuria; R35.0 Frequency of micturition; Z79.899 Other long term (current) drug therapy
CPT/HCPCS: 36415; 80053; 81001; 81025; 85025; 87086; 99283; 99284

== ENCOUNTER 2025-01-13 12:02 | Outpatient (REF) | payer MEDICAID, SELFPAY ==
--- OUTSIDE RECORDS SUMMARY | 2025-01-12 09:00 | XMS_ITS | Encounter Summary ---
Author Organization [employer] Address [address] [facility] 7t [place] [address] Care Team Providers Care Barn Hand Name Role Phone Marielle Hayes MD Primary Care Provider [phone] Reason for Visit * Reason Comments Abdominal Pain Encounter Details Date Type Department Care Team (Late st Contact Info) Description 01/12/2025 9:00 AM EDT Office Visit [facility] [address] [place], [place] [phone] Huan Kelly MD [address] [place] [address] Epigastric pain (Primary Dx) Social History Tobacco Use Types [...] Sign Reading Time Taken Comments Blood Pressure 124/69 01/12/2025 8:55 AM EDT Pulse 66 01/12/2025 8:55 AM EDT Temperature 36.8 C (98.2 F) 01/12/2025 8:55 AM EDT Respiratory Rate 18 01/12/2025 8:55 AM EDT Oxygen Saturation 98% 01/12/2025 8:55 AM EDT Inhaled Oxygen Concentration - - Weight 92.6 kg (204 lb 3.2 oz) 01/12/2025 8:55 A M EDT Height - - Body Mass Index 32.96 08/12/2024 5:53 PM EDT documented in this encounter Progress Notes * Huan Kelly MD - 01/12/2025 9:00 AM EDT Subjective Patient ID: David Lopez is a 24 y.o. female. HPI 3 days ago David had recurrence of constant, worsening epigastric pain and nausea with 3 episodes of vomiting/day for past 2 days. This AM had nausea and vomited yellow liquid and some blood. Pain is associated with dizziness and is worse with po intake. Tried Tylenol with no relief. No fever, urinary sx. No h/o abd surgery. States pain is the same that occurred when she was with last 2 children. States followed by [facility], had endoscopy, barium swallow prescribed omeprazole course that eventually helped and that she finished 10/2024. Abd US done 03/2024 read as IMPRESSION: 1. Mild fatty infiltration of the liver. Normal hepatic contour. No focal liver lesion. 2. No biliary or gallbladder abnormality. 3. The remainder the exam is normal. Lives with and 3 children. LMP=irreg due to Nexplanon. 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 Never smoked. No EtOH. Patient Active Problem List Diagnosis Date Noted UTI symptoms 07/08/2024 Dizziness 07/08/2024 History of gestational diabetes 02/10/2024 Pelvic somatic dysfunction 02/10/2024 Lumbar back pain with radiculopathy affecting lower extremity 12/30/2023 Iron deficiency anemia 01/04/2023 Vitamin D deficiency 01/04/2023 Upper back pain on right side 01/04/2023 Encounter for health-related screening 03/11/2023 The following portions of the chart were reviewed this encounter and updated as appropriate: Tobacco Allergies Meds Problems Med Hx Surg Hx Fam Hx Review of Systems Constitutional: Negative for fever. Respiratory: Negative for shortness of breath. Cardiovascular: Negative for chest pain. Gastrointestinal: Positive for abdominal pain, nausea and vomiting. Genitourinary: Negative for dysuria. Skin: Negative for rash. Neurological: Positive for dizziness. Negative for headaches. Objective Physical Exam Constitutional: Appearance: Normal appearance. HENT: Nose: Nose normal. Eyes: Conjunctiva/sclera: Conjunctivae normal. Pupils: Pupils are equal, round, and reactive to light. Cardiovascular: Rate and Rhythm: Normal rate and regular rhythm. Heart sounds: No murmur heard. Pulmonary: Effort: Pulmonary effort is normal. Breath sounds: Normal breath sounds. Abdominal: General: Abdomen is flat. Palpations: Abdomen is soft. Tenderness: There is abdominal tenderness (RUQ, epigastrium, LUQ). There is guarding. There is no rebound. Musculoskeletal: General: Normal range of motion. Cervical back: No tenderness. Skin: Findings: No rash. Neurological: Mental Status: She is alert. Gait: Gait is intact. Psychiatric: Mood and Affect: Mood normal. Behavior: Behavior normal. Procedures Assessment/Plan Diagnoses and all orders for this visit: Epigastric pain Negative UCG Due to severity of pain and unclear etiology, patient will be going to the ED for further evaluation and treatment. Prescribed Zofran. H. pylori stool antigen ordered. Will call patient with results. Advised to contact [facility] for follow-up appointment after ED visit Other orders - ondansetron (Zofran) 4 MG tablet; Take 1 tablet (4 mg) by mouth every 8 (eight) hours if needed for nausea or vomiting for up to 12 doses. documented in this encounter Plan of Treatment Scheduled Orders Name Type Priority Associated Diagnoses Orde r Schedule Helicobacter pylori Antigen, EIA, Stool Lab Routine Epigastric pain Expected: 01/12/2025 (Approximate), Expires: 01/12/2026 documented as of this encounter Procedures Procedure Name Priority Date/Time Associated Diagnosis Comments POCT , URINE Routine 01/12/2025 9:34 AM EDT Epigastric pain documented in this encounter Results * POCT , urine manually resulted (01/12/2025 9:34 AM EDT) Preg Test, Ur Negative Negative, Indeterminate, None Detected, Invalid, Specimen unsatisfactory for evaluation, Weakly Positive, 2+ Urine 01/12/2025 9:34 AM EDT us Huan Kelly MD POINT OF CARE TEST ENTER/EDIT OR DERABLES Final Result documented in this encounter Visit Diagnoses Diagnosis Epigastric pain- Primary Abdominal pain, epigastric documented in this encounter Additional Health Concerns Assessment Noted Time PHQ-9 Depression Total Score: 0 02/10/20 24 9:50 AM EDT documented as of this encounter Care Teams Barn Hand Relationship Specialty Start Date End Date Marielle Hayes MD [address] [place] [address] PCP - General Family Medicine 01/25/22 marielle Hayes Process SpecialistComposition Molder 07/11/23 Bryan Vyas Process SpecialistComposition Molder 11/05/23 documented as of this encounter
--- OUTSIDE RECORDS SUMMARY | 2025-01-14 16:17 | XMS_ITS | Clinical Summary ---
Author Organization [address] [facility] Address [address] [place] [address] Phone Care Team Providers Care Life Guard Name Role Phone Unavailable Primary Care Provider [...] Cervical Cancer Screening: P ap Smear 2021 HIV Screening 04/04/2022 Hepatitis C Screening 04/04/2022 Social Influencers of Health Screening 04/04/2022 Depression Screening 05/06/2024 COVID-19 Vaccine ( - 2023-2 5 season) 2025 Influenza Vaccine (#1) 2025 HIB Vaccines Aged Out No longer [...] 5 Years) and At-Risk Patients (6 to 49 Years) Aged Out No longer eligible b ased on patient's age to complete this topic RSV Immunization Patients Un alejandro 20 months Aged Out No longer eligible b ased on patient's age to complete this topic Varicella Vaccines Aged Out No longer eligible based on patient's age to complete this topic Insurance MEDICAID - [place]
--- OUTSIDE RECORDS SUMMARY | 2025-01-14 16:17 | XMS_ITS | Encounter Summary ---
Author Organization [employer] Address [address] [facility] 7t [place] [address] Care Team Providers Care Photovoltaic Installation Technician Name Role Phone Marielle Hayes MD Primary Care Provider Encounter Details Date Type Department Care Team (Latest Contact Info) Description 01/12/2025 Travel Social History Tobacco Use Types Packs/Day Years [...] as of this encounter Plan of Treatment Not on file documented as of this encounter Visit Diagnoses Not on filedocumented in this encounter Additional Health Concerns Assessment Noted Time PHQ-9 Depression Total Score: 0 02/10/20 24 9:50 AM EDT documented as of this encounter Care Teams Photovoltaic Installation Technician Relationship Specialty Start Date End Date Marielle Hayes MD [address] [place] [address] PCP - General Family Medicine 01/25/22 marielle Hayes Shot Tube Machine TenderDye Stand Loader 07/11/23 Bryan Vyas Shot Tube Machine TenderDye Stand Loader 11/05/23 documented as of this encounter
--- OUTSIDE RECORDS SUMMARY | 2025-01-14 16:18 | XMS_ITS | Encounter Summary ---
Author Organization [employer] Address [address] [facility] 7 [place] [address] Care Team Providers Care Dealer Card Room Name Role Phone Marielle Hayes MD Primary Care Provider [phone] Renate Lyman RN Unavailable [phone] Carmencita Sierra Unavailable Encounter Details Date Type Department Care Team ([facility] st Contact Info) Description 11/26/2023 Orders Only [facility] CHC MED & PEDS [address] [place] [address] Bora Gil MD [address] [place] [address] Social History Tobacco Use Types Packs/Day Years Used Date Smoking Tobacco: Never Passive Smoke Exposure: Never Smokeless Tobacco: Never Housing Stability Answer Date Recorded What is your housing situation today? I have adithya bourne 02/18/[address] you [...] on file documented as of this encounter Procedures Procedure Name Priority Date/Time Associated Diagnosis Comments XR LUMBAR SPINE 2-3 VIEWS Routine 12/17/2023 7:05 PM EDT documented in this encounter Results * XR Lumbar Spine 2-3 Views (12/17/2023 7:05 PM EDT) Anatomical Region Laterality Modality Spine, L-spine Radiographic Bailee ging 12/17/2023 7:05 PM EDT Narrative 12/17/2023 8:08 PM EDT [place] [address] XRay Report Signed Patient: David Silva MR#: [id number] : 2000 Acct:[id number] Age/Sex: 23 / F ADM Date: 12/17/23 Loc: .ED Attending Dr: Ordering Physician: Stephanie Hopkins Date of Service: 12/17/23 Procedure(s): XR lumbar spine 2-3V Accession Number(s): [id number] cc: Stephanie Hopkins; Marielle Hayes MD EXAMINATION: [...] Borrero in OV> 12/17/232004 DD/ 04 TD/TT: Nurse Practitioner Hospitalist: Procedure Note Hermester, Image - 12/17/2023 [facility] [address] [place] [address] XRay Report Signed Patient: David SilvaMR#: [id number] : 2000Acct:[id number] Age/Sex: 23 / FADM Date: 12/17/23 Loc: HO.ED Attending Dr: Ordering Physician: Stephanie Hopkins Date of Service: 12/17/23 Procedure(s): XR lumbar spine 2-3V Accession Number(s): [id number] cc: Stephanie Hopkins; Marielle Hayes MD EXAMINATION: [...] IMPRESSION: No significant radiographic abnormality. Dictated By: uAtumn Borrero Signed By: <Electronically signed by Autumn Borrero in OV> 12/17/232004 DD/ 04 TD/TT: Nurse Practitioner Hospitalist: [facility] External Provider IMG XR PROCEDURES Edited Result - Final documented in this encounter Visit Diagnoses Not on filedocumented in this encounter Care Teams Dealer Card Room Relationship Specialty Start Date End Date Marielle Hayes MD [address] [place] [address] PCP - General Family Medicine 01/25/22 Renate Lyman RN [address] [place] [address] Registered Nurse Family Medicine 09/14/24 10/08/24 Carmencita Sierra 09/14/24 10/08/24 marielle Hayes HarbormasterManager Endoscopy 07/11/23 Bryan Vyas HarbormasterManager Endoscopy 11/05/23 documented as of this encounter
--- OUTSIDE RECORDS SUMMARY | 2025-01-14 16:18 | XMS_ITS | Encounter Summary ---
Author Organization [employer] Address 75 [facility] 7t [place] [address] Care Team Providers Care Cotton Farmworker Name Role Phone Marielle Hayes MD Primary Care Provider [phone] Renate Lyman RN Unavailable [phone] Carmencita Sierra Unavailable Reason for Visit * Reason Onset Date Comments Nurse Triage 12/13/2023 Encounter Details Date Type Department Care Team (Late st Contact Info) Description 12/13/2023 Telephone [facility] MEDICINE [address] [place] [address] Marielle Hayes MD [address] [place], [place] [phone] Nurse Triage Social History Tobacco Use Types [...] documented in this encounter Plan of Treatment Not on file documented as of this encounter Visit Diagnoses Not on filedocumented in this encounter Care Teams Cotton Farmworker Relationship Specialty Start Date End Date Marielle Hayes MD [address] [place] [address] PCP - General Family Medicine 01/25/22 Renate Lyman RN [address] [place] [address] Registered Nurse Family Medicine 09/14/24 10/08/24 Carmencita Sierra 09/14/24 10/08/24 marielle Hayes Salesperson WigsMash Tub Cooker 07/11/23 Bryan Vyas Salesperson WigsMash Tub Cooker 11/05/23 documented as of this encounter
--- OUTSIDE RECORDS SUMMARY | 2025-01-14 16:18 | XMS_ITS | Encounter Summary ---
Author Organization [employer] Address 75 [facility] 7 [place] [address] Care Team Providers Care Comptroller Name Role Phone Marielle Hayes MD Primary Care Provider [phone] Renate Lyman RN Unavailable [phone] Carmencita Sierra Unavailable Encounter Details Date Type Department Care Team ([facility] st Contact Info) Description 02/11/2024 Orders Only [facility] CH[facility] MED & PEDS [address] [place] [address] Marielle Hayes MD [address] [place] [address] Iron deficiency anemia, unspecified iron deficiency anemia [...] as of this encounter Plan of Treatment Scheduled Orders [...] 9:12 AM EDT Narrative 04/22/2024 2:45 PM [place] [address] Ultrasound Report Signed Patient: David Silva MR#: [id number] : 2000 Acct:[id number] Age/Sex: 23 / F ADM Date: 03/06/24 Loc: HO.US Attending Dr: Gina Nicole MD Ordering Physician: Gina Nicole MD Date of Service: 03/06/24 Procedure(s): US abdomen complete Accession Number(s): [id number] cc: Marielle Hayes MD; Gina Nicole MD [...] by: Naun Ramos MD 04/22/2024 02:43 PM [facility] Dictated By: Naun Ramos MD Signed By: <Electronically signed by Naun Ramos MD in OV> 04/22/24 1443 DD/ 0912 TD/TT: 03/06/24 0946 Intermediate Manager: Procedure Note Donotuseinterpreter, Image - 04/22/[address] [address] Ultrasound Report Signed Patient: David SilvaMR#: [id number] : 2000Acct:[id number] Age/Sex: 23 / FADM Date: 03/06/24 Loc: HO.US Attending Dr: Gina Nicole MD Ordering Physician: Gina Nicole MD Date of Service: 03/06/24 Procedure(s): US abdomen complete Accession Number(s): [id number] cc: Marielle Hayes MD; Gina Nicole MD [...] by: Naun Ramos MD 04/22/2024 02:43 PM [facility] Dictated By: Naun Ramos MD Signed By: <Electronically signed by Naun Ramos MD in OV> 04/22/24 1443 DD/ 1 TD/TT: 03/06/24 09 Intermediate Manager: [facility] External Provider IMG US PROCEDURES Edited Result - Final documented in this encounter Visit Diagnoses Diagnosis Iron deficiency anemia, unspecified iron deficiency anemia type- Primary documented in this encounter Additional Health Concerns Assessment Noted Time PHQ-9 Depression Total Score: 0 02/10/20 24 9:50 AM EDT documented as of this encounter Care Teams Comptroller Relationship Specialty Start Date End Date Marielle Hayes MD [address] [place] [address] PCP - General Family Medicine 01/25/22 Renate Lyman RN [address] [place] [address] Registered Nurse Family Medicine 09/14/24 10/08/24 Carmencita Sierra 09/14/24 10/08/24 marielle Hayes Roll Dough DividerDesk Reporter 07/11/23 Bryan Vyas Roll Dough DividerDesk Reporter 11/05/23 documented as of this encounter
--- OUTSIDE RECORDS SUMMARY | 2025-01-14 16:18 | XMS_ITS | Clinical Summary ---
Author Organization [employer] Address 75 [facility] 7 [place] [address] Care Team Providers Care Store Operations Manager Name Role Phone Andrea Hayes MD Primary Care Provider [phone] Allergies No known active allergies Medications simethicone [...] 24 Active cholecalciferol (Vitamin D-3) 50 MCG (1999) capsule Take 1 capsule (50 mcg) by mouth Once per day. 120 capsule 3 12/30/19 24 Active hydrocortisone (Anusol-HC) 2.5 % rectal cream [...] Information Patient not taking.Reported on 02/14/2024 ibuprofen 200 MG tablet Take 200 mg by mouth if needed for mild pain. Active cefuroxime (Ceftin) 500 MG tablet Take 500 mg by mouth 2 times daily. 7 days Active phenazopyridine (Pyridium) 200 MG tablet Take 200 mg by mouth if needed in the morning, at noon, and at bedtime for bladder spasms. 2 dayss Active ondansetron (Zofran) 4 MG tablet Take 1 tablet (4 mg) by mouth every 8 (eight) hours if needed for nausea or vomiting for up to 12 doses. 10 tablet 01/13/20 25 Active Active Problems Problem Noted Date Diagnosed [...] Encounters Date Type Department Care Team Description 01/12/2025 9:00 AM EDT Office Visit [facility] [address] [place] [address] Huan Kelly MD Epigastric pain (Primary Dx) 01/12/2025 Travel 10/26/2024 11:15 AM EDT Telemedicine [facility] MED & PEDS [address] [place] [address] Nasima Mendiola RN Acute pyelonephritis [N10] 10/26/2024 Travel 10/25/2024 Orders Only GENERIC EXTERNAL DATA DEPARTMENT Provider, Generic External Data from Last 3 Months Immunizations Immunization Administration Dates Next Due Tdap 10/18/2023,10/26/2022 Social [...] oz) 01/12/2025 8:55 A M EDT Height 167.6 cm (5' 6 ) 08/12/2024 5:53 PM EDT Body Mass Index 32.96 08/12/2024 5:53 PM EDT Plan of Treatment Health Maintenance Due Date Last Done Comments Disability Screening 2000 Alcohol/Substance Use Screening 2012 Family Planning (PISQ) 2015 COVID-19 Vaccine (2023-2 5 season) 2025 Influenza Vaccine (#1) 2025 Dental X-Ray: Bitewings 01/29/2025 01/29/2024 Depression Screening 02/09/2025 02/10/2024, 01/04/2023 HPV Vaccines (1 - 3-dose series) 02/09/2025 Postponed from 2015 (Patient Refused) SDOH Screening 02/09/2025 02/10/2024 Dental Oral Exam 02/18/2025 08/18/2024, 01/29/2024 Dental Prophylaxis 02/18/2025 08/18/2024, 02/14/2024 Pap Smear 06/25/2025 06/25/2022 Diabetes: Hemoglobin A1C 07/08/2025 025, 01/27/2024 Tobacco Screening 01/12/2026 01/12/2025 Dental X-Ray: Full Mouth 01/29/2027 024, 11/26/2023 [...] Years) and At-Risk Patients (6 to 49) Years Aged Out No longer eligible b ased [...] Routine 01/12/2025 9:34 AM EDT Epigastric pain COMPREHENSIVE METABOLIC PANEL Routine 10/25/2024 5:20 AM EDT HCG, QL, URINE Routine 10/25/2024 5:20 AM EDT URINALYSIS, COMPLETE, WITH REFLEX TO CULTURE Routine 10/25/2024 5:20 AM EDT CBC WITH AUTO DIFFERENTIAL Routine 10/25/2024 5:20 AM EDT CULTURE, URINE, ROUTINE Routine 10/25/2024 12:00 AM EDT Full PROPHYLAXIS - ADULT Routine 08/18/2024 10:00 AM EDT PERIODIC ORAL EVALUATION - ESTABLISHED PATIENT Routine 08/18/2024 10:00 AM EDT POCT GLYCATED HEMOGLOBIN, TOTAL Routine 07/08/2024 10:06 AM EST Dizziness INTRAORAL - COMPLETE SERIES OF RADIOGRAPHIC IMAGES Routine 01/29/2024 9:30 AM EDT HEPATITIS C ANTIBODY Routine 01/27/2024 10:13 AM EDT HIV 1/2 ANTIGEN/ANTIBODY, FOURTH GENERATION W/RFL Routine 01/27/2024 10:13 AM EDT HM PAP/HPV Routine 06/25/2022 from Last 3 Months or Most Recently Relevant to Health Maintenance Results * POCT , urine manually resulted (01/12/2025 9:34 AM EDT) Preg Test, Ur Negative Negative, Indeterminate, None Detected, Invalid, Specimen unsatisfactory for evaluation, Weakly Positive, 2+ Urine 01/12/2025 9:34 AM EDT Huan Kelly MD POINT OF CARE TEST ENTER/EDIT OR DERABLES Final Result * (ABNORMAL) Urinalysis, Complete, with Reflex to Culture (10/25/2024 5:20 AM EDT) Color Urine Yellow [facility] Appearance Urine Cloudy [facility] PH 6.0 5.0 - 9.0 [facility] Glucose Urine UA Negative Negative mg/dL [facility] Urine Blood Small (1+)(A) Negative [facility] Specific Hale - Urine 1.025 1.005 - 1.025 [facility] Urine Protein 30 (1+)(A) Neg-Trace mg/dL [facility] Urine Ketones Negative Negative mg/dL [facility] Nitrite Urine Positive(A) Negative [facility] Leukocyte Esterase Urine Large (3+)(A) Negative [facility] RBC Urine 6-10(A) 0 - 2 /HPF [facility] Urine WBC >50(A) 0 - 5 /HPF [facility] Urine Squamous Epithelial Cell 6-10 0 - 2 /HPF [facility] Urine Bacteria 4+ None Seen [facility] Hyaline Casts, Urine 3-5 0 - 2 /LPF [facility] 10/25/2024 5:20 AM EDT 10/25/2024 5:23 AM EDT Narrative [facility] - 10/25/2024 5:30 AM EDT [id number], Clean Catch us Generic External Data Provider LAB URINE ORDERAB LES Final Result [facility] [address] [place] [address] [phone] * (ABNORMAL) CBC auto differential (10/25/2024 5:20 AM EDT) White Blood Count 7.3 4.8 - 10.8 X10*3/uL [facility] Red Blood Count 5.08 4.20 - 5.50 X10*6/uL [facility] Hemoglobin 13.2 12.0 - 16.0 g/dl [facility] Hematocrit 39.8 37.0 - 47.0 % [facility] Mean Corpuscular Volume 78.3(L) 80.0 - 98.0 fL [facility] Mean Corpuscular Hemoglobin 26.0(L) 27.0 - 33.0 pg [facility] Mean Corpuscular HGB Conc 33.2 31.0 - 35.0 g/dl [facility] Red Cell Distribution Width 19.3(H) 11.0 - 16.0 % [facility] Platelet Count 274 160 - 400 X10*3/uL [facility] Mean Platelet Volume 9.5 9.4 - 12.3 fL [facility] Neutrophils Percent Auto 54.4 45 - 73 % [facility] Imm Gran Pct Auto 0.1 0.0 - 0.4 % [facility] Lymphocytes Percent Auto 34.7 20 - 40 % [facility] Monocytes Percent Auto 8.5 2 - 11 % [facility] Eosinophils Percent Auto 1.6 0 - 4 % [facility] Basophils Percent Auto 0.7 0 - 2 % [facility] NRBC Pct Auto 0.0 0.0 - 0.2 /100WBC [facility] Neutrophils Absolute Auto 4.0 2.0 - 8.3 x10*3/uL [facility] Imm Gran Abs Auto 0.01 0.00 - 0.03 X10*3/uL [facility] Lymphocytes Absolute Auto 2.5 1.2 - 4.9 X10*3/uL [facility] Monocytes Absolute Auto 0.6 0.1 - 1.2 X10*3/uL [facility] Eosinophils Absolute Auto 0.1 0.0 - 0.4 X10*3/uL [facility] Basophils Absolute Auto 0.1 0.0 - 0.2 X10*3/uL [facility] NRBC Abs Auto 0.000 0.0 - 0.012 X10*3/uL [facility] 10/25/2024 5:20 AM EDT 10/25/2024 5:23 AM EDT us Generic External Data Provider LAB BLOOD ORDERAB LES Final Result [facility] [address] [place] [phone] * HCG, Qualitative, Urine (10/25/2024 5:20 AM EDT) Urine NEGATIVE NEGATIVE [facility] Comment:This test was develo ped to detect early . Falsenegative results may occur after the 5th - 7th week ofpregnancy when using this test method. If clinicallyindicated, consider a serum hCG. 10/25/2024 5:20 AM EDT 10/25/2024 5:23 AM EDT us Generic External Data Provider LAB URINE ORDERAB LES Final Result [facility] [address] [place] [phone] [phone] * (ABNORMAL) Comprehensive Metabolic Panel (10/25/2024 5:20 AM EDT) Sodium 142 135 - 145 mmol/L [facility] Potassium 4.0 3.3 - 5.1 mmol/L [facility] Chloride 111(H) 96 - 108 mmol/L [facility] Carbon Dioxide 23 22 - 29 mmol/L [facility] Anion Gap 12 12 - 20 [facility] Urea Nitrogen (BUN) 12 9 - 16 mg/dL [facility] Creatinine, Serum 0.68 0.5 - 1.4 mg/dL [facility] Creatinine Clr Calc Pharmacy 146.6 [facility] Comment:Provided height and weight: 167.64 cm,93.1 kg.eGFR (calculated from the MDRD study equation) and eCrCl(calculated from the Cockcroft-Gault equation) are based ondifferent parameters and may not yield comparable results.If eCrCl result is absurd, please check patient'sheight/weight. Estimated Glomerular Filt Rate >60 [facility] Comment:Chronic Kidney Disea se: Estimated GFR < 60 mL/min/1.87l5Kecuxk Kidney Disease: Estimated GFR < 15 mL/min/1.73m2 Glucose 103 60 - 115 mg/dL [facility] Calcium 9.2 8.4 - 10.2 mg/dL [facility] Bilirubin, Total 0.3 0.0 - 1.0 mg/dL [facility] Aspartate Amino Transferase 22 5 - 31 U/L [facility] Alanine Aminotransferase 20 0 - 31 U/L [facility] Total Protein 7.3 6.5 - 8.0 g/dL [facility] Albumin Level 4.4 3.5 - 5.0 g/dL [facility] Alkaline Phosphatase 103 39 - 117 U/L [facility] 10/25/2024 5:20 AM EDT 10/25/2024 5:23 AM EDT Generic External Data Provider LAB BLOOD ORDERAB LES Final Result Performing Organization Address [facility]/ZIP Co de Phone Number [facility] [address] [place] [phone] * Culture, Urine, Routine (10/25/2024 12:00 AM EDT) Urine Urine specimen obtained by clean catch procedure / Unknown 10/25/2024 10/25/2024 Comment:UACC Narrative [facility] - 10/26/2024 8:38 AM EDT Urine Culture Report Result Urine Culture > 100,000 cfu/ml Urine Culture Mixed bacterial migdalia characteristic of Urine Culture urogenital contamination. Specimen Source: Urine clean catch Generic External Data Provider LAB MICROBIOLOGY - GENERAL ORDERABLES Final Result Performing Organization Address [facility] Co de Phone Number [facility] [address] [place] [phone] * POCT HGB A1C (07/08/2024 10:06 AM EST) Hemoglobin A1C 5.7 4.0 - 6.0 % QC Media Lot # [id number] Lot# Expiration Date Blood 07/08/2024 10:0 6 AM EST Margot Marquez MD POINT OF CARE TEST EN TER/EDIT ORDERABLES Final Result * Hepatitis C Ab (01/27/2024 10:13 AM EDT) Hepatitis C Antibody Nonreactive Nonreactive [facility] Comment:Antibodies to HCV no t detected; does not exclude early acuteHCV infection. 01/27/2024 10:1 3 AM EDT 01/27/2024 10:13 AM EDT Generic External Data Provider LAB BLOOD ORDERAB LES Final Result Performing Organization Address City/[facility]/ZIP Co de Phone Number [facility] [address] [place] [address] [phone] * HIV-1/2 Antigen and Antibodies, Fourth Generation, with Reflexes (01/27/2024 10:13 AM EDT) [facility] HIV AB/AG Nonreactive Nonreactive [facility] Comment:HIV-1 p24 Ag and/or HIV-1/HIV-2 Ab not detected.A test result that is nonreactive does not exclude thepossibility of exposure to or infection with HIV-1 and/orHIV-2. Nonreactive results in this assay for individualswith prior exposure to HIV-1 and/or HIV-2 may be due toantigen and antibody levels that are below the limit ofdetection of this assay.The AutomsoftniOmnireliant HIV Ag/Ab Combo assay result andsupplemental assay results should be interpreted inconjunction with the patient's clinical presentation,history and other laboratory results. If the results areinconsistent with clinical evidence, additional testing issuggested to confirm the result. 01/27/2024 10:1 3 AM EDT 01/27/2024 10:13 AM EDT us Generic External Data Provider LAB BLOOD ORDERAB LES Final Result Performing Organization Address City/[facility]/ZIP Co de Phone Number [facility] [address] [place] [address] [phone] * Hm Pap Smear (06/25/2022) Pathologist [facility] Pap Negative for intraephithelial lesion or malignancy Negative for intraephithelial lesion or malignancy, Other Historical Provider HEALTH MAINTENANCE Final Result from Last 3 Months or Most Recently Relevant to Health Maintenance Insurance [facility] , [facility] [address] [place] [address] [facility] MEDICAID STAND ADULT Care Teams Store Operations Manager Relationship Specialty Start Date End Date Andrea Hayes MD [address] [place] [address] PCP - General Family Medicine 01/25/22 andrea Hayes String Top SealerMachine Repairer Maintenance 07/11/23 Bryan Vyas String Top SealerMachine Repairer Maintenance 11/05/23
--- OUTSIDE RECORDS SUMMARY | 2025-01-14 16:18 | XMS_ITS | Encounter Summary ---
Author Organization [employer] Address 75 [facility] 7t [place] [address] Care Team Providers Care Soaker Soda Worker Name Role Phone Marielle Hayes MD Primary Care Provider [phone] Renate Lyman RN Unavailable [phone] Carmencita Sierra Unavailable Reason for Visit * Reason Onset Date Comments ER Follow-up 12/18/2023 Encounter Details Date Type Department Care Team (Late st Contact Info) Description 12/18/2023 Telephone [facility] MEDICINE [address] [place] [address] Marielle Hayes MD [address] [place], [place] [phone] ER Follow-up Social History Tobacco Use Types [...] weakness and Pt fell down. P[facility]ent to [facility] via ambulance but, because it was so full Pt then went to [facility] ED 12/17/23 .Pt did have xrays done and was told the pain was due to sciatica and there was a curvature in the spine. [facility] information is not on the chart but, will be requested. Pt reports when discharged Pt was g iven prescription for MS 15mg and dexamethasone. Pt [...] Reason: Other Override Notes: Pt seen in [facility] Ed Video visit not offered Positive Triage [...] 1:52 PM EDT Tc from Alondra at [facility] stating pt is still in severe pain and is requesting to speak to a nurse or be seen. Alnodra stated pt is unable to take medication prescribed at [facility] due to breast feeding. Advised will forward to triage nurse. Contact pt at [phone] * Telephone Encounter - Nirav Corrales - 12/18/2023 8:31 AM EDT Patient calling to report ED visit on : Date: 12/16 Hospital: [facility] Seen for: Back Pain Patient advised will forward to team nurse for follow up documented in this encounter Plan of Treatment Not on file documented as of this encounter Visit Diagnoses Not on filedocumented in this encounter Care Teams Soaker Soda Worker Relationship Specialty Start Date End Date Marielle Hayes MD [address] [place] [address] PCP - General Family Medicine 01/25/22 Renate Lyman RN [address] [place] [address] Registered Nurse Family Medicine 09/14/24 10/08/24 Carmencita Sierra 09/14/24 10/08/24 marielle Hayes Vmware ArchitectStaffing Specialist 07/11/23 Bryan Vyas Vmware ArchitectStaffing Specialist 11/05/23 documented as of this encounter
== END 2025-01-13 12:03 | disposition home or self-care (01) ==
LOC: HO.HHCLNP 12:02
PROVIDERS: Visit Provider Emergency Medicine
DX: R10.13 Epigastric pain (principal)
CPT/HCPCS: 87338

== ENCOUNTER 2025-01-29 08:42 | Outpatient (REF) | payer MEDICAID, SELFPAY ==
--- OUTSIDE RECORDS SUMMARY | 2025-01-29 09:11 | XMS_ITS | Encounter Summary ---
Author Organization [employer] Address 75 [facility] 7t [place] [address] Care Team Providers Care Adobe Cq Developer Name Role Phone Marielle Hayes MD Primary Care Provider [phone] Renate Lyman RN Unavailable [phone] Carmencita Sierra Unavailable Reason for Visit * Reason Onset Date Comments Nurse Triage 12/13/2023 Encounter Details Date Type Department Care Team (Late st Contact Info) Description 12/13/2023 Telephone [facility] MEDICINE [address] [place] [address] Marielle Hayes MD [address] [place], [place] [phone] Nurse Triage Social History Tobacco Use Types [...] on filedocumented in this encounter Care Teams Adobe Cq Developer Relationship Specialty Start Date End Date Marielle Hayes MD [address] [place] [address] PCP - General Family Medicine 01/25/22 Renate Lyman RN [address] [place] [address] Registered Nurse Family Medicine 09/14/24 10/08/24 Carmencita Sierra 09/14/24 10/08/24 marielle Hayes Hot Plate Press OperatorOutside Sales Associate 07/11/23 Bryan Vyas Hot Plate Press OperatorOutside Sales Associate 11/05/23 documented as of this encounter
--- OUTSIDE RECORDS SUMMARY | 2025-01-29 09:11 | XMS_ITS | Encounter Summary ---
Author Organization [employer] Address 75 [facility] 7 [place] [address] Care Team Providers Care Inside Sales Account Representative Name Role Phone Marielle Hayes MD Primary Care Provider Renate Lyman RN Unavailable [phone] Carmencita Sierra Unavailable Encounter Details Date Type Department Care Team ([facility] st Contact Info) Description 02/11/2024 Orders Only [facility] MED & PEDS [address] [place] [address] Marielle Hayes MD [address] [place] [address] Iron deficiency anemia, unspecified iron deficiency anemia [...] 9:12 AM EDT Narrative 04/22/2024 2:45 PM [place] [address] Ultrasound Report Signed Patient: David Silva MR#: [id number] : 2000 Acct:[id number] Age/Sex: 23 / F ADM Date: 03/06/24 Loc: HO.US Attending Dr: Gina Nicole MD Ordering Physician: Gina Nicole MD Date of Service: 03/06/24 Procedure(s): US abdomen complete Accession Number(s): [id number] cc: Marielle Hayes MD; Gina Nicole MD [...] by: Naun Ramos MD 04/22/2024 02:43 PM [facility] Dictated By: Naun Ramos MD Signed By: <Electronically signed by Naun Ramos MD in OV> 04/22/24 1443 DD/ 0912 TD/TT: 03/06/24 0946 Relations Mgr: Procedure Note Donotuseinterpreter, Image - 04/22/[address] [address] Ultrasound Report Signed Patient: David SilvaMR#: [id number] : 2000Acct:[id number] Age/Sex: 23 / FADM Date: 03/06/24 Loc: HO.US Attending Dr: Gina Nicole MD Ordering Physician: Gina Nicole MD Date of Service: 03/06/24 Procedure(s): US abdomen complete Accession Number(s): [id number] cc: Marielle Hayes MD; Gina Nicole MD [...] by: Naun Ramos MD 04/22/2024 02:43 PM [facility] Dictated By: Naun Ramos MD Signed By: <Electronically signed by Naun Ramos MD in OV> 04/22/24 1443 DD/ 1 TD/TT: 03/06/24 09 Relations Mgr: [facility] External Provider IMG US PROCEDURES Edited Result - Final documented in this encounter Visit Diagnoses Diagnosis Iron deficiency anemia, unspecified iron deficiency anemia type- Primary documented in this encounter Additional Health Concerns Assessment Noted Time PHQ-9 Depression Total Score: 0 02/10/20 24 9:50 AM EDT documented as of this encounter Care Teams Inside Sales Account Representative Relationship Specialty Start Date End Date Marielle Hayes MD [address] [place] [address] PCP - General Family Medicine 01/25/22 Renate Lyman RN [address] [place] [address] Registered Nurse Family Medicine 09/14/24 10/08/24 Carmencita Sierra 09/14/24 10/08/24 marielle Hayes Forge Utility WorkerLivestock Yard Attendant 07/11/23 Bryan Vyas Forge Utility WorkerLivestock Yard Attendant 11/05/23 documented as of this encounter
--- OUTSIDE RECORDS SUMMARY | 2025-01-29 09:11 | XMS_ITS | Clinical Summary ---
Author Organization [facility] Address [address] [place] [address] Phone Care Team Providers Care Sugar Refiner Name Role Phone Unavailable Primary Care Provider [...] Screening 04/04/2022 Depression Screening 05/06/2024 COVID-19 Vaccine (1 - 2023-2 5 season) 2025 Influenza Vaccine (#1) 2025 RSV Immunization Adult Patie nts (1 - 1-dose 75+ series) 2075 HIB Vaccines Aged Out No longer eligi [...]
--- OUTSIDE RECORDS SUMMARY | 2025-01-29 09:11 | XMS_ITS | Encounter Summary ---
Author Organization [employer] Address [address] [facility] 7t [place] [address] Care Team Providers Care Lap Polisher Name Role Phone Marielle Hayes MD Primary Care Provider Renate Lyman RN Unavailable [phone] Carmencita Sierra Unavailable Reason for Visit * Reason Onset Date Comments ER Follow-up 12/18/2023 Encounter Details Date Type Department Care Team (Late st Contact Info) Description 12/18/[address] [facility] [address] [place] [address] Marielle Hayes MD [address] [place], [place] [id number] ER Follow-up Social History Tobacco Use Types [...] weakness and Pt fell down. Ptwent to [facility] via ambulance but, because it was so full Pt then went to [facility] ED 12/17/23 .Pt did have xrays done and was told the pain was due to sciatica and there was a curvature in the spine. [facility] information is not on the chart but, [...] Reason: Other Override Notes: Pt seen in [facility] Ed Video visit not offered Positive Triage [...] PM EDT Tc from Alondra at [facility] stating pt is still in severe pain and is requesting to speak to a nurse or be seen. Alondra stated pt is unable to take medication prescribed at [facility] due to breast feeding. Advised will forward to triage nurse. Contact pt at [phone] * Telephone Encounter - Nirav Corrales - 12/18/2023 8:31 AM EDT Patient calling to report ED visit on : Date: 12/16 Hospital: [facility] Seen for: Back Pain Patient advised will forward to team nurse for follow up documented in this encounter Plan of Treatment Not on file documented as of this encounter Visit Diagnoses Not on filedocumented in this encounter Care Teams Lap Polisher Relationship Specialty Start Date End Date Marielle Hayes MD [address] [place] [phone] PCP - General Family Medicine 01/25/22 Renate Lyman RN [address] [place] [phone] Registered Nurse Family Medicine 09/14/24 10/08/24 Carmencita Sierra 09/14/24 10/08/24 marielle Hayes Crown Perforator OperatorBarista 07/11/23 Bryan Vyas Crown Perforator OperatorBarista 11/05/23 documented as of this encounter
--- OUTSIDE RECORDS SUMMARY | 2025-01-29 09:11 | XMS_ITS | Encounter Summary ---
Author Organization [employer] Address [address] [facility] 7 [place] [address] Care Team Providers Care Oceanography Teacher Name Role Phone Marielle Hayes MD Primary Care Provider [phone] Renate Lyman RN Unavailable [phone] Carmencita Sierra Unavailable Encounter Details Date Type Department Care Team ([facility] st Contact Info) Description 11/26/2023 Orders Only [facility] MED & PEDS [address] [place] [address] Bora Gil MD [address] [place] [address] Social History Tobacco Use Types Packs/Day Years [...] PM EDT Narrative 12/17/2023 8:08 PM EDT [place] [address] XRay Report Signed Patient: David Silva MR#: [id number] : 2000 Acct:[id number] Age/Sex: 23 / F ADM Date: 12/17/23 Loc: .ED Attending Dr: Ordering Physician: Stephanie Hopkins Date of Service: 12/17/23 Procedure(s): XR lumbar spine 2-3V Accession Number(s): [id number] cc: Stephanie Hopkins; Marielle Hayes MD EXAMINATION: [...] Borrero in OV> 12/17/232004 DD/ 04 TD/TT: Dog Raiser: Procedure Note Hermester, Image - 12/17/2023 [facility] [address] [place] [address] XRay Report Signed Patient: David SilvaMR#: [id number] : 2000Acct:[id number] Age/Sex: 23 / FADM Date: 12/17/23 Loc: HO.ED Attending Dr: Ordering Physician: Stephanie Hopkins Date of Service: 12/17/23 Procedure(s): XR lumbar spine 2-3V Accession Number(s): [id number] cc: Stephanei Hopkins; Marielle Hayes MD EXAMINATION: XR LUMBOSACRAL [...] Borrero in OV> 12/17/232004 DD/ 04 TD/TT: Dog Raiser: [facility] External Provider IMG XR PROCEDURES Edited Result - Final documented in this encounter Visit Diagnoses Not on filedocumented in this encounter Care Teams Oceanography Teacher Relationship Specialty Start Date End Date Marielle Hayes MD [address] [place] [address] PCP - General Family Medicine 01/25/22 Renate Lyman RN [address] [place] [address] Registered Nurse Family Medicine 09/14/24 10/08/24 Carmencita Sierra 09/14/24 10/08/24 marielle Hayes Gray TenderElevator Examiner And Adjuster 07/11/23 Bryan Vyas Gray TenderElevator Examiner And Adjuster 11/05/23 documented as of this encounter
--- OUTSIDE RECORDS SUMMARY | 2025-01-29 09:11 | XMS_ITS | Clinical Summary ---
Author Organization [employer] Address [address] [facility] 7 [place] [address] Care Team Providers Care Clerk Stenographer Name Role Phone Andrea Hayes MD Primary Care Provider Allergies No known active allergies Medications simethicone [...] Encounters Date Type Department Care Team Description 01/18/2025 Results Follow-Up [facility] PED[facility] [address] [place] [address] Huan Kelly MD Helicobacter pylori Antigen, EIA, Stool, POCT , urine manually resulted 01/12/2025 9:00 AM EDT Office Visit [facility] [address] [place], [place] [phone] Huan Kelly MD Epigastric pain (Primary Dx) 01/12/2025 Travel from Last 3 Months Immunizations Immunization Administration [...] Procedure Name Priority Date/Time Associated Diagnosis Comments HELICOBACTER PYLORI AG, EIA, STOOL Routine 01/13/2025 3:33 PM EDT Epigastric pain POCT , URINE Routine 01/12/2025 9:34 AM EDT Epigastric pain Full PROPHYLAXIS - ADULT Routine 08/18/2024 10:00 [...] Recently Relevant to Health Maintenance Results * Helicobacter pylori??Antigen, EIA, Stool (01/13/2025 3:33 PM EDT) H pylori Ag Stool SEE NOTE [facility] Comment:HELICOBACTER PYLORI AG, EIA, STOOL Micro Number: [id number] Test Status: Final Specimen Source: Stool Specimen Quality: Adequate H.pylori Ag: Not Detected Antimicrobials, proton pump inhibitors, and bismuth preparations inhibit H. pylori and ingestion up to two weeks prior to testing may cause false negative results. If clinically indicated the test should be repeated on a new specimen obtained two weeks after discontinuing treatment. Reference Range: Not DetectedTHIS TEST WAS PERFORMED AT:[facility] [address] [id number] PEREIRA MD Stool Rectal contents / Unknown 01/13/2025 3:33 PM EDT 01/14/2025 12:03 PM EDT us Huan Kelly MD LAB BODY FLUIDS AND STOOLS ORDER SARAH Final Result [facility] [address] [place] [phone] * POCT , urine manually resulted (01/12/2025 9:34 AM EDT) Preg Test, Ur Negative Negative, Indeterminate, None Detected, Invalid, Specimen unsatisfactory for evaluation, Weakly Positive, 2+ Urine 01/12/2025 9:34 AM EDT us Huan Kelly MD POINT OF CARE TEST ENTER/EDIT OR DERABLES Final Result * POCT HGB A1C (07/08/2024 10:06 AM EST) [facility] Hemoglobin A1C 5.7 4.0 - 6.0 % QC Media Lot # [id number] Lot# Expiration Date Blood 07/08/2024 10:0 6 AM EST Margot Marquez MD POINT OF CARE TEST EN TER/EDIT ORDERABLES Final Result * Hepatitis C Ab (01/27/2024 10:13 AM EDT) [facility] Hepatitis C Antibody Nonreactive Nonreactive [facility] Comment:Antibodies to HCV no t detected; does not exclude early acuteHCV infection. 01/27/2024 10:1 3 AM EDT 01/27/2024 10:13 AM EDT Generic External Data Provider LAB BLOOD ORDERAB LES Final Result [facility] [address] [place] [phone] * HIV-1/2 Antigen and Antibodies, Fourth Generation, with Reflexes (01/27/2024 10:13 AM EDT) [facility] HIV AB/AG Nonreactive Nonreactive [facility] Comment:HIV-1 p24 Ag and/or HIV-1/HIV-2 Ab not detected.A test result that is nonreactive does not exclude thepossibility of exposure to or infection with HIV-1 and/orHIV-2. Nonreactive results in this assay for individualswith prior exposure to HIV-1 and/or HIV-2 may be due toantigen and antibody levels that are below the limit ofdetection of this assay.The [employer] HIV Ag/Ab Combo assay result andsupplemental assay results should be interpreted inconjunction with the patient's clinical presentation,history and other laboratory results. If the results areinconsistent with clinical evidence, additional testing issuggested to confirm the result. 01/27/2024 10:1 3 AM EDT 01/27/2024 10:13 AM EDT Generic External Data Provider LAB BLOOD ORDERAB LES Final Result [facility] [address] [place] [phone] [phone] * Pap Smear (06/25/2022) Pap Negative for intraephithelial lesion or malignancy Negative for intraephithelial lesion or malignancy, Other Historical Provider HEALTH MAINTENANCE Final Result from Last 3 Months or Most Recently Relevant to Health Maintenance Insurance [facility] , [address] [place] [address] [place] [address] [place] [address] Care Teams Clerk Stenographer Relationship Specialty Start Date End Date Andrea Hayes MD [address] [place] [address] PCP - General Family Medicine 01/25/22 andrea Hayes Oracle SpecialistTransition Lead 07/11/23 Bryan Vyas Oracle SpecialistTransition Lead 11/05/23
[2025-01-29 10:32] LABS: Iron 81 mcg/dL (30-160); Percent Iron Saturation 35 % (15-50); Total Iron Binding Capacity 230 mcg/dL (228-428); Unsaturated Iron Binding 149 ug/dL
[2025-01-29 10:53] LABS: Ferritin 73 ng/mL (10-122)
== END 2025-01-29 08:43 | disposition home or self-care (01) ==
LOC: HO.LAB 08:42
PROVIDERS: PCP Family Medicine; Visit Provider Internal Medicine
DX: D64.9 Anemia, unspecified (principal)
CPT/HCPCS: 36415; 82728; 83540

== ENCOUNTER 2025-01-30 10:13 | Emergency (ER) | payer MEDICAID, SELFPAY ==
[2025-01-30] VITALS (8 sets, daily range): BP systolic 103–126; BP diastolic 52–78; PULSE 55–85; RESP 12–21; TEMP 36.9; O2SAT 76–100; BMI 33.8
--- NOTE | 2025-01-30 | ECG_ITS ---
Test Reason : SOB/CHEST PAIN Blood Pressure : */* mmHG Vent. Rate : 66 BPM Atrial Rate : 66 BPM P-R Int : 152 ms QRS Dur : 86 ms QT Int : 388 ms P-R-T Axes : 61 64 42 degrees QTcB Int : 406 ms Normal sinus rhythm with sinus arrhythmia Normal ECG When compared with ECG of 26-Dec-2023 22:11, No significant change was found Referred By: Generic ED Physician Electronically Signed By: Kyle Miguel
--- NOTE | ~2025-01-30 | XR_ITS ---
CLINICAL HISTORY: sob 1 view chest x-ray Comparison: CR/RI/SR - XR CHEST 2 VIEWS - 03/24/24 10:47 EST Findings: No consolidation or effusion. Normal size heart. No acute fracture. IMPRESSION: 1. No acute findings. This document has been electronically signed by: Dc Thomas MD on 01/30/2025 12:06:26
--- OUTSIDE RECORDS SUMMARY | 2025-01-30 09:00 | XMS_ITS | Encounter Summary ---
Author Organization [employer] Address [address] [facility] 7t [place] [address] Care Team Providers Care Sleep Lab Technician Name Role Phone Marielle Hayes MD Primary Care Provider [phone] Reason for Visit * Reason Comments Sore Throat Respiratory Distress Encounter Details Date Type Department Care Team ([facility] st Contact Info) Description 01/30/2025 9:00 AM EDT Office Visit [facility] [address] [address] Palpitations (Primary Dx); Near syncope; Difficulty breathing; Sore throat Social History Tobacco Use Types Packs/Day Years [...] Sign Reading Time Taken Comments Blood Pressure 120/71 01/30/2025 9:17 AM EDT Pulse 58 01/30/2025 9:17 AM EDT Temperature 37.2 C (98.9 F) 01/30/2025 9:17 AM EDT Respiratory Rate 24 01/30/2025 9:17 AM EDT Oxygen Saturation 99% 01/30/2025 9:17 AM EDT Inhaled Oxygen Concentration - - Weight 92.7 kg (204 lb 6 oz) 01/30/2025 9:17 AM EDT Height 167.6 cm (5' 6 ) 01/30/2025 9:17 AM EDT Body Mass Index 32.99 01/30/2025 9:17 AM EDT documented in this encounter Plan of Treatment Scheduled Orders Name Type Priority Associated Diagnoses Orde r Schedule XR Chest 2 Views Imaging Routine Difficulty breathing Ordered: 01/30/2025 CBC auto differential Lab Routine Difficulty breathing Expected: 01/30/2025 (Approximate), Expires: 01/30/2026 Prothrombin Time-INR Lab Routine Difficulty breathing Expected: 01/30/2025, Expires: 01/30/2026 Partial Thromboplastin Time, Activated (APTT) Lab Routine Difficulty breathing Expected: 01/30/2025, Expires: 01/30/2026 TSH with Reflex to Free T4 Lab Routine Difficulty breathing Expected: 01/30/2025 (Approximate), Expires: 01/30/2026 documented as of this encounter Procedures Procedure Name Priority Date/Time Associated Diagnosis Comments POCT INFLUENZA B (ID NOW RAPID MOLECULAR) Routine 01/30/2025 9:29 AM EDT Difficulty breathing POC RODRIGUEZ ID NOW STREP A Routine 01/30/2025 9:29 AM EDT Sore throat POCT INFLUENZA A (ID NOW RAPID MOLECULAR) Routine 01/30/2025 9:28 AM EDT Difficulty breathing POCT COVID-19 AG RODRIGUEZ ID NOW Routine 01/30/2025 9:27 AM EDT Sore throat documented in this encounter Results * POCT Rapid Strep A RODRIGUEZ ID NOW (01/30/2025 9:29 AM EDT) [facility] Rapid Strep A Screen Negative Negative, None Detected QC Media Lot # [id number] Lot# Expiration Date Swab 01/30/2025 9:29 AM EDT Marielos Brown MD POINT OF CARE TEST ENTER /EDIT ORDERABLES Final Result * POCT Rapid Influenza B RODRIGUEZ ID NOW (01/30/2025 9:29 AM EDT) [facility] Influenza B Negative Negative, Indeterminate [facility] QC Media Lot # [id number] [facility] Lot# Expiration Date [facility] Swab 01/30/2025 9:29 AM EDT Marielos Brown MD POINT OF CARE TEST ENTER /EDIT ORDERABLES Final Result [facility] [address] [place] [phone] * POCT Rapid Influenza A RODRIGUEZ ID NOW (01/30/2025 9:28 AM EDT) Influenza A Negative Negative, Indeterminate [facility] QC Media Lot # [id number] [facility] Lot# Expiration Date ,026 [facility] Swab 01/30/2025 9:28 AM EDT Marielos Brown MD POINT OF CARE TEST ENTER /EDIT ORDERABLES Final Result [facility] [address] [place] [phone] [phone] * POCT Rapid Covid-19 RODRIGUEZ ID NOW (01/30/2025 9:27 AM EDT) Pathologist [facility] Coronavirus Antigen PCR Negative Negative, Indeterminate, None Detected, Invalid, Specimen unsatisfactory for evaluation, Weakly Positive, 2+ QC Media Lot # [id number] Lot# Expiration Date , Swab 01/30/2025 9:27 AM EDT us Marielos Brown MD POINT OF CARE TEST ENTER /EDIT ORDERABLES Final Result documented in this encounter Visit Diagnoses Diagnosis Palpitations- Primary Near syncope Difficulty breathing Other dyspnea and respiratory abnormality Sore throat Acute pharyngitis documented in this encounter Additional Health Concerns Assessment Noted Time PHQ-9 Depression Total Score: 0 02/10/20 9:50 AM EDT documented as of this encounter Care Teams Sleep Lab Technician Relationship Specialty Start Date End Date Marielle Hayes MD [address] [place] [phone] PCP - General Family Medicine 01/25/22 marielle Hayes Power Generating Plant OperatorPlate And Frame Filter Operator 07/11/23 Bryan Vyas Power Generating Plant OperatorPlate And Frame Filter Operator 11/05/23 documented as of this encounter
[2025-01-30 10:46] LABS: MANUAL DIFF FLAG NO
--- NOTE | 2025-01-30 10:47 | PC.NURSE ---
biba from [facility] c/o increased sob/dizziness/syncopal episodes and generalized chest tightness for the past few months. pt noted to have witnessed syncopal episode while being evaluated - lowered to the ground by staff. pt reporting chest pain during event - given 324 ASA w/o relief. 86% on RA during event at facility - placed on 2L via NC w/ good effect. upon ED arrival - pt a&ox4. vss and up to date aside from being hypotensive. pt initially on 2L via NC - transitioned to RA w/ good effect. pt verbalized she started to feel dizzy/sob - pt became diaphoretic/sob and have a witnessed syncopal episode lasting approximately 5 seconds. not responsive to verbal stimuli. responsive to sternal rub. pt noted to become 76% on RA during event - placed on 6L via NC w/ good effect. ekg obtained. 20gIV placed in the right AC - labs obtained/sent to lab. pending CXR/evaluation by provider. pt otherwise back to baseline. family bedside for support. plan of care ongoing. call kraus placed within reach.
[2025-01-30 10:48] LABS: Hematocrit 42.5 % (37.0-47.0); Hemoglobin 15.1 g/dl (12.0-16.0); Imm Gran Abs Auto 0.01 X10*3/uL (0.00-0.03); Imm Gran Pct Auto 0.2 % (0.0-0.4); Lymphocytes Absolute Auto 2.8 X10*3/uL (1.2-4.9); Mean Corpuscular HGB Conc 35.5 g/dl (31.0-35.0); Mean Corpuscular Hemoglobin 29.0 pg (27.0-33.0); Mean Corpuscular Volume 81.6 fL (80.0-98.0); NRBC Abs Auto 0.000 X10*3/uL (0.0-0.012); NRBC Pct Auto 0.0 /100WBC (0.0-0.2); Platelet Count 283 X10*3/uL (160-400); Red Blood Count 5.21 X10*6/uL (4.20-5.50); White Blood Count 5.2 X10*3/uL (4.8-10.8)
--- OUTSIDE RECORDS SUMMARY | 2025-01-30 10:54 | XMS_ITS | Encounter Summary ---
Author Organization [employer] Address [address] [facility] 7t [place] [address] Care Team Providers Care Foot Gatherer Name Role Phone Marielle Hayes MD Primary Care Provider [phone] Renate Lyman RN Unavailable [phone] Carmencita Sierra Unavailable Reason for Visit * Reason Onset Date Comments Nurse Triage 12/13/2023 Encounter Details Date Type Department Care Team (Late st Contact Info) Description 12/13/2023 Telephone [facility] [address] [place] [address] Marielle Hayes MD [address] [place], [place] [phone] Nurse Triage Social History Tobacco Use Types [...] on filedocumented in this encounter Care Teams Foot Gatherer Relationship Specialty Start Date End Date Marielle Hayes MD [address] [place] [address] PCP - General Family Medicine 01/25/22 Renate Lyman RN [address] [place] [address] Registered Nurse Family Medicine 09/14/24 10/08/24 Carmencita Sierra 09/14/24 10/08/24 marielle Hayes Timber Management SpecialistNewspaper Manager 07/11/23 Bryan Vyas Timber Management SpecialistNewspaper Manager 11/05/23 documented as of this encounter
--- OUTSIDE RECORDS SUMMARY | 2025-01-30 10:54 | XMS_ITS | Encounter Summary ---
Author Organization [employer] Address [address] [facility] 7t [place] [address] Care Team Providers Care Construction Representative Name Role Phone Marielle Hayes MD Primary Care Provider [phone] Encounter Details Date Type Department Care Team (Latest Contact Info) Description 01/30/2025 Travel Social History Tobacco Use Types Packs/Day [...] documented as of this encounter Care Teams Construction Representative Relationship Specialty Start Date End Date Marielle Hayes MD [address] [place] [address] PCP - General Family Medicine 01/25/22 marielle Hayes Manager Quality ImprovementMineral Resources Inspector 07/11/23 Bryan Vyas Manager Quality ImprovementMineral Resources Inspector 11/05/23 documented as of this encounter
--- OUTSIDE RECORDS SUMMARY | 2025-01-30 10:54 | XMS_ITS | Encounter Summary ---
Author Organization [employer] Address [address] [facility] 7 [place] [address] Care Team Providers Care A Class Lineman Name Role Phone Marielle Hayes MD Primary Care Provider [phone] Renate Lyman RN Unavailable [phone] Carmencita Sierra Unavailable Encounter Details Date Type Department Care Team ([facility] st Contact Info) Description 02/11/2024 Orders Only [facility] [address] [place] [address] Marielle Hayes MD [address] [place] [address] Iron deficiency anemia, unspecified iron deficiency anemia [...] 9:12 AM EDT Narrative 04/22/2024 2:45 PM [place] [address] Ultrasound Report Signed Patient: David Silva MR#: [id number] : 2000 Acct:[id number] Age/Sex: 23 / F ADM Date: 03/06/24 Loc: HO.US Attending Dr: Gina Nicole MD Ordering Physician: Gina Nicole MD Date of Service: 03/06/24 Procedure(s): US abdomen complete Accession Number(s): [id number] cc: Marielle Hayes MD; Gina Nicole MD [...] by: Naun Ramos MD 04/22/2024 02:43 PM [facility] Dictated By: Naun Ramos MD Signed By: <Electronically signed by Naun Ramos MD in OV> 04/22/24 1443 DD/ 0912 TD/TT: 03/06/24 0946 [facility]: Procedure Note Donotuseinterpreter, Image - 04/22/[address] [address] Ultrasound Report Signed Patient: David SilvaMR#: [id number] : 2000Acct:[id number] Age/Sex: 23 / FADM Date: 03/06/24 Loc: HO.US Attending Dr: Gina Nicole MD Ordering Physician: Gina Nicole MD Date of Service: 03/06/24 Procedure(s): US abdomen complete Accession Number(s): [id number] cc: Marielle Hayes MD; Gina Nicole MD [...] by: Naun Ramos MD 04/22/2024 02:43 PM [facility] Dictated By: Naun Ramos MD Signed By: <Electronically signed by Naun Ramos MD in OV> 04/22/24 1443 DD/ 1 TD/TT: 03/06/24 09 [facility]: [facility] External Provider IMG US PROCEDURES Edited Result - Final documented in this encounter Visit Diagnoses Diagnosis Iron deficiency anemia, unspecified iron deficiency anemia type- Primary documented in this encounter Additional Health Concerns Assessment Noted Time PHQ-9 Depression Total Score: 0 02/10/20 24 9:50 AM EDT documented as of this encounter Care Teams A Class Lineman Relationship Specialty Start Date End Date Marielle Hayes MD [address] [place] [address] PCP - General Family Medicine 01/25/22 Renate Lyman RN [address] [place] [address] Registered Nurse Family Medicine 09/14/24 10/08/24 Carmencita Sierra 09/14/24 10/08/24 marielle Hayes Customs ManagerGerentological Physiotherapist 07/11/23 Bryan Vyas Customs ManagerGerentological Physiotherapist 11/05/23 documented as of this encounter
--- OUTSIDE RECORDS SUMMARY | 2025-01-30 10:54 | XMS_ITS | Clinical Summary ---
Author Organization [address] [facility] Address [address] [place] [address] Phone Care Team Providers Care Photographic Machine Operator Name Role Phone Unavailable Primary Care Provider [...]
--- OUTSIDE RECORDS SUMMARY | 2025-01-30 10:54 | XMS_ITS | Encounter Summary ---
Author Organization [employer] Address [address] [facility] 7t [place] [address] Care Team Providers Care Tafe Teacher Name Role Phone Marielle Hayes MD Primary Care Provider [phone] Encounter Details Date Type Department Care Team (Late st Contact Info) Description 01/29/2025 Orders Only GENERIC EXTERNAL DATA DEPARTMENT Provider, [...] IRON AND TOTAL IRON BINDING CAPACITY Routine 01/29/2025 9:05 AM EDT FERRITIN Routine 01/29/2025 9:05 AM EDT documented in this encounter Results * Ferritin (01/29/2025 9:05 AM EDT) Ferritin 73 10 - 122 ng/mL [facility] 01/29/2025 9:05 AM EDT 01/29/2025 9:05 AM EDT us Generic External Data Provider LAB BLOOD ORDERAB LES Final Result [facility] [address] [place] [address] [phone] * Iron And Total Iron Binding Capacity (01/29/2025 9:05 AM EDT) Iron 81 30 - 160 mcg/dL [facility] Total Iron Binding Capacity 230 228 - 428 mcg/dL [facility] Percent Iron Saturation 35 15 - 50 % [facility] Unsaturated Iron Binding 149 ug/dL [facility] 01/29/2025 9:05 AM EDT 01/29/2025 9:05 AM EDT us Generic External Data Provider LAB BLOOD ORDERAB LES Final Result [facility] [address] [place] [phone] documented in this encounter Visit Diagnoses Not on filedocumented in this encounter Additional Health Concerns Assessment Noted Time PHQ-9 Depression Total Score: 0 02/10/20 24 9:50 AM EDT documented as of this encounter Care Teams Tafe Teacher Relationship Specialty Start Date End Date Marielle Hayes MD [address] [place] [address] PCP - General Family Medicine 01/25/22 marielle Hayes Retail AnalystNetwork Pricing Consultant 07/11/23 Bryan Vyas Retail AnalystNetwork Pricing Consultant 11/05/23 documented as of this encounter
--- OUTSIDE RECORDS SUMMARY | 2025-01-30 10:54 | XMS_ITS | Encounter Summary ---
Author Organization [employer] Address [address] [facility] 7t [place] [address] Care Team Providers Care Solar Panel Technician Name Role Phone Marielle Hayes MD Primary Care Provider [phone] Renate Lyman RN Unavailable [phone] Carmencita Sierra Unavailable Reason for Visit * Reason Onset Date Comments ER Follow-up 12/18/2023 Encounter Details Date Type Department Care Team (Late st Contact Info) Description 12/18/2023 Telephone [facility] MEDICINE [address] [place] [address] Marielle Hayes MD [address] [place], [place] [phone] ER Follow-up Social History Tobacco Use Types [...] weakness and Pt fell down. Ptwent to [facility] via ambulance but, because it was so full Pt then went to [facility] ED 12/17/23 .Pt did have xrays done and was told the pain was due to sciatica and there was a curvature in the spine. [facility] information is not on the chart but, [...] Reason: Other Override Notes: Pt seen in [facility] Ed Video visit not offered Positive Triage [...] 1:52 PM EDT Tc from Alondra at [facility] stating pt is still in severe pain and is requesting to speak to a nurse or be seen. Alondra stated pt is unable to take medication prescribed at [facility] due to breast feeding. Advised will forward to triage nurse. Contact pt at [phone] * Telephone Encounter - Nirav Corrales - 12/18/2023 8:31 AM EDT Patient calling to report ED visit on : Date: 12/16 Hospital: [facility] Seen for: Back Pain Patient advised will forward to team nurse for follow up documented in this encounter Plan of Treatment Not on file documented as of this encounter Visit Diagnoses Not on filedocumented in this encounter Care Teams Solar Panel Technician Relationship Specialty Start Date End Date Marielle Hayes MD [address] [place] [address] PCP - General Family Medicine 01/25/22 Renate Lyman RN [address] [place] [address] Registered Nurse Family Medicine 09/14/24 10/08/24 Carmencita Sierra 09/14/24 10/08/24 marielle Hayes Director Of Creative ServicesSaw Superintendent 07/11/23 Bryan Vyas Director Of Creative ServicesSaw Superintendent 11/05/23 documented as of this encounter
--- OUTSIDE RECORDS SUMMARY | 2025-01-30 10:54 | XMS_ITS | Encounter Summary ---
Author Organization [employer] Address 75 [facility] 7 [place] [address] Care Team Providers Care Rotary Surface Grinder Name Role Phone Marielle Hayes MD Primary Care Provider [phone] Renate Lyman RN Unavailable [phone] Carmencita Sierra Unavailable Encounter Details Date Type Department Care Team ([facility] st Contact Info) Description 11/26/2023 Orders Only [facility] [address] [place] [address] Bora Gil MD [address] [place] [address] Social History Tobacco Use Types Packs/Day Years [...] PM EDT Narrative 12/17/2023 8:08 PM EDT [place] [address] XRay Report Signed Patient: David Silva MR#: [id number] : 2000 Acct:[id number] Age/Sex: 23 / F ADM Date: 12/17/23 Loc: .ED Attending Dr: Ordering Physician: Stephanie Hopkins Date of Service: 12/17/23 Procedure(s): XR lumbar spine 2-3V Accession Number(s): [id number] cc: Stephanie Hopkins; Marielle Hayes MD EXAMINATION: [...] Borrero in OV> 12/17/232004 DD/ 04 TD/TT: Paralegal Assistant: Procedure Note Hermester, Image - 12/17/2023 [facility] [address] [place] [address] XRay Report Signed Patient: David SilvaMR#: [id number] : 2000Acct:[id number] Age/Sex: 23 / FADM Date: 12/17/23 Loc: HO.ED Attending Dr: Ordering Physician: Stephanie Hopkins Date of Service: 12/17/23 Procedure(s): XR lumbar spine 2-3V Accession Number(s): [id number] cc: Stephanie Hopkins; Marielle Hayes MD EXAMINATION: [...] Borrero in OV> 12/17/232004 DD/ 04 TD/TT: Paralegal Assistant: [facility] External Provider IMG XR PROCEDURES Edited Result - Final documented in this encounter Visit Diagnoses Not on filedocumented in this encounter Care Teams Rotary Surface Grinder Relationship Specialty Start Date End Date Marielle Hayes MD [address] [place] [address] PCP - General Family Medicine 01/25/22 Renate Lyman RN [address] [place] [address] Registered Nurse Family Medicine 09/14/24 10/08/24 Carmencita Sierra 09/14/24 10/08/24 marielle Hayes Cattle Care WorkerInternational Marketing Executive 07/11/23 Bryan Vyas Cattle Care WorkerInternational Marketing Executive 11/05/23 documented as of this encounter
--- OUTSIDE RECORDS SUMMARY | 2025-01-30 10:54 | XMS_ITS | Clinical Summary ---
Author Organization [employer] Address [address] [facility] 7 [place] [address] Care Team Providers [employer] Driver Name Role Phone Marielle Hayes MD Primary Care Provider Allergies No [...] Active Problems Problem Noted Date Diagnosed Date Palpitations 01/30/2025 Near syncope 01/30/2025 Difficulty breathing 01/30/2025 UTI symptoms 07/08/2024 Assessment & Plan (07/08/2024 [...] Encounters Date Type Department Care Team Description 01/30/2025 9:00 AM EDT Office Visit [facility] [address] [place] [phone] Palpitations (Primary Dx); Near syncope; Difficulty breathing; Sore throat 01/30/2025 Telephone [facility] [address] [place] [phone] Jaimee lElis RN RAPID ASSIST 01/30/2025 Travel 01/29/2025 Orders Only GENERIC EXTERNAL DATA DEPARTMENT Provider, Generic External Data 01/18/2025 Results Follow-Up [facility] [address] [place] [address] Huan Kelly MD Helicobacter pylori Antigen, EIA, Stool, POCT , urine manually resulted 01/12/2025 9:00 AM EDT Office Visit [facility] [address] [place] [phone] Huan Kelly MD Epigastric pain (Primary Dx) [...] Mass Index 32.99 01/30/2025 9:17 AM EDT Plan of Treatment Health Maintenance Due Date Last Done Comments Disability Screening 2000 Alcohol/Substance Use Screening 2012 Family Planning (PISQ) 2015 COVID-19 Vaccine (2023-06 5 season) 2025 Influenza Vaccine (#1) 2025 Dental X-Ray: Bitewings 01/29/2025 01/29/2024 Depression Screening 02/09/2025 02/10/2024, 01/04/2023 HPV Vaccines (1 - 3-dose series) 02/09/2025 Postponed from 2015 (Patient Refused) SDOH Screening 02/09/2025 02/10/2024 Dental Oral Exam 02/18/2025 08/18/2024, 01/29/2024 Dental Prophylaxis 02/18/2025 08/18/2024, 02/14/2024 Pap Smear 06/25/2025 06/25/2022 Diabetes: Hemoglobin A1C 07/08/2025 025, 01/27/2024 Tobacco Screening 01/30/2026 01/30/2025 Dental X-Ray: Full Mouth 01/29/2027 024, 11/26/2023 [...] Procedure Name Priority Date/Time Associated Diagnosis Comments POC RODRIGUEZ ID NOW STREP A Routine 01/30/2025 9:29 AM EDT Sore throat POCT INFLUENZA B (ID NOW RAPID MOLECULAR) Routine 01/30/2025 9:29 AM EDT Difficulty breathing POCT INFLUENZA A (ID NOW RAPID MOLECULAR) Routine 01/30/2025 9:28 AM EDT Difficulty breathing POCT COVID-19 AG RODRIGUEZ ID NOW Routine 01/30/2025 9:27 AM EDT Sore throat FERRITIN Routine 01/29/2025 9:05 AM EDT IRON AND TOTAL IRON BINDING CAPACITY Routine 01/29/2025 9:05 AM EDT HELICOBACTER PYLORI AG, EIA, STOOL Routine 01/13/2025 [...] Relevant to Health Maintenance Results * POCT Rapid Influenza B RODRIGUEZ ID NOW (01/30/2025 9:29 AM EDT) Influenza B Negative Negative, Indeterminate [facility] QC Media Lot # [id number] [facility] Lot# Expiration Date [facility] Swab 01/30/2025 9:29 AM EDT Marielos Brown MD POINT OF CARE TEST ENTER /EDIT ORDERABLES Final Result Performing Organization Address City/[facility]/ZIP Co de Phone Number [facility] [address] [place] [phone] * POCT Rapid Strep A RODRIGUEZ ID NOW (01/30/2025 9:29 AM EDT) [facility] Rapid Strep A Screen Negative Negative, None Detected QC Media Lot # [id number] Lot# Expiration Date Swab 01/30/2025 9:29 AM EDT Marielos Brown MD POINT OF CARE TEST ENTER /EDIT ORDERABLES Final Result * POCT Rapid Influenza A RODRIGUEZ ID NOW (01/30/2025 9:28 AM EDT) [facility] Influenza A Negative Negative, Indeterminate [facility] QC Media Lot # [id number] [facility] Lot# Expiration Date [facility] Swab 01/30/2025 9:28 AM EDT Marielos Brown MD POINT OF CARE TEST ENTER /EDIT ORDERABLES Final Result Performing Organization Address City/[facility]/ZIP Co de Phone Number [facility] [address] [place] [phone] * POCT Rapid Covid-19 RODRIGUEZ ID NOW (01/30/2025 9:27 AM EDT) [facility] Coronavirus Antigen PCR Negative Negative, Indeterminate, None Detected, Invalid, Specimen unsatisfactory for evaluation, Weakly Positive, 2+ QC Media Lot # [id number] Lot# Expiration Date [id number] Swab 01/30/2025 9:27 AM EDT Marielos Brown MD POINT OF CARE TEST ENTER /EDIT ORDERABLES Final Result * Iron And Total Iron Binding Capacity (01/29/2025 9:05 AM EDT) Iron 81 30 - 160 mcg/dL [facility] Total Iron Binding Capacity 230 228 - 428 mcg/dL [facility] Percent Iron Saturation 35 15 - 50 % [facility] Unsaturated Iron Binding 149 ug/dL [facility] 01/29/2025 9:05 AM EDT 01/29/2025 9:05 AM EDT Generic External Data Provider LAB BLOOD ORDERAB LES Final Result Performing Organization Address [facility] Co de Phone Number [facility] [address] [place] [phone] * Ferritin (01/29/2025 9:05 AM EDT) Ferritin 73 10 - 122 ng/mL [facility] 01/29/2025 9:05 AM EDT 01/29/2025 9:05 AM EDT Generic External Data Provider LAB BLOOD ORDERAB LES Final Result Performing Organization Address [facility] Co de Phone Number [facility] [address] [place] [phone] * Helicobacter pylori??Antigen, EIA, Stool (01/13/2025 3:33 PM EDT) H pylori Ag Stool SEE NOTE [facility] Comment:HELICOBACTER PYLORI AG, EIA, STOOL Micro Number: [id number] Test Status: Final Specimen Source: Stool Specimen Quality: Adequate H.pylori Ag: Not Detected Antimicrobials, proton pump inhibitors, and bismuth preparations inhibit H. pylori and ingestion up to two weeks prior to testing may cause false negative results. If clinically indicated the test should be repeated on a new specimen obtained two weeks after discontinuing treatment. Reference Range: Not DetectedTHIS TEST WAS PERFORMED AT:[facility] [place] [phone] PEREIRA MD Stool Rectal contents / Unknown 01/13/2025 3:33 PM EDT 01/14/2025 12:03 PM EDT Huan Kelly MD LAB BODY FLUIDS AND STOOLS ORDER SARAH Final Result [facility] [address] [place] [phone] * POCT , urine manually resulted (01/12/2025 9:34 AM EDT) Pathologist [facility] Preg Test, Ur Negative Negative, Indeterminate, None Detected, Invalid, Specimen unsatisfactory for evaluation, Weakly Positive, 2+ Urine 01/12/2025 9:34 AM EDT Huan Kelly MD POINT OF CARE TEST ENTER/EDIT OR DERABLES Final Result * POCT HGB A1C (07/08/2024 10:06 AM EST) [facility] Hemoglobin A1C 5.7 4.0 - 6.0 % QC Media Lot # [id number] Lot# Expiration Date Blood 07/08/2024 10:0 6 AM EST Margot Marquez MD POINT OF CARE TEST EN TER/EDIT ORDERABLES Final Result * Hepatitis C Ab (01/27/2024 10:13 AM EDT) Pathologist [facility] Hepatitis C Antibody Nonreactive Nonreactive [facility] Comment:Antibodies to HCV no t detected; does not exclude early acuteHCV infection. 01/27/2024 10:1 3 AM EDT 01/27/2024 10:13 AM EDT us Generic External Data Provider LAB BLOOD ORDERAB LES Final Result Performing Organization Address [facility] Co de Phone Number [facility] [address] [place] [phone] * HIV-1/2 Antigen and Antibodies, Fourth Generation, with Reflexes (01/27/2024 10:13 AM EDT) HIV AB/AG Nonreactive Nonreactive [facility] Comment:HIV-1 p24 Ag and/or HIV-1/HIV-2 Ab not detected.A test result that is nonreactive does not exclude thepossibility of exposure to or infection with HIV-1 and/orHIV-2. Nonreactive results in this assay for individualswith prior exposure to HIV-1 and/or HIV-2 may be due toantigen and antibody levels that are below the limit ofdetection of this assay.The [employer] HIV Ag/Ab Combo assay result andsupplemental assay results should be interpreted inconjunction with the patient's clinical presentation,history and other laboratory results. If the results areinconsistent with clinical evidence, additional testing issuggested to confirm the result. 01/27/2024 10:1 3 AM EDT 01/27/2024 10:13 AM EDT us Generic External Data Provider LAB BLOOD ORDERAB LES Final Result Performing Organization Address [facility] Co de Phone Number [facility] [address] [place] [phone] * Hm Pap Smear (06/25/2022) Pap Negative for intraephithelial lesion or malignancy Negative for intraephithelial lesion or malignancy, Other Historical Provider HEALTH MAINTENANCE Final Result from Last 3 Months or Most Recently Relevant to Health Maintenance Insurance [facility] [address] STANDARD [facility] , [address] [place] [address] DENT[facility] [address] MEDICAID STAND ADULT Care Teams [employer] Driver Relationship Specialty Start Date End Date Marielle Hayes MD [address] [place] [phone] PCP - General Family Medicine 01/25/22 marielle Hayes Personal [employer] 07/11/23 Bryan Vyas Personal [employer] Beveler 11/05/23
[2025-01-30 11:09] LABS: Alanine Aminotransferase 20 U/L (0-31); Albumin Level 4.7 g/dL (3.5-5.0); Alkaline Phosphatase 107 U/L (39-117); Anion Gap 13 (12-20); Aspartate Amino Transferase 19 U/L (5-31); Blood Urea Nitrogen 11 mg/dL (9-16); Calcium 9.5 mg/dL (8.4-10.2); Carbon Dioxide 19 mmol/L (22-29); Chloride 113 mmol/L (96-108); Creatinine Clr Calc Pharmacy 152.6; Estimated Glomerular Filt Rate > 60; Magnesium 1.9 mg/dL (1.6-2.6); Potassium 3.6 mmol/L (3.3-5.1); Sodium 141 mmol/L (135-145); Total Protein 7.7 g/dL (6.5-8.0)
[2025-01-30 11:19] LABS: Troponin-I High Sensitivity < 2.7 ng/L (<3.5-17.0)
--- NOTE | 2025-01-30 12:56 | ED_ITS ---
HPI - General Adult General Chief complaint: Syncope Stated complaint: SYNCOPE Time Seen by Provider: 01/30/25 12:10 History of Present Illness ED Provider: Ahsan SCOTT narrative: The patient is a 24-year-old female who was on omeprazole for gastritis but says she otherwise does not have any significant past medical history. She says that she has been having intermittent problems with shortness of breath for a proximally a year. These symptoms has been worse over the last week. She had a very severe episode yesterday evening and she made up her mind that she would go to her primary care doctor's office this morning. She went to the [facility] this morning and apparently became short of breath and had a syncopal episode in front of staff at the [facility]. An ambulance was called and she was brought to the hospital. Apparently on arrival the patient looked well but prior to my evaluation the patient had a brief episode of seemingly being very short of breath. When I went to see her she looked extremely short of breath, to the point where she was not able to speak to me and with a heart rate on the monitor in the 140s.. However this resolved spontaneously and then she looked entirely well with a heart rate in the 60s only a couple of minutes later. The patient says that she often gets a sense that she has difficulty breathing in which she is unable to take a full breath. She does not have a history of asthma or other lung problems however. She is and lives with her . She has 3 young children. She is a nonsmoker. Omeprazole is her only oral medication. She has the Nexplanon device for control. Related Data Previous Rx's ?Medication ?Instructions ?Recorded cholecalciferol (vitamin D3) 1,250 1,250 mcg PO QWEEK 90 days #13 caps 09/07/24 mcg (50,000 unit) capsule omeprazole 20 mg capsule,delayed 20 mg PO DAILY 90 day s #90 caps 01/27/25 release propranolol 10 mg tablet 10 mg PO BID #60 tabs propranolol 10 mg tablet 10 mg PO BID #60 tabs Allergies Allergy/AdvReac Type Severity Reaction Status Date / Time No Known Allergies Allergy Verified 01/30/25 10:26 [facility] Past Medical History Medical History Anemia Surgical History History of esophagogastroduodenoscopy (EGD) Social History Social History Household Members: Spouse and Family Alcohol intake: never Patient Tobacco Use Status: Never used Tobacco Physical Exam ED Vital Signs: Vital Signs - 24 hr 01/30/25 10:27 01/30/25 10:30 01/30/25 11:27 Temperature 98.5 F Pulse Rate 64 56 Respiratory Rate 14 Blood Pressure 104/78 111/65 Pulse Oximetry 76 L 98 Oxygen Delivery Method Room Air Nasal Cannula Oxygen Flow Rate 6 01/30/25 11:27 01/30/25 11:28 01/30/25 12:00 Temperature 98.4 F Pulse Rate 66 85 55 Respiratory Rate 21 H Blood Pressure 112/66 106/59 L 103/52 L Pulse Oximetry 100 Oxygen Delivery Method Nasal Cannula Oxygen Flow Rate 6 01/30/25 14:19 01/30/25 14:22 Temperature 98.5 F 98.5 F Pulse Rate 69 69 Respiratory Rate 12 12 Blood Pressure 121/72 121/72 Pulse Oximetry 100 100 Oxygen Delivery Method Room Air Room Air Oxygen Flow Rate BMI result Body Mass Index 33.8 Const Other: When I first entered the patient's room she was awake and alert sitting up and seemed to be struggling to breathe. On the court recording monitor her heart rate was in the 140s. She would not answer my questions because she seemed too short of breath to answer my questions. Orientation/consciousness: patient oriented x3 [facility] Other: The face is symmetrical. ?Mucous membranes moist. Eyes Other: Pupils are round equal, conjunctivae are clear, extraocular movements intact Neck Neck: Yes normal visual inspection, Yes full ROM and Yes no JVD Resp Effort & Inspection: normal respiratory effort Auscultation: clear to auscultation bilaterally Cardio Other: No murmur heard Rate: regular rate Rhythm: regular rhythm Heart sounds: S1 normal heart sound present and S2 normal heart sound present GI Other: Abdomen is soft and nontender Skin Other: The skin is dry and unremarkable Neuro General: patient oriented x3, gait normal, tone normal, moves all extremities, no focal motor deficits and CN's II-XI intact bilaterally Extrem Other: There is no calf swelling or tenderness. No asymmetry. No peripheral edema. Medical Decision Making Medical Decision Making MDM Narrative: The patient is a 24-year-old female who describes having some intermittent symptoms of feeling short of breath for several months. She also describes that these symptoms have gotten much worse over the last week and that she had a syncopal episode when she went to her primary care doctor's office today. At that point an ambulance was called. I did not see her when she 1st arrived here in the emergency room. However when I walked into the room she looked as if she was struggling to breathe and she has a heart rate in the 140s. She did not seem able to talk at that time. However this dramatic condition resolved spontaneously within a minute or 2. At that point she looked entirely well and has a heart rate in the 60s. I was able to review the patient's telemetry monitoring during this episode: The above shows a summary of the patient's telemetry with evidence of a change in rhythm between 12:20 and 12:23. The change is characterized by obvious tachycardia. Below is a rhythm strip taken from the period of tachycardia at 12:23:11 I believe this rhythm strip shows sinus tachycardia at a rate of about 140 beats per minute. The patient has a an unremarkable chest x-ray. She has undetectable troponins. She has a normal proBNP. She has a an undetectable D-dimer. She has clear lungs on exam. My overall impression is that these are probably episodes of hyperventilation associated with sinus tachycardia. Otherwise she seems quite well. I think it would be reasonable to trial her on a small dose of propranolol and have her follow up with the regular doctor and refer her to Cardiology. The patient denies feeling under a great deal of stress or feeling that she is under a great deal of anxiety but she is the mother of 3 small children who was going to college and I think she is probably under quite a bit of stress. However there does not seem to be any indication for an evaluation by the care team. Lab Data 01/30/25 10:39 01/30/25 10:39 Labs: Lab Results 01/30/25 01/30/25 Range/Units 10:39 13:02 WBC 5.2 (4.8-10.8) X10*3/uL RBC 5.21 (4.20-5.50) X10*6/uL Hgb 15.1 (12.0-16.0) g/dl Hct 42.5 (37.0-47.0) % MCV 81.6 (80.0-98.0) fL MCH 29.0 (27.0-33.0) pg MCHC 35.5 H (31.0-35.0) g/dl RDW 14.1 (11.0-16.0) % Plt Count 283 (160-400) X10*3/uL MPV 10.1 (9.4-12.3) fL Immature Gran % (Auto) 0.2 (0.0-0.4) % Neut % (Auto) 37.0 L (45-73) % Lymph % (Auto) 53.0 H (20-40) % [place] % (Auto) 7.7 (2-11) % Eos % (Auto) 1.3 (0-4) % Baso % (Auto) 0.8 (0-2) % Lymph # (Auto) 2.8 (1.2-4.9) X10*3/uL [place] # (Auto) 0.4 (0.1-1.2) X10*3/uL Eos # (Auto) 0.1 (0.0-0.4) X10*3/uL Baso # (Auto) 0.0 (0.0-0.2) X10*3/uL Abs Immat Gran (auto) 0.01 (0.00-0.03) X10*3/uL Absolute Neuts (auto) 1.9 L (2.0-8.3) x10*3/uL Absolute Nucleated RBC 0.000 (0.0-0.012) X10*3/uL Nucleated RBC % (auto) 0.0 (0.0-0.2) /100WBC D-Dimer High Sensitivty < 150 NG/ML Sodium 141 (135-145) mmol/L Potassium 3.6 (3.3-5.1) mmol/L Chloride 113 H (96-108) mmol/L Carbon Dioxide 19 L (22-29) mmol/L Anion Gap 13 (12-20) BUN 11 (9-16) mg/dL Creatinine 0.66 (0.5-1.4) mg/dL Estim Creat Clear Calc 152.6 Estimated GFR > 60 Random Glucose 97 (60-115) mg/dL Calcium 9.5 (8.4-10.2) mg/dL Magnesium 1.9 (1.6-2.6) mg/dL Total Bilirubin 0.4 (0.0-1.0) mg/dL AST 19 (5-31) U/L ALT 20 (0-31) U/L Alkaline Phosphatase 107 (39-117) U/L Troponin I High Sens < 2.7 2.7 (<3.5-17.0) ng/L NT-Pro-B Natriuret Pep 90.2 (<300) pg/mL Total Protein 7.7 (6.5-8.0) g/dL Albumin 4.7 (3.5-5.0) g/dL TSH 1.70 (0.32-4.0) uIU/mL Beta HCG, Quant < 2 mIU/mL Independent Interpretation I performed an independent interpretation of an: EKG Interpretation: EKG at 10:42 shows normal sinus rhythm with a sinus arrhythmia at 66 beats per minute. It is a normal EKG. No change from previous. Discharge Plan Discharge Clinical Impression: Syncope, Shortness of breath, Acute hyperventilation Patient Disposition: Home, Self-Care Instructions: Hyperventilation (ED), Panic Attack (ED) Additional Instructions: Your testing in the emergency room today is very reassuring. I think that you were having episodes of hyperventilation. Episodes of hyperventilation can be very difficult to evaluate and manage. Hyperventilation can occur in the context of a panic attack. Sometimes an episode of hyperventilation and panic and operate together if you feel you are having trouble breathing. This may be what you are experiencing. I have sent a prescription for a medication called propranolol. Propranolol is a medication in the family of medications known as ?beta-blockers. ? Beta- blockers help keep your heart rate from going too fast. Sometimes a sense of a racing heartbeat can contribute to a sense of hyperventilation and panic. I would recommend starting this medication and taking a 2 times a day to begin with. You has been started on a low dose of this medication. Please contact your regular doctor's office on Saturday for a follow up appointment to discuss this condition further. Return to the emergency room if you are significantly worse. Prescriptions: New propranolol 10 mg tablet 10 mg PO BID Qty: 60 0RF propranolol 10 mg tablet 10 mg PO BID Qty: 60 0RF No Action cholecalciferol (vitamin D3) 1,250 mcg (50,000 unit) capsule 1,250 mcg PO QWEEK 90 Days Qty: 13 1RF omeprazole 20 mg capsule,delayed release(DR/EC) 20 mg PO DAILY 90 Days Qty: 90 1RF Referrals: Marielle Hayes MD [Primary Care Provider, Medical] Interventions: ED Discharge Assessment Last Done: 01/30/25 14:22 Discharge Date/Time: 01/30/25 14:27 Print Language: Other
[2025-01-30 13:34] LABS: NT Pro B Type Natriuretic Pept 90.2 pg/mL (<300); Troponin-I High Sensitivity 2.7 ng/L (<3.5-17.0)
[2025-01-30 13:39] LABS: D Dimer High Sensitivity < 150 NG/ML
[2025-01-30 14:21] LABS: Thyroid Stimulating Hormone 1.70 uIU/mL (0.32-4.0)
== END 2025-01-30 14:27 | disposition home or self-care (01) ==
PROVIDERS: Emergency Provider Emergency Medicine; PCP Family Medicine
DX: R55 Syncope and collapse (principal); R06.02 Shortness of breath; R06.4 Hyperventilation; R07.89 Other chest pain; I49.8 Other specified cardiac arrhythmias; Z79.899 Other long term (current) drug therapy
CPT/HCPCS: 36415; 71045; 80053; 83735; 83880; 84443; 84484; 84702; 85025; 85379; 93005; 99283; 99285

== ENCOUNTER → 2025-01-30 10:42 | Outpatient (BNV) | payer MEDICAID, SELFPAY | PROVIDERS: Emergency Provider Emergency Medicine; PCP Family Medicine; Visit Provider Internal Medicine Cardiovascular Disease | DX: R06.02 Shortness of breath (principal); R07.9 Chest pain, unspecified | CPT/HCPCS: 93010 ==

== ENCOUNTER → 2025-01-30 11:29 | Outpatient (BNV) | payer OTHER, MEDICAID, SELFPAY | PROVIDERS: Emergency Provider Emergency Medicine; PCP Family Medicine; Visit Provider Radiology Diagnostic Radiology | DX: R06.02 Shortness of breath (principal) | CPT/HCPCS: 71045 ==

== ENCOUNTER 2025-02-02 11:19 | Outpatient (REF) | payer MEDICAID, SELFPAY ==
--- OUTSIDE RECORDS SUMMARY | 2025-01-30 09:00 | XMS_ITS | Encounter Summary ---
Author Organization [employer] Address [address] [facility] 7t [place] [address] Care Team Providers Care Sulfuric Acid Plant Supervisor Name Role Phone Marielle Hayes MD Primary Care Provider [phone] Reason for Visit * Reason Comments Sore Throat Respiratory Distress Encounter Details Date Type Department Care Team ([facility] st Contact Info) Description 01/30/2025 9:00 AM EDT Office Visit [facility] [address] [place] [id number] Marielos Brown MD [address] [place] [address] Palpitations (Primary Dx); Near syncope; Difficulty breathing; [...] 9:17 AM EDT documented in this encounter Progress Notes * Marielos Brown MD - 01/30/2025 9:00 AM EDT SUBJECTIVE: David Lopez is a 24 y.o. year old female who presents for Walk In Center/SOB. Denies recent illness, injury, or hospitalization. Patient is here with her son Herve. Acute Concerns: Co PADILLA for aprox 3mo, it has been progressive to less than 1 block and even with house chores. It'sbeen lately associated to pleuritic chest pain radiated to upper chest and throat discomfort, she also co palpitation, dizziness and LIMA. This also happens at rest sometimes. No fever, chills, productive cough. While in the room, patient reported sudden onset of chest pressure radiated to her throat palpitations and dizziness. An irregular heart beat was auscultated and patient fell on the floor without hitting her head as provider was present to hold her. She became pale but kept asking for air throughout, oxygen was provided as O2 sat fell to 87% on room air, she was given 325 mg of aspirin, laid on the floor and legs were elevated. We called 911. Patient kept complaining of shortness of breath, herO2 sat slowly margarita up to 96% over approximately 2 minutes with 2li NC and she remained alert but somewhat confused for few minutes, then she was completely alert and gave us instructions to call her and spoke to her son who was taken to the administrative receptionist while we were attending his mom. Episodelasted approximately 3 to 5 minutes and EMS arrived, patient was sent to ED. Social History Social History Narrative Not on file Problem List[1] Family History[2] Review of Systems Constitutional: Negative for chills, fatigue and fever. HENT: Negative for congestion, ear pain, nosebleeds, rhinorrhea, sinus pressure, sore throat and trouble swallowing. Eyes: Negative for pain and discharge. Respiratory: Positive for cough and shortness of breath. Cardiovascular: Positive for palpitations. Negative for chest pain and leg swelling. Gastrointestinal: Negative for abdominal pain, blood in stool, constipation, diarrhea and nausea. Endocrine: Negative for polydipsia and polyuria. Genitourinary: Negative for dysuria, frequency, genital sores, pelvic pain and vaginal discharge. Musculoskeletal: Negative for back pain and neck pain. Skin: Negative for rash. Allergic/Immunologic: Negative for environmental allergies. Neurological: Positive for dizziness. Negative for seizures, weakness, light- headedness and headaches. Hematological: Negative for adenopathy. Psychiatric/Behavioral: Negative for agitation, behavioral problems, self-injury and suicidal ideas. OBJECTIVE: Vitals: 01/30/25 0917 BP: 120/71 Pulse: 58 Resp: 24 Temp: 98.9 ??F (37.2 ??C) SpO2: 99% Physical Exam HENT: Right Ear: Tympanic membrane and ear canal normal. Left Ear: Tympanic membrane and ear canal normal. Mouth/Throat: Mouth: Mucous membranes are moist. Pharynx: No oropharyngeal exudate or posterior oropharyngeal erythema. Eyes: Pupils: Pupils are equal, round, and reactive to light. Cardiovascular: Rate and Rhythm: Regular rhythm. Pulses: Normal pulses. Heart sounds: Normal heart sounds. No murmur heard. Pulmonary: Breath sounds: Normal breath sounds. Abdominal: General: Bowel sounds are normal. Palpations: Abdomen is soft. Tenderness: There is no abdominal tenderness. Musculoskeletal: General: Normal range of motion. Cervical back: Neck supple. Skin: General: Skin is warm. Neurological: General: No focal deficit present. Mental Status: She is alert and oriented to person, place, and time. Psychiatric: Mood and Affect: Mood normal. Behavior: Behavior normal. Encounter Date: 01/30/25 ECG 12 lead Narrative NSR at 82 bpm, normal axis. No ST/T abnormalities. She has a sinus arrhythmia Problem List Items Addressed This Visit Palpitations - Primary It's most likely paroxysmal A-fib or other type of arrhythmia. Patient needs to follow-up with PCP after ED discharge Relevant Orders ECG 12 lead (Completed) Near syncope Witnessed at the walk-in center while patient in the room. It seems to have been related to a cardiac arrhythmia, most likely paroxysmal A-fib. Patient was attended by our medical staff and stabilized as described above, EMS was called and sent via ambulance to ED Difficulty breathing Relevant Orders POCT Rapid Influenza B RODRIGUEZ ID NOW (Completed) POCT Rapid Influenza A RODRIGUEZ ID NOW (Completed) XR Chest 2 Views CBC auto differential Prothrombin Time-INR Partial Thromboplastin Time, Activated (APTT) TSH with Reflex to Free T4 Other Visit Diagnoses Sore throat Relevant Orders POCT Rapid Strep A RODRIGUEZ ID NOW (Completed) POCT Rapid Covid-19 RODRIGUEZ ID NOW (Completed) Follow Up: Medications Ordered Prior to Encounter[3] [1] Patient Active Problem List Diagnosis Iron deficiency anemia Vitamin D deficiency Upper back pain on right side Encounter for health-related screening Lumbar back pain with radiculopathy affecting lower extremity History of gestational diabetes Pelvic somatic dysfunction UTI symptoms Dizziness Palpitations Near syncope Difficulty breathing [2] No family history on file. [3] Current Outpatient Medications on File Prior to Visit Medication Sig Dispense Refill Aspirin Low Dose 81 MG EC tablet TAKE 2 TABLETS BY MOUTH DAILY AT BEDTIME cefuroxime (Ceftin) 500 MG tablet Take 500 mg by mouth 2 times daily. 7 days cholecalciferol (Vitamin D-3) 50 MCG (2000 UT) [...] Reported on 02/14/2024) 60 suppository 1 ibuprofen 200 MG tablet Take 200 mg by mouth if needed for mild pain. multivitamin () 27-0.8 MG tablet Take 1 tablet by mouth in the morning. (Patient not taking: Reported on 02/14/2024) 120 tablet 1 ondansetron (Zofran) 4 MG tablet Take 1 tablet (4 mg) by mouth every 8 (eight) hours if needed for nausea or vomiting for up to 12 doses. 10 tablet 0 phenazopyridine (Pyridium) 200 MG tablet Take 200 mg by mouth if needed in the morning, at noon, and at bedtime for bladder spasms. 2 dayss polyethylene glycol, PEG, 3350 (Glycolax) 17 GM/SCOOP [...] facility-administered medications on file prior to visit. documented in this encounter Miscellaneous Notes * Assessment & Plan Note - Marielos Brown MD - 01/30/2025 12:34 PM EDT Associated Problem(s): Near syncope Witnessed at the walk-in center while patient in the room. It seems to have been related to a cardiac arrhythmia, most likely paroxysmal A-fib. Patient was attended by our medical staff and stabilized as described above, EMS was called and sent via ambulance to ED * Assessment & Plan Note - Marielos Brown MD - 01/30/2025 12:32 PM EDT Associated Problem(s): Palpitations It's most likely paroxysmal A-fib or other type of arrhythmia. Patient needs to follow-up with PCP after ED discharge documented in this encounter Plan of Treatment Upcoming Encounters Date Type Department Care Team (Late st Contact Info) Description 03/02/2025 8:45 AM EDT Office Visit [facility] [address] [place] [address] Celso Gil Scheduled Orders Name Type Priority [...] Procedure Name Priority Date/Time Associated Diagnosis Comments ECG 12-LEAD Routine 01/30/2025 12:28 PM EDT Palpitations POCT INFLUENZA B (ID NOW RAPID MOLECULAR) Routine 01/30/2025 9:29 AM EDT Difficulty breathing POC RODRIGUEZ ID NOW STREP A Routine 01/30/2025 9:29 AM EDT Sore throat POCT INFLUENZA A (ID NOW RAPID MOLECULAR) Routine 01/30/2025 9:28 AM EDT Difficulty breathing POCT COVID-19 AG RODRIGUEZ ID NOW Routine 01/30/2025 9:27 AM EDT Sore throat documented in this encounter Results * ECG 12 lead (01/30/2025 12:28 PM EDT) Narrative Marielos Brown MD - 01/30/2025 12:28 PM EDT NSR at 82 bpm, normal axis. No ST/T abnormalities. She has a sinus arrhythmia us Marielos Brown MD ECG ORDERABLES Final Re sult * POCT Rapid Strep A RODRIGUEZ ID NOW (01/30/2025 9:29 AM EDT) Rapid Strep A Screen Negative Negative, None Detected QC Media Lot # [id number] Lot# Expiration Date Swab 01/30/2025 9:29 AM EDT Marielos Brown MD POINT OF CARE TEST ENTER /EDIT ORDERABLES Final Result * POCT Rapid Influenza B RODRIGUEZ ID NOW (01/30/2025 9:29 AM EDT) Pathologist [facility] Influenza B Negative Negative, Indeterminate [facility] QC Media Lot # [id number] [facility] Lot# Expiration Date [facility] Swab 01/30/2025 9:29 AM EDT Marielos Brown MD POINT OF CARE TEST ENTER /EDIT ORDERABLES Final Result Performing Organization Address [facility]/ZIP Co de Phone Number [facility] [address] [place] [phone] * POCT Rapid Influenza A RODRIGUEZ ID NOW (01/30/2025 9:28 AM EDT) Pathologist [facility] Influenza A Negative Negative, Indeterminate [facility] QC Media Lot # [id number] [facility] Lot# Expiration Date [facility] Swab 01/30/2025 9:28 AM EDT Marielos Brown MD POINT OF CARE TEST ENTER /EDIT ORDERABLES Final Result Performing Organization Address [facility] Co de Phone Number [facility] [address] [place] [phone] * POCT Rapid Covid-19 RODRIGUEZ ID NOW (01/30/2025 9:27 AM EDT) Pathologist [facility] Coronavirus Antigen PCR Negative Negative, Indeterminate, None Detected, Invalid, Specimen unsatisfactory for evaluation, Weakly Positive, 2+ QC Media Lot # [id number] Lot# Expiration Date Swab 01/30/2025 9:27 AM EDT Marielos Brown MD POINT OF CARE TEST ENTER /EDIT ORDERABLES Final Result documented in this encounter Visit Diagnoses Diagnosis Palpitations- Primary Near syncope Difficulty breathing Other dyspnea and respiratory abnormality Sore throat Acute pharyngitis documented in this encounter Additional Health Concerns Assessment Noted Time PHQ-9 Depression Total Score: 0 02/10/20 9:50 AM EDT documented as of this encounter Care Teams Sulfuric Acid Plant Supervisor Relationship Specialty Start Date End Date Marielle Hayes MD [address] [place] [address] PCP - General Family Medicine 01/25/22 marielle Hayes Software Configuration AnalystSheet Ironworker 07/11/23 Bryan Vyas Software Configuration AnalystSheet Ironworker 11/05/23 documented as of this encounter
--- OUTSIDE RECORDS SUMMARY | 2025-02-02 11:15 | XMS_ITS | Encounter Summary ---
Author Organization [employer] Address [address] [place] [phone] Care Team Providers Care Foreign Language Instructor Name Role Phone Marielle Hayes MD Primary Care Provider [phone] Reason for Referral * Consultation (Routine) - Pending Review Specialty Diagnoses / Procedures Referred By Chela betancur Referred To Contact Cardiology Diagnoses Palpitations Near syncope Difficulty breathing Bora Gil MD [address] [place] [address] Phone: tel: fax: Referral ID Status Reason Start Date Expiration Date Visits Requested Visits Authorized [id number] Pending Review Specialty Services Required 02/02/2025 02/02/2026 1 1 * Imaging (Routine) - Pending Review Specialty Diagnoses / Procedures Referred By Chela betancur Referred To Contact Cardiology Diagnoses Palpitations Near syncope Difficulty breathing Procedures Transthoracic Echo (TTE) Complete Bora Gil MD [address] [place] [address] Phone: tel: fax: [address] Phone: tel: fax: Referral ID Status Reason Start Date Expiration Date Visits Requested Visits Authorized [id number] Pending Review Perform Procedure 02/02/2025 02/02/2026 1 1 * Consultation (Routine) - Pending Review Specialty Diagnoses / Procedures Referred By Chela betancur Referred To Contact Cardiology Diagnoses Palpitations Near syncope Difficulty breathing Bora Gil MD [address] [place] [address] Phone: tel: fax: Referral ID Status Reason Start Date Expiration Date Visits Requested Visits Authorized [id number] Pending Review Specialty Services Required 02/02/2025 02/02/2026 1 1 * Cardiology (Routine) - Pending Review Specialty Diagnoses / Procedures Referred By Chela betancur Referred To Contact Cardiology Diagnoses Palpitations Near syncope Difficulty breathing Procedures Holter monitor - 48 hour Bora Gil MD [address] [place] [address] Phone: tel: fax: [address] Phone: tel: fax: Referral ID Status Reason Start Date Expiration Date V isits Requested Visits Authorized [id number] Pending Review 02/02/2025 02/02/2026 1 1 Reason for Visit * Reason Comments ER Follow-up Encounter Details Date Type Department Care Team (Late st Contact Info) Description 02/02/2025 11:15 AM EDT Office Visit [facility] [address] [place] [address] Bora Gil MD [address] [place] [address] [phone] Palpitations (Primary Dx); Near syncope; Difficulty breathing Social History Tobacco Use Types Packs/Day Years [...] Sign Reading Time Taken Comments Blood Pressure 126/73 02/02/2025 10:56 AM EDT Pulse 69 02/02/2025 10:56 AM EDT Temperature - - Respiratory Rate 20 02/02/2025 10:56 AM EDT Oxygen Saturation 98% 02/02/2025 10:56 AM EDT Inhaled Oxygen Concentration - - Weight 86.2 kg (190 lb) 02/02/2025 10:56 AM EDT Height 167.6 cm (5' 6 ) 02/02/2025 10:56 AM EDT Body Mass Index 30.67 02/02/2025 10:56 AM EDT documented in this encounter Progress Notes * Bora Gil MD - 02/02/2025 11:15 AM EDT SUBJECTIVE David Lopez is a 24 y.o. female who presents for ER Follow-up. ER Follow-up Pertinent negatives include no chills, diaphoresis, fatigue or joint swelling. ED evaluation on 01/30/25 at [facility] after a syncopal episode while she was beeing evaluated at [facility] Walk in clinic. H/o SOB for several months getting worse. Associated w/ palpitations. Transported to the hospital by Ambulance. Had another episode in the ED. Placed on telemetry: noted to have intermittent tachycardia. Chest x-ray: unremarkable, Trop : neg Normal Pro BNP Undetectable D Dimers Impression: hyperventilation associated w/ sinus tachycardia. Started on Propranolol 10 mg bid w/ partial improvement. Pt still has intermittent SOB since discharge. Problem List[1] Allergies[2] Medications Ordered Prior to Encounter[3] Review of Systems Constitutional: Negative for chills, diaphoresis and fatigue. Respiratory: Positive for shortness of breath. Cardiovascular: Positive for palpitations. Gastrointestinal: Negative for anal bleeding, blood in stool and constipation. Musculoskeletal: Negative for back pain, gait problem and joint swelling. OBJECTIVE Vitals: 02/02/25 1056 BP: 126/73 BP Location: Left arm Patient Position: Sitting BP Cuff Size: Adult long Pulse: 69 Resp: 20 SpO2: 98% Weight: 190 lb (86.2 kg) Height: 5' 6 (1.676 m) Physical Exam Constitutional: General: She is not in acute distress. Appearance: Normal appearance. She is not ill-appearing, toxic-appearing or diaphoretic. Cardiovascular: Rate and Rhythm: Normal rate and regular rhythm. Pulmonary: Effort: Pulmonary effort is normal. Abdominal: Palpations: Abdomen is soft. Neurological: General: No focal deficit present. Mental Status: She is alert. Assessment/Plan Assessment/Plan Diagnoses and all orders for this visit: Palpitations Comments: labs ordered differential discussed ED precautions discussed Orders: - Holter monitor - 48 hour; Future - Referral to Cardiology; Future - Transthoracic Echo (TTE) Complete; Future - Referral to Cardiology; Future Near syncope - Holter monitor - 48 hour; Future - Referral to Cardiology; Future - Transthoracic Echo (TTE) Complete; Future - Referral to Cardiology; Future Difficulty breathing - Holter monitor - 48 hour; Future - Referral to Cardiology; Future - Transthoracic Echo (TTE) Complete; Future - Referral to Cardiology; Future [1] Patient Active Problem List Diagnosis Iron deficiency anemia Vitamin D deficiency Upper back pain on right side Encounter for health-related screening Lumbar back pain with radiculopathy affecting lower extremity History of gestational diabetes Pelvic somatic dysfunction UTI symptoms Dizziness Palpitations Near syncope Difficulty breathing [2] No Known Allergies [3] Current Outpatient Medications on File Prior [...] prior to visit. documented in this encounter Plan of Treatment Upcoming Encounters Date Type Department Care Team (Late st Contact Info) Description 03/02/2025 8:45 AM EDT Office Visit [facility] [address] [place] [address] Celso Gil Scheduled Orders Name Type Priority Associated Diagnoses Order Schedule Holter monitor - 48 hour Cardiac Services Routine Palpitations Near syncope Difficulty breathing Expected: 02/02/2025 (Approximate), Expires: 02/02/2027 Transthoracic Echo (TTE) Complete Echocardiography Routine Palpitations Near syncope Difficulty breathing Expected: 02/02/2025 (Approximate), Expires: 02/02/2027 Scheduled Referrals Name Type Priority Associated Diagnoses Order Schedule Referral to Cardiology Outpatient Referral Routine Palpitations Near syncope Difficulty breathing Expected: 02/02/2025 (Approximate), Expires: 02/02/2026 Referral to Cardiology Outpatient Referral Routine Palpitations Near syncope Difficulty breathing Expected: 02/02/2025 (Approximate), Expires: 02/02/2026 documented as of this encounter Visit Diagnoses Diagnosis Palpitations- Primary Near syncope Difficulty breathing Other dyspnea and respiratory abnormality documented in this encounter Additional Health Concerns Assessment Noted Time PHQ-9 Depression Total Score: 0 02/10/20 24 9:50 AM EDT documented as of this encounter Care Teams Foreign Language Instructor Relationship Specialty Start Date End Date Hayes, Marielle, MD [address] [place] [address] PCP - General Family Medicine 01/25/22 marielle Hayes Parts Department SupervisorRespiratory Scientist 07/11/23 Bryan Vyas Parts Department SupervisorRespiratory Scientist 11/05/23 documented as of this encounter
--- OUTSIDE RECORDS SUMMARY | 2025-02-02 12:48 | XMS_ITS | Clinical Summary ---
Author Organization [facility] Address [address] [place] [address] Phone Care Team Providers Care Financial Intern Name Role Phone Unavailable Primary Care Provider [...]
--- OUTSIDE RECORDS SUMMARY | 2025-02-02 12:48 | XMS_ITS | Encounter Summary ---
Author Organization [employer] Address [address] [facility] [address] [place] [address] Care Team Providers Care Red Leader Name Role Phone Marielle Hayes MD Primary Care Provider [phone] Encounter Details Date Type Department Care Team [...] [facility] [address] [place] [address] Celso Gil documented as of this encounter Procedures Procedure Name Priority Date/Time Associated Diagnosis Comments XR CHEST 1 VIEW Routine 01/30/2025 12:06 PM EDT IRON AND TOTAL IRON BINDING CAPACITY Routine 01/29/2025 9:05 AM EDT FERRITIN Routine 01/29/2025 9:05 AM EDT documented in this encounter Results * XR Chest 1 View (01/30/2025 12:06 PM EDT) Anatomical Region Laterality Modality Chest Radiographic Bailee ging 01/30/2025 12:0 6 PM EDT Narrative 01/30/2025 12:07 PM EDT [address] [address] XRay Report Signed Patient: David Silva MR#: [id number] : 2000 Acct:[id number] Age/Sex: 24 / F ADM Date: 01/30/25 Loc: .ED Attending Dr: Ordering Physician: Generic ED Physician Date of Service: 01/30/25 Procedure(s): XR chest 1V Accession Number(s): [id number] cc: Generic ED Physician; Marielle Hayes MD Reason for Exam: sob CLINICAL HISTORY: sob 1 view chest x-ray Comparison: CR/KY/SR - XR CHEST 2 VIEWS - 03/24/24 10:47 EST Findings: No consolidation or effusion. Normal size heart. No acute fracture. IMPRESSION: 1. No acute findings. This document has been electronically signed by: Dc Thomas MD on 01/30/2025 12:06:26 Dictated By: Dc Thomas MD Signed By: <Electronically signed by Dc Thomas MD in OV> 01/30/251206 DD/ 05 TD/TT: 01/30/251205 [employer] Executive Director: Procedure Note Donotuseinterpreter, Image - 01/30/2025 [place] [address] XRay Report Signed Patient: David SilvaMR#: [id number] : 2000Acct:[id number] Age/Sex: 24 / FADM Date: 01/30/25 Loc: .ED Attending Dr: Ordering Physician: Generic ED Physician Date of Service: 01/30/25 Procedure(s): XR chest 1V Accession Number(s): [id number] cc: Generic ED Physician; Marielle Hayes MD Reason for Exam: sob CLINICAL HISTORY: sob 1 view chest x-ray Comparison: CR/[place]/SR - XR CHEST 2 VIEWS - 03/24/24 10:47 EST Findings: No consolidation or effusion. Normal size heart. No acute fracture. IMPRESSION: 1. No acute findings. This document has been electronically signed by: Dc Thomas MD on 01/30/2025 12:06:26 Dictated By: Dc Thomas MD Signed By: <Electronically signed by Dc Thomas MD in OV> 01/30/251206 DD/ 05 TD/TT: 01/30/251205 [employer] Executive Director: [facility] External Provider IMG XR PROCEDURES Edited Result - Final * Ferritin (01/29/2025 9:05 AM EDT) Ferritin 73 10 - 122 ng/mL [facility] 01/29/2025 9:05 AM EDT 01/29/2025 9:05 AM EDT us Generic External Data Provider LAB BLOOD ORDERAB LES Final Result Performing Organization Address [facility] Co de Phone Number [facility] [address] [place] [phone] * Iron And Total Iron Binding Capacity (01/29/2025 9:05 AM EDT) Iron 81 30 - 160 mcg/dL [facility] Total Iron Binding Capacity 230 228 - 428 mcg/dL [facility] Percent Iron Saturation 35 15 - 50 % [facility] Unsaturated Iron Binding 149 ug/dL [facility] 01/29/2025 9:05 AM EDT 01/29/2025 9:05 AM EDT Generic External Data Provider LAB BLOOD ORDERAB LES Final Result Performing Organization Address [facility] Co de Phone Number [facility] [address] [place] [phone] documented in this encounter Visit Diagnoses Not on filedocumented in this encounter Additional Health Concerns Assessment Noted Time PHQ-9 Depression Total Score: 0 02/10/20 24 9:50 AM EDT documented as of this encounter Care Teams Red Leader Relationship Specialty Start Date End Date Marielle Hayes MD [address] [place] [address] PCP - General Family Medicine 01/25/22 marielle Hayes Roll Forming Machine Set Up OperatorBoot Trimmer 07/11/23 Bryan Vyas Roll Forming Machine Set Up OperatorBoot Trimmer 11/05/23 documented as of this encounter
--- OUTSIDE RECORDS SUMMARY | 2025-02-02 12:48 | XMS_ITS | Encounter Summary ---
Author Organization [employer] Address [address] [facility] [address] [place] [address] Care Team Providers Care Graduate School Dean Name Role Phone Marielle Hayes MD Primary Care Provider [phone] Renate Lyman RN Unavailable [phone] Carmencita Sierra Unavailable Reason for Visit * Reason Onset Date Comments Nurse Triage 12/13/2023 Encounter Details Date Type Department Care Team (Late st Contact Info) Description 12/13/2023 Telephone [facility] [address] [place] [address] Marielle Hayes MD [address] [place], [place] [phone] Nurse Triage Social History Tobacco Use Types [...] Upcoming Encounters Date Type Department Care Team ([facility] st Contact Info) Description 03/02/2025 8:45 AM EDT Office Visit [facility] [address] [place] [address] Celso Gil documented as of this encounter Visit Diagnoses Not on filedocumented in this encounter Care Teams Graduate School Dean Relationship Specialty Start Date End Date Marielle Hayes MD [address] [place] [address] PCP - General Family Medicine 01/25/22 Renate Lyman RN [address] [place] [address] Registered Nurse Family Medicine 09/14/24 10/08/24 Carmencita Sierra 09/14/24 10/08/24 marielle Hayes Web FeederShoe Laster 07/11/23 Bryan Vyas Web FeederShoe Laster 11/05/23 documented as of this encounter
--- OUTSIDE RECORDS SUMMARY | 2025-02-02 12:48 | XMS_ITS | Encounter Summary ---
Author Organization [email or web address] Address [address] [facility] [address] [place] [address] Care Team Providers Care Ceramic Sprayer Name Role Phone Marielle Hayes MD Primary Care Provider [phone] Encounter Details Date Type Department Care Team (Late st Contact Info) Description 01/30/2025 Orders Only GENERIC EXTERNAL DATA DEPARTMENT Provider, [...] Description 03/02/2025 8:45 AM EDT Office Visit [facility] [address] [place] [address] Celso Gil documented as of this encounter Procedures Procedure Name Priority Date/Time Associated Diagnosis Comments D DIMER HIGH SENSITIVITY Routine 01/30/2025 1:02 PM EDT HIGH SENSITIVITY TROPONIN I Routine 01/30/2025 1:02 PM EDT NT-PROBNP Routine 01/30/2025 1:02 PM EDT documented in this encounter Results * D Dimer High Sensitivity (01/30/2025 1:02 PM EDT) D Dimer High Sensitivity <150 NG/ML [facility] Comment:D-DIMER HS REFERENCE RANGENote: Our assay reports D-Dimer Units (D- DU).The cut-off value for venous thromboembolic (VTE) disease is230 ng/mL. This value has a very high negative predictivevalue when the patient has a low to moderate clinicalprobability of VTE.The upper limit of normal is 243 ng/mL. 01/30/2025 1:02 PM EDT 01/30/2025 1:05 PM EDT us Generic External Data Provider LAB BLOOD ORDERAB LES Final Result Performing Organization Address City/State/[facility] de Phone Number [facility] [address] [place] [phone] * High Sensitivity Troponin I (01/30/2025 1:02 PM EDT) TROPONIN I HIGH SENSITIVITY 2.7 <3.5 - 17.0 ng/L [facility] Comment:The Mendoza high sens itivity Troponin-I results should beused in conjunction with other diagnostic information suchas ECG, clinical observations and information, and patientsymptoms to aid in the diagnosis of IL. 01/30/2025 1:02 PM EDT 01/30/2025 1:05 PM EDT Generic External Data Provider LAB BLOOD ORDERAB LES Final Result Performing Organization Address [facility] [address] [place] [phone] * NT-proBNP (01/30/2025 1:02 PM EDT) Pathologist [facility] NT-proBNP 90.2 <300 pg/mL [facility] Comment:Reference Range:Age Group (years) NT-proBNP (pg/ml) InterpretationAll <300 Negative: HF unlikelyFor patients presenting to the ED with clinical suspicion ofnew onset or worsening HF, see below:18 to <50 >299.9 to <450.0 Grayzone: [id number] to 75 >299.9 to <900.0 other causes of>75 >299.9 to <1800.0 NT-proBNP [id number] to <50 >449.9 Positive: HF [id number] >899.9>75 >1799.9Note: Elevated NT-proBNP levels should be interpreted inthe context of other clinical information. 01/30/2025 1:02 PM EDT 01/30/2025 1:05 PM EDT us Generic External Data Provider LAB BLOOD ORDERAB LES Final Result Performing Organization Address [facility] de Phone Number [facility] [address] [place] [phone] documented in this encounter Visit Diagnoses Not on filedocumented in this encounter Additional Health Concerns Assessment Noted Time PHQ-9 Depression Total Score: 0 02/10/20 24 9:50 AM EDT documented as of this encounter Care Teams Ceramic Sprayer Relationship Specialty Start Date End Date Marielle Hayes MD [address] [place] [address] PCP - General Family Medicine 01/25/22 marielle Hayes Clinical Care ManagerTransportation Engineer 07/11/23 Bryan Vyas Clinical Care ManagerTransportation Engineer 11/05/23 documented as of this encounter
--- OUTSIDE RECORDS SUMMARY | 2025-02-02 12:48 | XMS_ITS | Encounter Summary ---
Author Organization [employer] Address [address] [facility] [address] [place] [address] Care Team Providers Care Kiln Pusher Name Role Phone Marielle Hayes MD Primary Care Provider [phone] Encounter Details Date Type Department Care Team (Latest Contact Info) Description 02/02/2025 Travel Social History Tobacco Use Types Packs/Day [...] Description 03/02/2025 8:45 AM EDT Office Visit [facility] [address] [place] [address] Celso Gil documented as of this encounter Visit Diagnoses Not on filedocumented in this encounter Additional Health Concerns Assessment Noted Time PHQ-9 Depression Total Score: 0 02/10/20 9:50 AM EDT documented as of this encounter Care Teams Kiln Pusher Relationship Specialty Start Date End Date Marielle Hayes MD [address] [place] [phone] PCP - General Family Medicine 01/25/22 marielle Hayes Stereo Plotter OperatorTechnical Sme 07/11/23 Bryan Vyas Stereo Plotter OperatorTechnical Sme 11/05/23 documented as of this encounter
--- OUTSIDE RECORDS SUMMARY | 2025-02-02 12:48 | XMS_ITS | Clinical Summary ---
Author Organization [employer] Address 75 [facility] 7 [place] [address] Care Team Providers Care Treating Plant Supervisor Name Role Phone Marielle Hayes MD Primary Care Provider [phone] Allergies No known active allergies Medications simethicone [...] Problem Noted Date Diagnosed Date Palpitations 01/30/2025 Assessment & Plan (01/30/2025 12:32 PM EDT): It's most likely paroxysmal A-fib or other type of arrhythmia. Patient needs to follow-up with PCP after ED discharge Near syncope 01/30/2025 Assessment & Plan (01/30/2025 12:58 PM EDT): Witnessed at the walk-in center while patient in the room. It seems to have been related to a cardiac arrhythmia, most likely paroxysmal A-fib. Patient was attended by our medical staff and stabilized as described above, EMS was called and sent via ambulance to ED Difficulty breathing 01/30/2025 UTI symptoms 07/08/2024 Assessment [...] Encounters Date Type Department Care Team Description 02/02/2025 11:15 AM EDT Office Visit [facility] [address] [place] [address] Bora Gil MD Palpitations (Primary Dx); Near syncope; Difficulty breathing 02/02/2025 Travel 01/30/2025 9:00 AM EDT Office Visit [facility] [address] [place] [address] Marielos Brown MD Palpitations (Primary Dx); Near syncope; Difficulty breathing; Sore throat 01/30/2025 Orders Only GENERIC EXTERNAL DATA DEPARTMENT Provider, Generic External Data 01/30/2025 Telephone [facility] MEDICINE [address] [place] [address] Jaimee Ellis RN RAPID ASSIST 01/30/2025 Travel 01/29/2025 Orders Only GENERIC EXTERNAL DATA DEPARTMENT Provider, Generic External Data 01/18/2025 Results Follow-Up [facility] [address] [place] [address] Huan Kelly MD Helicobacter pylori Antigen, EIA, Stool, POCT , urine manually resulted 01/12/2025 9:00 AM EDT Office Visit [facility] [address] [address] Huan Kelly MD Epigastric pain (Primary Dx) [...] housing situation today? I have adithya tayla 02/10/[address] you li [...] Pulse 69 02/02/2025 10:56 AM EDT Temperature 37.2 C (98.9 F) 01/30/2025 9:17 AM EDT Respiratory Rate 20 02/02/2025 10:56 AM EDT Oxygen Saturation 98% 02/02/2025 10:56 AM EDT Inhaled Oxygen Concentration - - Weight 86.2 kg (190 lb) 02/02/2025 10:56 AM EDT Height 167.6 cm (5' 6 ) 02/02/2025 10:56 AM EDT Body Mass Index 30.67 02/02/2025 10:56 AM EDT Plan of Treatment Upcoming Encounters Date Type Department Care Team (Late st Contact Info) Description 03/02/2025 8:45 AM EDT Office Visit [facility] AD[facility] D[facility] [address] [place] [address] Celso Gil Health Maintenance Due Date Last Done Comments Disability Screening 2000 Alcohol/Substance Use Screening 2012 Family Planning (PISQ) 2015 COVID-19 Vaccine ( - 2023-2 5 season) 2025 Influenza Vaccine (#1) 2025 Dental X-Ray: Bitewings 01/29/2025 01/29/2024 Depression Screening 02/09/2025 02/10/2024, 01/04/2023 HPV Vaccines (1 - 3-dose series) 02/09/2025 Postponed from 2015 (Patient Refused) SDOH Screening 02/09/2025 02/10/2024 Dental Oral Exam 02/18/2025 08/18/2024, 01/29/2024 Dental Prophylaxis 02/18/2025 08/18/2024, 02/14/2024 Pap Smear 06/25/2025 06/25/2022 Diabetes: Hemoglobin A1C 07/08/2025 025, 01/27/2024 Tobacco Screening 02/02/2026 02/02/2025 Dental X-Ray: Full Mouth 01/29/2027 024, 11/26/2023 [...] EDT NT-PROBNP Routine 01/30/2025 1:02 PM EDT ECG 12-LEAD Routine 01/30/2025 12:28 PM EDT Palpitations XR CHEST 1 VIEW Routine 01/30/2025 12:06 PM EDT POC RODRIGUEZ ID NOW STREP A Routine [...] Recently Relevant to Health Maintenance Results * D Dimer High Sensitivity (01/30/2025 1:02 PM EDT) D Dimer High Sensitivity <150 NG/ML [facility] Comment:D-DIMER HS REFERENCE RANGENote: Our [...] Final Result Performing Organization Address [facility] Co de Phone Number [facility] [address] [place] [phone] * High Sensitivity Troponin I (01/30/2025 1:02 PM EDT) TROPONIN I HIGH SENSITIVITY 2.7 <3.5 - 17.0 ng/L [facility] Comment:The Rodriguez high sens itivity Troponin-I results should beused in conjunction with other diagnostic information suchas ECG, clinical observations and information, and patientsymptoms to aid in the diagnosis of VT. 01/30/2025 1:02 PM EDT 01/30/2025 1:05 PM EDT Generic External Data Provider LAB BLOOD ORDERAB LES Final Result Performing Organization Address [facility] Number [facility] [address] [place] [phone] * NT-proBNP (01/30/2025 1:02 PM EDT) NT-proBNP 90.2 <300 pg/mL [facility] Comment:Reference Range:Age Group (years) NT-proBNP (pg/ml) InterpretationAll <300 Negative: HF unlikelyFor patients presenting to the ED with clinical suspicion ofnew onset or worsening HF, see below:18 to <50 >299.9 to <450.0 Grayzone: [id number] to 75 >299.9 to <900.0 other causes of>75 >299.9 to <1800.0 NT-proBNP dqmeczsck16 to <50 >449.9 Positive: HF rrwohh81-50 >899.9>75 >1799.9Note: Elevated NT-proBNP levels should be interpreted inthe context of other clinical information. 01/30/2025 1:02 PM EDT 01/30/2025 1:05 PM EDT us Generic External Data Provider LAB BLOOD ORDERAB LES Final Result [facility] [address] [place] [phone] * ECG 12 lead (01/30/2025 12:28 PM EDT) Narrative Marielos Brown MD - 01/30/2025 12:28 PM EDT NSR at 82 bpm, normal axis. No ST/T abnormalities. She has a sinus arrhythmia us Marielos Brown MD ECG ORDERABLES Final Re sult * XR Chest 1 View (01/30/2025 12:06 PM EDT) Anatomical Region Laterality Modality Chest Radiographic Bailee ging 01/30/2025 12:0 6 PM EDT Narrative 01/30/2025 12:07 PM EDT [address] [address] XRay Report Signed Patient: David Silva MR#: [id number] : 2000 Acct:[id number] Age/Sex: 24 / F ADM Date: 01/30/25 Loc: .ED Attending Dr: Ordering Physician: Generic ED Physician Date of Service: 01/30/25 Procedure(s): XR chest 1V Accession Number(s): [id number] cc: Generic ED Physician; Marielle Hayes MD Reason for Exam: sob CLINICAL HISTORY: sob 1 view chest x-ray Comparison: CR/IA/SR - XR CHEST 2 VIEWS - 03/24/24 10:47 EST Findings: No consolidation or effusion. Normal size heart. No acute fracture. IMPRESSION: 1. No acute findings. This document has been electronically signed by: Dc Thomas MD on 01/30/2025 12:06:26 Dictated By: Dc Thomas MD Signed By: <Electronically signed by Dc Thomas MD in OV> 01/30/25 1207 DD/ 1206 TD/TT: 01/30/25 120 Rn First Assistant: Procedure Note Gem, Image - 01/30/[address] [address] XRay Report Signed Patient: David SilvaMR#: [id number] : 2000Acct:[id number] Age/Sex: 24 / FADM Date: 01/30/25 Loc: HO.ED Attending Dr: Ordering Physician: Generic ED Physician Date of Service: 01/30/25 Procedure(s): XR chest 1V Accession Number(s): [id number] cc: Generic ED Physician; Marielle Hayes MD Reason for Exam: sob CLINICAL HISTORY: sob 1 view chest x-ray Comparison: CR/IA/SR - XR CHEST 2 VIEWS - 03/24/24 10:47 EST Findings: No consolidation or effusion. Normal size heart. No acute fracture. IMPRESSION: 1. No acute findings. This document has been electronically signed by: Dc Thomas MD on 01/30/2025 12:06:26 Dictated By: Dc Thomas MD Signed By: <Electronically signed by Dc Thomas MD in OV> 01/30/25 1207 DD/ 1206 TD/TT: 01/30/251205 Rn First Assistant: [facility] External Provider IMG XR PROCEDURES Edited Result - Final * POCT Rapid Influenza B RODRIGUEZ ID NOW (01/30/2025 9:29 AM EDT) Influenza B Negative Negative, Indeterminate [facility] QC Media Lot # [id number] [facility] Lot# Expiration Date [facility] Swab 01/30/2025 9:29 AM EDT Marielos Brown MD POINT OF CARE TEST ENTER /EDIT ORDERABLES Final Result Performing Organization Address City/[facility]/ZIP Co de Phone Number [facility] [address] [place] [phone] * POCT Rapid Strep A RODRIGUEZ ID NOW (01/30/2025 9:29 AM EDT) [facility] Rapid Strep A Screen Negative Negative, None Detected QC Media Lot # [id number] Lot# Expiration Date Swab 01/30/2025 9:29 AM EDT Marielos Brown MD POINT OF CARE TEST ENTER /EDIT ORDERABLES Final Result * POCT Rapid Influenza A RODRIGUEZ ID NOW (01/30/2025 9:28 AM EDT) [facility] Influenza A Negative Negative, Indeterminate [facility] QC Media Lot # [id number] [facility] Lot# Expiration Date , [facility] Swab 01/30/2025 9:28 AM EDT Marielos Brown MD POINT OF CARE TEST ENTER /EDIT ORDERABLES Final Result Performing Organization Address [facility] Co de Phone Number [facility] [address] [place] [phone] * POCT Rapid Covid-19 RODRIGUEZ ID NOW (01/30/2025 9:27 AM EDT) [facility] Coronavirus Antigen PCR Negative Negative, Indeterminate, None Detected, Invalid, Specimen unsatisfactory for evaluation, Weakly Positive, 2+ QC Media Lot # [id number] Lot# Expiration Date ,026 Swab 01/30/2025 9:27 AM EDT Marielos Brown MD POINT OF CARE TEST ENTER /EDIT ORDERABLES Final Result * Iron And Total Iron Binding Capacity (01/29/2025 9:05 AM EDT) Iron 81 30 - 160 mcg/dL [facility] Total Iron Binding Capacity 230 228 - 428 mcg/dL [facility] Percent Iron Saturation 35 15 - 50 % [facility] Unsaturated Iron Binding 149 ug/dL [facility] 01/29/2025 9:05 AM EDT 01/29/2025 9:05 AM EDT us Generic External Data Provider LAB BLOOD ORDERAB LES Final Result Performing Organization Address City/[facility]/ZIP Co de Phone Number [facility] [address] [place] [phone] * Ferritin (01/29/2025 9:05 AM EDT) Ferritin 73 10 - 122 ng/mL [facility] 01/29/2025 9:05 AM EDT 01/29/2025 9:05 AM EDT us Generic External Data Provider LAB BLOOD ORDERAB LES Final Result Performing Organization Address City/[facility] Co de Phone Number [facility] [address] [place] [phone] * Helicobacter pylori??Antigen, EIA, Stool (01/13/2025 3:33 PM EDT) H pylori Ag Stool SEE NOTE [facility] Comment:HELICOBACTER PYLORI AG, EIA, STOOL Micro Number: [id number] Test Status: Final Specimen Source: Stool Specimen Quality: Adequate H.pylori Ag: Not Detected Antimicrobials, proton pump inhibitors, and bismuth preparations inhibit H. pylori and ingestion up to two weeks prior to testing may cause false negative results. If clinically indicated the test should be repeated on a new specimen obtained two weeks after discontinuing treatment. Reference Range: Not DetectedTHIS TEST WAS PERFORMED AT:[facility] [place] [phone] PEREIRA MD Stool Rectal contents / Unknown 01/13/2025 3:33 PM EDT 01/14/2025 12:03 PM EDT Huan Kelly MD LAB BODY FLUIDS AND STOOLS ORDER SARAH Final Result [facility] [address] [place] [phone] * POCT , urine manually resulted (01/12/2025 9:34 AM EDT) Pathologist [facility] Preg Test, Ur Negative Negative, Indeterminate, None Detected, Invalid, Specimen unsatisfactory for evaluation, Weakly Positive, 2+ Urine 01/12/2025 9:34 AM EDT Huan Kelly MD POINT OF CARE TEST ENTER/EDIT OR DERABLES Final Result * POCT HGB A1C (07/08/2024 10:06 AM EST) [facility] Hemoglobin A1C 5.7 4.0 - 6.0 % QC Media Lot # [id number] Lot# Expiration Date Blood 07/08/2024 10:0 6 AM EST Margot Marquez MD POINT OF CARE TEST EN TER/EDIT ORDERABLES Final Result * Hepatitis C Ab (01/27/2024 10:13 AM EDT) [facility] Hepatitis C Antibody Nonreactive Nonreactive [facility] Comment:Antibodies to HCV no t detected; does not exclude early acuteHCV infection. 01/27/2024 10:1 3 AM EDT 01/27/2024 10:13 AM EDT Generic External Data Provider LAB BLOOD ORDERAB LES Final Result Performing Organization Address [facility]/ZIP Co de Phone Number [facility] [address] [place] [phone] * HIV-1/2 Antigen and Antibodies, Fourth Generation, with Reflexes (01/27/2024 10:13 AM EDT) HIV AB/AG Nonreactive Nonreactive [facility] Comment:HIV-1 p24 Ag and/or HIV-1/HIV-2 Ab not detected.A test result that is nonreactive does not exclude thepossibility of exposure to or infection with HIV-1 and/orHIV-2. Nonreactive results in this assay for individualswith prior exposure to HIV-1 and/or HIV-2 may be due toantigen and antibody levels that are below the limit ofdetection of this assay.The [employer] HIV Ag/Ab Combo assay result andsupplemental assay results should be interpreted inconjunction with the patient's clinical presentation,history and other laboratory results. If the results areinconsistent with clinical evidence, additional testing issuggested to confirm the result. 01/27/2024 10:1 3 AM EDT 01/27/2024 10:13 AM EDT us Generic External Data Provider LAB BLOOD ORDERAB LES Final Result [facility] [address] [place] [phone] * Pap Smear (06/25/2022) Pap Negative for intraephithelial lesion or malignancy Negative for intraephithelial lesion or malignancy, Other Historical Provider HEALTH MAINTENANCE Final Result from Last 3 Months or Most Recently Relevant to Health Maintenance Insurance [facility] STANDARD [facility] [place] STAND ADULT Care Teams Treating Plant Supervisor Relationship Specialty Start Date End Date Marielle Hayes MD [address] [place] [address] PCP - General Family Medicine 01/25/22 marielle Hayes Automotive Window TinterFitting Room Checker 07/11/23 Bryan Vyas Automotive Window TinterFitting Room Checker 11/05/23
--- OUTSIDE RECORDS SUMMARY | 2025-02-02 12:48 | XMS_ITS | Encounter Summary ---
Author Organization [employer] Address [address] [facility] 7 [place] [address] Care Team Providers Care Ballet Company Member Name Role Phone Marielle Hayes MD Primary Care Provider [phone] Renate Lyman RN Unavailable [phone] Carmencita Sierra Unavailable Encounter Details Date Type Department Care Team ([facility] st Contact Info) Description 02/11/2024 Orders Only [facility] MED & PEDS [address] [place] [address] Marielle Hayes MD [address] [place] [address] Iron deficiency anemia, unspecified iron deficiency anemia [...] 8:45 AM EDT Office Visit [facility] ADULT DENTAL [address] [place] [address] Celso Gil Scheduled Orders Name Type Priority [...] 9:12 AM EDT Narrative 04/22/2024 2:[address] [address] Ultrasound Report Signed Patient: David Silva MR#: [id number] : 2000 Acct:[id number] Age/Sex: 23 / F ADM Date: 03/06/24 Loc: HO.US Attending Dr: Gina Nicole MD Ordering Physician: Gina Nicole MD Date of Service: 03/06/24 Procedure(s): US abdomen complete Accession Number(s): [id number] cc: Marielle Hayes MD; Gina Nicole MD [...] by: Naun Ramos MD 04/22/2024 02:43 PM [facility] Dictated By: Naun Ramos MD Signed By: <Electronically signed by Naun Ramos MD in OV> 04/22/24 1443 DD/ 1 TD/TT: 03/06/24 0946 Research Soil Scientist: Procedure Note Donotuseinterpreter, Image - 04/22/[address] [place] [address] Ultrasound Report Signed Patient: David SilvaMR#: [id number] : 2000Acct:[id number] Age/Sex: 23 / FADM Date: 03/06/24 Loc: HO.US Attending Dr: Gina Nicole MD Ordering Physician: Gina Nicole MD Date of Service: 03/06/24 Procedure(s): US abdomen complete Accession Number(s): [id number] cc: Marielle Hayes MD; Gina Nicole MD [...] by: Naun Ramos MD 04/22/2024 02:43 PM [facility] Dictated By: Naun Ramos MD Signed By: <Electronically signed by Naun Ramos MD in OV> 04/22/24 1443 DD/ 0912 TD/TT: 03/06/24 0946 Research Soil Scientist: [facility] External Provider IMG US PROCEDURES Edited Result - Final documented in this encounter Visit Diagnoses Diagnosis Iron deficiency anemia, unspecified iron deficiency anemia type- Primary documented in this encounter Additional Health Concerns Assessment Noted Time PHQ-9 Depression Total Score: 0 02/10/20 9:50 AM EDT documented as of this encounter Care Teams Ballet Company Member Relationship Specialty Start Date End Date Marielle Hayes MD [address] [place] [address] PCP - General Family Medicine 01/25/22 Renate Lyman RN [address] [place] [address] Registered Nurse Family Medicine 09/14/24 10/08/24 Carmencita Sierra 09/14/24 10/08/24 marielle Hayes Travel OtStaff Psychologist 07/11/23 Bryan Vyas Travel OtStaff Psychologist 11/05/23 documented as of this encounter
--- OUTSIDE RECORDS SUMMARY | 2025-02-02 12:48 | XMS_ITS | Encounter Summary ---
Author Organization [employer] Address 75 [facility] 7 [place] [address] Care Team Providers Care Casing Flusher Name Role Phone Marielle Hayes MD Primary Care Provider [phone] Reason for Visit * Reason Onset Date Comments RAPID ASSIST 01/30/2025 Encounter Details Date Type Department Care Team ([facility] st Contact Info) Description 01/30/2025 Telephone [facility] MEDICINE [address] [place], [place] [phone] Jaimee Ellis, DWAYNE [address] [place] [address] RAPID ASSIST Social History Tobacco Use Types Packs/Day Years [...] encounter Miscellaneous Notes * Telephone Encounter - Natalie Castro RN - 02/01/2025 2:59 PM EDT [facility] notes obtained and submitted for scanning. * Telephone Encounter - Natalie Castro RN - 02/01/2025 2:57 PM EDT TC to pt to status check after ER visit. Pt stated that she is doing much better. No additional episodes of shortness of breath. Pt was re prescribed propranolol and was recommended to follow up witha primary counselor. Advised will schedule ER follow up appointment for 02/02/25 for pt to be evaluated by provider. Pt verbalized understanding and agreement with plan. * Telephone Encounter - Jaimee Ellis RN - 01/30/2025 10:53 AM EDT ASSESSMENT: David Lopez presents to [facility] c/o [facility] for aprox 3mo, it has been progressive to less than 1 block and even with house chores. It's been lately associated to pleuritic chest painradiated to upper chest and throat discomfort, she also co palpitation, dizziness and LIMA. This alsohappens at rest sometimes. No fever, chills, productive cough. EKG was completed. Pt stood up to put her shirt back on and had near syncopal episode. When RN entered the room, she was already on the floor with Dr Brown. Rapid response was initiated 01/30/2025 at 9:48 AM by [facility] staff. Responding provider: Marielos Brown MD Other Staff present: Shashi Flynn MD, Jaimee Ellis RN, ALYSA Lim, and ALYSA Kathleen VITALS: Time: 9:47 AM, BP: 142/82 , irregular heart rhythm per Dr Taylor O2 sat: 87% on room air, chest pain/pressure Time: 9:54 AM, BP: 134/81 right arm Automatic, HR: 77, O2 sat: 99% on 2 liters O2, still having chest pressure with inspiration Pt visibly shaking stating she is cold. Was wrapped in paper drapes to warm her. MEDICATION/O2 ADMINISTRATION: Medication administered: aspirin 81mg x5 tablets (405mg) oral, time 9:50 AM tolerated well. Oxygen administered: 2 liters/min via nasal cannula, time 9:48 AM. tolerated well. PLAN: EMS called at 9:48 AM. Verbal report given to EMS: Yes David Lopez transported to [facility] at 9:59 AM. Family member notified: Yes, name/relationship: Abov (spouse) Abov came to order picker/assembler their young child who was with pt when this happened. Task sent to PCP team for status check: Yes Jaimee Ellis RN documented in this encounter Plan of Treatment Upcoming Encounters Date Type Department Care Team (Late st Contact Info) Description 03/02/2025 8:45 AM EDT Office Visit [facility] AD[facility] [address] [place] [address] Celso Gil documented as of this encounter Visit Diagnoses Not on filedocumented in this encounter Additional Health Concerns Assessment Noted Time PHQ-9 Depression Total Score: 0 02/10/20 9:50 AM EDT documented as of this encounter Care Teams Casing Flusher Relationship Specialty Start Date End Date Marielle Hayes MD [address] [place] [address] PCP - General Family Medicine 01/25/22 marielle Hayes Bi Solutions ArchitectArchivist 07/11/23 Bryan Vyas Bi Solutions ArchitectArchivist 11/05/23 documented as of this encounter
--- OUTSIDE RECORDS SUMMARY | 2025-02-02 12:48 | XMS_ITS | Encounter Summary ---
Author Organization [employer] Address 75 [facility] 7t [place] [address] Care Team Providers Care Ear Muff Assembler Name Role Phone Marielle Hayes MD Primary Care Provider [phone] Encounter Details Date Type Department Care Team [...] Description 03/02/2025 8:45 AM EDT Office Visit [facility] CH[facility] ADULT DENTAL [address] [place] [address] Celso Gil documented as of this encounter Visit Diagnoses Not on filedocumented in this encounter Additional Health Concerns Assessment Noted Time PHQ-9 Depression Total Score: 0 02/10/20 9:50 AM EDT documented as of this encounter Care Teams Ear Muff Assembler Relationship Specialty Start Date End Date Marielle Hayes MD [address] [place] [phone] PCP - General Family Medicine 01/25/22 marielle Hayes Trailer Truck DriverPerforator 07/11/23 Bryan Vyas Trailer Truck DriverPerforator 11/05/23 documented as of this encounter
--- OUTSIDE RECORDS SUMMARY | 2025-02-02 12:48 | XMS_ITS | Encounter Summary ---
Author Organization [employer] Address [address] [facility] 7t [place] [address] Care Team Providers Care Pharmacovigilance Specialist Name Role Phone Marielle Hayes MD Primary Care Provider [phone] Renate Lyman RN Unavailable [phone] Carmencita Sierra Unavailable Reason for Visit * Reason Onset Date Comments ER Follow-up 12/18/2023 Encounter Details Date Type Department Care Team (Late st Contact Info) Description 12/18/2023 Telephone [facility] MEDICINE [address] [place] [address] Marielle Hayes MD [address] [place], [place] [phone] ER Follow-up Social History Tobacco Use Types [...] weakness and Pt fell down. Ptwent to [facility] via ambulance but, because it was so full Pt then went to [facility] 12/17/23 .Pt did have xrays done and was told the pain was due to sciatica and there was a curvature in the spine. [facility] information is not on the chart but, [...] Reason: Other Override Notes: Pt seen in [facility] Ed Video visit not offered Positive Triage [...] 1:52 PM EDT Tc from Alondra at [facility] stating pt is still in severe pain and is requesting to speak to a nurse or be seen. Alondra stated pt is unable to take medication prescribed at [facility] due to breast feeding. Advised will forward to triage nurse. Contact pt at [phone] * Telephone Encounter - Nirav Corrales - 12/18/2023 8:31 AM EDT Patient calling to report ED visit on : Date: 12/16 Hospital: [facility] Seen for: Back Pain Patient advised will forward to team nurse for follow up documented in this encounter Plan of Treatment Upcoming Encounters Date Type Department Care Team (Late st Contact Info) Description 03/02/2025 8:45 AM EDT Office Visit [facility] ADULT DENTAL [address] [place] [address] Celso Gil documented as of this encounter Visit Diagnoses Not on filedocumented in this encounter Care Teams Pharmacovigilance Specialist Relationship Specialty Start Date End Date Marielle Hayes MD [address] [place] [address] PCP - General Family Medicine 01/25/22 Renate Lyman RN [address] [place] [address] Registered Nurse Family Medicine 09/14/24 10/08/24 Carmencita Sierra 09/14/24 10/08/24 marielle Hayes Manager InternalPlate Mill Hand 07/11/23 Bryna Vyas Manager InternalPlate Mill Hand 11/05/23 documented as of this encounter
--- OUTSIDE RECORDS SUMMARY | 2025-02-02 12:48 | XMS_ITS | Encounter Summary ---
Author Organization [employer] Address [address] [facility] 7 [place] [address] Care Team Providers Care Travel Administrator Name Role Phone Marielle Hayes MD Primary Care Provider Renate Lyman RN Unavailable [phone] Carmencita Sierra Unavailable Encounter Details Date Type Department Care Team ([facility] st Contact Info) Description 11/26/2023 Orders Only [facility] CHC MED & PEDS [address] [place] [address] Bora Gil MD [address] [place] [address] Social History Tobacco Use Types Packs/Day Years [...] [facility] ADULT DENTAL [address] [place] [address] Celso Gil documented as of this encounter Procedures Procedure Name Priority Date/Time Associated Diagnosis Comments XR LUMBAR SPINE 2-3 VIEWS Routine 12/17/2023 7:05 PM EDT documented in this encounter Results * XR Lumbar Spine 2-3 Views (12/17/2023 7:05 PM EDT) Anatomical Region Laterality Modality Spine, L-spine Radiographic Bailee ging 12/17/2023 7:05 PM EDT Narrative 12/17/2023 8:08 PM EDT [address] [address] XRay Report Signed Patient: David Silva MR#: [id number] : 2000 Acct:[id number] Age/Sex: 23 / F ADM Date: 12/17/23 Loc: HO.ED Attending Dr: Ordering Physician: Stephanie Hopkins Date of Service: 12/17/23 Procedure(s): XR lumbar spine 2-3V Accession Number(s): [id number] cc: Stephanie Hopkins; Marielle Hayes MD EXAMINATION: [...] Borrero in OV> 12/17/232004 DD/ 04 TD/TT: Aircraft Cylinder Mechanic: Procedure Note Donotuseinterpreter, Image - 12/17/[address] [address] XRay Report Signed Patient: David SilvaMR#: [id number] : 2000Acct:[id number] Age/Sex: 23 / FADM Date: 12/17/23 Loc: .ED Attending Dr: Ordering Physician: Stephanie Hopkins Date of Service: 12/17/23 Procedure(s): XR lumbar spine 2-3V Accession Number(s): [id number] cc: Stephanie Hopkins; Marielle Hayes MD EXAMINATION: [...] Borrero in OV> 12/17/232004 DD/ 04 TD/TT: Aircraft Cylinder Mechanic: [facility] External Provider IMG XR PROCEDURES Edited Result - Final documented in this encounter Visit Diagnoses Not on filedocumented in this encounter Care Teams Travel Administrator Relationship Specialty Start Date End Date Marielle Hayes MD [address] [place] [address] PCP - General Family Medicine 01/25/22 Renate Lyman RN [address] [place] [address] [place] [address] Registered Nurse Family Medicine 09/14/24 10/08/24 Carmencita Sierra 09/14/24 10/08/24 marielle Hayes Instrumentation EngineerCrisis Counselor 07/11/23 Bryan Vyas Instrumentation EngineerCrisis Counselor 11/05/23 documented as of this encounter
[2025-02-02 14:16] LABS: MANUAL DIFF FLAG NO
[2025-02-02 14:19] LABS: Hematocrit 41.2 % (37.0-47.0); Hemoglobin 13.7 g/dl (12.0-16.0); Imm Gran Abs Auto 0.01 X10*3/uL (0.00-0.03); Imm Gran Pct Auto 0.2 % (0.0-0.4); Lymphocytes Absolute Auto 2.3 X10*3/uL (1.2-4.9); Mean Corpuscular HGB Conc 33.3 g/dl (31.0-35.0); Mean Corpuscular Hemoglobin 28.2 pg (27.0-33.0); Mean Corpuscular Volume 84.9 fL (80.0-98.0); NRBC Abs Auto 0.000 X10*3/uL (0.0-0.012); NRBC Pct Auto 0.0 /100WBC (0.0-0.2); Platelet Count 287 X10*3/uL (160-400); Red Blood Count 4.85 X10*6/uL (4.20-5.50); White Blood Count 5.1 X10*3/uL (4.8-10.8)
[2025-02-02 14:39] LABS: INTERNATIONAL NORM RATIO 1.1 (0.9-1.1); Prothrombin Time 12.5 SEC (10.9-12.4)
[2025-02-02 14:41] LABS: Partial Thromboplastin Time 30.5 SEC (26.7-34.1)
== END 2025-02-02 11:20 | disposition home or self-care (01) ==
LOC: HO.CHCLDS 11:19
PROVIDERS: Visit Provider Internal Medicine
DX: R06.89 Other abnormalities of breathing (principal)
CPT/HCPCS: 36415; 84443; 85025; 85610; 85730

== ENCOUNTER 2025-04-05 09:21 | Outpatient (AMB) | payer OTHER, MEDICAID, SELFPAY ==
--- NOTE | 2025-04-05 09:09 | A.OFFVIS_ITS ---
Vital Signs 04/05/25 09:24 Height 5 ft 6 in Weight 202 lb 13.204 oz BMI 32.7 BP 110/64 Blood Pressure Location Lt brachial Position Sitting Pulse 59 Pulse Source Pulse Oximeter Pulse Oximetry (%) 96 Oxygen Delivery Method Room Air Intake Visit Reasons: asthma Allergies No Known Allergies Allergy (Verified 04/05/25 09:28) HPI HPI asthma: Details: David is a pleasant 25-year-old female, never smoker with underlying RAPHAEL. She was referred by PCP back in May for ongoing dyspnea that had began shortly after the of her child in 2022. Initially attributed to weight gain however symptoms have persisted after weight loss. She does have a h/o RAPHAEL, under the care of GI, and has reportedly received 4 blood transfusions this year. Most recent labs WNL. Patient was evaluated at [facility] ED 01/2025 for significant dyspnea with associated tachycardia and palpitations with a near syncopal event. She was started on beta-blockers with minimal improvement of palpitations and no change in dyspnea. During this evaluation D-dimer BNP and troponins were unremarkable. Chest x-ray negative for any acute findings. She denies any chest pain or signs or symptoms of DVT/PE. She reports multiple first degree family members with asthma. She continues to report dyspnea at rest or with exertion and sensation of inability to fully inspire. Occasionally accompanied by palpitations or chest tightness and these symptoms are present multiple times per week. Denies cough, wheezing or h/o asthma. She has an upcoming echo and holter, with initial cardiology consultation scheduled in July 2025. Of note, patient did state that as a toddler her mother expressed concerns regarding respiratory symptoms, however did not have further evaluation. She noted growing up in [place] and not having routine medical care until she was about 14 years old. [facility] Medical History Anemia Surgical History History of esophagogastroduodenoscopy (EGD) Social History Household Members: Spouse and Family Alcohol intake: never Patient Tobacco Use Status: Never used Tobacco Review of Systems Const Denies chills, Denies excessive sweating, Denies fever(s), Denies headache(s) and Denies night sweats Eyes Denies dry eyes, Denies irritation and Denies itchy eyes ENT Reports Normal hearing present, Denies headache(s), Denies nasal congestion, Denies nasal discharge, Denies post nasal drip and Denies sore throat Card Denies chest pain, Denies chest pain at rest, Denies chest pain with activity, Denies claudication, Denies leg edema, Denies orthopnea and Denies paroxysmal nocturnal dyspnea Resp Denies chest congestion, Denies cough, Denies excessive phlegm production, Denies pain on inspiration, Denies pain with cough, Denies stridor and Denies wheezing Musc Denies myalgias Neuro Reports Normal hearing present and Denies headache(s) Endo Denies excessive sweating Yogesh/Lymph Denies lymphadenopathy Aller/Immun Denies itchy eyes, Denies seasonal rhinorrhea and Denies wheezing Physical Exam Vital Signs: Last Vital Signs Pulse 59 04/05/25 09:24 BP 110/64 04/05/25 09:24 Pulse Ox 96 04/05/25 09:24 Oxygen Delivery Method Room Air 04/05/25 09:24 BMI result Body Mass Index 32.7 Const General: cooperative, healthy appearing, comfortable, no acute distress, well developed and alert Nutritional Appearance: obese Orientation/consciousness: patient oriented x3 Limitations: no limitations HEENT Head: Yes normal to inspection, Yes normocephalic and Yes atraumatic Ears: hearing grossly normal bilaterally and external ears normal Eyes General: appearance normal, both eyes and all related structures Eyelids: Yes eyelids normal Sclerae: sclerae normal EOM: EOMs intact bilaterally Neck Neck: Yes normal visual inspection and Yes no lymphadenopathy Lymphatic: no lymphadenopathy noted Chest Chest palpation & inspection: normal inspection of the chest Resp Effort & Inspection: normal respiratory effort, able to speak in complete sentences, no audible wheezes, no cough, no stridor, not tachypneic, no tripod positioning and no use of accessory muscles Auscultation: clear to auscultation bilaterally Cardio Jugular venous distension: no JVD Rate: regular rate Rhythm: regular rhythm Skin Other: warm, dry General skin exam: no rashes or lesions noted Neuro General: patient oriented x3 Cranial nerves: Yes Normal hearing present Cognition (Neuro): normal cognition Gait exam (Neuro): Normal gait present Extrem General: Yes normal to inspection, Yes capillary refill normal, Yes no clubbing, cyanosis or edema and Yes no pedal edema Psych Appearance: grossly normal and well kempt Speech and movement: Normal speech and movement present and Clear speech present Affect: normal affect Attitude: cooperative Thought process: Normal thought process present Thought content: Normal thought content present Insight: Good insight present (Psych) Judgement: Good judgement present (Psych) Assessment & Plan Assessment & Plan (1) Dyspnea: Code(s): R06.00 - Dyspnea, unspecified Category: Medical Plan David presents for evaluation for persistent dyspnea and chest tightness, with possible pulmonary and cardiac etiologies. She has upcoming echo and holter scheduled in April and will send for PFT to assess for asthma. Signs and symptoms that warrant emergent care reviewed. All questions were answered and patient is in agreement of plan. Will follow up to review results or sooner if needed. Orders: Orders PFT pulmonary function test Today R06.00 - Dyspnea, unspecified Coding Level of Care Code New Pt Level 3 (96149) Diagnoses Dyspnea R06.00
[2025-04-05 09:24] VITALS: BP 110/64; PULSE 59; O2SAT 96; BMI 32.7
--- OUTSIDE RECORDS SUMMARY | 2025-04-05 11:03 | XMS_ITS | Encounter Summary ---
Author Organization [employer] Address [address] [facility] [address] 7t [place] [address] Care Team Providers Care Tip Finisher Name Role Phone Marielle Hayes MD Primary Care Provider [phone] Renate Lyman RN Unavailable Unavailable Carmencita Sierra Unavailable Encounter Details Date Type Department Care Team ([facility] st Contact Info) Description 02/11/2024 Orders Only [facility] CHC MED & PEDS [address] [place] [address] Marielle Hayes MD [address] [place] [address] Iron deficiency anemia, unspecified iron deficiency anemia [...] Care Team (Late st Contact Info) Description 04/07/2025 9:00 AM EST Office Visit [facility] ADULT DENTAL [address] [place] [address] Jan Reyes, DMD [address] [place] [address] 09/01/2025 8:45 AM EDT Office Visit [facility] ADULT DENTAL [address] [place] [address] Celso Gil Scheduled Orders Name Type Priority [...] AM EDT Narrative 04/22/2024 2:45 PM EST [address] [address] Ultrasound Report Signed Patient: David Silva MR#: [id number] : 2000 Acct:[id number] Age/Sex: 23 / F ADM Date: 03/06/24 Loc: HO.US Attending Dr: Gina Nicole MD Ordering Physician: Gina Nicole MD Date of Service: 03/06/24 Procedure(s): US abdomen complete Accession Number(s): [id number] cc: Marielle Hayes MD; Gina Nicole MD [...] OV> 04/22/24 1443 DD/ TD/TT: 03/06/24 0946 Home Health Nurse: Procedure Note Donotuseinterpreter, Image - 04/22/[address] [address] Ultrasound Report Signed Patient: David SilvaMR#: [id number] : 2000Acct:[id number] Age/Sex: 23 / FADM Date: 03/06/24 Loc: HO.US Attending Dr: Gina Nicole MD Ordering Physician: Gina Nicole MD Date of Service: 03/06/24 Procedure(s): US abdomen complete Accession Number(s): [id number] cc: Marielle Hayes MD; Gina Nicole MD [...] 04/22/24 1443 DD/ 1 TD/TT: 03/06/24 0946 Home Health Nurse: [facility] External Provider IMG PROCEDURES Edited Result - Final documented in this encounter Visit Diagnoses Diagnosis Iron deficiency anemia, unspecified iron deficiency anemia type- Primary documented in this encounter Additional Health Concerns Assessment Noted Time PHQ-9 Depression Total Score: 0 02/10/20 9:50 AM EDT documented as of this encounter Care Teams Tip Finisher Relationship Specialty Start Date End Date Marielle Hayes MD [address] [place] [address] PCP - General Family Medicine 01/25/22 Renate Lyman RN [address] [place] [address] Registered Nurse Family Medicine 09/14/24 10/08/24 Carmencita Sierra 09/14/24 10/08/24 marielle Hayes Systems LeadStaff Anesthesiologist 07/11/23 Bryan Vyas Systems LeadStaff Anesthesiologist 11/05/23 documented as of this encounter
--- OUTSIDE RECORDS SUMMARY | 2025-04-05 11:03 | XMS_ITS | Encounter Summary ---
Author Organization [employer] Address 75 [facility] 7 [place] [address] Care Team Providers Care Ship Scaler Name Role Phone Marielle Hayes MD Primary Care Provider [phone] Renate Lyman RN Unavailable Unavailable Carmencita Sierra Unavailable Encounter Details Date Type Department Care Team ([facility] st Contact Info) Description 11/26/2023 Orders Only [facility] CHC MED & PEDS [address] [place] [address] Bora Gil MD [address] [place], [place] [phone] Social History Tobacco Use Types Packs/Day Years [...] Description 04/07/2025 9:00 AM EST Office Visit [facility] ADULT DENTAL [address] [place] [address] Jan Reyes, DMD [address] [place] [address] 09/01/2025 8:45 AM EDT Office Visit [facility] ADULT DENTAL [address] [place] [address] Celso Gil documented as of this encounter Procedures Procedure Name Priority Date/Time Associated Diagnosis Comments XR LUMBAR SPINE 2-3 VIEWS Routine 12/17/2023 7:05 PM EDT documented in this encounter Results * XR Lumbar Spine 2-3 Views (12/17/2023 7:05 PM EDT) Anatomical Region Laterality Modality Spine, L-spine Radiographic Bailee ging 12/17/2023 7:05 PM EDT Narrative 12/17/2023 8:08 PM EDT [address] [address] XRay Report Signed Patient: David Silva MR#: [id number] : 2000 Acct:[id number] Age/Sex: 23 / F ADM Date: 12/17/23 Loc: .ED Attending Dr: Ordering Physician: Stephanie Hopkins Date of Service: 12/17/23 Procedure(s): XR lumbar spine 2-3V Accession Number(s): [id number] cc: Stephanie Hopkins; Marielle Hayes MD EXAMINATION: [...] Borrero in OV> 12/17/232004 DD/ 04 TD/TT: Closing Agent: Procedure Note Donotuseinterpreter, Image - 12/17/2023 [place] [address] XRay Report Signed Patient: aDvid SilvaMR#: [id number] : 2000Acct:[id number] Age/Sex: 23 / FADM Date: 12/17/23 Loc: HO.ED Attending Dr: Ordering Physician: Stephanie Hopkins Date of Service: 12/17/23 Procedure(s): XR lumbar spine 2-3V Accession Number(s): [id number] cc: Stephanie Hopkins; Marielle Hayes MD EXAMINATION: [...] Borrero in OV> 12/17/232004 DD/ 04 TD/TT: Closing Agent: us [facility] External Provider IMG XR PROCEDURES Edited Result - Final documented in this encounter Visit Diagnoses Not on filedocumented in this encounter Care Teams Ship Scaler Relationship Specialty Start Date End Date Marielle Hayes MD [address] [place] [address] PCP - General Family Medicine 01/25/22 Renate Lyman RN [address] [place] [address] Registered Nurse Family Medicine 09/14/24 10/08/24 Carmencita Sierra 09/14/24 10/08/24 marielle Hayes Financial Services InternshipCrusher And Blender Operator 07/11/23 Bryan Vyas Financial Services InternshipCrusher And Blender Operator 11/05/23 documented as of this encounter
--- OUTSIDE RECORDS SUMMARY | 2025-04-05 11:03 | XMS_ITS | Encounter Summary ---
Author Organization [employer] Address [address] [facility] [address] 7t [place] [address] Care Team Providers Care Director Of Respiratory Therapy Name Role Phone Marielle Hayes MD Primary Care Provider [phone] Renate Lyman RN Unavailable Unavailable Carmencita Sierra Unavailable Reason for Visit * Reason Onset Date Comments Nurse Triage 12/13/2023 Encounter Details Date Type Department Care Team (Late st Contact Info) Description 12/13/2023 Telephone [facility] MEDICINE [address] [place] [address] Marielle Hayes MD [address] [place], [place] [phone] Nurse Triage Social History Tobacco Use Types [...] Description 04/07/2025 9:00 AM EST Office Visit [facility] ADULT DENTAL [address] [place] [address] Jan Reyes, DMD [address] [place] [address] 09/01/2025 8:45 AM EDT Office Visit [facility] ADULT DENTAL [address] [place] [address] Celso Gil documented as of this encounter Visit Diagnoses Not on filedocumented in this encounter Care Teams Director Of Respiratory Therapy Relationship Specialty Start Date End Date Marielle Hayes MD [address] [place] [address] PCP - General Family Medicine 01/25/22 Renate Lyman RN [address] [place] [address] Registered Nurse Family Medicine 09/14/24 10/08/24 Carmencita Sierra 09/14/24 10/08/24 marielle Hayes Technical Sales RepresentativePantry Goods Worker 07/11/23 Bryan Vyas Technical Sales RepresentativePantry Goods Worker 11/05/23 documented as of this encounter
--- OUTSIDE RECORDS SUMMARY | 2025-04-05 11:03 | XMS_ITS | Clinical Summary ---
Author Organization [facility] Address [address] [place] [address] Phone Care Team Providers Care Cup Trimming Machine Operator Name Role Phone Unavailable Primary [...] Health Maintenance Due Date Last Done Comments HPV Vaccines (1 - 3-dose series) 2015 DTaP,Tdap,and Td Vaccines (1 - Tdap) 2019 Hepatitis B Vaccines (1 of 3 - 19+ 3-dose series) 2019 Cervical Cancer Screening: P ap Smear 2021 HIV Screening 04/04/2022 Hepatitis C Screening 04/04/2022 Social Influencers of Health Screening 04/04/2022 Depression Screening 05/06/2024 COVID-19 Vaccine ( - 2024-2 6 season) 2025 Influenza Vaccine (#1) 2025 RSV [...]
--- OUTSIDE RECORDS SUMMARY | 2025-04-05 11:03 | XMS_ITS | Encounter Summary ---
Author Organization [employer] Address [address] [facility] [address] 7[address] [place] [address] Care Team Providers Care Business Analyst Intern Name Role Phone Marielle Hayes MD Primary Care Provider [phone] Renate Lyman RN Unavailable Unavailable Carmencita Sierra Unavailable Reason for Visit * Reason Onset Date Comments ER Follow-up 12/18/2023 Encounter Details Date Type Department Care Team (Late st Contact Info) Description 12/18/2023 Telephone [facility] MEDICINE [address] [place] [address] Marielle Hayes MD [address] [place], [place] [phone] ER Follow-up Social History Tobacco Use Types [...] weakness and Pt fell down. Ptwent to [facility] via ambulance but, because it was so full Pt then went to [facility] ED 12/17/23 .Pt did have xrays done and was told the pain was due to sciatica and there was a curvature in the spine. [facility] information is not on the chart but, [...] Reason: Other Override Notes: Pt seen in [facility] Ed Video visit not offered Positive Triage [...] 1:52 PM EDT Tc from Alondra at [facility] stating pt is still in severe pain and is requesting to speak to a nurse or be seen. Alondra stated pt is unable to take medication prescribed at [facility] due to breast feeding. Advised will forward to triage nurse. Contact pt at [phone] * Telephone Encounter - Nirav Corrales - 12/18/2023 8:31 AM EDT Patient calling to report ED visit on : Date: 12/16 Hospital: [facility] Seen for: Back Pain Patient advised will forward to team nurse for follow up documented in this encounter Plan of Treatment Upcoming Encounters Date Type Department Care Team (Late st Contact Info) Description 04/07/2025 9:00 AM EST Office Visit [facility] ADULT DENTAL [address] [place] [address] Jan Reyes DMD [address] [place] [address] 09/01/2025 8:45 AM EDT Office Visit [facility] ADULT DENTAL [address] [place] [address] Celso Gil documented as of this encounter Visit Diagnoses Not on filedocumented in this encounter Care Teams Business Analyst Intern Relationship Specialty Start Date End Date Marielle Hayes MD [address] [place] [address] PCP - General Family Medicine 01/25/22 Renate Lyman RN [address] [place] [address] Registered Nurse Family Medicine 09/14/24 10/08/24 Carmencita Sierra 09/14/24 10/08/24 marielle Hayes Jewelry Sales CoordinatorRoll Weigher 07/11/23 Bryan Vyas Jewelry Sales CoordinatorRoll Weigher 11/05/23 documented as of this encounter
--- OUTSIDE RECORDS SUMMARY | 2025-04-05 11:03 | XMS_ITS | Clinical Summary ---
Author Organization [employer] Address [address] [facility] [address] [place] [address] Care Team Providers Care District Court Administrator Name Role Phone Marielle Hayes MD Primary Care Provider [phone] Allergies No known active allergies Medications simethicone [...] 2 times daily. 60 suppository 1 02/10/20 Active Additional Information Patient not [...] 12 doses. 10 tablet 01/13/20 25 Active omeprazole (PriLOSEC) [address] capsule 01/30/20 25 Active propranolol (Inderal) 10 MG tablet Take 10 mg by mouth. 01/31/20 Active Active Problems Problem Noted Date Diagnosed [...] Encounters Date Type Department Care Team Description 2025 11:00 AM EST Office Visit [facility] [address] [place] [address] Arrived 03/19/2025 8:00 AM EST Office Visit [facility] [address] [place] [address] Jan Reyes DMD Dental caries (Primary Dx); Incomplete previous endodontic treatment 03/02/2025 8:45 AM EDT Office Visit [facility] [address] [place] [address] Celso Gil Dental calculus (Primary Dx); Dental caries; Gingivitis 02/02/2025 11:15 AM EDT Office Visit [facility] [address] [place] [address] Bora Gil MD Palpitations (Primary Dx); Near syncope; Difficulty breathing 02/02/2025 Travel 01/30/2025 9:00 AM EDT Office Visit [facility] [address] [place] [address] Marielos Brown MD Palpitations (Primary Dx); Near syncope; Difficulty breathing; Sore throat 01/30/2025 Orders Only GENERIC EXTERNAL DATA DEPARTMENT Provider, Generic External Data 01/30/2025 Telephone [facility] [address] [place] [address] Jaimee Ellis RN RAPID ASSIST 01/30/2025 Travel 01/29/2025 Orders Only GENERIC EXTERNAL DATA DEPARTMENT Provider, Generic External Data 01/18/2025 Results Follow-Up [facility] [address] [place] [address] Huan Kelly MD Helicobacter pylori Antigen, EIA, Stool, POCT , urine manually resulted 01/12/2025 9:00 AM EDT Office Visit [facility] [address] [place] [address] Huan Kelly MD Epigastric pain (Primary Dx) [...] Sign Reading Time Taken Comments Blood Pressure 100/70 03/19/2025 8:18 AM EST Pulse 65 03/02/2025 9:04 AM EDT Temperature 37.2 C (98.9 F) [...] Description 04/07/2025 9:00 AM EST Office Visit [facility] [address] [place] [address] Jan Reyes DMD [address] [place] [address] 09/01/2025 8:45 AM EDT Office Visit [facility] [address] [place] [address] Celso Gil Health Maintenance Due Date Last Done Comments Disability Screening 2000 Alcohol/Substance Use Screening 2012 Family Planning (PISQ) 2015 COVID-19 Vaccine ( season) 2025 Influenza Vaccine (#1) 2025 8, 05/02/2016, 02/17/2014 Depression Screening 02/09/2025 02/10/2024, 01/05/20 SDOH Screening 02/09/2025 02/10/2024 HPV/Cotest 06/25/2025 Pap Smear 06/25/2025 06/25/2022 Diabetes: Hemoglobin A1C 07/08/2025 07/08/2024, 01/05 Dental Oral Exam 09/01/2025 03/02/2025, , 01/29/2024 Dental Prophylaxis 09/01/2025 03/02/2025, 0 08/18/2024, 02/14/2024 Dental X-Ray: Bitewings 03/03/2026 03/02/2025, 01/28 Tobacco Screening 03/19/2026 03/19/2025 Dental X-Ray: Full Mouth 01/29/2027 01/29/2024, 11/04 DTaP/Tdap/Td Vaccines (7 - Td or Tdap) 10/17/2033 10/18/2023, 10/26/2022, 05/02/2016, Additional history exists Zoster Vaccines (1 of 2) 2050 RSV Patients and Patients Aged 60 years or older (1 - 1-dose 75+ series) 2075 IPV Vaccines Completed 12/14/2013, 04/05, 10/02/2012 Hepatitis B Vaccines Discontinued 02/17/2014, 04/21/2013, 10/02/2012 HPV Vaccines Completed 11/15/2016, 02/03, 12/14/2013 Hepatitis A Vaccines Completed 11/15/2016, 02/18/20 14 Meningococcal Vaccine Completed 11/15/2016 HIV Screening Completed 01/27/2024 Hepatitis C Screening Completed 01/27/2024, 023 HIB Vaccines Aged Out No longer eligi ble based on patient's age to complete this topic Meningococcal B Vaccine Aged Out No l onger eligible based on patient's age to complete this topic Pneumococcal Vaccine: Pediatrics (0 to 5 Years) and At-Risk Patients (6 to 49) Years Aged Out No longer eligible based on patient's age to complete this topic RSV under 20 months Aged Out No longe r eligible based on patient's age to complete this topic Rotavirus Vaccines Aged Out No longer eligible based on patient's age to complete this topic Procedures Procedure Name Priority Date/Time Associated Diagnosis Comments INTRAORAL - PERIAPICAL FIRST RADIOGRAPHIC IMAGE Routine 03/19/2025 8:00 AM EST Incomplete previous endodontic treatment CASE PRESENTATION, DETAILED AND EXTENSIVE TREATMENT PLANNING Routine 03/19/2025 8:00 AM EST Dental caries Incomplete previous endodontic treatment 4 O RESIN-BASED COMPOSITE - 1 SURF, POSTERIOR Routine 03/19/2025 8:00 AM EST Dental caries 2 REBECCA RESIN-BASED COMPOSITE - 2 SURF, POSTERIOR Routine 03/19/2025 8:00 AM EST Dental caries COMPREHENSIVE PERIODONTAL EVALUATION - NEW OR ESTABLISHED PATIENT Routine 03/02/2025 8:45 AM EDT Dental caries Gingivitis PERIODIC ORAL EVALUATION - ESTABLISHED PATIENT Routine 03/02/2025 8:45 AM EDT Dental caries Gingivitis INTRAORAL - PERIAPICAL EACH ADDITIONAL RADIOGRAPHIC IMAGE Routine 03/02/2025 8:45 AM EDT Dental caries Gingivitis INTRAORAL - PERIAPICAL FIRST RADIOGRAPHIC IMAGE Routine 03/02/2025 8:45 AM EDT Dental caries Gingivitis BITEWINGS - 4 RADIOGRAPHIC IMAGES Routine 03/02/2025 8:45 AM EDT Dental caries Gingivitis CASE PRESENTATION, DETAILED AND EXTENSIVE TREATMENT PLANNING Routine 03/02/2025 8:45 AM EDT Dental caries Gingivitis ORAL HYGIENE INSTRUCTIONS Routine 03/02/2025 8:45 AM EDT Dental caries Gingivitis PROPHYLAXIS - ADULT Routine 03/02/2025 8:45 AM EDT Dental caries Gingivitis 30 CROWN - PORCELAIN/CERAMIC Routine 03/02/2025 12:00 AM EDT 30 ROOT CANAL Routine 03/02/2025 12:00 AM EDT TSH W/REFLEX TO FT4 Routine 02/02/2025 1 1:21 AM EDT Difficulty breathing APTT Routine 02/02/2025 11:21 AM EDT Difficulty breathing PROTHROMBIN TIME-INR Routine 02/02/2025 11:21 AM EDT Difficulty breathing CBC WITH AUTO DIFFERENTIAL Routine 02/02/2025 11:21 AM EDT Difficulty breathing D DIMER HIGH SENSITIVITY Routine 01/30/2025 1:02 [...] Routine 01/12/2025 9:34 AM EDT Epigastric pain POCT GLYCATED HEMOGLOBIN, TOTAL Routine 07/08/2024 10:06 AM EST Dizziness INTRAORAL - COMPLETE SERIES OF RADIOGRAPHIC IMAGES Routine 01/29/2024 9:30 AM EDT HEPATITIS C ANTIBODY Routine 01/27/2024 10:13 AM EDT HIV 1/2 ANTIGEN/ANTIBODY, FOURTH GENERATION W/RFL Routine 01/27/2024 10:13 AM EDT HM PAP/HPV Routine 06/25/2022 from Last 3 Months or Most Recently Relevant to Health Maintenance Results * TSH with Reflex to Free T4 (02/02/2025 11:21 AM EDT) TSH reflex Free T4 1.20 0.32 - 4.0 uIU/mL [facility] Blood 02/02/2025 11:2 1 AM EDT 02/02/2025 2:15 PM EDT us Marielos Brown MD LAB BLOOD ORDERABLES Fin al Result [facility] [address] [place] [phone] * (ABNORMAL) CBC auto differential (02/02/2025 11:21 AM EDT) White Blood Count 5.1 4.8 - 10.8 X10*3/uL [facility] Red Blood Count 4.85 4.20 - 5.50 X10*6/uL [facility] Hemoglobin 13.7 12.0 - 16.0 g/dl [facility] Hematocrit 41.2 37.0 - 47.0 % [facility] Mean Corpuscular Volume 84.9 80.0 - 98.0 fL [facility] Mean Corpuscular Hemoglobin 28.2 27.0 - 33.0 pg [facility] Mean Corpuscular HGB Conc 33.3 31.0 - 35.0 g/dl [facility] Red Cell Distribution Width 14.0 11.0 - 16.0 % [facility] Platelet Count 287 160 - 400 X10*3/uL [facility] Mean Platelet Volume 10.6 9.4 - 12.3 fL [facility] Neutrophils Percent Auto 45.9 45 - 73 % [facility] Imm Gran Pct Auto 0.2 0.0 - 0.4 % [facility] Lymphocytes Percent Auto 44.2(H) 20 - 40 % [facility] Monocytes Percent Auto 7.5 2 - 11 % [facility] Eosinophils Percent Auto 1.2 0 - 4 % [facility] Basophils Percent Auto 1.0 0 - 2 % [facility] NRBC Pct Auto 0.0 0.0 - 0.2 /100WBC [facility] Neutrophils Absolute Auto 2.3 2.0 - 8.3 x10*3/uL [facility] Imm Gran Abs Auto 0.01 0.00 - 0.03 X10*3/uL [facility] Lymphocytes Absolute Auto 2.3 1.2 - 4.9 X10*3/uL [facility] Monocytes Absolute Auto 0.4 0.1 - 1.2 X10*3/uL [facility] Eosinophils Absolute Auto 0.1 0.0 - 0.4 X10*3/uL [facility] Basophils Absolute Auto 0.1 0.0 - 0.2 X10*3/uL [facility] NRBC Abs Auto 0.000 0.0 - 0.012 X10*3/uL [facility] Blood Venous blood specimen / Unknown 02/02/2025 11:21 AM EDT 02/02/2025 2:09 PM EDT us Marielos Brown MD LAB BLOOD ORDERABLES Fin al Result [facility] [address] [place] [phone] * Partial Thromboplastin Time, Activated (APTT) (02/02/2025 11:21 AM EDT) Partial Thromboplastin Time 30.5 26.7 - 34.1 SEC [facility] Blood Venous blood specimen / Unknown 02/02/2025 11:21 AM EDT 02/02/2025 2:09 PM EDT Marielos Brown MD LAB BLOOD ORDERABLES Fin al Result Performing Organization Address [facility] Co de Phone Number [facility] [address] [place] [phone] * (ABNORMAL) Prothrombin Time-INR (02/02/2025 11:21 AM EDT) Prothrombin Time 12.5(H) 10.9 - 12.4 SEC [facility] INTERNATIONAL NORM RATIO 1.1 0.9 - 1.1 [facility] Comment:INTERNATIONAL NORMAL IZED RATIO (INR) REFERENCE RANGES Reference RangeFor patients not on anticoagulant therapy: 0.9 - 1.1INR ranges for oral anticoagulanttherapy:For prevention and treatment of venous thrombosis and pulmonary embolism: 2.0 - 3.0For acute myocardial infarction with aspirin therapy: 2.0 - 3.0For acute myocardial infarction without aspirin therapy: 3.0 - 4.0For patients with mechanical prosthetic heart valves: 2.5 - 3.5 Blood Venous blood specimen / Unknown 02/02/2025 11:21 AM EDT 02/02/2025 2:09 PM EDT Marielos Brown MD LAB BLOOD ORDERABLES Fin al Result Performing Organization Address [facility] de Phone Number [facility] [address] [place] [phone] * D Dimer High Sensitivity (01/30/2025 1:02 PM EDT) D Dimer High Sensitivity <150 NG/ML [facility] Comment:D-DIMER HS REFERENCE RANGENote: Our [...] ORDERAB LES Final Result Performing Organization Address [facility] Co de Phone Number [facility] [address] [place] [phone] * High Sensitivity Troponin I (01/30/2025 1:02 PM EDT) Pathologist [facility] TROPONIN I HIGH SENSITIVITY 2.7 <3.5 - 17.0 ng/L [facility] Comment:The Rodriguez high sens itivity Troponin-I results should beused in conjunction with other diagnostic information suchas ECG, clinical observations and information, and patientsymptoms to aid in the diagnosis of DE. 01/30/2025 1:02 PM EDT 01/30/2025 1:05 PM EDT Lingt External Data Provider LAB BLOOD ORDERAB LES Final Result Performing Organization Address [facility] de Phone Number [facility] [address] [place] [phone] * NT-proBNP (01/30/2025 1:02 PM EDT) [facility] NT-proBNP 90.2 <300 pg/mL [facility] Comment:Reference Range:Age Group (years) NT-proBNP (pg/ml) InterpretationAll <300 Negative: HF unlikelyFor patients presenting to the ED with clinical suspicion ofnew onset or worsening HF, see below:18 to <50 >299.9 to <450.0 Grayzone: [id number] to 75 >299.9 to <900.0 other causes of>75 >299.9 to <1800.0 NT-proBNP [id number] to <50 >449.9 Positive: HF [id number] >899.9>75 >1799.9Note: Elevated NT-proBNP levels should be interpreted inthe context of other clinical information. 01/30/2025 1:02 PM EDT 01/30/2025 1:05 PM EDT us Generic External Data Provider LAB BLOOD ORDERAB LES Final Result [facility] [address] [place] [phone] * ECG 12 lead (01/30/2025 12:28 [...] PM EDT Narrative 01/30/2025 12:07 PM EDT [address] [address] XRay Report Signed Patient: David Silva MR#: [id number] : 2000 Acct:[id number] Age/Sex: 24 / F ADM Date: 01/30/25 Loc: .ED Attending Dr: Ordering Physician: Generic ED Physician Date of Service: 01/30/25 Procedure(s): XR chest 1V Accession Number(s): [id number] cc: Generic ED Physician; Marielle Hayes MD Reason for Exam: sob CLINICAL HISTORY: sob 1 view chest x-ray Comparison: CR/AR/SR - XR CHEST 2 VIEWS - 03/24/24 10:47 EST Findings: No consolidation or effusion. Normal size heart. No acute fracture. IMPRESSION: 1. No acute findings. This document has been electronically signed by: Dc Thomas MD on 01/30/2025 12:06:26 Dictated By: Dc Thomas MD Signed By: <Electronically signed by Dc Thomas MD in OV> 01/30/25 1207 DD/ 1206 TD/TT: 01/30/25 1206 Fan Balancer: Procedure Note Donotestelainterpreter, Image - 01/30/[address] [address] XRay Report Signed Patient: David SilvaMR#: [id number] : 2000Acct:[id number] Age/Sex: 24 / FADM Date: 01/30/25 Loc: HO.ED Attending Dr: Ordering Physician: Generic ED Physician Date of Service: 01/30/25 Procedure(s): XR chest 1V Accession Number(s): [id number] cc: Generic ED Physician; Marielle Hayes MD Reason for Exam: sob CLINICAL HISTORY: sob 1 view chest x-ray Comparison: CR/AR/SR - XR CHEST 2 VIEWS - 03/24/24 10:47 EST Findings: No consolidation or effusion. Normal size heart. No acute fracture. IMPRESSION: 1. No acute findings. This document has been electronically signed by: Dc Thomas MD on 01/30/2025 12:06:26 Dictated By: Dc Thomas MD Signed By: <Electronically signed by Dc Thomas MD in OV> 01/30/25 1207 DD/ 1206 TD/TT: 01/30/25 1206 Fan Balancer: [facility] External Provider IMG XR PROCEDURES Edited Result - Final * POCT Rapid Influenza B RODRIGUEZ ID NOW (01/30/2025 9:29 AM EDT) Influenza B Negative Negative, Indeterminate [facility] QC Media Lot # [id number] [facility] Lot# Expiration Date [id number] [facility] Swab 01/30/2025 9:29 AM EDT Marielos Brown MD POINT OF CARE TEST ENTER /EDIT ORDERABLES Final Result [facility] [address] [place] [phone] * POCT Rapid Strep A RODRIGUEZ ID NOW (01/30/2025 9:29 AM EDT) [facility] Rapid Strep A Screen Negative Negative, None Detected QC Media Lot # [id number] Lot# Expiration Date Swab 01/30/2025 9:29 AM EDT Mairelos Brown MD POINT OF CARE TEST ENTER /EDIT ORDERABLES Final Result * POCT Rapid Influenza A RODRIGUEZ ID NOW (01/30/2025 9:28 AM EDT) [facility] Influenza A Negative Negative, Indeterminate [facility] QC Media Lot # [id number] [facility] Lot# Expiration Date [facility] Swab 01/30/2025 9:28 AM EDT Marielos Brown MD POINT OF CARE TEST ENTER /EDIT ORDERABLES Final Result [facility] [address] [place] [phone] [phone] * POCT Rapid Covid-19 RODRIGUEZ ID NOW (01/30/2025 9:27 AM EDT) [facility] Coronavirus Antigen PCR Negative Negative, Indeterminate, None Detected, Invalid, Specimen unsatisfactory for evaluation, Weakly Positive, 2+ QC Media Lot # [id number] Lot# Expiration Date Swab 01/30/2025 9:27 AM EDT Marielos Brown MD POINT OF CARE TEST ENTER /EDIT ORDERABLES Final Result * Iron And Total Iron Binding Capacity (01/29/2025 9:05 AM EDT) [facility] Iron 81 30 - 160 mcg/dL [facility] Total Iron Binding Capacity 230 228 - 428 mcg/dL [facility] Percent Iron Saturation 35 15 - 50 % [facility] Unsaturated Iron Binding 149 ug/dL [facility] 01/29/2025 9:05 AM EDT 01/29/2025 9:05 AM EDT us Generic External Data Provider LAB BLOOD ORDERAB LES Final Result Performing Organization Address [facility]/ZIP Co de Phone Number [facility] [address] [place] [phone] * Ferritin (01/29/2025 9:05 AM EDT) Ferritin 73 10 - 122 ng/mL [facility] 01/29/2025 9:05 AM EDT 01/29/2025 9:05 AM EDT us Generic External Data Provider LAB BLOOD ORDERAB LES Final Result Performing Organization Address [facility] Co de Phone Number [facility] [address] [place] [phone] * Helicobacter pylori??Antigen, EIA, Stool (01/13/2025 3:33 PM EDT) H pylori Ag Stool SEE NOTE [facility] Comment:HELICOBACTER PYLORI AG, EIA, STOOL Micro Number: [id number] Test Status: Final Specimen Source: Stool Specimen Quality: Adequate H.pylori Ag: Not Detected Antimicrobials, proton pump inhibitors, and bismuth preparations inhibit H. pylori and ingestion up to two weeks prior to testing may cause false negative results. If clinically indicated the test should be repeated on a new specimen obtained two weeks after discontinuing treatment. Reference Range: Not DetectedTHIS TEST WAS PERFORMED AT:[facility] [address] [id number] PEREIRA MD Stool Rectal contents / Unknown 01/13/2025 3:33 PM EDT 01/14/2025 12:03 PM EDT Huan Kelly MD LAB BODY FLUIDS AND STOOLS ORDER SARAH Final Result [facility] [address] [place] [phone] * POCT , urine manually resulted (01/12/2025 9:34 AM EDT) Pathologist [facility] Preg Test, Ur Negative Negative, Indeterminate, None Detected, Invalid, Specimen unsatisfactory for evaluation, Weakly Positive, 2+ Urine 01/12/2025 9:34 AM EDT us Huan Kelly MD POINT OF CARE TEST ENTER/EDIT OR DERABLES Final Result * POCT HGB A1C (07/08/2024 10:06 AM EST) [facility] Hemoglobin A1C 5.7 4.0 - 6.0 % QC Media Lot # [id number] Lot# Expiration Date Blood 07/08/2024 10:0 6 AM EST us Margot Marquez MD POINT OF CARE TEST EN TER/EDIT ORDERABLES Final Result * Hepatitis C Ab (01/27/2024 10:13 AM EDT) [facility] Hepatitis C Antibody Nonreactive Nonreactive [facility] Comment:Antibodies to HCV no t detected; does not exclude early acuteHCV infection. 01/27/2024 10:1 3 AM EDT 01/27/2024 10:13 AM EDT Generic External Data Provider LAB BLOOD ORDERAB LES Final Result [facility] [address] [place] [phone] * HIV-1/2 Antigen and Antibodies, Fourth Generation, with Reflexes (01/27/2024 10:13 AM EDT) [facility] HIV AB/AG Nonreactive Nonreactive [facility] Comment:HIV-1 p24 Ag and/or HIV-1/HIV-2 Ab not detected.A test result that is nonreactive does not exclude thepossibility of exposure to or infection with HIV-1 and/orHIV-2. Nonreactive results in this assay for individualswith prior exposure to HIV-1 and/or HIV-2 may be due toantigen and antibody levels that are below the limit ofdetection of this assay.[employer] HIV Ag/Ab Combo assay result andsupplemental assay results should be interpreted inconjunction with the patient's clinical presentation,history and other laboratory results. If the results areinconsistent with clinical evidence, additional testing issuggested to confirm the result. 01/27/2024 10:1 3 AM EDT 01/27/2024 10:13 AM EDT Generic External Data Provider LAB BLOOD ORDERAB LES Final Result Performing Organization Address City/State/[facility] Co de Phone Number [facility] [address] [place] [phone] * Pap Smear (06/25/2022) Pap Negative for intraephithelial lesion or malignancy Negative for intraephithelial lesion or malignancy, Other Historical Provider HEALTH MAINTENANCE Final Result from Last 3 Months or Most Recently Relevant to Health Maintenance Insurance [facility] STAND[facility] , [address] [place] [address] [place] ST[place] AD[place] Care Teams District Court Administrator Relationship Specialty Start Date End Date Marielle Hayes MD [address] [place] [phone] PCP - General Family Medicine 01/25/22 marielle Hayes Machinist Supervisor OutsideProfessor Of Biological Sciences 07/11/23 Bryan Vyas Machinist Supervisor OutsideProfessor Of Biological Sciences 11/05/23
== END 2025-04-05 09:59 | disposition home or self-care (01) ==
PROVIDERS: PCP Family Medicine; Visit Provider Nurse Practitioner Family
DX: R06.00 Dyspnea, unspecified (principal)
CPT/HCPCS: 99203

== ENCOUNTER → 2025-04-19 09:37 | Outpatient (REF) | payer OTHER, MEDICAID, SELFPAY ==
--- NOTE | 2025-04-19 09:39 | CA_ITS ---
Transthoracic Echocardiogram Patient (Last, First, Middle): David Schwarz, Gender: F Date of : 2000 Age: 25 Procedure Date: 04/19/2025 Procedure Type: Transthoracic Echocardiogram Location: OP Height: 167.64 cm Weight: 91.63 kg BSA: 2.01 m2 Heart Rate: bpm BP: 110 / 64 mmHg Food Service Coordinator: EDDIE Referring MD: Bora Gil MD Ob/Gyn Doctor: Maxime Reese MD Symptoms: PALPITATIONS,SYNCOPE,DIFF.BREATHING Study Quality: Adequate ECG Rhythm: Sinus Conclusions: - Essentially normal study Findings Left Ventricle Normal left ventricular size, thickness, and systolic function. The visually estimated ejection fraction is between 60-65%. Diastolic function is normal for age. Right Ventricle Normal right ventricular cavity size and systolic function. Atria Both atria are normal in size. Interatrial shunt cannot be excluded. There is a prominent eustachian valve. Aortic Valve The aortic valve structure and function is likely normal. There is no aortic valve stenosis. There is no aortic valve regurgitation. Mitral Valve Normal mitral valve structure and function. There is trace mitral valve regurgitation. There is no mitral valve stenosis. Pulmonic Valve The pulmonic valve is likely normal. There is trace to mild pulmonic valve regurgitation. Tricuspid Valve Normal tricuspid valve structure. There is trace tricuspid valve regurgitation. The right ventricular systolic pressure is normal. Normal right atrial pressure. There is no evidence of pulmonary hypertension. Great Vessels All visible segments of the aorta are normal in size. The visualized portions of the pulmonary artery and branches are normal. Venous The inferior vena cava is normal in size and collapses greater than 50% with inspiration. Pericardium/Pleural There is no evidence of pericardial effusion. Prior Study Comparison No prior study available for comparison. Measurements 2D Linear Measurements IVSd: 0.83 0.6-0.9/0.6-1.0 cm LVIDd: 4.35 3.9-5.3/4.2-5.9 cm LVIDd Index: 2.16 2.4-3.2/2.2-3.1 cm/m2 LVIDs: 3.18 2.0-3.6 cm LVPWd: 0.96 0.7-1.1 cm LA Diam: 3.10 2.7-3.8/3.0-4.0 cm LAIDs Index: 1.54 1.5-2.3 cm/m2 LV Mass: 154.42 67-162/88-224 g LV Mass Index: 76.83 43-95/49-115 g/m2 LVOT Diam: 2.30 3.0+(-)1.3 cm 2D Systolic Function EF 4C: 61.40 >55% EF 2C: 63.20 >55% EF BiP: 62.60 >55% Mitral Valve MV Pk E: 0.83 MV PK A: 0.51 MV Decel Time: 240.00 E/A: 1.60 E'Lateral: 15.70 E'Medial: 10.00 E/E' Med: 8.30 E/E' Lat: 5.30 PHT: 70.00 MVA PHT: 3.14 Decel [place]ord: 3.45 Aortic Valve AoV Pk Chidi: 1.24 AoV Mn Chidi: 0.86 AoV VTI: 0.26 AoV Pk Grad: 6.00 Aov Mn Grad: 3.00 LISETH Cont.VTI: 2.88 LVOT LVOT Pk Chidi: 0.94 LVOT Mn Chidi: 0.64 LVOT VTI: 0.18 LVOT Pk Grad: 4.00 LVOT Mn Grad: 2.00 LVOT Diam: 2.30 LVOT Area: 4.15 Diastolic Function MV Pk E: 0.83 MV Pk A: 0.51 E/A: 1.60 E'Medial: 10.00 E/E' Med: 8.30 E' Laterial: 15.70 E/E' Lat: 5.30 Right Ventricle TAPSE (mm): 23.50 TVS' Chidi: 12.20 Tricuspid Valve TR Pk Chidi: 1.16 TR Pk Grad: 5.00 RA Press: 3.00 RVSP: 8.00 Great Vessels Aorta Sinus of Valsalva: 3.00 2.0-3.5 cm Ao Asc: 2.80 2.1-3.4 cm Ao Arch: 2.30 Pulmonary Veins Pulm Vein S/D 0.50 Updated in Other Vendor System with Status of Final Maxime Reese MD electronically signed on 04/19/2025 10:56:12 AM with status of Final
== END ==
LOC: HO.CARD 09:37
PROVIDERS: PCP Family Medicine; Visit Provider Internal Medicine
DX: R00.2 Palpitations (principal); R55 Syncope and collapse; R06.89 Other abnormalities of breathing
CPT/HCPCS: 93225; 93306

== ENCOUNTER → 2025-04-19 09:39 | Outpatient (BNV) | payer OTHER, MEDICAID, SELFPAY | PROVIDERS: PCP Family Medicine; Visit Provider Internal Medicine Cardiovascular Disease | DX: R00.2 Palpitations (principal); R55 Syncope and collapse; R06.02 Shortness of breath | CPT/HCPCS: 93306 ==